=== PATIENT | female | born 1970 | race Caucasian/White ===

== ENCOUNTER 2018-03-10 15:54 | Observation (INO) | payer MEDICAID, SELFPAY ==
[2018-03-10 15:54] VITALS: BP 160/109; PULSE 108; RESP 24; TEMP 36.9; O2SAT 85; BMI 38.4
--- NOTE | 2018-03-10 16:06 | EKG12_ITS ---
Test Reason : SOB Blood Pressure : / mmHG Vent. Rate : 093 BPM Atrial Rate : 093 BPM P-R Int : 134 ms QRS Dur : 080 ms QT Int : 354 ms P-R-T Axes : 075 066 051 degrees QTc Int : 440 ms Normal sinus rhythm Normal ECG Confirmed by SASKIA COBURN ([id number]), publications editor CELINE CORONEL ([id number]) on 03/12/2018 2:19:47 PM Referred By: SOCORRO Confirmed By:SASKIA COBURN
--- NOTE | 2018-03-10 16:10 | RAD_ITS ---
STUDY: X-RAY CHEST REASON FOR EXAM: Female, 47 years old. Cough TECHNIQUE: Frontal view of the chest COMPARISON: 10/26/2017 FINDINGS: The lungs are clear. There are no pleural effusions. There is no pneumothorax. The heart is normal in size. The visualized osseous structures are within normal limits. RAD/Chest 1 View (Portable) IMPRESSION: No acute thoracic pathology. Electronically Signed: Kwan Sahu, at 16:40 EDT Tel , Service support ,
--- NOTE | 2018-03-10 16:22 | ED.VISSUMM ---
- ER Visit Summary Date of Service: 03/10/18 Chief Complaint: Shortness of breath History of Present Illness: The patient is a 47 F with history of COPD who uses oxygen from time to time at home presents to the emergency department shortness of breath. Patient states over the past 2-3 days, she has had gradually worsening shortness of breath. The patient states that she has started smoking again. She does follow with Dr. Dupont for pulmonology. She states she feels like she cannot catch her breath. She denies any chest pain. She has had no productive sputum. She denies fevers but has had chills and sweats. She states she just feels like she cannot get anything up. She has been using her nebulizer every 4 hours. She feels like it is not helping. The last time she has been on steroids or antibiotics was greater than 3 months ago. Physical Examination: Vital signs reviewed General: Well-nourished, well-developed Head: Normocephalic, atraumatic Eyes: Pupils equal and reactive, extraocular muscles intact Neck, supple, no lymphadenopathy Heart: Regular tachycardiac rate Respiratory: Accessory muscle use with wheezing in all [place] Abdomen: Soft, nontender, nondistended, no peritoneal signs Back: Nontender Extremities: Nontender, no edema, no cords Skin: Normal color no rash Neuro: Alert and oriented, no focal or lateralizing deficits Test Results: [] Emergency Department Course and Treatment: The patient presents with hypoxia, wheezing, shortness of breath. X-ray was obtained. There is no focal infiltrate. Labs are obtained and relatively unremarkable. With treatments and steroids, the patient's aeration improved. She still has some resting bronchospasm. At this time, given the severity of her symptoms, increased oxygen requirement, and persistent bronchospasm I do feel that she will benefit from admission. I did cover the patient with azithromycin. She had already been given Solu-Medrol. Patient was discussed with the hospitalist and will be admitted. Treatment Plan: [] Disposition: Admission Impression: 1. COPD exacerbation This note was generated with [employer] software. It may contain incorrect words, spelling, and punctuation that were not noted in review of the chart prior to signing ED Disposition - Plan for ED Patient: Chief Complaint: Shortness of Breath Referrals: Rita Melton MD [Primary Care Provider] -
[2018-03-10] MEDS: 0.9% Normal Saline 1,000 ML 150 ML IV (16:24)
[2018-03-10] MEDS: Ipratropium/Albuterol Sulfate 3 ML AMPUL.NEB INHALATION (16:25)
[2018-03-10] MEDS: Albuterol 2.5 MG/3 ML VIAL.NEB. INHALATION ×3 (16:25)
[2018-03-10 16:26] VITALS: PULSE 90; RESP 20
[2018-03-10 16:30] LABS: Absolute Lymphocyte Count 1.98 X10^3/ul (0.83-4.51); Absolute Neutrophil Count 6.9 X10^3/uL (2.0-7.7); Basophil# 0.05 X10^3/uL; Basophil% 0.5 % (0-1); Eosinophil# 0.31 X10^3/uL; Eosinophils% 3.1 % (0-5); Hematocrit 45.6 % (37-47); Hemoglobin 14.8 g/dl (12.0-15.0); Lymphocyte # 1.98 X10^3/ul (4.0); Lymphocyte % 19.9 % (19-41); Mean Corp Hgb Conc 32.5 g/gl (32-36); Mean Corpuscular Hgb 28.8 pg (27.0-32.0); Mean Corpuscular Volume 88.9 fL (81-99); Mean Platelet Vol. 9.9 fl (6.2-12.0); Monocyte# 0.67 X10^3/uL; Monocyte% 6.7 % (0-10); Neutrophil # 6.91 X10^3/uL (2.7-7.7); Neutrophil % 69.6 % (47-70); Platelet Count 524 K/mm3 (150-450); RBC Distribution Width SD 44.6 fl (35.1-43.9); Red Blood Count 5.13 M/mm3 (4.2-5.4); White Blood Count 9.9 K/mm3 (4.4-11.0)
[2018-03-10] MEDS: MethylPREDNISolone 125 MG/2 ML Vial IV (16:30)
[2018-03-10 16:34] LABS: POSITIVE COUNT NO; POSITIVE DIFFERENTIAL NO; POSITIVE MORPHOLOGY NO
[2018-03-10 16:50] LABS: Anion Gap 8 (5-15); BUN 12 mg/dL (7-18); BUN/Creat Ratio 16.5 RATIO (10-20); Chloride 99 mmol/L (98-107); Creatinine, Serum 0.73 mg/dL (0.55-1.02); EST Glomerular Filtration Rate 92 mL/min (>60); Est Glom Filt Rate - Afr Amer 111 mL/min (>60); Estimated Creatinine Clearance 76.16 ml/min; Glucose 210 mg/dL (74-106); Sodium Level 139 mmol/L (136-145)
[2018-03-10 16:59] LABS: Lactic Acid 1.7 mmol/L (0.4-2.0)
[2018-03-10 17:10] VITALS: BP 159/84; PULSE 91; RESP 16; O2SAT 96
[2018-03-10 17:26] VITALS: BMI 38.4
[2018-03-10 17:29] VITALS: BP 157/91; PULSE 66; RESP 16; O2SAT 97
[2018-03-10 17:29] LABS: BNP,B-Type NATRIURETIC PEPTIDE 13.7 pg/mL (0-100)
[2018-03-10 17:57] VITALS: BMI 41.2
[2018-03-10 18:00] VITALS: BP 150/96; PULSE 95; RESP 20; TEMP 36.6; O2SAT 93
--- NOTE | 2018-03-10 19:04 | HP.PCM_ITS ---
Problem List (1) COPD with acute exacerbation Status: Acute (2) Asthma Status: Chronic Qualifiers: Asthma severity: unspecified severity Asthma persistence: unspecified Asthma complication type: unspecified Qualified Code(s): J45.909 - Unspecified asthma, uncomplicated; J45.909 - Unspecified asthma, uncomplicated; J45.909 - Unspecified asthma, uncomplicated (3) Benign essential hypertension Status: Chronic (4) Chronic back pain Status: Chronic (5) Diabetes mellitus, type II Status: Chronic (6) GERD (gastroesophageal reflux disease) Status: Chronic History of Present Illness Date of Admission: 03/10/18 Chief Complaint: shorthness of breath, cough and wheezing The patient is a 47 year old F with past medical history of COPD/asthma, type II, essential hypertension and obesity who presented to the emergency room due to progressive shortness of breath cough and wheezing past 2 days. She used her home bronchodilator therapy with no relief and she decided to come to the emergency room for further evaluation. Her chest x-ray showed no acute thoracic pathology. Was diagnosed with acute COPD exacerbation, she was given IV steroids bronchodilator therapy and IV Zithromax in the emergency room and admitted to the hospital for further management. When I saw her she was alert and oriented to time place and person ,she was apparently tachypneic with use of accessory respiratory musculature. Past Medical History Past Medical History (Chronic Problems): Chronic Problems (Last Reviewed 11/13/17 @ 09:36 by Danni Bahena NP-C) Tobacco abuse (Chronic) Benign essential hypertension (Chronic) Herniated thoracic disc without myelopathy (Chronic) Chronic back pain (Chronic) COPD (Chronic) Asthma (Chronic) GERD (gastroesophageal reflux disease) (Chronic) Obesity (BMI 30-39.9) (Chronic) Diabetes mellitus, type II (Chronic) Allergies aspirin Allergy (Verified 03/10/18 15:56) Anaphylaxis cyclobenzaprine HCl [From Flexeril] Allergy (Verified 03/10/18 15:56) Rash levofloxacin [From Levaquin] Allergy (Verified 03/10/18 15:56) Rash naproxen [From Naprosyn] Allergy (Verified 03/10/18 15:56) Anaphylaxis bupropion HCl [From Wellbutrin] Adverse Reaction (Verified 03/10/18 17:24) nightmares NIGHTMARES doxycycline Adverse Reaction (Verified 03/10/18 15:56) Diarrhea Home Medications: Ambulatory Orders Medication Instructions Recorded Amlodipine [Norvasc] 10 mg PO DAILY 08/13/15 Lisinopril [Zestril] 40 mg PO DAILY 02/11/16 Hydrochlorothiazide [Hctz] 25 mg PO DAILY 10/26/17 Oxygen, Home [Home Oxygen] 2 - 4 lpm NASAL PRN PRN 10/26/17 Albuterol Aerosols [Ventolin 2.5 mg INHALATION Q2H PRN PRN #1 10/29/17 Aerosols] box Albuterol IH (ProAir) [Proair Hfa] 2 puff INHALATION Q4H PRN PRN #1 10/29/17 inhaler epinephrine 1 mg/mL injection kit 1 mg IM Q10M PRN #1 ea 11/13/17 Budesonide/Formoterol 160/4.5 2 puff INHALATION BID 03/10/18 [Symbicort 160/4.5 Mcg Inhaler (SP)] Ipratropium/Albuterol Sulfate 3 ml INHALATION Q6H PRN PRN 03/10/18 [Duoneb] Surgical History: - - x 2, BLTL, chest tube 3 y/o for spontaneous pneumothorax. 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 She is para 2 4 with 2 abortions. Status post IUD insertion Smoking Status: Current every day smoker Tobacco Use: Cigarettes - *Family History Sibling History Items: Pulmonary Disease - age 34 secondary to pulmonary hypertension Maternal History Items: Cancer - alive age 63, breast and skin Paternal History Items: Cancer - Skin cancer, COPD - alive age 65, Heart Disease, Hypertension, No pertinent history Review of Systems Comment: All Systems were reviewed with pertinent positives mentioned in the HPI above. VTE Information - Inpt Only VTE Present on Admission: No VTE Mechan Device Prophylaxis: SCD's VTE Pharm Prophylaxis ordered?: Yes - Physical Exam General: Alert, Oriented x3 HEENT: Atraumatic Oral: Moist Mucosa Neck: Supple, No JVD Lungs: Short of Breath, Using Accessory Muscles, Wheezes Abdomen: Bowel Sounds Present, Soft, Non Tender, Non-Distended Extremities: No edema Skin: No rashes Neurological: Cranial nerves II-XII grossly intact, Motor Exam 5/5 strength throughout Vital Signs Temp Pulse Resp BP Pulse Ox 98 F 95 20 H 150/96 H 93 03/10/18 18:00 03/10/18 18:00 03/10/18 18:00 03/10/18 18:00 03/10/18 18:00 Oxygen Flow Rate (L/min) 2 Oxygen Delivery Method Nasal Cannula Weight: 102.2 kg Body Mass Index (BMI) 41.2 Assessment/Plan 1. Acute respiratory failure with hypoxia due to acute COPD exacerbation; we will continue on supplemental oxygen and wean as tolerated. 2. Acute COPD exacerbation; we will place her on IV steroids, bronchodilator therapy and Zithromax IV. I would ask Dr. 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 3. Diabetes type II; will hold oral agents and place him on regular insulin sliding scale for glycemic spikes. 4. Essential hypertension; we will resume her home medications without change. 5. Morbid Obesity; weight loss recommended. 6. Prophylactic therapy; DVT prophylaxis with Lovenox and GI bleed prophylaxis with PPI Code Visit Inpatient E&M: 28227 Init Hosp L3
[2018-03-10 19:32] VITALS: BP 155/94; PULSE 99; RESP 20; TEMP 36.7; O2SAT 94
[2018-03-10] MEDS: Acetaminophen 325 MG Tablet 650 MG PO (21:25)
[2018-03-10 21:31] LABS: Bedside Glucose 329 mg/dL (70-110)
[2018-03-11] VITALS (14 sets, daily range): BP systolic 131–161; BP diastolic 68–118; PULSE 96–110; RESP 14–20; TEMP 36.3–37; O2SAT 94–99
[2018-03-11] MEDS: MethylPREDNISolone 125 MG/2 ML Vial 60 MG IV ×4 (00:33→22:40)
[2018-03-11] MEDS: 0.9% NaCl Peripheral Flush Adult/Peds IV ×4 (00:34→11:35)
[2018-03-11 06:07] LABS: BUN 12 mg/dL (7-18); Creatinine, Serum 0.84 mg/dL (0.55-1.02); Estimated Creatinine Clearance 66.19 ml/min; Glucose 342 mg/dL (74-106)
[2018-03-11 06:08] LABS: Anion Gap 8 (5-15); BUN/Creat Ratio 14.3 RATIO (10-20); Calcium,Total 9.2 mg/dL (8.5-10.1); Chloride 100 mmol/L (98-107); EST Glomerular Filtration Rate 78 mL/min (>60); Est Glom Filt Rate - Afr Amer 94 mL/min (>60); Potassium 4.4 mmol/L (3.5-5.1); Sodium Level 137 mmol/L (136-145)
[2018-03-11 06:11] LABS: Absolute Neutrophil Count 7.2 X10^3/uL (2.0-7.7); Basophil# 0.01 X10^3/uL; Basophil% 0.1 % (0-1); Hematocrit 45.5 % (37-47); Hemoglobin 14.3 g/dl (12.0-15.0); Lymphocyte % 10.9 % (19-41); Mean Corp Hgb Conc 31.4 g/gl (32-36); Mean Corpuscular Hgb 28.1 pg (27.0-32.0); Mean Corpuscular Volume 89.6 fL (81-99); Mean Platelet Vol. 9.9 fl (6.2-12.0); Monocyte# 0.11 X10^3/uL; Monocyte% 1.3 % (0-10); Neutrophil # 7.23 X10^3/uL (2.7-7.7); Neutrophil % 87.3 % (47-70); Platelet Count 538 K/mm3 (150-450); RBC Distribution Width CV 13.6 % (11.6-14.6); RBC Distribution Width SD 44.4 fl (35.1-43.9); Red Blood Count 5.08 M/mm3 (4.2-5.4); White Blood Count 8.3 K/mm3 (4.4-11.0)
[2018-03-11 06:26] LABS: POSITIVE COUNT NO; POSITIVE DIFFERENTIAL NO; POSITIVE MORPHOLOGY NO
[2018-03-11] MEDS: Acetaminophen 325 MG Tablet 650 MG PO ×2 (06:36→20:43)
[2018-03-11 06:46] LABS: Bedside Glucose 279 mg/dL (70-110)
[2018-03-11] MEDS: Albuterol 2.5 MG/3 ML VIAL.NEB. INHALATION (06:47)
--- NOTE | 2018-03-11 08:40 | PCM.PROGNOTE ---
Patient Problems: Active and Suspected Problems (Last Reviewed 11/13/17 @ 09:36 by Danni Bahena NP-Shoaib) Acute respiratory failure with hypoxia (Acute) Subjective: Chief complaint: Follow-up after admission for acute COPD exacerbation and acute hypoxic respiratory failure. Patient seen and examined. No acute events overnight. She reported minimal improvement of her shortness of breath, still having significant wheezing. Complains of cough with clear sputum. Denies fever chills. Denied chest pain or palpitation. Denies abdominal pain, nausea vomiting. She is afebrile, tachycardic, blood pressure slightly elevated, pulse ox is 94% on 2 L. - Physical Exam General: Alert, Oriented x3, Cooperative, - - Moderately short of breath, audible wheezing. HEENT: Atraumatic, PERRLA, EOMI Oral: Moist Mucosa, No Gingival or Mucosal Lesions/ Ulcerations Neck: Supple, No JVD, Negative Carotid Bruits, Trachea Midline, Thyroid Normal Size and Texture Lungs: No rhonchi, No rales, Short of Breath, Wheezes, - - Decreased breath sounds bilateral, bilateral expiratory wheezes. Cardiovascular: Regular rate, Regular Rhythm, Normal S1, Normal S2, No murmurs, PMI Normal, Tachycardic Abdomen: Bowel Sounds Present, Soft, Non Tender, Non-Distended, No Hepato-splenomegaly, Obese Extremities: No clubbing, No cyanosis, No edema Skin: No rashes, No breakdown Lymphatic: No Cervical, Supraclavicular, or Inguinal Adenopathy Neurological: Cranial nerves II-XII grossly intact, Motor Exam 5/5 strength throughout Psych/Mental Status: Normal Affect, Appropriate, Alert and oriented to time, place, person, mood and affect Vital Signs Temp Pulse Resp BP Pulse Ox 98.2 F 104 H 16 156/98 H 98 03/11/18 06:45 03/11/18 06:47 03/11/18 06:47 03/11/18 06:45 03/11/18 06:47 Oxygen Flow Rate (L/min) 2 Oxygen Delivery Method Nasal Cannula Weight: 225 lb 4.999 oz Body Mass Index (BMI) 41.2 Microbiology Past 72 Hours 03/10/18 23:10 Influenza Types A,B Direct FA (DARRYL) - Final Mucosa - Nose Laboratory Tests Past 24 Hrs 04/18/18 04/18/18 05:14 05:14 WBC 8.3 RBC 5.08 Hgb 14.3 Hct 45.5 MCV 89.6 MCH 28.1 MCHC 31.4 L RDW 13.6 RDW Differential 44.4 H Plt Count 538 H MPV 9.9 Immature Gran % (Auto) 0.400 Neut % (Auto) 87.3 H Lymph % (Auto) 10.9 L [place] % (Auto) 1.3 Eos % (Auto) 0.0 Baso % (Auto) 0.1 Absolute Neuts (auto) 7.2 Absolute Lymphs (auto) 0.90 Total Counted Not Reportable Sodium 137 Potassium 4.4 Chloride 100 Carbon Dioxide 29.0 Anion Gap 8 BUN 12 Creatinine 0.84 Estim Creat Clear Calc 66.19 Est GFR (MDRD) Af Amer 94 Est GFR (MDRD) Non-Af 78 BUN/Creatinine Ratio 14.3 Glucose 342 H Calcium 9.2 POC Glucose 03/11/18 03/10/18 06:34 21:24 POC Glucose 279 H 329 H Clinical Impression(s) from Imaging Studies Chest X-Ray 03/10/18 16:10 IMPRESSION: No acute thoracic pathology. Electronically Signed: Kwan Cristinaaaron, at 16:40 EDT Tel , Service support , Medical Necessity - Tobacco Use Smoking Status: Current every day smoker Tobacco Use: Cigarettes Assessment/Plan Active and Suspected Problems (Last Reviewed 11/13/17 @ 09:36 by Danni Bahena NP-C) Acute respiratory failure with hypoxia (Acute) This is a 47 years old female patient presented to the emergency room because of shortness of breath, wheezing and cough and she was found to have acute COPD exacerbation complicated by acute hypoxic respiratory failure and also found to have hyperglycemia secondary to steroids. #1 acute COPD exacerbation: She is on IV Solu-Medrol, IV Zithromax and bronchodilators. She reported mild improvement of her symptoms. Still requiring oxygen at 2 L. According to the patient, she has been on oxygen as needed at home and she uses it only when she had COPD flareup. Normally, she is not on oxygen. Chest x-ray showed no acute infiltrate, pneumonia ruled out. Nasal swab for influenza a and B were negative. Respiratory panel for viruses is pending. Blood cultures pending. Pulmonology consulted. Plan: Continue same treatment. #2 acute hypoxic respiratory failure: Secondary to above, patient was on oxygen at home 1 week as needed but normally she does not use it. At this time, she is on 2 L with audible wheezing and she is short of breath. Plan as above. #3 type 2 diabetes mellitus/ hyperglycemia: Patient is not taking any medication and she mentioned that her blood sugars only high when she is on IV Solu-Medrol. Her hemoglobin A1c was 8.5 on October, and this is consistent with type 2 diabetes mellitus. Plan: Start Levemir insulin twice daily, continue sliding scale, nutrition consult for diabetic education, will need to start him on oral hypoglycemic drug. #4 hypertension: Blood pressure stable, continue HCTZ and lisinopril. #5 chronic back pain: Stable, no acute issues. She is not on chronic pain medicine. #6 GERD: Continue Protonix. #7 DVT prophylaxis: Subcu Lovenox. This note was generated with [employer] dictation software. It may contain incorrect words, spelling, and punctuation that were not noted in checking the note before signing. Code Visit Inpatient E&M: 40561 Subs Hosp L2
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
[2018-03-11] MEDS: Pantoprazole Sodium 40 MG Tablet PO (09:54)
[2018-03-11] MEDS: amLODIPine 10 MG Tablet PO (09:54)
[2018-03-11] MEDS: Lisinopril 40 MG Tablet PO (09:54)
[2018-03-11] MEDS: hydroCHLOROthiazide 25 MG Tablet PO (09:54)
[2018-03-11] MEDS: Enoxaparin 40 MG/0.4 ML Syringe SC (09:54)
[2018-03-11 10:41] LABS: Bedside Glucose 393 mg/dL (70-110)
--- NOTE | 2018-03-11 11:20 | CASEMGMT ---
Addendum entered by Cindi Castaneda 03/11/18 11:39: Referral made to DIMITRY Johnson regarding Medicaid application and financial services. Original Note: RN HOANG Face to Face with patient for initial transition planning/care coordination assessment. RN HOANG introduced self and role at [facility]. Patient lying in bed, alert and oriented. Patient willing to participate in assessment and is able to answer all questions appropriately. Care providers, pharmacy, and demographics verified. See link attached. Patient wishes to discharge home, denies need for home health at this time. Patient states she has no further needs or concerns at this time. Patient states that she has a concentrator and portable tanks at home from [employer]. Patient states that she thinks her concetrator is not working properly. RN HOANG offered to call [facility] to arrange for aviation safety technician to come to house to service concentrator and tanks. Patient stated that she would do it herself since she doesn't have insurance right now and doesn't want a bill. Patient requested number for [employer]. RN CM will provide number for [employer] to patient. RN CM called Kary at [facility] in regards to patient's services. Per Kary, patient has a bill with [employer] and they have been trying to get in touch with patient to setup payment plan or update insurance. If patient would reach out to [employer] and setup payment plan then they would service the concentrator. RN CM will update patient regarding information from [employer]. CM to follow for discharge planning needs that may arise. Disposition Plan: Patient to discharge home with family support and follow-up plans in place. Ivelisse CUELLAR, RN, CM
--- NOTE | 2018-03-11 12:24 | CASEMGMT ---
Social Work Note SW provided pt with Medicaid application. Pt would like to fill out application herself and take it to S at discharge. SW asked pt if she needed any other resources and pt denied. Pt denied additional needs or concerns at this time. 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
[2018-03-11] MEDS: Ipratropium/Albuterol Sulfate 3 ML AMPUL.NEB INHALATION ×3 (15:35→22:47)
[2018-03-11 17:11] LABS: Bedside Glucose > 500 mg/dL (70-110)
[2018-03-11 19:21] LABS: Bedside Glucose > 500 mg/dL (70-110)
[2018-03-11 20:51] LABS: Glucose 509 mg/dL (74-106)
[2018-03-11 22:50] LABS: Bedside Glucose 399 mg/dL (70-110)
[2018-03-12] VITALS (10 sets, daily range): BP systolic 140–161; BP diastolic 76–92; PULSE 98–113; RESP 12–22; TEMP 36.6; O2SAT 95–98
[2018-03-12] MEDS: Ipratropium/Albuterol Sulfate 3 ML AMPUL.NEB INHALATION ×5 (02:59→23:15)
[2018-03-12 06:13] LABS: Anion Gap 8 (5-15); BUN 21 mg/dL (7-18); BUN/Creat Ratio 26.1 RATIO (10-20); Calcium,Total 9.1 mg/dL (8.5-10.1); Chloride 101 mmol/L (98-107); Creatinine, Serum 0.81 mg/dL (0.55-1.02); EST Glomerular Filtration Rate 81 mL/min (>60); Est Glom Filt Rate - Afr Amer 98 mL/min (>60); Estimated Creatinine Clearance 68.64 ml/min; Glucose 330 mg/dL (74-106); Potassium 4.4 mmol/L (3.5-5.1); Sodium Level 136 mmol/L (136-145)
[2018-03-12 06:24] LABS: Absolute Neutrophil Count 19.1 X10^3/uL (2.0-7.7); Basophil# 0.01 X10^3/uL; Hematocrit 44.7 % (37-47); Hemoglobin 14.2 g/dl (12.0-15.0); Lymphocyte % 5.7 % (19-41); Mean Corp Hgb Conc 31.8 g/gl (32-36); Mean Corpuscular Hgb 28.3 pg (27.0-32.0); Mean Corpuscular Volume 89.2 fL (81-99); Mean Platelet Vol. 10.1 fl (6.2-12.0); Monocyte% 3.8 % (0-10); Neutrophil # 19.13 X10^3/uL (2.7-7.7); Neutrophil % 90.2 % (47-70); Platelet Count 537 K/mm3 (150-450); RBC Distribution Width CV 13.7 % (11.6-14.6); RBC Distribution Width SD 44.6 fl (35.1-43.9); Red Blood Count 5.01 M/mm3 (4.2-5.4); White Blood Count 21.2 K/mm3 (4.4-11.0)
[2018-03-12 06:31] LABS: POSITIVE COUNT NO; POSITIVE DIFFERENTIAL NO; POSITIVE MORPHOLOGY NO
[2018-03-12 06:46] LABS: Bedside Glucose 352 mg/dL (70-110)
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
[2018-03-12] MEDS: Acetaminophen 325 MG Tablet 650 MG PO ×2 (08:35→16:14)
[2018-03-12] MEDS: predniSONE 20 MG Tablet 40 MG PO (08:36)
[2018-03-12] MEDS: hydroCHLOROthiazide 25 MG Tablet PO (08:37)
[2018-03-12] MEDS: Lisinopril 40 MG Tablet PO (08:37)
[2018-03-12] MEDS: amLODIPine 10 MG Tablet PO (08:37)
[2018-03-12] MEDS: Enoxaparin 40 MG/0.4 ML Syringe SC (08:37)
[2018-03-12] MEDS: Pantoprazole Sodium 40 MG Tablet PO (08:38)
--- NOTE | 2018-03-12 08:41 | PN_ITS ---
Patient Problems: Active and Suspected Problems (Last Reviewed 11/13/17 @ 09:36 by Danni Bahena NP-Shoaib) Acute respiratory failure with hypoxia (Acute) Subjective: The patient was seen and examined. She is complaining of fatigue since she did not sleep well last night. States she had a bad dream. No complaints of worsening breathing. Feels overall somewhat better today. Patient saturating 98% on 2 L of oxygen supplementation. Ambulating to the bathroom without difficulty. Blood sugars elevated with IV steroids. Viral respiratory panel was negative. Blood cultures are pending. Sputum has not yet been collected, provided specimen cup to the patient. - Physical Exam General: Alert, Oriented x3, Cooperative, No apparent distress, - - No conversational dyspnea HEENT: Atraumatic, Normocephalic Oral: Moist Mucosa Neck: Supple, No Nodes, Trachea Midline Lungs: No rhonchi, No rales, Diminished, Wheezes - Improved Cardiovascular: Regular Rhythm, Normal S1, Normal S2, No murmurs, No rub noted, No Gallop, Tachycardic Abdomen: Bowel Sounds Present, Soft, Non Tender, Obese Extremities: No cyanosis, No edema, Clubbing Skin: No rashes, No breakdown Musculoskeletal: No Tenderness to Palpation of Joints or Extremities Lymphatic: No Cervical, Supraclavicular, or Inguinal Adenopathy Neurological: Neuro grossly intact Psych/Mental Status: Alert and oriented to time, place, person, mood and affect Vital Signs Temp Pulse Resp BP Pulse Ox 98 F 100 16 161/92 H 98 03/12/18 02:00 03/12/18 03:00 03/12/18 03:00 03/12/18 02:00 03/12/18 02:00 Oxygen Flow Rate (L/min) 2 Oxygen Delivery Method Nasal Cannula Weight: 225 lb 4.999 oz Body Mass Index (BMI) 41.2 Intake and Output for Last 24 Hours 03/10/18 03/11/18 03/12/18 23:59 23:59 23:59 Intake Total 700 / 700 Balance 700 / 700 Microbiology Past 72 Hours 03/11/18 11:00 Respiratory Panel (PCR) - Final Mucosa - Nose 03/10/18 23:10 Influenza Types A,B Direct FA (DARRYL) - Final Mucosa - Nose Laboratory Tests Past 24 Hrs 04/18/18 04/19/18 04/19/18 20:16 05:40 05:40 WBC 21.2 H RBC 5.01 Hgb 14.2 Hct 44.7 MCV 89.2 MCH 28.3 MCHC 31.8 L RDW 13.7 RDW Differential 44.6 H Plt Count 537 H MPV 10.1 Immature Gran % (Auto) 0.300 Neut % (Auto) 90.2 H Lymph % (Auto) 5.7 L [place] % (Auto) 3.8 Eos % (Auto) 0.0 Baso % (Auto) 0.0 Absolute Neuts (auto) 19.1 H Absolute Lymphs (auto) 1.20 Total Counted Not Reportable Sodium 136 Potassium 4.4 Chloride 101 Carbon Dioxide 27.0 Anion Gap 8 BUN 21 H Creatinine 0.81 Estim Creat Clear Calc 68.64 Est GFR (MDRD) Af Amer 98 Est GFR (MDRD) Non-Af 81 BUN/Creatinine Ratio 26.1 H Glucose 509 H* 330 H Calcium 9.1 POC Glucose 03/12/18 03/11/18 03/11/18 06:39 22:37 19:14 POC Glucose 352 H 399 H > 500 H* 03/11/18 03/11/18 17:02 10:32 POC Glucose > 500 H* 393 H Medical Necessity - Tobacco Use Smoking Status: Current every day smoker Tobacco Use: Cigarettes Assessment/Plan Active and Suspected Problems (Last Reviewed 11/13/17 @ 09:36 by Danni Bahena, NEEDLEWORKER-C) Acute respiratory failure with hypoxia (Acute) RECOMMENDATIONS 1. Wean oxygen supplementation to keep saturations 88-92%. 2. Encourage incentive spirometer and Acapella 3. Increase activity as tolerated, mobilize 4. Continue bronchodilators, resume Symbicort and albuterol upon discharge 5. Likely okay to discontinue antibiotics, pending culture results 6. Transition to oral steroids today 7. Nicotine patch, may need script at discharge IMPRESSIONS 1. Acute hypoxic respiratory failure, likely secondary to COPD exacerbation Viral vs infectious, however I suspect viral as no indication of infection thus far. White count today but likely from steroids. Maintaining appropriate saturations on 2L of nasal oxygen. Patient does have element of bronchiectasis as evidenced by CTA of the chest in October 2017. Initiate Acapella while in the hospital and at home, she admits noncompliance with that as well. Also states her home oxygen unit is not working, patient needs to contact [facility] [place]. Patient did have recent travel to [place], however the likelihood of PE is low given her symptoms. She does have significant anxiety, which can contribute to her dyspnea. Transition to oral steroids today. Continue bronchodilators. Wean oxygen supplementation to keep saturations 88-92% in order to prevent paradoxical CO2 retention. 2. Presumed asthma and presumed COPD The patient last saw Danni Bahena NP in the pulmonary clinic in October 2017 for hospital follow-up. She did not follow through with recommended testing, did not have a ride since having issues w/boyfriend. She was aware that we have a hospital van service here but did not call to set up transportation with them. Ran out of her Symbicort several weeks ago and has not followed up with this as well. She has a history of noncompliance with medication and follow-up visits. Stressed the importance of staying on her medication and obtaining baseline testing so her pulmonary function status can be optimized. Complete pulmonary function tests need to be rescheduled, as well as formal 6 minute walk. 3. Ongoing tobacco abuse Patient reports she quit smoking for several months after she was last hospitalized in October, decided to start smoking because she was stressed out on the way to [place] in January. Patient advised that her smoking is likely a significant contributor to her shortness of breath and activity intolerance. Counseled on smoking cessation, nicotine patch ordered. Unsure if she wants script at d/c, states she is too stressed right now to quit. 4. Hypertension/diabetes/GERD/chronic back pain/morbid obesity/hypersomnia Complicates care, management, recovery, and prognosis. Continue home medications as indicated. Patient noncompliant with follow-up, she had a polysomnogram ordered but did not follow through testing. This can be reordered as an outpatient, as patient likely has element of obstructive sleep apnea. Adjust insulin while on steroids, blood sugars have been persistently high. Thank you for the opportunity to participate in this patient's care, please do not hesitate contact us with any further questions or concerns. This note was generated with [employer] software. It may contain incorrect words, spelling, and punctuation that were not noted in checking the note before signing.
--- NOTE | 2018-03-12 09:06 | PN_ITS ---
Patient Problems: Active and Suspected Problems (Last Reviewed 11/13/17 @ 09:36 by Danni Bahena NP-Shoaib) Acute respiratory failure with hypoxia (Acute) Subjective: Chief complaint: Follow-up after admission for acute COPD exacerbation, acute hypoxic respiratory failure and uncontrolled type 2 diabetes mellitus. Patient seen and examined. No acute events overnight. She is feeling better but still having wheezing and cough. His sugar has been highly elevated yesterday and last night. She is afebrile, blood pressure stable, heart rate stable, pulse ox is 95% on 1 L. - Physical Exam General: Alert, Oriented x3, Cooperative, - - Mildly shortness of breath. HEENT: Atraumatic, PERRLA, EOMI Oral: Moist Mucosa, No Gingival or Mucosal Lesions/ Ulcerations Neck: Supple, No JVD, Negative Carotid Bruits, Trachea Midline, Thyroid Normal Size and Texture Lungs: Clear to auscultation, No rhonchi, No rales, Diminished, Wheezes, - - Decreased breath sounds bilateral, bilateral and expiratory wheezes. Cardiovascular: Regular rate, Regular Rhythm, Normal S1, Normal S2, PMI Normal Abdomen: Bowel Sounds Present, Soft, Non Tender, Non-Distended, No Hepato- splenomegaly Extremities: No clubbing, No cyanosis, No edema Skin: No rashes, No breakdown Lymphatic: No Cervical, Supraclavicular, or Inguinal Adenopathy Neurological: Cranial nerves II-XII grossly intact, Neuro grossly intact Psych/Mental Status: Normal Affect, Appropriate, Alert and oriented to time, place, person, mood and affect Vital Signs Temp Pulse Resp BP Pulse Ox 97.9 F 98 20 H 140/76 H 95 03/12/18 08:30 03/12/18 08:30 03/12/18 08:30 03/12/18 08:30 03/12/18 08:30 Oxygen Flow Rate (L/min) 1 Oxygen Delivery Method Nasal Cannula Weight: 225 lb 4.999 oz Body Mass Index (BMI) 41.2 Intake and Output for Last 24 Hours 03/10/18 03/11/18 03/12/18 23:59 23:59 23:59 Intake Total 700 / 700 Balance 700 / 700 Microbiology Past 72 Hours 03/11/18 11:00 Respiratory Panel (PCR) - Final Mucosa - Nose 03/10/18 23:10 Influenza Types A,B Direct FA (DARRYL) - Final Mucosa - Nose Laboratory Tests Past 24 Hrs 03/11/18 03/12/18 03/12/18 20:16 05:40 05:40 WBC 21.2 H RBC 5.01 Hgb 14.2 Hct 44.7 MCV 89.2 MCH 28.3 MCHC 31.8 L RDW 13.7 RDW Differential 44.6 H Plt Count 537 H MPV 10.1 Immature Gran % (Auto) 0.300 Neut % (Auto) 90.2 H Lymph % (Auto) 5.7 L [place] % (Auto) 3.8 Eos % (Auto) 0.0 Baso % (Auto) 0.0 Absolute Neuts (auto) 19.1 H Absolute Lymphs (auto) 1.20 Total Counted Not Reportable Sodium 136 Potassium 4.4 Chloride 101 Carbon Dioxide 27.0 Anion Gap 8 BUN 21 H Creatinine 0.81 Estim Creat Clear Calc 68.64 Est GFR (MDRD) Af Amer 98 Est GFR (MDRD) Non-Af 81 BUN/Creatinine Ratio 26.1 H Glucose 509 H* 330 H Calcium 9.1 POC Glucose 03/12/18 03/11/18 03/11/18 06:39 22:37 19:14 POC Glucose 352 H 399 H > 500 H* 03/11/18 03/11/18 17:02 10:32 POC Glucose > 500 H* 393 H Medical Necessity - Tobacco Use Smoking Status: Current every day smoker Tobacco Use: Cigarettes Assessment/Plan Active and Suspected Problems (Last Reviewed 11/13/17 @ 09:36 by Danni Bahena NP-C) Acute respiratory failure with hypoxia (Acute) This is a 47 years old female patient presented to the emergency room because of shortness of breath, wheezing and cough and she was found to have acute COPD exacerbation complicated by acute hypoxic respiratory failure and also found to have hyperglycemia secondary to steroids. #1 acute COPD exacerbation: Remained on IV Solu-Medrol, IV Zithromax and bronchodilators. She reported continued slow improvement of her shortness of breath and wheezing. Pulse ox is 95% on 1 L. Chest x-ray showed no acute infiltrate, pneumonia ruled out. Nasal swab for influenza a and B were negative. Respiratory panel for viruses was negative. Blood cultures pending. Plan: DC IV site Medrol, start oral prednisone, continue other treatments. #2 acute hypoxic respiratory failure: Secondary to above, patient was on oxygen at home 1 week as needed but normally she does not use it. At this time, she is on 1 L, improving slowly. #3 type 2 diabetes mellitus/ hyperglycemia: Blood sugar has been all over the place, was more than 500. Patient is aware that hemoglobin A1c is elevated in the past but she is not on any diabetic medications. She was started on Levemir insulin twice daily yesterday. Her sugar still high in the range of 300s. Plan: Diabetic education, increase Levemir insulin to 10 units twice daily, start glipizide 5 mg p.o. twice daily, check hemoglobin A1c. #4 hypertension: Blood pressure stable, continue HCTZ and lisinopril. #5 chronic back pain: Stable, no acute issues. She is not on chronic pain medicine. #6 GERD: Continue Protonix. #7 DVT prophylaxis: Subcu Lovenox. This note was generated with [employer] dictation software. It may contain incorrect words, spelling, and punctuation that were not noted in checking the note before signing. Code Visit Inpatient E&M: 03464 Subs Hosp L2
[2018-03-12 09:45] LABS: Hemoglobin A1c 8.9 % (4.2-6.3)
[2018-03-12] MEDS: 0.9% NaCl Peripheral Flush Adult/Peds IV (11:27)
[2018-03-12 11:40] LABS: Bedside Glucose 432 mg/dL (70-110)
[2018-03-12] MEDS: Ketorolac 10 MG Tablet PO (16:13)
[2018-03-12] MEDS: LORazepam 1 MG Tablet PO (16:14)
[2018-03-12 16:20] LABS: Bedside Glucose 450 mg/dL (70-110)
[2018-03-12] MEDS: glipiZIDE 5 MG Tablet PO (16:23)
[2018-03-12 17:38] LABS: Glucose 440 mg/dL (74-106)
[2018-03-12 22:11] LABS: Bedside Glucose 215 mg/dL (70-110)
[2018-03-13] MEDS: Acetaminophen 325 MG Tablet 650 MG PO ×2 (00:58→07:38)
[2018-03-13 03:00] VITALS: O2SAT 96
[2018-03-13 03:05] VITALS: PULSE 99; RESP 20
[2018-03-13] MEDS: Ipratropium/Albuterol Sulfate 3 ML AMPUL.NEB INHALATION (03:05)
[2018-03-13 03:06] VITALS: BP 136/56; PULSE 101; RESP 16; TEMP 36.6; O2SAT 96
[2018-03-13 06:51] LABS: Bedside Glucose 174 mg/dL (70-110)
[2018-03-13 07:32] VITALS: BP 131/80; PULSE 96; RESP 18; TEMP 36.9; O2SAT 94
[2018-03-13] MEDS: Lisinopril 40 MG Tablet PO (07:34)
[2018-03-13] MEDS: glipiZIDE 5 MG Tablet PO (07:34)
[2018-03-13] MEDS: predniSONE 20 MG Tablet 40 MG PO (07:34)
[2018-03-13] MEDS: hydroCHLOROthiazide 25 MG Tablet PO (07:34)
[2018-03-13] MEDS: Pantoprazole Sodium 40 MG Tablet PO (07:34)
[2018-03-13] MEDS: Enoxaparin 40 MG/0.4 ML Syringe SC (07:34)
[2018-03-13] MEDS: amLODIPine 10 MG Tablet PO (07:34)
[2018-03-13 07:39] VITALS: O2SAT 94
--- NOTE | 2018-03-13 07:57 | PCM.DC ---
- Discharge Diagnoses Current Active Problems: Current Active and Chronic Problems (Last Reviewed 11/13/17 @ 09:36 by DILMA Ferreira) Morbid obesity with BMI of 40.0-44.9, adult (Chronic) Acute respiratory failure with hypoxia (Acute) You will use the following diet at home:: Calorie/Carbohydrate Controlled (specify 1200, 1400, etc) - 1800 david Your food should be the consistency of: Regular Discharge Activity: Return to Normal Activity Weight Bearing Status: Full weight bearing Call your doctor if you observe: Fever of 101 or Higher, Shortness of breath, Dizziness, Fainting spells, Chest pain, Increased palpitations (irregular heartbeat), Uncontrolled pain Instructions: Hyperglycemia (High Blood Sugar), Hypoglycemia (Low Blood Sugar), Using a Blood Sugar Log, What Is Type 2 Diabetes?, How to Check Your Blood Sugar, Using Injected Insulin Allergies/Adverse Reactions: Allergies aspirin Allergy (Verified 03/10/18 15:56) Anaphylaxis cyclobenzaprine HCl [From Flexeril] Allergy (Verified 03/10/18 15:56) Rash levofloxacin [From Levaquin] Allergy (Verified 03/10/18 15:56) Rash naproxen [From Naprosyn] Allergy (Verified 03/10/18 15:56) Anaphylaxis bupropion HCl [From Wellbutrin] Adverse Reaction (Verified 03/10/18 17:24) nightmares NIGHTMARES doxycycline Adverse Reaction (Verified 03/10/18 15:56) Diarrhea Medications to take at Discharge Amlodipine [Norvasc] 10 mg PO DAILY 08/13/15 Lisinopril [Zestril] 40 mg PO DAILY 02/11/16 Hydrochlorothiazide [Hctz] 25 mg PO DAILY 10/26/17 Oxygen, Home [Home Oxygen] 2 - 4 lpm NASAL PRN PRN 10/26/17 Albuterol Aerosols [Ventolin Aerosols] 2.5 mg INHALATION Q2H PRN PRN #1 box 10/29/17 Albuterol IH (ProAir) [Proair Hfa] 2 puff INHALATION Q4H PRN PRN #1 inhaler 10/29/17 epinephrine 1 mg/mL injection kit 1 mg IM Q10M PRN #1 ea 11/13/17 Budesonide/Formoterol 160/4.5 [Symbicort 160/4.5 Mcg Inhaler (SP)] 2 puff INHALATION BID 03/10/18 Ipratropium/Albuterol Sulfate [Duoneb] 3 ml INHALATION Q6H PRN PRN 03/10/18 Insulin Detemir [Levemir FlexPen] 12 units SC BID #2 insuln.pen 03/13/18 Prednisone 10 mg PO DAILY #30 tab 03/13/18 glipiZIDE [Glucotrol] 5 mg PO BIDAC #30 tab 03/13/18 The following prescriptions were given: glipiZIDE [Glucotrol] 5 mg PO BIDAC #30 tab Prednisone 10 mg PO DAILY #30 tab Insulin Detemir [Levemir FlexPen] 12 units SC BID #2 insuln.pen Primary Care Physician: Rita Melton MD [Primary Care Provider] - Please follow up with your Primary Care Physician in: 1 week. Please Follow Up With: Herminio Dupont MD When: please call his office.
--- NOTE | 2018-03-13 08:00 | DCINST_ITS ---
- Discharge Diagnoses Current Active Problems: Current Active and Chronic Problems (Last Reviewed 11/13/17 @ 09:36 by DILMA Ferreira) Morbid obesity with BMI of 40.0-44.9, adult (Chronic) Acute respiratory failure with hypoxia (Acute) You will use the following diet at home:: Calorie/Carbohydrate Controlled ( specify 1200, 1400, etc) - 1800 david Your food should be the consistency of: Regular Discharge Activity: Return to Normal Activity Weight Bearing Status: Full weight bearing Call your doctor if you observe: Fever of 101 or Higher, Shortness of breath, Dizziness, Fainting spells, Chest pain, Increased palpitations (irregular heartbeat), Uncontrolled pain Instructions: Hyperglycemia (High Blood Sugar), Hypoglycemia (Low Blood Sugar) , Using a Blood Sugar Log, What Is Type 2 Diabetes?, How to Check Your Blood Sugar, Using Injected Insulin Allergies/Adverse Reactions: Allergies aspirin Allergy (Verified 03/10/18 15:56) Anaphylaxis cyclobenzaprine HCl [From Flexeril] Allergy (Verified 03/10/18 15:56) Rash levofloxacin [From Levaquin] Allergy (Verified 03/10/18 15:56) Rash naproxen [From Naprosyn] Allergy (Verified 03/10/18 15:56) Anaphylaxis bupropion HCl [From Wellbutrin] Adverse Reaction (Verified 03/10/18 17:24) nightmares NIGHTMARES doxycycline Adverse Reaction (Verified 03/10/18 15:56) Diarrhea Medications to take at Discharge Amlodipine [Norvasc] 10 mg PO DAILY 08/13/15 Lisinopril [Zestril] 40 mg PO DAILY 02/11/16 Hydrochlorothiazide [Hctz] 25 mg PO DAILY 10/26/17 Oxygen, Home [Home Oxygen] 2 - 4 lpm NASAL PRN PRN 10/26/17 Albuterol Aerosols [Ventolin Aerosols] 2.5 mg INHALATION Q2H PRN PRN #1 box 05/10 Albuterol IH (ProAir) [Proair Hfa] 2 puff INHALATION Q4H PRN PRN #1 inhaler 05/10 epinephrine 1 mg/mL injection kit 1 mg IM Q10M PRN #1 ea 11/13/17 Budesonide/Formoterol 160/4.5 [Symbicort 160/4.5 Mcg Inhaler (SP)] 2 puff INHALATION BID 03/10/18 Ipratropium/Albuterol Sulfate [Duoneb] 3 ml INHALATION Q6H PRN PRN 03/10/18 Insulin Detemir [Levemir FlexPen] 12 units SC BID #2 insuln.pen 03/13/18 Prednisone 10 mg PO DAILY #30 tab 03/13/18 glipiZIDE [Glucotrol] 5 mg PO BIDAC #30 tab 03/13/18 The following prescriptions were given: glipiZIDE [Glucotrol] 5 mg PO BIDAC #30 tab Prednisone 10 mg PO DAILY #30 tab Insulin Detemir [Levemir FlexPen] 12 units SC BID #2 insuln.pen Primary Care Physician: Rita Melton MD [Primary Care Provider] - Please follow up with your Primary Care Physician in: 1 week. Please Follow Up With: Herminio Dupont MD When: please call his office.
[2018-03-13 08:01] LABS: Anion Gap 8 (5-15); BUN 22 mg/dL (7-18); BUN/Creat Ratio 32.2 RATIO (10-20); Calcium,Total 8.8 mg/dL (8.5-10.1); Chloride 101 mmol/L (98-107); Creatinine, Serum 0.68 mg/dL (0.55-1.02); EST Glomerular Filtration Rate 98 mL/min (>60); Est Glom Filt Rate - Afr Amer 119 mL/min (>60); Estimated Creatinine Clearance 81.76 ml/min; Glucose 165 mg/dL (74-106); Potassium 3.6 mmol/L (3.5-5.1); Sodium Level 137 mmol/L (136-145)
--- NOTE | 2018-03-13 08:10 | PN_ITS ---
Patient Problems: Active and Suspected Problems (Last Reviewed 11/13/17 @ 09:36 by DILMA Ferreira) Acute respiratory failure with hypoxia (Acute) Subjective: Patient was seen and examined. She is sitting up in bed, finishing up with breakfast. Denies any current shortness of breath. Reports moderate subjective improvement in her breathing. Maintaining appropriate saturations on room air. Still complains of a dry cough, less sputum production. Again, educated on smoking cessation and was encouraged to continue nicotine patch. She is agreeable to try. Stressed the importance of her following up in the pulmonary clinic as a baseline testing can be obtained, and the patient can have a better plan of care going forward to control her breathing issues. Objective: Recent lab and culture data reviewed. Blood cultures and respiratory panel negative. Sputum culture is pending. - Physical Exam General: Alert, Oriented x3, Cooperative, No apparent distress, Well developed, Well nourished HEENT: Atraumatic, Normocephalic Oral: Moist Mucosa Neck: Supple, No Nodes, Trachea Midline Lungs: No rhonchi, No rales, Diminished, Wheezes - minimal. improved air flow today Cardiovascular: Regular rate, Regular Rhythm, Normal S1, Normal S2, No murmurs Abdomen: Bowel Sounds Present, Soft, Non Tender, Obese Extremities: No cyanosis, No edema Skin: No rashes, No breakdown Musculoskeletal: No Tenderness to Palpation of Joints or Extremities Lymphatic: No Cervical, Supraclavicular, or Inguinal Adenopathy Neurological: Neuro grossly intact Psych/Mental Status: Alert and oriented to time, place, person, mood and affect Vital Signs Temp Pulse Resp BP Pulse Ox 98.5 F 96 18 131/80 H 94 03/13/18 07:32 03/13/18 07:32 03/13/18 07:32 03/13/18 07:32 03/13/18 07:32 Oxygen Flow Rate (L/min) 1 Oxygen Delivery Method Room Air Weight: 225 lb 4.999 oz Body Mass Index (BMI) 41.2 Intake and Output for Last 24 Hours 03/11/18 03/12/18 03/13/18 23:59 23:59 23:59 Intake Total 2252 / 2252 750 / 750 Balance 2252 / 2252 750 / 750 Microbiology Past 72 Hours 03/11/18 11:00 Respiratory Panel (PCR) - Final Mucosa - Nose 03/10/18 23:10 Influenza Types A,B Direct FA (DARRYL) - Final Mucosa - Nose Laboratory Tests Past 24 Hrs 03/12/18 03/12/18 03/13/18 05:40 16:55 07:08 WBC Pending RBC Pending Hgb Pending Hct Pending MCV Pending MCH Pending MCHC Pending RDW Pending RDW Differential Pending Plt Count Pending Neut % (Auto) Pending Absolute Neuts (auto) Pending Total Counted Pending Sodium Potassium Chloride Carbon Dioxide Anion Gap BUN Creatinine Estim Creat Clear Calc Est GFR (MDRD) Af Amer Est GFR (MDRD) Non-Af BUN/Creatinine Ratio Glucose 440 H Hemoglobin A1c 8.9 H Calcium 03/13/18 07:08 WBC RBC Hgb Hct MCV MCH MCHC RDW RDW Differential Plt Count Neut % (Auto) Absolute Neuts (auto) Total Counted Sodium 137 Potassium 3.6 Chloride 101 Carbon Dioxide 28.0 Anion Gap 8 BUN 22 H Creatinine 0.68 Estim Creat Clear Calc 81.76 Est GFR (MDRD) Af Amer 119 Est GFR (MDRD) Non-Af 98 BUN/Creatinine Ratio 32.2 H Glucose 165 H Hemoglobin A1c Calcium 8.8 POC Glucose 03/13/18 03/12/18 03/12/18 06:43 21:06 16:16 POC Glucose 174 H 215 H 450 H 03/12/18 11:30 POC Glucose 432 H Medical Necessity - Tobacco Use Smoking Status: Current every day smoker Tobacco Use: Cigarettes Assessment/Plan Active and Suspected Problems (Last Reviewed 11/13/17 @ 09:36 by Danni Bahena, CHIQUIS-C) Acute respiratory failure with hypoxia (Acute) RECOMMENDATIONS 1. Wean oxygen supplementation to keep saturations 88-92%. 2. Encourage incentive spirometer and Acapella 3. Increase activity as tolerated, mobilize 4. Continue bronchodilators, resume Symbicort and albuterol upon discharge 5. Continue oral steroids, 12 day taper at discharge 6. Nicotine patch, script sent to pharmacy 7. Okay to discharge from pulmonary standpoint 8. Follow up appointment in pulmonary clinic in 2 weeks with DISTRICT ASSOCIATE JUDGE, at which time testing can be reordered 9. Please provide the patient with hospital van service information IMPRESSIONS 1. Acute hypoxic respiratory failure, likely secondary to COPD exacerbation Viral vs infectious, however I suspect viral as no indication of infection thus far. White count today but likely from steroids. Maintaining appropriate saturations on 2L of nasal oxygen. Patient does have element of bronchiectasis as evidenced by CTA of the chest in October 2017. Initiate Acapella while in the hospital and at home, she admits noncompliance with that as well. Also states her home oxygen unit is not working, patient needs to contact DME. Patient did have recent travel to [place], however the likelihood of PE is low given her symptoms. She does have significant anxiety, which can contribute to her dyspnea. Continue prednisone, 12 day taper at discharge. Continue bronchodilators. 2. Presumed asthma and presumed COPD The patient last saw Danni Bahena NP in the pulmonary clinic in October 2017 for hospital follow-up. She did not follow through with recommended testing, did not have a ride since having issues w/boyfriend. Ran out of her Symbicort several weeks ago and has not followed up with this as well. She has a history of noncompliance with medication and follow-up visits. Stressed the importance of staying on her medication and obtaining baseline testing so her pulmonary function status can be optimized. Complete pulmonary function tests need to be rescheduled, as well as formal 6 minute walk. 3. Ongoing tobacco abuse Patient reports she quit smoking for several months after she was last hospitalized in October, decided to start smoking because she was stressed out on the way to [place] in January. Patient advised that her smoking is likely a significant contributor to her shortness of breath and activity intolerance. Counseled on smoking cessation, nicotine patch ordered. Unsure if she wants script at d/c, states she is too stressed right now to quit. 4. Hypertension/diabetes/GERD/chronic back pain/morbid obesity/hypersomnia Complicates care, management, recovery, and prognosis. Continue home medications as indicated. Patient noncompliant with follow-up, she had a polysomnogram ordered but did not follow through testing. This can be reordered as an outpatient, as patient likely has element of obstructive sleep apnea. Steroids changed to oral and blood sugars are improved. Thank you for the opportunity to participate in this patient's care, please do not hesitate contact us with any further questions or concerns. This note was generated with [employer] software. It may contain incorrect words, spelling, and punctuation that were not noted in checking the note before signing.
[2018-03-13 08:30] VITALS: O2SAT 91
[2018-03-13 09:04] LABS: Reactive Lymphocyte 1+
[2018-03-13 09:05] LABS: Red Cell Morphology NORM C+C NORMAL (NORM C&C)
[2018-03-13 09:06] LABS: Absolute Lymphocyte Count 4.85 X10^3/ul (0.83-4.51); Absolute Neutrophil Count 8.4 X10^3/uL (2.0-7.7); Basophil# 0.04 X10^3/uL; Basophil% 0.3 % (0-1); Eosinophil# 0.04 X10^3/uL; Eosinophils% 0.3 % (0-5); Hematocrit 46.7 % (37-47); Hemoglobin 15.1 g/dl (12.0-15.0); Lymphocyte # 4.85 X10^3/ul (4.0); Lymphocyte % 32.3 % (19-41); Mean Corp Hgb Conc 32.3 g/gl (32-36); Mean Corpuscular Hgb 28.5 pg (27.0-32.0); Mean Corpuscular Volume 88.1 fL (81-99); Monocyte# 1.59 X10^3/uL; Monocyte% 10.6 % (0-10); Neutrophil # 8.42 X10^3/uL (2.7-7.7); Platelet Count 546 K/mm3 (150-450); RBC Distribution Width CV 13.8 % (11.6-14.6); RBC Distribution Width SD 44.4 fl (35.1-43.9)
[2018-03-13 09:08] LABS: Differential Indicated SCAN CRITERIA MET; POSITIVE COUNT NO; POSITIVE DIFFERENTIAL YES; POSITIVE MORPHOLOGY NO
--- NOTE | 2018-03-13 10:26 | NURSING ---
PT DISCHARGED THIS AM AROUND 1000. OFFERED BLOOD GLUCOSE MONITORING TEACHING PER IPAD AND PT DECLINED. 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 INSULIN ADMINISTRATION TEACHING GIVEN. PT GAVE RETURN DEMONSTRATION OF AM INSULIN ADMINISTRATION. GLUCOMETER SUPPLIES AND PREDNISONE SCRIPT GIVEN TO PT. NEEDLES AND OTHER MEDICATION SCRIPTS, INCLUDING INSULIN BASAGLAR, SENT ELECTRONICALLY TO [facility] IN [place]. PT UNDERSTOOD ALL TEACHING AND DISCHARGE INSTRUCTIONS.
--- NOTE | 2018-03-13 12:38 | PCM.DC.SUM ---
Discharge Date and Diagnosis Date of Admission: 03/10/18 Date of Discharge: 03/13/18 - Primary Discharge Diagnosis #1 acute COPD exacerbation. #2 acute hypoxic respiratory failure, improved. #3 uncontrolled type 2 diabetes mellitus. - Secondary Discharge Diagnosis Chronic Problems (Last Reviewed 11/13/17 @ 09:36 by Danni Bahena NP-C) Morbid obesity with BMI of 40.0-44.9, adult (Chronic) Tobacco abuse (Chronic) Hypersomnia (Chronic) Benign essential hypertension (Chronic) Herniated thoracic disc without myelopathy (Chronic) Chronic back pain (Chronic) COPD (Chronic) Asthma (Chronic) GERD (gastroesophageal reflux disease) (Chronic) Obesity (BMI 30-39.9) (Chronic) Diabetes mellitus, type II (Chronic) Hospital Course and Treatment Imaging Results: Clinical Impression(s) from Imaging Studies Chest X-Ray 03/10/18 16:10 IMPRESSION: No acute thoracic pathology. Electronically Signed: Kwan Cristinaofeliadanna, at 16:40 EDT Tel , Service support , Dr. Dupont, pulmonology. Operations: None Procedures: None Summary of Care Provided: Patient seen and examined on the day of discharge and appeared to be stable to be discharged home. Symptoms continued to improve and she has been off oxygen. Her sugar has been fluctuating significantly. Her vital signs are stable and her pulse ox is 94% on room air. - Physical Exam General: Alert, Oriented x3, Cooperative, No apparent distress. HEENT: Atraumatic, PERRLA, EOMI. Neck: Supple, No JVD, Negative Carotid Bruits, Trachea Midline, Thyroid Normal. Lungs: Diminished breath sounds bilateral, faint end expiratory wheezes, otherwise clear. Cardiovascular: Regular rate, Regular Rhythm, Normal S1, Normal S2, PMI Normal. Abdomen: Bowel Sounds Present, Soft, Non Tender, Non-Distended, No Hepato-splenomegaly. Extremities: No clubbing, No cyanosis, No edema Skin: No rashes, No breakdown Neurological: Neuro grossly intact Vital Signs are stable. Hospital course: The patient is a 47 year old F admitted because of shortness of breath, wheezing and cough and she was diagnosed with acute COPD exacerbation complicated by acute hypoxic respiratory failure. She was treated with IV Zithromax, IV Solu-Medrol and bronchodilators. A chest x-ray showed no acute infiltrate, pneumonia ruled out. Her blood sugar has been highly elevated on IV Solu-Medrol. She does have a history of type 2 diabetes mellitus but she mentioned that her sugar goes high on the when she is on IV Solu-Medrol. Her hemoglobin A1c has been increasing over the last year or so. It has been around 6.5 and most recently, it was 8.5 on October,. Hemoglobin A1c done during this admission and it was 9.5. His sugar was more than 500 multiple times. There was no evidence of acute DKA. She was started on Levemir insulin twice daily as well as glipizide. With antibiotics, steroids and bronchodilators, her symptoms and of shortness of breath and wheezing improved. Initially, she required oxygen up to 2 L and we were able to wean his down to room air. On room air, her pulse ox remained 94% upon discharge. After IV Solu-Medrol stopped, her blood sugar continued to fluctuate significantly anywhere between 200s up to 400s. Dose of Levemir adjusted. Nutrition consulted and diabetic education provided. Patient discharged home in a stable medical condition, discharged on tapering course of prednisone, started on glargine insulin 14 units daily as well as glipizide 5 mg p.o. twice daily, prescription for glucometer, lancets and needles given, instructions on symptoms of hyperglycemia and hypoglycemia also provided, recommended to check blood sugar at least 3-4 times daily and to keep blood sugar log, recommended follow-up with PCP in 1 week and follow-up with pulmonology in 2 weeks. Discharge Activity: Return to Normal Activity Weight Bearing Status: Full weight bearing Call your doctor if you observe: Fever of 101 or Higher, Shortness of breath, Dizziness, Fainting spells, Chest pain, Increased palpitations (irregular heartbeat), Uncontrolled pain Home Medications: Medications to take at Discharge Amlodipine [Norvasc] 10 mg PO DAILY 08/13/15 Lisinopril [Zestril] 40 mg PO DAILY 02/11/16 Hydrochlorothiazide [Hctz] 25 mg PO DAILY 10/26/17 Oxygen, Home [Home Oxygen] 2 - 4 lpm NASAL PRN PRN 10/26/17 Albuterol Aerosols [Ventolin Aerosols] 2.5 mg INHALATION Q2H PRN PRN #1 box 10/29/17 Albuterol IH (ProAir) [Proair Hfa] 2 puff INHALATION Q4H PRN PRN #1 inhaler 10/29/17 epinephrine 1 mg/mL injection kit 1 mg IM Q10M PRN #1 ea 11/13/17 Budesonide/Formoterol 160/4.5 [Symbicort 160/4.5 Mcg Inhaler (SP)] 2 puff INHALATION BID 03/10/18 Ipratropium/Albuterol Sulfate [Duoneb] 3 ml INHALATION Q6H PRN PRN 03/10/18 Insulin Glargine,Hum.rec.anlog [Basaglar Kwikpen U-100] 14 unit SQ DAILY #2 insuln.pen 03/13/18 Nicotine [Nicotine Patch] 1 ea TD DAILY #30 patch.td24 03/13/18 Prednisone 10 mg PO DAILY #30 tab 03/13/18 glipiZIDE [Glucotrol] 5 mg PO BIDAC #30 tab 03/13/18 Following Prescrptions Were Given to Patient: glipiZIDE [Glucotrol] 5 mg PO BIDAC #30 tab Insulin Glargine,Hum.rec.anlog [Basaglar Kwikpen U-100] 14 unit SQ DAILY #2 insuln.pen Nicotine [Nicotine Patch] 1 ea TD DAILY #30 patch.td24 Prednisone 10 mg PO DAILY #30 tab Other Amb Orders: Glucometer Location: None Selected Primary Care Physician: Rita Melton MD [Primary Care Provider] - Please follow up with your Primary Care Physician in: 1 week. Please Follow Up With: Herminio Dupont MD When: please call his office. Please Follow Up With: Danni Bahena NP-C When: 2 weeks Patient Instructions: Using a Blood Sugar Log, Hyperglycemia (High Blood Sugar), Hypoglycemia (Low Blood Sugar), What Is Type 2 Diabetes?, How to Check Your Blood Sugar, Using Injected Insulin Disposition: Home Minutes spent on discharge:: 32 Patient Condition:: Stable Medical Necessity - Tobacco Use Smoking Status: Current every day smoker Tobacco Use: Cigarettes Meaningful Use Info Meaningful Use Diagnoses (Choose all that apply): None applicable Code Visit Inpatient E&M: 34006 Disch Hosp
--- NOTE | 2018-03-13 12:45 | DS.PCM_ITS ---
Discharge Date and Diagnosis Date of Admission: 03/10/18 Date of Discharge: 03/13/18 - Primary Discharge Diagnosis #1 acute COPD exacerbation. #2 acute hypoxic respiratory failure, improved. #3 uncontrolled type 2 diabetes mellitus. - Secondary Discharge Diagnosis Chronic Problems (Last Reviewed 11/13/17 @ 09:36 by Danni Bahena NP-C) Morbid obesity with BMI of 40.0-44.9, adult (Chronic) Tobacco abuse (Chronic) Hypersomnia (Chronic) Benign essential hypertension (Chronic) Herniated thoracic disc without myelopathy (Chronic) Chronic back pain (Chronic) COPD (Chronic) Asthma (Chronic) GERD (gastroesophageal reflux disease) (Chronic) Obesity (BMI 30-39.9) (Chronic) Diabetes mellitus, type II (Chronic) Hospital Course and Treatment Imaging Results: Clinical Impression(s) from Imaging Studies Chest X-Ray 03/10/18 16:10 IMPRESSION: No acute thoracic pathology. Electronically Signed: Kwan Cristinaofeliadanna, at 16:40 EDT Tel , Service support , Dr. Dupont, pulmonology. Operations: None Procedures: None Summary of Care Provided: Patient seen and examined on the day of discharge and appeared to be stable to be discharged home. Symptoms continued to improve and she has been off oxygen. Her sugar has been fluctuating significantly. Her vital signs are stable and her pulse ox is 94% on room air. - Physical Exam General: Alert, Oriented x3, Cooperative, No apparent distress. HEENT: Atraumatic, PERRLA, EOMI. Neck: Supple, No JVD, Negative Carotid Bruits, Trachea Midline, Thyroid Normal. Lungs: Diminished breath sounds bilateral, faint end expiratory wheezes, otherwise clear. Cardiovascular: Regular rate, Regular Rhythm, Normal S1, Normal S2, PMI Normal. Abdomen: Bowel Sounds Present, Soft, Non Tender, Non-Distended, No Hepato- splenomegaly. Extremities: No clubbing, No cyanosis, No edema Skin: No rashes, No breakdown Neurological: Neuro grossly intact Vital Signs are stable. Hospital course: The patient is a 47 year old F admitted because of shortness of breath, wheezing and cough and she was diagnosed with acute COPD exacerbation complicated by acute hypoxic respiratory failure. She was treated with IV Zithromax, IV Solu-Medrol and bronchodilators. A chest x-ray showed no acute infiltrate, pneumonia ruled out. Her blood sugar has been highly elevated on IV Solu-Medrol. She does have a history of type 2 diabetes mellitus but she mentioned that her sugar goes high on the when she is on IV Solu-Medrol. Her hemoglobin A1c has been increasing over the last year or so. It has been around 6.5 and most recently, it was 8.5 on October,. Hemoglobin A1c done during this admission and it was 9.5. His sugar was more than 500 multiple times. There was no evidence of acute DKA. She was started on Levemir insulin twice daily as well as glipizide. With antibiotics, steroids and bronchodilators, her symptoms and of shortness of breath and wheezing improved. Initially, she required oxygen up to 2 L and we were able to wean his down to room air. On room air, her pulse ox remained 94% upon discharge. After IV Solu-Medrol stopped, her blood sugar continued to fluctuate significantly anywhere between 200s up to 400s. Dose of Levemir adjusted. Nutrition consulted and diabetic education provided. Patient discharged home in a stable medical condition, discharged on tapering course of prednisone, started on glargine insulin 14 units daily as well as glipizide 5 mg p.o. twice daily, prescription for glucometer, lancets and needles given, instructions on symptoms of hyperglycemia and hypoglycemia also provided, recommended to check blood sugar at least 3-4 times daily and to keep blood sugar log, recommended follow-up with PCP in 1 week and follow-up with pulmonology in 2 weeks. Discharge Activity: Return to Normal Activity Weight Bearing Status: Full weight bearing Call your doctor if you observe: Fever of 101 or Higher, Shortness of breath, Dizziness, Fainting spells, Chest pain, Increased palpitations (irregular heartbeat), Uncontrolled pain Home Medications: Medications to take at Discharge Amlodipine [Norvasc] 10 mg PO DAILY 08/13/15 Lisinopril [Zestril] 40 mg PO DAILY 02/11/16 Hydrochlorothiazide [Hctz] 25 mg PO DAILY 10/26/17 Oxygen, Home [Home Oxygen] 2 - 4 lpm NASAL PRN PRN 10/26/17 Albuterol Aerosols [Ventolin Aerosols] 2.5 mg INHALATION Q2H PRN PRN #1 box 05/10 Albuterol IH (ProAir) [Proair Hfa] 2 puff INHALATION Q4H PRN PRN #1 inhaler 05/10 epinephrine 1 mg/mL injection kit 1 mg IM Q10M PRN #1 ea 11/13/17 Budesonide/Formoterol 160/4.5 [Symbicort 160/4.5 Mcg Inhaler (SP)] 2 puff INHALATION BID 03/10/18 Ipratropium/Albuterol Sulfate [Duoneb] 3 ml INHALATION Q6H PRN PRN 03/10/18 Insulin Glargine,Hum.rec.anlog [Basaglar Kwikpen U-100] 14 unit SQ DAILY #2 insuln.pen 03/13/18 Nicotine [Nicotine Patch] 1 ea TD DAILY #30 patch.td24 03/13/18 Prednisone 10 mg PO DAILY #30 tab 03/13/18 glipiZIDE [Glucotrol] 5 mg PO BIDAC #30 tab 03/13/18 Following Prescrptions Were Given to Patient: glipiZIDE [Glucotrol] 5 mg PO BIDAC #30 tab Insulin Glargine,Hum.rec.anlog [Basaglar Kwikpen U-100] 14 unit SQ DAILY #2 insuln.pen Nicotine [Nicotine Patch] 1 ea TD DAILY #30 patch.td24 Prednisone 10 mg PO DAILY #30 tab Other Amb Orders: Glucometer Location: None Selected Primary Care Physician: Rita Melton MD [Primary Care Provider] - Please follow up with your Primary Care Physician in: 1 week. Please Follow Up With: Herminio Dupont MD When: please call his office. Please Follow Up With: Danni Bahena NP-C When: 2 weeks Patient Instructions: Using a Blood Sugar Log, Hyperglycemia (High Blood Sugar) , Hypoglycemia (Low Blood Sugar), What Is Type 2 Diabetes?, How to Check Your Blood Sugar, Using Injected Insulin Disposition: Home Minutes spent on discharge:: 32 Patient Condition:: Stable Medical Necessity - Tobacco Use Smoking Status: Current every day smoker Tobacco Use: Cigarettes Meaningful Use Info Meaningful Use Diagnoses (Choose all that apply): None applicable Code Visit Inpatient E&M: 71254 Disch Hosp
[2018-03-16 09:59] LABS: Pathologist Review Reviewed
--- NOTE | 2018-03-18 15:02 | CASEMGMT ---
DOC BOLTON Discharge Follow-up Phone Call: NIA: Annamarie Strata: 3 Call Date: 03/18/18 Discharge Date: 03/13/18 Time of Call: 1503 Duration: 1 min Admitting Diagnosis: Acute COPD exacerbation RN HOANG attempted to complete follow-up phone call with patient. No answer and unable to leave message due to no mailbox setup. DOC BOLTON will attempt call at another time.
== END 2018-03-13 10:00 | disposition home or self-care (01) | DRG 88 ==
LOC: ED 16:53 → MS3 17:36
PROVIDERS: Internal Medicine; Admitting Provider Internal Medicine; Emergency Provider Emergency Medicine; Family Provider Internal Medicine; PCP Internal Medicine; Visit Provider Hospitalist
DX: J44.1 Chronic obstructive pulmonary disease with (acute) exacerbation (principal); J96.01 Acute respiratory failure with hypoxia; E11.65 Type 2 diabetes mellitus with hyperglycemia; F17.210 Nicotine dependence, cigarettes, uncomplicated; Z99.81 Dependence on supplemental oxygen; K21.9 Gastro-esophageal reflux disease without esophagitis; I10 Essential (primary) hypertension; E66.01 Morbid (severe) obesity due to excess calories; Z68.41 Body mass index [BMI] 40.0-44.9, adult; M54.9 Dorsalgia, unspecified; G89.29 Other chronic pain; Z79.51 Long term (current) use of inhaled steroids; Z79.899 Other long term (current) drug therapy; G47.10 Hypersomnia, unspecified; Z91.14 Patient's other noncompliance with medication regimen
CPT/HCPCS: 31720; 36415; 71045; 80048; 82947; 82962; 83036; 83605; 83880; 84484; 85025; 87040; 87070; 87077; 87205; 87633; 87804; 93005; 94640; 94667; 94668; 97802; 99218; 99285; 99406; J7030; A4216; G0378

== ENCOUNTER 2018-06-09 02:38 | Inpatient (IN) | payer MEDICAID, SELFPAY ==
[2018-06-09] VITALS (23 sets, daily range): BP systolic 151–212; BP diastolic 68–119; PULSE 90–110; RESP 16–26; TEMP 36.5–37.5; O2SAT 53–97; BMI 43.7; BMI 43.2
--- NOTE | 2018-06-09 02:39 | EKG12_ITS ---
Test Reason : Blood Pressure : / mmHG Vent. Rate : 098 BPM Atrial Rate : 098 BPM P-R Int : 138 ms QRS Dur : 072 ms QT Int : 344 ms P-R-T Axes : 065 038 044 degrees QTc Int : 439 ms Normal sinus rhythm Septal infarct , age undetermined Abnormal ECG Confirmed by JASON MARTINEZ, BATSHEVA ([id number]), scientific editor CELINE CORONEL ([id number]) on 06/10/2018 2:18:56 PM Referred By: HUA Confirmed By:BATSHEVA GOMEZ MD
--- NOTE | 2018-06-09 02:39 | CT_ITS ---
STUDY: CT ABDOMEN AND PELVIS WITH CONTRAST REASON FOR EXAM: Female, 47 years old. Shortness of breath and abdominal pain, diabetes, hypertension, controlled. History of COPD, emphysema, asthma RADIATION DOSAGE (If Supplied By Facility): CTDIvol = ( 21.40 ) mGy, DLP = ( 1926.38 ) mGycm TECHNIQUE: Transaxial 3.75 mm images were obtained from the dome of the diaphragm to the symphysis pubis with oral contrast. 100 ml of Isovue 370 contrast was administered. Sagittal and coronal images were reconstructed. There is obesity, the entirety of soft tissue is not imaged. Individualized dose optimization techniques were used for this CT. COMPARISON: CT abdomen pelvis 02/11/2016. CT chest 10/26/2017. FINDINGS: Left greater than right basilar bronchiectasis with wall thickening, minimal luminal opacification, areas of hyperinflation, stable 0.5 cm noncalcified nodule left lower lobe image 1 series 3 since 10/26/2017. The visualized portions of the heart are within normal limits. Normal liver. Normal gallbladder and extrahepatic biliary system. Normal spleen. Normal pancreas. There is a stable small, circumscribed, smooth, low attenuation left adrenal mass, consistent with an adrenal adenoma. Normal right adrenal gland. There is a stable subcentimeter right renal cyst. Normal left kidney. Normal visualized stomach. Normal small intestine. Normal colon. There is non-visualization of the appendix. Normal abdominal aorta. Normal inferior vena cava. Normal retroperitoneum. Normal urinary bladder. Uterus contains a stable intrauterine device, is heterogeneous in attenuation and is bulky in contour. There are stable bilateral fallopian tube clips. There are stable small inguinal and inguinal hernia containing adipose tissue. Fatty infiltration of the anterior subcutaneous abdominal wall. Obesity. Normal osseous structures. CT/Abdomen/Pelvis WITH Contrast IMPRESSION: There is no acute abdomen and pelvic pathology. Stable left adrenal nodule, subcentimeter right renal cyst, uterine fibroid, ventral hernia, obesity and noncalcified left lower lobe nodule. Comparison with previous CT chest 12/26/[address] Follow-Up of Small Pulmonary Nodules Nodule size is average of length and width. Nodule size. Low risk patient. Non smoking history. <4mm No follow-up needed (risk of malignancy <1%) 4-6mm Follow up CT at 12 months, if unchanged, no further imaging needed. 6-8mm Initial follow up at 6-12 month, then at 18-24 months if no changes. > 8mm Follow-up CT at 3, 9, and 24 months, dynamic contrast CT, PET and /or biopsy. Nodule size. High risk patients. Smoking history. <4mm Follow-up 12 months: if unchanged, no further follow-up. 4-6mm Initial follow-up at 6-12 months,then at 18-24 months if no change. 6-8mm Initial follow-up at 3-6months, then at 9-12 and 24 months if no change. >8mm Same as for low risk patient. [employer] STATEMENT Electronically Signed: Neris Phillips MD at 5:06 EDT , Service support ,
[2018-06-09] MEDS: Ondansetron 4 MG/2 ML Vial IV (02:49)
[2018-06-09] MEDS: HYDROmorphone 1 MG/ML Syringe IV (02:49)
[2018-06-09] MEDS: 0.9% Normal Saline 1,000 ML 150 ML IV (02:49)
[2018-06-09] MEDS: Ipratropium/Albuterol Sulfate 3 ML AMPUL.NEB INHALATION ×5 (02:50→23:30)
--- NOTE | 2018-06-09 02:50 | NURSING ---
duoneb given by resp.
[2018-06-09 03:09] LABS: Absolute Lymphocyte Count 1.72 X10^3/ul (0.83-4.51); Absolute Neutrophil Count 11.7 X10^3/uL (2.0-7.7); Basophil# 0.07 X10^3/uL; Basophil% 0.5 % (0-1); Eosinophil# 0.09 X10^3/uL; Eosinophils% 0.6 % (0-5); Hematocrit 45.9 % (37-47); Hemoglobin 14.5 g/dl (12.0-15.0); Lymphocyte # 1.72 X10^3/ul (4.0); Lymphocyte % 11.9 % (19-41); Mean Corp Hgb Conc 31.6 g/gl (32-36); Mean Corpuscular Hgb 28.3 pg (27.0-32.0); Mean Corpuscular Volume 89.6 fL (81-99); Mean Platelet Vol. 9.8 fl (6.2-12.0); Monocyte# 0.86 X10^3/uL; Monocyte% 5.9 % (0-10); Neutrophil # 11.69 X10^3/uL (2.7-7.7); Neutrophil % 80.9 % (47-70); Platelet Count 529 K/mm3 (150-450); RBC Distribution Width CV 14.4 % (11.6-14.6); Red Blood Count 5.12 M/mm3 (4.2-5.4); White Blood Count 14.5 K/mm3 (4.4-11.0)
[2018-06-09 03:10] LABS: POSITIVE COUNT NO; POSITIVE DIFFERENTIAL NO; POSITIVE MORPHOLOGY NO
[2018-06-09 03:19] LABS: D-Dimer Quantitative (DVT/PE) 0.47 FEU/ug/m (0.27-0.49)
[2018-06-09 03:23] LABS: ALB/GLOB Ratio 0.9 RATIO (0.9-2.4); AST(SGOT) 38 U/L (15-37); Alanine Aminotransfer ALT/SGPT 55 U/L (13-56); Albumin, Serum 3.5 g/dL (3.2-5.0); Alkaline Phosphatase 128 U/L (45-117); Anion Gap 8 (5-15); BUN 15 mg/dL (7-18); BUN/Creat Ratio 26.7 RATIO (10-20); Calcium,Total 8.8 mg/dL (8.5-10.1); Chloride 98 mmol/L (98-107); Creatinine, Serum 0.56 mg/dL (0.55-1.02); EST Glomerular Filtration Rate 123 mL/min (>60); Est Glom Filt Rate - Afr Amer 149 mL/min (>60); Estimated Creatinine Clearance 99.28 ml/min; Glucose 199 mg/dL (74-106); Lipase 91 U/L (73-393); Potassium 4.2 mmol/L (3.5-5.1); Protein, Total 7.5 g/dL (6.4-8.2); Sodium Level 138 mmol/L (136-145)
--- NOTE | 2018-06-09 03:25 | CT_ITS ---
STUDY: CTA CHEST REASON FOR EXAM: Female, 47 years old. Shortness of breath and abdominal pain, history of diabetes, hypertension, COPD, emphysema, asthma RADIATION DOSAGE (If Supplied By Facility): CTDIvol = ( 21.40 ) mGy, DLP = ( 1926.38 ) mGycm TECHNIQUE: The examination was performed with the intravenous administration of 100 ml of Isovue 370 contrast material. Post-processing of the angiographic images was performed, with multiplanar reformation and 3D reconstruction. Individualized dose optimization techniques were used for this CT. COMPARISON: CT chest 10/26/2017. CT abdomen pelvis 02/11/2016. FINDINGS: Normal enhancement of the main pulmonary artery and right and left pulmonary arteries. Limited enhancement of the bilateral peripheral pulmonary arteries. There is no demonstrated pulmonary embolism. Normal thoracic aorta and visualized great vessels. There is no demonstrated aortic dissection. Normal heart and pericardium. Normal mediastinum. Normal hilar regions. Normal visualized trachea and bronchi. The lungs are well expanded. Heterogeneous aeration with areas of hyperinflation consistent with air trapping in both lung parenchyma. There are bronchiectasis with bronchial wall thickening left greater than right lower lobe with some luminal opacification in the left lower lobe bronchi. Noncalcified nodule left lower lobe 0 point for 7 cm is stable since previous CT chest 10/26/2017. Image 94 series 2. Atelectatic changes in the lingula and right middle lobe. There is no focal parenchymal abnormality. Normal pleura. Normal chest wall structures. Mild degenerative changes. Stable nonspecific focal sclerosis T6 vertebral body. There is a stable small hiatal hernia. Stable low-attenuation nodule left adrenal gland, better delineated on CT abdomen. CT/CTA Chest W/WO Contrast IMPRESSION: No demonstrated pulmonary embolism, aneurysm, leak or arterial dissection on submitted images. Bilateral more pronounced in the left lower lobe air trapping with bronchiectasis, bronchial inflammation without significant change. Stable noncalcified nodule left lower lobe. Comparison with previous CT chest 2015 recommended, this examination has been requested. Other nonacute findings as outlined above. Electronically Signed: Neris Jacqueline, MD at 5:25 EDT , Service support , STUDY: CTA OF THE ABDOMINAL AORTA ADDENDUM: Previously seen noncalcified nodule in the left lower lobe of 0.47 cm is stable since 06/04/2015 felt to be a benign entity, no further follow-up is required. Electronically Signed: Neris Phillips MD at 5:44 EDT , Service support ,
[2018-06-09 03:37] LABS: Pregnancy, Serum, hCG Quali. NEGATIVE Negative (0-9 Nonpreg)
[2018-06-09 03:37] LABS: Bacteria 0 SEEN /hpf (None Seen); Mucous, Urine 0 SEEN /hpf (<or=2+); White Blood Cells 0 SEEN /hpf (0-5)
[2018-06-09 03:38] LABS: Color, Urine Yellow (Yellow); Glucose, Dipstick 250 mg/dl (Normal); Ketone-Dipstick 50 mg/dl (Negative); Leukocyte Esterase-Dipstick Negative /ul (Negative); Nitrite-Dipstick Negative (Negative); Occult Blood-Urine 25 /ul (Negative); Protein-Dipstick 30 mg/dl (Negative); Urine Bilirubin Dipstick Negative (Negative); Urine Clarity Clear (Clear); Urine Urobilinogen Normal (Normal)
[2018-06-09 04:06] LABS: Red Blood Cells-Urine 0-5 SEEN /hpf (0-5); Squamous Epithelial Cells - UA 10-25 SEEN /hpf (5-10)
[2018-06-09 04:06] LABS: Lactic Acid 1.1 mmol/L (0.4-2.0)
--- NOTE | 2018-06-09 05:47 | ED.DCSUM_ITS ---
- ER Visit Summary Date of Service: 06/09/18 Chief Complaint: Shortness of breath and abdominal pain] History of Present Illness: The patient is a 47 F [presents to the emergency department with complaint of shortness of breath over the last 4 days. Patient also states that at the same time she developed left upper quadrant abdominal discomfort. Patient's had just a mild cough mostly nonproductive. Patient does have a history of COPD but only wears oxygen at home as needed. Patient also with history of asthma. Patient denies any chest pain currently. Patient has had subjective fever at home. She denies recent travel or surgery.] Physical Examination: [HEENT-PERRLA, EOMI. Cranial nerves II through XII grossly intact. TMs clear. Mucous membranes moist. No adenopathy. Cardiovascular-regular rate and rhythm without murmur or ectopy Lungs-diminished breath sounds bilaterally with expiratory wheezes throughout. Mild tachypnea. No accessory muscle use or retractions. Abdomen-normoactive bowel sounds, soft. Patient has diffuse tenderness over the epigastric and left upper quadrant. No rebound, rigidity, or perineal signs noted. Extremities-intact ?4, normal range of motion, normal pulses, atraumatic] Test Results: [EKG obtained on arrival showed a sinus rhythm with a ventricular rate of 98 bpm with old septal wall infarct. CBC with differential showed a white count of 14.5, hemoglobin 14.5, hematocrit 46, platelets 529. Chemistries unremarkable. Troponin was 0.089. D-dimer was 0.47. Lactate was 1.1. CTA of the chest obtained was negative for PE or dissection did have some bronchiectasis. CT scan of the abdomen pelvis showed nothing acute.] Emergency Department Course and Treatment: [Patient was given DuoNeb aerosol and will be started on Solu-Medrol at 25 mill grams IV. Patient was started on Rocephin and Zithromax.] Treatment Plan: [Patient continues to wheeze and will be admitted for COPD exacerbation with hypoxemia] Disposition: [Admit] Impression: [COPD exacerbation with hypoxemia Elevated troponin Abdominal pain-etiology uncertain] This note was generated with [employer] dictation software. It may contain incorrect words, spelling, and punctuation that were not noted in review of the chart prior to signing ED Disposition - Plan for ED Patient: Chief Complaint: Shortness of Breath Referrals: Rita Melton MD [Primary Care Provider] -
[2018-06-09] MEDS: Ceftriaxone 1 GM/50 ML BAG IV (05:56)
[2018-06-09] MEDS: MethylPREDNISolone 125 MG/2 ML Vial IV (06:30)
--- NOTE | 2018-06-09 06:35 | PCM.HP.STD ---
Problem List (1) Hypertension Status: Chronic (2) COPD with acute exacerbation Status: Acute (3) Elevated troponin Status: Acute History of Present Illness Date of Admission: 06/09/18 The patient is a 47 year old F discharged from hospital in February of this year for COPD exacerbation and with a significant history of morbid obesity, COPD, supplemental as needed oxygen use,asthma,hypertension and diabetes mellitus type 2 now with 4 days of worsening shortness of breath and left upper quadrant abdominal pain pain.. Associated with her symptoms is a productive cough (mir color). The patient stated that the nature of his cough has changed. Patient stated that she had a whooping type of cough which later became squeaky. She has required frequent doses of her as needed rescue inhaler. Also she has been using her as needed oxygen more frequently. Associated with her symptoms is left upper quadrant pain that increases with coughing and and with exertion. At the ED a CT of her abdomen and chest was unremarkable for any acute pathology. Past Medical History Past Medical History (Chronic Problems): Chronic Problems (Last Reviewed 11/13/17 @ 09:36 by DILMA Ferreira) Morbid obesity with BMI of 40.0-44.9, adult (Chronic) Hypertension (Chronic) Tobacco abuse (Chronic) Hypersomnia (Chronic) Benign essential hypertension (Chronic) Herniated thoracic disc without myelopathy (Chronic) Chronic back pain (Chronic) COPD (Chronic) Asthma (Chronic) GERD (gastroesophageal reflux disease) (Chronic) Obesity (BMI 30-39.9) (Chronic) Diabetes mellitus, type II (Chronic) Medical History: Medical History (Last Reviewed 11/13/17 @ 09:36 by DILMA Ferreira) COPD with acute exacerbation (Acute) J44.1 Hypertensive urgency (Ruled-out) I16.0 Otitis media (Ruled-out) H66.90 Benign essential hypertension (Chronic) I10 Herniated thoracic disc without myelopathy (Chronic) M51.24 Chronic back pain (Chronic) M54.9, G89.29 COPD (Chronic) Asthma (Chronic) J45.909 GERD (gastroesophageal reflux disease) (Chronic) K21.9 Obesity (BMI 30-39.9) (Chronic) E66.9 Diabetes mellitus, type II (Chronic) E11.9 Allergies aspirin Allergy (Verified 06/09/18 02:41) Anaphylaxis cyclobenzaprine HCl [From Flexeril] Allergy (Verified 06/09/18 02:41) Rash levofloxacin [From Levaquin] Allergy (Verified 06/09/18 02:41) Rash naproxen [From Naprosyn] Allergy (Verified 06/09/18 02:41) Anaphylaxis bupropion HCl [From Wellbutrin] Adverse Reaction (Verified 06/09/18 02:41) nightmares NIGHTMARES doxycycline Adverse Reaction (Verified 06/09/18 02:41) Diarrhea Home Medications: Ambulatory Orders Medication Instructions Recorded Amlodipine [Norvasc] 10 mg PO DAILY 08/13/15 Lisinopril [Zestril] 40 mg PO DAILY 02/11/16 Hydrochlorothiazide [Hctz] 25 mg PO DAILY 10/26/17 Oxygen, Home [Home Oxygen] 2 - 4 lpm NASAL PRN PRN 10/26/17 Albuterol Aerosols [Ventolin 2.5 mg INHALATION Q2H PRN PRN #1 10/29/17 Aerosols] box Albuterol IH (ProAir) [Proair Hfa] 2 puff INHALATION Q4H PRN PRN #1 10/29/17 inhaler epinephrine 1 mg/mL injection kit 1 mg IM Q10M PRN #1 ea 11/13/17 Budesonide/Formoterol 160/4.5 2 puff INHALATION BID 03/10/18 [Symbicort 160/4.5 Mcg Inhaler (SP)] Ipratropium/Albuterol Sulfate 3 ml INHALATION 4X/DAY 03/10/18 [Duoneb] Insulin Glargine,Hum.rec.anlog 14 unit SQ DAILY #2 insuln.pen 03/13/18 [Basaglar Kwikpen U-100] Omeprazole [Omeprazole] 1 tab PO DAILY 06/09/18 Surgical History: Surgical History (Last Reviewed 06/09/18 @ 06:42 by Josef Suazo MD) History of tubal ligation (Resolved) Z98.51 History of section (Resolved) Z98.891 Surgical History: - - x 2, BLTL, chest tube 3 y/o for spontaneous pneumothorax. Psychiatric History: Anxiety [employer]ENTICE History: - - She has had a tubal ligation. She is para 2 4 with 2 abortions. Status post IUD insertion Smoking Status: Former smoker Tobacco Use: Non-smoker Alcohol: None Drugs: None - *Family History Sibling Family History: Family History (Last Reviewed 06/09/18 @ 06:42 by Josef Suazo MD) Mother Breast cancer Cancer Father COPD (chronic obstructive pulmonary disease) Hypertension Heart disease Cancer History Items: Pulmonary Disease - age 34 secondary to pulmonary hypertension Maternal Family History: Family History (Last Reviewed 06/09/18 @ 06:42 by Josef Suazo MD) Mother Breast cancer Cancer Father COPD (chronic obstructive pulmonary disease) Hypertension Heart disease Cancer History Items: Cancer - alive age 63, breast and skin Paternal Family History: Family History (Last Reviewed 06/09/18 @ 06:42 by Josef Suazo MD) Mother Breast cancer Cancer Father COPD (chronic obstructive pulmonary disease) Hypertension Heart disease Cancer History Items: Cancer - Skin cancer, COPD - alive age 65, Heart Disease, Hypertension, No pertinent history Review of Systems Constitutional: Reports: - - Headache. Eyes: Denies: Blurred vision, Pain HEENT: Denies: Head Aches, Sinus Congestion, Sinus Drainage Cardiovascular: Reports: - - Presyncope. Denies: Chest Pain, Palpitations Respiratory: Reports: Cough, Shortness of breath at rest, Shortness of breath upon exertion, Wheezing Gastrointestinal: Reports: Abdominal Pain - Left upper quadrant Genitourinary: Denies: Dysuria Musculoskeletal: Denies: Joint Pain, Joint Tenderness Skin: Denies: Rash, Wounds Neurological: Denies: Numbness, Tingling, Focal weakness Psychiatric: Denies: Anxiety, Depression, Homicidal Ideations, Suicidal Ideations Hematologic/ Lymphatic: Denies: Easy Bruising, Easy Bleeding VTE Information - Inpt Only VTE Present on Admission: No VTE Mechan Device Prophylaxis: None VTE Pharm Prophylaxis ordered?: Yes Patient Problems: Active and Suspected Problems (Last Reviewed 11/13/17 @ 09:36 by OBDULIA FerreiraC) Elevated troponin (Acute) - Physical Exam General: Alert, Oriented x3, Cooperative HEENT: Atraumatic, PERRLA, EOMI, Normocephalic Neck: Supple, No JVD, Negative Carotid Bruits Lungs: Diminished, Tachypneic, Wheezes Cardiovascular: Tachycardic Abdomen: Bowel Sounds Present, Tender - Upper quadrants Extremities: No edema, Capillary Refill Less than 3 Seconds Skin: No rashes, No breakdown Musculoskeletal: No Tenderness to Palpation of Joints or Extremities Neurological: Cranial nerves II-XII grossly intact Psych/Mental Status: Anxious Vital Signs Temp Pulse Resp BP Pulse Ox 99.5 F H 100 23 H 174/95 H 97 06/09/18 02:38 06/09/18 05:54 06/09/18 05:54 06/09/18 05:54 06/09/18 05:54 Oxygen Flow Rate (L/min) 4 Oxygen Delivery Method Nasal Cannula Weight: 108.5 kg Body Mass Index (BMI) 43.7 Laboratory Tests Past 24 Hrs 06/09/18 06/09/18 06/09/18 02:50 02:50 02:50 WBC 14.5 H RBC 5.12 Hgb 14.5 Hct 45.9 MCV 89.6 MCH 28.3 MCHC 31.6 L RDW 14.4 RDW Differential 47.0 H Plt Count 529 H MPV 9.8 Immature Gran % (Auto) 0.200 Neut % (Auto) 80.9 H Lymph % (Auto) 11.9 L [place] % (Auto) 5.9 Eos % (Auto) 0.6 Baso % (Auto) 0.5 Absolute Neuts (auto) 11.7 H Absolute Lymphs (auto) 1.72 Total Counted Not Reportable D-Dimer Quant (PE/DVT) 0.47 Sodium 138 Potassium 4.2 Chloride 98 Carbon Dioxide 32.0 Anion Gap 8 BUN 15 Creatinine 0.56 Estim Creat Clear Calc 99.28 Est GFR (MDRD) Af Amer 149 Est GFR (MDRD) Non-Af 123 BUN/Creatinine Ratio 26.7 H Glucose 199 H Lactic Acid Calcium 8.8 Total Bilirubin 0.20 AST 38 H ALT 55 Alkaline Phosphatase 128 H Troponin I 0.089 H Total Protein 7.5 Albumin 3.5 Globulin 4.0 Albumin/Globulin Ratio 0.9 Lipase 91 Serum , Qual Urine Color Urine Clarity Urine pH Ur Specific [place] Urine Protein Urine Glucose (UA) Urine Ketones Urine Occult Blood Urine Nitrite Urine Bilirubin Urine Urobilinogen Ur Leukocyte Esterase Urine RBC Urine WBC Ur Squamous Epith Cells Urine Bacteria Urine Mucus 06/09/18 06/09/18 06/09/18 02:50 02:50 03:30 WBC RBC Hgb Hct MCV MCH MCHC RDW RDW Differential Plt Count MPV Immature Gran % (Auto) Neut % (Auto) Lymph % (Auto) [place] % (Auto) Eos % (Auto) Baso % (Auto) Absolute Neuts (auto) Absolute Lymphs (auto) Total Counted D-Dimer Quant (PE/DVT) Sodium Potassium Chloride Carbon Dioxide Anion Gap BUN Creatinine Estim Creat Clear Calc Est GFR (MDRD) Af Amer Est GFR (MDRD) Non-Af BUN/Creatinine Ratio Glucose Lactic Acid 1.1 Calcium Total Bilirubin AST ALT Alkaline Phosphatase Troponin I Total Protein Albumin Globulin Albumin/Globulin Ratio Lipase Serum , Qual NEGATIVE Urine Color Yellow Urine Clarity Clear Urine pH 6.0 Ur Specific [place] 1.020 Urine Protein 30 H Urine Glucose (UA) 250 H Urine Ketones 50 H Urine Occult Blood 25 H Urine Nitrite Negative Urine Bilirubin Negative Urine Urobilinogen Normal Ur Leukocyte Esterase Negative Urine RBC 0-5 SEEN Urine WBC 0 SEEN Ur Squamous Epith Cells 10-25 SEEN Urine Bacteria 0 SEEN Urine Mucus 0 SEEN Assessment/Plan All Active Problems (Last Reviewed 11/13/17 @ 09:36 by Danni Bahena, CHIQUIS-C) Acute respiratory failure with hypoxia (Acute) Elevated troponin (Acute) History of tubal ligation (Resolved) History of section (Resolved) COPD with acute exacerbation (Acute) Hypertensive urgency (Ruled-out) Otitis media (Ruled-out) Tobacco abuse (Resolved) The patient is a 47 year old F discharged from hospital in February of this year for COPD exacerbation and with a significant history of morbid obesity, COPD, supplemental as needed oxygen use,asthma,hypertension and diabetes mellitus type 2 now with 4 days of worsening shortness of breath and left upper quadrant abdominal pain pain likely representing COPD exacerbation and musculoskeletal injury of the abdomen due to excessive cough. Acute COPD exacerbation Scheduled DuoNeb Albuterol as needed Solu-Medrol 125 mg in the ED Solu-Medrol 40 mg every 8 hours ordered Patient received Rocephin and azithromycin IV at the ED. Azithromycin IV continued. Symbicort continued Chest physiotherapy Sputum culture ordered Blood culture ?2 are pending Oxygen as needed Abdominal Pain CT of the abdomen did not show acute pathology Likely sequela of excessive coughing As needed abdominal acetaminophen and oxycodone ordered. Prilosec continued Elevated troponin Likely demand ischemia Serial troponin ordered. Hypertension Norvasc, lisinopril and hydrochlorothiazide. Hydralazine as needed ordered. Diabetes mellitus Lantus 14 units continued Correction scale insulin ordered. DVT prophylaxis with subcutaneous Lovenox. Code Visit Inpatient E&M: 18854 Init Hosp L2
--- NOTE | 2018-06-09 06:36 | NURSING ---
Called [facility] charge nursegrupo to send patient to the floor.
[2018-06-09] MEDS: 0.9% Normal Saline 1,000 ML 75 ML IV (08:19)
[2018-06-09] MEDS: Insulin Lispro 100 UNIT/ML INSULN.PEN SC ×4 (08:20→23:51)
[2018-06-09 08:21] LABS: Bedside Glucose 194 mg/dL (70-110)
[2018-06-09] MEDS: oxyCODONE 5 MG Tablet PO ×2 (08:45→14:17)
[2018-06-09 09:51] LABS: Allen Test POS; Base Excess 5 mmol/L (-2 to +2); Bicarbonate 31.6 mmol/L (22-26); Blood Gas Specimen Type ART; O2 Delivery Device Nasal Can; PO2 62 mmHG (75-100); SITE R Radial; SO2 87 % (95-99); Time Given 938; Total Carbon Dioxide 34 mmol/L; pCO2 66.8 mmHg (35-45); pH 7.28 (7.35-7.45)
[2018-06-09] MEDS: Glucerna Shake 120 ML LIQUID PO ×3 (10:30→17:05)
[2018-06-09] MEDS: amLODIPine 10 MG Tablet PO (10:31)
[2018-06-09] MEDS: Pantoprazole Sodium 20 MG Tablet PO (10:31)
[2018-06-09] MEDS: hydroCHLOROthiazide 25 MG Tablet PO (10:31)
[2018-06-09] MEDS: Lisinopril 40 MG Tablet PO (10:31)
[2018-06-09] MEDS: Enoxaparin 40 MG/0.4 ML Syringe SC (10:32)
[2018-06-09] MEDS: CLARIFY ORDER NOTE (10:37)
[2018-06-09 12:35] LABS: Bedside Glucose 307 mg/dL (70-110)
[2018-06-09] MEDS: 0.9% NaCl Peripheral Flush Adult/Peds IV ×2 (14:17→23:36)
[2018-06-09 17:11] LABS: Bedside Glucose 325 mg/dL (70-110)
--- NOTE | 2018-06-09 17:19 | PCM.PN.BLA ---
Progress Note Patient is a 47-year-old lady with history of COPD admitted with progressive shortness of breath. Patient initial assessment, the history and physical diagnostic workup and management orders reviewed will follow. Patient was noted to have elevated troponin with check a nuclear stress test in a.m. to rule out myocardial ischemia.
[2018-06-10] VITALS (8 sets, daily range): BP systolic 157–167; BP diastolic 80–97; PULSE 91–107; RESP 18; TEMP 36.6–36.7; O2SAT 85–100
[2018-06-10 00:21] LABS: Bedside Glucose 297 mg/dL (70-110)
[2018-06-10] MEDS: Ipratropium/Albuterol Sulfate 3 ML AMPUL.NEB INHALATION ×2 (03:34→11:38)
[2018-06-10 05:33] LABS: Hematocrit 47.8 % (37-47); Hemoglobin 14.6 g/dl (12.0-15.0); Mean Corp Hgb Conc 30.5 g/gl (32-36); Mean Corpuscular Hgb 27.9 pg (27.0-32.0); Mean Corpuscular Volume 91.4 fL (81-99); Mean Platelet Vol. 9.9 fl (6.2-12.0); Platelet Count 577 K/mm3 (150-450); RBC Distribution Width CV 14.2 % (11.6-14.6); Red Blood Count 5.23 M/mm3 (4.2-5.4); White Blood Count 12.2 K/mm3 (4.4-11.0)
[2018-06-10 05:37] LABS: Anion Gap 4 (5-15); BUN 16 mg/dL (7-18); BUN/Creat Ratio 21.9 RATIO (10-20); Calcium,Total 9.4 mg/dL (8.5-10.1); Chloride 100 mmol/L (98-107); Creatinine, Serum 0.73 mg/dL (0.55-1.02); EST Glomerular Filtration Rate 91 mL/min (>60); Est Glom Filt Rate - Afr Amer 110 mL/min (>60); Estimated Creatinine Clearance 76.16 ml/min; Glucose 292 mg/dL (74-106); Magnesium 2.4 mg/dL (1.6-2.6); Potassium 4.8 mmol/L (3.5-5.1); Sodium Level 143 mmol/L (136-145)
[2018-06-10] MEDS: Lisinopril 40 MG Tablet PO (05:55)
--- NOTE | 2018-06-10 05:55 | EKG12_ITS ---
Test Reason : AM EKG Blood Pressure : / mmHG Vent. Rate : 093 BPM Atrial Rate : 093 BPM P-R Int : 134 ms QRS Dur : 084 ms QT Int : 340 ms P-R-T Axes : 065 073 040 degrees QTc Int : 422 ms Normal sinus rhythm with sinus arrhythmia Normal ECG When compared with ECG of 09-JUN-2018 02:51, MANUAL COMPARISON REQUIRED, DATA IS UNCONFIRMED Confirmed by JASON MARTINEZ, BATSHEVA ([id number]), fashion editor CELINE CORONEL ([id number]) on 06/12/2018 1:51:27 PM Referred By: MANJIT Confirmed By:BATSHEVA GOMEZ MD
[2018-06-10] MEDS: 0.9% NaCl Peripheral Flush Adult/Peds IV ×4 (05:58→10:24)
[2018-06-10 06:02] LABS: International Normalized Ratio 1.1; Prothrombin Time (Protime)PT. 13.8 SECONDS (11.7-14.9)
[2018-06-10 06:03] LABS: Partial Thromboplast Time 28.1 Seconds (24.1-36.2)
[2018-06-10 06:11] LABS: Bedside Glucose 295 mg/dL (70-110)
[2018-06-10 06:13] LABS: Scan Indicated on CBC? Y/N NO
[2018-06-10] MEDS: Insulin Lispro 100 UNIT/ML INSULN.PEN SC ×2 (08:51→11:52)
--- NOTE | 2018-06-10 09:00 | STRESSREP_ITS ---
Stress Test Report Pharmacologic myocardial perfusion stress test. 47-year-old lady with a history of chest pain. Stress protocol: Resting EKG demonstrates normal sinus rhythm with a rate of 93 bpm normal intervals and noted resting blood pressure is 170 112 mmHg. 0.4 mg of regadenoson was infused per usual protocol followed by rapid intravenous saline flush injection continuous EKG monitoring was performed. The maximum heart rate attained was 113 bpm which was 64% of maximum predicted heart rate the maximum workload attained was 1 metabolic equivalent. There were no ST or T- wave changes noted to suggest abnormal flow reserve. Myocardial perfusion protocol. 14.6 mCi of technetium 99m sestamibi was injected at rest. 0.4 mg regadenoson was infused per usual protocol. Peak infusion 44.8 mCi of technetium 99m sestamibi was injected stress images were obtained stress and rest images were reconstructed and compared in the short axis vertical long and horizontal long axis. Gated images were also obtained. Perfusion SPECT analysis: Review of the stress images demonstrate normal uptake of tracer noted in all areas of the myocardium. The resting images similarly demonstrate normal uptake of tracer noted in all areas of the myocardium. No areas of reversibility are noted suggest ischemia and no previous infarct is noted. Gated SPECT analysis: The gated ejection fraction is 75%. Conclusion: Normal pharmacologic myocardial perfusion stress test. Preserved ejection fraction.
[2018-06-10] MEDS: Pantoprazole Sodium 20 MG Tablet PO (09:01)
[2018-06-10] MEDS: amLODIPine 10 MG Tablet PO (09:01)
[2018-06-10] MEDS: hydroCHLOROthiazide 25 MG Tablet PO (09:01)
[2018-06-10] MEDS: oxyCODONE 5 MG Tablet PO (09:21)
--- NOTE | 2018-06-10 10:13 | PCM.DC ---
- Discharge Diagnoses Current Active Problems: Current Active and Chronic Problems (Last Reviewed 11/13/17 @ 09:36 by DILMA Ferreira) Elevated troponin (Acute) You will use the following diet at home:: No restrictions Your food should be the consistency of: Regular Discharge Activity: May not drive while taking narcotic pain medications. Allergies/Adverse Reactions: Allergies aspirin Allergy (Verified 06/09/18 02:41) Anaphylaxis cyclobenzaprine HCl [From Flexeril] Allergy (Verified 06/09/18 02:41) Rash levofloxacin [From Levaquin] Allergy (Verified 06/09/18 02:41) Rash naproxen [From Naprosyn] Allergy (Verified 06/09/18 02:41) Anaphylaxis bupropion HCl [From Wellbutrin] Adverse Reaction (Verified 06/09/18 02:41) nightmares NIGHTMARES doxycycline Adverse Reaction (Verified 06/09/18 02:41) Diarrhea Medications to take at Discharge Amlodipine [Norvasc] 10 mg PO DAILY 08/13/15 Lisinopril [Zestril] 40 mg PO DAILY 02/11/16 Hydrochlorothiazide [Hctz] 25 mg PO DAILY 10/26/17 Oxygen, Home [Home Oxygen] 2 - 4 lpm NASAL PRN PRN 10/26/17 Albuterol Aerosols [Ventolin Aerosols] 2.5 mg INHALATION Q2H PRN PRN #1 box 10/29/17 Albuterol IH (ProAir) [Proair Hfa] 2 puff INHALATION Q4H PRN PRN #1 inhaler 10/29/17 epinephrine 1 mg/mL injection kit 1 mg IM Q10M PRN #1 ea 11/13/17 Budesonide/Formoterol 160/4.5 [Symbicort 160/4.5 Mcg Inhaler (SP)] 2 puff INHALATION BID 03/10/18 Ipratropium/Albuterol Sulfate [Duoneb] 3 ml INHALATION 4X/DAY 03/10/18 Insulin Glargine,Hum.rec.anlog [Basaglar Kwikpen U-100] 14 unit SQ DAILY #2 insuln.pen 03/13/18 Omeprazole 1 tab PO DAILY 06/09/18 Azithromycin [Zithromax] 500 mg PO DAILY #3 tab 06/10/18 Guaifenesin [Mucinex] 1,200 mg PO BID #14 tab 06/10/18 Oxycodone [Oxyir] 5 mg PO Q4H PRN PRN 5 Days #14 tablet 06/10/18 Prednisone 40 mg PO DAILY #5 tab 06/10/18 The following prescriptions were given: Azithromycin [Zithromax] 500 mg PO DAILY #3 tab Guaifenesin [Mucinex] 1,200 mg PO BID #14 tab Oxycodone [Oxyir] 5 mg PO Q4H PRN PRN 5 Days #14 tablet PRN Reason: Mod-Severe Pain (-09/02) Prednisone 40 mg PO DAILY #5 tab Primary Care Physician: Rita Melton MD [Primary Care Provider] - Please follow up with your Primary Care Physician in: in 5-7 days Test Results: Test results from this visit will be discussed in further detail at your follow-up appointment, if applicable. Proposed Discharge Date: 06/10/18
--- NOTE | 2018-06-10 10:17 | PCM.DC.SUM ---
Discharge Date and Diagnosis - Problem List Patient Problems: Active and Suspected Problems (Last Reviewed 11/13/17 @ 09:36 by DILMA Ferreira) Elevated troponin (Acute) Date of Admission: 06/09/18 Date of Discharge: 06/10/18 - Primary Discharge Diagnosis Active and Suspected Problems (Last Reviewed 11/13/17 @ 09:36 by DILMA Ferreira) Elevated troponin (Acute) - Secondary Discharge Diagnosis Chronic Problems (Last Reviewed 11/13/17 @ 09:36 by DILMA Ferreira) Morbid obesity with BMI of 40.0-44.9, adult (Chronic) Hypertension (Chronic) Tobacco abuse (Chronic) Hypersomnia (Chronic) Benign essential hypertension (Chronic) Herniated thoracic disc without myelopathy (Chronic) Chronic back pain (Chronic) COPD (Chronic) Asthma (Chronic) GERD (gastroesophageal reflux disease) (Chronic) Obesity (BMI 30-39.9) (Chronic) Diabetes mellitus, type II (Chronic) Hospital Course and Treatment Imaging Results: Clinical Impression(s) from Imaging Studies Abdomen/Pelvis CT 06/09/18 02:39 IMPRESSION: There is no acute abdomen and pelvic pathology. Stable left adrenal nodule, subcentimeter right renal cyst, uterine fibroid, ventral hernia, obesity and noncalcified left lower lobe nodule. Comparison with previous CT chest 12/26/[address] Follow-Up of Small Pulmonary Nodules Nodule size is average of length and width. Nodule size. Low risk patient. Non smoking history. <4mm No follow-up needed (risk of malignancy <1%) 4-6mm Follow up CT at 12 months, if unchanged, no further imaging needed. 6-8mm Initial follow up at 6-12 month, then at 18-24 months if no changes. > 8mm Follow-up CT at 3, 9, and 24 months, dynamic contrast CT, PET and /or biopsy. Nodule size. High risk patients. Smoking history. <4mm Follow-up 12 months: if unchanged, no further follow-up. 4-6mm Initial follow-up at 6-12 months,then at 18-24 months if no change. 6-8mm Initial follow-up at 3-6months, then at 9-12 and 24 months if no change. >8mm Same as for low risk patient. [employer] STATEMENT Electronically Signed: Neris Phillips MD at 5:06 EDT , Service support , Chest CTA 06/09/18 03:25 IMPRESSION: No demonstrated pulmonary embolism, aneurysm, leak or arterial dissection on submitted images. Bilateral more pronounced in the left lower lobe air trapping with bronchiectasis, bronchial inflammation without significant change. Stable noncalcified nodule left lower lobe. Comparison with previous CT chest 2015 recommended, this examination has been requested. Other nonacute findings as outlined above. Electronically Signed: Neris Phillips MD at 5:25 EDT , Service support , STUDY: CTA OF THE ABDOMINAL AORTA ADDENDUM: Previously seen noncalcified nodule in the left lower lobe of 0.47 cm is stable since 06/04/2015 felt to be a benign entity, no further follow-up is required. Electronically Signed: Neris Phillips MD at 5:44 EDT , Service support , ADDENDUM: 06/09/18 0551 IMPRESSION: No demonstrated pulmonary embolism, aneurysm, leak or arterial dissection on submitted images. Bilateral more pronounced in the left lower lobe air trapping with bronchiectasis, bronchial inflammation without significant change. Stable noncalcified nodule left lower lobe. This is felt to be a benign entity. Other nonacute findings as outlined above. Electronically Signed: Neris Phillips MD at 5:43 EDT , Service support , Operations: None Summary of Care Provided: Patient is a 44-year-old lady with history of COPD as well as asthma admitted with progressive shortness of breath and wheezing. 1. Acute COPD exacerbation admitted to a monitored bed was managed with inhaled bronchodilators, systemic and inhaled steroids. Patient did improve with therapy. 2. Elevated troponin secondary to demand ischemia from above. As part of her management patient underwent a nuclear stress test which is negative for stress-induced ischemia 3. Acute on chronic hypoxic respiratory failure patient is on home O2 intermittently patient was however assessed for home oxygen he did qualify she was discharged home with portability since she is mobile at home and in the community. 4. Hypertension-blood pressure controlled, home medications continued with dose adjustment as needed 5. Chronic back pain Continued with pain medications 6. DVT prophylaxis Lovenox Discharge Diet: No Restrictions Discharge Activity: May not drive while taking narcotic pain medications. Home Medications: Medications to take at Discharge RX: Amlodipine [Norvasc] 10 mg PO DAILY 08/13/15 RX: Lisinopril [Zestril] 40 mg PO DAILY 02/11/16 RX: Hydrochlorothiazide [Hctz] 25 mg PO DAILY 10/26/17 RX: Oxygen, Home [Home Oxygen] 2 - 4 lpm NASAL PRN PRN 10/26/17 RX: Albuterol Aerosols [Ventolin Aerosols] 2.5 mg INHALATION Q2H PRN PRN #1 box 10/29/17 RX: Albuterol IH (ProAir) [Proair Hfa] 2 puff INHALATION Q4H PRN PRN #1 inhaler 10/29/17 epinephrine 1 mg/mL injection kit 1 mg IM Q10M PRN #1 ea 11/13/17 RX: Budesonide/Formoterol 160/4.5 [Symbicort 160/4.5 Mcg Inhaler (SP)] 2 puff INHALATION BID 03/10/18 RX: Ipratropium/Albuterol Sulfate [Duoneb] 3 ml INHALATION 4X/DAY 03/10/18 RX: Insulin Glargine,Hum.rec.anlog [Basaglar Kwikpen U-100] 14 unit SQ DAILY #2 insuln.pen 03/13/18 RX: Omeprazole 1 tab PO DAILY 06/09/18 Azithromycin [Zithromax] 500 mg PO DAILY #3 tab 06/10/18 Guaifenesin [Mucinex] 1,200 mg PO BID #14 tab 06/10/18 RX: Oxycodone [Oxyir] 5 mg PO Q4H PRN PRN 5 Days #14 tablet 06/10/18 RX: Prednisone 40 mg PO DAILY #5 tab 06/10/18 Following Prescrptions Were Given to Patient: Azithromycin [Zithromax] 500 mg PO DAILY #3 tab Guaifenesin [Mucinex] 1,200 mg PO BID #14 tab RX: Oxycodone [Oxyir] 5 mg PO Q4H PRN PRN 5 Days #14 tablet PRN Reason: Mod-Severe Pain (-09/02) RX: Prednisone 40 mg PO DAILY #5 tab Primary Care Physician: Rita Melton MD [Primary Care Provider] - Please follow up with your Primary Care Physician in: in 5-7 days Disposition: Home Minutes spent on discharge:: 35 Patient Condition:: Stable Medical Necessity - Tobacco Use Smoking Status: Former smoker Tobacco Use: Non-smoker Meaningful Use Info Meaningful Use Diagnoses (Choose all that apply): None applicable Code Visit Inpatient E&M: 58792 Disch Hosp
--- NOTE | 2018-06-10 10:21 | DS.PCM_ITS ---
Discharge Date and Diagnosis - Problem List Patient Problems: Active and Suspected Problems (Last Reviewed 11/13/17 @ 09:36 by DILMA Ferreira) Elevated troponin (Acute) Date of Admission: 06/09/18 Date of Discharge: 06/10/18 - Primary Discharge Diagnosis Active and Suspected Problems (Last Reviewed 11/13/17 @ 09:36 by DILMA Ferreira) Elevated troponin (Acute) - Secondary Discharge Diagnosis Chronic Problems (Last Reviewed 11/13/17 @ 09:36 by DILMA Ferreira) Morbid obesity with BMI of 40.0-44.9, adult (Chronic) Hypertension (Chronic) Tobacco abuse (Chronic) Hypersomnia (Chronic) Benign essential hypertension (Chronic) Herniated thoracic disc without myelopathy (Chronic) Chronic back pain (Chronic) COPD (Chronic) Asthma (Chronic) GERD (gastroesophageal reflux disease) (Chronic) Obesity (BMI 30-39.9) (Chronic) Diabetes mellitus, type II (Chronic) Hospital Course and Treatment Imaging Results: Clinical Impression(s) from Imaging Studies Abdomen/Pelvis CT 06/09/18 02:39 IMPRESSION: There is no acute abdomen and pelvic pathology. Stable left adrenal nodule, subcentimeter right renal cyst, uterine fibroid, ventral hernia, obesity and noncalcified left lower lobe nodule. Comparison with previous CT chest 12/26/[address] Follow-Up of Small Pulmonary Nodules Nodule size is average of length and width. Nodule size. Low risk patient. Non smoking history. <4mm No follow-up needed (risk of malignancy <1%) 4-6mm Follow up CT at 12 months, if unchanged, no further imaging needed. 6-8mm Initial follow up at 6-12 month, then at 18-24 months if no changes. > 8mm Follow-up CT at 3, 9, and 24 months, dynamic contrast CT, PET and /or biopsy. Nodule size. High risk patients. Smoking history. <4mm Follow-up 12 months: if unchanged, no further follow-up. 4-6mm Initial follow-up at 6-12 months,then at 18-24 months if no change. 6-8mm Initial follow-up at 3-6months, then at 9-12 and 24 months if no change. >8mm Same as for low risk patient. [employer] STATEMENT Electronically Signed: Neris Phillips MD at 5:06 EDT , Service support , Chest CTA 06/09/18 03:25 IMPRESSION: No demonstrated pulmonary embolism, aneurysm, leak or arterial dissection on submitted images. Bilateral more pronounced in the left lower lobe air trapping with bronchiectasis, bronchial inflammation without significant change. Stable noncalcified nodule left lower lobe. Comparison with previous CT chest 2015 recommended, this examination has been requested. Other nonacute findings as outlined above. Electronically Signed: Neris Phillips MD at 5:25 EDT , Service support , STUDY: CTA OF THE ABDOMINAL AORTA ADDENDUM: Previously seen noncalcified nodule in the left lower lobe of 0.47 cm is stable since 06/04/2015 felt to be a benign entity, no further follow-up is required. Electronically Signed: Neris Phillips MD at 5:44 EDT , Service support , ADDENDUM: 06/09/18 0551 IMPRESSION: No demonstrated pulmonary embolism, aneurysm, leak or arterial dissection on submitted images. Bilateral more pronounced in the left lower lobe air trapping with bronchiectasis, bronchial inflammation without significant change. Stable noncalcified nodule left lower lobe. This is felt to be a benign entity. Other nonacute findings as outlined above. Electronically Signed: Neris Phillips MD at 5:43 EDT , Service support , Operations: None Summary of Care Provided: Patient is a 44-year-old lady with history of COPD as well as asthma admitted with progressive shortness of breath and wheezing. 1. Acute COPD exacerbation admitted to a monitored bed was managed with inhaled bronchodilators, systemic and inhaled steroids. Patient did improve with therapy. 2. Elevated troponin secondary to demand ischemia from above. As part of her management patient underwent a nuclear stress test which is negative for stress- induced ischemia 3. Acute on chronic hypoxic respiratory failure patient is on home O2 intermittently patient was however assessed for home oxygen he did qualify she was discharged home with portability since she is mobile at home and in the community. 4. Hypertension-blood pressure controlled, home medications continued with dose adjustment as needed 5. Chronic back pain Continued with pain medications 6. DVT prophylaxis Lovenox Discharge Diet: No Restrictions Discharge Activity: May not drive while taking narcotic pain medications. Home Medications: Medications to take at Discharge RX: Amlodipine [Norvasc] 10 mg PO DAILY 08/13/15 RX: Lisinopril [Zestril] 40 mg PO DAILY 02/11/16 RX: Hydrochlorothiazide [Hctz] 25 mg PO DAILY 10/26/17 RX: Oxygen, Home [Home Oxygen] 2 - 4 lpm NASAL PRN PRN 10/26/17 RX: Albuterol Aerosols [Ventolin Aerosols] 2.5 mg INHALATION Q2H PRN PRN #1 box 10/29/17 RX: Albuterol IH (ProAir) [Proair Hfa] 2 puff INHALATION Q4H PRN PRN #1 inhaler 10/29/17 epinephrine 1 mg/mL injection kit 1 mg IM Q10M PRN #1 ea 11/13/17 RX: Budesonide/Formoterol 160/4.5 [Symbicort 160/4.5 Mcg Inhaler (SP)] 2 puff INHALATION BID 03/10/18 RX: Ipratropium/Albuterol Sulfate [Duoneb] 3 ml INHALATION 4X/DAY 03/10/18 RX: Insulin Glargine,Hum.rec.anlog [Basaglar Kwikpen U-100] 14 unit SQ DAILY #2 insuln.pen 03/13/18 RX: Omeprazole 1 tab PO DAILY 06/09/18 Azithromycin [Zithromax] 500 mg PO DAILY #3 tab 06/10/18 Guaifenesin [Mucinex] 1,200 mg PO BID #14 tab 06/10/18 RX: Oxycodone [Oxyir] 5 mg PO Q4H PRN PRN 5 Days #14 tablet 06/10/18 RX: Prednisone 40 mg PO DAILY #5 tab 06/10/18 Following Prescrptions Were Given to Patient: Azithromycin [Zithromax] 500 mg PO DAILY #3 tab Guaifenesin [Mucinex] 1,200 mg PO BID #14 tab RX: Oxycodone [Oxyir] 5 mg PO Q4H PRN PRN 5 Days #14 tablet PRN Reason: Mod-Severe Pain (-09/02) RX: Prednisone 40 mg PO DAILY #5 tab Primary Care Physician: Rita Melton MD [Primary Care Provider] - Please follow up with your Primary Care Physician in: in 5-7 days Disposition: Home Minutes spent on discharge:: 35 Patient Condition:: Stable Medical Necessity - Tobacco Use Smoking Status: Former smoker Tobacco Use: Non-smoker Meaningful Use Info Meaningful Use Diagnoses (Choose all that apply): None applicable Code Visit Inpatient E&M: 94680 Disch Hosp
[2018-06-10] MEDS: Ketorolac 30 MG/ML Syringe IV (10:24)
--- NOTE | 2018-06-10 10:37 | CASEMGMT ---
Face to Face with patient for initial transition planning/care coordination assessment. RN HOANG introduced self and role at [facility], pt voices understanding and consents to assessment at this time. Pt is sitting up on side of bed in no distress at this time. Pt is A/O x4 at this time and answers all questions appropriately at this time. Care providers, pharmacy, and demographics verified. See attached link. Pt voices no further concerns/needs at this time. Advised pt to ask for CM if any further questions/concerns/needs arise, voices understanding. PLAN: Home w/ home oxygen. [place] DOC [facility]
--- NOTE | 2018-06-10 11:16 | CASEMGMT ---
Addendum entered by Cindi Clemente 06/10/18 13:21: Pt up to main desk and states that she is not waiting any longer for delivery of oxygen tank. Pt states her son is here to get her and she is leaving. Pt advised by multiple people that tank will be delivered any moment and that she needs the oxygen to get home and pt still insisted on leaving at this time. [facility] driver license reviewing officer up to floor with tank within a couple minutes of pt getting in elevator. [employer] Machine Operator advised that pt left prior to delivery and that they will need to deliver to house at this time, voices understanding. Glenroy ROACH CM Original Note: Addendum entered by Cindi Clemente 06/10/18 12:50: Received a call from Sammy at [facility] and he states that message has been sent to driver license reviewing officer and he will be en route with oxygen tank for the pt. Pt updated at this time, voices understanding. Pt is very anxious to leave at this time. Glenroy ROACH CM Original Note: Addendum entered by Cindi Clemente 06/10/18 12:08: Face to Face faxed to [facility] at this time. Glenroy ROACH CM Original Note: Per Dionne ROACH, pt qualifies for home oxygen at this time. Per pt, she already had prn home oxygen through [employer] but would like to switch to [facility] at this time. Call to [facility] and per Reshma, they are in network with [facility]. Referral faxed to [facility] at this time and will fax face to face once obtained. Glenroy ROACH CM
[2018-06-10 11:40] LABS: Bedside Glucose 482 mg/dL (70-110)
--- NOTE | 2018-06-10 13:27 | NURSING ---
Patient had an order for discharge but qualified for continuous home oxygen. We set up home oxygen and were waiting on the oxygen tank to arrive. The patient had gotten dressed and wanted to leave with her ride. Patient was aware her oxygen tank was on the way to be delivered to the hospital and should not be without but chose to leave regardless.
--- NOTE | 2018-06-11 16:03 | CASEMGMT ---
DOC BOLTON Discharge Follow-up Phone Call: NIA: 10 Strata: 3 Call Date: 06/11/18 Discharge Date: 06/10/18 Time of Call: 1400 Duration: 1 min Admitting Diagnosis: Acute COPD exacerbation DOC BOLTON attempted to complete follow-up phone call after recent hospitalization. No answer, unable to leave voice message due to no voice mailbox setup.
== END 2018-06-10 13:16 | disposition home or self-care (01) | DRG 88 ==
LOC: ED 04:30 → PCU 06:42
PROVIDERS: Admitting Provider Hospitalist; Emergency Provider Emergency Medicine; Family Provider Internal Medicine; PCP Internal Medicine; Visit Provider Internal Medicine
DX: J44.1 Chronic obstructive pulmonary disease with (acute) exacerbation (principal); J96.21 Acute and chronic respiratory failure with hypoxia; I24.8 Other forms of acute ischemic heart disease; E66.01 Morbid (severe) obesity due to excess calories; Z68.41 Body mass index [BMI] 40.0-44.9, adult; K21.9 Gastro-esophageal reflux disease without esophagitis; E11.9 Type 2 diabetes mellitus without complications; Z99.81 Dependence on supplemental oxygen; G89.29 Other chronic pain; M54.9 Dorsalgia, unspecified; Z87.891 Personal history of nicotine dependence; Z79.4 Long term (current) use of insulin; I10 Essential (primary) hypertension; G47.10 Hypersomnia, unspecified; M51.24 Other intervertebral disc displacement, thoracic region
CPT/HCPCS: 36415; 36600; 71275; 74177; 78452; 80048; 80053; 81001; 82803; 82962; 83605; 83690; 83735; 84484; 84703; 85025; 85027; 85379; 85610; 85730; 87040; 87633; 93005; 93017; 94640; 94667; 97802; 99251; 99283; A9500; J7030; Q9967; A4216; G0463; J2405; J2785

== ENCOUNTER 2019-03-12 11:50 | Inpatient (IN) | payer MEDICAID, SELFPAY ==
[2019-03-12] VITALS (36 sets, daily range): BP systolic 125–258; BP diastolic 83–161; PULSE 78–115; RESP 12–33; TEMP 36.3–38.1; O2SAT 79–100; BMI 45.9; BMI 46.0; BMI 46.4
--- NOTE | 2019-03-12 11:53 | RAD_ITS ---
STUDY: X-RAY CHEST REASON FOR EXAM: Female, 48 years old. Respiratory failure. TECHNIQUE: Single frontal view of the chest. COMPARISON: March 10, 2018 FINDINGS: The lungs are mildly hyperexpanded and there is a diffuse interstitial pattern which is slightly more prominent. There is no demonstrated pleural abnormality. There is stable moderate cardiomegaly. Normal mediastinum and milton. Normal visualized pulmonary arteries. Normal visualized aortic arch and descending thoracic aorta. Normal visualized thoracic spine. Normal visualized ribs, clavicles, and shoulders. There is no demonstrated abnormality of the visualized soft tissue structures of the upper abdomen. RAD/Chest 1 View (Portable) IMPRESSION: Findings compatible with mild interstitial edema/congestive failure. No acute finding. Electronically Signed: Daniel Sanford MD at 12:35 EDT , Service support ,
--- NOTE | 2019-03-12 11:54 | EKG12_ITS ---
Test Reason : SOB Blood Pressure : / mmHG Vent. Rate : 092 BPM Atrial Rate : 092 BPM P-R Int : 132 ms QRS Dur : 082 ms QT Int : 356 ms P-R-T Axes : 079 068 062 degrees QTc Int : 440 ms Normal sinus rhythm Low Voltage QRS (Limb leads) Poor R-Wave Progression Confirmed by CHIKIS MARTINEZ, SUSANA ([id number]), health editor DOV LONGO ([id number]) on 03/15/2019 10:44:13 AM Referred By: MARTHA Confirmed By:SUSANA DIOP MD
[2019-03-12] MEDS: LORazepam 2 MG/ML Syringe 0.5 MG IV (12:18)
[2019-03-12] MEDS: MethylPREDNISolone 125 MG/2 ML Vial 60 MG IV (12:21)
[2019-03-12 12:26] LABS: Base Excess 8 mmol/L (-2 to +2); Bicarbonate 36.4 mmol/L (22-26); Blood Gas Specimen Type ART; O2 Delivery Device NRB Mask; PO2 268 mmHG (75-100); SITE R Radial; SO2 100 % (95-99); Time Given 1219; Total Carbon Dioxide 39 mmol/L; pCO2 91.1 mmHg (35-45); pH 7.21 (7.35-7.45)
[2019-03-12 12:29] LABS: Prothrombin Time (Protime)PT. 13.4 SECONDS (11.7-14.9)
--- NOTE | 2019-03-12 12:29 | RAD_ITS ---
STUDY: X-RAY CHEST REASON FOR EXAM: Female, 48 years old. Intubation and NG tube placement verification. TECHNIQUE: Single frontal view of the chest. COMPARISON: Earlier in the day. FINDINGS: Endotracheal tube is present with the tip projected 4.1 cm above the marcela. The tip of the NG tube cannot be seen on the image. The lungs are hyperexpanded and unchanged. There is no demonstrated pleural abnormality. There is moderate cardiomegaly unchanged. Normal mediastinum and milton. Normal visualized pulmonary arteries. Normal visualized aortic arch and descending thoracic aorta. Normal visualized thoracic spine. Normal visualized ribs, clavicles, and shoulders. There is no demonstrated abnormality of the visualized soft tissue structures of the upper abdomen. RAD/Chest 1 View (Portable) IMPRESSION: Endotracheal and NG tube placed with no complications. Stable cardiomegaly with hyperexpansion. Electronically Signed: Daniel Sanford MD at 13:31 EDT , Service support ,
[2019-03-12 12:30] LABS: Partial Thromboplast Time 28.6 Seconds (24.1-36.2)
[2019-03-12] MEDS: Etomidate 20 MG/10 ML Vial IV (12:36)
[2019-03-12] MEDS: Rocuronium Bromide 50 MG/5 ML Vial 100 MG IV (12:37)
[2019-03-12 12:40] LABS: ALB/GLOB Ratio 0.8 RATIO (0.9-2.4); AST(SGOT) 32 U/L (15-37); Alanine Aminotransfer ALT/SGPT 51 U/L (13-56); Albumin, Serum 3.5 g/dL (3.2-5.0); Alkaline Phosphatase 164 U/L (45-117); Anion Gap 4 (5-15); BUN 13 mg/dL (7-18); BUN/Creat Ratio 19.7 RATIO (10-20); Calcium,Total 8.8 mg/dL (8.5-10.1); Chloride 97 mmol/L (98-107); Creatinine, Serum 0.66 mg/dL (0.55-1.02); EST Glomerular Filtration Rate 102 mL/min (>60); Est Glom Filt Rate - Afr Amer 124 mL/min (>60); Estimated Creatinine Clearance 83.34 ml/min; Globulin 4.2 g/dL (2.2-4.2); Glucose 220 mg/dL (74-106); Potassium 4.5 mmol/L (3.5-5.1); Protein, Total 7.7 g/dL (6.4-8.2); Sodium Level 135 mmol/L (136-145)
[2019-03-12] MEDS: Propofol 10MG/Ml 1,000 MG/100 ML Bottle 6.84 MG CONT INF ×2 (12:43→20:41)
[2019-03-12] MEDS: Propofol 200 MG/20 ML Vial 60 MG IV BOLUS ×2 (12:43→13:43)
[2019-03-12 12:49] LABS: Lactic Acid 1.1 mmol/L (0.4-2.0)
--- NOTE | 2019-03-12 13:00 | RAD_ITS ---
STUDY: X-RAY - ABDOMEN/PELVIS REASON FOR EXAM: Female, 48 years old. NG tube placement. Verification. TECHNIQUE: Single AP view of the abdomen / pelvis. COMPARISON: None. FINDINGS: Endotracheal tube is present with the tip projected approximately 4 cm above the marcela. The tip of the NG tube is projected over the fundus of the stomach. Cardiomegaly and hyperexpansion of the lungs is stable. There is an unremarkable bowel gas pattern. There is no demonstrated free abdominal air. The visualized liver, spleen and kidneys are grossly normal in size and morphology. Normal soft tissue structures. Normal visualized osseous structures. RAD/Abdomen Single View IMPRESSION: Endotracheal and NG tubes as described. No complications identified. Electronically Signed: Daniel Sanford MD at 13:34 EDT , Service support ,
[2019-03-12 13:02] LABS: Absolute Lymphocyte Count 1.59 X10^3/ul (0.83-4.51); Absolute Neutrophil Count 9.6 X10^3/uL (2.0-7.7); Basophil# 0.06 X10^3/uL; Basophil% 0.5 % (0-1); Eosinophil# 0.07 X10^3/uL; Eosinophils% 0.6 % (0-5); Hematocrit 52.2 % (37-47); Hemoglobin 16.2 g/dl (12.0-15.0); Lymphocyte # 1.59 X10^3/ul (4.0); Lymphocyte % 12.8 % (19-41); Mean Corpuscular Hgb 28.4 pg (27.0-32.0); Mean Corpuscular Volume 91.6 fL (81-99); Mean Platelet Vol. 10.6 fl (6.2-12.0); Monocyte# 1.09 X10^3/uL; Monocyte% 8.7 % (0-10); Neutrophil # 9.58 X10^3/uL (2.7-7.7); Neutrophil % 76.8 % (47-70); Platelet Count 395 K/mm3 (150-450); RBC Distribution Width CV 15.3 % (11.6-14.6); RBC Distribution Width SD 50.2 fl (35.1-43.9); White Blood Count 12.5 K/mm3 (4.4-11.0)
[2019-03-12 13:04] LABS: POSITIVE COUNT NO; POSITIVE DIFFERENTIAL NO; POSITIVE MORPHOLOGY NO
[2019-03-12] MEDS: Ipratropium/Albuterol Sulfate 3 ML AMPUL.NEB INHALATION ×4 (13:13→22:50)
[2019-03-12] MEDS: Albuterol 2.5 MG/3 ML VIAL.NEB. INHALATION (13:13)
--- NOTE | 2019-03-12 13:19 | ED.DCSUM_ITS ---
History of Present Illness Chief Complaint: Shortness of Breath Informant: Patient Onset: Yesterday Context: Gradual Onset Timing: Continuous Quality: Shortness of breath Location: Home Current Severity: Severe Maximum Severity: Severe Worsened by: Activity and coughing Relieved by: Nothing Associated Symptoms: No associated symptoms Narrative: Patient is a 48-year-old woman who has history of COPD presents with increased shortness of breath the past several days and worse the past 24-48 hours. She denies history of PE or DVT. She is on no anticoagulant. She does report productive cough. She also reports heaviness in all of her extremities. She is in obvious respiratory distress and answers questions 1-2 words at a time. Initial pulse ox 79% on room air. Prior similar symptoms: No Recent Illness/Hospitalization: Yes - Past Medical History (1) COPD with acute exacerbation Status: Acute (2) Elevated troponin Status: Acute (3) Benign essential hypertension Status: Chronic (4) Diabetes mellitus, type II Status: Chronic (5) GERD (gastroesophageal reflux disease) Status: Chronic (6) Hypertension Status: Chronic (7) Morbid obesity with BMI of 40.0-44.9, adult Status: Chronic Past Medical History - Allergies and Home Meds Allergies/Adverse Reactions: Allergies aspirin Allergy (Verified 06/09/18 02:41) Anaphylaxis cyclobenzaprine HCl [From Flexeril] Allergy (Verified 06/09/18 02:41) Rash levofloxacin [From Levaquin] Allergy (Verified 06/09/18 02:41) Rash naproxen [From Naprosyn] Allergy (Verified 06/09/18 02:41) Anaphylaxis bupropion HCl [From Wellbutrin] Adverse Reaction (Verified 06/09/18 02:41) nightmares NIGHTMARES doxycycline Adverse Reaction (Verified 06/09/18 02:41) Diarrhea Primary Care Physician: Rita Melton MD [Primary Care Provider] - Prior records reviewed: Yes Surgical History: noncontributory, - - x 2, BLTL, chest tube 3 y/o for spontaneous pneumothorax. Lives: Spouse/ Significant Other Smoking Status: Former smoker Alcohol: None Drugs: None - Family History Sibling Family History: Family History (Last Reviewed 06/09/18 @ 06:42 by Josef Suazo MD) Mother Breast cancer Cancer Father COPD (chronic obstructive pulmonary disease) Hypertension Heart disease Cancer Family History: Reports: Pulmonary Disease - age 34 secondary to pulmonary hypertension Maternal Family History: Family History (Last Reviewed 06/09/18 @ 06:42 by Josef Suazo MD) Mother Breast cancer Cancer Father COPD (chronic obstructive pulmonary disease) Hypertension Heart disease Cancer Family History: Reports: Cancer - alive age 63, breast and skin Paternal Family History: Family History (Last Reviewed 06/09/18 @ 06:42 by Josef Suazo MD) Mother Breast cancer Cancer Father COPD (chronic obstructive pulmonary disease) Hypertension Heart disease Cancer Family History: Reports: Cancer - Skin cancer, COPD - alive age 65, Heart Disease, Hypertension, No pertinent history Review of Systems ROS: Unable to Obtain - Limited secondary to illness General: Reports: Sweats. Denies: Chills, Fever, Weight loss Eyes: Denies: Visual changes - bilaterally, Blurred Vision - bilaterally, Diplopia ENT: Denies: Rhinorrhea, Sore throat Cardiovascular: Reports: Palpitations, Heart racing Respiratory: Reports: Dyspnea, Cough, Dyspnea on exertion. Denies: Sputum, Orthopnea, Paroxysmal nocturnal dyspnea, -, - Gastrointestinal: Denies: Abdominal pain, Nausea, Vomiting, Diarrhea, Melena, Hematochezia Genitourinary: Denies: Dysuria, Hematuria, Frequency Musculoskeletal: Denies: Back pain, Extremity Pain Skin: Denies: Rash, Wounds Neurological: Reports: Weakness. Denies: Headache, Numbness Hematologic: Denies: Easy bruising, Easy bleeding Allergy: Denies: Uticaria Physical Exam Vital Signs/Narrative: Vital Signs Temp Pulse Resp BP Pulse Ox 03/12/19 12:48 93 16 163/95 H 98 03/12/19 12:08 97.4 F L 102 H 29 H 210/123 H 99 03/12/19 11:51 98.2 F 106 H 33 H 194/121 H 79 Inital Vital Signs reviewed: Yes General: Well nourished, Well developed, Obese, Acute Distress Head: Normocephalic, Atraumatic Eyes: Perrl, EOMI. Negative for: Pale conjunctiva, Scleral icterus, - ENT: No rhinorrhea, TM's clear Neck: Supple, Nontender, No lymphadenopathy, No JVD Cardiovascular: Regular rhythm, No murmurs, Normal S1, Normal S2, Tachycardia Respiratory: Chest nontender, Wheezing, Diminished, Decreased Air Movement - With increased expiratory phase Abdomen: Soft, Nontender, Nondistended, Normal bowel sounds Rectal: Deferred Back: Nontender, Normal Inspection - Great thank you Extremities: Nontender, Edema - 1+ bilateral pitting edema Skin: Cyanosis. Negative for: Jaundice, Rash Neurological: Alert, Cranial nerves II-XII grossly intact, Normal Strength, Normal Sensation Psychological: Normal affect Diagnostic/Tx/Re-eval Chest X-Ray - ED: 1 View, Read by ED Physician, Normal, Heart, Mediastinum, Bony Structures, No Acute Disease, Chronic Changes Portable post intubation chest x-ray reveals proper placement of endotracheal tube. Single view abdominal x-ray reveals OG in stomach. The tube was advanced an additional 5 cm. Impressions Chest X-Ray 03/12/19 11:53 IMPRESSION: Findings compatible with mild interstitial edema/congestive failure. No acute finding. Electronically Signed: Daniel Sanford MD at 12:35 EDT , Service support , 03/12/19 11:53 Chest 1 View (Portable) [RAD] Stat 03/12/19 12:29 Abdomen Single View [RAD] Stat Chest 1 View (Portable) [RAD] Stat 03/12/19 12:30 Abdomen Single View (Portable) [RAD] Stat Laboratory Results 03/12/19 03/12/19 03/12/19 12:08 12:08 12:08 WBC 12.5 H RBC 5.70 H Hgb 16.2 H Hct 52.2 H MCV 91.6 MCH 28.4 MCHC 31.0 L RDW 15.3 H RDW Differential 50.2 H Plt Count 395 MPV 10.6 Immature Gran % (Auto) 0.600 Neut % (Auto) 76.8 H Lymph % (Auto) 12.8 L Montgomery % (Auto) 8.7 Eos % (Auto) 0.6 Baso % (Auto) 0.5 Absolute Neuts (auto) 9.6 H Absolute Lymphs (auto) 1.59 Total Counted Not Reportable PT 13.4 INR 1.0 APTT 28.6 Specimen Type Sample Site pH Bicarbonate Actual POC Total CO2 Base Excess O2 Saturation ABG pCO2 ABG pO2 Baudilio Test O2 Delivery Device Liter Flow Blood Gas Notified Whom Blood Gas Notified Time Sodium 135 L Potassium 4.5 Chloride 97 L Carbon Dioxide 34.0 H Anion Gap 4 L BUN 13 Creatinine 0.66 Estim Creat Clear Calc 83.34 Est GFR (MDRD) Af Amer 124 Est GFR (MDRD) Non-Af 102 BUN/Creatinine Ratio 19.7 Glucose 220 H Lactic Acid Calcium 8.8 Total Bilirubin 0.20 AST 32 ALT 51 Alkaline Phosphatase 164 H Troponin I 0.049 H Total Protein 7.7 Albumin 3.5 Globulin 4.2 Albumin/Globulin Ratio 0.8 L 03/12/19 03/12/19 12:08 12:21 WBC RBC Hgb Hct MCV MCH MCHC RDW RDW Differential Plt Count MPV Immature Gran % (Auto) Neut % (Auto) Lymph % (Auto) Montgomery % (Auto) Eos % (Auto) Baso % (Auto) Absolute Neuts (auto) Absolute Lymphs (auto) Total Counted PT INR APTT Specimen Type ART Sample Site R Radial pH 7.21 L Bicarbonate Actual 36.4 H POC Total CO2 39 Base Excess 8 H O2 Saturation 100 H ABG pCO2 91.1 H* ABG pO2 268 H Baudilio Test NA O2 Delivery Device NRB Mask Liter Flow 15.0 Blood Gas Notified Whom ED MD Blood Gas Notified Time 1219 Sodium Potassium Chloride Carbon Dioxide Anion Gap BUN Creatinine Estim Creat Clear Calc Est GFR (MDRD) Af Amer Est GFR (MDRD) Non-Af BUN/Creatinine Ratio Glucose Lactic Acid 1.1 Calcium Total Bilirubin AST ALT Alkaline Phosphatase Troponin I Total Protein Albumin Globulin Albumin/Globulin Ratio - Rhythm Strip Rhythm Strip: Sinus Tach Rate: 112 Ectopy: None - EKG Initial EKG Interpretation: Sinus Rhythm - Ventricular rate is 92. The EKG is normal. MA interval, QRS duration, QT interval and axis are normal. - Medical Decision Making Patient with respiratory failure. Differential includes pulmonary embolus, pneumonia, COPD exacerbation doubt congestive heart failure. EKG, appropriate blood work chest x-ray obtained. ABG revealed respiratory failure with hypercapnia and hypoxia. Patient was intolerant of BiPAP. Patient was not hypoxic on nonrebreather however with a CO2 of 91 labored breathing patient was intubated. She was informed that she would be intubated and what that meant. She acknowledged by nodding that she knew that she would be intubated. Patient received DuoNeb, albuterol aerosols, Solu-Medrol and dose of IV antibiotics. Post intubation x-ray is pending. - Critical Care Time Critical care time (excluding procedures): 30-74 minutes - 37 minutes, Discussing w/Patient &/or Family/Cognos Analyst, Discussing w/Consultants, Arranging Admission or Transfer, Performing Direct Patient Care at Bedside Procedures Procedure(s): Patient was prepped for oral tracheal intubation by RSI technique. She received a total of 20 mg of etomidate and 100 mg rocuronium. Using glide scope patient was successfully intubated with a 7.5 endotracheal tube first pass without difficulty. Breath sounds are noted bilaterally. Appropriate color change on capnometer. ED Disposition - Plan for ED Patient: Disposition: Acute Care [facility] Diagnosis: Acute respiratory failure with hypoxia and hypercapnia, COPD exacerbation, Elevated troponin Referrals: Rita Melton MD [Primary Care Provider] -
--- NOTE | 2019-03-12 13:23 | PCM.HP.STD ---
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 use: unspecified fdc insulin use status Diabetes mellitus complication status: with unspecified complications Qualified Code(s): E11.8 - Type 2 diabetes mellitus with unspecified complications History of Present Illness Date of Admission: 03/12/19 Chief Complaint: Progressive shortness of breath -over the last few weeks, worse over the last 1 day The patient is a 48 year old F with past medical history of Asthma/COPD, not on oxygen, chronic nicotine use disorder, hypertension, type II DM, morbid obesity who has been having progressive fatigue and shortness of breath ongoing for weeks and worsened over the last 1 day. History is taken from patient's fianc?/boyfriend patient was intubated at the time of exam,. Her fiance states that patient had a fever a day before admission, has been coughing, having progressive worsening shortness of breath. Initially on nasal cannula oxygen, was progressively short of breath and progressed to nonrebreather, oxygen saturations still remained low, was transitioned to BiPAP, patient still was having respiratory distress with lethargy and subsequently intubated. Labs in the ED showed blood pressure 194/121, temp 98.2F, heart rate 106, RR 33, SPO2 was 79% on 6 L of oxygen. Admitting blood work showed WBC count of 12.5, hemoglobin is 16.2, platelet count is 395, INR 1.0, PTT 28.6, ABG shows pH of 7.21, PCO2 was 91, PO2 was 268, BMP shows sodium of 135, potassium 4.5, chloride 97, bicarbonate 34, BUN of 13, creatinine 0.66, glucose 220, troponins 0.049. Admitting chest x-ray is reported as having findings with mild interstitial pneumonia/CHF Past Medical History Past Medical History (Chronic Problems): Chronic Problems (Last Reviewed 11/13/17 @ 09:36 by Danni Bahena NP-C) Morbid obesity with BMI of 40.0-44.9, adult (Chronic) Hypertension (Chronic) COPD exacerbation (Chronic) Tobacco abuse (Chronic) Hypersomnia (Chronic) Benign essential hypertension (Chronic) Herniated thoracic disc without myelopathy (Chronic) Chronic back pain (Chronic) COPD (Chronic) Asthma (Chronic) GERD (gastroesophageal reflux disease) (Chronic) Obesity (BMI 30-39.9) (Chronic) Diabetes mellitus, type II (Chronic) Medical History: Medical History (Last Reviewed 11/13/17 @ 09:36 by Danni Bahena NP-C) COPD with acute exacerbation (Acute) J44.1 Hypertensive urgency (Ruled-out) I16.0 Otitis media (Ruled-out) H66.90 Benign essential hypertension (Chronic) I10 Herniated thoracic disc without myelopathy (Chronic) M51.24 Chronic back pain (Chronic) M54.9, G89.29 COPD (Chronic) Asthma (Chronic) J45.909 GERD (gastroesophageal reflux disease) (Chronic) K21.9 Obesity (BMI 30-39.9) (Chronic) E66.9 Diabetes mellitus, type II (Chronic) E11.9 Allergies aspirin Allergy (Verified 06/09/18 02:41) Anaphylaxis cyclobenzaprine HCl [From Flexeril] Allergy (Verified 06/09/18 02:41) Rash levofloxacin [From Levaquin] Allergy (Verified 06/09/18 02:41) Rash naproxen [From Naprosyn] Allergy (Verified 06/09/18 02:41) Anaphylaxis bupropion HCl [From Wellbutrin] Adverse Reaction (Verified 06/09/18 02:41) nightmares NIGHTMARES doxycycline Adverse Reaction (Verified 06/09/18 02:41) Diarrhea Home Medications: Ambulatory Orders Medication Instructions Recorded Amlodipine [Norvasc] 10 mg PO DAILY 08/13/15 Lisinopril [Zestril] 40 mg PO DAILY 02/11/16 Hydrochlorothiazide [Hctz] 25 mg PO DAILY 10/26/17 Oxygen, Home [Home Oxygen] 2 - 4 lpm NASAL PRN PRN 10/26/17 Albuterol Aerosols [Ventolin 2.5 mg INHALATION Q2H PRN PRN #1 10/29/17 Aerosols] box Albuterol IH (ProAir) [Proair Hfa] 2 puff INHALATION Q4H PRN PRN #1 10/29/17 inhaler epinephrine 1 mg/mL injection kit 1 mg IM Q10M PRN #1 ea 11/13/17 Budesonide/Formoterol 160/4.5 2 puff INHALATION BID 03/10/18 [Symbicort 160/4.5 Mcg Inhaler (SP)] Ipratropium/Albuterol Sulfate 3 ml INHALATION 4X/DAY 03/10/18 [Duoneb] Insulin Glargine,Hum.rec.anlog 14 unit SQ DAILY #2 insuln.pen 03/13/18 [Basaglar Kwikpen U-100] Omeprazole 1 tab PO DAILY 06/09/18 Azithromycin [Zithromax] 500 mg PO DAILY #3 tab 06/10/18 Guaifenesin [Mucinex] 1,200 mg PO BID #14 tab 06/10/18 Oxycodone [Oxyir] 5 mg PO Q4H PRN PRN 5 Days #14 06/10/18 tablet Prednisone 40 mg PO DAILY #5 tab 06/10/18 Surgical History: Surgical History (Last Reviewed 06/09/18 @ 06:42 by Josef Suazo MD) History of tubal ligation (Resolved) Z98.51 History of section (Resolved) Z98.891 Surgical History: noncontributory, - - x 2, BLTL, chest tube 3 y/o for spontaneous pneumothorax. Psychiatric History: No pertinent psych hx WARP DRAWER History: No pertinent WARP DRAWER history Lives: Spouse/ Significant Other Smoking Status: Former smoker Alcohol: None Drugs: None - *Family History Sibling Family History: Family History (Last Reviewed 06/09/18 @ 06:42 by Josef Suazo MD) Mother Breast cancer Cancer Father COPD (chronic obstructive pulmonary disease) Hypertension Heart disease Cancer History Items: Pulmonary Disease - age 34 secondary to pulmonary hypertension Maternal Family History: Family History (Last Reviewed 06/09/18 @ 06:42 by Josef Suazo MD) Mother Breast cancer Cancer Father COPD (chronic obstructive pulmonary disease) Hypertension Heart disease Cancer History Items: Cancer - alive age 63, breast and skin Paternal Family History: Family History (Last Reviewed 06/09/18 @ 06:42 by Josef Suazo MD) Mother Breast cancer Cancer Father COPD (chronic obstructive pulmonary disease) Hypertension Heart disease Cancer History Items: Cancer - Skin cancer, COPD - alive age 65, Heart Disease, Hypertension, No pertinent history Review of Systems Eyes: Denies: Blurred vision, Cataracts Cardiovascular: Reports: Orthopnea Unable to obtain accurate/complete ROS d/t: Patient is intubated and sedated VTE Information - Inpt Only VTE Present on Admission: No VTE Pharm Prophylaxis ordered?: Yes Patient Problems: Active and Suspected Problems (Last Reviewed 11/13/17 @ 09:36 by Danni Bahena NP-C) Elevated troponin (Acute) Acute respiratory failure with hypoxia and hypercapnia (Acute) - Physical Exam General: - - Intubated, sedated, on [facility] ventilator HEENT: Atraumatic, PERRLA, EOMI, Normocephalic Oral: Moist Mucosa Neck: Supple Lungs: Diminished, Wheezes - ++ Cardiovascular: Regular rate, Regular Rhythm, Normal S1, Normal S2, No murmurs Abdomen: Bowel Sounds Present, Soft, Non Tender, Non-Distended, No Hepato-splenomegaly Extremities: No edema Skin: No rashes, No breakdown Musculoskeletal: No Tenderness to Palpation of Joints or Extremities Lymphatic: No Cervical, Supraclavicular, or Inguinal Adenopathy Neurological: Cranial nerves II-XII grossly intact, Neuro grossly intact Psych/Mental Status: Normal Affect, Appropriate Vital Signs Temp Pulse Resp BP Pulse Ox 97.4 F L 115 H 13 163/95 H 98 03/12/19 12:08 03/12/19 13:13 03/12/19 13:13 03/12/19 12:48 03/12/19 12:48 Oxygen Flow Rate (L/min) 15 Oxygen Delivery Method Mechanical Ventilator Weight: 114 kg Body Mass Index (BMI) 45.9 Laboratory Tests Past 24 Hrs 03/12/19 03/12/19 03/12/19 12:08 12:08 12:08 WBC 12.5 H RBC 5.70 H Hgb 16.2 H Hct 52.2 H MCV 91.6 MCH 28.4 MCHC 31.0 L RDW 15.3 H RDW Differential 50.2 H Plt Count 395 MPV 10.6 Immature Gran % (Auto) 0.600 Neut % (Auto) 76.8 H Lymph % (Auto) 12.8 L [place] % (Auto) 8.7 Eos % (Auto) 0.6 Baso % (Auto) 0.5 Absolute Neuts (auto) 9.6 H Absolute Lymphs (auto) 1.59 Total Counted Not Reportable PT 13.4 INR 1.0 APTT 28.6 Specimen Type Sample Site pH Bicarbonate Actual POC Total CO2 Base Excess O2 Saturation ABG pCO2 ABG pO2 Baudilio Test O2 Delivery Device Liter Flow Blood Gas Notified Whom Blood Gas Notified Time Sodium 135 L Potassium 4.5 Chloride 97 L Carbon Dioxide 34.0 H Anion Gap 4 L BUN 13 Creatinine 0.66 Estim Creat Clear Calc 83.34 Est GFR (MDRD) Af Amer 124 Est GFR (MDRD) Non-Af 102 BUN/Creatinine Ratio 19.7 Glucose 220 H Lactic Acid Calcium 8.8 Total Bilirubin 0.20 AST 32 ALT 51 Alkaline Phosphatase 164 H Troponin I 0.049 H Total Protein 7.7 Albumin 3.5 Globulin 4.2 Albumin/Globulin Ratio 0.8 L 03/12/19 03/12/19 12:08 12:21 WBC RBC Hgb Hct MCV MCH MCHC RDW RDW Differential Plt Count MPV Immature Gran % (Auto) Neut % (Auto) Lymph % (Auto) [place] % (Auto) Eos % (Auto) Baso % (Auto) Absolute Neuts (auto) Absolute Lymphs (auto) Total Counted PT INR APTT Specimen Type ART Sample Site R Radial pH 7.21 L Bicarbonate Actual 36.4 H POC Total CO2 39 Base Excess 8 H O2 Saturation 100 H ABG pCO2 91.1 H* ABG pO2 268 H Baudilio Test NA O2 Delivery Device NRB Mask Liter Flow 15.0 Blood Gas Notified Whom ED MD Blood Gas Notified Time 1219 Sodium Potassium Chloride Carbon Dioxide Anion Gap BUN Creatinine Estim Creat Clear Calc Est GFR (MDRD) Af Amer Est GFR (MDRD) Non-Af BUN/Creatinine Ratio Glucose Lactic Acid 1.1 Calcium Total Bilirubin AST ALT Alkaline Phosphatase Troponin I Total Protein Albumin Globulin Albumin/Globulin Ratio Assessment/Plan All Active Problems (Last Reviewed 11/13/17 @ 09:36 by Danni Bahena, BUSINESS ACCOUNT SPECIALIST-C) Acute respiratory failure with hypoxia (Acute) Elevated troponin (Acute) Acute respiratory failure with hypoxia and hypercapnia (Acute) History of tubal ligation (Resolved) History of section (Resolved) COPD with acute exacerbation (Acute) Hypertensive urgency (Ruled-out) Otitis media (Ruled-out) Tobacco abuse (Resolved) 48 year old F with past medical history of Asthma/COPD, not on oxygen, chronic nicotine use disorder, hypertension, type II DM, morbid obesity who has been having progressive fatigue and shortness of breath ongoing for weeks and worsened over the last 1 day. 1. Acute combined respiratory failure going to acute COPD exacerbation, this post intubation, mechanical ventilator Plan: admit to ICU, continue on mechanical ventilator, enrollment counselor consult, breathing treatments, IV steroids, follow up on enrollment counselor recommendations 2. Acute COPD/Asthma exacerbation, history of nicotine use, no pneumonia on x-ray, had on IV ceftriaxone and azithromycin Admitting WBC count is 12.5, no signs of fever, likely reactive, will trend Continue with breathing treatments, IV steroids, IV azithromycin 3. Elevated troponins likely secondary to known [place] troponin elevation/respiratory distress, no EKG changes suggestive of acute [place] Will trend troponin 4. Type II DM, home med list not done at the time of notes, will put on Accu-Cheks with insulin sliding scale 5. Hypertension, pressure uncontrolled secondary to agitation, home medication list not done at the time of note, will continue to monitor 6. Morbid obesity, BMI 46.0 7. DVT prophylaxis with Lovenox subcu 8. GI ppx- Famotidine IV BID 9. Code status - Full code. Patient has 2 children; oldest is 22yrs. Code Visit Inpatient E&M: 54532 Init Hosp L3
[2019-03-12] MEDS: Midazolam 2 MG/2 ML Syringe 4 MG IV (13:33)
[2019-03-12] MEDS: Ceftriaxone 1 GM/50 ML BAG IV (13:33)
--- NOTE | 2019-03-12 13:46 | HP.PCM_ITS ---
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 senior living insulin use status Diabetes mellitus complication status: with unspecified complications Qualified Code(s): E11.8 - Type 2 diabetes mellitus with unspecified complications History of Present Illness Date of Admission: 03/12/19 Chief Complaint: Progressive shortness of breath -over the last few weeks, worse over the last 1 day The patient is a 48 year old F with past medical history of Asthma/COPD, not on oxygen, chronic nicotine use disorder, hypertension, type II DM, morbid obesity who has been having progressive fatigue and shortness of breath ongoing for weeks and worsened over the last 1 day. History is taken from patient's fianc?/boyfriend patient was intubated at the time of exam,. Her fiance states that patient had a fever a day before admission, has been coughing, having progressive worsening shortness of breath. Initially on nasal cannula oxygen, was progressively short of breath and progressed to nonrebreather, oxygen saturations still remained low, was transitioned to BiPAP, patient still was having respiratory distress with let hargy and subsequently intubated. Labs in the ED showed blood pressure 194/121, temp 98.2F, heart rate 106, RR 33, SPO2 was 79% on 6 L of oxygen. Admitting blood work showed WBC count of 12.5, hemoglobin is 16.2, platelet count is 395, INR 1.0, PTT 28.6, ABG shows pH of 7.21, PCO2 was 91, PO2 was 268, BMP shows sodium of 135, potassium 4.5, chloride 97, bicarbonate 34, BUN of 13, creatinine 0.66, glucose 220, troponins 0.049. Admitting chest x-ray is reported as having findings with mild interstitial pneumonia/CHF Past Medical History Past Medical History (Chronic Problems): Chronic Problems (Last Reviewed 11/13/17 @ 09:36 by Danni Bahena NP-C) Morbid obesity with BMI of 40.0-44.9, adult (Chronic) Hypertension (Chronic) COPD exacerbation (Chronic) Tobacco abuse (Chronic) Hypersomnia (Chronic) Benign essential hypertension (Chronic) Herniated thoracic disc without myelopathy (Chronic) Chronic back pain (Chronic) COPD (Chronic) Asthma (Chronic) GERD (gastroesophageal reflux disease) (Chronic) Obesity (BMI 30-39.9) (Chronic) Diabetes mellitus, type II (Chronic) Medical History: Medical History (Last Reviewed 11/13/17 @ 09:36 by Danni Bahena NP-C) COPD with acute exacerbation (Acute) J44.1 Hypertensive urgency (Ruled-out) I16.0 Otitis media (Ruled-out) H66.90 Benign essential hypertension (Chronic) I10 Herniated thoracic disc without myelopathy (Chronic) M51.24 Chronic back pain (Chronic) M54.9, G89.29 COPD (Chronic) Asthma (Chronic) J45.909 GERD (gastroesophageal reflux disease) (Chronic) K21.9 Obesity (BMI 30-39.9) (Chronic) E66.9 Diabetes mellitus, type II (Chronic) E11.9 Allergies aspirin Allergy (Verified 06/09/18 02:41) Anaphylaxis cyclobenzaprine HCl [From Flexeril] Allergy (Verified 06/09/18 02:41) Rash levofloxacin [From Levaquin] Allergy (Verified 06/09/18 02:41) Rash naproxen [From Naprosyn] Allergy (Verified 06/09/18 02:41) Anaphylaxis bupropion HCl [From Wellbutrin] Adverse Reaction (Verified 06/09/18 02:41) nightmares NIGHTMARES doxycycline Adverse Reaction (Verified 06/09/18 02:41) Diarrhea Home Medications: Ambulatory Orders Medication Instructions Recorded Amlodipine [Norvasc] 10 mg PO DAILY 08/13/15 Lisinopril [Zestril] 40 mg PO DAILY 02/11/16 Hydrochlorothiazide [Hctz] 25 mg PO DAILY 10/26/17 Oxygen, Home [Home Oxygen] 2 - 4 lpm NASAL PRN PRN 10/26/17 Albuterol Aerosols [Ventolin 2.5 mg INHALATION Q2H PRN PRN #1 10/29/17 Aerosols] box Albuterol IH (ProAir) [Proair Hfa] 2 puff INHALATION Q4H PRN PRN #1 10/29/17 inhaler epinephrine 1 mg/mL injection kit 1 mg IM Q10M PRN #1 ea 11/13/17 Budesonide/Formoterol 160/4.5 2 puff INHALATION BID 03/10/18 [Symbicort 160/4.5 Mcg Inhaler (SP)] Ipratropium/Albuterol Sulfate 3 ml INHALATION 4X/DAY 03/10/18 [Duoneb] Insulin Glargine,Hum.rec.anlog 14 unit SQ DAILY #2 insuln.pen 03/13/18 [Basaglar Kwikpen U-100] Omeprazole 1 tab PO DAILY 06/09/18 Azithromycin [Zithromax] 500 mg PO DAILY #3 tab 06/10/18 Guaifenesin [Mucinex] 1,200 mg PO BID #14 tab 06/10/18 Oxycodone [Oxyir] 5 mg PO Q4H PRN PRN 5 Days #14 06/10/18 tablet Prednisone 40 mg PO DAILY #5 tab 06/10/18 Surgical History: Surgical History (Last Reviewed 06/09/18 @ 06:42 by Josef Suazo MD) History of tubal ligation (Resolved) Z98.51 History of section (Resolved) Z98.891 Surgical History: noncontributory, - - x 2, BLTL, chest tube 3 y/o for spontaneous pneumothorax. Psychiatric History: No pertinent psych hx LOFTER History: No pertinent LOFTER history Lives: Spouse/ Significant Other Smoking Status: Former smoker Alcohol: None Drugs: None - *Family History Sibling Family History: Family History (Last Reviewed 06/09/18 @ 06:42 by Josef Suazo MD) Mother Breast cancer Cancer Father COPD (chronic obstructive pulmonary disease) Hypertension Heart disease Cancer History Items: Pulmonary Disease - age 34 secondary to pulmonary hypertension Maternal Family History: Family History (Last Reviewed 06/09/18 @ 06:42 by Josef Suazo MD) Mother Breast cancer Cancer Father COPD (chronic obstructive pulmonary disease) Hypertension Heart disease Cancer History Items: Cancer - alive age 63, breast and skin Paternal Family History: Family History (Last Reviewed 06/09/18 @ 06:42 by Josef Suazo MD) Mother Breast cancer Cancer Father COPD (chronic obstructive pulmonary disease) Hypertension Heart disease Cancer History Items: Cancer - Skin cancer, COPD - alive age 65, Heart Disease, Hypertension, No pertinent history Review of Systems Eyes: Denies: Blurred vision, Cataracts Cardiovascular: Reports: Orthopnea Unable to obtain accurate/complete ROS d/t: Patient is intubated and sedated VTE Information - Inpt Only VTE Present on Admission: No VTE Pharm Prophylaxis ordered?: Yes Patient Problems: Active and Suspected Problems (Last Reviewed 11/13/17 @ 09:36 by Danni Bahena NP-C) Elevated troponin (Acute) Acute respiratory failure with hypoxia and hypercapnia (Acute) - Physical Exam General: - - Intubated, sedated, on [facility] ventilator HEENT: Atraumatic, PERRLA, EOMI, Normocephalic Oral: Moist Mucosa Neck: Supple Lungs: Diminished, Wheezes - ++ Cardiovascular: Regular rate, Regular Rhythm, Normal S1, Normal S2, No murmurs Abdomen: Bowel Sounds Present, Soft, Non Tender, Non-Distended, No Hepato- splenomegaly Extremities: No edema Skin: No rashes, No breakdown Musculoskeletal: No Tenderness to Palpation of Joints or Extremities Lymphatic: No Cervical, Supraclavicular, or Inguinal Adenopathy Neurological: Cranial nerves II-XII grossly intact, Neuro grossly intact Psych/Mental Status: Normal Affect, Appropriate Vital Signs Temp Pulse Resp BP Pulse Ox 97.4 F L 115 H 13 163/95 H 98 03/12/19 12:08 03/12/19 13:13 03/12/19 13:13 03/12/19 12:48 03/12/19 12:48 Oxygen Flow Rate (L/min) 15 Oxygen Delivery Method Mechanical Ventilator Weight: 114 kg Body Mass Index (BMI) 45.9 Laboratory Tests Past 24 Hrs 03/12/19 03/12/19 03/12/19 12:08 12:08 12:08 WBC 12.5 H RBC 5.70 H Hgb 16.2 H Hct 52.2 H MCV 91.6 MCH 28.4 MCHC 31.0 L RDW 15.3 H RDW Differential 50.2 H Plt Count 395 MPV 10.6 Immature Gran % (Auto) 0.600 Neut % (Auto) 76.8 H Lymph % (Auto) 12.8 L [place] % (Auto) 8.7 Eos % (Auto) 0.6 Baso % (Auto) 0.5 Absolute Neuts (auto) 9.6 H Absolute Lymphs (auto) 1.59 Total Counted Not Reportable PT 13.4 INR 1.0 APTT 28.6 Specimen Type Sample Site pH Bicarbonate Actual POC Total CO2 Base Excess O2 Saturation ABG pCO2 ABG pO2 Baudilio Test O2 Delivery Device Liter Flow Blood Gas Notified Whom Blood Gas Notified Time Sodium 135 L Potassium 4.5 Chloride 97 L Carbon Dioxide 34.0 H Anion Gap 4 L BUN 13 Creatinine 0.66 Estim Creat Clear Calc 83.34 Est GFR (MDRD) Af Amer 124 Est GFR (MDRD) Non-Af 102 BUN/Creatinine Ratio 19.7 Glucose 220 H Lactic Acid Calcium 8.8 Total Bilirubin 0.20 AST 32 ALT 51 Alkaline Phosphatase 164 H Troponin I 0.049 H Total Protein 7.7 Albumin 3.5 Globulin 4.2 Albumin/Globulin Ratio 0.8 L 03/12/19 03/12/19 12:08 12:21 WBC RBC Hgb Hct MCV MCH MCHC RDW RDW Differential Plt Count MPV Immature Gran % (Auto) Neut % (Auto) Lymph % (Auto) [place] % (Auto) Eos % (Auto) Baso % (Auto) Absolute Neuts (auto) Absolute Lymphs (auto) Total Counted PT INR APTT Specimen Type ART Sample Site R Radial pH 7.21 L Bicarbonate Actual 36.4 H POC Total CO2 39 Base Excess 8 H O2 Saturation 100 H ABG pCO2 91.1 H* ABG pO2 268 H Baudilio Test NA O2 Delivery Device NRB Mask Liter Flow 15.0 Blood Gas Notified Whom ED MD Blood Gas Notified Time 1219 Sodium Potassium Chloride Carbon Dioxide Anion Gap BUN Creatinine Estim Creat Clear Calc Est GFR (MDRD) Af Amer Est GFR (MDRD) Non-Af BUN/Creatinine Ratio Glucose Lactic Acid 1.1 Calcium Total Bilirubin AST ALT Alkaline Phosphatase Troponin I Total Protein Albumin Globulin Albumin/Globulin Ratio Assessment/Plan All Active Problems (Last Reviewed 11/13/17 @ 09:36 by Danni Bahena, MORTGAGE PROCESSING MANAGER-C) Acute respiratory failure with hypoxia (Acute) Elevated troponin (Acute) Acute respiratory failure with hypoxia and hypercapnia (Acute) History of tubal ligation (Resolved) History of section (Resolved) COPD with acute exacerbation (Acute) Hypertensive urgency (Ruled-out) Otitis media (Ruled-out) Tobacco abuse (Resolved) 48 year old F with past medical history of Asthma/COPD, not on oxygen, chronic nicotine use disorder, hypertension, type II DM, morbid obesity who has been having progressive fatigue and shortness of breath ongoing for weeks and worsened over the last 1 day. 1. Acute combined respiratory failure going to acute COPD exacerbation, this post intubation, mechanical ventilator Plan: admit to ICU, continue on mechanical ventilator, garland maker consult, breathing treatments, IV steroids, follow up on garland maker recommendations 2. Acute COPD/Asthma exacerbation, history of nicotine use, no pneumonia on x- ray, had on IV ceftriaxone and azithromycin Admitting WBC count is 12.5, no signs of fever, likely reactive, will trend Continue with breathing treatments, IV steroids, IV azithromycin 3. Elevated troponins likely secondary to known [place] troponin elevation/respiratory distress, no EKG changes suggestive of acute [place] Will trend troponin 4. Type II DM, home med list not done at the time of notes, will put on Accu- Cheks with insulin sliding scale 5. Hypertension, pressure uncontrolled secondary to agitation, home medication list not done at the time of note, will continue to monitor 6. Morbid obesity, BMI 46.0 7. DVT prophylaxis with Lovenox subcu 8. GI ppx- Famotidine IV BID 9. Code status - Full code. Patient has 2 children; oldest is 22yrs. Code Visit Inpatient E&M: 34435 Init Hosp L3
[2019-03-12] MEDS: Propofol 200 MG/20 ML Vial 80 MG IV BOLUS (14:02)
--- NOTE | 2019-03-12 14:04 | CASEMGMT ---
RN CM Assessment Introduced role of RN CM to patient Perez Campbell at bedside.? Patient is currently intubated and unable?to participate in RN CM Assessment. ?Information obtained from Jfienvandana Campbell. Care providers, pharmacy, and demographics verified. Presentation: SOB past several days, H/o COPD Admit Dx: Acute Respiratory Failure/COPD Exacerbation Re-Admit: No Barriers/Issues: Patient currently intubated, has a 22yo son Fan Self lives near patient and a 13yo son who lives in [facility] [place]. Both Son's do not live with patient. Patient has no HPOA/LW. PCP: Rita Melton Specialists: None Preferred Pharmacy: [facility] Insurance: [employer] Benefit: Yes? LNOK: El[place] Self LW/HPOA: None Living Arrangements:? Lives with her fritzfrienvandana Campbell in a SS home, 2 steps to enter ADL?s: Independent with ambulation and ADL's Transportation: Patient drives, Fritzfrienvandana Campbell to transport on DC- his cell # [phone] DME: Nebulizer, Home O2 prn, Glucometer HHC: None SNF: None Goal: Home, per Boyfriend does not feel patient would ever want to go to a SNF, feels patient would be open to HH if needed. DC PLAN: Home, CM and/or SW to follow for any emerging needs. SHAI Amaya
[2019-03-12 14:05] LABS: Base Excess 9 mmol/L (-2 to +2); Bicarbonate 35.7 mmol/L (22-26); Blood Gas Specimen Type ART; FI02 100; Mode A-C; O2 Delivery Device Vent; PEEP 5; PO2 487 mmHG (75-100); RR 16; SITE R Radial; SO2 100 % (95-99); Time Given 1402; Total Carbon Dioxide 38 mmol/L; Vt 500; pCO2 78.5 mmHg (35-45); pH 7.27 (7.35-7.45)
[2019-03-12] MEDS: fentaNYL drip 100 ML 5 MCG CONT INF ×2 (14:30→23:25)
--- NOTE | 2019-03-12 14:55 | PCM.CON.CC ---
Problem List (1) Morbid obesity with BMI of 40.0-44.9, adult Status: Chronic (2) Acute respiratory failure with hypoxia Status: Acute (3) Hypertension Status: Chronic Qualifiers: Hypertension type: essential hypertension Qualified Code(s): I10 - Essential (primary) hypertension (4) COPD exacerbation Status: Chronic (5) Tobacco abuse Status: Chronic (6) Hypersomnia Status: Chronic (7) History of tubal ligation Status: Resolved (8) History of section Status: Resolved (9) Benign essential hypertension Status: Chronic (10) Herniated thoracic disc without myelopathy Status: Chronic (11) Chronic back pain Status: Chronic (12) Asthma Status: Chronic Qualifiers: Asthma severity: unspecified severity Asthma persistence: unspecified Asthma complication type: unspecified Qualified Code(s): J45.909 - Unspecified asthma, uncomplicated; J45.909 - Unspecified asthma, uncomplicated; J45.909 - Unspecified asthma, uncomplicated (13) GERD (gastroesophageal reflux disease) Status: Chronic (14) Diabetes mellitus, type II Status: Chronic Qualifiers: Diabetes mellitus half-way insulin use: unspecified watermaster insulin use status Diabetes mellitus complication status: with unspecified complications Qualified Code(s): E11.8 - Type 2 diabetes mellitus with unspecified complications Reason for Consult Date of Consultation: 03/12/19 Reason for Consultation: Respiratory failure History of Present Illness: The patient is a 48 year old F, with past medical history listed below, who presented to [facility] on 03/12/2019 secondary to increasing shortness of breath. Patient reportedly has had several days of worsening shortness of breath, but this got particularly worse over the last 24-48 hours. Patient denied any history of PE or DVT on presentation. Patient had reported a productive cough and reported heaviness of all of her extremities. Patient was noted to have significant conversational dyspnea and initial pulse ox was noted to be 79% on room air. On arrival to the emergency room, patient was noted to have sinus tachycardia and respiratory muscle fatigue. Patient was attempted on BiPAP, but could not tolerate this secondary to claustrophobia. Patient was then prepped and intubated using rapid sequence with a 7.5 endotracheal tube without reported difficulty. Patient was transferred to the intensive care unit for further monitoring. Patient is currently intubated and sedated and unable to provide any further information. Patient has been seen in our office previously and was being treated with Dulera for asthma. Patient states she has had asthma since age 3. Patient has a recent hospitalization with similar type presentation at the beginning of October 2017. CT scan at that time did show bilateral lower lobe bronchiectasis with peribronchial or inflammation. In the outpatient office, patient had been ordered an echocardiogram, walking oximetry, sleep study and complete PFT, but none of them were completed. Patient reportedly has a fianc? with her that is unaware of her home medications. Unable to obtain further review of systems at this time. Past Medical History Past Medical History (Chronic Problems): Chronic Problems (Last Reviewed 11/13/17 @ 09:36 by Danni Bahena NP-C) Morbid obesity with BMI of 40.0-44.9, adult (Chronic) Hypertension (Chronic) COPD exacerbation (Chronic) Tobacco abuse (Chronic) Hypersomnia (Chronic) Benign essential hypertension (Chronic) Herniated thoracic disc without myelopathy (Chronic) Chronic back pain (Chronic) COPD (Chronic) Asthma (Chronic) GERD (gastroesophageal reflux disease) (Chronic) Obesity (BMI 30-39.9) (Chronic) Diabetes mellitus, type II (Chronic) Medical History: Medical History (Last Reviewed 11/13/17 @ 09:36 by Danni Bahena PULMONOLOGY TECHNICIAN-C) COPD with acute exacerbation (Acute) J44.1 Hypertensive urgency (Ruled-out) I16.0 Otitis media (Ruled-out) H66.90 Benign essential hypertension (Chronic) I10 Herniated thoracic disc without myelopathy (Chronic) M51.24 Chronic back pain (Chronic) M54.9, G89.29 COPD (Chronic) Asthma (Chronic) J45.909 GERD (gastroesophageal reflux disease) (Chronic) K21.9 Obesity (BMI 30-39.9) (Chronic) E66.9 Diabetes mellitus, type II (Chronic) E11.9 Allergies aspirin Allergy (Verified 03/12/19 13:56) Anaphylaxis cyclobenzaprine HCl [From Flexeril] Allergy (Verified 03/12/19 13:56) Rash levofloxacin [From Levaquin] Allergy (Verified 03/12/19 13:56) Rash naproxen [From Naprosyn] Allergy (Verified 03/12/19 13:56) Anaphylaxis bupropion HCl [From Wellbutrin] Adverse Reaction (Verified 03/12/19 13:56) nightmares NIGHTMARES doxycycline Adverse Reaction (Verified 03/12/19 13:56) Diarrhea Home Medications: Ambulatory Orders Medication Instructions Recorded Amlodipine [Norvasc] 10 mg PO DAILY 08/13/15 Lisinopril [Zestril] 40 mg PO DAILY 02/11/16 Hydrochlorothiazide [Hctz] 25 mg PO DAILY 10/26/17 Oxygen, Home [Home Oxygen] 2 - 4 lpm NASAL PRN PRN 10/26/17 Albuterol Aerosols [Ventolin 2.5 mg INHALATION Q2H PRN PRN #1 10/29/17 Aerosols] box Albuterol IH (ProAir) [Proair Hfa] 2 puff INHALATION Q4H PRN PRN #1 10/29/17 inhaler epinephrine 1 mg/mL injection kit 1 mg IM Q10M PRN #1 ea 11/13/17 Budesonide/Formoterol 160/4.5 2 puff INHALATION BID 03/10/18 [Symbicort 160/4.5 Mcg Inhaler (SP)] Ipratropium/Albuterol Sulfate 3 ml INHALATION 4X/DAY 03/10/18 [Duoneb] Insulin Glargine,Hum.rec.anlog 14 unit SQ DAILY #2 insuln.pen 03/13/18 [Basaglar Kwikpen U-100] Omeprazole 1 tab PO DAILY 06/09/18 Azithromycin [Zithromax] 500 mg PO DAILY #3 tab 06/10/18 Guaifenesin [Mucinex] 1,200 mg PO BID #14 tab 06/10/18 Oxycodone [Oxyir] 5 mg PO Q4H PRN PRN 5 Days #14 06/10/18 tablet Prednisone 40 mg PO DAILY #5 tab 06/10/18 Surgical History: Surgical History (Last Reviewed 06/09/18 @ 06:42 by Josef Suazo MD) History of tubal ligation (Resolved) Z98.51 History of section (Resolved) Z98.891 Surgical History: noncontributory, - - x 2, BLTL, chest tube 3 y/o for spontaneous pneumothorax. Psychiatric History: No pertinent psych hx CLOSER ON History: No pertinent CLOSER ON history Lives: Spouse/ Significant Other Smoking Status: Former smoker Alcohol: None Drugs: None - *Family History Sibling Family History: Family History (Last Reviewed 06/09/18 @ 06:42 by Josef Suazo MD) Mother Breast cancer Cancer Father COPD (chronic obstructive pulmonary disease) Hypertension Heart disease Cancer History Items: Pulmonary Disease - age 34 secondary to pulmonary hypertension Maternal Family History: Family History (Last Reviewed 06/09/18 @ 06:42 by Josef Suazo MD) Mother Breast cancer Cancer Father COPD (chronic obstructive pulmonary disease) Hypertension Heart disease Cancer History Items: Cancer - alive age 63, breast and skin Paternal Family History: Family History (Last Reviewed 06/09/18 @ 06:42 by Josef Suazo MD) Mother Breast cancer Cancer Father COPD (chronic obstructive pulmonary disease) Hypertension Heart disease Cancer History Items: Cancer - Skin cancer, COPD - alive age 65, Heart Disease, Hypertension, No pertinent history Review of Systems Unable to obtain accurate/complete ROS d/t: Intubated and sedated Patient Problems: Active and Suspected Problems (Last Reviewed 11/13/17 @ 09:36 by Danni Bahena, CHIQUIS-C) Elevated troponin (Acute) Acute respiratory failure with hypoxia and hypercapnia (Acute) Objective: Chest x-ray was personally reviewed. No obvious infiltrates are appreciated. OG was high and has been advanced. Previous CT scan was reviewed showing bronchiectasis of the lower lobes. No echocardiogram or pulmonary function test is available for review. - Physical Exam General: - - Intubated and sedated. Fair vent synchrony. Neftaly appearance. HEENT: Atraumatic, PERRLA, EOMI, Normocephalic, - - Scleral injection without icterus Oral: Moist Mucosa, No Gingival or Mucosal Lesions/ Ulcerations Neck: Supple, No JVD, No Nodes, Trachea Midline Lungs: No rhonchi, No rales, Diminished, Wheezes, - - Symmetric expansion. No dullness to percussion. Cardiovascular: Normal S1, Normal S2, No murmurs, No rub noted, No Gallop, Tachycardic Abdomen: Bowel Sounds Present, Soft, Non Tender, Non-Distended, Obese Extremities: No clubbing, No cyanosis, No edema Skin: - - Multiple tattoos appreciated. Body appearance, but no breakdown or exudate noted. Musculoskeletal: No Tenderness to Palpation of Joints or Extremities Lymphatic: No Cervical, Supraclavicular, or Inguinal Adenopathy Neurological: Cranial nerves II-XII grossly intact, Neuro grossly intact, Motor Exam 5/5 strength throughout Psych/Mental Status: Anxious, Impulsive Vital Signs Temp Pulse Resp BP Pulse Ox 36.6 C 89 16 161/85 H 100 03/12/19 14:07 03/12/19 14:43 03/12/19 14:43 03/12/19 14:07 03/12/19 14:43 Oxygen Flow Rate (L/min) 15 Oxygen Delivery Method Room Air Weight: 114 kg Body Mass Index (BMI) 45.9 Laboratory Tests Past 24 Hrs 03/12/19 03/12/19 03/12/19 12:08 12:08 12:08 WBC 12.5 H RBC 5.70 H Hgb 16.2 H Hct 52.2 H MCV 91.6 MCH 28.4 MCHC 31.0 L RDW 15.3 H RDW Differential 50.2 H Plt Count 395 MPV 10.6 Immature Gran % (Auto) 0.600 Neut % (Auto) 76.8 H Lymph % (Auto) 12.8 L Wise % (Auto) 8.7 Eos % (Auto) 0.6 Baso % (Auto) 0.5 Absolute Neuts (auto) 9.6 H Absolute Lymphs (auto) 1.59 Total Counted Not Reportable PT 13.4 INR 1.0 APTT 28.6 Specimen Type Sample Site pH Bicarbonate Actual POC Total CO2 Base Excess O2 Saturation O2 % ABG pCO2 ABG pO2 Baudilio Test Respiration Rate O2 Delivery Device Liter Flow Minute Volume Vent Mode Tidal Volume POC PEEP Blood Gas Notified Whom Blood Gas Notified Time Sodium 135 L Potassium 4.5 Chloride 97 L Carbon Dioxide 34.0 H Anion Gap 4 L BUN 13 Creatinine 0.66 Estim Creat Clear Calc 83.34 Est GFR (MDRD) Af Amer 124 Est GFR (MDRD) Non-Af 102 BUN/Creatinine Ratio 19.7 Glucose 220 H Lactic Acid Calcium 8.8 Total Bilirubin 0.20 AST 32 ALT 51 Alkaline Phosphatase 164 H Troponin I 0.049 H Total Protein 7.7 Albumin 3.5 Globulin 4.2 Albumin/Globulin Ratio 0.8 L 03/12/19 03/12/19 03/12/19 12:08 12:21 14:03 WBC RBC Hgb Hct MCV MCH MCHC RDW RDW Differential Plt Count MPV Immature Gran % (Auto) Neut % (Auto) Lymph % (Auto) Wise % (Auto) Eos % (Auto) Baso % (Auto) Absolute Neuts (auto) Absolute Lymphs (auto) Total Counted PT INR APTT Specimen Type ART ART Sample Site R Radial R Radial pH 7.21 L 7.27 L Bicarbonate Actual 36.4 H 35.7 H POC Total CO2 39 38 Base Excess 8 H 9 H O2 Saturation 100 H 100 H O2 % 100 ABG pCO2 91.1 H* 78.5 H* ABG pO2 268 H 487 H* Baudilio Test NA NA Respiration Rate 16 O2 Delivery Device NRB Mask Vent Liter Flow 15.0 Minute Volume 11.00 Vent Mode A-C Tidal Volume 500 POC PEEP 5 Blood Gas Notified Whom ED MD ED MD Blood Gas Notified Time 1219 1402 Sodium Potassium Chloride Carbon Dioxide Anion Gap BUN Creatinine Estim Creat Clear Calc Est GFR (MDRD) Af Amer Est GFR (MDRD) Non-Af BUN/Creatinine Ratio Glucose Lactic Acid 1.1 Calcium Total Bilirubin AST ALT Alkaline Phosphatase Troponin I Total Protein Albumin Globulin Albumin/Globulin Ratio Clinical Impression(s) from Imaging Studies Chest X-Ray 03/12/19 11:53 IMPRESSION: Findings compatible with mild interstitial edema/congestive failure. No acute finding. Electronically Signed: Daniel Sanford MD at 12:35 EDT , Service support , Chest X-Ray 03/12/19 12:29 IMPRESSION: Endotracheal and NG tube placed with no complications. Stable cardiomegaly with hyperexpansion. Electronically Signed: Daniel Sanford MD at 13:31 EDT , Service support , KUB X-Ray 03/12/19 13:00 IMPRESSION: Endotracheal and NG tubes as described. No complications identified. Electronically Signed: Daniel Sanford MD at 13:34 EDT , Service support , Assessment/Plan Active and Suspected Problems (Last Reviewed 11/13/17 @ 09:36 by Danni Bahena, PULMONOLOGY TECHNICIAN-C) Elevated troponin (Acute) Acute respiratory failure with hypoxia and hypercapnia (Acute) RECOMMENDATIONS: 1. Continue propofol and fentanyl for ventilator compliance 2. Empiric community-acquired pneumonia antibiotics 3. Agree with bronchodilators, IV steroids 4. Obtain echocardiogram IMPRESSIONS: 1. Acute hypoxic respiratory failure Exact etiology is unclear at this time. Patient does have elevated peak airway pressures noted on ventilator. This would suggest a high resistance scenario such as a COPD exacerbation. No obvious infiltrate is noted at this time. Patient has not been able to complete an echocardiogram for evaluation of congestive heart failure. Spontaneous awakening and breathing trials per protocol. Compliance continues to be an issue. Patient currently on propofol and fentanyl. May add as needed Ativan if necessary. Patient appears to be responding better to VC plus ventilatory technique. Empiric community-acquired pneumonia antibiotics appropriate. 2. Elevated troponin Clinical suspicion for perfusion mismatch and in a hypoxic state leading to current situation. Echocardiogram has been ordered. We will continue to trend troponins. 3. Diabetes mellitus type 2 Patient is reportedly diabetic, but home medications are not available for review. We will place on a sliding scale insulin. Possibly add tube feeds tomorrow if patient continues to require mechanical ventilation. 4. Hypertension/morbid obesity/history of noncompliance/untreated CARSON/chronic pain syndrome Complicates care, management, recovery and prognosis. Blood pressure is not an issue at this time. TIME: 37 minutes critical care time spent addressing patient's acute hypoxic respiratory failure, diabetes mellitus, elevated troponin, review of all data and collaboration with care team (2:00 PM to 3:15 PM) Code Visit 9xxxx: [id number] Critical care first hour
[2019-03-12] MEDS: 0.9% Normal Saline 1,000 ML 75 ML IV (15:00)
--- NOTE | 2019-03-12 15:00 | CON.PCM_ITS ---
Problem List (1) Morbid obesity with BMI of 40.0-44.9, adult Status: Chronic (2) Acute respiratory failure with hypoxia Status: Acute (3) Hypertension Status: Chronic Qualifiers: Hypertension type: essential hypertension Qualified Code(s): I10 - Essential (primary) hypertension (4) COPD exacerbation Status: Chronic (5) Tobacco abuse Status: Chronic (6) Hypersomnia Status: Chronic (7) History of tubal ligation Status: Resolved (8) History of section Status: Resolved (9) Benign essential hypertension Status: Chronic (10) Herniated thoracic disc without myelopathy Status: Chronic (11) Chronic back pain Status: Chronic (12) Asthma Status: Chronic Qualifiers: Asthma severity: unspecified severity Asthma persistence: unspecified Asthma complication type: unspecified Qualified Code(s): J45.909 - Unspecified asthma, uncomplicated; J45.909 - Unspecified asthma, uncomplicated; J45.909 - U nspecified asthma, uncomplicated (13) GERD (gastroesophageal reflux disease) Status: Chronic (14) Diabetes mellitus, type II Status: Chronic Qualifiers: Diabetes mellitus assisted insulin use: 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 Patient reportedly has had several days of worsening shortness of breath, but this got particularly worse over the last 24-48 hours. Patient denied any history of PE or DVT on presentation. Patient had reported a productive cough and reported heaviness of all of her extremities. Patient was noted to have significant conversational dyspnea and initial pulse ox was noted to be 79% on room air. On arrival to the emergency room, patient was noted to have sinus tachycardia and respiratory muscle fatigue. Patient was attempted on BiPAP, but could not tolerate this secondary to claustrophobia. Patient was then prepped and intubated using rapid sequence with a 7.5 endotracheal tube without reported difficulty. Patient was transferred to the intensive care unit for further monitoring. Patient is currently intubated and sedated and unable to provide any further information. Patient has been seen in our office previously and was being treated with Dulera for asthma. Patient states she has had asthma since age 3. Patient has a recent hospitalization with similar type presentation at the beginning of October 2017. CT scan at that time did show bilateral lower lobe bronchiectasis with peribronchial or inflammation. In the outpatient office, patient had been ordered an echocardiogram, walking oximetry, sleep study and complete PFT, but none of them were completed. Patient reportedly has a fianc? with her that is unaware of her home medications. Unable to obtain further review of systems at this time. Past Medical History Past Medical History (Chronic Problems): Chronic Problems (Last Reviewed 11/13/17 @ 09:36 by Danni Bahena NP-C) Morbid obesity with BMI of 40.0-44.9, adult (Chronic) Hypertension (Chronic) COPD exacerbation (Chronic) Tobacco abuse (Chronic) Hypersomnia (Chronic) Benign essential hypertension (Chronic) Herniated thoracic disc without myelopathy (Chronic) Chronic back pain (Chronic) COPD (Chronic) Asthma (Chronic) GERD (gastroesophageal reflux disease) (Chronic) Obesity (BMI 30-39.9) (Chronic) Diabetes mellitus, type II (Chronic) Medical History: Medical History (Last Reviewed 11/13/17 @ 09:36 by Danni Bahena TEST RIDER-C) COPD with acute exacerbation (Acute) J44.1 Hypertensive urgency (Ruled-out) I16.0 Otitis media (Ruled-out) H66.90 Benign essential hypertension (Chronic) I10 Herniated thoracic disc without myelopathy (Chronic) M51.24 Chronic back pain (Chronic) M54.9, G89.29 COPD (Chronic) Asthma (Chronic) J45.909 GERD (gastroesophageal reflux disease) (Chronic) K21.9 Obesity (BMI 30-39.9) (Chronic) E66.9 Diabetes mellitus, type II (Chronic) E11.9 Allergies aspirin Allergy (Verified 03/12/19 13:56) Anaphylaxis cyclobenzaprine HCl [From Flexeril] Allergy (Verified 03/12/19 13:56) Rash levofloxacin [From Levaquin] Allergy (Verified 03/12/19 13:56) Rash naproxen [From Naprosyn] Allergy (Verified 03/12/19 13:56) Anaphylaxis bupropion HCl [From Wellbutrin] Adverse Reaction (Verified 03/12/19 13:56) nightmares NIGHTMARES doxycycline Adverse Reaction (Verified 03/12/19 13:56) Diarrhea Home Medications: Ambulatory Orders Medication Instructions Recorded Amlodipine [Norvasc] 10 mg PO DAILY 08/13/15 Lisinopril [Zestril] 40 mg PO DAILY 02/11/16 Hydrochlorothiazide [Hctz] 25 mg PO DAILY 10/26/17 Oxygen, Home [Home Oxygen] 2 - 4 lpm NASAL PRN PRN 10/26/17 Albuterol Aerosols [Ventolin 2.5 mg INHALATION Q2H PRN PRN #1 10/29/17 Aerosols] box Albuterol IH (ProAir) [Proair Hfa] 2 puff INHALATION Q4H PRN PRN #1 10/29/17 inhaler epinephrine 1 mg/mL injection kit 1 mg IM Q10M PRN #1 ea 11/13/17 Budesonide/Formoterol 160/4.5 2 puff INHALATION BID 03/10/18 [Symbicort 160/4.5 Mcg Inhaler (SP)] Ipratropium/Albuterol Sulfate 3 ml INHALATION 4X/DAY 03/10/18 [Duoneb] Insulin Glargine,Hum.rec.anlog 14 unit SQ DAILY #2 insuln.pen 03/13/18 [Basaglar Kwikpen U-100] Omeprazole 1 tab PO DAILY 06/09/18 Azithromycin [Zithromax] 500 mg PO DAILY #3 tab 06/10/18 Guaifenesin [Mucinex] 1,200 mg PO BID #14 tab 06/10/18 Oxycodone [Oxyir] 5 mg PO Q4H PRN PRN 5 Days #14 06/10/18 tablet Prednisone 40 mg PO DAILY #5 tab 06/10/18 Surgical History: Surgical History (Last Reviewed 06/09/18 @ 06:42 by Josef Suazo MD) History of tubal ligation (Resolved) Z98.51 History of section (Resolved) Z98.891 Surgical History: noncontributory, - - x 2, BLTL, chest tube 3 y/o for spontaneous pneumothorax. Psychiatric History: No pertinent psych hx ASSOCIATE ARTISTIC DIRECTOR History: No pertinent ASSOCIATE ARTISTIC DIRECTOR history Lives: Spouse/ Significant Other Smoking Status: Former smoker Alcohol: None Drugs: None - *Family History Sibling Family History: Family History (Last Reviewed 06/09/18 @ 06:42 by Josef Suazo MD) Mother Breast cancer Cancer Father COPD (chronic obstructive pulmonary disease) Hypertension Heart disease Cancer History Items: Pulmonary Disease - age 34 secondary to pulmonary hypertension Maternal Family History: Family History (Last Reviewed 06/09/18 @ 06:42 by Josef Suazo MD) Mother Breast cancer Cancer Father COPD (chronic obstructive pulmonary disease) Hypertension Heart disease Cancer History Items: Cancer - alive age 63, breast and skin Paternal Family History: Family History (Last Reviewed 06/09/18 @ 06:42 by Josef Suazo MD) Mother Breast cancer Cancer Father COPD (chronic obstructive pulmonary disease) Hypertension Heart disease Cancer History Items: Cancer - Skin cancer, COPD - alive age 65, Heart Disease, Hypertension, No pertinent history Review of Systems Unable to obtain accurate/complete ROS d/t: Intubated and sedated Patient Problems: Active and Suspected Problems (Last Reviewed 11/13/17 @ 09:36 by Danni Bahena, CHIQUIS-C) Elevated troponin (Acute) Acute respiratory failure with hypoxia and hypercapnia (Acute) Objective: Chest x-ray was personally reviewed. No obvious infiltrates are appreciated. OG was high and has been advanced. Previous CT scan was reviewed showing b ronchiectasis of the lower lobes. No echocardiogram or pulmonary function test is available for review. - Physical Exam General: - - Intubated and sedated. Fair vent synchrony. Neftaly appearance. HEENT: Atraumatic, PERRLA, EOMI, Normocephalic, - - Scleral injection without icterus Oral: Moist Mucosa, No Gingival or Mucosal Lesions/ Ulcerations Neck: Supple, No JVD, No Nodes, Trachea Midline Lungs: No rhonchi, No rales, Diminished, Wheezes, - - Symmetric expansion. No dullness to percussion. Cardiovascular: Normal S1, Normal S2, No murmurs, No rub noted, No Gallop, Tachycardic Abdomen: Bowel Sounds Present, Soft, Non Tender, Non-Distended, Obese Extremities: No clubbing, No cyanosis, No edema Skin: - - Multiple tattoos appreciated. Body appearance, but no breakdown or exudate noted. Musculoskeletal: No Tenderness to Palpation of Joints or Extremities Lymphatic: No Cervical, Supraclavicular, or Inguinal Adenopathy Neurological: Cranial nerves II-XII grossly intact, Neuro grossly intact, Motor Exam 5/5 strength throughout Psych/Mental Status: Anxious, Impulsive Vital Signs Temp Pulse Resp BP Pulse Ox 36.6 C 89 16 161/85 H 100 03/12/19 14:07 03/12/19 14:43 03/12/19 14:43 03/12/19 14:07 03/12/19 14:43 Oxygen Flow Rate (L/min) 15 Oxygen Delivery Method Room Air Weight: 114 kg Body Mass Index (BMI) 45.9 Laboratory Tests Past 24 Hrs 03/12/19 03/12/19 03/12/19 12:08 12:08 12:08 WBC 12.5 H RBC 5.70 H Hgb 16.2 H Hct 52.2 H MCV 91.6 MCH 28.4 MCHC 31.0 L RDW 15.3 H RDW Differential 50.2 H Plt Count 395 MPV 10.6 Immature Gran % (Auto) 0.600 Neut % (Auto) 76.8 H Lymph % (Auto) 12.[address] [place] % (Auto) 8.7 Eos % (Auto) 0.6 Baso % (Auto) 0.5 Absolute Neuts (auto) 9.6 H Absolute Lymphs (auto) 1.59 Total Counted Not Reportable PT 13.4 INR 1.0 APTT 28.6 Specimen Type Sample Site pH Bicarbonate Actual POC Total CO2 Base Excess O2 Saturation O2 % ABG pCO2 ABG pO2 Baudilio Test Respiration Rate O2 Delivery Device Liter Flow Minute Volume Vent Mode Tidal Volume POC PEEP Blood Gas Notified Whom Blood Gas Notified Time Sodium 135 L Potassium 4.5 Chloride 97 L Carbon Dioxide 34.0 H Anion Gap 4 L BUN 13 Creatinine 0.66 Estim Creat Clear Calc 83.34 Est GFR (MDRD) Af Amer 124 Est GFR (MDRD) Non-Af 102 BUN/Creatinine Ratio 19.7 Glucose 220 H Lactic Acid Calcium 8.8 Total Bilirubin 0.20 AST 32 ALT 51 Alkaline Phosphatase 164 H Troponin I 0.049 H Total Protein 7.7 Albumin 3.5 Globulin 4.2 Albumin/Globulin Ratio 0.8 L 03/12/19 03/12/19 03/12/19 12:08 12:21 14:03 WBC RBC Hgb Hct MCV MCH MCHC RDW RDW Differential Plt Count MPV Immature Gran % (Auto) Neut % (Auto) Lymph % (Auto) [facility] % (Auto) Eos % (Auto) Baso % (Auto) Absolute Neuts (auto) Absolute Lymphs (auto) Total Counted PT INR APTT Specimen Type ART ART Sample Site R Radial R Radial pH 7.21 L 7.27 L Bicarbonate Actual 36.4 H 35.7 H POC Total CO2 39 38 Base Excess 8 H 9 H O2 Saturation 100 H 100 H O2 % 100 ABG pCO2 91.1 H* 78.5 H* ABG pO2 268 H 487 H* Baudilio Test NA NA Respiration Rate 16 O2 Delivery Device NRB Mask Vent Liter Flow 15.0 Minute Volume 11.00 Vent Mode A-C Tidal Volume 500 POC PEEP 5 Blood Gas Notified Whom ED MD ED Blood Gas Notified Time 1219 1402 Sodium Potassium Chloride Carbon Dioxide Anion Gap BUN Creatinine Estim Creat Clear Calc Est GFR (MDRD) Af Amer Est GFR (MDRD) Non-Af BUN/Creatinine Ratio Glucose Lactic Acid 1.1 Calcium Total Bilirubin AST ALT Alkaline Phosphatase Troponin I Total Protein Albumin Globulin Albumin/Globulin Ratio Clinical Impression(s) from Imaging Studies Chest X-Ray 03/12/19 11:53 IMPRESSION: Findings compatible with mild interstitial edema/congestive failure. No acute finding. Electronically Signed: Daniel Sanford MD at 12:35 EDT , Service support , Chest X-Ray 03/12/19 12:29 IMPRESSION: Endotracheal and NG tube placed with no complications. Stable cardiomegaly with hyperexpansion. Electronically Signed: Daniel Sanford MD at 13:31 EDT , Service support , KUB X-Ray 03/12/19 13:00 IMPRESSION: Endotracheal and NG tubes as described. No complications identified. Electronically Signed: Daniel Sanford MD at 13:34 EDT , Service support , Assessment/Plan Active and Suspected Problems (Last Reviewed 11/13/17 @ 09:36 by DILMA Ferreira) Elevated troponin (Acute) Acute respiratory failure with hypoxia and hypercapnia (Acute) RECOMMENDATIONS: 1. Continue propofol and fentanyl for ventilator compliance 2. Empiric community-acquired pneumonia antibiotics 3. Agree with bronchodilators, IV steroids 4. Obtain echocardiogram IMPRESSIONS: 1. Acute hypoxic respiratory failure Exact etiology is unclear at this time. Patient does have elevated peak airway pressures noted on ventilator. This would suggest a high resistance scenario such as a COPD exacerbation. No obvious infiltrate is noted at this time. Patient has not been able to complete an echocardiogram for evaluation of congestive heart failure. Spontaneous awakening and breathing trials per protocol. Compliance continues to be an issue. Patient currently on propofol and fentanyl. May add as needed Ativan if necessary. Patient appears to be responding better to VC plus ventilatory technique. Empiric community-acquired pneumonia antibiotics appropriate. 2. Elevated troponin Clinical suspicion for perfusion mismatch and in a hypoxic state leading to current situation. Echocardiogram has been ordered. We will continue to trend troponins. 3. Diabetes mellitus type 2 Patient is reportedly diabetic, but home medications are not available for review. We will place on a sliding scale insulin. Possibly add tube feeds tomorrow if patient continues to require mechanical ventilation. 4. Hypertension/morbid obesity/history of noncompliance/untreated CARSON/chronic pain syndrome Complicates care, management, recovery and prognosis. Blood pressure is not an issue at this time. TIME: 37 minutes critical care time spent addressing patient's acute hypoxic respiratory failure, diabetes mellitus, elevated troponin, review of all data and collaboration with care team (2:00 PM to 3:15 PM) Code Visit 9xxxx: [id number] Critical care first hour
--- NOTE | 2019-03-12 15:07 | ECHOCS_ITS ---
Reason For Study: PHTN Procedure This was a 2D Doppler, Color Flow transthoracic echocardiogram. Technically difficult study, patient scanned supine and on vent. The study was technically difficult. Contrast injection was performed. Exam performed portable in ICU/CCU. Left Ventricle Normal LV size. Moderate to severe concentric left ventricular hypertrophy. Left ventricular systolic function is normal. The estimated ejection fraction is 65 %. Transmitral doppler flow suggestive of impaired relaxation of left ventricle. No regional wall motion abnormalities noted. Right Ventricle Mildly dilated right ventricle. Normal systolic function. Atria Normal left atrium. Normal right atrium. No doppler evidence for ASD. Mitral Valve There is no mitral annular calcification. Normal mitral valve. Trivial mitral valve insufficiency. Tricuspid Valve Normal tricuspid valve. Trivial tricuspid valve insufficiency. Right ventricular systolic pressure estimated to be 45 mmHg. Aortic Valve Trisinus/trileaflet aortic valve. Pulmonic Valve The pulmonic valve is not well visualized. Medication Diluted definity 3ml given slow IV push to enhance endocardial definition. MMode/2D Measurements & Calculations LVIDd: 4.2 cm IVSd: 1.7 cm Ao root diam: 3.1 cm LVIDs: 2.4 cm LVPWd: 1.5 cm LA dimension: 4.1 cm FS: 42.9 % LAV(MOD-sp4): 40.0 ml LVAd ap4: 32.5 cm2 SV(MOD-sp4): 68.2 ml EDV(MOD-sp4): 103.9 ml EDV(sp4-el): 111.0 ml LVAs ap4: 15.8 cm2 ESV(MOD-sp4): 35.7 ml ESV(sp4-el): 35.8 ml EF(MOD-sp4): 65.6 % EF(sp4-el): 67.8 % SV(sp4-el): 75.2 ml LA A4 area: 16.7 cm2 RA A4 area: 15.1 cm2 Time Measurements MV dec time: 0.24 sec Doppler Measurements & Calculations MV E max ryan: 102.9 cm/sec Lat Peak E' Ryan: 10.2 cm/sec Med Peak E' Ryan: 6.8 cm/sec MV A max ryan: 118.1 cm/sec E/E' lat: 10.1 E/E' med: 15.2 MV E/A: 0.87 MV V2 max: 131.0 cm/sec MV P1/2t max ryan: 131.0 cm/sec Ao V2 max: 173.0 cm/sec MV max P.9 mmHg MV P1/2t: 78.4 msec Ao max P.0 mmHg MV V2 mean: 78.6 cm/sec MV dec slope: 489.0 cm/sec2 MV mean P.9 mmHg MV V2 VTI: 33.6 cm MVA(P1/2t): 2.8 cm2 LV V1 max: 156.1 cm/sec PA V2 max: 105.9 cm/sec TR max ryan: 325.4 cm/sec LV V1 max P.8 mmHg TR max P.4 mmHg Interpretation Summary The study was technically difficult. Contrast injection was performed. Left ventricular systolic function is normal. The estimated ejection fraction is 65 %. Moderate to severe concentric left ventricular hypertrophy. Mildly dilated right ventricle. Trivial mitral valve insufficiency. Trivial tricuspid valve insufficiency. Right ventricular systolic pressure estimated to be 45 mmHg. Transmitral doppler flow suggestive of impaired relaxation of left ventricle Ordering Physician: Herminio Dupont Referring Physician: Rita Melton M.D. Performed By: Mayur Turpin RCS
--- NOTE | 2019-03-12 16:04 | BH.SGPN.T2 ---
Behaviors/Verbalizations/Mental Status: [] Client Response/Progress/Benefit: [] Narrative Note: []patient did not tolerate the bipap and refused to wear it, it was only worn for about 5 minutes
[2019-03-12] MEDS: Heparin Injection (Vial) 5,000 UNIT/ML VIAL 5000 UNIT SC ×2 (17:29→22:36)
--- NOTE | 2019-03-12 18:40 | RAD_ITS ---
STUDY: X-RAY CHEST REASON FOR EXAM: Female, 48 years old. Documentation of right-sided PICC line placement. TECHNIQUE: Single AP portable view of the chest. COMPARISON: March 12, 2019 time stamped 1:00 PM. FINDINGS: The tip of endotracheal tube is at the aortic arch. Cardiac monitoring leads are present. Right-sided PICC line is present with the tip of the catheter in the superior vena cava. The lungs are underexpanded with crowding of the bronchovascular markings. There is no demonstrated pleural abnormality. There is mild cardiac enlargement. Normal mediastinum and milton. There is prominence of the pulmonary hilar arteries with peripheral pulmonary vascular congestion. Normal visualized aortic arch and descending thoracic aorta. Normal visualized thoracic spine. Normal visualized ribs, clavicles, and shoulders. There is no demonstrated abnormality of the visualized soft tissue structures of the upper abdomen. RAD/CXR for Line Placement IMPRESSION: 1. Appropriate positioning of right-sided PICC line. 2. Unchanged appearance of cardiomegaly and mild pulmonary congestion. Electronically Signed: Emeli Flaherty MD at 19:23 EDT , Service support ,
[2019-03-12 19:56] LABS: Bedside Glucose 278 mg/dL (70-110)
[2019-03-12] MEDS: Insulin Lispro 100 UNIT/ML INSULN.PEN SQ ×2 (19:57→23:29)
[2019-03-12] MEDS: 0.9% NaCl Peripheral Flush Adult/Peds IV (20:42)
[2019-03-12] MEDS: Chlorhexidine 15 ML PO (22:54)
[2019-03-12 23:36] LABS: Bedside Glucose 235 mg/dL (70-110)
[2019-03-13] VITALS (38 sets, daily range): BP systolic 93–145; BP diastolic 53–84; PULSE 72–91; RESP 15–16; TEMP 37–38.2; O2SAT 92–97
[2019-03-13] MEDS: Propofol 10MG/Ml 1,000 MG/100 ML Bottle 6.84 MG CONT INF ×7 (01:34→20:29)
[2019-03-13] MEDS: Ipratropium/Albuterol Sulfate 3 ML AMPUL.NEB INHALATION ×6 (02:37→22:15)
[2019-03-13] MEDS: 0.9% Normal Saline 1,000 ML 75 ML IV ×2 (03:51→19:06)
[2019-03-13 04:57] LABS: Absolute Lymphocyte Count 0.98 X10^3/ul (0.83-4.51); Absolute Neutrophil Count 7.9 X10^3/uL (2.0-7.7); Basophil# 0.01 X10^3/uL; Basophil% 0.1 % (0-1); Hematocrit 48.3 % (37-47); Lymphocyte # 0.98 X10^3/ul (4.0); Lymphocyte % 10.3 % (19-41); Mean Corp Hgb Conc 31.1 g/gl (32-36); Mean Corpuscular Hgb 28.1 pg (27.0-32.0); Mean Corpuscular Volume 90.6 fL (81-99); Mean Platelet Vol. 10.3 fl (6.2-12.0); Monocyte% 6.3 % (0-10); Neutrophil # 7.93 X10^3/uL (2.7-7.7); POSITIVE COUNT NO; POSITIVE DIFFERENTIAL NO; POSITIVE MORPHOLOGY NO; Platelet Count 410 K/mm3 (150-450); RBC Distribution Width CV 15.3 % (11.6-14.6); RBC Distribution Width SD 49.8 fl (35.1-43.9); Red Blood Count 5.33 M/mm3 (4.2-5.4); White Blood Count 9.6 K/mm3 (4.4-11.0)
--- NOTE | 2019-03-13 05:00 | RAD_ITS ---
STUDY: X-RAY CHEST REASON FOR EXAM: Female, 48 years old. Intubated TECHNIQUE: AP COMPARISON: Previous day FINDINGS: Endotracheal tube is present with the tip 3.3 cm above the marcela. Enteric tube extends to left upper abdomen. Right arm PICC is present with the tip at the cavoatrial junction. Mild central pulmonary vascular congestion slightly asymmetric on the right side accentuated on the current exam due to hypoinflation. No consolidating air space process. There is no demonstrated pleural abnormality. There is borderline cardiomegaly. Normal mediastinum and milton. Normal visualized pulmonary arteries. Normal visualized aortic arch and descending thoracic aorta. No acute bony process. There is no demonstrated abnormality of the visualized soft tissue structures of the upper abdomen. RAD/Chest 1 View (Portable) IMPRESSION: 1. Mild vascular congestion/edema similar accounting for differences in inflation. 2. Satisfactory position of right arm PICC. Electronically Signed: Andrea Guadalupe MD at 17:27 EDT , Service support ,
[2019-03-13 05:04] LABS: Anion Gap 3 (5-15); BUN 14 mg/dL (7-18); BUN/Creat Ratio 19.7 RATIO (10-20); Calcium,Total 8.4 mg/dL (8.5-10.1); Chloride 104 mmol/L (98-107); Creatinine, Serum 0.71 mg/dL (0.55-1.02); EST Glomerular Filtration Rate 94 mL/min (>60); Est Glom Filt Rate - Afr Amer 113 mL/min (>60); Estimated Creatinine Clearance 73.92 ml/min; Glucose 232 mg/dL (74-106); Potassium 4.7 mmol/L (3.5-5.1); Sodium Level 142 mmol/L (136-145)
[2019-03-13] MEDS: Heparin Injection (Vial) 5,000 UNIT/ML VIAL 5000 UNIT SC ×3 (05:22→21:21)
[2019-03-13] MEDS: Insulin Lispro 100 UNIT/ML INSULN.PEN SQ ×4 (05:22→23:47)
[2019-03-13 05:30] LABS: Bedside Glucose 206 mg/dL (70-110)
[2019-03-13] MEDS: 0.9% Saline Lock 10 ML Syringe IV (05:32)
--- NOTE | 2019-03-13 07:05 | PCM.PN.INT ---
Subjective: Patient did okay overnight. Patient continues to have periods of intermittent agitation. Patient was unable to tolerate a spontaneous awakening trial this morning. Patient did spike a fever overnight and cultures were sent. Objective: Chest x-ray this morning shows progressive right-sided interstitial infiltrates. Viral panel is not been resulted yet General: - - Intubated and sedated. RASS -2. Fair ventilator synchrony. Less cuco appearance. Morbidly obese. HEENT: Atraumatic, PERRLA, EOMI, Normocephalic, - - Scleral injection without icterus Oral: Moist Mucosa, No Gingival or Mucosal Lesions/ Ulcerations Neck: Supple, No JVD, No Nodes, Trachea Midline Lungs: No rhonchi, No rales, Diminished, Wheezes - Right greater than left, - - Symmetric expansion. No dullness to percussion. Cardiovascular: Regular rate, Regular Rhythm, Normal S1, Normal S2, No murmurs, No rub noted, No Gallop Abdomen: Bowel Sounds Present, Soft, Non Tender, Non-Distended, Obese Extremities: No clubbing, No cyanosis, Edema - Trace lower extremity Skin: - - No significant change compared to previous Musculoskeletal: No Tenderness to Palpation of Joints or Extremities, No Muscle Wasting Lymphatic: No Cervical, Supraclavicular, or Inguinal Adenopathy Neurological: Cranial nerves II-XII grossly intact, Neuro grossly intact, Motor Exam 5/5 strength throughout Psych/Mental Status: Flat Affect Vital Signs Temp Pulse Resp BP Pulse Ox 38.0 C H 87 16 118/76 93 03/13/19 06:00 03/13/19 06:42 03/13/19 06:42 03/13/19 06:00 03/13/19 06:42 Oxygen Flow Rate (L/min) 15 Oxygen Delivery Method Bi-pap Weight: 111.9 kg Body Mass Index (BMI) 46.4 Intake and Output for Last 24 Hours 03/11/19 03/12/19 03/13/19 23:59 23:59 23:59 Intake Total 1119 / 1119 766 / 766 Output Total 1850 / 1850 900 / 900 Balance -731 / -731 -134 / -134 Labs (Last 48 Hours) 03/12/19 03/12/19 03/12/19 12:08 12:08 12:08 WBC 12.5 H RBC 5.70 H Hgb 16.2 H Hct 52.2 H MCV 91.6 MCH 28.4 MCHC 31.0 L RDW 15.3 H RDW Differential 50.2 H Plt Count 395 MPV 10.6 Immature Gran % (Auto) 0.600 Neut % (Auto) 76.8 H Lymph % (Auto) 12.8 L [place] % (Auto) 8.7 Eos % (Auto) 0.6 Baso % (Auto) 0.5 Absolute Neuts (auto) 9.6 H Absolute Lymphs (auto) 1.59 Total Counted Not Reportable PT 13.4 INR 1.0 APTT 28.6 Specimen Type Sample Site pH Bicarbonate Actual POC Total CO2 Base Excess O2 Saturation O2 % ABG pCO2 ABG pO2 Baudilio Test Respiration Rate O2 Delivery Device Liter Flow Minute Volume Vent Mode Tidal Volume POC PEEP Blood Gas Notified Whom Blood Gas Notified Time Sodium 135 L Potassium 4.5 Chloride 97 L Carbon Dioxide 34.0 H Anion Gap 4 L BUN 13 Creatinine 0.66 Estim Creat Clear Calc 83.34 Est GFR (MDRD) Af Amer 124 Est GFR (MDRD) Non-Af 102 BUN/Creatinine Ratio 19.7 Glucose 220 H Lactic Acid Calcium 8.8 Total Bilirubin 0.20 AST 32 ALT 51 Alkaline Phosphatase 164 H Troponin I 0.049 H Total Protein 7.7 Albumin 3.5 Globulin 4.2 Albumin/Globulin Ratio 0.8 L POC Glucose 03/12/19 03/12/19 03/12/19 12:08 12:21 14:03 WBC RBC Hgb Hct MCV MCH MCHC RDW RDW Differential Plt Count MPV Immature Gran % (Auto) Neut % (Auto) Lymph % (Auto) [place] % (Auto) Eos % (Auto) Baso % (Auto) Absolute Neuts (auto) Absolute Lymphs (auto) Total Counted PT INR APTT Specimen Type ART ART Sample Site R Radial R Radial pH 7.21 L 7.27 L Bicarbonate Actual 36.4 H 35.7 H POC Total CO2 39 38 Base Excess 8 H 9 H O2 Saturation 100 H 100 H O2 % 100 ABG pCO2 91.1 H* 78.5 H* ABG pO2 268 H 487 H* Baudilio Test NA NA Respiration Rate 16 O2 Delivery Device NRB Mask Vent Liter Flow 15.0 Minute Volume 11.00 Vent Mode A-C Tidal Volume 500 POC PEEP 5 Blood Gas Notified Whom ED MD ED MD Blood Gas Notified Time 1219 1402 Sodium Potassium Chloride Carbon Dioxide Anion Gap BUN Creatinine Estim Creat Clear Calc Est GFR (MDRD) Af Amer Est GFR (MDRD) Non-Af BUN/Creatinine Ratio Glucose Lactic Acid 1.1 Calcium Total Bilirubin AST ALT Alkaline Phosphatase Troponin I Total Protein Albumin Globulin Albumin/Globulin Ratio POC Glucose 03/12/19 03/12/19 03/12/19 18:00 19:53 20:30 WBC RBC Hgb Hct MCV MCH MCHC RDW RDW Differential Plt Count MPV Immature Gran % (Auto) Neut % (Auto) Lymph % (Auto) [place] % (Auto) Eos % (Auto) Baso % (Auto) Absolute Neuts (auto) Absolute Lymphs (auto) Total Counted PT INR APTT Specimen Type Sample Site pH Bicarbonate Actual POC Total CO2 Base Excess O2 Saturation O2 % ABG pCO2 ABG pO2 Baudilio Test Respiration Rate O2 Delivery Device Liter Flow Minute Volume Vent Mode Tidal Volume POC PEEP Blood Gas Notified Whom Blood Gas Notified Time Sodium Potassium Chloride Carbon Dioxide Anion Gap BUN Creatinine Estim Creat Clear Calc Est GFR (MDRD) Af Amer Est GFR (MDRD) Non-Af BUN/Creatinine Ratio Glucose Lactic Acid Calcium Total Bilirubin AST ALT Alkaline Phosphatase Troponin I 0.086 H 0.129 H Total Protein Albumin Globulin Albumin/Globulin Ratio POC Glucose 278 H 03/12/19 03/12/19 03/13/19 23:29 23:35 04:40 WBC 9.6 RBC 5.33 Hgb 15.0 Hct 48.3 H MCV 90.6 MCH 28.1 MCHC 31.1 L RDW 15.3 H RDW Differential 49.8 H Plt Count 410 MPV 10.3 Immature Gran % (Auto) 0.300 Neut % (Auto) 83.0 H Lymph % (Auto) 10.3 L [place] % (Auto) 6.3 Eos % (Auto) 0.0 Baso % (Auto) 0.1 Absolute Neuts (auto) 7.9 H Absolute Lymphs (auto) 0.98 Total Counted Not Reportable PT INR APTT Specimen Type Sample Site pH Bicarbonate Actual POC Total CO2 Base Excess O2 Saturation O2 % ABG pCO2 ABG pO2 Baudilio Test Respiration Rate O2 Delivery Device Liter Flow Minute Volume Vent Mode Tidal Volume POC PEEP Blood Gas Notified Whom Blood Gas Notified Time Sodium Potassium Chloride Carbon Dioxide Anion Gap BUN Creatinine Estim Creat Clear Calc Est GFR (MDRD) Af Amer Est GFR (MDRD) Non-Af BUN/Creatinine Ratio Glucose Lactic Acid Calcium Total Bilirubin AST ALT Alkaline Phosphatase Troponin I 0.273 H Total Protein Albumin Globulin Albumin/Globulin Ratio POC Glucose 235 H 03/13/19 03/13/19 04:40 05:20 WBC RBC Hgb Hct MCV MCH MCHC RDW RDW Differential Plt Count MPV Immature Gran % (Auto) Neut % (Auto) Lymph % (Auto) [place] % (Auto) Eos % (Auto) Baso % (Auto) Absolute Neuts (auto) Absolute Lymphs (auto) Total Counted PT INR APTT Specimen Type Sample Site pH Bicarbonate Actual POC Total CO2 Base Excess O2 Saturation O2 % ABG pCO2 ABG pO2 Baudilio Test Respiration Rate O2 Delivery Device Liter Flow Minute Volume Vent Mode Tidal Volume POC PEEP Blood Gas Notified Whom Blood Gas Notified Time Sodium 142 Potassium 4.7 Chloride 104 Carbon Dioxide 35.0 H Anion Gap 3 L BUN 14 Creatinine 0.71 Estim Creat Clear Calc 73.92 Est GFR (MDRD) Af Amer 113 Est GFR (MDRD) Non-Af 94 BUN/Creatinine Ratio 19.7 Glucose 232 H Lactic Acid Calcium 8.4 L Total Bilirubin AST ALT Alkaline Phosphatase Troponin I Total Protein Albumin Globulin Albumin/Globulin Ratio POC Glucose 206 H Clinical Impression(s) from Imaging Studies Chest X-Ray 03/12/19 11:53 IMPRESSION: Findings compatible with mild interstitial edema/congestive failure. No acute finding. Electronically Signed: Daniel Sanford MD at 12:35 EDT , Service support , Chest X-Ray 03/12/19 12:29 IMPRESSION: Endotracheal and NG tube placed with no complications. Stable cardiomegaly with hyperexpansion. Electronically Signed: Daniel Sanford MD at 13:31 EDT , Service support , KUB X-Ray 03/12/19 13:00 IMPRESSION: Endotracheal and NG tubes as described. No complications identified. Electronically Signed: Daniel Sanford MD at 13:34 EDT , Service support , Chest X-Ray 03/12/19 18:40 IMPRESSION: 1. Appropriate positioning of right-sided PICC line. 2. Unchanged appearance of cardiomegaly and mild pulmonary congestion. Electronically Signed: Emeli Flaherty MD at 19:23 EDT , Service support , Medical Necessity - Tobacco Use Smoking Status: Former smoker Assessment/Plan All Active Problems (Last Reviewed 11/13/17 @ 09:36 by Danni Bahena, [facility]) Acute respiratory failure with hypoxia (Acute) Elevated troponin (Acute) Acute respiratory failure with hypoxia and hypercapnia (Acute) History of tubal ligation (Resolved) History of section (Resolved) COPD with acute exacerbation (Acute) Hypertensive urgency (Ruled-out) Otitis media (Ruled-out) Tobacco abuse (Resolved) RECOMMENDATIONS: 1. Continue propofol and fentanyl for ventilator compliance 2. Empiric community-acquired pneumonia antibiotics 3. Agree with bronchodilators, IV steroids 4. Await echocardiogram 5. Add Seroquel, possibly transition to Precedex tomorrow 6. Await viral panel IMPRESSIONS: 1. Acute hypoxic respiratory failure Exact etiology is unclear at this time. Patient appears to have increasing infiltrates on the right and interstitial type pattern. Patient continues to have high peak airway pressures. Unclear if patient has an atypical pneumonia versus viral infection. Seroquel will be added given patient's high propofol requirements. Possibly transition to Precedex therapy tomorrow, but concerned that patient will lose synchrony unless baseline medications are added. 2. Elevated troponin Clinical suspicion for perfusion mismatch and in a hypoxic state leading to current situation. Echocardiogram has been ordered. We will continue to trend troponins. 3. Diabetes mellitus type 2 Patient is reportedly diabetic, but home medications are not available for review. We will place on a sliding scale insulin. Okay to add tube feeds as patient may require prolonged mechanical ventilation 4. Hypertension/morbid obesity/history of noncompliance/untreated CARSON/chronic pain syndrome Complicates care, management, recovery and prognosis. Blood pressure is not an issue at this time. TIME: 32 minutes critical care time spent addressing patient's acute hypoxic respiratory failure, diabetes mellitus, elevated troponin, review of all data and collaboration with care team (5:45 AM to 6:45 AM) Code Visit [id number]: [id number] Critical care first hour
--- NOTE | 2019-03-13 07:11 | PN_ITS ---
Subjective: Patient did okay overnight. Patient continues to have periods of intermittent agitation. Patient was unable to tolerate a spontaneous awakening trial this morning. Patient did spike a fever overnight and cultures were sent. Objective: Chest x-ray this morning shows progressive right-sided interstitial infiltrates. Viral panel is not been resulted yet General: - - Intubated and sedated. RASS -2. Fair ventilator synchrony. Less cuco appearance. Morbidly obese. HEENT: Atraumatic, PERRLA, EOMI, Normocephalic, - - Scleral injection without icterus Oral: Moist Mucosa, No Gingival or Mucosal Lesions/ Ulcerations Neck: Supple, No JVD, No Nodes, Trachea Midline Lungs: No rhonchi, No rales, Diminished, Wheezes - Right greater than left, - - Symmetric expansion. No dullness to percussion. Cardiovascular: Regular rate, Regular Rhythm, Normal S1, Normal S2, No murmurs, No rub noted, No Gallop Abdomen: Bowel Sounds Present, Soft, Non Tender, Non-Distended, Obese Extremities: No clubbing, No cyanosis, Edema - Trace lower extremity Skin: - - No significant change compared to previous Musculoskeletal: No Tenderness to Palpation of Joints or Extremities, No Muscle Wasting Lymphatic: No Cervical, Supraclavicular, or Inguinal Adenopathy Neurological: Cranial nerves II-XII grossly intact, Neuro grossly intact, Motor Exam 5/5 strength throughout Psych/Mental Status: Flat Affect Vital Signs Temp Pulse Resp BP Pulse Ox 38.0 C H 87 16 118/76 93 03/13/19 06:00 03/13/19 06:42 03/13/19 06:42 03/13/19 06:00 03/13/19 06:42 Oxygen Flow Rate (L/min) 15 Oxygen Delivery Method Bi-pap Weight: 111.9 kg Body Mass Index (BMI) 46.4 Intake and Output for Last 24 Hours 03/11/19 03/12/19 03/13/19 23:59 23:59 23:59 Intake Total 1119 / 1119 766 / 766 Output Total 1850 / 1850 900 / 900 Balance -731 / -731 -134 / -134 Labs (Last 48 Hours) 03/12/19 03/12/19 03/12/19 12:08 12:08 12:08 WBC 12.5 H RBC 5.70 H Hgb 16.2 H Hct 52.2 H MCV 91.6 MCH 28.4 MCHC 31.0 L RDW 15.3 H RDW Differential 50.2 H Plt Count 395 MPV 10.6 Immature Gran % (Auto) 0.600 Neut % (Auto) 76.8 H Lymph % (Auto) 12.8 L [place] % (Auto) 8.7 Eos % (Auto) 0.6 Baso % (Auto) 0.5 Absolute Neuts (auto) 9.6 H Absolute Lymphs (auto) 1.59 Total Counted Not Reportable PT 13.4 INR 1.0 APTT 28.6 Specimen Type Sample Site pH Bicarbonate Actual POC Total CO2 Base Excess O2 Saturation O2 % ABG pCO2 ABG pO2 Baudilio Test Respiration Rate O2 Delivery Device Liter Flow Minute Volume Vent Mode Tidal Volume POC PEEP Blood Gas Notified Whom Blood Gas Notified Time Sodium 135 L Potassium 4.5 Chloride 97 L Carbon Dioxide 34.0 H Anion Gap 4 L BUN 13 Creatinine 0.66 Estim Creat Clear Calc 83.34 Est GFR (MDRD) Af Amer 124 Est GFR (MDRD) Non-Af 102 BUN/Creatinine Ratio 19.7 Glucose 220 H Lactic Acid Calcium 8.8 Total Bilirubin 0.20 AST 32 ALT 51 Alkaline Phosphatase 164 H Troponin I 0.049 H Total Protein 7.7 Albumin 3.5 Globulin 4.2 Albumin/Globulin Ratio 0.8 L POC Glucose 03/12/19 03/12/19 03/12/19 12:08 12:21 14:03 WBC RBC Hgb Hct MCV MCH MCHC RDW RDW Differential Plt Count MPV Immature Gran % (Auto) Neut % (Auto) Lymph % (Auto) [place] % (Auto) Eos % (Auto) Baso % (Auto) Absolute Neuts (auto) Absolute Lymphs (auto) Total Counted PT INR APTT Specimen Type ART ART Sample Site R Radial R Radial pH 7.21 L 7.27 L Bicarbonate Actual 36.4 H 35.7 H POC Total CO2 39 38 Base Excess 8 H 9 H O2 Saturation 100 H 100 H O2 % 100 ABG pCO2 91.1 H* 78.5 H* ABG pO2 268 H 487 H* Baudilio Test NA NA Respiration Rate 16 O2 Delivery Device NRB Mask Vent Liter Flow 15.0 Minute Volume 11.00 Vent Mode A-C Tidal Volume 500 POC PEEP 5 Blood Gas Notified Whom ED MD ED MD Blood Gas Notified Time 1219 1402 Sodium Potassium Chloride Carbon Dioxide Anion Gap BUN Creatinine Estim Creat Clear Calc Est GFR (MDRD) Af Amer Est GFR (MDRD) Non-Af BUN/Creatinine Ratio Glucose Lactic Acid 1.1 Calcium Total Bilirubin AST ALT Alkaline Phosphatase Troponin I Total Protein Albumin Globulin Albumin/Globulin Ratio POC Glucose 03/12/19 03/12/19 03/12/19 18:00 19:53 20:30 WBC RBC Hgb Hct MCV MCH MCHC RDW RDW Differential Plt Count MPV Immature Gran % (Auto) Neut % (Auto) Lymph % (Auto) [place] % (Auto) Eos % (Auto) Baso % (Auto) Absolute Neuts (auto) Absolute Lymphs (auto) Total Counted PT INR APTT Specimen Type Sample Site pH Bicarbonate Actual POC Total CO2 Base Excess O2 Saturation O2 % ABG pCO2 ABG pO2 Baudilio Test Respiration Rate O2 Delivery Device Liter Flow Minute Volume Vent Mode Tidal Volume POC PEEP Blood Gas Notified Whom Blood Gas Notified Time Sodium Potassium Chloride Carbon Dioxide Anion Gap BUN Creatinine Estim Creat Clear Calc Est GFR (MDRD) Af Amer Est GFR (MDRD) Non-Af BUN/Creatinine Ratio Glucose Lactic Acid Calcium Total Bilirubin AST ALT Alkaline Phosphatase Troponin I 0.086 H 0.129 H Total Protein Albumin Globulin Albumin/Globulin Ratio POC Glucose 278 H 03/12/19 03/12/19 03/13/19 23:29 23:35 04:40 WBC 9.6 RBC 5.33 Hgb 15.0 Hct 48.3 H MCV 90.6 MCH 28.1 MCHC 31.1 L RDW 15.3 H RDW Differential 49.8 H Plt Count 410 MPV 10.3 Immature Gran % (Auto) 0.300 Neut % (Auto) 83.0 H Lymph % (Auto) 10.3 L [place] % (Auto) 6.3 Eos % (Auto) 0.0 Baso % (Auto) 0.1 Absolute Neuts (auto) 7.9 H Absolute Lymphs (auto) 0.98 Total Counted Not Reportable PT INR APTT Specimen Type Sample Site pH Bicarbonate Actual POC Total CO2 Base Excess O2 Saturation O2 % ABG pCO2 ABG pO2 Baudilio Test Respiration Rate O2 Delivery Device Liter Flow Minute Volume Vent Mode Tidal Volume POC PEEP Blood Gas Notified Whom Blood Gas Notified Time Sodium Potassium Chloride Carbon Dioxide Anion Gap BUN Creatinine Estim Creat Clear Calc Est GFR (MDRD) Af Amer Est GFR (MDRD) Non-Af BUN/Creatinine Ratio Glucose Lactic Acid Calcium Total Bilirubin AST ALT Alkaline Phosphatase Troponin I 0.273 H Total Protein Albumin Globulin Albumin/Globulin Ratio POC Glucose 235 H 03/13/19 03/13/19 04:40 05:20 WBC RBC Hgb Hct MCV MCH MCHC RDW RDW Differential Plt Count MPV Immature Gran % (Auto) Neut % (Auto) Lymph % (Auto) [place] % (Auto) Eos % (Auto) Baso % (Auto) Absolute Neuts (auto) Absolute Lymphs (auto) Total Counted PT INR APTT Specimen Type Sample Site pH Bicarbonate Actual POC Total CO2 Base Excess O2 Saturation O2 % ABG pCO2 ABG pO2 Baudilio Test Respiration Rate O2 Delivery Device Liter Flow Minute Volume Vent Mode Tidal Volume POC PEEP Blood Gas Notified Whom Blood Gas Notified Time Sodium 142 Potassium 4.7 Chloride 104 Carbon Dioxide 35.0 H Anion Gap 3 L BUN 14 Creatinine 0.71 Estim Creat Clear Calc 73.92 Est GFR (MDRD) Af Amer 113 Est GFR (MDRD) Non-Af 94 BUN/Creatinine Ratio 19.7 Glucose 232 H Lactic Acid Calcium 8.4 L Total Bilirubin AST ALT Alkaline Phosphatase Troponin I Total Protein Albumin Globulin Albumin/Globulin Ratio POC Glucose 206 H Clinical Impression(s) from Imaging Studies Chest X-Ray 03/12/19 11:53 IMPRESSION: Findings compatible with mild interstitial edema/congestive failure. No acute finding. Electronically Signed: Daniel Sanford MD at 12:35 EDT , Service support , Chest X-Ray 03/12/19 12:29 IMPRESSION: Endotracheal and NG tube placed with no complications. Stable cardiomegaly with hyperexpansion. Electronically Signed: Daniel Sanford MD at 13:31 EDT , Service support , KUB X-Ray 03/12/19 13:00 IMPRESSION: Endotracheal and NG tubes as described. No complications identified. Electronically Signed: Daniel Sanford MD at 13:34 EDT , Service support , Chest X-Ray 03/12/19 18:40 IMPRESSION: 1. Appropriate positioning of right-sided PICC line. 2. Unchanged appearance of cardiomegaly and mild pulmonary congestion. Electronically Signed: Emeli Flaherty MD at 19:23 EDT , Service support , Medical Necessity - Tobacco Use Smoking Status: Former smoker Assessment/Plan All Active Problems (Last Reviewed 11/13/17 @ 09:36 by Danni Bahena, [facility]-C) Acute respiratory failure with hypoxia (Acute) Elevated troponin (Acute) Acute respiratory failure with hypoxia and hypercapnia (Acute) History of tubal ligation (Resolved) History of section (Resolved) COPD with acute exacerbation (Acute) Hypertensive urgency (Ruled-out) Otitis media (Ruled-out) Tobacco abuse (Resolved) RECOMMENDATIONS: 1. Continue propofol and fentanyl for ventilator compliance 2. Empiric community-acquired pneumonia antibiotics 3. Agree with bronchodilators, IV steroids 4. Await echocardiogram 5. Add Seroquel, possibly transition to Precedex tomorrow 6. Await viral panel IMPRESSIONS: 1. Acute hypoxic respiratory failure Exact etiology is unclear at this time. Patient appears to have increasing infiltrates on the right and interstitial type pattern. Patient continues to have high peak airway pressures. Unclear if patient has an atypical pneumonia versus viral infection. Seroquel will be added given patient's high propofol requirements. Possibly transition to Precedex therapy tomorrow, but concerned that patient will lose synchrony unless baseline medications are added. 2. Elevated troponin Clinical suspicion for perfusion mismatch and in a hypoxic state leading to current situation. Echocardiogram has been ordered. We will continue to trend troponins. 3. Diabetes mellitus type 2 Patient is reportedly diabetic, but home medications are not available for review. We will place on a sliding scale insulin. Okay to add tube feeds as patient may require prolonged mechanical ventilation 4. Hypertension/morbid obesity/history of noncompliance/untreated CARSON/chronic pain syndrome Complicates care, management, recovery and prognosis. Blood pressure is not an issue at this time. TIME: 32 minutes critical care time spent addressing patient's acute hypoxic respiratory failure, diabetes mellitus, elevated troponin, review of all data and collaboration with care team (5:45 AM to 6:45 AM) Code Visit [id number]: [id number] Critical care first hour
[2019-03-13] MEDS: fentaNYL drip 100 ML 5 MCG CONT INF ×3 (07:22→19:05)
--- NOTE | 2019-03-13 09:34 | CM.UR ---
Participated in interdisciplinary rounds this am. boyfriend and son, Zay, present for rounds. Patient remains intubated at this time. Agitated at times. Fever spiked overnight. awaiting cultures. Per DOC Beckham there is questionable family dynamics. Zay, her oldest son, is taking on responsibility as NOK. Her Parents did show up last evening but admitted they had been estranged. There is a HIPAA password in place. Case management will continue to follow for discharge needs. Already has nebulizer and oxygen at home. Marc Jean-Baptiste RN, [facility].
[2019-03-13] MEDS: Chlorhexidine 15 ML PO ×2 (11:19→21:22)
[2019-03-13] MEDS: QUEtiapine 25 MG Tablet 50 MG PO ×2 (11:20→21:20)
--- NOTE | 2019-03-13 13:56 | PCM.PN.HOSP ---
Patient Problems: Active and Suspected Problems (Last Reviewed 11/13/17 @ 09:36 by Danni Bahena NP-Shoaib) Elevated troponin (Acute) Acute respiratory failure with hypoxia and hypercapnia (Acute) Subjective: Per nursing, becomes very agitated with any movements. Vitals/I&O's: Vital Signs Temp Pulse Resp BP Pulse Ox 37.8 C H 87 16 93/54 L 93 03/13/19 12:00 03/13/19 12:00 03/13/19 12:00 03/13/19 12:00 03/13/19 12:00 Oxygen Flow Rate (L/min) 15 Oxygen Delivery Method Mechanical Ventilator Weight: 111.9 kg Body Mass Index (BMI) 46.4 Intake and Output for Last 24 Hours 03/11/19 03/12/19 03/13/19 23:59 23:59 23:59 Intake Total 1119 / 1119 766 / 766 Output Total 1850 / 1850 900 / 900 Balance -731 / -731 -134 / -134 General: - - intubated and sedated. appears older than stated age. HEENT: Atraumatic, Normocephalic Oral: Moist Mucosa, No Gingival or Mucosal Lesions/ Ulcerations Neck: No Nodes, Thyroid Normal Size and Texture Lungs: Diminished, - - coarse BS bilaterally. Cardiovascular: Regular rate, Regular Rhythm, Normal S1, Normal S2, No murmurs Abdomen: Bowel Sounds Present, Soft, Non Tender, Non-Distended, No Hepato-splenomegaly Extremities: No Calf Tenderness, Edema Skin: No rashes, No breakdown Musculoskeletal: No Tenderness to Palpation of Joints or Extremities, No Muscle Wasting Microbiology Past 72 Hours 03/12/19 14:50 Sputum, Induced/Lukens Gram Stain - Final 03/12/19 14:50 Sputum, Induced/Lukens Respiratory Culture - Preliminary Appears to be normal respiratory carrie. Further studies to follow. 03/12/19 14:50 Mucosa - Nose Respiratory Panel (PCR) - Final Laboratory Results 03/12/19 14:03: Specimen Type ART, Sample Site R Radial, pH 7.27 L, Bicarbonate Actual 35.7 H, POC Total CO2 38, Base Excess 9 H, O2 Saturation 100 H, O2 % 100, ABG pCO2 78.5 H*, ABG pO2 487 H*, Baudilio Test NA, Respiration Rate 16, O2 Delivery Device Vent, Minute Volume 11.00, Vent Mode A-C, Tidal Volume 500, POC PEEP 5, Blood Gas Notified Whom ED , Blood Gas Notified Time 1402 03/12/19 18:00: Troponin I 0.086 H 03/12/19 19:53: POC Glucose 278 H 03/12/19 20:30: Troponin I 0.129 H 03/12/19 23:29: POC Glucose 235 H 03/12/19 23:35: Troponin I 0.273 H 03/13/19 04:40: WBC 9.6, RBC 5.33, Hgb 15.0, Hct 48.3 H, MCV 90.6, MCH 28.1, MCHC 31.1 L, RDW 15.3 H, RDW Differential 49.8 H, Plt Count 410, MPV 10.3, Immature Gran % (Auto) 0.300, Neut % (Auto) 83.0 H, Lymph % (Auto) 10.3 L, [place] % (Auto) 6.3, Eos % (Auto) 0.0, Baso % (Auto) 0.1, Absolute Neuts (auto) 7.9 H, Absolute Lymphs (auto) 0.98, Total Counted Not Reportable 03/13/19 04:40: Sodium 142, Potassium 4.7, Chloride 104, Carbon Dioxide 35.0 H, Anion Gap 3 L, BUN 14, Creatinine 0.71, Estim Creat Clear Calc 73.92, Est GFR (MDRD) Af Amer 113, Est GFR (MDRD) Non-Af 94, BUN/Creatinine Ratio 19.7, Glucose 232 H, Calcium 8.4 L 03/13/19 05:20: POC Glucose 206 H Current Medications Acetaminophen (Tylenol Liquid) 650 mg GT Q6H PRN PRN PRN Reason: Fever >101 Albuterol Sulfate (Ventolin Aerosols) 2.5 mg INHALATION Q2H PRN PRN PRN Reason: SHORTNESS OF BREATH Albuterol/Ipratropium (Duoneb) 3 ml INHALATION Q4H.RT [facility] Last Admin: 03/13/19 10:40 Dose: 3 ml Bisacodyl (Dulcolax) 5 mg PO DAILY PRN PRN PRN Reason: Constipation Chlorhexidine Gluconate () 1 each TOPICAL DAILY [facility] Chlorhexidine Gluconate () 15 ml PO BID [facility] Last Admin: 03/13/19 11:19 Dose: 15 ml Dextrose (D50w Syringe) 0 gm IV X1 PRN; Protocol PRN Reason: Hypoglycemia Glucagon () 1 mg IM .X1 PRN PRN Reason: Hypoglycemia Heparin Sodium (Porcine) (Heparin Na) 5,000 unit SC Q8 [facility] Last Admin: 03/13/19 05:22 Dose: 5,000 unit Hydralazine HCl (Apresoline Iv) 20 mg IV Q4H PRN PRN PRN Reason: SBP>160 Propofol (Diprivan) 1,000 mg in 100 mls @ 6.84 mls/hr CONT INF .Q12H [facility] Last Admin: 03/13/19 12:53 Dose: 6.84 mls/hr Sodium Chloride () 1,000 mls @ 75 mls/hr IV .[id number] [facility] Last Admin: 03/13/19 03:51 Dose: 75 mls/hr Azithromycin 500 mg/ Dextrose 255 mls @ 250 mls/hr IV Q24 [facility] Stop: 03/15/19 11:02 Last Admin: 03/13/19 12:39 Dose: 250 mls/hr Famotidine 20 mg/ Sodium (Chloride) 10 mls @ 300 mls/hr IV Q12 [facility] Last Admin: 03/13/19 12:39 Dose: 300 mls/hr Sodium Chloride () 250 mls @ 15 mls/hr IV .[id number] PRN PRN Reason: SALINE FLUSH Sodium Chloride () 500 mls @ 15 mls/hr IV .[id number] PRN PRN Reason: SALINE FLUSH Fentanyl () 100 mls @ 5 mls/hr CONT INF .Q20H [facility] Last Admin: 03/13/19 12:53 Dose: 5 mls/hr Insulin Human Lispro (Humalog Kwikpen (Bkc)) 0 unit SQ Q6 [facility]; Protocol Last Admin: 03/13/19 05:22 Dose: 1 u Labetalol HCl (Trandate) 20 mg IV Q4H PRN PRN PRN Reason: SBP > 160 Last Admin: 03/12/19 22:37 Dose: 20 mg Magnesium Hydroxide (Milk Of Magnesia) 30 ml PO DAILY PRN PRN PRN Reason: Constipation Methylprednisolone (Solu-Medrol) 40 mg IV Q8 [facility] Last Admin: 03/13/19 05:22 Dose: 40 mg Ondansetron HCl (Zofran) 4 mg IV Q8H PRN PRN PRN Reason: Nausea Psyllium Hydrophilic Mucilloid (Metamucil) 1 packet PO DAILY PRN PRN PRN Reason: CONSTIPATION Quetiapine Fumarate (Seroquel) 50 mg PO BID [facility] Last Admin: 03/13/19 11:20 Dose: 50 mg Sodium Chloride () 10 - 40 ml IV UD PRN PRN Reason: SALINE FLUSH Last Admin: 03/13/19 05:32 Dose: 40 ml Medical Necessity - Tobacco Use Smoking Status: Former smoker Assessment/Plan All Active Problems (Last Reviewed 11/13/17 @ 09:36 by Danni Bahena, SOCIAL WORKER [employer]-C) Acute respiratory failure with hypoxia (Acute) Elevated troponin (Acute) Acute respiratory failure with hypoxia and hypercapnia (Acute) History of tubal ligation (Resolved) History of section (Resolved) COPD with acute exacerbation (Acute) Hypertensive urgency (Ruled-out) Otitis media (Ruled-out) Tobacco abuse (Resolved) 1. acute hypoxic and hypercapneic respiratory failure ongoing 2/2 AECOPD +/- PNA on vent--mgmt per CCM 2. AECOPD ongoing steroids, BDs 3. Agitation fentanyl and propofol seroquel 4. DM2 uncontrolled currently on SSI exacerbated by steroids resume Lantus, but at lower dosing while NPO. 5. VTE proph: SQ heparin. Code Visit Inpatient E&M: 52309 Subs Hosp L3
--- NOTE | 2019-03-13 14:04 | PN_ITS ---
Patient Problems: Active and Suspected Problems (Last Reviewed 11/13/17 @ 09:36 by Danni Baehna NP-Shoaib) Elevated troponin (Acute) Acute respiratory failure with hypoxia and hypercapnia (Acute) Subjective: Per nursing, becomes very agitated with any movements. Vitals/I&O's: Vital Signs Temp Pulse Resp BP Pulse Ox 37.8 C H 87 16 93/54 L 93 03/13/19 12:00 03/13/19 12:00 03/13/19 12:00 03/13/19 12:00 03/13/19 12:00 Oxygen Flow Rate (L/min) 15 Oxygen Delivery Method Mechanical Ventilator Weight: 111.9 kg Body Mass Index (BMI) 46.4 Intake and Output for Last 24 Hours 03/11/19 03/12/19 03/13/19 23:59 23:59 23:59 Intake Total 1119 / 1119 766 / 766 Output Total 1850 / 1850 900 / 900 Balance -731 / -731 -134 / -134 General: - - intubated and sedated. appears older than stated age. HEENT: Atraumatic, Normocephalic Oral: Moist Mucosa, No Gingival or Mucosal Lesions/ Ulcerations Neck: No Nodes, Thyroid Normal Size and Texture Lungs: Diminished, - - coarse BS bilaterally. Cardiovascular: Regular rate, Regular Rhythm, Normal S1, Normal S2, No murmurs Abdomen: Bowel Sounds Present, Soft, Non Tender, Non-Distended, No Hepato- splenomegaly Extremities: No Calf Tenderness, Edema Skin: No rashes, No breakdown Musculoskeletal: No Tenderness to Palpation of Joints or Extremities, No Muscle Wasting Microbiology Past 72 Hours 03/12/19 14:50 Sputum, Induced/Lukens Gram Stain - Final 03/12/19 14:50 Sputum, Induced/Lukens Respiratory Culture - Preliminary Appears to be normal respiratory carrie. Further studies to follow. 03/12/19 14:50 Mucosa - Nose Respiratory Panel (PCR) - Final Laboratory Results 03/12/19 14:03: Specimen Type ART, Sample Site R Radial, pH 7.27 L, Bicarbonate Actual 35.7 H, POC Total CO2 38, Base Excess 9 H, O2 Saturation 100 H, O2 % 100, ABG pCO2 78.5 H*, ABG pO2 487 H*, Baudilio Test NA, Respiration Rate 16, O2 Delivery Device Vent, Minute Volume 11.00, Vent Mode A-C, Tidal Volume 500, POC PEEP 5, Blood Gas Notified Whom ED , Blood Gas Notified Time 1402 03/12/19 18:00: Troponin I 0.086 H 03/12/19 19:53: POC Glucose 278 H 03/12/19 20:30: Troponin I 0.129 H 03/12/19 23:29: POC Glucose 235 H 03/12/19 23:35: Troponin I 0.273 H 03/13/19 04:40: WBC 9.6, RBC 5.33, Hgb 15.0, Hct 48.3 H, MCV 90.6, MCH 28.1, MCHC 31.1 L, RDW 15.3 H, RDW Differential 49.8 H, Plt Count 410, MPV 10.3, Immature Gran % (Auto) 0.300, Neut % (Auto) 83.0 H, Lymph % (Auto) 10.3 L, [place] % (Auto) 6.3, Eos % (Auto) 0.0, Baso % (Auto) 0.1, Absolute Neuts (auto) 7.9 H, Absolute Lymphs (auto) 0.98, Total Counted Not Reportable 03/13/19 04:40: Sodium 142, Potassium 4.7, Chloride 104, Carbon Dioxide 35.0 H, Anion Gap 3 L, BUN 14, Creatinine 0.71, Estim Creat Clear Calc 73.92, Est GFR (MDRD) Af Amer 113, Est GFR (MDRD) Non-Af 94, BUN/Creatinine Ratio 19.7, Glucose 232 H, Calcium 8.4 L 03/13/19 05:20: POC Glucose 206 H Current Medications Acetaminophen (Tylenol Liquid) 650 mg GT Q6H PRN PRN PRN Reason: Fever >101 Albuterol Sulfate (Ventolin Aerosols) 2.5 mg INHALATION Q2H PRN PRN PRN Reason: SHORTNESS OF BREATH Albuterol/Ipratropium (Duoneb) 3 ml INHALATION Q4H.RT [facility] Last Admin: 03/13/19 10:40 Dose: 3 ml Bisacodyl (Dulcolax) 5 mg PO DAILY PRN PRN PRN Reason: Constipation Chlorhexidine Gluconate () 1 each TOPICAL DAILY [facility] Chlorhexidine Gluconate () 15 ml PO BID [facility] Last Admin: 03/13/19 11:19 Dose: 15 ml Dextrose (D50w Syringe) 0 gm IV X1 PRN; Protocol PRN Reason: Hypoglycemia Glucagon () 1 mg IM .X1 PRN PRN Reason: Hypoglycemia Heparin Sodium (Porcine) (Heparin Na) 5,000 unit SC Q8 [facility] Last Admin: 03/13/19 05:22 Dose: 5,000 unit Hydralazine HCl (Apresoline Iv) 20 mg IV Q4H PRN PRN PRN Reason: SBP>160 Propofol (Diprivan) 1,000 mg in 100 mls @ 6.84 mls/hr CONT INF .Q12H [facility] Last Admin: 03/13/19 12:53 Dose: 6.84 mls/hr Sodium Chloride () 1,000 mls @ 75 mls/hr IV .[id number] [facility] Last Admin: 03/13/19 03:51 Dose: 75 mls/hr Azithromycin 500 mg/ Dextrose 255 mls @ 250 mls/hr IV Q24 [facility] Stop: 03/15/19 11:02 Last Admin: 03/13/19 12:39 Dose: 250 mls/hr Famotidine 20 mg/ Sodium (Chloride) 10 mls @ 300 mls/hr IV Q12 [facility] Last Admin: 03/13/19 12:39 Dose: 300 mls/hr Sodium Chloride () 250 mls @ 15 mls/hr IV .[id number] PRN PRN Reason: SALINE FLUSH Sodium Chloride () 500 mls @ 15 mls/hr IV .[id number] PRN PRN Reason: SALINE FLUSH Fentanyl () 100 mls @ 5 mls/hr CONT INF .Q20H [facility] Last Admin: 03/13/19 12:53 Dose: 5 mls/hr Insulin Human Lispro (Humalog Kwikpen (Bkc)) 0 unit SQ Q6 [facility]; Protocol Last Admin: 03/13/19 05:22 Dose: 1 u Labetalol HCl (Trandate) 20 mg IV Q4H PRN PRN PRN Reason: SBP > 160 Last Admin: 03/12/19 22:37 Dose: 20 mg Magnesium Hydroxide (Milk Of Magnesia) 30 ml PO DAILY PRN PRN PRN Reason: Constipation Methylprednisolone (Solu-Medrol) 40 mg IV Q8 [facility] Last Admin: 03/13/19 05:22 Dose: 40 mg Ondansetron HCl (Zofran) 4 mg IV Q8H PRN PRN PRN Reason: Nausea Psyllium Hydrophilic Mucilloid (Metamucil) 1 packet PO DAILY PRN PRN PRN Reason: CONSTIPATION Quetiapine Fumarate (Seroquel) 50 mg PO BID [facility] Last Admin: 03/13/19 11:20 Dose: 50 mg Sodium Chloride () 10 - 40 ml IV UD PRN PRN Reason: SALINE FLUSH Last Admin: 03/13/19 05:32 Dose: 40 ml Medical Necessity - Tobacco Use Smoking Status: Former smoker Assessment/Plan All Active Problems (Last Reviewed 11/13/17 @ 09:36 by Danni Bahena CAD SPECIALIST-C) Acute respiratory failure with hypoxia (Acute) Elevated troponin (Acute) Acute respiratory failure with hypoxia and hypercapnia (Acute) History of tubal ligation (Resolved) History of section (Resolved) COPD with acute exacerbation (Acute) Hypertensive urgency (Ruled-out) Otitis media (Ruled-out) Tobacco abuse (Resolved) 1. acute hypoxic and hypercapneic respiratory failure * ongoing * 2/2 AECOPD +/- PNA * on vent--mgmt per CCM 2. AECOPD * ongoing * steroids, BDs 3. Agitation * fentanyl and propofol * seroquel 4. DM2 uncontrolled * currently on SSI * exacerbated by steroids * resume Lantus, but at lower dosing while NPO. 5. VTE proph: SQ heparin. Code Visit Inpatient E&M: [id number] Subs Hosp L3
[2019-03-13 14:11] LABS: Bedside Glucose 274 mg/dL (70-110)
[2019-03-13] MEDS: Vital AF 1.2 Cal Liquid 1,000 ML 50 ML GT (15:41)
[2019-03-13 18:40] LABS: Bedside Glucose 193 mg/dL (70-110)
[2019-03-13] MEDS: CHLORHEXIDINE GLUC 2% CLOTH 1 EACH TOWELETTE TOPICAL (19:05)
[2019-03-14] VITALS (39 sets, daily range): BP systolic 116–164; BP diastolic 65–111; PULSE 57–92; RESP 12–22; TEMP 37.4–37.9; O2SAT 91–97
[2019-03-14] MEDS: Propofol 10MG/Ml 1,000 MG/100 ML Bottle 6.84 MG CONT INF ×4 (00:01→17:29)
[2019-03-14] MEDS: fentaNYL drip 100 ML 5 MCG CONT INF ×4 (00:02→17:29)
[2019-03-14 02:16] LABS: Bedside Glucose 209 mg/dL (70-110)
[2019-03-14] MEDS: Ipratropium/Albuterol Sulfate 3 ML AMPUL.NEB INHALATION ×6 (03:25→22:37)
[2019-03-14 04:44] LABS: Absolute Lymphocyte Count 0.98 X10^3/ul (0.83-4.51); Absolute Neutrophil Count 8.1 X10^3/uL (2.0-7.7); Hematocrit 47.4 % (37-47); Hemoglobin 14.5 g/dl (12.0-15.0); Lymphocyte # 0.98 X10^3/ul (4.0); Lymphocyte % 9.7 % (19-41); Mean Corp Hgb Conc 30.6 g/gl (32-36); Mean Corpuscular Hgb 27.5 pg (27.0-32.0); Mean Corpuscular Volume 89.9 fL (81-99); Mean Platelet Vol. 10.7 fl (6.2-12.0); Monocyte# 0.98 X10^3/uL; Monocyte% 9.7 % (0-10); Neutrophil # 8.11 X10^3/uL (2.7-7.7); Neutrophil % 80.4 % (47-70); Platelet Count 393 K/mm3 (150-450); RBC Distribution Width SD 50.6 fl (35.1-43.9); Red Blood Count 5.27 M/mm3 (4.2-5.4); White Blood Count 10.1 K/mm3 (4.4-11.0)
[2019-03-14 04:46] LABS: POSITIVE COUNT NO; POSITIVE DIFFERENTIAL NO; POSITIVE MORPHOLOGY NO
[2019-03-14 04:52] LABS: BUN 20 mg/dL (7-18); Creatinine, Serum 0.71 mg/dL (0.55-1.02); Estimated Creatinine Clearance 73.92 ml/min; Glucose 266 mg/dL (74-106)
[2019-03-14 04:53] LABS: Anion Gap 3 (5-15); BUN/Creat Ratio 28.2 RATIO (10-20); Calcium,Total 8.3 mg/dL (8.5-10.1); Chloride 107 mmol/L (98-107); EST Glomerular Filtration Rate 94 mL/min (>60); Est Glom Filt Rate - Afr Amer 114 mL/min (>60); Potassium 4.6 mmol/L (3.5-5.1); Sodium Level 143 mmol/L (136-145)
[2019-03-14] MEDS: Heparin Injection (Vial) 5,000 UNIT/ML VIAL 5000 UNIT SC ×3 (05:33→21:04)
[2019-03-14] MEDS: 0.9% Saline Lock 10 ML Syringe IV ×3 (05:34→22:16)
[2019-03-14] MEDS: Insulin Lispro 100 UNIT/ML INSULN.PEN SQ ×3 (05:34→17:39)
[2019-03-14 06:01] LABS: Bedside Glucose 232 mg/dL (70-110)
--- NOTE | 2019-03-14 06:52 | PN_ITS ---
Subjective: Patient did okay overnight. Patient continues to have severe issues with anxiety and coughing with any care. This leads to desaturations. Patient was unable to tolerate spontaneous awakening trial this morning. Patient did spike a fever yesterday, but remained hemodynamically stable. Patient is tolerating tube feeds well General: - - Intubated and sedated. RASS -2. Morbidly obese. HEENT: Atraumatic, PERRLA, EOMI, Normocephalic, - - Scleral injection without icterus Oral: Moist Mucosa, No Gingival or Mucosal Lesions/ Ulcerations, - - Carotid posterior pharynx Neck: Supple, No Nodes, Trachea Midline, - - Difficult to assess secondary to body habitus Lungs: No rales, Diminished - Improved air exchange today, Wheezes, - - Symmetric expansion. No dullness to percussion. Cardiovascular: Regular rate, Regular Rhythm, Normal S1, Normal S2, No murmurs, No rub noted, No Gallop Abdomen: Bowel Sounds Present, Soft, Non Tender, Non-Distended, Obese Extremities: No clubbing, No cyanosis, Edema - Trace lower extremity Skin: No rashes, No breakdown Musculoskeletal: No Tenderness to Palpation of Joints or Extremities Lymphatic: No Cervical, Supraclavicular, or Inguinal Adenopathy Neurological: Cranial nerves II-XII grossly intact, Neuro grossly intact, Motor Exam 5/5 strength throughout Psych/Mental Status: Flat Affect Vital Signs Temp Pulse Resp BP Pulse Ox 37.4 C H 76 16 128/81 H 96 03/14/19 06:00 03/14/19 06:00 03/14/19 06:00 03/14/19 06:00 03/14/19 06:00 Oxygen Flow Rate (L/min) 15 Oxygen Delivery Method Mechanical Ventilator Weight: 112.2 kg Body Mass Index (BMI) 46.4 Intake and Output for Last 24 Hours 03/12/19 03/13/19 03/14/19 23:59 23:59 23:59 Intake Total 1119 / 1119 3677 / 3677 1065 / 1065 Output Total 1850 / 1850 3000 / 3000 400 / 400 Balance -731 / -731 677 / 677 665 / 665 Labs (Last 48 Hours) 03/12/19 03/12/19 03/12/19 12:08 12:08 12:08 WBC 12.5 H RBC 5.70 H Hgb 16.2 H Hct 52.2 H MCV 91.6 MCH 28.4 MCHC 31.0 L RDW 15.3 H RDW Differential 50.2 H Plt Count 395 MPV 10.6 Immature Gran % (Auto) 0.600 Neut % (Auto) 76.8 H Lymph % (Auto) 12.8 L [place] % (Auto) 8.7 Eos % (Auto) 0.6 Baso % (Auto) 0.5 Absolute Neuts (auto) 9.6 H Absolute Lymphs (auto) 1.59 Total Counted Not Reportable PT 13.4 INR 1.0 APTT 28.6 Specimen Type Sample Site pH Bicarbonate Actual POC Total CO2 Base Excess O2 Saturation O2 % ABG pCO2 ABG pO2 Baudilio Test Respiration Rate O2 Delivery Device Liter Flow Minute Volume Vent Mode Tidal Volume POC PEEP Blood Gas Notified Whom Blood Gas Notified Time Sodium 135 L Potassium 4.5 Chloride 97 L Carbon Dioxide 34.0 H Anion Gap 4 L BUN 13 Creatinine 0.66 Estim Creat Clear Calc 83.34 Est GFR (MDRD) Af Amer 124 Est GFR (MDRD) Non-Af 102 BUN/Creatinine Ratio 19.7 Glucose 220 H Lactic Acid Calcium 8.8 Total Bilirubin 0.20 AST 32 ALT 51 Alkaline Phosphatase 164 H Troponin I 0.049 H Total Protein 7.7 Albumin 3.5 Globulin 4.2 Albumin/Globulin Ratio 0.8 L POC Glucose 03/12/19 03/12/19 03/12/19 12:08 12:21 14:03 WBC RBC Hgb Hct MCV MCH MCHC RDW RDW Differential Plt Count MPV Immature Gran % (Auto) Neut % (Auto) Lymph % (Auto) [place] % (Auto) Eos % (Auto) Baso % (Auto) Absolute Neuts (auto) Absolute Lymphs (auto) Total Counted PT INR APTT Specimen Type ART ART Sample Site R Radial R Radial pH 7.21 L 7.27 L Bicarbonate Actual 36.4 H 35.7 H POC Total CO2 39 38 Base Excess 8 H 9 H O2 Saturation 100 H 100 H O2 % 100 ABG pCO2 91.1 H* 78.5 H* ABG pO2 268 H 487 H* Baudilio Test NA NA Respiration Rate 16 O2 Delivery Device NRB Mask Vent Liter Flow 15.0 Minute Volume 11.00 Vent Mode A-C Tidal Volume 500 POC PEEP 5 Blood Gas Notified Whom ED MD ED MD Blood Gas Notified Time 1219 1402 Sodium Potassium Chloride Carbon Dioxide Anion Gap BUN Creatinine Estim Creat Clear Calc Est GFR (MDRD) Af Amer Est GFR (MDRD) Non-Af BUN/Creatinine Ratio Glucose Lactic Acid 1.1 Calcium Total Bilirubin AST ALT Alkaline Phosphatase Troponin I Total Protein Albumin Globulin Albumin/Globulin Ratio POC Glucose 03/12/19 03/12/19 03/12/19 18:00 19:53 20:30 WBC RBC Hgb Hct MCV MCH MCHC RDW RDW Differential Plt Count MPV Immature Gran % (Auto) Neut % (Auto) Lymph % (Auto) [place] % (Auto) Eos % (Auto) Baso % (Auto) Absolute Neuts (auto) Absolute Lymphs (auto) Total Counted PT INR APTT Specimen Type Sample Site pH Bicarbonate Actual POC Total CO2 Base Excess O2 Saturation O2 % ABG pCO2 ABG pO2 Baudilio Test Respiration Rate O2 Delivery Device Liter Flow Minute Volume Vent Mode Tidal Volume POC PEEP Blood Gas Notified Whom Blood Gas Notified Time Sodium Potassium Chloride Carbon Dioxide Anion Gap BUN Creatinine Estim Creat Clear Calc Est GFR (MDRD) Af Amer Est GFR (MDRD) Non-Af BUN/Creatinine Ratio Glucose Lactic Acid Calcium Total Bilirubin AST ALT Alkaline Phosphatase Troponin I 0.086 H 0.129 H Total Protein Albumin Globulin Albumin/Globulin Ratio POC Glucose 278 H 03/12/19 03/12/19 03/13/19 23:29 23:35 04:40 WBC 9.6 RBC 5.33 Hgb 15.0 Hct 48.3 H MCV 90.6 MCH 28.1 MCHC 31.1 L RDW 15.3 H RDW Differential 49.8 H Plt Count 410 MPV 10.3 Immature Gran % (Auto) 0.300 Neut % (Auto) 83.0 H Lymph % (Auto) 10.3 L [place] % (Auto) 6.3 Eos % (Auto) 0.0 Baso % (Auto) 0.1 Absolute Neuts (auto) 7.9 H Absolute Lymphs (auto) 0.98 Total Counted Not Reportable PT INR APTT Specimen Type Sample Site pH Bicarbonate Actual POC Total CO2 Base Excess O2 Saturation O2 % ABG pCO2 ABG pO2 Baudilio Test Respiration Rate O2 Delivery Device Liter Flow Minute Volume Vent Mode Tidal Volume POC PEEP Blood Gas Notified Whom Blood Gas Notified Time Sodium Potassium Chloride Carbon Dioxide Anion Gap BUN Creatinine Estim Creat Clear Calc Est GFR (MDRD) Af Amer Est GFR (MDRD) Non-Af BUN/Creatinine Ratio Glucose Lactic Acid Calcium Total Bilirubin AST ALT Alkaline Phosphatase Troponin I 0.273 H Total Protein Albumin Globulin Albumin/Globulin Ratio POC Glucose 235 H 03/13/19 03/13/19 03/13/19 04:40 05:20 14:00 WBC RBC Hgb Hct MCV MCH MCHC RDW RDW Differential Plt Count MPV Immature Gran % (Auto) Neut % (Auto) Lymph % (Auto) [place] % (Auto) Eos % (Auto) Baso % (Auto) Absolute Neuts (auto) Absolute Lymphs (auto) Total Counted PT INR APTT Specimen Type Sample Site pH Bicarbonate Actual POC Total CO2 Base Excess O2 Saturation O2 % ABG pCO2 ABG pO2 Baudilio Test Respiration Rate O2 Delivery Device Liter Flow Minute Volume Vent Mode Tidal Volume POC PEEP Blood Gas Notified Whom Blood Gas Notified Time Sodium 142 Potassium 4.7 Chloride 104 Carbon Dioxide 35.0 H Anion Gap 3 L BUN 14 Creatinine 0.71 Estim Creat Clear Calc 73.92 Est GFR (MDRD) Af Amer 113 Est GFR (MDRD) Non-Af 94 BUN/Creatinine Ratio 19.7 Glucose 232 H Lactic Acid Calcium 8.4 L Total Bilirubin AST ALT Alkaline Phosphatase Troponin I Total Protein Albumin Globulin Albumin/Globulin Ratio POC Glucose 206 H 274 H 03/13/19 03/13/19 03/14/19 18:34 23:45 04:20 WBC 10.1 RBC 5.27 Hgb 14.5 Hct 47.4 H MCV 89.9 MCH 27.5 MCHC 30.6 L RDW 16.0 H RDW Differential 50.6 H Plt Count 393 MPV 10.7 Immature Gran % (Auto) 0.200 Neut % (Auto) 80.4 H Lymph % (Auto) 9.7 L [place] % (Auto) 9.7 Eos % (Auto) 0.0 Baso % (Auto) 0.0 Absolute Neuts (auto) 8.1 H Absolute Lymphs (auto) 0.98 Total Counted Not Reportable PT INR APTT Specimen Type Sample Site pH Bicarbonate Actual POC Total CO2 Base Excess O2 Saturation O2 % ABG pCO2 ABG pO2 Baudilio Test Respiration Rate O2 Delivery Device Liter Flow Minute Volume Vent Mode Tidal Volume POC PEEP Blood Gas Notified Whom Blood Gas Notified Time Sodium Potassium Chloride Carbon Dioxide Anion Gap BUN Creatinine Estim Creat Clear Calc Est GFR (MDRD) Af Amer Est GFR (MDRD) Non-Af BUN/Creatinine Ratio Glucose Lactic Acid Calcium Total Bilirubin AST ALT Alkaline Phosphatase Troponin I Total Protein Albumin Globulin Albumin/Globulin Ratio POC Glucose 193 H 209 H 03/14/19 03/14/19 04:20 05:30 WBC RBC Hgb Hct MCV MCH MCHC RDW RDW Differential Plt Count MPV Immature Gran % (Auto) Neut % (Auto) Lymph % (Auto) [place] % (Auto) Eos % (Auto) Baso % (Auto) Absolute Neuts (auto) Absolute Lymphs (auto) Total Counted PT INR APTT Specimen Type Sample Site pH Bicarbonate Actual POC Total CO2 Base Excess O2 Saturation O2 % ABG pCO2 ABG pO2 Baudilio Test Respiration Rate O2 Delivery Device Liter Flow Minute Volume Vent Mode Tidal Volume POC PEEP Blood Gas Notified Whom Blood Gas Notified Time Sodium 143 Potassium 4.6 Chloride 107 Carbon Dioxide 33.0 H Anion Gap 3 L BUN 20 H Creatinine 0.71 Estim Creat Clear Calc 73.92 Est GFR (MDRD) Af Amer 114 Est GFR (MDRD) Non-Af 94 BUN/Creatinine Ratio 28.2 H Glucose 266 H Lactic Acid Calcium 8.3 L Total Bilirubin AST ALT Alkaline Phosphatase Troponin I Total Protein Albumin Globulin Albumin/Globulin Ratio POC Glucose 232 H Microbiology 03/12/19 14:50 Sputum, Induced/Lukens Gram Stain - Final 03/12/19 14:50 Sputum, Induced/Lukens Respiratory Culture - Preliminary Appears to be normal respiratory carrie. Further studies to follow. 03/12/19 14:50 Mucosa - Nose Respiratory Panel (PCR) - Final Clinical Impression(s) from Imaging Studies Chest X-Ray 03/13/19 05:00 IMPRESSION: 1. Mild vascular congestion/edema similar accounting for differences in inflation. 2. Satisfactory position of right arm PICC. Electronically Signed: Andrea Guadalupe MD at 17:27 EDT , Service support , Medical Necessity - Tobacco Use Smoking Status: Former smoker Assessment/Plan All Active Problems (Last Reviewed 11/13/17 @ 09:36 by Danni Bahena NP-C) Acute respiratory failure with hypoxia (Acute) Elevated troponin (Acute) Acute respiratory failure with hypoxia and hypercapnia (Acute) History of tubal ligation (Resolved) History of section (Resolved) COPD with acute exacerbation (Acute) Hypertensive urgency (Ruled-out) Otitis media (Ruled-out) Tobacco abuse (Resolved) RECOMMENDATIONS: 1. Increase Seroquel, attempt transition to Precedex 2. Empiric community-acquired pneumonia antibiotics 3. Agree with bronchodilators, IV steroids 4. Spontaneous awakening and breathing trials per protocol 5. Possibly add basal insulin IMPRESSIONS: 1. Acute hypoxic respiratory failure Exact etiology is unclear at this time. Patient appears to have increasing infiltrates on the right and interstitial type pattern. Peak airway pressures appear to be improving. Patient's agitation have precluded any spontaneous awakening trial. Patient will have Seroquel increased. Patient will also be transition to Precedex therapy. We will keep steroids at the current dosing. Cultures are still pending, but viral panel came back negative. 2. Elevated troponin Clinical suspicion for perfusion mismatch and in a hypoxic state leading to current situation. We will continue to trend troponins. Patient does have significant LVH on echocardiogram. May be difficult to liberate from the ventilator as patient will be a set up for flash pulmonary edema. 3. Diabetes mellitus type 2 Patient is reportedly diabetic, but home medications are not available for review. We will place on a sliding scale insulin. Once patient gets to full tube feeds, basal insulin can be added. 4. Hypertension/morbid obesity/history of noncompliance/untreated CARSON/chronic pain syndrome Complicates care, management, recovery and prognosis. Blood pressure is not an issue at this time. TIME: 34 minutes critical care time spent addressing patient's acute hypoxic respiratory failure, diabetes mellitus, elevated troponin, review of all data and collaboration with care team (5:45 AM to 6:45 AM) Code Visit 9xxxx: [id number] Critical care first hour
--- NOTE | 2019-03-14 08:23 | PN_ITS ---
Patient Problems: Active and Suspected Problems (Last Reviewed 11/13/17 @ 09:36 by Danni Bahena NP-Shoaib) Elevated troponin (Acute) Acute respiratory failure with hypoxia and hypercapnia (Acute) Subjective: The patient is very anxious and agitated. She suddenly woke up and tries to pull out the ET tube. Low-grade fever, Tmax 99.6 but no tachycardia. Vitals/I&O's: Vital Signs Temp Pulse Resp BP Pulse Ox 99.3 F H 72 16 140/88 H 93 03/14/19 06:00 03/14/19 08:00 03/14/19 08:00 03/14/19 08:00 03/14/19 08:00 Oxygen Flow Rate (L/min) 15 Oxygen Delivery Method Mechanical Ventilator Weight: 247 lb 5.738 oz Body Mass Index (BMI) 46.4 Intake and Output for Last 24 Hours 03/12/19 03/13/19 03/14/19 23:59 23:59 23:59 Intake Total 1119 / 1119 3677 / 3677 1065 / 1065 Output Total 1850 / 1850 3000 / 3000 400 / 400 Balance -731 / -731 677 / 677 665 / 665 General: - - Intermittent agitation and anxious, even on sedatives propofol, fentanyl and Precedex HEENT: Atraumatic, PERRLA, EOMI, Normocephalic Oral: - - ET tube Neck: Supple, No JVD, Negative Carotid Bruits Lungs: No rhonchi, No wheeze, No rales, Diminished Cardiovascular: Regular rate, Normal S1, Normal S2, No murmurs Abdomen: Bowel Sounds Present, Soft, Non Tender, Non-Distended Extremities: Capillary Refill Less than 3 Seconds, Edema Musculoskeletal: No Tenderness to Palpation of Joints or Extremities, Arthritic Changes Neurological: Cranial nerves II-XII grossly intact Psych/Mental Status: Agitated, Anxious Microbiology Past 72 Hours 03/12/19 14:50 Sputum, Induced/Lukens Gram Stain - Final 03/12/19 14:50 Sputum, Induced/Lukens Respiratory Culture - Preliminary Appears to be normal respiratory carrie. Further studies to follow. 03/12/19 14:50 Mucosa - Nose Respiratory Panel (PCR) - Final Laboratory Results 03/13/19 14:00: POC Glucose 274 H 03/13/19 18:34: POC Glucose 193 H 03/13/19 23:45: POC Glucose 209 H 03/14/19 04:20: WBC 10.1, RBC 5.27, Hgb 14.5, Hct 47.4 H, MCV 89.9, MCH 27.5, MCHC 30.6 L, RDW 16.0 H, RDW Differential 50.6 H, Plt Count 393, MPV 10.7, Immature Gran % (Auto) 0.200, Neut % (Auto) 80.4 H, Lymph % (Auto) 9.7 L, Clare % (Auto) 9.7, Eos % (Auto) 0.0, Baso % (Auto) 0.0, Absolute Neuts (auto) 8.1 H, Absolute Lymphs (auto) 0.98, Total Counted Not Reportable 03/14/19 04:20: Sodium 143, Potassium 4.6, Chloride 107, Carbon Dioxide 33.0 H, Anion Gap 3 L, BUN 20 H, Creatinine 0.71, Estim Creat Clear Calc 73.92, Est GFR (MDRD) Af Amer 114, Est GFR (MDRD) Non-Af 94, BUN/Creatinine Ratio 28.2 H, Glucose 266 H, Calcium 8.3 L 03/14/19 05:30: POC Glucose 232 H Current Medications Acetaminophen (Tylenol Liquid) 650 mg GT Q6H PRN PRN PRN Reason: Fever >101 Albuterol Sulfate (Ventolin Aerosols) 2.5 mg INHALATION Q2H PRN PRN PRN Reason: SHORTNESS OF BREATH Albuterol/Ipratropium (Duoneb) 3 ml INHALATION Q4H.RT [facility] Last Admin: 03/14/19 06:53 Dose: 3 ml Bisacodyl (Dulcolax) 5 mg PO DAILY PRN PRN PRN Reason: Constipation Chlorhexidine Gluconate () 1 each TOPICAL DAILY [facility] Last Admin: 03/13/19 19:05 Dose: 1 each Chlorhexidine Gluconate () 15 ml PO BID [facility] Last Admin: 03/13/19 21:22 Dose: 15 ml Dextrose (D50w Syringe) 0 gm IV X1 PRN; Protocol PRN Reason: Hypoglycemia Glucagon () 1 mg IM .X1 PRN PRN Reason: Hypoglycemia Heparin Sodium (Porcine) (Heparin Na) 5,000 unit SC Q8 [facility] Last Admin: 03/14/19 05:33 Dose: 5,000 unit Hydralazine HCl (Apresoline Iv) 20 mg IV Q4H PRN PRN PRN Reason: SBP>160 Sodium Chloride () 1,000 mls @ 75 mls/hr IV .[id number] [facility] Last Admin: 03/13/19 19:06 Dose: 75 mls/hr Azithromycin 500 mg/ Dextrose 255 mls @ 250 mls/hr IV Q24 [facility] Stop: 03/15/19 11:02 Last Admin: 03/13/19 12:39 Dose: 250 mls/hr Famotidine 20 mg/ Sodium (Chloride) 10 mls @ 300 mls/hr IV Q12 [facility] Last Admin: 03/13/19 21:20 Dose: 300 mls/hr Sodium Chloride () 250 mls @ 15 mls/hr IV .[id number] PRN PRN Reason: SALINE FLUSH Sodium Chloride () 500 mls @ 15 mls/hr IV .[id number] PRN PRN Reason: SALINE FLUSH Fentanyl () 100 mls @ 5 mls/hr CONT INF .Q20H [facility] Last Admin: 03/14/19 06:38 Dose: 5 mls/hr Enteral Nutritional Formula (Vital Af 1.2 Nate Liquid) 1,000 mls @ 50 mls/hr GT .Q20H [facility] Last Admin: 03/13/19 15:41 Dose: 50 mls/hr Dexmedetomidine HCl 400 mcg/ (Sodium Chloride) 100 mls @ 14.03 mls/hr CONT INF .Q7H8M [facility] Last Admin: 03/14/19 06:35 Dose: 14.03 mls/hr Propofol (Diprivan) 1,000 mg in 100 mls @ 6.84 mls/hr CONT INF .Q12H [facility] Insulin Glargine (Lantus (Bk)) 10 units SC DAILY [facility] Insulin Human Lispro (Humalog Kwikpen (Bk)) 0 unit SQ Q6 [facility]; Protocol Last Admin: 03/14/19 05:34 Dose: 2 u Labetalol HCl (Trandate) 20 mg IV Q4H PRN PRN PRN Reason: SBP > 160 Last Admin: 03/12/19 22:37 Dose: 20 mg Magnesium Hydroxide (Milk Of Magnesia) 30 ml PO DAILY PRN PRN PRN Reason: Constipation Methylprednisolone (Solu-Medrol) 40 mg IV Q8 [facility] Last Admin: 03/14/19 05:34 Dose: 40 mg Ondansetron HCl (Zofran) 4 mg IV Q8H PRN PRN PRN Reason: Nausea Psyllium Hydrophilic Mucilloid (Metamucil) 1 packet PO DAILY PRN PRN PRN Reason: CONSTIPATION Quetiapine Fumarate (Seroquel) 100 mg PO BID [facility] Sodium Chloride () 10 - 40 ml IV UD PRN PRN Reason: SALINE FLUSH Last Admin: 03/14/19 05:34 Dose: 10 ml Medical Necessity - Tobacco Use Smoking Status: Former smoker Assessment/Plan All Active Problems (Last Reviewed 11/13/17 @ 09:36 by Danni Bahena NP-C) Acute respiratory failure with hypoxia (Acute) Elevated troponin (Acute) Acute respiratory failure with hypoxia and hypercapnia (Acute) History of tubal ligation (Resolved) History of section (Resolved) COPD with acute exacerbation (Acute) Hypertensive urgency (Ruled-out) Otitis media (Ruled-out) Tobacco abuse (Resolved) This is a 48-year-old female with history of asthmatic bronchitis, not on oxygen, chronic nicotine use disorder, hypertension, type II DM, morbid obesity came to ED with several weeks of ongoing shortness of breath and fatigue worsened over 1 day along with fever, cough and severe respiratory acidosis and hypoxia consistent with acute hypoxic and hypercapnic respiratory failure 1. acute hypoxic and hypercapneic respiratory failure * Secondary to COPD exacerbation along with suspicon of pneumonia * Empirically on IV azithromycin * on vent--mgmt per documentum consultant 2. AECOPD * Bronchodilators, IV steroids 3. Elevated troponin: Most probably secondary to demand ischemia or perfusion mismatch. Agitation with severe anxiety/chronic pain syndrome/untreated obstructive sleep apnea with history of morbid obesity * fentanyl and propofol. Precedex has been added * seroquel 4. DM2 uncontrolled * On Lantus and sliding scale insulin. On tube feed. Lantus dose is increased. 5. VTE proph: SQ heparin. Microbiology Past 72 Hours 03/12/19 14:50 Sputum, Induced/Lukens Gram Stain - Final 03/12/19 14:50 Sputum, Induced/Lukens Respiratory Culture - Preliminary Appears to be normal respiratory carrie. Further studies to follow. 03/12/19 14:50 Mucosa - Nose Respiratory Panel (PCR) - Final Clinical Impression(s) from Imaging Studies Chest X-Ray 03/12/19 11:53 IMPRESSION: Findings compatible with mild interstitial edema/congestive failure. No acute finding. Chest X-Ray 03/13/19 05:00 IMPRESSION: 1. Mild vascular congestion/edema similar accounting for differences in inflation. 2. Satisfactory position of right arm PICC. Active Medications Acetaminophen (Tylenol Liquid) 650 mg GT Q6H PRN PRN PRN Reason: Fever >101 Albuterol Sulfate (Ventolin Aerosols) 2.5 mg INHALATION Q2H PRN PRN PRN Reason: SHORTNESS OF BREATH Albuterol/Ipratropium (Duoneb) 3 ml INHALATION Q4H.RT [facility] Last Admin: 03/14/19 06:53 Dose: 3 ml Bisacodyl (Dulcolax) 5 mg PO DAILY PRN PRN PRN Reason: Constipation Chlorhexidine Gluconate () 1 each TOPICAL DAILY [facility] Last Admin: 03/13/19 19:05 Dose: 1 each Chlorhexidine Gluconate () 15 ml PO BID [facility] Last Admin: 03/13/19 21:22 Dose: 15 ml Dextrose (D50w Syringe) 0 gm IV X1 PRN; Protocol PRN Reason: Hypoglycemia Glucagon () 1 mg IM .X1 PRN PRN Reason: Hypoglycemia Heparin Sodium (Porcine) (Heparin Na) 5,000 unit SC Q8 [facility] Last Admin: 03/14/19 05:33 Dose: 5,000 unit Hydralazine HCl (Apresoline Iv) 20 mg IV Q4H PRN PRN PRN Reason: SBP>160 Sodium Chloride () 1,000 mls @ 75 mls/hr IV .[id number] [facility] Last Admin: 03/14/19 08:40 Dose: 75 mls/hr Azithromycin 500 mg/ Dextrose 255 mls @ 250 mls/hr IV Q24 [facility] Stop: 03/15/19 11:02 Last Admin: 03/13/19 12:39 Dose: 250 mls/hr Famotidine 20 mg/ Sodium (Chloride) 10 mls @ 300 mls/hr IV Q12 [facility] Last Admin: 03/13/19 21:20 Dose: 300 mls/hr Sodium Chloride () 250 mls @ 15 mls/hr IV .[id number] PRN PRN Reason: SALINE FLUSH Sodium Chloride () 500 mls @ 15 mls/hr IV .[id number] PRN PRN Reason: SALINE FLUSH Fentanyl () 100 mls @ 5 mls/hr CONT INF .Q20H [facility] Last Admin: 03/14/19 06:38 Dose: 5 mls/hr Enteral Nutritional Formula (Vital Af 1.2 Nate Liquid) 1,000 mls @ 50 mls/hr GT .Q20H [facility] Last Admin: 03/13/19 15:41 Dose: 50 mls/hr Dexmedetomidine HCl 400 mcg/ (Sodium Chloride) 100 mls @ 14.03 mls/hr CONT INF .Q7H8M [facility] Last Admin: 03/14/19 06:35 Dose: 14.03 mls/hr Propofol (Diprivan) 1,000 mg in 100 mls @ 6.84 mls/hr CONT INF .Q12H [facility] Insulin Glargine (Lantus (Bkc)) 10 units SC DAILY [facility] Insulin Human Lispro (Humalog Kwikpen ([facility])) 0 unit SQ Q6 [facility]; Protocol Last Admin: 03/14/19 05:34 Dose: 2 u Labetalol HCl (Trandate) 20 mg IV Q4H PRN PRN PRN Reason: SBP > 160 Last Admin: 03/12/19 22:37 Dose: 20 mg Magnesium Hydroxide (Milk Of Magnesia) 30 ml PO DAILY PRN PRN PRN Reason: Constipation Methylprednisolone (Solu-Medrol) 40 mg IV Q8 [facility] Last Admin: 03/14/19 05:34 Dose: 40 mg Ondansetron HCl (Zofran) 4 mg IV Q8H PRN PRN PRN Reason: Nausea Psyllium Hydrophilic Mucilloid (Metamucil) 1 packet PO DAILY PRN PRN PRN Reason: CONSTIPATION Quetiapine Fumarate (Seroquel) 100 mg PO BID [facility] Sodium Chloride () 10 - 40 ml IV UD PRN PRN Reason: SALINE FLUSH Last Admin: 03/14/19 05:34 Dose: 10 ml Code Visit Inpatient E&M: [id number] [facility]
[2019-03-14] MEDS: 0.9% Normal Saline 1,000 ML 75 ML IV (08:40)
[2019-03-14] MEDS: CHLORHEXIDINE GLUC 2% CLOTH 1 EACH TOWELETTE TOPICAL (10:31)
[2019-03-14] MEDS: QUEtiapine 100 MG Tablet PO ×2 (10:34→21:05)
[2019-03-14] MEDS: Chlorhexidine 15 ML PO ×2 (12:33→21:04)
[2019-03-14 17:36] LABS: Bedside Glucose 309 mg/dL (70-110)
[2019-03-14] MEDS: Vital AF 1.2 Cal Liquid 1,000 ML 50 ML GT (17:42)
[2019-03-14 17:45] LABS: Bedside Glucose 276 mg/dL (70-110)
--- NOTE | 2019-03-14 21:16 | NURSING ---
This RN at bedside administering scheduled medications, assessment complete, oral care and repositioning provided pt responding with grimacing to physical stimulus at this time. Continuing to titrate sedation medications as ordered see titration documentation. This RN leaving pt's room at 2115 when a cough is heard and ventilator begins alarming, this RN immediately re-enters room to find pt sitting up ETT and OG on pt's abd. Pt alert and states I'm sorry. B/L wrist restraints intact, sedation medications on hold, oral suctioning provided and pt being bagged by this RN. Pulse ox 100% HR 120s. Pt becoming very anxious and agitated and not tolerating being bagged. [employer] is called at 2116 for possible need for reintubation. NRB mask applied, pulse ox remains 100%. RT Melquiades, leaving bedside to get BiPAP. Pt breathing is nonlabored though audible wheezing noted. Agitation and anxiety escalating and pt taking off mask and yelling at staff members pulse ox dropping to 84% without O2. Pt able to correctly answer orientation questions. Dr. Suazo at bedside at 2124, verbal order given to give Ativan and restart Precedex. 10L High flow NC applied by RT Melquiades, d/t pt refusing BiPAP.
--- NOTE | 2019-03-14 21:29 | PCM.PN.BLA ---
Progress Note Rpid Response Note: Patient being treated for acute hypoxic and hypercapneic respiratory failure Secondary to COPD exacerbation along with suspicion of pneumonia and on Empirically on IV azithromycin; and on vent with prescedex and propofol self extubated and refused to be re-intubated. On examination patient was very anxious and flushed. Lung sounds diminished with rhonchi Tachypnea with use of accessory muscles of respiration. Talking in short sentences and appears flushed. Tachycardia Assessment Anxiety with COPD exacerbation Bipap discussed. Patient refused. Was on nonrebreather mask. Respiratory therapist requested for ABG which was granted. However, ABG will be of minimum benefit since patient is refusing mechanical ventilation and bipap Precedex resumed by nurse. Ok to continue. Ativan 2mg x1 ordered. Nursing team will update family.
[2019-03-14] MEDS: LORazepam 2 MG/ML Syringe IV (21:30)
[2019-03-14] MEDS: Albuterol 2.5 MG/3 ML VIAL.NEB. INHALATION (21:36)
[2019-03-14 22:00] LABS: Base Excess 4 mmol/L (-2 to +2); Bicarbonate 30.8 mmol/L (22-26); Blood Gas Specimen Type ART; O2 Delivery Device Nasal Can; PO2 91 mmHG (75-100); SITE L Radial; SO2 96 % (95-99); Time Given 2145; Total Carbon Dioxide 33 mmol/L; pCO2 62.7 mmHg (35-45)
[2019-03-14] MEDS: Furosemide 40 MG/4 ML Vial IV (22:16)
[2019-03-14] MEDS: Morphine 4 MG/ML Syringe IV (23:30)
[2019-03-15] VITALS (32 sets, daily range): BP systolic 133–191; BP diastolic 67–147; PULSE 69–97; RESP 12–24; TEMP 36.9–37.6; O2SAT 87–99
--- NOTE | 2019-03-15 00:10 | CPS ---
Addendum entered by Melquiades Zamarripa 03/15/19 00:15: PT SELF EXTUBATED AT APPROX 2115 IN 03/14/19 Original Note: PT SELF EXTUBATED, PT PLACED ON 12 LPM O2 HIGH FLOW CANNULA, REFUSING REINTUBATION AND BIPAP AT THIS TIME. BIPAP AND VENT ON BEDSIDE ON STANDBY
[2019-03-15] MEDS: Haloperidol Lactate 5 MG/ML Vial 1 MG IV ×3 (00:14→09:31)
[2019-03-15] MEDS: 0.9% Saline Lock 10 ML Syringe IV ×3 (00:14→05:08)
[2019-03-15] MEDS: LORazepam 2 MG/ML Syringe 1 MG IV (01:29)
--- NOTE | 2019-03-15 02:00 | CPS ---
Transcutanious CO2 monitor placed on pt. below left clavicle, skin intact, CO2 level 57.6. at 0150 hrs.
[2019-03-15] MEDS: Ipratropium/Albuterol Sulfate 3 ML AMPUL.NEB INHALATION ×6 (03:18→23:23)
--- NOTE | 2019-03-15 04:18 | CPS ---
TCO2 monitor relocated to left shoulder, skin intact, TCO2 reading 53.4
[2019-03-15] MEDS: Albuterol 2.5 MG/3 ML VIAL.NEB. INHALATION (05:00)
[2019-03-15] MEDS: Heparin Injection (Vial) 5,000 UNIT/ML VIAL 5000 UNIT SC ×3 (05:07→22:12)
[2019-03-15] MEDS: Insulin Lispro 100 UNIT/ML INSULN.PEN SQ ×4 (05:08→22:12)
[2019-03-15 05:26] LABS: Bedside Glucose 243 mg/dL (70-110)
[2019-03-15 05:36] LABS: Base Excess 9 mmol/L (-2 to +2); Bicarbonate 34.4 mmol/L (22-26); Blood Gas Specimen Type ART; O2 Delivery Device Nasal Can; PO2 93 mmHG (75-100); SITE L Radial; SO2 97 % (95-99); Time Given 525; Total Carbon Dioxide 36 mmol/L; pCO2 61.2 mmHg (35-45); pH 7.36 (7.35-7.45)
--- NOTE | 2019-03-15 06:04 | CPS ---
TCO2 reading 67.1, skin intact on left shoulder
--- NOTE | 2019-03-15 06:37 | PCM.PN.INT ---
Subjective: The patient was seen and examined at the bedside this morning. Events from the last 24 hours have been reviewed. The patient currently has a low-grade fever, but remains hemodynamically stable and is maintaining appropriate oxygen saturations on 4 L/min via nasal cannula. Per nursing report, the patient self extubated overnight at approximately 2116 hrs. She subsequently went on to refuse BiPAP and was given IV Ativan and continued on a Precedex drip to help facilitate the use of noninvasive positive pressure ventilation. For a period of time she did utilize BiPAP after receiving the aforementioned medications. She remains on Precedex as of this morning, which is being weaned. She has been notably wheezy overnight, requiring frequent bronchodilator administration. An arterial blood gas was obtained which revealed a pH of 7.36, PCO2 of 61 and PO2 of 93 on 4 L/min. When questioned, the patient reported that nothing has changed. She continues to have shortness of breath. The patient has been evaluated in the pulmonary medicine clinic on one occasion in October 2017, at which time, she reported having been diagnosed with COPD and asthma previously. There was also concern for underlying sleep disordered breathing. Orders were placed at that time for pulmonary function studies along with a sleep study. However, the patient never followed up. Objective: The patient's most recent lab work, culture data and imaging studies have all been personally reviewed. Blood and urine cultures are pending. Sputum culture appeared to be normal respiratory carrie. Respiratory viral panel was negative. Surface echocardiogram revealed moderate to severe concentric LVH with an ejection fraction of 65% and evidence of diastolic dysfunction. Right ventricular systolic pressure was estimated to be 45 mmHg. General: Alert, - - Intermittently agitated. Morbidly Obese HEENT: Atraumatic, PERRLA, Normocephalic Oral: Dry Mucosa Neck: Supple, No Nodes, Trachea Midline, - - Large neck circumference Lungs: Tachypneic, Wheezes - Appear to be most pronounced over the patient's upper airway. Cardiovascular: Regular rate, Regular Rhythm, Normal S1, Normal S2, No murmurs Abdomen: Bowel Sounds Present, Soft, Non Tender, Obese Extremities: No clubbing, No cyanosis, Edema Skin: No breakdown Musculoskeletal: No Muscle Wasting Lymphatic: No Cervical, Supraclavicular, or Inguinal Adenopathy Neurological: - - No focal deficits. Psych/Mental Status: Agitated, Anxious, Restless Vital Signs Temp Pulse Resp BP Pulse Ox 99.6 F H 70 17 155/90 H 97 03/15/19 04:00 03/15/19 06:00 03/15/19 06:00 03/15/19 06:00 03/15/19 06:00 Oxygen Flow Rate (L/min) 4 Oxygen Delivery Method Nasal Cannula Weight: 244 lb 0.827 oz Body Mass Index (BMI) 46.4 Intake and Output for Last 24 Hours 03/13/19 03/14/19 03/15/19 23:59 23:59 23:59 Intake Total 3677 / 3677 3984 / 3984 230 / 230 Output Total 3000 / 3000 2925 / 2925 950 / 950 Balance 677 / 677 1059 / 1059 -720 / -720 Labs (Last 48 Hours) 03/13/19 03/13/19 03/13/19 14:00 18:34 23:45 WBC RBC Hgb Hct MCV MCH MCHC RDW RDW Differential Plt Count MPV Immature Gran % (Auto) Neut % (Auto) Lymph % (Auto) Rich % (Auto) Eos % (Auto) Baso % (Auto) Absolute Neuts (auto) Absolute Lymphs (auto) Total Counted Specimen Type Sample Site pH Bicarbonate Actual POC Total CO2 Base Excess O2 Saturation ABG pCO2 ABG pO2 Baudilio Test O2 Delivery Device Liter Flow Blood Gas Notified Whom Blood Gas Notified Time Sodium Potassium Chloride Carbon Dioxide Anion Gap BUN Creatinine Estim Creat Clear Calc Est GFR (MDRD) Af Amer Est GFR (MDRD) Non-Af BUN/Creatinine Ratio Glucose Calcium POC Glucose 274 H 193 H 209 H 03/14/19 03/14/19 03/14/19 04:20 04:20 05:30 WBC 10.1 RBC 5.27 Hgb 14.5 Hct 47.4 H MCV 89.9 MCH 27.5 MCHC 30.6 L RDW 16.0 H RDW Differential 50.6 H Plt Count 393 MPV 10.7 Immature Gran % (Auto) 0.200 Neut % (Auto) 80.4 H Lymph % (Auto) 9.7 L Rich % (Auto) 9.7 Eos % (Auto) 0.0 Baso % (Auto) 0.0 Absolute Neuts (auto) 8.1 H Absolute Lymphs (auto) 0.98 Total Counted Not Reportable Specimen Type Sample Site pH Bicarbonate Actual POC Total CO2 Base Excess O2 Saturation ABG pCO2 ABG pO2 Baudilio Test O2 Delivery Device Liter Flow Blood Gas Notified Whom Blood Gas Notified Time Sodium 143 Potassium 4.6 Chloride 107 Carbon Dioxide 33.0 H Anion Gap 3 L BUN 20 H Creatinine 0.71 Estim Creat Clear Calc 73.92 Est GFR (MDRD) Af Amer 114 Est GFR (MDRD) Non-Af 94 BUN/Creatinine Ratio 28.2 H Glucose 266 H Calcium 8.3 L POC Glucose 232 H 03/14/19 03/14/19 03/14/19 12:32 17:39 21:53 WBC RBC Hgb Hct MCV MCH MCHC RDW RDW Differential Plt Count MPV Immature Gran % (Auto) Neut % (Auto) Lymph % (Auto) Rich % (Auto) Eos % (Auto) Baso % (Auto) Absolute Neuts (auto) Absolute Lymphs (auto) Total Counted Specimen Type ART Sample Site L Radial pH 7.30 L Bicarbonate Actual 30.8 H POC Total CO2 33 Base Excess 4 H O2 Saturation 96 ABG pCO2 62.7 H ABG pO2 91 Baudilio Test NA O2 Delivery Device Nasal Can Liter Flow 6.0 Blood Gas Notified Whom HOSP MD Blood Gas Notified Time 2145 Sodium Potassium Chloride Carbon Dioxide Anion Gap BUN Creatinine Estim Creat Clear Calc Est GFR (MDRD) Af Amer Est GFR (MDRD) Non-Af BUN/Creatinine Ratio Glucose Calcium POC Glucose 309 H 276 H 03/15/19 03/15/19 05:02 05:31 WBC RBC Hgb Hct MCV MCH MCHC RDW RDW Differential Plt Count MPV Immature Gran % (Auto) Neut % (Auto) Lymph % (Auto) Rich % (Auto) Eos % (Auto) Baso % (Auto) Absolute Neuts (auto) Absolute Lymphs (auto) Total Counted Specimen Type ART Sample Site L Radial pH 7.36 Bicarbonate Actual 34.4 H POC Total CO2 36 Base Excess 9 H O2 Saturation 97 ABG pCO2 61.2 H ABG pO2 93 Baudilio Test NA O2 Delivery Device Nasal Can Liter Flow 4.0 Blood Gas Notified Whom ICU MD Blood Gas Notified Time 525 Sodium Potassium Chloride Carbon Dioxide Anion Gap BUN Creatinine Estim Creat Clear Calc Est GFR (MDRD) Af Amer Est GFR (MDRD) Non-Af BUN/Creatinine Ratio Glucose Calcium POC Glucose 243 H Microbiology 03/12/19 14:50 Sputum, Induced/Lukens Gram Stain - Final 03/12/19 14:50 Sputum, Induced/Lukens Respiratory Culture - Final 03/12/19 20:40 Urine Catheter - Catheter Urine Culture - Preliminary Culture exhibits no growth. 03/12/19 14:50 Mucosa - Nose Respiratory Panel (PCR) - Final Clinical Impression(s) from Imaging Studies Chest X-Ray 03/12/19 11:53 IMPRESSION: Findings compatible with mild interstitial edema/congestive failure. No acute finding. Electronically Signed: Daniel Sanford MD at 12:35 EDT , Service support , Chest X-Ray 03/12/19 12:29 IMPRESSION: Endotracheal and NG tube placed with no complications. Stable cardiomegaly with hyperexpansion. Electronically Signed: Daniel Sanford MD at 13:31 EDT , Service support , KUB X-Ray 03/12/19 13:00 IMPRESSION: Endotracheal and NG tubes as described. No complications identified. Electronically Signed: Daniel Sanford MD at 13:34 EDT , Service support , Chest X-Ray 03/12/19 18:40 IMPRESSION: 1. Appropriate positioning of right-sided PICC line. 2. Unchanged appearance of cardiomegaly and mild pulmonary congestion. Electronically Signed: Emeli Flaherty MD at 19:23 EDT , Service support , Chest X-Ray 03/13/19 05:00 IMPRESSION: 1. Mild vascular congestion/edema similar accounting for differences in inflation. 2. Satisfactory position of right arm PICC. Electronically Signed: Andrea Guadalupe MD at 17:27 EDT , Service support , Medical Necessity - Tobacco Use Smoking Status: Former smoker Assessment/Plan All Active Problems (Last Reviewed 11/13/17 @ 09:36 by Danni Bahena NP-C) Acute respiratory failure with hypoxia (Acute) Elevated troponin (Acute) Acute respiratory failure with hypoxia and hypercapnia (Acute) History of tubal ligation (Resolved) History of section (Resolved) COPD with acute exacerbation (Acute) Hypertensive urgency (Ruled-out) Otitis media (Ruled-out) Tobacco abuse (Resolved) RECOMMENDATIONS: 1. Complete 7 days of empiric antimicrobials. 2. Continue scheduled bronchodilators. 3. Given the patient's significant psychosis that she experiences from the use of corticosteroids, recommend discontinuation of IV methylprednisone. 4. Start scheduled budesonide twice daily. 5. Wean Precedex off completely. Discontinue IV Ativan. 6. Continue Seroquel. 7. Swallowing evaluation once mentation has improved. 8. Wean supplemental oxygen to maintain saturations at or above 90%. IMPRESSIONS: 1. Acute hypoxemic respiratory failure The patient has a reported history of both COPD and asthma. Although she was seen initially in the pulmonary medicine clinic, the patient never followed up, nor completed any of her testing. She is currently on treatment for community-acquired pneumonia. Although the patient did self extubate, she is currently maintaining appropriate oxygen saturations on 4 L/min. She does have an extensive smoking history and continues to smoke 1 pack of cigarettes daily. While it is reasonable to continue treatment for an exacerbation, I would recommend discontinuation of systemic corticosteroids, given the patient's significant psychosis. In its place, will start twice daily budesonide. Recommend discontinuation of Precedex and IV Ativan. Continue Seroquel. Wean supplemental oxygen to maintain saturations at or above 90%. Swallow evaluation can be performed once the patient's mentation has improved. 2. Heart failure with preserved ejection fraction/pulmonary hypertension Can consider low-dose diuretic therapy, if the patient is unable to be weaned from supplemental oxygen. 3. Clinical concern for underlying sleep disordered breathing Recommend empiric use of BiPAP therapy while sleeping. The patient needs to follow-up with the pulmonary medicine clinic so that a diagnostic polysomnogram can be completed. 4. Continuous tobacco dependency/diabetes mellitus/morbid obesity/history of medical noncompliance/chronic pain syndrome Complicates care, management, recovery and prognosis. Home antihypertensive regimen can be restarted once the patient's swallow evaluation has been completed. Nicotine replacement therapy can be offered to the patient while she is admitted to the hospital. This note was generated with [employer] dictation software. It may contain incorrect words, spelling, and punctuation that were not noted in checking the note before signing. Code Visit Inpatient E&M: 02170 Subs Hosp L3
--- NOTE | 2019-03-15 06:44 | PN_ITS ---
Subjective: The patient was seen and examined at the bedside this morning. Events from the last 24 hours have been reviewed. The patient currently has a low-grade fever, but remains hemodynamically stable and is maintaining appropriate oxygen saturations on 4 L/min via nasal cannula. Per nursing report, the patient self extubated overnight at approximately 2116 hrs. She subsequently went on to refuse BiPAP and was given IV Ativan and continued on a Precedex drip to help facilitate the use of noninvasive positive pressure ventilation. For a period of time she did utilize BiPAP after receiving the aforementioned medications. She remains on Precedex as of this morning, which is being weaned. She has been notably wheezy overnight, requiring frequent bronchodilator administration. An arterial blood gas was obtained which revealed a pH of 7.36, PCO2 of 61 and PO2 of 93 on 4 L/min. When questioned, the patient reported that nothing has changed. She continues to have shortness of breath. The patient has been evaluated in the pulmonary medicine clinic on one occasion in October 2017, at which time, she reported having been diagnosed with COPD and asthma previously. There was also concern for underlying sleep disordered breathing. Orders were placed at that time for pulmonary function studies along with a sleep study. However, the patient never followed up. Objective: The patient's most recent lab work, culture data and imaging studies have all been personally reviewed. Blood and urine cultures are pending. Sputum culture appeared to be normal respiratory carrie. Respiratory viral panel was negative. Surface echocardiogram revealed moderate to severe concentric LVH with an ejection fraction of 65% and evidence of diastolic dysfunction. Right ventricular systolic pressure was estimated to be 45 mmHg. General: Alert, - - Intermittently agitated. Morbidly Obese HEENT: Atraumatic, PERRLA, Normocephalic Oral: Dry Mucosa Neck: Supple, No Nodes, Trachea Midline, - - Large neck circumference Lungs: Tachypneic, Wheezes - Appear to be most pronounced over the patient's upper airway. Cardiovascular: Regular rate, Regular Rhythm, Normal S1, Normal S2, No murmurs Abdomen: Bowel Sounds Present, Soft, Non Tender, Obese Extremities: No clubbing, No cyanosis, Edema Skin: No breakdown Musculoskeletal: No Muscle Wasting Lymphatic: No Cervical, Supraclavicular, or Inguinal Adenopathy Neurological: - - No focal deficits. Psych/Mental Status: Agitated, Anxious, Restless Vital Signs Temp Pulse Resp BP Pulse Ox 99.6 F H 70 17 155/90 H 97 03/15/19 04:00 03/15/19 06:00 03/15/19 06:00 03/15/19 06:00 03/15/19 06:00 Oxygen Flow Rate (L/min) 4 Oxygen Delivery Method Nasal Cannula Weight: 244 lb 0.827 oz Body Mass Index (BMI) 46.4 Intake and Output for Last 24 Hours 03/13/19 03/14/19 03/15/19 23:59 23:59 23:59 Intake Total 3677 / 3677 3984 / 3984 230 / 230 Output Total 3000 / 3000 2925 / 2925 950 / 950 Balance 677 / 677 1059 / 1059 -720 / -720 Labs (Last 48 Hours) 03/13/19 03/13/19 03/13/19 14:00 18:34 23:45 WBC RBC Hgb Hct MCV MCH MCHC RDW RDW Differential Plt Count MPV Immature Gran % (Auto) Neut % (Auto) Lymph % (Auto) [place] % (Auto) Eos % (Auto) Baso % (Auto) Absolute Neuts (auto) Absolute Lymphs (auto) Total Counted Specimen Type Sample Site pH Bicarbonate Actual POC Total CO2 Base Excess O2 Saturation ABG pCO2 ABG pO2 Baudilio Test O2 Delivery Device Liter Flow Blood Gas Notified Whom Blood Gas Notified Time Sodium Potassium Chloride Carbon Dioxide Anion Gap BUN Creatinine Estim Creat Clear Calc Est GFR (MDRD) Af Amer Est GFR (MDRD) Non-Af BUN/Creatinine Ratio Glucose Calcium POC Glucose 274 H 193 H 209 H 03/14/19 03/14/19 03/14/19 04:20 04:20 05:30 WBC 10.1 RBC 5.27 Hgb 14.5 Hct 47.4 H MCV 89.9 MCH 27.5 MCHC 30.6 L RDW 16.0 H RDW Differential 50.6 H Plt Count 393 MPV 10.7 Immature Gran % (Auto) 0.200 Neut % (Auto) 80.4 H Lymph % (Auto) 9.7 L [place] % (Auto) 9.7 Eos % (Auto) 0.0 Baso % (Auto) 0.0 Absolute Neuts (auto) 8.1 H Absolute Lymphs (auto) 0.98 Total Counted Not Reportable Specimen Type Sample Site pH Bicarbonate Actual POC Total CO2 Base Excess O2 Saturation ABG pCO2 ABG pO2 Baudilio Test O2 Delivery Device Liter Flow Blood Gas Notified Whom Blood Gas Notified Time Sodium 143 Potassium 4.6 Chloride 107 Carbon Dioxide 33.0 H Anion Gap 3 L BUN 20 H Creatinine 0.71 Estim Creat Clear Calc 73.92 Est GFR (MDRD) Af Amer 114 Est GFR (MDRD) Non-Af 94 BUN/Creatinine Ratio 28.2 H Glucose 266 H Calcium 8.3 L POC Glucose 232 H 03/14/19 03/14/19 03/14/19 12:32 17:39 21:53 WBC RBC Hgb Hct MCV MCH MCHC RDW RDW Differential Plt Count MPV Immature Gran % (Auto) Neut % (Auto) Lymph % (Auto) [place] % (Auto) Eos % (Auto) Baso % (Auto) Absolute Neuts (auto) Absolute Lymphs (auto) Total Counted Specimen Type ART Sample Site L Radial pH 7.30 L Bicarbonate Actual 30.8 H POC Total CO2 33 Base Excess 4 H O2 Saturation 96 ABG pCO2 62.7 H ABG pO2 91 Baudilio Test NA O2 Delivery Device Nasal Can Liter Flow 6.0 Blood Gas Notified Whom HOSP MD Blood Gas Notified Time 2145 Sodium Potassium Chloride Carbon Dioxide Anion Gap BUN Creatinine Estim Creat Clear Calc Est GFR (MDRD) Af Amer Est GFR (MDRD) Non-Af BUN/Creatinine Ratio Glucose Calcium POC Glucose 309 H 276 H 03/15/19 03/15/19 05:02 05:31 WBC RBC Hgb Hct MCV MCH MCHC RDW RDW Differential Plt Count MPV Immature Gran % (Auto) Neut % (Auto) Lymph % (Auto) [place] % (Auto) Eos % (Auto) Baso % (Auto) Absolute Neuts (auto) Absolute Lymphs (auto) Total Counted Specimen Type ART Sample Site L Radial pH 7.36 Bicarbonate Actual 34.4 H POC Total CO2 36 Base Excess 9 H O2 Saturation 97 ABG pCO2 61.2 H ABG pO2 93 Baudilio Test NA O2 Delivery Device Nasal Can Liter Flow 4.0 Blood Gas Notified Whom ICU MD Blood Gas Notified Time 525 Sodium Potassium Chloride Carbon Dioxide Anion Gap BUN Creatinine Estim Creat Clear Calc Est GFR (MDRD) Af Amer Est GFR (MDRD) Non-Af BUN/Creatinine Ratio Glucose Calcium POC Glucose 243 H Microbiology 03/12/19 14:50 Sputum, Induced/Lukens Gram Stain - Final 03/12/19 14:50 Sputum, Induced/Lukens Respiratory Culture - Final 03/12/19 20:40 Urine Catheter - Catheter Urine Culture - Preliminary Culture exhibits no growth. 03/12/19 14:50 Mucosa - Nose Respiratory Panel (PCR) - Final Clinical Impression(s) from Imaging Studies Chest X-Ray 03/12/19 11:53 IMPRESSION: Findings compatible with mild interstitial edema/congestive failure. No acute finding. Electronically Signed: Daniel Sanford MD at 12:35 EDT , Service support , Chest X-Ray 03/12/19 12:29 IMPRESSION: Endotracheal and NG tube placed with no complications. Stable cardiomegaly with hyperexpansion. Electronically Signed: Daniel Sanford MD at 13:31 EDT , Service support , KUB X-Ray 03/12/19 13:00 IMPRESSION: Endotracheal and NG tubes as described. No complications identified. Electronically Signed: Daniel Sanford MD at 13:34 EDT , Service support , Chest X-Ray 03/12/19 18:40 IMPRESSION: 1. Appropriate positioning of right-sided PICC line. 2. Unchanged appearance of cardiomegaly and mild pulmonary congestion. Electronically Signed: Emeli Flaherty MD at 19:23 EDT , Service support , Chest X-Ray 03/13/19 05:00 IMPRESSION: 1. Mild vascular congestion/edema similar accounting for differences in inflation. 2. Satisfactory position of right arm PICC. Electronically Signed: Andrea Guadalupe MD at 17:27 EDT , Service support , Medical Necessity - Tobacco Use Smoking Status: Former smoker Assessment/Plan All Active Problems (Last Reviewed 11/13/17 @ 09:36 by Danni Bahena NP-C) Acute respiratory failure with hypoxia (Acute) Elevated troponin (Acute) Acute respiratory failure with hypoxia and hypercapnia (Acute) History of tubal ligation (Resolved) History of section (Resolved) COPD with acute exacerbation (Acute) Hypertensive urgency (Ruled-out) Otitis media (Ruled-out) Tobacco abuse (Resolved) RECOMMENDATIONS: 1. Complete 7 days of empiric antimicrobials. 2. Continue scheduled bronchodilators. 3. Given the patient's significant psychosis that she experiences from the use of corticosteroids, recommend discontinuation of IV methylprednisone. 4. Start scheduled budesonide twice daily. 5. Wean Precedex off completely. Discontinue IV Ativan. 6. Continue Seroquel. 7. Swallowing evaluation once mentation has improved. 8. Wean supplemental oxygen to maintain saturations at or above 90%. IMPRESSIONS: 1. Acute hypoxemic respiratory failure The patient has a reported history of both COPD and asthma. Although she was seen initially in the pulmonary medicine clinic, the patient never followed up, nor completed any of her testing. She is currently on treatment for community- acquired pneumonia. Although the patient did self extubate, she is currently maintaining appropriate oxygen saturations on 4 L/min. She does have an extensive smoking history and continues to smoke 1 pack of cigarettes daily. While it is reasonable to continue treatment for an exacerbation, I would recommend discontinuation of systemic corticosteroids, given the patient's significant psychosis. In its place, will start twice daily budesonide. Recommend discontinuation of Precedex and IV Ativan. Continue Seroquel. Wean supplemental oxygen to maintain saturations at or above 90%. Swallow evaluation can be performed once the patient's mentation has improved. 2. Heart failure with preserved ejection fraction/pulmonary hypertension Can consider low-dose diuretic therapy, if the patient is unable to be weaned from supplemental oxygen. 3. Clinical concern for underlying sleep disordered breathing Recommend empiric use of BiPAP therapy while sleeping. The patient needs to follow-up with the pulmonary medicine clinic so that a diagnostic polysomnogram can be completed. 4. Continuous tobacco dependency/diabetes mellitus/morbid obesity/history of medical noncompliance/chronic pain syndrome Complicates care, management, recovery and prognosis. Home antihypertensive regimen can be restarted once the patient's swallow evaluation has been completed. Nicotine replacement therapy can be offered to the patient while she is admitted to the hospital. This note was generated with [employer] dictation software. It may contain incorrect words, spelling, and punctuation that were not noted in checking the note before signing. Code Visit Inpatient E&M: 51617 Subs Hosp L3
--- NOTE | 2019-03-15 07:26 | CPS ---
Pt inappropriate, cursing and yelling, hard to understand. severe wheezing, Rn did part of aerosol holding mask in front of pt's face, pt had torn mask off.
--- NOTE | 2019-03-15 07:42 | PCM.PN.HOSP ---
Patient Problems: Active and Suspected Problems (Last Reviewed 11/13/17 @ 09:36 by Danni Bahena NP-Shoaib) Elevated troponin (Acute) Acute respiratory failure with hypoxia and hypercapnia (Acute) Subjective: Patient self extubated last night. Patient is on Precedex drip and also received IV Ativan last night. Heart rate in 70s. Patient is having wheezing seems more upper airway wheezing. Low pitch, raspy voice. weak cough reflex Vitals/I&O's: Vital Signs Temp Pulse Resp BP Pulse Ox 99.6 F H 74 19 H 166/104 H 95 03/15/19 04:00 03/15/19 07:00 03/15/19 07:00 03/15/19 07:00 03/15/19 07:00 Oxygen Flow Rate (L/min) 4 Oxygen Delivery Method Nasal Cannula Weight: 244 lb 0.827 oz Body Mass Index (BMI) 46.4 Intake and Output for Last 24 Hours 03/13/19 03/14/19 03/15/19 23:59 23:59 23:59 Intake Total 3677 / 3677 3984 / 3984 230 / 230 Output Total 3000 / 3000 2925 / 2925 950 / 950 Balance 677 / 677 1059 / 1059 -720 / -720 General: Lethargic, - HEENT: Atraumatic, PERRLA, EOMI, Normocephalic Oral: - Neck: Supple, No JVD, Negative Carotid Bruits Lungs: Diminished, Wheezes, - - Upper airway wheezing sound Cardiovascular: Regular rate, Regular Rhythm, Normal S1, Normal S2, No murmurs Abdomen: Bowel Sounds Present, Soft, Non Tender, Non-Distended Extremities: Capillary Refill Less than 3 Seconds, Edema Skin: No rashes, No breakdown Musculoskeletal: Arthritic Changes Lymphatic: No Cervical, Supraclavicular, or Inguinal Adenopathy Neurological: Cranial nerves II-XII grossly intact, Neuro grossly intact Psych/Mental Status: Agitated, Flat Affect, Depressed Microbiology Past 72 Hours 03/12/19 20:30 Blood Culture (Wb) - Other Blood Culture - Preliminary No growth in 48 hours. 03/12/19 20:30 Blood Culture (Wb) - Pic Blood Culture - Preliminary No growth in 48 hours. 03/12/19 14:50 Sputum, Induced/Lukens Gram Stain - Final 03/12/19 14:50 Sputum, Induced/Lukens Respiratory Culture - Final 03/12/19 20:40 Urine Catheter - Catheter Urine Culture - Preliminary Culture exhibits no growth. 03/12/19 14:50 Mucosa - Nose Respiratory Panel (PCR) - Final Laboratory Results 03/14/19 12:32: POC Glucose 309 H 03/14/19 17:39: POC Glucose 276 H 03/14/19 21:53: Specimen Type ART, Sample Site L Radial, pH 7.30 L, Bicarbonate Actual 30.8 H, POC Total CO2 33, Base Excess 4 H, O2 Saturation 96, ABG pCO2 62.7 H, ABG pO2 91, Baudilio Test NA, O2 Delivery Device Nasal Can, Liter Flow 6.0, Blood Gas Notified Whom HOSP , Blood Gas Notified Time 214403/15/19 05:02: POC Glucose 243 H 03/15/19 05:31: Specimen Type ART, Sample Site L Radial, pH 7.36, Bicarbonate Actual 34.4 H, POC Total CO2 36, Base Excess 9 H, O2 Saturation 97, ABG pCO2 61.2 H, ABG pO2 93, Baudilio Test NA, O2 Delivery Device Nasal Can, Liter Flow 4.0, Blood Gas Notified Whom ICU MD, Blood Gas Notified Time 525 Current Medications Acetaminophen (Tylenol Liquid) 650 mg GT Q6H PRN PRN PRN Reason: Fever >101 Albuterol Sulfate (Ventolin Aerosols) 2.5 mg INHALATION Q2H PRN PRN PRN Reason: SHORTNESS OF BREATH Last Admin: 03/15/19 05:00 Dose: 2.5 mg Albuterol/Ipratropium (Duoneb) 3 ml INHALATION Q4H.RT [facility] Last Admin: 03/15/19 07:00 Dose: 3 ml Bisacodyl (Dulcolax) 5 mg PO DAILY PRN PRN PRN Reason: Constipation Chlorhexidine Gluconate () 1 each TOPICAL DAILY [facility] Last Admin: 03/14/19 10:31 Dose: 1 each Dextrose (D50w Syringe) 0 gm IV X1 PRN; Protocol PRN Reason: Hypoglycemia Glucagon () 1 mg IM .X1 PRN PRN Reason: Hypoglycemia Haloperidol Lactate (Haldol) 1 mg IV Q3H PRN PRN PRN Reason: AGITATION Last Admin: 03/15/19 03:42 Dose: 1 mg Heparin Sodium (Porcine) (Heparin Na) 5,000 unit SC Q8 [facility] Last Admin: 03/15/19 05:07 Dose: 5,000 unit Hydralazine HCl (Apresoline Iv) 20 mg IV Q4H PRN PRN PRN Reason: SBP>160 Sodium Chloride () 1,000 mls @ 75 mls/hr IV .[id number] [facility] Last Admin: 03/15/19 01:12 Dose: Not Given Azithromycin 500 mg/ Dextrose 255 mls @ 250 mls/hr IV Q24 [facility] Stop: 03/15/19 11:02 Last Admin: 03/14/19 10:31 Dose: 250 mls/hr Famotidine 20 mg/ Sodium (Chloride) 10 mls @ 300 mls/hr IV Q12 [facility] Last Admin: 03/14/19 21:05 Dose: 300 mls/hr Sodium Chloride () 250 mls @ 15 mls/hr IV .[id number] PRN PRN Reason: SALINE FLUSH Sodium Chloride () 500 mls @ 15 mls/hr IV .[id number] PRN PRN Reason: SALINE FLUSH Dexmedetomidine HCl 1,000 mcg/ (Sodium Chloride) 250 mls @ 14.03 mls/hr CONT INF .[id number] [facility] Last Admin: 03/15/19 05:07 Dose: 14.03 mls/hr Insulin Glargine (Lantus (Bkc)) 18 units SC DAILY [facility] Last Admin: 03/14/19 10:43 Dose: 18 u Insulin Human Lispro (Humalog Kwikpen (Bkc)) 0 unit SQ Q6 [facility]; Protocol Last Admin: 03/15/19 05:08 Dose: 2 u Labetalol HCl (Trandate) 20 mg IV Q4H PRN PRN PRN Reason: SBP > 160 Last Admin: 03/15/19 03:20 Dose: 20 mg Lorazepam (Ativan) 1 mg IV Q3H PRN PRN PRN Reason: AGITATION Last Admin: 03/15/19 01:29 Dose: 1 mg Magnesium Hydroxide (Milk Of Magnesia) 30 ml PO DAILY PRN PRN PRN Reason: Constipation Methylprednisolone (Solu-Medrol) 40 mg IV Q8 [facility] Last Admin: 03/15/19 05:07 Dose: 40 mg Ondansetron HCl (Zofran) 4 mg IV Q8H PRN PRN PRN Reason: Nausea Psyllium Hydrophilic Mucilloid (Metamucil) 1 packet PO DAILY PRN PRN PRN Reason: CONSTIPATION Quetiapine Fumarate (Seroquel) 100 mg PO BID [facility] Last Admin: 03/14/19 21:05 Dose: 100 mg Sodium Chloride () 10 - 40 ml IV UD PRN PRN Reason: SALINE FLUSH Last Admin: 03/15/19 05:08 Dose: 10 ml Medical Necessity - Tobacco Use Smoking Status: Former smoker Assessment/Plan All Active Problems (Last Reviewed 11/13/17 @ 09:36 by Danni Bahena, CHIQUIS-C) Acute respiratory failure with hypoxia (Acute) Elevated troponin (Acute) Acute respiratory failure with hypoxia and hypercapnia (Acute) History of tubal ligation (Resolved) History of section (Resolved) COPD with acute exacerbation (Acute) Hypertensive urgency (Ruled-out) Otitis media (Ruled-out) Tobacco abuse (Resolved) This is a 48-year-old female with history of asthmatic bronchitis, not on oxygen, chronic nicotine use disorder, hypertension, type II DM, morbid obesity came to ED with several weeks of ongoing shortness of breath and fatigue worsened over 1 day along with fever, cough and severe respiratory acidosis and hypoxia consistent with acute hypoxic and hypercapnic respiratory failure 1. acute hypoxic and hypercapneic respiratory failure Secondary to COPD exacerbation Azithromycin is discontinued after 3 days on vent--mgmt per mig welder 2. AECOPD Bronchodilators IV steroids discontinued and started on Pulmicort nebulization. Pulmonary clinic in 10/2017 and PFT and sleep study were ordered but patient never followed. 3. Elevated troponin: Most probably secondary to demand ischemia or perfusion mismatch. Echo was done and showed heart failure with preserved EF. EF 65%, impaired relaxation of LV. No regional wall motion abnormalities. Mildly dilated RV. Normal left atrium normal left atrium. RVSP 45 mmHg Agitation with severe anxiety/chronic pain syndrome/untreated obstructive sleep apnea with history of morbid obesity Slowly taper off Precedex drip. seroquel 4. DM2 uncontrolled On Lantus and sliding scale insulin. On tube feed. Lantus dose is increased. 5. VTE proph: SQ heparin. Microbiology Past 72 Hours 03/12/19 14:50 Sputum, Induced/Lukens Gram Stain - Final 03/12/19 14:50 Sputum, Induced/Lukens Respiratory Culture - Preliminary Appears to be normal respiratory carrie. Further studies to follow. 03/12/19 14:50 Mucosa - Nose Respiratory Panel (PCR) - Final Clinical Impression(s) from Imaging Studies Chest X-Ray 03/12/19 11:53 IMPRESSION: Findings compatible with mild interstitial edema/congestive failure. No acute finding. Chest X-Ray 03/13/19 05:00 IMPRESSION: 1. Mild vascular congestion/edema similar accounting for differences in inflation. 2. Satisfactory position of right arm PICC. Microbiology Past 72 Hours 03/12/19 20:30 Blood Culture (Wb) - Other Blood Culture - Preliminary No growth in 48 hours. 03/12/19 20:30 Blood Culture (Wb) - Pic Blood Culture - Preliminary No growth in 48 hours. 03/12/19 14:50 Sputum, Induced/Lukens Gram Stain - Final 03/12/19 14:50 Sputum, Induced/Lukens Respiratory Culture - Final 03/12/19 20:40 Urine Catheter - Catheter Urine Culture - Preliminary Culture exhibits no growth. 03/12/19 14:50 Mucosa - Nose Respiratory Panel (PCR) - Final Laboratory Results 03/14/19 12:32: POC Glucose 309 H 03/14/19 17:39: POC Glucose 276 H 03/14/19 21:53: Specimen Type ART, Sample Site L Radial, pH 7.30 L, Bicarbonate Actual 30.8 H, POC Total CO2 33, Base Excess 4 H, O2 Saturation 96, ABG pCO2 62.7 H, ABG pO2 91, Baudilio Test NA, O2 Delivery Device Nasal Can, Liter Flow 6.0, Blood Gas Notified Whom HOSP , Blood Gas Notified Time 214403/15/19 05:02: POC Glucose 243 H 03/15/19 05:31: Specimen Type ART, Sample Site L Radial, pH 7.36, Bicarbonate Actual 34.4 H, POC Total CO2 36, Base Excess 9 H, O2 Saturation 97, ABG pCO2 61.2 H, ABG pO2 93, Baudilio Test NA, O2 Delivery Device Nasal Can, Liter Flow 4.0, Blood Gas Notified Whom ICU MD, Blood Gas Notified Time 525 Active Medications Acetaminophen (Tylenol Liquid) 650 mg GT Q6H PRN PRN PRN Reason: Fever >101 Albuterol Sulfate (Ventolin Aerosols) 2.5 mg INHALATION Q2H PRN PRN PRN Reason: SHORTNESS OF BREATH Last Admin: 03/15/19 05:00 Dose: 2.5 mg Albuterol/Ipratropium (Duoneb) 3 ml INHALATION Q4H.RT [facility] Last Admin: 03/15/19 10:53 Dose: 3 ml Bisacodyl (Dulcolax) 5 mg PO DAILY PRN PRN PRN Reason: Constipation Budesonide (Pulmicort Aerosol) 0.5 mg INHALATION BID.RT [facility] Chlorhexidine Gluconate () 1 each TOPICAL DAILY [facility] Last Admin: 03/15/19 09:40 Dose: 1 each Dextrose (D50w Syringe) 0 gm IV X1 PRN; Protocol PRN Reason: Hypoglycemia Glucagon () 1 mg IM .X1 PRN PRN Reason: Hypoglycemia Haloperidol Lactate (Haldol) 1 mg IV Q3H PRN PRN PRN Reason: AGITATION Last Admin: 03/15/19 09:31 Dose: 1 mg Heparin Sodium (Porcine) (Heparin Na) 5,000 unit SC Q8 [facility] Last Admin: 03/15/19 14:32 Dose: 5,000 unit Hydralazine HCl (Apresoline Iv) 20 mg IV Q4H PRN PRN PRN Reason: SBP>160 Famotidine 20 mg/ Sodium (Chloride) 10 mls @ 300 mls/hr IV Q12 [facility] Last Admin: 03/15/19 09:43 Dose: 300 mls/hr Sodium Chloride () 250 mls @ 15 mls/hr IV .[id number] PRN PRN Reason: SALINE FLUSH Sodium Chloride () 500 mls @ 15 mls/hr IV .[id number] PRN PRN Reason: SALINE FLUSH Insulin Glargine (Lantus (Bkc)) 18 units SC DAILY@0600 [facility] Insulin Human Lispro (Humalog Kwikpen ([facility])) 0 unit SQ Q6 [facility]; Protocol Last Admin: 03/15/19 11:46 Dose: 4 u Labetalol HCl (Trandate) 20 mg IV Q4H PRN PRN PRN Reason: SBP > 160 Last Admin: 03/15/19 03:20 Dose: 20 mg Magnesium Hydroxide (Milk Of Magnesia) 30 ml PO DAILY PRN PRN PRN Reason: Constipation Ondansetron HCl (Zofran) 4 mg IV Q8H PRN PRN PRN Reason: Nausea Quetiapine Fumarate (Seroquel) 100 mg PO BID [facility] Last Admin: 03/15/19 09:43 Dose: Not Given Sodium Chloride () 10 - 40 ml IV UD PRN PRN Reason: SALINE FLUSH Last Admin: 03/15/19 05:08 Dose: 10 ml Code Visit Inpatient E&M: 97474 Subs Hosp L3
--- NOTE | 2019-03-15 07:47 | PN_ITS ---
Patient Problems: Active and Suspected Problems (Last Reviewed 11/13/17 @ 09:36 by Danni Bahena NP-Shoaib) Elevated troponin (Acute) Acute respiratory failure with hypoxia and hypercapnia (Acute) Subjective: Patient self extubated last night. Patient is on Precedex drip and also received IV Ativan last night. Heart rate in 70s. Patient is having wheezing seems more upper airway wheezing. Low pitch, raspy voice. weak cough reflex Vitals/I&O's: Vital Signs Temp Pulse Resp BP Pulse Ox 99.6 F H 74 19 H 166/104 H 95 03/15/19 04:00 03/15/19 07:00 03/15/19 07:00 03/15/19 07:00 03/15/19 07:00 Oxygen Flow Rate (L/min) 4 Oxygen Delivery Method Nasal Cannula Weight: 244 lb 0.827 oz Body Mass Index (BMI) 46.4 Intake and Output for Last 24 Hours 03/13/19 03/14/19 03/15/19 23:59 23:59 23:59 Intake Total 3677 / 3677 3984 / 3984 230 / 230 Output Total 3000 / 3000 2925 / 2925 950 / 950 Balance 677 / 677 1059 / 1059 -720 / -720 General: Lethargic, - HEENT: Atraumatic, PERRLA, EOMI, Normocephalic Oral: - Neck: Supple, No JVD, Negative Carotid Bruits Lungs: Diminished, Wheezes, - - Upper airway wheezing sound Cardiovascular: Regular rate, Regular Rhythm, Normal S1, Normal S2, No murmurs Abdomen: Bowel Sounds Present, Soft, Non Tender, Non-Distended Extremities: Capillary Refill Less than 3 Seconds, Edema Skin: No rashes, No breakdown Musculoskeletal: Arthritic Changes Lymphatic: No Cervical, Supraclavicular, or Inguinal Adenopathy Neurological: Cranial nerves II-XII grossly intact, Neuro grossly intact Psych/Mental Status: Agitated, Flat Affect, Depressed Microbiology Past 72 Hours 03/12/19 20:30 Blood Culture (Wb) - Other Blood Culture - Preliminary No growth in 48 hours. 03/12/19 20:30 Blood Culture (Wb) - Pic Blood Culture - Preliminary No growth in 48 hours. 03/12/19 14:50 Sputum, Induced/Lukens Gram Stain - Final 03/12/19 14:50 Sputum, Induced/Lukens Respiratory Culture - Final 03/12/19 20:40 Urine Catheter - Catheter Urine Culture - Preliminary Culture exhibits no growth. 03/12/19 14:50 Mucosa - Nose Respiratory Panel (PCR) - Final Laboratory Results 03/14/19 12:32: POC Glucose 309 H 03/14/19 17:39: POC Glucose 276 H 03/14/19 21:53: Specimen Type ART, Sample Site L Radial, pH 7.30 L, Bicarbonate Actual 30.8 H, POC Total CO2 33, Base Excess 4 H, O2 Saturation 96, ABG pCO2 62.7 H, ABG pO2 91, Baudilio Test NA, O2 Delivery Device Nasal Can, Liter Flow 6.0, Blood Gas Notified Whom HOSP , Blood Gas Notified Time 214403/15/19 05:02: POC Glucose 243 H 03/15/19 05:31: Specimen Type ART, Sample Site L Radial, pH 7.36, Bicarbonate Actual 34.4 H, POC Total CO2 36, Base Excess 9 H, O2 Saturation 97, ABG pCO2 61.2 H, ABG pO2 93, Baudilio Test NA, O2 Delivery Device Nasal Can, Liter Flow 4.0, Blood Gas Notified Whom ICU MD, Blood Gas Notified Time 525 Current Medications Acetaminophen (Tylenol Liquid) 650 mg GT Q6H PRN PRN PRN Reason: Fever >101 Albuterol Sulfate (Ventolin Aerosols) 2.5 mg INHALATION Q2H PRN PRN PRN Reason: SHORTNESS OF BREATH Last Admin: 03/15/19 05:00 Dose: 2.5 mg Albuterol/Ipratropium (Duoneb) 3 ml INHALATION Q4H.RT [place] Last Admin: 03/15/19 07:00 Dose: 3 ml Bisacodyl (Dulcolax) 5 mg PO DAILY PRN PRN PRN Reason: Constipation Chlorhexidine Gluconate () 1 each TOPICAL DAILY [place] Last Admin: 03/14/19 10:31 Dose: 1 each Dextrose (D50w Syringe) 0 gm IV X1 PRN; Protocol PRN Reason: Hypoglycemia Glucagon () 1 mg IM .X1 PRN PRN Reason: Hypoglycemia Haloperidol Lactate (Haldol) 1 mg IV Q3H PRN PRN PRN Reason: AGITATION Last Admin: 03/15/19 03:42 Dose: 1 mg Heparin Sodium (Porcine) (Heparin Na) 5,000 unit SC Q8 [facility] Last Admin: 03/15/19 05:07 Dose: 5,000 unit Hydralazine HCl (Apresoline Iv) 20 mg IV Q4H PRN PRN PRN Reason: SBP>160 Sodium Chloride () 1,000 mls @ 75 mls/hr IV .[id number] [facility] Last Admin: 03/15/19 01:12 Dose: Not Given Azithromycin 500 mg/ Dextrose 255 mls @ 250 mls/hr IV Q24 [facility] Stop: 03/15/19 11:02 Last Admin: 03/14/19 10:31 Dose: 250 mls/hr Famotidine 20 mg/ Sodium (Chloride) 10 mls @ 300 mls/hr IV Q12 [facility] Last Admin: 03/14/19 21:05 Dose: 300 mls/hr Sodium Chloride () 250 mls @ 15 mls/hr IV .[id number] PRN PRN Reason: SALINE FLUSH Sodium Chloride () 500 mls @ 15 mls/hr IV .[id number] PRN PRN Reason: SALINE FLUSH Dexmedetomidine HCl 1,000 mcg/ (Sodium Chloride) 250 mls @ 14.03 mls/hr CONT INF .[id number] [facility] Last Admin: 03/15/19 05:07 Dose: 14.03 mls/hr Insulin Glargine (Lantus (Bkc)) 18 units SC DAILY [facility] Last Admin: 03/14/19 10:43 Dose: 18 u Insulin Human Lispro (Humalog Kwikpen (Bkc)) 0 unit SQ Q6 [facility]; Protocol Last Admin: 03/15/19 05:08 Dose: 2 u Labetalol HCl (Trandate) 20 mg IV Q4H PRN PRN PRN Reason: SBP > 160 Last Admin: 03/15/19 03:20 Dose: 20 mg Lorazepam (Ativan) 1 mg IV Q3H PRN PRN PRN Reason: AGITATION Last Admin: 03/15/19 01:29 Dose: 1 mg Magnesium Hydroxide (Milk Of Magnesia) 30 ml PO DAILY PRN PRN PRN Reason: Constipation Methylprednisolone (Solu-Medrol) 40 mg IV Q8 [facility] Last Admin: 03/15/19 05:07 Dose: 40 mg Ondansetron HCl (Zofran) 4 mg IV Q8H PRN PRN PRN Reason: Nausea Psyllium Hydrophilic Mucilloid (Metamucil) 1 packet PO DAILY PRN PRN PRN Reason: CONSTIPATION Quetiapine Fumarate (Seroquel) 100 mg PO BID [place] Last Admin: 03/14/19 21:05 Dose: 100 mg Sodium Chloride () 10 - 40 ml IV UD PRN PRN Reason: SALINE FLUSH Last Admin: 03/15/19 05:08 Dose: 10 ml Medical Necessity - Tobacco Use Smoking Status: Former smoker Assessment/Plan All Active Problems (Last Reviewed 11/13/17 @ 09:36 by Danni Bahena, CHIQUIS-C) Acute respiratory failure with hypoxia (Acute) Elevated troponin (Acute) Acute respiratory failure with hypoxia and hypercapnia (Acute) History of tubal ligation (Resolved) History of section (Resolved) COPD with acute exacerbation (Acute) Hypertensive urgency (Ruled-out) Otitis media (Ruled-out) Tobacco abuse (Resolved) This is a 48-year-old female with history of asthmatic bronchitis, not on oxygen, chronic nicotine use disorder, hypertension, type II DM, morbid obesity came to ED with several weeks of ongoing shortness of breath and fatigue worsened over 1 day along with fever, cough and severe respiratory acidosis and hypoxia consistent with acute hypoxic and hypercapnic respiratory failure 1. acute hypoxic and hypercapneic respiratory failure * Secondary to COPD exacerbation * Azithromycin is discontinued after 3 days * on vent--mgmt per lab support technician 2. AECOPD * Bronchodilators IV steroids discontinued and started on Pulmicort nebulization. Pulmonary clinic in 10/2017 and PFT and sleep study were ordered but patient never followed. 3. Elevated troponin: Most probably secondary to demand ischemia or perfusion mismatch. Echo was done and showed heart failure with preserved EF. EF 65%, impaired relaxation of LV. No regional wall motion abnormalities. Mildly dilated RV. Normal left atrium normal left atrium. RVSP 45 mmHg Agitation with severe anxiety/chronic pain syndrome/untreated obstructive sleep apnea with history of morbid obesity * Slowly taper off Precedex drip. * seroquel 4. DM2 uncontrolled * On Lantus and sliding scale insulin. On tube feed. Lantus dose is increased. 5. VTE proph: SQ heparin. Microbiology Past 72 Hours 03/12/19 14:50 Sputum, Induced/Lukens Gram Stain - Final 03/12/19 14:50 Sputum, Induced/Lukens Respiratory Culture - Preliminary Appears to be normal respiratory carrie. Further studies to follow. 03/12/19 14:50 Mucosa - Nose Respiratory Panel (PCR) - Final Clinical Impression(s) from Imaging Studies Chest X-Ray 03/12/19 11:53 IMPRESSION: Findings compatible with mild interstitial edema/congestive failure. No acute finding. Chest X-Ray 03/13/19 05:00 IMPRESSION: 1. Mild vascular congestion/edema similar accounting for differences in inflation. 2. Satisfactory position of right arm PICC. Microbiology Past 72 Hours 03/12/19 20:30 Blood Culture (Wb) - Other Blood Culture - Preliminary No growth in 48 hours. 03/12/19 20:30 Blood Culture (Wb) - Pic Blood Culture - Preliminary No growth in 48 hours. 03/12/19 14:50 Sputum, Induced/Lukens Gram Stain - Final 03/12/19 14:50 Sputum, Induced/Lukens Respiratory Culture - Final 03/12/19 20:40 Urine Catheter - Catheter Urine Culture - Preliminary Culture exhibits no growth. 03/12/19 14:50 Mucosa - Nose Respiratory Panel (PCR) - Final Laboratory Results 03/14/19 12:32: POC Glucose 309 H 03/14/19 17:39: POC Glucose 276 H 03/14/19 21:53: Specimen Type ART, Sample Site L Radial, pH 7.30 L, Bicarbonate Actual 30.8 H, POC Total CO2 33, Base Excess 4 H, O2 Saturation 96, ABG pCO2 62.7 H, ABG pO2 91, Baudilio Test NA, O2 Delivery Device Nasal Can, Liter Flow 6.0, Blood Gas Notified Whom HOSP , Blood Gas Notified Time 8 03/15/19 05:02: POC Glucose 243 H 03/15/19 05:31: Specimen Type ART, Sample Site L Radial, pH 7.36, Bicarbonate Actual 34.4 H, POC Total CO2 36, Base Excess 9 H, O2 Saturation 97, ABG pCO2 61.2 H, ABG pO2 93, Baudilio Test NA, O2 Delivery Device Nasal Can, Liter Flow 4.0, Blood Gas Notified Whom ICU , Blood Gas Notified Time 525 Active Medications Acetaminophen (Tylenol Liquid) 650 mg GT Q6H PRN PRN PRN Reason: Fever >101 Albuterol Sulfate (Ventolin Aerosols) 2.5 mg INHALATION Q2H PRN PRN PRN Reason: SHORTNESS OF BREATH Last Admin: 03/15/19 05:00 Dose: 2.5 mg Albuterol/Ipratropium (Duoneb) 3 ml INHALATION Q4H.RT [facility] Last Admin: 03/15/19 10:53 Dose: 3 ml Bisacodyl (Dulcolax) 5 mg PO DAILY PRN PRN PRN Reason: Constipation Budesonide (Pulmicort Aerosol) 0.5 mg INHALATION BID.RT [facility] Chlorhexidine Gluconate () 1 each TOPICAL DAILY [facility] Last Admin: 03/15/19 09:40 Dose: 1 each Dextrose (D50w Syringe) 0 gm IV X1 PRN; Protocol PRN Reason: Hypoglycemia Glucagon () 1 mg IM .X1 PRN PRN Reason: Hypoglycemia Haloperidol Lactate (Haldol) 1 mg IV Q3H PRN PRN PRN Reason: AGITATION Last Admin: 03/15/19 09:31 Dose: 1 mg Heparin Sodium (Porcine) (Heparin Na) 5,000 unit SC Q8 [facility] Last Admin: 03/15/19 14:32 Dose: 5,000 unit Hydralazine HCl (Apresoline Iv) 20 mg IV Q4H PRN PRN PRN Reason: SBP>160 Famotidine 20 mg/ Sodium (Chloride) 10 mls @ 300 mls/hr IV Q12 [facility] Last Admin: 03/15/19 09:43 Dose: 300 mls/hr Sodium Chloride () 250 mls @ 15 mls/hr IV .[id number] PRN PRN Reason: SALINE FLUSH Sodium Chloride () 500 mls @ 15 mls/hr IV .[id number] PRN PRN Reason: SALINE FLUSH Insulin Glargine (Lantus (Bkc)) 18 units SC DAILY@0600 [facility] Insulin Human Lispro (Humalog Kwikpen (Bkc)) 0 unit SQ Q6 [facility]; Protocol Last Admin: 03/15/19 11:46 Dose: 4 u Labetalol HCl (Trandate) 20 mg IV Q4H PRN PRN PRN Reason: SBP > 160 Last Admin: 03/15/19 03:20 Dose: 20 mg Magnesium Hydroxide (Milk Of Magnesia) 30 ml PO DAILY PRN PRN PRN Reason: Constipation Ondansetron HCl (Zofran) 4 mg IV Q8H PRN PRN PRN Reason: Nausea Quetiapine Fumarate (Seroquel) 100 mg PO BID [facility] Last Admin: 03/15/19 09:43 Dose: Not Given Sodium Chloride () 10 - 40 ml IV UD PRN PRN Reason: SALINE FLUSH Last Admin: 03/15/19 05:08 Dose: 10 ml Code Visit Inpatient E&M: 85468 Subs Hosp L3
--- NOTE | 2019-03-15 09:05 | CASEMGMT ---
RN HOANG NOTE: Participated in interdisciplinary rounds. Son and boyfriend @ bedside. Pt was intubated, but extubated self during the night. Pt is agitated, swearing, and demanding. CM to continue to follow/assess for discharge plan/needs. Betina BSN RN CM
[2019-03-15] MEDS: CHLORHEXIDINE GLUC 2% CLOTH 1 EACH TOWELETTE TOPICAL (09:40)
[2019-03-15 13:06] LABS: Bedside Glucose 289 mg/dL (70-110)
[2019-03-15 18:06] LABS: Bedside Glucose 166 mg/dL (70-110)
--- NOTE | 2019-03-15 19:16 | CPS ---
patient was 87% on 2 lpm nc. patient increased to 3 lpm.
--- NOTE | 2019-03-15 21:29 | CPS ---
patient refuses bipap at time of visit. patients nurse aware.
[2019-03-15] MEDS: QUEtiapine 100 MG Tablet PO (22:13)
[2019-03-15 22:26] LABS: Bedside Glucose 169 mg/dL (70-110)
--- NOTE | 2019-03-15 23:30 | CPS ---
patient refused bipap at time of visit.
--- NOTE | 2019-03-15 23:31 | CPS ---
patient increased to 4 lpm via nursing due to desaturation.
[2019-03-16] VITALS (26 sets, daily range): BP systolic 134–167; BP diastolic 63–106; PULSE 88–112; RESP 16–28; TEMP 36.7–37.2; O2SAT 90–98
[2019-03-16] MEDS: Ipratropium/Albuterol Sulfate 3 ML AMPUL.NEB INHALATION ×5 (02:19→18:57)
[2019-03-16] MEDS: Heparin Injection (Vial) 5,000 UNIT/ML VIAL 5000 UNIT SC ×3 (06:11→21:21)
--- NOTE | 2019-03-16 06:17 | PCM.PN.INT ---
Subjective: The patient was seen and examined at the bedside this morning. Events from the last 24 hours have been reviewed. The patient is currently afebrile, hemodynamically stable and maintaining appropriate oxygen saturations on 2 L/min via nasal cannula. The patient did well overnight, per nursing report. The patient passed her dysphagia screen yesterday and her diet was advanced accordingly. The patient's agitation appears to be improved this morning after her systemic corticosteroids were discontinued yesterday. In their place, she was started on twice daily budesonide. The patient's scheduled Seroquel and as needed Haldol were discontinued this morning as well, as the patient is not on any of these medications at her baseline. Objective: The patient's most recent lab work, culture data and imaging studies have all been personally reviewed. Blood and urine cultures are pending. Sputum culture appeared to be normal respiratory carrie. Respiratory viral panel was negative. Surface echocardiogram revealed moderate to severe concentric LVH with an ejection fraction of 65% and evidence of diastolic dysfunction. Right ventricular systolic pressure was estimated to be 45 mmHg. General: Alert, Cooperative, No apparent distress HEENT: Atraumatic, PERRLA, Normocephalic Oral: No Gingival or Mucosal Lesions/ Ulcerations Neck: Supple, No Nodes, Trachea Midline Lungs: Diminished, Wheezes Cardiovascular: Regular rate, Regular Rhythm, Normal S1, Normal S2, No murmurs Abdomen: Bowel Sounds Present, Soft, Non Tender, Obese Extremities: No clubbing, No cyanosis, Edema Skin: No breakdown Musculoskeletal: No Tenderness to Palpation of Joints or Extremities Lymphatic: No Cervical, Supraclavicular, or Inguinal Adenopathy Neurological: Neuro grossly intact Psych/Mental Status: Normal Affect, Appropriate Vital Signs Temp Pulse Resp BP Pulse Ox 98.6 F 88 17 156/76 H 96 03/16/19 04:00 03/16/19 05:00 03/16/19 05:00 03/16/19 05:00 03/16/19 05:00 Oxygen Flow Rate (L/min) 4 Oxygen Delivery Method Nasal Cannula Weight: 240 lb 8.389 oz Body Mass Index (BMI) 46.4 Intake and Output for Last 24 Hours 03/14/19 03/15/19 03/16/19 23:59 23:59 23:59 Intake Total 3984 / 3984 810 / 810 677 / 677 Output Total 2925 / 2925 1700 / 1700 200 / 200 Balance 1059 / 1059 -890 / -890 477 / 477 Labs (Last 48 Hours) 03/14/19 03/14/19 03/14/19 12:32 17:39 21:53 Specimen Type ART Sample Site L Radial pH 7.30 L Bicarbonate Actual 30.8 H POC Total CO2 33 Base Excess 4 H O2 Saturation 96 ABG pCO2 62.7 H ABG pO2 91 Baudilio Test NA O2 Delivery Device Nasal Can Liter Flow 6.0 Blood Gas Notified Whom HOSP Blood Gas Notified Time 2145 POC Glucose 309 H 276 H 03/15/19 03/15/19 03/15/19 05:02 05:31 11:45 Specimen Type ART Sample Site L Radial pH 7.36 Bicarbonate Actual 34.4 H POC Total CO2 36 Base Excess 9 H O2 Saturation 97 ABG pCO2 61.2 H ABG pO2 93 Baudilio Test NA O2 Delivery Device Nasal Can Liter Flow 4.0 Blood Gas Notified Whom ICU Blood Gas Notified Time 525 POC Glucose 243 H 289 H 03/15/19 03/15/19 17:52 22:10 Specimen Type Sample Site pH Bicarbonate Actual POC Total CO2 Base Excess O2 Saturation ABG pCO2 ABG pO2 Baudilio Test O2 Delivery Device Liter Flow Blood Gas Notified Whom Blood Gas Notified Time POC Glucose 166 H 169 H Microbiology 03/12/19 20:40 Urine Catheter - Catheter Urine Culture - Final Culture exhibits no growth. 03/12/19 20:30 Blood Culture (Wb) - Other Blood Culture - Preliminary No growth in 48 hours. 03/12/19 20:30 Blood Culture (Wb) - Pic Blood Culture - Preliminary No growth in 48 hours. 03/12/19 14:50 Sputum, Induced/Lukens Gram Stain - Final 03/12/19 14:50 Sputum, Induced/Lukens Respiratory Culture - Final Clinical Impression(s) from Imaging Studies Chest X-Ray 03/12/19 11:53 IMPRESSION: Findings compatible with mild interstitial edema/congestive failure. No acute finding. Electronically Signed: Daniel Sanford MD at 12:35 EDT , Service support , Chest X-Ray 03/12/19 12:29 IMPRESSION: Endotracheal and NG tube placed with no complications. Stable cardiomegaly with hyperexpansion. Electronically Signed: Daniel Sanford MD at 13:31 EDT , Service support , KUB X-Ray 03/12/19 13:00 IMPRESSION: Endotracheal and NG tubes as described. No complications identified. Electronically Signed: Daniel Sanford MD at 13:34 EDT , Service support , Chest X-Ray 03/12/19 18:40 IMPRESSION: 1. Appropriate positioning of right-sided PICC line. 2. Unchanged appearance of cardiomegaly and mild pulmonary congestion. Electronically Signed: Emeli Flaherty MD at 19:23 EDT , Service support , Chest X-Ray 03/13/19 05:00 IMPRESSION: 1. Mild vascular congestion/edema similar accounting for differences in inflation. 2. Satisfactory position of right arm PICC. Electronically Signed: Andrea Guadalupe MD at 17:27 EDT , Service support , Medical Necessity - Tobacco Use Smoking Status: Former smoker Assessment/Plan All Active Problems (Last Reviewed 11/13/17 @ 09:36 by Danni Bahena NP-C) Acute respiratory failure with hypoxia (Acute) Elevated troponin (Acute) Acute respiratory failure with hypoxia and hypercapnia (Acute) History of tubal ligation (Resolved) History of section (Resolved) COPD with acute exacerbation (Acute) Hypertensive urgency (Ruled-out) Otitis media (Ruled-out) Tobacco abuse (Resolved) RECOMMENDATIONS: 1. Complete 7 days of empiric antimicrobials. 2. Continue scheduled bronchodilators and budesonide as ordered. 3. Discontinue Seroquel and as needed Haldol. 4. Wean supplemental oxygen to maintain saturations at or above 90%. 5. Encourage incentive spirometer use and mobilize patient as tolerated. 6. Consider restarting home antihypertensive regimen. IMPRESSIONS: 1. Acute hypoxemic respiratory failure The patient has a reported history of both COPD and asthma. Although she was seen initially in the pulmonary medicine clinic, the patient never followed up, nor completed any of her testing. She is currently on treatment for community-acquired pneumonia. Although the patient did self extubate, she is currently maintaining appropriate oxygen saturations on 4 L/min. She does have an extensive smoking history and continues to smoke 1 pack of cigarettes daily. While it is reasonable to continue treatment for an exacerbation, her corticosteroids were discontinued due to the development of steroid-induced behavioral changes. She was then placed on scheduled budesonide and appears to be doing well from a clinical perspective. Her scheduled Seroquel and as needed Haldol can be discontinued from my perspective. We will continue to wean supplemental oxygen as tolerated. Encourage incentive spirometer use and mobilize patient as tolerated. 2. Heart failure with preserved ejection fraction/pulmonary hypertension Can consider low-dose diuretic therapy, if the patient is unable to be weaned from supplemental oxygen. 3. Clinical concern for underlying sleep disordered breathing Recommend empiric use of BiPAP therapy while sleeping. The patient needs to follow-up with the pulmonary medicine clinic so that a diagnostic polysomnogram can be completed. 4. Continuous tobacco dependency/diabetes mellitus/morbid obesity/history of medical noncompliance/chronic pain syndrome Complicates care, management, recovery and prognosis. Restart home antihypertensive regimen. Nicotine replacement therapy can be offered to the patient while she is admitted to the hospital. This note was generated with [employer] dictation software. It may contain incorrect words, spelling, and punctuation that were not noted in checking the note before signing. DISPOSITION: The patient is medically stable for transfer out of the intensive care unit. Code Visit Inpatient E&M: [id number] [facility] Hosp L3
[2019-03-16 06:21] LABS: Bedside Glucose 117 mg/dL (70-110)
--- NOTE | 2019-03-16 08:37 | PCM.PN.HOSP ---
Patient Problems: Active and Suspected Problems (Last Reviewed 11/13/17 @ 09:36 by Danni Bahena NP-Shoaib) Elevated troponin (Acute) Acute respiratory failure with hypoxia and hypercapnia (Acute) Subjective: Overall, patient did well after extubation. Patient still has mild shortness of breath but has much improved. Vitals/I&O's: Vital Signs Temp Pulse Resp BP Pulse Ox 99.0 F 100 28 H 167/83 H 93 03/16/19 08:00 03/16/19 08:00 03/16/19 08:00 03/16/19 08:00 03/16/19 08:00 Oxygen Flow Rate (L/min) 4 Oxygen Delivery Method Nasal Cannula Weight: 240 lb 8.389 oz Body Mass Index (BMI) 46.4 Intake and Output for Last 24 Hours 03/14/19 03/15/19 03/16/19 23:59 23:59 23:59 Intake Total 3984 / 3984 810 / 810 917 / 917 Output Total 2925 / 2925 1700 / 1700 500 / 500 Balance 1059 / 1059 -890 / -890 417 / 417 General: Alert, Oriented x3, Cooperative HEENT: Atraumatic, PERRLA, EOMI, Normocephalic Neck: Supple, No JVD, Negative Carotid Bruits Lungs: Diminished, Short of Breath, Wheezes Cardiovascular: Regular rate, Regular Rhythm, Normal S1, Normal S2, No murmurs Abdomen: Bowel Sounds Present, Soft, Non Tender, Non-Distended Extremities: Capillary Refill Less than 3 Seconds, Edema Skin: No rashes, No breakdown, - - corn Left on 5th metatarsal Musculoskeletal: No Tenderness to Palpation of Joints or Extremities, Arthritic Changes Neurological: Cranial nerves II-XII grossly intact Psych/Mental Status: Normal Affect, Appropriate Microbiology Past 72 Hours 03/12/19 20:40 Urine Catheter - Catheter Urine Culture - Final Culture exhibits no growth. 03/12/19 20:30 Blood Culture (Wb) - Other Blood Culture - Preliminary No growth in 48 hours. 03/12/19 20:30 Blood Culture (Wb) - Pic Blood Culture - Preliminary No growth in 48 hours. 03/12/19 14:50 Sputum, Induced/Lukens Gram Stain - Final 03/12/19 14:50 Sputum, Induced/Lukens Respiratory Culture - Final 03/12/19 14:50 Mucosa - Nose Respiratory Panel (PCR) - Final Laboratory Results 03/15/19 11:45: POC Glucose 289 H 03/15/19 17:52: POC Glucose 166 H 03/15/19 22:10: POC Glucose 169 H 03/16/19 06:09: POC Glucose 117 H Current Medications Acetaminophen (Tylenol Liquid) 650 mg GT Q6H PRN PRN PRN Reason: Fever >101 Albuterol Sulfate (Ventolin Aerosols) 2.5 mg INHALATION Q2H PRN PRN PRN Reason: SHORTNESS OF BREATH Last Admin: 03/15/19 05:00 Dose: 2.5 mg Albuterol/Ipratropium (Duoneb) 3 ml INHALATION Q4H.RT [facility] Last Admin: 03/16/19 06:35 Dose: 3 ml Bisacodyl (Dulcolax) 5 mg PO DAILY PRN PRN PRN Reason: Constipation Budesonide (Pulmicort Aerosol) 0.5 mg INHALATION BID.RT [facility] Chlorhexidine Gluconate () 1 each TOPICAL DAILY [facility] Last Admin: 03/15/19 09:40 Dose: 1 each Dextrose (D50w Syringe) 0 gm IV X1 PRN; Protocol PRN Reason: Hypoglycemia Glucagon () 1 mg IM .X1 PRN PRN Reason: Hypoglycemia Heparin Sodium (Porcine) (Heparin Na) 5,000 unit SC Q8 [facility] Last Admin: 03/16/19 06:11 Dose: 5,000 unit Hydralazine HCl (Apresoline Iv) 20 mg IV Q4H PRN PRN PRN Reason: SBP>160 Famotidine 20 mg/ Sodium (Chloride) 10 mls @ 300 mls/hr IV Q12 [facility] Last Admin: 03/15/19 22:13 Dose: 300 mls/hr Sodium Chloride () 250 mls @ 15 mls/hr IV .[id number] PRN PRN Reason: SALINE FLUSH Sodium Chloride () 500 mls @ 15 mls/hr IV .[id number] PRN PRN Reason: SALINE FLUSH Insulin Glargine (Lantus (Bkc)) 25 units SC DAILY@0600 [facility] Last Admin: 03/16/19 06:12 Dose: Not Given Insulin Human Lispro (Humalog Kwikpen (Bkc)) 0 unit SC ACHS [facility]; Protocol Labetalol HCl (Trandate) 20 mg IV Q4H PRN PRN PRN Reason: SBP > 160 Last Admin: 03/15/19 03:20 Dose: 20 mg Magnesium Hydroxide (Milk Of Magnesia) 30 ml PO DAILY PRN PRN PRN Reason: Constipation Ondansetron HCl (Zofran) 4 mg IV Q8H PRN PRN PRN Reason: Nausea Sodium Chloride () 10 - 40 ml IV UD PRN PRN Reason: SALINE FLUSH Last Admin: 03/15/19 05:08 Dose: 10 ml Medical Necessity - Tobacco Use Smoking Status: Former smoker Assessment/Plan All Active Problems (Last Reviewed 11/13/17 @ 09:36 by Danni Bahena, CHIQUIS-C) Acute respiratory failure with hypoxia (Acute) Elevated troponin (Acute) Acute respiratory failure with hypoxia and hypercapnia (Acute) History of tubal ligation (Resolved) History of section (Resolved) COPD with acute exacerbation (Acute) Hypertensive urgency (Ruled-out) Otitis media (Ruled-out) Tobacco abuse (Resolved) This is a 48-year-old female with history of asthmatic bronchitis, not on oxygen, chronic nicotine use disorder, hypertension, type II DM, morbid obesity came to ED with several weeks of ongoing shortness of breath and fatigue worsened over 1 day along with fever, cough and severe respiratory acidosis and hypoxia consistent with acute hypoxic and hypercapnic respiratory failure 1. acute hypoxic and hypercapneic respiratory failure Secondary to COPD exacerbation Azithromycin is discontinued after 3 days On 3 L of oxygen. Stable to be transferred to PCU. 2. AECOPD Bronchodilators IV steroids discontinued and started on Pulmicort nebulization. Pulmonary clinic in 10/2017 and PFT and sleep study were ordered but patient never followed. Pulmonary consult reviewed. 3. Elevated troponin, tonic heart failure with preserved EF and moderate pulmonary hypertension: Most probably secondary to demand ischemia or perfusion mismatch. Echo was done and showed heart failure with preserved EF. EF 65%, impaired relaxation of LV. No regional wall motion abnormalities. Mildly dilated RV. Normal left atrium normal left atrium. RVSP 45 mmHg. On low-dose diuretic. Agitation with severe anxiety/chronic pain syndrome/untreated obstructive sleep apnea with history of morbid obesity Seroquel and Precedex drip has been discontinued. PRN Haldol if needed. 4. DM2 uncontrolled On Lantus and sliding scale insulin. On tube feed. Lantus dose is increased. Accu-Cheks are controlled in 150s. 5. VTE proph: SQ heparin. Microbiology Past 72 Hours 03/12/19 14:50 Sputum, Induced/Lukens Gram Stain - Final 03/12/19 14:50 Sputum, Induced/Lukens Respiratory Culture - Preliminary Appears to be normal respiratory carrie. Further studies to follow. 03/12/19 14:50 Mucosa - Nose Respiratory Panel (PCR) - Final Clinical Impression(s) from Imaging Studies Chest X-Ray 03/12/19 11:53 IMPRESSION: Findings compatible with mild interstitial edema/congestive failure. No acute finding. Chest X-Ray 03/13/19 05:00 IMPRESSION: 1. Mild vascular congestion/edema similar accounting for differences in inflation. 2. Satisfactory position of right arm PICC. Microbiology Past 72 Hours 03/12/19 20:40 Urine Catheter - Catheter Urine Culture - Final Culture exhibits no growth. 03/12/19 20:30 Blood Culture (Wb) - Other Blood Culture - Preliminary No growth in 48 hours. 03/12/19 20:30 Blood Culture (Wb) - Pic Blood Culture - Preliminary No growth in 48 hours. 03/12/19 14:50 Sputum, Induced/Lukens Gram Stain - Final 03/12/19 14:50 Sputum, Induced/Lukens Respiratory Culture - Final 03/12/19 14:50 Mucosa - Nose Respiratory Panel (PCR) - Final Laboratory Results 03/15/19 11:45: POC Glucose 289 H 03/15/19 17:52: POC Glucose 166 H 03/15/19 22:10: POC Glucose 169 H 03/16/19 06:09: POC Glucose 117 H Active Medications Acetaminophen (Tylenol Liquid) 650 mg GT Q6H PRN PRN PRN Reason: Fever >101 Albuterol Sulfate (Ventolin Aerosols) 2.5 mg INHALATION Q2H PRN PRN PRN Reason: SHORTNESS OF BREATH Last Admin: 03/15/19 05:00 Dose: 2.5 mg Albuterol/Ipratropium (Duoneb) 3 ml INHALATION Q4H.RT [facility] Last Admin: 03/16/19 06:35 Dose: 3 ml Bisacodyl (Dulcolax) 5 mg PO DAILY PRN PRN PRN Reason: Constipation Budesonide (Pulmicort Aerosol) 0.5 mg INHALATION BID.RT [facility] Chlorhexidine Gluconate () 1 each TOPICAL DAILY [facility] Last Admin: 03/15/19 09:40 Dose: 1 each Dextrose (D50w Syringe) 0 gm IV X1 PRN; Protocol PRN Reason: Hypoglycemia Glucagon () 1 mg IM .X1 PRN PRN Reason: Hypoglycemia Heparin Sodium (Porcine) (Heparin Na) 5,000 unit SC Q8 [facility] Last Admin: 03/16/19 06:11 Dose: 5,000 unit Hydralazine HCl (Apresoline Iv) 20 mg IV Q4H PRN PRN PRN Reason: SBP>160 Famotidine 20 mg/ Sodium (Chloride) 10 mls @ 300 mls/hr IV Q12 [facility] Last Admin: 03/15/19 22:13 Dose: 300 mls/hr Sodium Chloride () 250 mls @ 15 mls/hr IV .[id number] PRN PRN Reason: SALINE FLUSH Sodium Chloride () 500 mls @ 15 mls/hr IV .[id number] PRN PRN Reason: SALINE FLUSH Insulin Glargine (Lantus (Bkc)) 25 units SC DAILY@0600 [facility] Last Admin: 03/16/19 06:12 Dose: Not Given Insulin Human Lispro (Humalog Kwikpen (Bkc)) 0 unit SC ACHS [facility]; Protocol Labetalol HCl (Trandate) 20 mg IV Q4H PRN PRN PRN Reason: SBP > 160 Last Admin: 03/15/19 03:20 Dose: 20 mg Magnesium Hydroxide (Milk Of Magnesia) 30 ml PO DAILY PRN PRN PRN Reason: Constipation Ondansetron HCl (Zofran) 4 mg IV Q8H PRN PRN PRN Reason: Nausea Sodium Chloride () 10 - 40 ml IV UD PRN PRN Reason: SALINE FLUSH Last Admin: 03/15/19 05:08 Dose: 10 ml Code Visit Inpatient E&M: [id number] [facility] Hosp
--- NOTE | 2019-03-16 08:44 | PN_ITS ---
Patient Problems: Active and Suspected Problems (Last Reviewed 11/13/17 @ 09:36 by Danni Bahena NP-Shoaib) Elevated troponin (Acute) Acute respiratory failure with hypoxia and hypercapnia (Acute) Subjective: Overall, patient did well after extubation. Patient still has mild shortness of breath but has much improved. Vitals/I&O's: Vital Signs Temp Pulse Resp BP Pulse Ox 99.0 F 100 28 H 167/83 H 93 03/16/19 08:00 03/16/19 08:00 03/16/19 08:00 03/16/19 08:00 03/16/19 08:00 Oxygen Flow Rate (L/min) 4 Oxygen Delivery Method Nasal Cannula Weight: 240 lb 8.389 oz Body Mass Index (BMI) 46.4 Intake and Output for Last 24 Hours 03/14/19 03/15/19 03/16/19 23:59 23:59 23:59 Intake Total 3984 / 3984 810 / 810 917 / 917 Output Total 2925 / 2925 1700 / 1700 500 / 500 Balance 1059 / 1059 -890 / -890 417 / 417 General: Alert, Oriented x3, Cooperative HEENT: Atraumatic, PERRLA, EOMI, Normocephalic Neck: Supple, No JVD, Negative Carotid Bruits Lungs: Diminished, Short of Breath, Wheezes Cardiovascular: Regular rate, Regular Rhythm, Normal S1, Normal S2, No murmurs Abdomen: Bowel Sounds Present, Soft, Non Tender, Non-Distended Extremities: Capillary Refill Less than 3 Seconds, Edema Skin: No rashes, No breakdown, - - corn Left on 5th metatarsal Musculoskeletal: No Tenderness to Palpation of Joints or Extremities, Arthritic Changes Neurological: Cranial nerves II-XII grossly intact Psych/Mental Status: Normal Affect, Appropriate Microbiology Past 72 Hours 03/12/19 20:40 Urine Catheter - Catheter Urine Culture - Final Culture exhibits no growth. 03/12/19 20:30 Blood Culture (Wb) - Other Blood Culture - Preliminary No growth in 48 hours. 03/12/19 20:30 Blood Culture (Wb) - Pic Blood Culture - Preliminary No growth in 48 hours. 03/12/19 14:50 Sputum, Induced/Lukens Gram Stain - Final 03/12/19 14:50 Sputum, Induced/Lukens Respiratory Culture - Final 03/12/19 14:50 Mucosa - Nose Respiratory Panel (PCR) - Final Laboratory Results 03/15/19 11:45: POC Glucose 289 H 03/15/19 17:52: POC Glucose 166 H 03/15/19 22:10: POC Glucose 169 H 03/16/19 06:09: POC Glucose 117 H Current Medications Acetaminophen (Tylenol Liquid) 650 mg GT Q6H PRN PRN PRN Reason: Fever >101 Albuterol Sulfate (Ventolin Aerosols) 2.5 mg INHALATION Q2H PRN PRN PRN Reason: SHORTNESS OF BREATH Last Admin: 03/15/19 05:00 Dose: 2.5 mg Albuterol/Ipratropium (Duoneb) 3 ml INHALATION Q4H.RT [facility] Last Admin: 03/16/19 06:35 Dose: 3 ml Bisacodyl (Dulcolax) 5 mg PO DAILY PRN PRN PRN Reason: Constipation Budesonide (Pulmicort Aerosol) 0.5 mg INHALATION BID.RT [facility] Chlorhexidine Gluconate () 1 each TOPICAL DAILY [facility] Last Admin: 03/15/19 09:40 Dose: 1 each Dextrose (D50w Syringe) 0 gm IV X1 PRN; Protocol PRN Reason: Hypoglycemia Glucagon () 1 mg IM .X1 PRN PRN Reason: Hypoglycemia Heparin Sodium (Porcine) (Heparin Na) 5,000 unit SC Q8 [facility] Last Admin: 03/16/19 06:11 Dose: 5,000 unit Hydralazine HCl (Apresoline Iv) 20 mg IV Q4H PRN PRN PRN Reason: SBP>160 Famotidine 20 mg/ Sodium (Chloride) 10 mls @ 300 mls/hr IV Q12 [facility] Last Admin: 03/15/19 22:13 Dose: 300 mls/hr Sodium Chloride () 250 mls @ 15 mls/hr IV .[id number] PRN PRN Reason: SALINE FLUSH Sodium Chloride () 500 mls @ 15 mls/hr IV .[id number] PRN PRN Reason: SALINE FLUSH Insulin Glargine (Lantus (Bkc)) 25 units SC DAILY@0600 [facility] Last Admin: 03/16/19 06:12 Dose: Not Given Insulin Human Lispro (Humalog Kwikpen (Bkc)) 0 unit SC ACHS [facility]; Protocol Labetalol HCl (Trandate) 20 mg IV Q4H PRN PRN PRN Reason: SBP > 160 Last Admin: 03/15/19 03:20 Dose: 20 mg Magnesium Hydroxide (Milk Of Magnesia) 30 ml PO DAILY PRN PRN PRN Reason: Constipation Ondansetron HCl (Zofran) 4 mg IV Q8H PRN PRN PRN Reason: Nausea Sodium Chloride () 10 - 40 ml IV UD PRN PRN Reason: SALINE FLUSH Last Admin: 03/15/19 05:08 Dose: 10 ml Medical Necessity - Tobacco Use Smoking Status: Former smoker Assessment/Plan All Active Problems (Last Reviewed 11/13/17 @ 09:36 by Danni Bahena, CHIQUIS-C) Acute respiratory failure with hypoxia (Acute) Elevated troponin (Acute) Acute respiratory failure with hypoxia and hypercapnia (Acute) History of tubal ligation (Resolved) History of section (Resolved) COPD with acute exacerbation (Acute) Hypertensive urgency (Ruled-out) Otitis media (Ruled-out) Tobacco abuse (Resolved) This is a 48-year-old female with history of asthmatic bronchitis, not on oxygen, chronic nicotine use disorder, hypertension, type II DM, morbid obesity came to ED with several weeks of ongoing shortness of breath and fatigue worsened over 1 day along with fever, cough and severe respiratory acidosis and hypoxia consistent with acute hypoxic and hypercapnic respiratory failure 1. acute hypoxic and hypercapneic respiratory failure * Secondary to COPD exacerbation * Azithromycin is discontinued after 3 days * On 3 L of oxygen. * Stable to be transferred to PCU. 2. AECOPD * Bronchodilators IV steroids discontinued and started on Pulmicort nebulization. Pulmonary clinic in 10/2017 and PFT and sleep study were ordered but patient never followed. Pulmonary consult reviewed. 3. Elevated troponin, tonic heart failure with preserved EF and moderate pulmonary hypertension: Most probably secondary to demand ischemia or perfusion mismatch. Echo was done and showed heart failure with preserved EF. EF 65%, impaired relaxation of LV. No regional wall motion abnormalities. Mildly dilated RV. Normal left atrium normal left atrium. RVSP 45 mmHg. On low-dose diuretic. Agitation with severe anxiety/chronic pain syndrome/untreated obstructive sleep apnea with history of morbid obesity * Seroquel and Precedex drip has been discontinued. PRN Haldol if needed. 4. DM2 uncontrolled * On Lantus and sliding scale insulin. On tube feed. Lantus dose is increased. Accu-Cheks are controlled in 150s. 5. VTE proph: SQ heparin. Microbiology Past 72 Hours 03/12/19 14:50 Sputum, Induced/Lukens Gram Stain - Final 03/12/19 14:50 Sputum, Induced/Lukens Respiratory Culture - Preliminary Appears to be normal respiratory carrie. Further studies to follow. 03/12/19 14:50 Mucosa - Nose Respiratory Panel (PCR) - Final Clinical Impression(s) from Imaging Studies Chest X-Ray 03/12/19 11:53 IMPRESSION: Findings compatible with mild interstitial edema/congestive failure. No acute finding. Chest X-Ray 03/13/19 05:00 IMPRESSION: 1. Mild vascular congestion/edema similar accounting for differences in inflation. 2. Satisfactory position of right arm PICC. Microbiology Past 72 Hours 03/12/19 20:40 Urine Catheter - Catheter Urine Culture - Final Culture exhibits no growth. 03/12/19 20:30 Blood Culture (Wb) - Other Blood Culture - Preliminary No growth in 48 hours. 03/12/19 20:30 Blood Culture (Wb) - Pic Blood Culture - Preliminary No growth in 48 hours. 03/12/19 14:50 Sputum, Induced/Lukens Gram Stain - Final 03/12/19 14:50 Sputum, Induced/Lukens Respiratory Culture - Final 03/12/19 14:50 Mucosa - Nose Respiratory Panel (PCR) - Final Laboratory Results 03/15/19 11:45: POC Glucose 289 H 03/15/19 17:52: POC Glucose 166 H 03/15/19 22:10: POC Glucose 169 H 03/16/19 06:09: POC Glucose 117 H Active Medications Acetaminophen (Tylenol Liquid) 650 mg GT Q6H PRN PRN PRN Reason: Fever >101 Albuterol Sulfate (Ventolin Aerosols) 2.5 mg INHALATION Q2H PRN PRN PRN Reason: SHORTNESS OF BREATH Last Admin: 03/15/19 05:00 Dose: 2.5 mg Albuterol/Ipratropium (Duoneb) 3 ml INHALATION Q4H.RT [facility] Last Admin: 03/16/19 06:35 Dose: 3 ml Bisacodyl (Dulcolax) 5 mg PO DAILY PRN PRN PRN Reason: Constipation Budesonide (Pulmicort Aerosol) 0.5 mg INHALATION BID.RT [facility] Chlorhexidine Gluconate () 1 each TOPICAL DAILY [facility] Last Admin: 03/15/19 09:40 Dose: 1 each Dextrose (D50w Syringe) 0 gm IV X1 PRN; Protocol PRN Reason: Hypoglycemia Glucagon () 1 mg IM .X1 PRN PRN Reason: Hypoglycemia Heparin Sodium (Porcine) (Heparin Na) 5,000 unit SC Q8 [facility] Last Admin: 03/16/19 06:11 Dose: 5,000 unit Hydralazine HCl (Apresoline Iv) 20 mg IV Q4H PRN PRN PRN Reason: SBP>160 Famotidine 20 mg/ Sodium (Chloride) 10 mls @ 300 mls/hr IV Q12 [facility] Last Admin: 03/15/19 22:13 Dose: 300 mls/hr Sodium Chloride () 250 mls @ 15 mls/hr IV .[id number] PRN PRN Reason: SALINE FLUSH Sodium Chloride () 500 mls @ 15 mls/hr IV .[id number] PRN PRN Reason: SALINE FLUSH Insulin Glargine (Lantus (Bkc)) 25 units SC DAILY@0600 [facility] Last Admin: 03/16/19 06:12 Dose: Not Given Insulin Human Lispro (Humalog Kwikpen (Bkc)) 0 unit SC ACHS [facility]; Protocol Labetalol HCl (Trandate) 20 mg IV Q4H PRN PRN PRN Reason: SBP > 160 Last Admin: 03/15/19 03:20 Dose: 20 mg Magnesium Hydroxide (Milk Of Magnesia) 30 ml PO DAILY PRN PRN PRN Reason: Constipation Ondansetron HCl (Zofran) 4 mg IV Q8H PRN PRN PRN Reason: Nausea Sodium Chloride () 10 - 40 ml IV UD PRN PRN Reason: SALINE FLUSH Last Admin: 03/15/19 05:08 Dose: 10 ml Code Visit Inpatient E&M: [id number] [facility] Hosp
[2019-03-16] MEDS: amLODIPine 10 MG Tablet PO (09:32)
[2019-03-16] MEDS: Furosemide 40 MG/4 ML Vial IV (09:32)
[2019-03-16] MEDS: hydroCHLOROthiazide 25 MG Tablet PO (09:32)
[2019-03-16] MEDS: 0.9% Saline Lock 10 ML Syringe IV ×2 (09:33→21:21)
--- NOTE | 2019-03-16 10:27 | CASEMGMT ---
Addendum entered by Angelito Dunlap 03/16/19 11:21: Script for shower chair faxed to [facility]. Insurance card copy included. Imer MACEDO Original Note: DOC BOLTON Note: Intro role of CM to patient in room. Discussed dc planning. Pt plans to return home. States her boyfriend, Adrian will be able to assist. Oxygen: [facility]. Pt would like to switch to [facility]. Information given for her to call [facility] on discharge. Pt states she has nebulizer, concentrator and portable tanks. DME Needs: shower chair. [facility] preference. [employer] will cover if script faxed. DOC BOLTON will get script for Hospitalist. Pt needs to bring in [employer] insurance card to fax along with script. Pt will contact someone to bring card in. Imer MACEDO
[2019-03-16] MEDS: Budesonide Respules 0.5 MG/2 ML AMPUL.NEB. INHALATION (10:30)
[2019-03-16] MEDS: Insulin Lispro 100 UNIT/ML INSULN.PEN SC ×3 (11:14→21:27)
[2019-03-16 12:21] LABS: Bedside Glucose 195 mg/dL (70-110)
[2019-03-16] MEDS: Acetaminophen 325 MG Tablet 650 MG PO (16:38)
[2019-03-16 16:46] LABS: Bedside Glucose 194 mg/dL (70-110)
[2019-03-16 22:20] LABS: Bedside Glucose 269 mg/dL (70-110)
[2019-03-17] VITALS (16 sets, daily range): BP systolic 145–153; BP diastolic 75–90; PULSE 86–104; RESP 16–24; TEMP 36.2–37; O2SAT 86–97
[2019-03-17] MEDS: Albuterol 2.5 MG/3 ML VIAL.NEB. INHALATION (05:03)
[2019-03-17 05:46] LABS: Anion Gap 4 (5-15); BUN 16 mg/dL (7-18); Chloride 95 mmol/L (98-107); Creatinine, Serum 0.62 mg/dL (0.55-1.02); EST Glomerular Filtration Rate 111 mL/min (>60); Est Glom Filt Rate - Afr Amer 134 mL/min (>60); Estimated Creatinine Clearance 84.65 ml/min; Glucose 248 mg/dL (74-106); Potassium 3.9 mmol/L (3.5-5.1); Sodium Level 141 mmol/L (136-145)
[2019-03-17] MEDS: Heparin Injection (Vial) 5,000 UNIT/ML VIAL 5000 UNIT SC ×3 (06:45→21:17)
[2019-03-17] MEDS: Insulin Lispro 100 UNIT/ML INSULN.PEN SC ×4 (06:45→21:18)
[2019-03-17 07:01] LABS: Bedside Glucose 168 mg/dL (70-110)
[2019-03-17] MEDS: Ipratropium/Albuterol Sulfate 3 ML AMPUL.NEB INHALATION ×5 (07:19→23:25)
[2019-03-17] MEDS: Budesonide Respules 0.5 MG/2 ML AMPUL.NEB. INHALATION ×2 (07:20→19:18)
[2019-03-17] MEDS: amLODIPine 10 MG Tablet PO (09:17)
[2019-03-17] MEDS: hydroCHLOROthiazide 25 MG Tablet PO (09:17)
[2019-03-17] MEDS: Acetaminophen 325 MG Tablet 650 MG PO ×2 (09:17→17:47)
[2019-03-17] MEDS: Famotidine 20 MG Tablet PO ×2 (09:20→21:18)
[2019-03-17 12:11] LABS: Bedside Glucose 268 mg/dL (70-110)
--- NOTE | 2019-03-17 12:28 | PN_ITS ---
Patient Problems: Active and Suspected Problems (Last Reviewed 11/13/17 @ 09:36 by DILMA Ferreira) Elevated troponin (Acute) Acute respiratory failure with hypoxia and hypercapnia (Acute) Subjective: The patient was seen and examined at the bedside this morning. Events from the last 24 hours have been reviewed. The patient is currently afebrile, hemodynamically stable and maintaining appropriate oxygen saturations on 3 L/min via nasal cannula. Objective: The patient's most recent lab work, culture data and imaging studies have all been personally reviewed. Blood and urine cultures are pending. Sputum culture appeared to be normal respiratory carrie. Respiratory viral panel was negative. Surface echocardiogram revealed moderate to severe concentric LVH with an ejection fraction of 65% and evidence of diastolic dysfunction. Right ventricular systolic pressure was estimated to be 45 mmHg. - Physical Exam General: Alert, Cooperative, No apparent distress HEENT: Atraumatic, PERRLA, Normocephalic Oral: No Gingival or Mucosal Lesions/ Ulcerations Neck: Supple, No Nodes, Trachea Midline Lungs: No rhonchi, No rales, Diminished, Wheezes Cardiovascular: Regular rate, Regular Rhythm, Normal S1, Normal S2, No murmurs Abdomen: Bowel Sounds Present, Soft, Non Tender, Obese Extremities: No clubbing, No cyanosis, No edema Skin: No breakdown Musculoskeletal: No Muscle Wasting Lymphatic: No Cervical, Supraclavicular, or Inguinal Adenopathy Neurological: Cranial nerves II-XII grossly intact, Neuro grossly intact Psych/Mental Status: Normal Affect, Appropriate Vital Signs Temp Pulse Resp BP Pulse Ox 97.1 F L 95 16 151/75 H 92 03/17/19 09:14 03/17/19 11:01 03/17/19 11:01 03/17/19 09:14 03/17/19 09:14 Oxygen Flow Rate (L/min) 4 Oxygen Delivery Method Nasal Cannula Weight: 231 lb 7.766 oz Body Mass Index (BMI) 46.4 Intake and Output for Last 24 Hours 03/15/19 03/16/19 03/17/19 23:59 23:59 23:59 Intake Total 810 / 810 2 / 1951 960 / 960 Output Total 1700 / 1700 5700 / 5700 Balance -890 / -890 -3748 / -3748 960 / 960 Microbiology Past 72 Hours 03/12/19 20:40 Urine Culture - Final Urine Catheter - Catheter Culture exhibits no growth. 03/12/19 20:30 Blood Culture - Preliminary Blood Culture (Wb) - Other No growth in 48 hours. 03/12/19 20:30 Blood Culture - Preliminary Blood Culture (Wb) - Pic No growth in 48 hours. 03/12/19 14:50 Gram Stain - Final Sputum, Induced/Lukens Respiratory Culture - Final Laboratory Tests Past 24 Hrs 03/17/19 05:10 Sodium 141 Potassium 3.9 Chloride 95 L Carbon Dioxide 42.0 H Anion Gap 4 L BUN 16 Creatinine 0.62 Estim Creat Clear Calc 84.65 Est GFR (MDRD) Af Amer 134 Est GFR (MDRD) Non-Af 111 BUN/Creatinine Ratio 26.0 H Glucose 248 H Calcium 9.0 POC Glucose 03/17/19 03/17/19 03/16/19 11:17 06:44 21:25 POC Glucose 268 H 168 H 269 H 03/16/19 16:37 POC Glucose 194 H Clinical Impression(s) from Imaging Studies Chest X-Ray 03/12/19 11:53 IMPRESSION: Findings compatible with mild interstitial edema/congestive failure. No acute finding. Electronically Signed: Daniel Sanford MD at 12:35 EDT , Service support , Chest X-Ray 03/12/19 12:29 IMPRESSION: Endotracheal and NG tube placed with no complications. Stable cardiomegaly with hyperexpansion. Electronically Signed: Daniel Sanford MD at 13:31 EDT , Service support , KUB X-Ray 03/12/19 13:00 IMPRESSION: Endotracheal and NG tubes as described. No complications identified. Electronically Signed: Daniel Sanford MD at 13:34 EDT , Service support , Chest X-Ray 03/12/19 18:40 IMPRESSION: 1. Appropriate positioning of right-sided PICC line. 2. Unchanged appearance of cardiomegaly and mild pulmonary congestion. Electronically Signed: Emeli Flaherty MD at 19:23 EDT , Service support , Chest X-Ray 03/13/19 05:00 IMPRESSION: 1. Mild vascular congestion/edema similar accounting for differences in inflation. 2. Satisfactory position of right arm PICC. Electronically Signed: Andrea Guadalupe MD at 17:27 EDT , Service support , Medical Necessity - Tobacco Use Smoking Status: Former smoker Assessment/Plan All Active Problems (Last Reviewed 11/13/17 @ 09:36 by Danni Bahena NP-C) Acute respiratory failure with hypoxia (Acute) Elevated troponin (Acute) Acute respiratory failure with hypoxia and hypercapnia (Acute) History of tubal ligation (Resolved) History of section (Resolved) COPD with acute exacerbation (Acute) Hypertensive urgency (Ruled-out) Otitis media (Ruled-out) Tobacco abuse (Resolved) RECOMMENDATIONS: 1. Complete 7 days of empiric antimicrobials. 2. Continue scheduled bronchodilators and budesonide as ordered. 3. Wean supplemental oxygen to maintain saturations at or above 90%. 4. Encourage incentive spirometer use and mobilize patient as tolerated. 5. Perform walking oximetry study prior to consideration for discharge from the hospital. 6. The patient should follow-up with the pulmonary medicine clinic within 2 weeks of her discharge from the hospital. IMPRESSIONS: 1. Acute hypoxemic respiratory failure The patient has a reported history of both COPD and asthma. Although she was seen initially in the pulmonary medicine clinic, the patient never followed up, nor completed any of her testing. She is currently on treatment for community- acquired pneumonia. She does have an extensive smoking history and continues to smoke 1 pack of cigarettes daily. While it is reasonable to continue treatment for an exacerbation, her corticosteroids were discontinued due to the development of steroid-induced behavioral changes. She was then placed on scheduled budesonide and appears to be doing well from a clinical perspective. We will continue to wean supplemental oxygen as tolerated. Encourage incentive spirometer use and mobilize patient as tolerated. 2. Heart failure with preserved ejection fraction/pulmonary hypertension Can consider low-dose diuretic therapy, if the patient is unable to be weaned from supplemental oxygen. 3. Clinical concern for underlying sleep disordered breathing Recommend empiric use of BiPAP therapy while sleeping. The patient needs to follow-up with the pulmonary medicine clinic so that a diagnostic polysomnogram can be completed. 4. Continuous tobacco dependency/diabetes mellitus/morbid obesity/history of medical noncompliance/chronic pain syndrome Complicates care, management, recovery and prognosis. Continue home antihypertensive regimen. Nicotine replacement therapy can be offered to the patient while she is admitted to the hospital. This note was generated with [employer] dictation software. It may contain incorrect words, spelling, and punctuation that were not noted in checking the note before signing. DISPOSITION: Given the patient's lack of ongoing ICU needs, will sign off. Please call with any additional questions. Code Visit Inpatient E&M: 99207 Subs Hosp L2
--- NOTE | 2019-03-17 15:52 | PCM.PN.HOSP ---
Patient Problems: Active and Suspected Problems (Last Reviewed 11/13/17 @ 09:36 by DILMA Ferreira) Elevated troponin (Acute) Acute respiratory failure with hypoxia and hypercapnia (Acute) Subjective: Seen and examined. Patient is still mild short of breath, wheezing On 4 L of oxygen through nasal cannula. Patient has home oxygen. No fever or chills or tachypnea. Vitals/I&O's: Vital Signs Temp Pulse Resp BP Pulse Ox 98.3 F 89 16 146/90 H 93 03/17/19 14:34 03/17/19 14:34 03/17/19 14:34 03/17/19 14:34 03/17/19 14:34 Oxygen Flow Rate (L/min) 4 Oxygen Delivery Method Room Air Weight: 231 lb 7.766 oz Body Mass Index (BMI) 46.4 Intake and Output for Last 24 Hours 03/15/19 03/16/19 03/17/19 23:59 23:59 23:59 Intake Total 810 / 810 1952 / 1952 960 / 960 Output Total 1700 / 1700 5700 / 5700 Balance -890 / -890 -3748 / -3748 960 / 960 General: Alert, Oriented x3, Cooperative HEENT: Atraumatic, PERRLA, EOMI, Normocephalic Neck: Supple, No JVD, Negative Carotid Bruits Lungs: Diminished, Rhonchi, Short of Breath, Wheezes Cardiovascular: Regular rate, Regular Rhythm, Normal S1, Normal S2, No murmurs Abdomen: Bowel Sounds Present, Soft, Non Tender, Non-Distended Extremities: Capillary Refill Less than 3 Seconds, Edema Skin: No rashes, No breakdown Musculoskeletal: No Tenderness to Palpation of Joints or Extremities Neurological: Cranial nerves II-XII grossly intact Psych/Mental Status: Normal Affect, Appropriate Microbiology Past 72 Hours 03/12/19 20:40 Urine Catheter - Catheter Urine Culture - Final Culture exhibits no growth. 03/12/19 20:30 Blood Culture (Wb) - Other Blood Culture - Preliminary No growth in 48 hours. 03/12/19 20:30 Blood Culture (Wb) - Pic Blood Culture - Preliminary No growth in 48 hours. 03/12/19 14:50 Sputum, Induced/Lukens Gram Stain - Final 03/12/19 14:50 Sputum, Induced/Lukens Respiratory Culture - Final Laboratory Results 03/16/19 16:37: POC Glucose 194 H 03/16/19 21:25: POC Glucose 269 H 03/17/19 05:10: Sodium 141, Potassium 3.9, Chloride 95 L, Carbon Dioxide 42.0 H, Anion Gap 4 L, BUN 16, Creatinine 0.62, Estim Creat Clear Calc 84.65, Est GFR (MDRD) Af Amer 134, Est GFR (MDRD) Non-Af 111, BUN/Creatinine Ratio 26.0 H, Glucose 248 H, Calcium 9.0 03/17/19 06:44: POC Glucose 168 H 03/17/19 11:17: POC Glucose 268 H Current Medications Acetaminophen (Tylenol) 650 mg PO Q6H PRN PRN PRN Reason: pain/fever Last Admin: 03/17/19 09:17 Dose: 650 mg Albuterol Sulfate (Ventolin Aerosols) 2.5 mg INHALATION Q2H PRN PRN PRN Reason: SHORTNESS OF BREATH Last Admin: 03/17/19 05:03 Dose: 2.5 mg Albuterol/Ipratropium (Duoneb) 3 ml INHALATION Q4H.RT [facility] Last Admin: 03/17/19 15:02 Dose: 3 ml Amlodipine Besylate (Norvasc) 10 mg PO DAILY [facility] Last Admin: 03/17/19 09:17 Dose: 10 mg Bisacodyl (Dulcolax) 5 mg PO DAILY PRN PRN PRN Reason: Constipation Budesonide (Pulmicort Aerosol) 0.5 mg INHALATION BID.RT [facility] Last Admin: 03/17/19 07:20 Dose: 0.5 mg Dextrose (D50w Syringe) 0 gm IV X1 PRN; Protocol PRN Reason: Hypoglycemia Famotidine (Pepcid) 20 mg PO Q12 [facility] Last Admin: 03/17/19 09:20 Dose: 20 mg Glucagon () 1 mg IM .X1 PRN PRN Reason: Hypoglycemia Heparin Sodium (Porcine) (Heparin Na) 5,000 unit SC Q8 [facility] Last Admin: 03/17/19 14:35 Dose: 5,000 unit Hydralazine HCl (Apresoline Iv) 20 mg IV Q4H PRN PRN PRN Reason: SBP>160 Hydrochlorothiazide (Hctz) 25 mg PO DAILY [facility] Last Admin: 03/17/19 09:17 Dose: 25 mg Sodium Chloride () 250 mls @ 15 mls/hr IV .[id number] PRN PRN Reason: SALINE FLUSH Insulin Glargine (Lantus (Bkc)) 25 units SC DAILY@0600 [facility] Last Admin: 03/17/19 06:45 Dose: 25 units Insulin Human Lispro (Humalog Kwikpen (Bkc)) 0 unit SC ACHS [facility]; Protocol Last Admin: 03/17/19 11:20 Dose: 3 u Labetalol HCl (Trandate) 20 mg IV Q4H PRN PRN PRN Reason: SBP > 160 Last Admin: 03/15/19 03:20 Dose: 20 mg Magnesium Hydroxide (Milk Of Magnesia) 30 ml PO DAILY PRN PRN PRN Reason: Constipation Ondansetron HCl (Zofran) 4 mg IV Q8H PRN PRN PRN Reason: Nausea Sodium Chloride () 5 - 15 ml IV UD PRN PRN Reason: SALINE FLUSH Medical Necessity - Tobacco Use Smoking Status: Former smoker Assessment/Plan All Active Problems (Last Reviewed 11/13/17 @ 09:36 by Danni Bahena, CHIQUIS-C) Acute respiratory failure with hypoxia (Acute) Elevated troponin (Acute) Acute respiratory failure with hypoxia and hypercapnia (Acute) History of tubal ligation (Resolved) History of section (Resolved) COPD with acute exacerbation (Acute) Hypertensive urgency (Ruled-out) Otitis media (Ruled-out) Tobacco abuse (Resolved) This is a 48-year-old female with history of asthmatic bronchitis, not on oxygen, chronic nicotine use disorder, hypertension, type II DM, morbid obesity came to ED with several weeks of ongoing shortness of breath and fatigue worsened over 1 day along with fever, cough and severe respiratory acidosis and hypoxia consistent with acute hypoxic and hypercapnic respiratory failure 1. acute hypoxic and hypercapneic respiratory failure Secondary to COPD exacerbation Azithromycin is discontinued after 3 days On 3-4 L of oxygen. Need walking pulse oximetry before discharge. Anticipate tomorrow. 2. AECOPD Bronchodilators IV steroids discontinued and started on Pulmicort nebulization. Pulmonary clinic in 10/2017 and PFT and sleep study were ordered but patient never followed. Pulmonary consult reviewed. 3. Elevated troponin, chronic heart failure with preserved EF and moderate pulmonary hypertension: Most probably secondary to demand ischemia or perfusion mismatch. Echo was done and showed heart failure with preserved EF. EF 65%, impaired relaxation of LV. No regional wall motion abnormalities. Mildly dilated RV. Normal left atrium normal left atrium. RVSP 45 mmHg. On low-dose diuretic. Agitation with severe anxiety/chronic pain syndrome/untreated obstructive sleep apnea with history of morbid obesity Seroquel and Precedex drip has been discontinued. PRN Haldol if needed. 4. DM2 uncontrolled On Lantus and sliding scale insulin. On tube feed. Lantus dose is increased. Accu-Cheks are controlled in 150s. 5. VTE proph: SQ heparin. Microbiology Past 72 Hours 03/12/19 14:50 Sputum, Induced/Lukens Gram Stain - Final 03/12/19 14:50 Sputum, Induced/Lukens Respiratory Culture - Preliminary Appears to be normal respiratory carrie. Further studies to follow. 03/12/19 14:50 Mucosa - Nose Respiratory Panel (PCR) - Final Clinical Impression(s) from Imaging Studies Chest X-Ray 03/12/19 11:53 IMPRESSION: Findings compatible with mild interstitial edema/congestive failure. No acute finding. Chest X-Ray 03/13/19 05:00 IMPRESSION: 1. Mild vascular congestion/edema similar accounting for differences in inflation. 2. Satisfactory position of right arm PICC. Microbiology Past 72 Hours 03/12/19 20:40 Urine Catheter - Catheter Urine Culture - Final Culture exhibits no growth. 03/12/19 20:30 Blood Culture (Wb) - Other Blood Culture - Preliminary No growth in 48 hours. 03/12/19 20:30 Blood Culture (Wb) - Pic Blood Culture - Preliminary No growth in 48 hours. 03/12/19 14:50 Sputum, Induced/Lukens Gram Stain - Final 03/12/19 14:50 Sputum, Induced/Lukens Respiratory Culture - Final 03/12/19 14:50 Mucosa - Nose Respiratory Panel (PCR) - Final Laboratory Results 03/15/19 11:45: POC Glucose 289 H 03/15/19 17:52: POC Glucose 166 H 03/15/19 22:10: POC Glucose 169 H 03/16/19 06:09: POC Glucose 117 H Active Medications Acetaminophen (Tylenol) 650 mg PO Q6H PRN PRN PRN Reason: pain/fever Last Admin: 03/17/19 09:17 Dose: 650 mg Albuterol Sulfate (Ventolin Aerosols) 2.5 mg INHALATION Q2H PRN PRN PRN Reason: SHORTNESS OF BREATH Last Admin: 03/17/19 05:03 Dose: 2.5 mg Albuterol/Ipratropium (Duoneb) 3 ml INHALATION Q4H.RT [facility] Last Admin: 03/17/19 15:02 Dose: 3 ml Amlodipine Besylate (Norvasc) 10 mg PO DAILY [facility] Last Admin: 03/17/19 09:17 Dose: 10 mg Bisacodyl (Dulcolax) 5 mg PO DAILY PRN PRN PRN Reason: Constipation Budesonide (Pulmicort Aerosol) 0.5 mg INHALATION BID.RT [facility] Last Admin: 03/17/19 07:20 Dose: 0.5 mg Dextrose (D50w Syringe) 0 gm IV X1 PRN; Protocol PRN Reason: Hypoglycemia Famotidine (Pepcid) 20 mg PO Q12 [facility] Last Admin: 03/17/19 09:20 Dose: 20 mg Glucagon () 1 mg IM .X1 PRN PRN Reason: Hypoglycemia Heparin Sodium (Porcine) (Heparin Na) 5,000 unit SC Q8 [facility] Last Admin: 03/17/19 14:35 Dose: 5,000 unit Hydralazine HCl (Apresoline Iv) 20 mg IV Q4H PRN PRN PRN Reason: SBP>160 Hydrochlorothiazide (Hctz) 25 mg PO DAILY [facility] Last Admin: 03/17/19 09:17 Dose: 25 mg Sodium Chloride () 250 mls @ 15 mls/hr IV .[id number] PRN PRN Reason: SALINE FLUSH Insulin Glargine (Lantus (Bkc)) 25 units SC DAILY@0600 [facility] Last Admin: 03/17/19 06:45 Dose: 25 units Insulin Human Lispro (Humalog Kwikpen (Bkc)) 0 unit SC ACHS [facility]; Protocol Last Admin: 03/17/19 11:20 Dose: 3 u Labetalol HCl (Trandate) 20 mg IV Q4H PRN PRN PRN Reason: SBP > 160 Last Admin: 03/15/19 03:20 Dose: 20 mg Magnesium Hydroxide (Milk Of Magnesia) 30 ml PO DAILY PRN PRN PRN Reason: Constipation Ondansetron HCl (Zofran) 4 mg IV Q8H PRN PRN PRN Reason: Nausea Sodium Chloride () 5 - 15 ml IV UD PRN PRN Reason: SALINE FLUSH Code Visit Inpatient E&M: 51369 Subs Hosp L2
--- NOTE | 2019-03-17 15:55 | PN_ITS ---
Patient Problems: Active and Suspected Problems (Last Reviewed 11/13/17 @ 09:36 by DILMA Ferreira) Elevated troponin (Acute) Acute respiratory failure with hypoxia and hypercapnia (Acute) Subjective: Seen and examined. Patient is still mild short of breath, wheezing On 4 L of oxygen through nasal cannula. Patient has home oxygen. No fever or chills or tachypnea. Vitals/I&O's: Vital Signs Temp Pulse Resp BP Pulse Ox 98.3 F 89 16 146/90 H 93 03/17/19 14:34 03/17/19 14:34 03/17/19 14:34 03/17/19 14:34 03/17/19 14:34 Oxygen Flow Rate (L/min) 4 Oxygen Delivery Method Room Air Weight: 231 lb 7.766 oz Body Mass Index (BMI) 46.4 Intake and Output for Last 24 Hours 03/15/19 03/16/19 03/17/19 23:59 23:59 23:59 Intake Total 810 / 810 1952 / 1952 960 / 960 Output Total 1700 / 1700 5700 / 5700 Balance -890 / -890 -3748 / -3748 960 / 960 General: Alert, Oriented x3, Cooperative HEENT: Atraumatic, PERRLA, EOMI, Normocephalic Neck: Supple, No JVD, Negative Carotid Bruits Lungs: Diminished, Rhonchi, Short of Breath, Wheezes Cardiovascular: Regular rate, Regular Rhythm, Normal S1, Normal S2, No murmurs Abdomen: Bowel Sounds Present, Soft, Non Tender, Non-Distended Extremities: Capillary Refill Less than 3 Seconds, Edema Skin: No rashes, No breakdown Musculoskeletal: No Tenderness to Palpation of Joints or Extremities Neurological: Cranial nerves II-XII grossly intact Psych/Mental Status: Normal Affect, Appropriate Microbiology Past 72 Hours 03/12/19 20:40 Urine Catheter - Catheter Urine Culture - Final Culture exhibits no growth. 03/12/19 20:30 Blood Culture (Wb) - Other Blood Culture - Preliminary No growth in 48 hours. 03/12/19 20:30 Blood Culture (Wb) - Pic Blood Culture - Preliminary No growth in 48 hours. 03/12/19 14:50 Sputum, Induced/Lukens Gram Stain - Final 03/12/19 14:50 Sputum, Induced/Lukens Respiratory Culture - Final Laboratory Results 03/16/19 16:37: POC Glucose 194 H 03/16/19 21:25: POC Glucose 269 H 03/17/19 05:10: Sodium 141, Potassium 3.9, Chloride 95 L, Carbon Dioxide 42.0 H, Anion Gap 4 L, BUN 16, Creatinine 0.62, Estim Creat Clear Calc 84.65, Est GFR (MDRD) Af Amer 134, Est GFR (MDRD) Non-Af 111, BUN/Creatinine Ratio 26.0 H, Glucose 248 H, Calcium 9.0 03/17/19 06:44: POC Glucose 168 H 03/17/19 11:17: POC Glucose 268 H Current Medications Acetaminophen (Tylenol) 650 mg PO Q6H PRN PRN PRN Reason: pain/fever Last Admin: 03/17/19 09:17 Dose: 650 mg Albuterol Sulfate (Ventolin Aerosols) 2.5 mg INHALATION Q2H PRN PRN PRN Reason: SHORTNESS OF BREATH Last Admin: 03/17/19 05:03 Dose: 2.5 mg Albuterol/Ipratropium (Duoneb) 3 ml INHALATION Q4H.RT [facility] Last Admin: 03/17/19 15:02 Dose: 3 ml Amlodipine Besylate (Norvasc) 10 mg PO DAILY [facility] Last Admin: 03/17/19 09:17 Dose: 10 mg Bisacodyl (Dulcolax) 5 mg PO DAILY PRN PRN PRN Reason: Constipation Budesonide (Pulmicort Aerosol) 0.5 mg INHALATION BID.RT [facility] Last Admin: 03/17/19 07:20 Dose: 0.5 mg Dextrose (D50w Syringe) 0 gm IV X1 PRN; Protocol PRN Reason: Hypoglycemia Famotidine (Pepcid) 20 mg PO Q12 [facility] Last Admin: 03/17/19 09:20 Dose: 20 mg Glucagon () 1 mg IM .X1 PRN PRN Reason: Hypoglycemia Heparin Sodium (Porcine) (Heparin Na) 5,000 unit SC Q8 [facility] Last Admin: 03/17/19 14:35 Dose: 5,000 unit Hydralazine HCl (Apresoline Iv) 20 mg IV Q4H PRN PRN PRN Reason: SBP>160 Hydrochlorothiazide (Hctz) 25 mg PO DAILY [facility] Last Admin: 03/17/19 09:17 Dose: 25 mg Sodium Chloride () 250 mls @ 15 mls/hr IV .[id number] PRN PRN Reason: SALINE FLUSH Insulin Glargine (Lantus (Bkc)) 25 units SC DAILY@0600 [facility] Last Admin: 03/17/19 06:45 Dose: 25 units Insulin Human Lispro (Humalog Kwikpen (Bkc)) 0 unit SC ACHS [facility]; Protocol Last Admin: 03/17/19 11:20 Dose: 3 u Labetalol HCl (Trandate) 20 mg IV Q4H PRN PRN PRN Reason: SBP > 160 Last Admin: 03/15/19 03:20 Dose: 20 mg Magnesium Hydroxide (Milk Of Magnesia) 30 ml PO DAILY PRN PRN PRN Reason: Constipation Ondansetron HCl (Zofran) 4 mg IV Q8H PRN PRN PRN Reason: Nausea Sodium Chloride () 5 - 15 ml IV UD PRN PRN Reason: SALINE FLUSH Medical Necessity - Tobacco Use Smoking Status: Former smoker Assessment/Plan All Active Problems (Last Reviewed 11/13/17 @ 09:36 by Danni Bahena, CHIQUIS-C) Acute respiratory failure with hypoxia (Acute) Elevated troponin (Acute) Acute respiratory failure with hypoxia and hypercapnia (Acute) History of tubal ligation (Resolved) History of section (Resolved) COPD with acute exacerbation (Acute) Hypertensive urgency (Ruled-out) Otitis media (Ruled-out) Tobacco abuse (Resolved) This is a 48-year-old female with history of asthmatic bronchitis, not on oxygen, chronic nicotine use disorder, hypertension, type II DM, morbid obesity came to ED with several weeks of ongoing shortness of breath and fatigue worsened over 1 day along with fever, cough and severe respiratory acidosis and hypoxia consistent with acute hypoxic and hypercapnic respiratory failure 1. acute hypoxic and hypercapneic respiratory failure * Secondary to COPD exacerbation * Azithromycin is discontinued after 3 days * On 3-4 L of oxygen. * Need walking pulse oximetry before discharge. Anticipate tomorrow. 2. AECOPD * Bronchodilators IV steroids discontinued and started on Pulmicort nebulization. Pulmonary clinic in 10/2017 and PFT and sleep study were ordered but patient never followed. Pulmonary consult reviewed. 3. Elevated troponin, chronic heart failure with preserved EF and moderate pulmonary hypertension: Most probably secondary to demand ischemia or perfusion mismatch. Echo was done and showed heart failure with preserved EF. EF 65%, impaired relaxation of LV. No regional wall motion abnormalities. Mildly dilated RV. Normal left atrium normal left atrium. RVSP 45 mmHg. On low-dose diuretic. Agitation with severe anxiety/chronic pain syndrome/untreated obstructive sleep apnea with history of morbid obesity * Seroquel and Precedex drip has been discontinued. PRN Haldol if needed. 4. DM2 uncontrolled * On Lantus and sliding scale insulin. On tube feed. Lantus dose is increased. Accu-Cheks are controlled in 150s. 5. VTE proph: SQ heparin. Microbiology Past 72 Hours 03/12/19 14:50 Sputum, Induced/Lukens Gram Stain - Final 03/12/19 14:50 Sputum, Induced/Lukens Respiratory Culture - Preliminary Appears to be normal respiratory carrie. Further studies to follow. 03/12/19 14:50 Mucosa - Nose Respiratory Panel (PCR) - Final Clinical Impression(s) from Imaging Studies Chest X-Ray 03/12/19 11:53 IMPRESSION: Findings compatible with mild interstitial edema/congestive failure. No acute finding. Chest X-Ray 03/13/19 05:00 IMPRESSION: 1. Mild vascular congestion/edema similar accounting for differences in inflation. 2. Satisfactory position of right arm PICC. Microbiology Past 72 Hours 03/12/19 20:40 Urine Catheter - Catheter Urine Culture - Final Culture exhibits no growth. 03/12/19 20:30 Blood Culture (Wb) - Other Blood Culture - Preliminary No growth in 48 hours. 03/12/19 20:30 Blood Culture (Wb) - Pic Blood Culture - Preliminary No growth in 48 hours. 03/12/19 14:50 Sputum, Induced/Lukens Gram Stain - Final 03/12/19 14:50 Sputum, Induced/Lukens Respiratory Culture - Final 03/12/19 14:50 Mucosa - Nose Respiratory Panel (PCR) - Final Laboratory Results 03/15/19 11:45: POC Glucose 289 H 03/15/19 17:52: POC Glucose 166 H 03/15/19 22:10: POC Glucose 169 H 03/16/19 06:09: POC Glucose 117 H Active Medications Acetaminophen (Tylenol) 650 mg PO Q6H PRN PRN PRN Reason: pain/fever Last Admin: 03/17/19 09:17 Dose: 650 mg Albuterol Sulfate (Ventolin Aerosols) 2.5 mg INHALATION Q2H PRN PRN PRN Reason: SHORTNESS OF BREATH Last Admin: 03/17/19 05:03 Dose: 2.5 mg Albuterol/Ipratropium (Duoneb) 3 ml INHALATION Q4H.RT [facility] Last Admin: 03/17/19 15:02 Dose: 3 ml Amlodipine Besylate (Norvasc) 10 mg PO DAILY [facility] Last Admin: 03/17/19 09:17 Dose: 10 mg Bisacodyl (Dulcolax) 5 mg PO DAILY PRN PRN PRN Reason: Constipation Budesonide (Pulmicort Aerosol) 0.5 mg INHALATION BID.RT [facility] Last Admin: 03/17/19 07:20 Dose: 0.5 mg Dextrose (D50w Syringe) 0 gm IV X1 PRN; Protocol PRN Reason: Hypoglycemia Famotidine (Pepcid) 20 mg PO Q12 [facility] Last Admin: 03/17/19 09:20 Dose: 20 mg Glucagon () 1 mg IM .X1 PRN PRN Reason: Hypoglycemia Heparin Sodium (Porcine) (Heparin Na) 5,000 unit SC Q8 [facility] Last Admin: 03/17/19 14:35 Dose: 5,000 unit Hydralazine HCl (Apresoline Iv) 20 mg IV Q4H PRN PRN PRN Reason: SBP>160 Hydrochlorothiazide (Hctz) 25 mg PO DAILY [facility] Last Admin: 03/17/19 09:17 Dose: 25 mg Sodium Chloride () 250 mls @ 15 mls/hr IV .[id number] PRN PRN Reason: SALINE FLUSH Insulin Glargine (Lantus (Bkc)) 25 units SC DAILY@0600 [facility] Last Admin: 03/17/19 06:45 Dose: 25 units Insulin Human Lispro (Humalog Kwikpen (Bkc)) 0 unit SC ACHS [facility]; Protocol Last Admin: 03/17/19 11:20 Dose: 3 u Labetalol HCl (Trandate) 20 mg IV Q4H PRN PRN PRN Reason: SBP > 160 Last Admin: 03/15/19 03:20 Dose: 20 mg Magnesium Hydroxide (Milk Of Magnesia) 30 ml PO DAILY PRN PRN PRN Reason: Constipation Ondansetron HCl (Zofran) 4 mg IV Q8H PRN PRN PRN Reason: Nausea Sodium Chloride () 5 - 15 ml IV UD PRN PRN Reason: SALINE FLUSH Code Visit Inpatient E&M: 35782 Subs Hosp L2
[2019-03-17 16:20] LABS: Bedside Glucose 214 mg/dL (70-110)
[2019-03-17] MEDS: Ondansetron 4 MG/2 ML Vial IV (17:47)
[2019-03-17 22:46] LABS: Bedside Glucose 225 mg/dL (70-110)
[2019-03-18] VITALS (11 sets, daily range): BP systolic 148–162; BP diastolic 74–84; PULSE 87–100; RESP 14–22; TEMP 36.5–37.1; O2SAT 86–97
[2019-03-18] MEDS: Ipratropium/Albuterol Sulfate 3 ML AMPUL.NEB INHALATION ×3 (03:34→10:42)
--- NOTE | 2019-03-18 04:22 | CPS ---
pt declines use of bipap tonight
[2019-03-18] MEDS: Acetaminophen 325 MG Tablet 650 MG PO (06:24)
[2019-03-18] MEDS: Heparin Injection (Vial) 5,000 UNIT/ML VIAL 5000 UNIT SC (06:26)
[2019-03-18] MEDS: Insulin Lispro 100 UNIT/ML INSULN.PEN SC (06:53)
[2019-03-18 07:11] LABS: Bedside Glucose 296 mg/dL (70-110)
[2019-03-18] MEDS: Budesonide Respules 0.5 MG/2 ML AMPUL.NEB. INHALATION (07:13)
[2019-03-18] MEDS: hydroCHLOROthiazide 25 MG Tablet PO (09:47)
[2019-03-18] MEDS: amLODIPine 10 MG Tablet PO (09:47)
[2019-03-18] MEDS: Famotidine 20 MG Tablet PO (09:47)
--- NOTE | 2019-03-18 11:40 | DS.PCM_ITS ---
Discharge Date and Diagnosis Date of Admission: 03/12/19 Date of Discharge: 03/18/19 - Primary Discharge Diagnosis Active and Suspected Problems (Last Reviewed 11/13/17 @ 09:36 by DILMA Ferreira) Elevated troponin (Acute) Acute respiratory failure with hypoxia and hypercapnia (Acute) - Secondary Discharge Diagnosis Chronic Problems (Last Reviewed 11/13/17 @ 09:36 by DILMA Ferreira) Morbid obesity with BMI of 40.0-44.9, adult (Chronic) Hypertension (Chronic) COPD exacerbation (Chronic) Tobacco abuse (Chronic) Hypersomnia (Chronic) Benign essential hypertension (Chronic) Herniated thoracic disc without myelopathy (Chronic) Chronic back pain (Chronic) COPD (Chronic) Asthma (Chronic) GERD (gastroesophageal reflux disease) (Chronic) Obesity (BMI 30-39.9) (Chronic) Diabetes mellitus, type II (Chronic) Hospital Course and Treatment Operations: None Summary of Care Provided: [] This is a 48-year-old female with history of asthmatic bronchitis, not on oxygen, chronic nicotine use disorder, hypertension, type II DM, morbid obesity came to ED with several weeks of ongoing shortness of breath and fatigue worsened over 1 day along with fever, cough and severe respiratory acidosis and hypoxia consistent with acute hypoxic and hypercapnic respiratory failure 1. acute hypoxic and hypercapneic respiratory failure * Secondary to COPD exacerbation * Azithromycin is discontinued after 3 days * On 3-4 L of oxygen. Patient has home oxygen. Patient requires home oxygen with portability and is ambulatory in home in the community. * On walking pulse oximetry, pulse ox 91% on 4 L of oxygen, at rest 86% on room air. 2. AECOPD * Bronchodilators IV steroids discontinued and started on Pulmicort nebulization. Pulmonary clinic in 10/2017 and PFT and sleep study were ordered but patient never followed. Pulmonary consult reviewed. Prescription was given for Symbicort. Patient has DuoNeb nebulization and albuterol inhaler at home. Prednisone was not prescribed as patient gets psychotic symptoms, anxiety, hallucinations and agitation on the steroid. * Follow-up with pulmonary clinic, with nurse practitioner Danni Flaherty in [address] Dupont in 4 weeks. 3. Elevated troponin, chronic heart failure with preserved EF and moderate pulmonary hypertension: Most probably secondary to demand ischemia or perfusion mismatch. Echo was done and showed heart failure with preserved EF. EF 65%, impaired relaxation of LV. No regional wall motion abnormalities. Mildly dilated RV. Normal left atrium normal left atrium. RVSP 45 mmHg. On low-dose diuretic. Agitation with severe anxiety/chronic pain syndrome/untreated obstructive sleep apnea with history of morbid obesity * Seroquel and Precedex drip has been discontinued. PRN Haldol if needed. 4. DM2 uncontrolled * On Lantus and sliding scale insulin. On tube feed. Prescription was given for glucometer supplies. Lantus dose increased and prescription was given for Lantus insulin. 5. VTE proph: SQ heparin. Discharge medication reconciliation done. Discharge follow-up instructions completed. Discharge process discussed with the patient and all questions were answered to patient's satisfaction. Patient requested Xanax prescription but was asked to follow with PCP for further evaluation. Total time spent, exact 35 minutes on discharge meds reconciliation, examination, review of imaging and blood test and discussion with the patient on follow-up instructions. Subjective: Seen and examined. Patient does not have any complaint. No shortness of breath. Patient is comfortable at rest. Wants to go home. Objective: General: Alert, Oriented x3, Cooperative HEENT: Atraumatic, PERRLA, EOMI, Normocephalic Neck: Supple, No JVD, Negative Carotid Bruits Lungs: Air entry diminished bilaterally, chronic in nature, Rhonchi, Short of Breath, Wheezes has much improved, occasional. Cardiovascular: Regular rate, Regular Rhythm, Normal S1, Normal S2, No murmurs Abdomen: Bowel Sounds Present, Soft, Non Tender, Non-Distended Extremities: Capillary Refill Less than 3 Seconds, ankle edema resolved. Skin: No rashes, No breakdown Musculoskeletal: No Tenderness to Palpation of Joints or Extremities Neurological: Cranial nerves II-XII grossly intact Psych/Mental Status: Normal Affect, Appropriate - Physical Exam Vital Signs Temp Pulse Resp BP Pulse Ox 97.7 F L 87 18 156/74 H 93 03/18/19 10:00 03/18/19 10:42 03/18/19 10:42 03/18/19 10:00 03/18/19 10:42 Oxygen Flow Rate (L/min) [ 6 AMBULATING on Room Air] Oxygen Flow Rate (L/min) [ 4 AMBULATION with Oxygen] Oxygen Flow Rate (L/min) [At 4 REST on Room Air] Oxygen Flow Rate (L/min) 3 Oxygen Delivery Method Nasal Cannula Weight: 227 lb 1.218 oz Body Mass Index (BMI) 46.4 Intake and Output for Last 24 Hours 03/16/19 03/17/19 03/18/19 23:59 23:59 23:59 Intake Total 1951 960 / 960 360 / 360 Output Total 5700 / 5700 Balance -3748 / -3748 960 / 960 360 / 360 Microbiology Past 72 Hours 03/12/19 20:30 Blood Culture - Final Blood Culture (Wb) - Other No growth in 5 days. 03/12/19 20:30 Blood Culture - Final Blood Culture (Wb) - Pic No growth in 5 days. 03/12/19 20:40 Urine Culture - Final Urine Catheter - Catheter Culture exhibits no growth. POC Glucose 03/18/19 03/17/19 03/17/19 06:30 21:13 16:13 POC Glucose 296 H 225 H 214 H 03/17/19 11:17 POC Glucose 268 H Discharge Activity: May Not Drive Call your doctor if you observe: Fever of 101 or Higher, Inability to urinate, Inability to have a bowel movement, Fainting spells, Swelling in the ankles, Chest pain, Increased palpitations (irregular heartbeat) Home Medications: Medications to take at Discharge Amlodipine [Norvasc] 10 mg PO DAILY 08/13/15 Lisinopril [Zestril] 40 mg PO DAILY 02/11/16 Hydrochlorothiazide [Hctz] 25 mg PO DAILY 10/26/17 Oxygen, Home [Home Oxygen] 2 - 4 lpm NASAL PRN PRN 10/26/17 Albuterol IH (ProAir) [Proair Hfa] 2 puff INHALATION Q4H PRN PRN #1 inhaler 10/29/17 epinephrine 1 mg/mL injection kit 1 mg IM Q10M PRN #1 ea 11/13/17 Ipratropium/Albuterol Sulfate [Duoneb] 3 ml INHALATION 4X/DAY 03/10/18 Omeprazole 1 tab PO BREAKFAST 06/09/18 Oxycodone [Oxyir] 5 mg PO Q4H PRN PRN 5 Days #14 tablet 06/10/18 Albuterol Aerosols [Ventolin Aerosols] 2.5 mg INHALATION Q4H PRN PRN 03/13/19 Albuterol Sulfate [Ventolin Hfa] 90 mcg INHALATION Q4H PRN 03/13/19 Budesonide/Formoterol 160/4.5 [Symbicort 160/4.5 Mcg Inhaler (SP)] 2 puff INHALATION BID #1 inhaler 03/18/19 Guaifenesin [Mucinex] 1,200 mg PO BID #14 tab 03/18/19 Insulin Glargine,Hum.rec.anlog [Basaglar Kwikpen U-100] 35 unit SQ DAILY #2 insuln.pen 03/18/19 Following Prescrptions Were Given to Patient: Budesonide/Formoterol 160/4.5 [Symbicort 160/4.5 Mcg Inhaler (SP)] 2 puff INHALATION BID #1 inhaler Guaifenesin [Mucinex] 1,200 mg PO BID #14 tab Other Amb Orders: Glucometer Location: None Selected Primary Care Physician: Rita Melton MD [Primary Care Provider] - Please follow up with your Primary Care Physician in: in 1-2 week Please Follow Up With: Danni Bahena NP-C When: in 2 weeks Please Follow Up With: Herminio Dupont MD When: in 4 week Medical Necessity - Tobacco Use Smoking Status: Former smoker Meaningful Use Info Meaningful Use Diagnoses (Choose all that apply): None applicable Code Visit Inpatient E&M: 70773 Disch Hosp
--- NOTE | 2019-03-18 11:40 | DCINST_ITS ---
- Discharge Diagnoses Current Active Problems: Current Active and Chronic Problems (Last Reviewed 11/13/17 @ 09:36 by DILMA Ferreira) Elevated troponin (Acute) Acute respiratory failure with hypoxia and hypercapnia (Acute) COPD exacerbation (Chronic) You will use the following diet at home:: Calorie/Carbohydrate Controlled (specify 1200, 1400, etc) Your food should be the consistency of: Regular Discharge Activity: May Not Drive Call your doctor if you observe: Fever of 101 or Higher, Inability to urinate, Inability to have a bowel movement, Fainting spells, Swelling in the ankles, Chest pain, Increased palpitations (irregular heartbeat) Allergies/Adverse Reactions: Allergies aspirin Allergy (Verified 03/12/19 13:56) Anaphylaxis cyclobenzaprine HCl [From Flexeril] Allergy (Verified 03/12/19 13:56) Rash levofloxacin [From Levaquin] Allergy (Verified 03/12/19 13:56) Rash naproxen [From Naprosyn] Allergy (Verified 03/12/19 13:56) Anaphylaxis bupropion HCl [From Wellbutrin] Adverse Reaction (Verified 03/12/19 13:56) nightmares NIGHTMARES doxycycline Adverse Reaction (Verified 03/12/19 13:56) Diarrhea Medications to take at Discharge Amlodipine [Norvasc] 10 mg PO DAILY 08/13/15 Lisinopril [Zestril] 40 mg PO DAILY 02/11/16 Hydrochlorothiazide [Hctz] 25 mg PO DAILY 10/26/17 Oxygen, Home [Home Oxygen] 2 - 4 lpm NASAL PRN PRN 10/26/17 Albuterol IH (ProAir) [Proair Hfa] 2 puff INHALATION Q4H PRN PRN #1 inhaler 10/29/17 epinephrine 1 mg/mL injection kit 1 mg IM Q10M PRN #1 ea 11/13/17 Ipratropium/Albuterol Sulfate [Duoneb] 3 ml INHALATION 4X/DAY 03/10/18 Omeprazole 1 tab PO BREAKFAST 06/09/18 Oxycodone [Oxyir] 5 mg PO Q4H PRN PRN 5 Days #14 tablet 06/10/18 Albuterol Aerosols [Ventolin Aerosols] 2.5 mg INHALATION Q4H PRN PRN 03/13/19 Albuterol Sulfate [Ventolin Hfa] 90 mcg INHALATION Q4H PRN 03/13/19 Budesonide/Formoterol 160/4.5 [Symbicort 160/4.5 Mcg Inhaler (SP)] 2 puff INHALATION BID #1 inhaler 03/18/19 Guaifenesin [Mucinex] 1,200 mg PO BID #14 tab 03/18/19 Insulin Glargine,Hum.rec.anlog [Basaglar Kwikpen U-100] 35 unit SQ DAILY #2 insuln.pen 03/18/19 The following prescriptions were given: Budesonide/Formoterol 160/4.5 [Symbicort 160/4.5 Mcg Inhaler (SP)] 2 puff INHALATION BID #1 inhaler Guaifenesin [Mucinex] 1,200 mg PO BID #14 tab Primary Care Physician: Rita Melton MD [Primary Care Provider] - Please follow up with your Primary Care Physician in: in 1-2 week Test Results: Test results from this visit will be discussed in further detail at your follow- up appointment, if applicable. Please Follow Up With: Danni Bahena NP-C When: in 2 weeks Please Follow Up With: Herminio Dupont MD When: in 4 week
--- NOTE | 2019-03-18 11:49 | NURSING ---
pt on ra and was 86%. o2 on at 2l and went up to 91-92% though with ambulation pt only was 88% and o2 up to 4l to keep above 90%
--- NOTE | 2019-03-18 12:02 | CASEMGMT ---
Call to Jeramie at [facility] and they state that pt was with [facility] and was transferred over to them but they do not take Lira. She states she will be calling pt regarding same. She states that pt's order was for 2 liters continuous home oxygen. This DOC CM to room to updated pt on all at this time and she states that she wanted to transfer to [facility] and states that she had started process with [facility] but according to [facility] this had not been started. Pt provided with [facility] contact info at this time and pt states will call to have transferred. Call to Reshma at [facility] and updated on all-voices understanding, and she states to just send the order like a new order to them at this time. Referral faxed to [facility] at this time. Pt states that she does have a tank to get home on. Call back to [facility] to advise of same, voice understanding. F2F to be faxed once obtained. Glenroy ROACH CM
== END 2019-03-18 12:45 | disposition home or self-care (01) | DRG 133 ==
LOC: ED 13:07 → ICU 13:38 → PCU 03-16 18:09
PROVIDERS: Admitting Provider Internal Medicine; Emergency Provider Emergency Medicine; Family Provider Internal Medicine; PCP Internal Medicine; Visit Provider Internal Medicine
DX: J96.01 Acute respiratory failure with hypoxia (principal); J44.1 Chronic obstructive pulmonary disease with (acute) exacerbation; E66.01 Morbid (severe) obesity due to excess calories; Z68.42 Body mass index [BMI] 45.0-49.9, adult; E11.65 Type 2 diabetes mellitus with hyperglycemia; J96.02 Acute respiratory failure with hypercapnia; Z99.81 Dependence on supplemental oxygen; I11.0 Hypertensive heart disease with heart failure; I50.32 Chronic diastolic (congestive) heart failure; G89.4 Chronic pain syndrome; G47.33 Obstructive sleep apnea (adult) (pediatric); K21.9 Gastro-esophageal reflux disease without esophagitis; G89.29 Other chronic pain; M54.9 Dorsalgia, unspecified; I27.20 Pulmonary hypertension, unspecified; Z87.891 Personal history of nicotine dependence; I24.8 Other forms of acute ischemic heart disease
CPT/HCPCS: 31500; 31720; 36569; 36600; 51702; 71045; 74018; 80048; 80053; 82803; 82962; 83605; 83880; 84484; 85025; 85610; 85730; 87040; 87070; 87086; 87205; 87633; 93005; 93306; 94002; 94003; 94640; 97162; 97166; 97530; 97802; 99251; 99285; J7030; J7050; Q9957; A4216; C8929; G0463; J1940; J2405; J3490

== ENCOUNTER 2019-03-30 08:29 | Inpatient (IN) | payer MEDICAID, SELFPAY ==
[2019-03-12 21:35] VITALS: BMI 46.4
[2019-03-30] VITALS (32 sets, daily range): BP systolic 136–195; BP diastolic 95–119; PULSE 78–110; RESP 14–29; TEMP 36.6–37.1; O2SAT 76–98; BMI 42.0; BMI 43.1
--- NOTE | 2019-03-30 08:43 | EKG12_ITS ---
Test Reason : SOB Blood Pressure : / mmHG Vent. Rate : 097 BPM Atrial Rate : 097 BPM P-R Int : 136 ms QRS Dur : 084 ms QT Int : 330 ms P-R-T Axes : 066 085 055 degrees QTc Int : 419 ms Normal sinus rhythm Normal ECG Confirmed by SASKIA COBURN ([id number]), staff editor DOV LONGO ([id number]) on 04/02/2019 11:08:30 AM Referred By: [place] Confirmed By:SASKIA COBURN
--- NOTE | 2019-03-30 08:55 | RAD_ITS ---
STUDY: X-RAY CHEST REASON FOR EXAM: Female, 48 years old. Dyspnea. TECHNIQUE: Single AP portable view of the chest. COMPARISON: Comparison is made with prior examination dated March 13, 2019. FINDINGS: EKG electrodes are seen. Minimal degree of increased markings at the right lung base. This may represent either atelectasis and/or early infiltrate. Follow-up is recommended. There is no demonstrated pleural abnormality. There is mild cardiac enlargement. Normal mediastinum and milton. Normal visualized pulmonary arteries. Normal visualized aortic arch and descending thoracic aorta. Normal visualized thoracic spine. Normal visualized ribs, clavicles, and shoulders. There is no demonstrated abnormality of the visualized soft tissue structures of the upper abdomen. RAD/Chest 1 View (Portable) IMPRESSION: Mild degree of increased markings at the right lung base suggestive of atelectasis and/or early infiltrate. Follow-up is recommended. Electronically Signed: Luis Mistry, at 9:10 EDT , Service support ,
[2019-03-30] MEDS: Ipratropium/Albuterol Sulfate 3 ML AMPUL.NEB INHALATION ×4 (09:02→23:42)
[2019-03-30] MEDS: MethylPREDNISolone 125 MG/2 ML Vial 60 MG IV (09:02)
[2019-03-30] MEDS: 0.9% Normal Saline 1,000 ML 150 ML IV (09:03)
[2019-03-30 09:32] LABS: Absolute Lymphocyte Count 2.16 X10^3/ul (0.83-4.51); Absolute Neutrophil Count 8.7 X10^3/uL (2.0-7.7); Basophil# 0.05 X10^3/uL; Basophil% 0.4 % (0-1); Eosinophil# 0.08 X10^3/uL; Eosinophils% 0.7 % (0-5); Hematocrit 49.1 % (37-47); Hemoglobin 15.1 g/dl (12.0-15.0); Lymphocyte # 2.16 X10^3/ul (4.0); Lymphocyte % 17.7 % (19-41); Mean Corp Hgb Conc 30.8 g/gl (32-36); Mean Corpuscular Hgb 28.6 pg (27.0-32.0); Mean Platelet Vol. 10.8 fl (6.2-12.0); Monocyte# 1.19 X10^3/uL; Monocyte% 9.7 % (0-10); Neutrophil # 8.73 X10^3/uL (2.7-7.7); Neutrophil % 71.3 % (47-70); POSITIVE COUNT NO; POSITIVE DIFFERENTIAL NO; POSITIVE MORPHOLOGY NO; Platelet Count 379 K/mm3 (150-450); RBC Distribution Width CV 15.1 % (11.6-14.6); RBC Distribution Width SD 51.1 fl (35.1-43.9); Red Blood Count 5.28 M/mm3 (4.2-5.4); White Blood Count 12.2 K/mm3 (4.4-11.0)
--- NOTE | 2019-03-30 09:42 | ED.DCSUM_ITS ---
- ER Visit Summary Date of Service: 03/30/19 Chief Complaint: [Shortness of breath] History of Present Illness: The patient is a 48 F [presents the emergency department complaint of shortness of breath has been going on for several weeks. Patient was admitted a week ago for respiratory failure. Patient has history of COPD and asthma. Patient has history of diabetes and hypertension. 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 Patient currently on anywhere from 3 to 6 L of home O2. She does complain of an occasional cough that is mostly nonproductive currently. She denies any fevers although she is had some chills. Patient generally feels weak and she is had some increased confusion. Patient denies recent travel or surgery. Patient currently not on steroids and states that while in the hospital during her last stay she was given large amount of steroids that made her go crazy.] Physical Examination: [HEENT-PERRLA, EOMI. Cranial nerves II through XII grossly intact. TMs clear. Mucous membranes moist. No adenopathy. Cardiovascular-regular rate and rhythm without murmur or ectopy Lungs-diminished breath sounds bilaterally with faint expiratory wheezes noted bilaterally. Mild tachypnea. No accessory muscle use or retractions noted. Abdomen-normoactive bowel sounds, soft, nontender, no rebound or rigidity, no peritoneal signs. Extremities-intact ?4, normal range of motion, normal pulses, atraumatic] Test Results: [EKG obtained showed sinus rhythm with a ventricular rate of 97 bpm with no acute I segment changes. CBC with her showing a 12.2, hemoglobin 15, hematocrit 49, placed 379. Chemistries unremarkable. Troponin is 0.056. Lactate was 0.9. Chest x-ray showed increased markings in the right lower lobe cannot rule out early infiltrate. ABG obtained showed a pH of 7.225, CO2 95, PaO2 of 85, bicarb 39 and patient was satting 93% on 6 L.] Emergency Department Course and Treatment: [Patient was started on CPAP and repeat ABG was ordered which is pending. Case was discussed with hospitalist will evaluate patient for admission. Patient was started on Zosyn 4.5 g IV. Patient was given DuoNeb aerosol as well as albuterol aerosols and started on Solu-Medrol.] Treatment Plan: [Admit for further treatment.] Disposition: [Admit] Impression: [Respiratory failure's Hypercarbia COPD exacerbation Pneumonia] This note was generated with [employer] dictation software. It may contain incorrect words, spelling, and punctuation that were not noted in review of the chart prior to signing ED Disposition - Plan for ED Patient: Disposition: Home or Assisted Living Referrals: Rita Melton MD [Primary Care Provider] -
[2019-03-30 09:56] LABS: Lactic Acid 0.9 mmol/L (0.4-2.0)
[2019-03-30 09:56] LABS: Allen Test POS; Base Excess 12 mmol/L (-2 to +2); Bicarbonate 39.2 mmol/L (22-26); Blood Gas Specimen Type ART; O2 Delivery Device Nasal Can; PO2 85 mmHG (75-100); SITE R Radial; SO2 93 % (95-99); Time Given 939; Total Carbon Dioxide 42 mmol/L; pCO2 94.9 mmHg (35-45); pH 7.23 (7.35-7.45)
[2019-03-30] MEDS: Albuterol 2.5 MG/3 ML VIAL.NEB. INHALATION ×2 (10:15→10:25)
--- NOTE | 2019-03-30 10:16 | CPS ---
CRITICAL ABG VALUES HANDED TO DR. SEQUEIRA AT 0967.
[2019-03-30 10:28] LABS: Anion Gap -3 (5-15); BUN 16 mg/dL (7-18); BUN/Creat Ratio 27.1 RATIO (10-20); Calcium,Total 8.9 mg/dL (8.5-10.1); Chloride 96 mmol/L (98-107); Creatinine, Serum 0.59 mg/dL (0.55-1.02); EST Glomerular Filtration Rate 116 mL/min (>60); Est Glom Filt Rate - Afr Amer 140 mL/min (>60); Estimated Creatinine Clearance 93.23 ml/min; Glucose 228 mg/dL (74-106); Potassium 4.9 mmol/L (3.5-5.1); Sodium Level 134 mmol/L (136-145)
--- NOTE | 2019-03-30 10:51 | HP.PCM_ITS ---
Problem List (1) Morbid obesity with BMI of 40.0-44.9, adult Status: Chronic (2) Acute respiratory failure with hypoxia Status: Acute (3) Hypertension Status: Chronic Qualifiers: Hypertension type: essential hypertension Qualified Code(s): I10 - Essential (primary) hypertension (4) Elevated troponin Status: Acute (5) Acute respiratory failure with hypoxia and hypercapnia Status: Acute (6) COPD exacerbation Status: Chronic (7) Tobacco abuse Status: Chronic (8) Hypersomnia Status: Chronic (9) History of tubal ligation Status: Resolved (10) History of section Status: Resolved (11) COPD with acute exacerbation Status: Acute (12) Hypertensive urgency Status: Ruled-out (13) Otitis media Status: Ruled-out (14) Benign essential hypertension Status: Chronic (15) Herniated thoracic disc without myelopathy Status: Chronic (16) Chronic back pain Status: Chronic (17) COPD Status: Chronic (18) Asthma Status: Chronic Qualifiers: Asthma severity: unspecified severity Asthma persistence: unspecified Asthma complication type: unspecified Qualified Code(s): J45.909 - Unspecified asthma, uncomplicated; J45.909 - Unspecified asthma, uncomplicated; J45.909 - Unspecified asthma, uncomplicated (19) GERD (gastroesophageal reflux disease) Status: Chronic (20) Obesity (BMI 30-39.9) Status: Chronic (21) Diabetes mellitus, type II Status: Chronic Qualifiers: Diabetes mellitus custodial insulin use: unspecified 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 Patient presented with shortness of breath. Per patient she initially felt well when discharged however she started coughing a couple of days prior to her readmission. She in addition did complain of wheezing. She had used her home treatment without much improvement. She also did complain of chills but denies any subjective fever. She subsequently presented to the emergency department where she was found to be in acute hypercapnic respiratory failure with PCO2 at 92. Patient was placed on nasal BiPAP and admitted to monitored bed for further management Past Medical History Past Medical History (Chronic Problems): Chronic Problems (Last Reviewed 11/13/17 @ 09:36 by Danni Bahena NP-C) Morbid obesity with BMI of 40.0-44.9, adult (Chronic) Hypertension (Chronic) COPD exacerbation (Chronic) Tobacco abuse (Chronic) Hypersomnia (Chronic) Benign essential hypertension (Chronic) Herniated thoracic disc without myelopathy (Chronic) Chronic back pain (Chronic) COPD (Chronic) Asthma (Chronic) GERD (gastroesophageal reflux disease) (Chronic) Obesity (BMI 30-39.9) (Chronic) Diabetes mellitus, type II (Chronic) Medical History: Medical History (Last Reviewed 03/30/19 @ 11:18 by Melquiades Cheng MD) COPD with acute exacerbation (Acute) J44.1 Hypertensive urgency (Ruled-out) I16.0 Otitis media (Ruled-out) H66.90 Benign essential hypertension (Chronic) I10 Herniated thoracic disc without myelopathy (Chronic) M51.24 Chronic back pain (Chronic) M54.9, G89.29 COPD (Chronic) Asthma (Chronic) J45.909 GERD (gastroesophageal reflux disease) (Chronic) K21.9 Obesity (BMI 30-39.9) (Chronic) E66.9 Diabetes mellitus, type II (Chronic) E11.9 Allergies aspirin Allergy (Verified 03/30/19 08:34) Anaphylaxis cyclobenzaprine HCl [From Flexeril] Allergy (Verified 03/30/19 08:34) Rash levofloxacin [From Levaquin] Allergy (Verified 03/30/19 08:34) Rash naproxen [From Naprosyn] Allergy (Verified 03/30/19 08:34) Anaphylaxis bupropion HCl [From Wellbutrin] Adverse Reaction (Verified 03/30/19 08:34) nightmares NIGHTMARES doxycycline Adverse Reaction (Verified 03/30/19 08:34) Diarrhea Home Medications: Ambulatory Orders Medication Instructions Recorded Amlodipine [Norvasc] 10 mg PO DAILY 08/13/15 Lisinopril [Zestril] 40 mg PO DAILY 02/11/16 Hydrochlorothiazide [Hctz] 25 mg PO DAILY 10/26/17 Oxygen, Home [Home Oxygen] 2 - 4 lpm NASAL PRN PRN 10/26/17 Albuterol IH (ProAir) [Proair Hfa] 2 puff INHALATION Q4H PRN PRN #1 10/29/17 inhaler epinephrine 1 mg/mL injection kit 1 mg IM Q10M PRN #1 ea 11/13/17 Ipratropium/Albuterol Sulfate 3 ml INHALATION 4X/DAY 03/10/18 [Duoneb] Omeprazole 1 tab PO BREAKFAST 06/09/18 Oxycodone [Oxyir] 5 mg PO Q4H PRN PRN 5 Days #14 06/10/18 tablet Albuterol Aerosols [Ventolin 2.5 mg INHALATION Q4H PRN PRN 03/13/19 Aerosols] Albuterol Sulfate [Ventolin Hfa] 90 mcg INHALATION Q4H PRN 03/13/19 Budesonide/Formoterol 160/4.5 2 puff INHALATION BID #1 inhaler 03/18/19 [Symbicort 160/4.5 Mcg Inhaler (SP)] Guaifenesin [Mucinex] 1,200 mg PO BID #14 tab 03/18/19 Insulin Glargine,Hum.rec.anlog 35 unit SQ DAILY #2 insuln.pen 03/18/19 [Basaglar Kwikpen U-100] Surgical History: Surgical History (Last Reviewed 03/30/19 @ 11:19 by Melquiades Cheng MD) History of tubal ligation (Resolved) Z98.51 History of section (Resolved) Z98.891 Surgical History: noncontributory, - - x 2, BLTL, chest tube 3 y/o for spontaneous pneumothorax. 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 GATHERING EDITOR history Smoking Status: Former smoker - *Family History Sibling Family History: Family History (Last Reviewed 03/30/19 @ 11:19 by Melquiades Cheng MD) Mother Breast cancer Cancer Father COPD (chronic obstructive pulmonary disease) Hypertension Heart disease Cancer History Items: Pulmonary Disease - age 34 secondary to pulmonary hypertension Maternal Family History: Family History (Last Reviewed 03/30/19 @ 11:19 by Melquiades Cheng MD) Mother Breast cancer Cancer Father COPD (chronic obstructive pulmonary disease) Hypertension Heart disease Cancer History Items: Cancer - alive age 63, breast and skin Paternal Family History: Family History (Last Reviewed 03/30/19 @ 11:19 by Melquiades Cheng MD) Mother Breast cancer Cancer Father COPD (chronic obstructive pulmonary disease) Hypertension Heart disease Cancer History Items: Cancer - Skin cancer, COPD - alive age 65, Heart Disease, Hypertension, No pertinent history Review of Systems Constitutional: Reports: Chills. Denies: Anorexia, Fever, Night Sweats, Weight Change HEENT: Denies: Head Aches, Sinus Congestion, Sinus Drainage Cardiovascular: Denies: Chest Pain, Orthopnea, Palpitations, Paroxysmal Noc. Dyspnea Respiratory: Reports: Cough, Shortness of Breath, Shortness of breath upon exertion, Sputum production Gastrointestinal: Denies: Abdominal Pain, Hematemesis, Hematochezia, Nausea, Melena Genitourinary: Denies: Dysuria, Frequency, Hematuria Musculoskeletal: Denies: Joint Pain, Joint Tenderness Skin: Denies: Rash Neurological: Denies: Focal weakness, Numbness, Tingling Psychiatric: Denies: Homicidal Ideations, Suicidal Ideations Hematologic/ Lymphatic: Denies: Easy Bruising, Easy Bleeding VTE Information - Inpt Only VTE Present on Admission: No VTE Mechan Device Prophylaxis: Knee High MARU Hose VTE Pharm Prophylaxis ordered?: Yes Objective: GENERAL: Dyspneic at rest on CPAP HEENT: Atraumatic; moist oral mucosa EYES; Anicteric, Normal Conjunctiva NECK; supple, normal thyroid, RESPIRATORY: Diminished to auscultation bilaterally, CARDIOVASCULAR: Regular S1 S2 GI: soft, non-tender, normoactive bowel sounds, : No Renal angle tenderness; EXTREMITIES: No edema, no clubbing, MUSCULOSKELETAL: No Joint Tenderness; NEURO: Awake; no lateralizing signs. SKIN: No Rash PSYCH; Normal affect - Physical Exam Vital Signs Temp Pulse Resp BP Pulse Ox 98.8 F 90 19 H 180/95 H 94 03/30/19 10:00 03/30/19 10:43 03/30/19 10:43 03/30/19 10:43 03/30/19 10:43 Oxygen Flow Rate (L/min) 5 Oxygen Delivery Method Bi-pap Weight: 104.326 kg Body Mass Index (BMI) 42.0 Laboratory Tests Past 24 Hrs 03/30/19 03/30/19 03/30/19 09:03 09:03 09:03 WBC 12.2 H RBC 5.28 Hgb 15.1 H Hct 49.1 H MCV 93.0 MCH 28.6 MCHC 30.8 L RDW 15.1 H RDW Differential 51.1 H Plt Count 379 MPV 10.8 Immature Gran % (Auto) 0.200 Neut % (Auto) 71.3 H Lymph % (Auto) 17.7 L [place] % (Auto) 9.7 Eos % (Auto) 0.7 Baso % (Auto) 0.4 Absolute Neuts (auto) 8.7 H Absolute Lymphs (auto) 2.16 Total Counted Not Reportable Specimen Type Sample Site pH Bicarbonate Actual POC Total CO2 Base Excess O2 Saturation ABG pCO2 ABG pO2 Baudilio Test O2 Delivery Device Liter Flow Blood Gas Notified Whom Blood Gas Notified Time Sodium Cancelled Potassium Cancelled Chloride Cancelled Carbon Dioxide Cancelled Anion Gap Cancelled BUN Cancelled Creatinine Cancelled Estim Creat Clear Calc Cancelled Est GFR (MDRD) Af Amer Cancelled Est GFR (MDRD) Non-Af Cancelled BUN/Creatinine Ratio Cancelled Glucose Cancelled Lactic Acid 0.9 Calcium Cancelled Troponin I Cancelled 03/30/19 03/30/19 09:46 10:05 WBC RBC Hgb Hct MCV MCH MCHC RDW RDW Differential Plt Count MPV Immature Gran % (Auto) Neut % (Auto) Lymph % (Auto) [place] % (Auto) Eos % (Auto) Baso % (Auto) Absolute Neuts (auto) Absolute Lymphs (auto) Total Counted Specimen Type ART Sample Site R Radial pH 7.23 L Bicarbonate Actual 39.2 H POC Total CO2 42 Base Excess 12 H O2 Saturation 93 L ABG pCO2 94.9 H* ABG pO2 85 Baudilio Test POS O2 Delivery Device Nasal Can Liter Flow 6.0 Blood Gas Notified Whom ED MD Blood Gas Notified Time 939 Sodium 134 L Potassium 4.9 Chloride 96 L Carbon Dioxide 41.0 H Anion Gap -3 L BUN 16 Creatinine 0.59 Estim Creat Clear Calc 93.23 Est GFR (MDRD) Af Amer 140 Est GFR (MDRD) Non-Af 116 BUN/Creatinine Ratio 27.1 H Glucose 228 H Lactic Acid Calcium 8.9 Troponin I 0.056 H Assessment/Plan All Active Problems (Last Reviewed 11/13/17 @ 09:36 by Danni Bahena, CHIQUIS-C) Acute respiratory failure with hypoxia (Acute) Elevated troponin (Acute) Acute respiratory failure with hypoxia and hypercapnia (Acute) History of tubal ligation (Resolved) History of section (Resolved) COPD with acute exacerbation (Acute) Hypertensive urgency (Ruled-out) Otitis media (Ruled-out) Tobacco abuse (Resolved) Patient is a 48-year-old lady with history of advanced COPD and asthma discharged from the hospital a week prior to her readmission presented with progressive shortness of breath 1. Acute hypercapnic and hypoxic respiratory failure secondary to COPD with acute exacerbation patient has been admitted to monitored bed for management of patient underlying etiology. Patient in addition was placed on noninvasive ventilation nasal CPAP with consultation placed to pulmonary medicine. In view of patient recurrent admissions ordered high-resolution CT for subsequent evaluation 2. COPD with acute exacerbation patient placed on supplemental oxygen aerosol treatment as well as antibiotics with Zithromax with consultation placed to pulmonary medicine 3. Chronically elevated troponin 4. Chronic hypoxic respiratory failure on home oxygen 5. Essential hypertension-blood pressure controlled, home medications continued with dose adjustment as needed 6. Chronic back pain 7. Morbid obesity with BMI of 42: Weight loss advised 8. DVT prophylaxis Lovenox Code Visit Inpatient E&M: 53253 Init Hosp L3
--- NOTE | 2019-03-30 10:52 | CASEMGMT ---
RN CM Assessment Introduced role of RN CM to patient.? Patient is currently on Nasal Bipap and able?to participate in RN CM Assessment. ?Care providers, pharmacy, and demographics verified. Presentation: SOB past several weeks, H/o COPD, Asthma, Former Smoker. On Home O2 Continuously, +Re-Admit. Admit Dx: Respiratory Failure Re-Admit: Yes, 03/12-03/18/19 for Acute Resp Failure, COPD Exacerbation Barriers/Issues: Has a 22yo son Fan Self lives near patient and a 13yo son who lives in [facility]. Both Son's do not live with patient. Patient has no HPOA/LW. PCP: Rita Melton Specialists: None. Patient has an appointment set for tomorrow to see the RN NURSERY in pulmonology (1st time seeing Specialist) and then thinks will be directed under Dr Myers. Preferred Pharmacy: [facility] Insurance: [facility] Rx Benefit: Yes? LNOK: Son Fan Self LW/HPOA: None, Would like information Living Arrangements:? Lives with her boyfriend Adrian in a SS home, 2 steps to enter ADL?s: Independent with ambulation and ADL's. Boyfriend Adrian has been assisting patient with ADL's since last hospital DC. Transportation: Patient drives, [employer]frienvandana Campbell to transport on DC- his cell # [phone]. Adrian has been driving since last hospital DC. DME: Nebulizer, Home O2 Continuous [id number], Glucometer HHC: Past with [facility] SNF: None Goal: Home and does not feel will need anything, denies questions/concerns at this time. DC PLAN: Home, No anticipated needs identified at this time. SHAI Amyaa
--- NOTE | 2019-03-30 11:19 | PCM.CONS.PUL ---
Reason for Consult Date of Consultation: 03/30/19 Reason for Consultation: Respiratory failure/COPD exacerbation History of Present Illness: The patient is a 48-year-old female, with a history as outlined below, who presented to the emergency department on March 30 with complaints of shortness of breath. The patient was just recently discharged from the hospital after having been admitted March 12, during which time, she was treated for acute hypoxemic respiratory failure due to presumptive community-acquired pneumonia. The patient has been evaluated in the pulmonary medicine clinic on one occasion in October 2017, at which time, she reported having been diagnosed with COPD and asthma previously. There was also concern for underlying sleep disordered breathing. Orders were placed at that time for pulmonary function studies along with a sleep study. However, the patient never followed up. The patient reports that she has been experiencing worsening shortness of breath, despite compliance with the use of Symbicort and DuoNeb's. She does admit that she is utilizing her rescue inhaler on a frequent basis. She does report a cough which has been intermittently productive of sputum. She reports that she has not had a cigarette for 4 days now. On presentation to the emergency department, the patient was noted to be afebrile, hypertensive and hypoxemic. Laboratory evaluation revealed a mildly elevated white blood cell count to 12,000. Arterial blood gas obtained on 6 L/min revealed a pH of 7.23 with a corresponding PCO2 of 95 and PO2 of 85. Chemistry profile revealed a elevated serum bicarbonate of 41. Troponin was increased to 0.056. Plain film chest x-ray revealed no acute infiltrative process. The patient was given aerosol treatments, IV Solu-Medrol and antibiotics. She was placed on BiPAP therapy. She was subsequently admitted to the progressive care unit for ongoing management. Previous surface echocardiogram revealed moderate to severe concentric LVH with an ejection fraction of 65% and evidence of diastolic dysfunction. Right ventricular systolic pressure was estimated to be 45 mmHg. Past Medical History Past Medical History (Chronic Problems): Chronic Problems (Last Reviewed 03/30/19 @ 11:18 by Melquiades Cheng MD) Morbid obesity with BMI of 40.0-44.9, adult (Chronic) Hypertension (Chronic) COPD exacerbation (Chronic) Tobacco abuse (Chronic) Hypersomnia (Chronic) Benign essential hypertension (Chronic) Herniated thoracic disc without myelopathy (Chronic) Chronic back pain (Chronic) COPD (Chronic) Asthma (Chronic) GERD (gastroesophageal reflux disease) (Chronic) Obesity (BMI 30-39.9) (Chronic) Diabetes mellitus, type II (Chronic) Medical History: Medical History (Last Reviewed 03/30/19 @ 11:18 by Melquiades Cheng MD) COPD with acute exacerbation (Acute) J44.1 Hypertensive urgency (Ruled-out) I16.0 Otitis media (Ruled-out) H66.90 Benign essential hypertension (Chronic) I10 Herniated thoracic disc without myelopathy (Chronic) M51.24 Chronic back pain (Chronic) M54.9, G89.29 COPD (Chronic) Asthma (Chronic) J45.909 GERD (gastroesophageal reflux disease) (Chronic) K21.9 Obesity (BMI 30-39.9) (Chronic) E66.9 Diabetes mellitus, type II (Chronic) E11.9 Allergies aspirin Allergy (Verified 03/30/19 08:34) Anaphylaxis cyclobenzaprine HCl [From Flexeril] Allergy (Verified 03/30/19 08:34) Rash levofloxacin [From Levaquin] Allergy (Verified 03/30/19 08:34) Rash naproxen [From Naprosyn] Allergy (Verified 03/30/19 08:34) Anaphylaxis bupropion HCl [From Wellbutrin] Adverse Reaction (Verified 03/30/19 08:34) nightmares NIGHTMARES doxycycline Adverse Reaction (Verified 03/30/19 08:34) Diarrhea Home Medications: Ambulatory Orders Medication Instructions Recorded Amlodipine [Norvasc] 10 mg PO DAILY 08/13/15 Lisinopril [Zestril] 40 mg PO DAILY 02/11/16 Hydrochlorothiazide [Hctz] 25 mg PO DAILY 10/26/17 Oxygen, Home [Home Oxygen] 2 - 4 lpm NASAL PRN PRN 10/26/17 Albuterol IH (ProAir) [Proair Hfa] 2 puff INHALATION Q4H PRN PRN #1 10/29/17 inhaler epinephrine 1 mg/mL injection kit 1 mg IM Q10M PRN #1 ea 11/13/17 Ipratropium/Albuterol Sulfate 3 ml INHALATION 4X/DAY 03/10/18 [Duoneb] Omeprazole 1 tab PO BREAKFAST 06/09/18 Oxycodone [Oxyir] 5 mg PO Q4H PRN PRN 5 Days #14 06/10/18 tablet Albuterol Aerosols [Ventolin 2.5 mg INHALATION Q4H PRN PRN 03/13/19 Aerosols] Albuterol Sulfate [Ventolin Hfa] 90 mcg INHALATION Q4H PRN 03/13/19 Budesonide/Formoterol 160/4.5 2 puff INHALATION BID #1 inhaler 03/18/19 [Symbicort 160/4.5 Mcg Inhaler (SP)] Guaifenesin [Mucinex] 1,200 mg PO BID 03/30/19 Insulin Glargine,Hum.rec.anlog 35 unit SQ DAILY 03/30/19 [Basagljohn Viverospen U-100] Surgical History: Surgical History (Last Reviewed 03/30/19 @ 11:19 by Melquiades Cheng MD) History of tubal ligation (Resolved) Z98.51 History of section (Resolved) Z98.891 Surgical History: noncontributory, - - x 2, BLTL, chest tube 3 y/o for spontaneous pneumothorax. 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 Smoking Status: Former smoker - *Family History Sibling Family History: Family History (Last Reviewed 03/30/19 @ 11:19 by Melquiades Cheng MD) Mother Breast cancer Cancer Father COPD (chronic obstructive pulmonary disease) Hypertension Heart disease Cancer History Items: Pulmonary Disease - age 34 secondary to pulmonary hypertension Maternal Family History: Family History (Last Reviewed 03/30/19 @ 11:19 by Melquiades Cheng MD) Mother Breast cancer Cancer Father COPD (chronic obstructive pulmonary disease) Hypertension Heart disease Cancer History Items: Cancer - alive age 63, breast and skin Paternal Family History: Family History (Last Reviewed 03/30/19 @ 11:19 by Melquiades Cheng MD) Mother Breast cancer Cancer Father COPD (chronic obstructive pulmonary disease) Hypertension Heart disease Cancer History Items: Cancer - Skin cancer, COPD - alive age 65, Heart Disease, Hypertension, No pertinent history Review of Systems Constitutional: Reports: Malaise, Fatigue HEENT: Denies: Head Aches, Sinus Congestion, Sinus Drainage Cardiovascular: Reports: Chest Pain, Chest Pressure Respiratory: Reports: Cough, Shortness of Breath, Sputum production. Denies: Wheezing Gastrointestinal: Denies: Abdominal Pain, Nausea, Vomiting Genitourinary: Denies: Dysuria Musculoskeletal: Denies: Joint Pain, Joint Tenderness Skin: Denies: Rash, Wounds Neurological: Denies: Numbness, Tingling, Focal weakness Psychiatric: Denies: Anxiety, Depression, Homicidal Ideations, Suicidal Ideations Hematologic/ Lymphatic: Denies: Easy Bruising, Easy Bleeding Objective: The patient's most recent lab work, culture data and imaging studies have all been personally reviewed. - Physical Exam General: Alert, Cooperative, No apparent distress, - - Currently resting comfortably on nasal cannula supplemental oxygen HEENT: Atraumatic, PERRLA, Normocephalic Oral: No Gingival or Mucosal Lesions/ Ulcerations Neck: Supple, No Nodes, Trachea Midline Lungs: No rhonchi, No rales, Diminished, Wheezes Cardiovascular: Regular rate, Regular Rhythm, Normal S1, Normal S2, No murmurs Abdomen: Bowel Sounds Present, Soft, Non Tender, Obese Extremities: No clubbing, No cyanosis, No edema Skin: No breakdown Musculoskeletal: No Tenderness to Palpation of Joints or Extremities Lymphatic: No Cervical, Supraclavicular, or Inguinal Adenopathy Neurological: Cranial nerves II-XII grossly intact, Neuro grossly intact Psych/Mental Status: Normal Affect, Appropriate Vital Signs Temp Pulse Resp BP Pulse Ox 98.8 F 90 19 H 180/95 H 94 03/30/19 10:00 03/30/19 10:43 03/30/19 10:43 03/30/19 10:43 03/30/19 10:43 Oxygen Flow Rate (L/min) 5 Oxygen Delivery Method Bi-pap Weight: 230 lb Body Mass Index (BMI) 42.0 Laboratory Tests Past 24 Hrs 03/30/19 03/30/19 03/30/19 09:03 09:03 09:03 WBC 12.2 H RBC 5.28 Hgb 15.1 H Hct 49.1 H MCV 93.0 MCH 28.6 MCHC 30.8 L RDW 15.1 H RDW Differential 51.1 H Plt Count 379 MPV 10.8 Immature Gran % (Auto) 0.200 Neut % (Auto) 71.3 H Lymph % (Auto) 17.7 L [place] % (Auto) 9.7 Eos % (Auto) 0.7 Baso % (Auto) 0.4 Absolute Neuts (auto) 8.7 H Absolute Lymphs (auto) 2.16 Total Counted Not Reportable Specimen Type Sample Site pH Bicarbonate Actual POC Total CO2 Base Excess O2 Saturation ABG pCO2 ABG pO2 Baudilio Test O2 Delivery Device Liter Flow Blood Gas Notified Whom Blood Gas Notified Time Sodium Cancelled Potassium Cancelled Chloride Cancelled Carbon Dioxide Cancelled Anion Gap Cancelled BUN Cancelled Creatinine Cancelled Estim Creat Clear Calc Cancelled Est GFR (MDRD) Af Amer Cancelled Est GFR (MDRD) Non-Af Cancelled BUN/Creatinine Ratio Cancelled Glucose Cancelled Lactic Acid 0.9 Calcium Cancelled Troponin I Cancelled 03/30/19 03/30/19 09:46 10:05 WBC RBC Hgb Hct MCV MCH MCHC RDW RDW Differential Plt Count MPV Immature Gran % (Auto) Neut % (Auto) Lymph % (Auto) [place] % (Auto) Eos % (Auto) Baso % (Auto) Absolute Neuts (auto) Absolute Lymphs (auto) Total Counted Specimen Type ART Sample Site R Radial pH 7.23 L Bicarbonate Actual 39.2 H POC Total CO2 42 Base Excess 12 H O2 Saturation 93 L ABG pCO2 94.9 H* ABG pO2 85 Baudilio Test POS O2 Delivery Device Nasal Can Liter Flow 6.0 Blood Gas Notified Whom ED MD Blood Gas Notified Time 939 Sodium 134 L Potassium 4.9 Chloride 96 L Carbon Dioxide 41.0 H Anion Gap -3 L BUN 16 Creatinine 0.59 Estim Creat Clear Calc 93.23 Est GFR (MDRD) Af Amer 140 Est GFR (MDRD) Non-Af 116 BUN/Creatinine Ratio 27.1 H Glucose 228 H Lactic Acid Calcium 8.9 Troponin I 0.056 H Clinical Impression(s) from Imaging Studies Chest X-Ray 03/30/19 08:55 IMPRESSION: Mild degree of increased markings at the right lung base suggestive of atelectasis and/or early infiltrate. Follow-up is recommended. Electronically Signed: Luis Mistry, at 9:10 EDT , Service support , Assessment/Plan All Active Problems (Last Reviewed 03/30/19 @ 11:18 by Melquiades Cheng MD) Acute respiratory failure with hypoxia (Acute) Elevated troponin (Acute) Acute respiratory failure with hypoxia and hypercapnia (Acute) History of tubal ligation (Resolved) History of section (Resolved) COPD with acute exacerbation (Acute) Hypertensive urgency (Ruled-out) Otitis media (Ruled-out) Tobacco abuse (Resolved) RECOMMENDATIONS: 1. Discontinue IV steroids, given history of significant steroid-induced behavioral changes. 2. Start scheduled budesonide twice daily. 3. Continue bronchodilators. 4. Check respiratory viral panel. 5. Continue empiric antibiotics, pending infectious work-up. 6. Wean supplemental oxygen as tolerated. 7. Start empiric BiPAP therapy with naps and nightly. IMPRESSIONS: 1. Acute on chronic combined respiratory failure The patient reports that she has a baseline 4 L/min supplemental oxygen requirement and is a chronic CO2 retainer. The patient has a reported history of both COPD and asthma. Although she was seen initially in the pulmonary medicine clinic, the patient never followed up, nor completed any of her testing. She does have an extensive smoking history and continues to smoke, as recently as 4 days ago. While it is reasonable to continue treatment for an exacerbation, while the patient was previously admitted to the hospital she did experience significant steroid-induced behavioral changes. Therefore, I would recommend avoiding IV steroids and instead utilize scheduled budesonide. The patient's initial plain film chest x-ray was largely unrevealing for the presence of an acute infiltrate. However, antibiotics will be continued pending infectious work-up. Wean supplemental oxygen as tolerated. Encourage incentive spirometer use. 2. Heart failure with preserved ejection fraction/pulmonary hypertension/troponin elevation Troponin elevation likely secondary to hypoxemia. Plan to trend troponins accordingly. 3. Clinical concern for underlying sleep disordered breathing Recommend empiric use of BiPAP therapy while sleeping. The patient needs to follow-up with the pulmonary medicine clinic so that a diagnostic polysomnogram can be completed. 4. Continuous tobacco dependency/diabetes mellitus/morbid obesity/history of medical noncompliance/chronic pain syndrome Complicates care, management, recovery and prognosis. Continue home antihypertensive regimen. Nicotine replacement therapy can be offered to the patient while she is admitted to the hospital. This note was generated with [employer] software. It may contain incorrect words, spelling, and punctuation that were not noted in checking the note before signing. Code Visit Inpatient E&M: 30329 In Hosp L3
--- NOTE | 2019-03-30 11:24 | CON.PCM_ITS ---
Reason for Consult Date of Consultation: 03/30/19 Reason for Consultation: Respiratory failure/COPD exacerbation History of Present Illness: The patient is a 48-year-old female, with a history as outlined below, who presented to the emergency department on March 30 with complaints of shortness of b reath. The patient was just recently discharged from the hospital after having been admitted March 12, during which time, she was treated for acute hypoxemic respiratory failure due to presumptive community-acquired pneumonia. The patient has been evaluated in the pulmonary medicine clinic on one occasion in October 2017, at which time, she reported having been diagnosed with COPD and asthma previously. There was also concern for underlying sleep disordered breathing. Orders were placed at that time for pulmonary function studies along with a sleep study. However, the patient never followed up. The patient reports that she has been experiencing worsening shortness of breath, despite compliance with the use of Symbicort and DuoNeb's. She does admit that she is utilizing her rescue inhaler on a frequent basis. She does report a cough which has been intermittently productive of sputum. She reports that she has not had a cigarette for 4 days now. On presentation to the emergency department, the patient was noted to be afebrile, hypertensive and hypoxemic. Laboratory evaluation revealed a mildly elevated white blood cell count to 12,000. Arterial blood gas obtained on 6 L /min revealed a pH of 7.23 with a corresponding PCO2 of 95 and PO2 of 85. Chemistry profile revealed a elevated serum bicarbonate of 41. Troponin was increased to 0.056. Plain film chest x-ray revealed no acute infiltrative process. The patient was given aerosol treatments, IV Solu-Medrol and antibiotics. She was placed on BiPAP therapy. She was subsequently admitted to the progressive care unit for ongoing management. Previous surface echocardiogram revealed moderate to severe concentric LVH with an ejection fraction of 65% and evidence of diastolic dysfunction. Right ventricular systolic pressure was estimated to be 45 mmHg. Past Medical History Past Medical History (Chronic Problems): Chronic Problems (Last Reviewed 03/30/19 @ 11:18 by Melquiades Cheng MD) Morbid obesity with BMI of 40.0-44.9, adult (Chronic) Hypertension (Chronic) COPD exacerbation (Chronic) Tobacco abuse (Chronic) Hypersomnia (Chronic) Benign essential hypertension (Chronic) Herniated thoracic disc without myelopathy (Chronic) Chronic back pain (Chronic) COPD (Chronic) Asthma (Chronic) GERD (gastroesophageal reflux disease) (Chronic) Obesity (BMI 30-39.9) (Chronic) Diabetes mellitus, type II (Chronic) Medical History: Medical History (Last Reviewed 03/30/19 @ 11:18 by Melquiades Cheng MD) COPD with acute exacerbation (Acute) J44.1 Hypertensive urgency (Ruled-out) I16.0 Otitis media (Ruled-out) H66.90 Benign essential hypertension (Chronic) I10 Herniated thoracic disc without myelopathy (Chronic) M51.24 Chronic back pain (Chronic) M54.9, G89.29 COPD (Chronic) Asthma (Chronic) J45.909 GERD (gastroesophageal reflux disease) (Chronic) K21.9 Obesity (BMI 30-39.9) (Chronic) E66.9 Diabetes mellitus, type II (Chronic) E11.9 Allergies aspirin Allergy (Verified 03/30/19 08:34) Anaphylaxis cyclobenzaprine HCl [From Flexeril] Allergy (Verified 03/30/19 08:34) Rash levofloxacin [From Levaquin] Allergy (Verified 03/30/19 08:34) Rash naproxen [From Naprosyn] Allergy (Verified 03/30/19 08:34) Anaphylaxis bupropion HCl [From Wellbutrin] Adverse Reaction (Verified 03/30/19 08:34) nightmares NIGHTMARES doxycycline Adverse Reaction (Verified 03/30/19 08:34) Diarrhea Home Medications: Ambulatory Orders Medication Instructions Recorded Amlodipine [Norvasc] 10 mg PO DAILY 08/13/15 Lisinopril [Zestril] 40 mg PO DAILY 02/11/16 Hydrochlorothiazide [Hctz] 25 mg PO DAILY 10/26/17 Oxygen, Home [Home Oxygen] 2 - 4 lpm NASAL PRN PRN 10/26/17 Albuterol IH (ProAir) [Proair Hfa] 2 puff INHALATION Q4H PRN PRN #1 10/29/17 inhaler epinephrine 1 mg/mL injection kit 1 mg IM Q10M PRN #1 ea 11/13/17 Ipratropium/Albuterol Sulfate 3 ml INHALATION 4X/DAY 03/10/18 [Duoneb] Omeprazole 1 tab PO BREAKFAST 06/09/18 Oxycodone [Oxyir] 5 mg PO Q4H PRN PRN 5 Days #14 07/18/18 tablet Albuterol Aerosols [Ventolin 2.5 mg INHALATION Q4H PRN PRN 03/13/19 Aerosols] Albuterol Sulfate [Ventolin Hfa] 90 mcg INHALATION Q4H PRN 03/13/19 Budesonide/Formoterol 160/4.5 2 puff INHALATION BID #1 inhaler 03/18/19 [Symbicort 160/4.5 Mcg Inhaler (SP)] Guaifenesin [Mucinex] 1,200 mg PO BID 03/30/19 Insulin Glargine,Hum.rec.anlog 35 unit SQ DAILY 03/30/19 [Natalieagljohn Viverospen U-100] Surgical History: Surgical History (Last Reviewed 03/30/19 @ 11:19 by Melquiades Cheng MD) History of tubal ligation (Resolved) Z98.51 History of section (Resolved) Z98.891 Surgical History: noncontributory, - - x 2, BLTL, chest tube 3 y/o for spontaneous pneumothorax. Psychiatric History: No pertinent psych hx OVERCASTER History: No pertinent OVERCASTER history Smoking Status: Former smoker - *Family History Sibling Family History: Family History (Last Reviewed 03/30/19 @ 11:19 by Melquiades Cheng MD) Mother Breast cancer Cancer Father COPD (chronic obstructive pulmonary disease) Hypertension Heart disease Cancer History Items: Pulmonary Disease - age 34 secondary to pulmonary hypertension Maternal Family History: Family History (Last Reviewed 03/30/19 @ 11:19 by Melquiades Cheng MD) Mother Breast cancer Cancer Father COPD (chronic obstructive pulmonary disease) Hypertension Heart disease Cancer History Items: Cancer - alive age 63, breast and skin Paternal Family History: Family History (Last Reviewed 03/30/19 @ 11:19 by Melquiades Cheng MD) Mother Breast cancer Cancer Father COPD (chronic obstructive pulmonary disease) Hypertension Heart disease Cancer History Items: Cancer - Skin cancer, COPD - alive age 65, Heart Disease, Hypertension, No pertinent history Review of Systems Constitutional: Reports: Malaise, Fatigue HEENT: Denies: Head Aches, Sinus Congestion, Sinus Drainage Cardiovascular: Reports: Chest Pain, Chest Pressure Respiratory: Reports: Cough, Shortness of Breath, Sputum production. Denies: Wheezing Gastrointestinal: Denies: Abdominal Pain, Nausea, Vomiting Genitourinary: Denies: Dysuria Musculoskeletal: Denies: Joint Pain, Joint Tenderness Skin: Denies: Rash, Wounds Neurological: Denies: Numbness, Tingling, Focal weakness Psychiatric: Denies: Anxiety, Depression, Homicidal Ideations, Suicidal Ideations Hematologic/ Lymphatic: Denies: Easy Bruising, Easy Bleeding Objective: The patient's most recent lab work, culture data and imaging studies have all been personally reviewed. - Physical Exam General: Alert, Cooperative, No apparent distress, - - Currently resting comfortably on nasal cannula supplemental oxygen HEENT: Atraumatic, PERRLA, Normocephalic Oral: No Gingival or Mucosal Lesions/ Ulcerations Neck: Supple, No Nodes, Trachea Midline Lungs: No rhonchi, No rales, Diminished, Wheezes Cardiovascular: Regular rate, Regular Rhythm, Normal S1, Normal S2, No murmurs Abdomen: Bowel Sounds Present, Soft, Non Tender, Obese Extremities: No clubbing, No cyanosis, No edema Skin: No breakdown Musculoskeletal: No Tenderness to Palpation of Joints or Extremities Lymphatic: No Cervical, Supraclavicular, or Inguinal Adenopathy Neurological: Cranial nerves II-XII grossly intact, Neuro grossly intact Psych/Mental Status: Normal Affect, Appropriate Vital Signs Temp Pulse Resp BP Pulse Ox 98.8 F 90 19 H 180/95 H 94 03/30/19 10:00 03/30/19 10:43 03/30/19 10:43 03/30/19 10:43 03/30/19 10:43 Oxygen Flow Rate (L/min) 5 Oxygen Delivery Method Bi-pap Weight: 230 lb Body Mass Index (BMI) 42.0 Laboratory Tests Past 24 Hrs 03/30/19 03/30/19 03/30/19 09:03 09:03 09:03 WBC 12.2 H RBC 5.28 Hgb 15.1 H Hct 49.1 H MCV 93.0 MCH 28.6 MCHC 30.8 L RDW 15.1 H RDW Differential 51.1 H Plt Count 379 MPV 10.8 Immature Gran % (Auto) 0.200 Neut % (Auto) 71.3 H Lymph % (Auto) 17.7 L [place] % (Auto) 9.7 Eos % (Auto) 0.7 Baso % (Auto) 0.4 Absolute Neuts (auto) 8.7 H Absolute Lymphs (auto) 2.16 Total Counted Not Reportable Specimen Type Sample Site pH Bicarbonate Actual POC Total CO2 Base Excess O2 Saturation ABG pCO2 ABG pO2 Baudilio Test O2 Delivery Device Liter Flow Blood Gas Notified Whom Blood Gas Notified Time Sodium Cancelled Potassium Cancelled Chloride Cancelled Carbon Dioxide Cancelled Anion Gap Cancelled BUN Cancelled Creatinine Cancelled Estim Creat Clear Calc Cancelled Est GFR (MDRD) Af Amer Cancelled Est GFR (MDRD) Non-Af Cancelled BUN/Creatinine Ratio Cancelled Glucose Cancelled Lactic Acid 0.9 Calcium Cancelled Troponin I Cancelled 03/30/19 03/30/19 09:46 10:05 WBC RBC Hgb Hct MCV MCH MCHC RDW RDW Differential Plt Count MPV Immature Gran % (Auto) Neut % (Auto) Lymph % (Auto) [place] % (Auto) Eos % (Auto) Baso % (Auto) Absolute Neuts (auto) Absolute Lymphs (auto) Total Counted Specimen Type ART Sample Site R Radial pH 7.23 L Bicarbonate Actual 39.2 H POC Total CO2 42 Base Excess 12 H O2 Saturation 93 L ABG pCO2 94.9 H* ABG pO2 85 Baudilio Test POS O2 Delivery Device Nasal Can Liter Flow 6.0 Blood Gas Notified Whom ED MD Blood Gas Notified Time 939 Sodium 134 L Potassium 4.9 Chloride 96 L Carbon Dioxide 41.0 H Anion Gap -3 L BUN 16 Creatinine 0.59 Estim Creat Clear Calc 93.23 Est GFR (MDRD) Af Amer 140 Est GFR (MDRD) Non-Af 116 BUN/Creatinine Ratio 27.1 H Glucose 228 H Lactic Acid Calcium 8.9 Troponin I 0.056 H Clinical Impression(s) from Imaging Studies Chest X-Ray 03/30/19 08:55 IMPRESSION: Mild degree of increased markings at the right lung base suggestive of atelectasis and/or early infiltrate. Follow-up is recommended. Electronically Signed: Luis Mistry, at 9:10 EDT , Service support , Assessment/Plan All Active Problems (Last Reviewed 03/30/19 @ 11:18 by Melquiades Cheng MD) Acute respiratory failure with hypoxia (Acute) Elevated troponin (Acute) Acute respiratory failure with hypoxia and hypercapnia (Acute) History of tubal ligation (Resolved) History of section (Resolved) COPD with acute exacerbation (Acute) Hypertensive urgency (Ruled-out) Otitis media (Ruled-out) Tobacco abuse (Resolved) RECOMMENDATIONS: 1. Discontinue IV steroids, given history of significant steroid-induced behavioral changes. 2. Start scheduled budesonide twice daily. 3. Continue bronchodilators. 4. Check respiratory viral panel. 5. Continue empiric antibiotics, pending infectious work-up. 6. Wean supplemental oxygen as tolerated. 7. Start empiric BiPAP therapy with naps and nightly. IMPRESSIONS: 1. Acute on chronic combined respiratory failure The patient reports that she has a baseline 4 L/min supplemental oxygen requirement and is a chronic CO2 retainer. The patient has a reported history of both COPD and asthma. Although she was seen initially in the pulmonary medicine clinic, the patient never followed up, nor completed any of her testing. She does have an extensive smoking history and continues to smoke, as recently as 4 days ago. While it is reasonable to continue treatment for an exacerbation, while the patient was previously admitted to the hospital she did experience significant steroid-induced behavioral changes. Therefore, I would recommend avoiding IV steroids and instead utilize scheduled budesonide. The patient's initial plain film chest x-ray was largely unrevealing for the presence of an acute infiltrate. However, antibiotics will be continued pending infectious work-up. Wean supplemental oxygen as tolerated. Encourage incentive spirometer use. 2. Heart failure with preserved ejection fraction/pulmonary hypertension/troponin elevation Troponin elevation likely secondary to hypoxemia. Plan to trend troponins accordingly. 3. Clinical concern for underlying sleep disordered breathing Recommend empiric use of BiPAP therapy while sleeping. The patient needs to fo llow-up with the pulmonary medicine clinic so that a diagnostic polysomnogram can be completed. 4. Continuous tobacco dependency/diabetes mellitus/morbid obesity/history of medical noncompliance/chronic pain syndrome Complicates care, management, recovery and prognosis. Continue home antihypertensive regimen. Nicotine replacement therapy can be offered to the patient while she is admitted to the hospital. This note was generated with [employer] software. It may contain incorrect words, spelling, and punctuation that were not noted in checking the note before signing. Code Visit Inpatient E&M: 22582 Init Hosp L3
--- NOTE | 2019-03-30 11:27 | CPS ---
Critical ABG values handed to Dr. Pierre at 1121 by [facility].
[2019-03-30 12:10] LABS: Allen Test POS; Base Excess 11 mmol/L (-2 to +2); Bicarbonate 38.5 mmol/L (22-26); Blood Gas Specimen Type ART; EPAP 6; FI02 40; IPAP 14; PO2 73 mmHG (75-100); RR 14; SITE R Radial; SO2 89 % (95-99); Time Given 1113; Total Carbon Dioxide 41 mmol/L; pCO2 95.5 mmHg (35-45); pH 7.21 (7.35-7.45)
[2019-03-30 13:21] LABS: Bedside Glucose 242 mg/dL (70-110)
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
[2019-03-30 13:41] LABS: BNP,B-Type NATRIURETIC PEPTIDE 172.8 pg/mL (0-100)
[2019-03-30] MEDS: Insulin Lispro 100 UNIT/ML INSULN.PEN SQ ×3 (13:49→21:33)
[2019-03-30] MEDS: hydroCHLOROthiazide 25 MG Tablet PO (14:11)
[2019-03-30] MEDS: Lisinopril 40 MG Tablet PO (14:11)
[2019-03-30] MEDS: amLODIPine 10 MG Tablet PO (14:11)
[2019-03-30] MEDS: Budesonide Respules 0.5 MG/2 ML AMPUL.NEB. INHALATION (14:37)
--- NOTE | 2019-03-30 15:15 | NURSING ---
pt currently refusing to wear bipap at this time. This RN explained to patient the importance of the bipap due to CO2 levels being critically high. Pt acknowledged understanding but states I will not wear the mask anymore, I am done
--- NOTE | 2019-03-30 15:16 | CPS ---
PT WAS ON HIGH FLOW O2 AT 4 LPM. SATURATION IS 97%. PT GIVEN AEROSOL RX AND FALLING ASLEEP. PT WAS OFFERED BIPAP PRIOR TO START OF AEROSOL RX BUT REFUSED. POST AEROSOL RX PT WAS ENCOURAGED TO WEAR BIPAP AND AGREED TO ALLOWING BIPAP TO BE PUT BACK ON. PT PLACED BACK ON BIPAP AND NURSE MADE AWARE.
--- NOTE | 2019-03-30 15:52 | CPS ---
ABG ATTEMPTED X 2 STICKS. UNABLE TO OBTAIN. PT REFUSING ANY MORE ATTEMPTS. NURSE, MOLLY, AWARE AND CHARGE NURSE ANABELL MADE AWARE. NURSES STATED THEY WILL LET DR KNOW SINCE THEY NEEDED TO INFORM HIM THAT PT WAS ALSO REFUSING CT.
--- NOTE | 2019-03-30 16:00 | NURSING ---
This RN was in with respiratory therapist when attempting ABG's. Pt refused ABG's. Pt also refusing to be taken to CT scan at this time.
[2019-03-30 17:06] LABS: Bedside Glucose 313 mg/dL (70-110)
[2019-03-30] MEDS: clonazePAM 0.5 MG Tablet PO (20:27)
[2019-03-30] MEDS: guaiFENesin 1,200 MG Tablet 1200 MG PO (20:27)
[2019-03-30 21:40] LABS: Bedside Glucose 247 mg/dL (70-110)
[2019-03-31] VITALS (55 sets, daily range): BP systolic 99–219; BP diastolic 56–195; PULSE 58–109; RESP 14–27; TEMP 36.5–36.9; O2SAT 90–99
--- NOTE | 2019-03-31 00:38 | PCM.HOSP.N ---
Hospitalist Note Patient continuing to have difficulties utilizing BiPAP, frequently refusing, still increased respiratory rate and definite need for BiPAP. Attempted oral Klonopin and as needed Ativan for anxiety with BiPAP but still currently now declining. Patient remains a full code. Will transition to the ICU and trial Precedex. Patient is already been assessed by pulmonary critical care. Do note that patient does have severe agitation and behavioral changes with steroids but given current presentation will initiate again Solu-Medrol 40 mg IV every 8 to dose now as well.
--- NOTE | 2019-03-31 01:10 | NURSING ---
CALLED REPORT TO DAYANA ROACH AT THIS TIME.
--- NOTE | 2019-03-31 01:25 | NURSING ---
Pt. arrived to ICU from PCU. Pt. on 5L NC. Respiratory at bedside and this RN and respiratory attempted to get pt. to put bipap on. Pt. swatted bipap mask away and said absolutely not. When this RN told pt. that she either needed to wear the bipap or we would have to intubate her, she said that she doesn't want anything done. Pt. states that she just wants to go home and wanted to leave earlier in the shift. Pt. able to state that she is in the hospital, but says that it is December. When pt. asked if she wants to remain a full code, she states no. I just want to go home and . Pt. remains on 5L NC and Dr. Richey paged.
--- NOTE | 2019-03-31 01:36 | NURSING ---
Pt. will not let this RN or anyone else touch her. Unable to obtain temperature.
--- NOTE | 2019-03-31 01:39 | CPS ---
Pt. will not let this RT apply the BiPAP at this time. This RT tried to explain the reasons why she needs to wear it and it still Refusing BiPAP at this time. Dr.White aware. Nixon FIELD AIDE
--- NOTE | 2019-03-31 01:45 | NURSING ---
Pt. removed BP cuff and will not put cuff back on. Dr. Richey aware.
[2019-03-31] MEDS: Midazolam 2 MG/2 ML Syringe 4 MG IV (02:25)
[2019-03-31] MEDS: Etomidate 20 MG/10 ML Vial IV (02:27)
--- NOTE | 2019-03-31 02:27 | NURSING ---
Addendum entered by Freddy Strauss 04/01/19 22:20: Succinylcholine given by Dr. Neetu Richey MD Original Note: Dr. Richey at bedside for emergent intubation. Dr. Richey spoke with patient about procedure after pt refusing to attempt bipap therapy. 0225 - 4mg IV Versed given, by Tereza Delgado, RN 0227 - 20mg IV etomidate given, by Tereza Delgado, RN 0228 - 100mg IV succinylcholine given, by Tereza Delgado, RN 0230 - 7.[address] Richey, 23 @ lip, positive color change, breath sounds present b/l clear and diminished
[2019-03-31] MEDS: Succinylcholine Chloride 200 MG/10 ML Vial 100 MG IV (02:28)
[2019-03-31] MEDS: fentaNYL drip 100 ML 5 MCG IV ×2 (02:32→12:20)
[2019-03-31] MEDS: Propofol 10MG/Ml 1,000 MG/100 ML Bottle 6.42 MG CONT INF ×5 (02:32→13:42)
--- NOTE | 2019-03-31 02:40 | RAD_ITS ---
STUDY: X-RAY CHEST REASON FOR EXAM: Female, 48 years old. Respiratory failure TECHNIQUE: Single AP portable view of the chest. COMPARISON: 03/30/2019 FINDINGS: Interval placement of an endotracheal tube with the tip extending 3 cm above the marcela. Interval placement of a nasogastric tube with the tip extending below the diaphragm. No confluent airspace infiltrate. No pleural effusion or pneumothorax. Borderline cardiomegaly, unchanged. Normal size heart. Normal mediastinum and milton. Normal visualized pulmonary arteries. Normal visualized aortic arch and descending thoracic aorta. There are diffuse degenerative changes of the visualized thoracic spine. Normal visualized ribs, clavicles, and shoulders. There is no demonstrated abnormality of the visualized soft tissue structures of the upper abdomen. RAD/Chest 1 View (Portable) IMPRESSION: 1. Appropriate positioning of supportive tubes. 2. No acute pulmonary infiltrate Electronically Signed: Shaq Bassett MD at 4:17 EDT Tel , Service support ,
--- NOTE | 2019-03-31 02:50 | RAD_ITS ---
STUDY: X-RAY - ABDOMEN/PELVIS REASON FOR EXAM: Female, 48 years old. Status post orogastric tube placement TECHNIQUE: Single AP view of the abdomen / pelvis. COMPARISON: 03/30/2019 FINDINGS: There has been interval placement of an orogastric tube with the tip extending into the lower gastric body lumen. There is an unremarkable bowel gas pattern. No bowel thickening. There is no demonstrated free abdominal air. The visualized liver, spleen and kidneys are grossly normal in size and morphology. Normal soft tissue structures. Mild patchy airspace infiltration at bilateral lung bases, right greater than left. Normal visualized osseous structures. RAD/Abdomen Single View (Portable) IMPRESSION: Orogastric tube extending to the lower gastric body lumen. Electronically Signed: Shaq Bassett MD at 3:17 EDT Tel , Service support ,
[2019-03-31] MEDS: Ipratropium/Albuterol Sulfate 3 ML AMPUL.NEB INHALATION ×5 (03:02→19:29)
[2019-03-31] MEDS: 0.9% Normal Saline 1,000 ML 100 ML IV (03:18)
[2019-03-31 03:31] LABS: Allen Test POS; Base Excess 18 mmol/L (-2 to +2); Blood Gas Specimen Type ART; FI02 50; Mode A-C; O2 Delivery Device Vent; PEEP 5; PO2 72 mmHG (75-100); RR 14; SITE L Radial; SO2 94 % (95-99); Time Given 320; Total Carbon Dioxide 45 mmol/L; Vt 450; pCO2 67.1 mmHg (35-45); pH 7.42 (7.35-7.45)
--- NOTE | 2019-03-31 03:41 | CPS ---
Critical ABG results read to Angelica MARTINEZ at 0340. Tiffani RUBBER DOWN
[2019-03-31 04:17] LABS: Absolute Lymphocyte Count 1.51 X10^3/ul (0.83-4.51); Basophil# 0.01 X10^3/uL; Basophil% 0.1 % (0-1); Eosinophil# 0.02 X10^3/uL; Eosinophils% 0.2 % (0-5); Hematocrit 48.6 % (37-47); Hemoglobin 14.9 g/dl (12.0-15.0); Lymphocyte # 1.51 X10^3/ul (4.0); Lymphocyte % 15.7 % (19-41); Mean Corp Hgb Conc 30.7 g/gl (32-36); Mean Corpuscular Hgb 27.7 pg (27.0-32.0); Mean Corpuscular Volume 90.5 fL (81-99); Mean Platelet Vol. 10.6 fl (6.2-12.0); Monocyte# 1.11 X10^3/uL; Monocyte% 11.5 % (0-10); Neutrophil # 6.95 X10^3/uL (2.7-7.7); Neutrophil % 72.3 % (47-70); POSITIVE COUNT NO; POSITIVE DIFFERENTIAL NO; POSITIVE MORPHOLOGY NO; Platelet Count 351 K/mm3 (150-450); RBC Distribution Width CV 15.1 % (11.6-14.6); RBC Distribution Width SD 49.2 fl (35.1-43.9); Red Blood Count 5.37 M/mm3 (4.2-5.4); White Blood Count 9.6 K/mm3 (4.4-11.0)
[2019-03-31 04:33] LABS: Anion Gap 5 (5-15); BUN 13 mg/dL (7-18); BUN/Creat Ratio 23.4 RATIO (10-20); Calcium,Total 8.9 mg/dL (8.5-10.1); Chloride 98 mmol/L (98-107); Creatinine, Serum 0.56 mg/dL (0.55-1.02); EST Glomerular Filtration Rate 125 mL/min (>60); Est Glom Filt Rate - Afr Amer 151 mL/min (>60); Estimated Creatinine Clearance 98.22 ml/min; Glucose 185 mg/dL (74-106); Magnesium 1.9 mg/dL (1.6-2.6); Potassium 4.1 mmol/L (3.5-5.1); Sodium Level 142 mmol/L (136-145); Triglycerides 158 mg/dL
[2019-03-31 04:43] LABS: CPK Total, Creatine Kinase 30 U/L (26-192)
[2019-03-31] MEDS: Insulin Lispro 100 UNIT/ML INSULN.PEN SC ×2 (05:27→12:19)
[2019-03-31] MEDS: 0.9% NaCl Peripheral Flush Adult/Peds IV ×5 (05:27→18:31)
[2019-03-31 05:40] LABS: Bedside Glucose 269 mg/dL (70-110)
--- NOTE | 2019-03-31 05:45 | CPS ---
pt is refusing bipap. RN aware 0136 03/30/19
--- NOTE | 2019-03-31 06:53 | PCM.PN.INT ---
Subjective: The patient was seen and examined at the bedside this morning. Events from the last 24 hours have been reviewed. Overnight, the patient became agitated and noncompliant with prescribed medical therapy. She was noted to be refusing arterial blood gases and also refused to utilize BiPAP. She subsequently went on to develop worsening respiratory distress due to her insistence to refuse medical therapy. She did require transfer to the medical intensive care unit. In addition, given the patient's continued respiratory decompensation, she did eventually require emergent intubation by the overnight provider. Objective: The patient's most recent lab work, culture data and imaging studies have all been personally reviewed. Sputum and blood cultures are pending. Surface echocardiogram revealed moderate to severe concentric LVH with an ejection fraction of 65% and evidence of diastolic dysfunction. Right ventricular systolic pressure was estimated to be 45 mmHg. General: - - Intubated, sedated and mechanically ventilated. HEENT: Atraumatic, PERRLA, Normocephalic Oral: No Gingival or Mucosal Lesions/ Ulcerations, - - Endotracheal and OG tubes currently in place Neck: Supple, No Nodes, Trachea Midline Lungs: No rhonchi, No rales, Diminished, Wheezes Cardiovascular: Regular rate, Regular Rhythm, Normal S1, Normal S2, No murmurs Abdomen: Bowel Sounds Present, Soft, Non Tender, Obese Extremities: No clubbing, No cyanosis, No edema Skin: No breakdown Musculoskeletal: No Tenderness to Palpation of Joints or Extremities, No Muscle Wasting Lymphatic: No Cervical, Supraclavicular, or Inguinal Adenopathy Neurological: - - No focal neurological deficits. Currently sedated. Vital Signs Temp Pulse Resp BP Pulse Ox 98.0 F 78 14 160/91 H 97 03/31/19 05:00 03/31/19 06:00 03/31/19 06:00 03/31/19 06:00 03/31/19 06:00 Oxygen Flow Rate (L/min) 5 Oxygen Delivery Method Mechanical Ventilator Weight: 228 lb 13.437 oz Body Mass Index (BMI) 43.1 Intake and Output for Last 24 Hours 03/29/19 03/30/19 03/31/19 23:59 23:59 23:59 Intake Total 1240 / 1240 611.5 / 611.5 Output Total 1700 / 1700 2200 / 2200 Balance -460 / -460 -1588.5 / -1588.5 Labs (Last 48 Hours) 03/30/19 03/30/19 03/30/19 09:03 09:03 09:03 WBC 12.2 H RBC 5.28 Hgb 15.1 H Hct 49.1 H MCV 93.0 MCH 28.6 MCHC 30.8 L RDW 15.1 H RDW Differential 51.1 H Plt Count 379 MPV 10.8 Immature Gran % (Auto) 0.200 Neut % (Auto) 71.3 H Lymph % (Auto) 17.7 L Dawes % (Auto) 9.7 Eos % (Auto) 0.7 Baso % (Auto) 0.4 Absolute Neuts (auto) 8.7 H Absolute Lymphs (auto) 2.16 Total Counted Not Reportable Specimen Type Sample Site pH Bicarbonate Actual POC Total CO2 Base Excess O2 Saturation O2 % ABG pCO2 ABG pO2 Baudilio Test Respiration Rate O2 Delivery Device Liter Flow Vent Mode Tidal Volume POC PEEP EPAP IPAP Blood Gas Notified Whom Blood Gas Notified Time Sodium Cancelled Potassium Cancelled Chloride Cancelled Carbon Dioxide Cancelled Anion Gap Cancelled BUN Cancelled Creatinine Cancelled Estim Creat Clear Calc Cancelled Est GFR (MDRD) Af Amer Cancelled Est GFR (MDRD) Non-Af Cancelled BUN/Creatinine Ratio Cancelled Glucose Cancelled Lactic Acid 0.9 Calcium Cancelled Magnesium Total Creatine Kinase Troponin I Cancelled B-Natriuretic Peptide Triglycerides POC Glucose 03/30/19 03/30/19 03/30/19 09:03 09:46 10:05 WBC RBC Hgb Hct MCV MCH MCHC RDW RDW Differential Plt Count MPV Immature Gran % (Auto) Neut % (Auto) Lymph % (Auto) Dawes % (Auto) Eos % (Auto) Baso % (Auto) Absolute Neuts (auto) Absolute Lymphs (auto) Total Counted Specimen Type ART Sample Site R Radial pH 7.23 L Bicarbonate Actual 39.2 H POC Total CO2 42 Base Excess 12 H O2 Saturation 93 L O2 % ABG pCO2 94.9 H* ABG pO2 85 Baudilio Test POS Respiration Rate O2 Delivery Device Nasal Can Liter Flow 6.0 Vent Mode Tidal Volume POC PEEP EPAP IPAP Blood Gas Notified Whom ED MD Blood Gas Notified Time 939 Sodium 134 L Potassium 4.9 Chloride 96 L Carbon Dioxide 41.0 H Anion Gap -3 L BUN 16 Creatinine 0.59 Estim Creat Clear Calc 93.23 Est GFR (MDRD) Af Amer 140 Est GFR (MDRD) Non-Af 116 BUN/Creatinine Ratio 27.1 H Glucose 228 H Lactic Acid Calcium 8.9 Magnesium Total Creatine Kinase Troponin I 0.056 H B-Natriuretic Peptide 172.8 H Triglycerides POC Glucose 03/30/19 03/30/19 03/30/19 11:19 13:17 16:53 WBC RBC Hgb Hct MCV MCH MCHC RDW RDW Differential Plt Count MPV Immature Gran % (Auto) Neut % (Auto) Lymph % (Auto) Dawes % (Auto) Eos % (Auto) Baso % (Auto) Absolute Neuts (auto) Absolute Lymphs (auto) Total Counted Specimen Type ART Sample Site R Radial pH 7.21 L Bicarbonate Actual 38.5 H POC Total CO2 41 Base Excess 11 H O2 Saturation 89 L O2 % 40 ABG pCO2 95.5 H* ABG pO2 73 L Baudilio Test POS Respiration Rate 14 O2 Delivery Device Bi / C PAP Liter Flow Vent Mode Tidal Volume POC PEEP EPAP 6 IPAP 14 Blood Gas Notified Whom ED Blood Gas Notified Time 1113 Sodium Potassium Chloride Carbon Dioxide Anion Gap BUN Creatinine Estim Creat Clear Calc Est GFR (MDRD) Af Amer Est GFR (MDRD) Non-Af BUN/Creatinine Ratio Glucose Lactic Acid Calcium Magnesium Total Creatine Kinase Troponin I B-Natriuretic Peptide Triglycerides POC Glucose 242 H 313 H 03/30/19 03/31/19 03/31/19 21:31 03:24 04:05 WBC 9.6 RBC 5.37 Hgb 14.9 Hct 48.6 H MCV 90.5 MCH 27.7 MCHC 30.7 L RDW 15.1 H RDW Differential 49.2 H Plt Count 351 MPV 10.6 Immature Gran % (Auto) 0.200 Neut % (Auto) 72.3 H Lymph % (Auto) 15.7 L Dawes % (Auto) 11.5 H Eos % (Auto) 0.2 Baso % (Auto) 0.1 Absolute Neuts (auto) 7.0 Absolute Lymphs (auto) 1.51 Total Counted Not Reportable Specimen Type ART Sample Site L Radial pH 7.42 Bicarbonate Actual 43.0 H POC Total CO2 45 Base Excess 18 H O2 Saturation 94 L O2 % 50 ABG pCO2 67.1 H* ABG pO2 72 L Baudilio Test POS Respiration Rate 14 O2 Delivery Device Vent Liter Flow Vent Mode A-C Tidal Volume 450 POC PEEP 5 EPAP IPAP Blood Gas Notified Whom [facility] Blood Gas Notified Time 320 Sodium Potassium Chloride Carbon Dioxide Anion Gap BUN Creatinine Estim Creat Clear Calc Est GFR (MDRD) Af Amer Est GFR (MDRD) Non-Af BUN/Creatinine Ratio Glucose Lactic Acid Calcium Magnesium Total Creatine Kinase Troponin I B-Natriuretic Peptide Triglycerides POC Glucose 247 H 03/31/19 03/31/19 03/31/19 04:05 04:05 05:25 WBC RBC Hgb Hct MCV MCH MCHC RDW RDW Differential Plt Count MPV Immature Gran % (Auto) Neut % (Auto) Lymph % (Auto) Dawes % (Auto) Eos % (Auto) Baso % (Auto) Absolute Neuts (auto) Absolute Lymphs (auto) Total Counted Specimen Type Sample Site pH Bicarbonate Actual POC Total CO2 Base Excess O2 Saturation O2 % ABG pCO2 ABG pO2 Baudilio Test Respiration Rate O2 Delivery Device Liter Flow Vent Mode Tidal Volume POC PEEP EPAP IPAP Blood Gas Notified Whom Blood Gas Notified Time Sodium 142 Potassium 4.1 Chloride 98 Carbon Dioxide 39.0 H Anion Gap 5 BUN 13 Creatinine 0.56 Estim Creat Clear Calc 98.22 Est GFR (MDRD) Af Amer 151 Est GFR (MDRD) Non-Af 125 BUN/Creatinine Ratio 23.4 H Glucose 185 H Lactic Acid Calcium 8.9 Magnesium 1.9 Total Creatine Kinase 30 Troponin I B-Natriuretic Peptide Triglycerides 158 POC Glucose 269 H Clinical Impression(s) from Imaging Studies Chest X-Ray 03/30/19 08:55 IMPRESSION: Mild degree of increased markings at the right lung base suggestive of atelectasis and/or early infiltrate. Follow-up is recommended. Electronically Signed: Luis Mistry, at 9:10 EDT , Service support , Chest X-Ray 03/31/19 02:40 IMPRESSION: 1. Appropriate positioning of supportive tubes. 2. No acute pulmonary infiltrate Electronically Signed: Shaq Bassett MD at 4:17 EDT Tel , Service support , KUB X-Ray 03/31/19 02:50 IMPRESSION: Orogastric tube extending to the lower gastric body lumen. Electronically Signed: Shaq Bassett MD at 3:17 EDT Tel , Service support , Medical Necessity - Tobacco Use Smoking Status: Former smoker Assessment/Plan All Active Problems (Last Reviewed 03/30/19 @ 11:18 by Melquiades Cheng MD) Acute respiratory failure with hypoxia (Acute) Elevated troponin (Acute) Acute respiratory failure with hypoxia and hypercapnia (Acute) History of tubal ligation (Resolved) History of section (Resolved) COPD with acute exacerbation (Acute) Hypertensive urgency (Ruled-out) Otitis media (Ruled-out) Tobacco abuse (Resolved) RECOMMENDATIONS: 1. Obtain respiratory viral panel. 2. Cancel high resolution chest CT. Given that venous thromboembolism is oftentimes a precipitant for an exacerbation, will obtain CTA chest. 3. Wean FiO2 as tolerated. Maintain oxygen saturations 88 to 92%. 4. Start tube feeds today. 5. Discontinue IV steroids. 6. Continue scheduled bronchodilators and budesonide. 7. Restart home Neurontin at half dose to prevent withdrawal. 8. Continue antimicrobial coverage. 9. Continue appropriate ICU prophylaxis IMPRESSIONS: 1. Acute on chronic combined respiratory failure The patient has a self-reported history of both COPD and asthma along with a baseline 4 L/min supplemental oxygen requirement. The patient is also a chronic CO2 retainer. Although she was seen initially in the pulmonary medicine clinic, the patient never followed up, nor completed any of her testing. She does have an extensive smoking history and continues to smoke, as recently as 4 days prior to her hospital admission. While the patient initially responded appropriately to the use of bronchodilators and noninvasive positive pressure ventilation, she later became noncompliant with medical therapy and had to be intubated as a consequence of this. For now, the patient will be continued on invasive mechanical ventilatory support. Will obtain CTA chest today. Continue bronchodilators and scheduled budesonide. IV steroids have been discontinued, given the significant behavioral side effects that she suffered as a consequence of their use previously. Antibiotics will be continued for now pending infectious work-up. We will also plan to obtain a respiratory viral panel. I would favor the use of Precedex and fentanyl for sedation. Plan to wean propofol off throughout the course of today. Maintain oxygen saturations 88 to 92%. 2. Heart failure with preserved ejection fraction/pulmonary hypertension/troponin elevation Troponin elevation likely secondary to hypoxemia. 3. Clinical concern for underlying sleep disordered breathing The patient needs to follow-up with the pulmonary medicine clinic so that a diagnostic polysomnogram can be completed. In the interim, once the patient is able to be extubated, would recommend empiric utilization of AVAPS with naps and nightly. 4. Continuous tobacco dependency/diabetes mellitus/morbid obesity/history of medical noncompliance/chronic pain syndrome Complicates care, management, recovery and prognosis. Continue home antihypertensive regimen. Nicotine replacement therapy can be offered to the patient while she is admitted to the hospital. TIME: 45 minutes of critical care time, independent of procedures, was spent addressing the patient's acute on chronic combined respiratory failure, heart failure with preserved ejection fraction, pulmonary hypertension, suspected obstructive sleep apnea, continuous tobacco dependency, review of all data and collaboration with the care team. ([id number]) Code Visit [id number]: [id number] Critical care first hour
--- NOTE | 2019-03-31 06:57 | CT_ITS ---
STUDY: CTA CHEST REASON FOR EXAM: Female, 48 years old. Acute respiratory failure. Hypoxia. RADIATION DOSAGE (If Supplied By Facility): CTDIvol = ( 12.66 ) mGy, DLP = ( 427.89 ) mGycm TECHNIQUE: The examination was performed with the intravenous administration of 100CC IV Isovue 370. Post-processing of the angiographic images was performed, with multiplanar reformation and 3D reconstruction. Individualized dose optimization techniques were used for this CT. COMPARISON: Comparison is made with prior examination dated June 09, 2018. FINDINGS: An endotracheal tube is in situ. An orogastric tube is seen with the tip in the body of the stomach. Normal enhancement of the main pulmonary artery and right and left pulmonary arteries. Normal enhancement of the bilateral peripheral pulmonary arteries. There is no demonstrated pulmonary embolism. Normal thoracic aorta and visualized great vessels. There is no demonstrated aortic dissection. Normal heart and pericardium. Normal mediastinum. Normal hilar regions. Normal visualized trachea and bronchi. The lungs are well expanded. Mild degree of increased markings at the right lung base suggestive of atelectasis and/or early infiltrate. Minimal increased markings at the left lung base with bronchiectasis. Normal pleura. Normal chest wall structures. There are degenerative changes of thoracic spine. Focal sclerotic focus in the T8 vertebrae most likely representing a bone island. Normal visualized upper abdomen. CT/CTA Chest W/WO Contrast IMPRESSION: There is no evidence of pulmonary embolism. Mild increased markings at the right lung base suggestive of atelectasis. Mild scarring at the left lung base. Electronically Signed: Luis Mistry, at 11:10 EDT , Service support ,
--- NOTE | 2019-03-31 07:00 | PN_ITS ---
Subjective: The patient was seen and examined at the bedside this morning. Events from the last 24 hours have been reviewed. Overnight, the patient became agitated and noncompliant with prescribed medical therapy. She was noted to be refusing arterial blood gases and also refused to utilize BiPAP. She subsequently went on to develop worsening respiratory distress due to her insistence to refuse medical therapy. She did require transfer to the medical intensive care unit. In addition, given the patient's continued respiratory decompensation, she did eventually require emergent intubation by the overnight provider. Objective: The patient's most recent lab work, culture data and imaging studies have all been personally reviewed. Sputum and blood cultures are pending. Surface echocardiogram revealed moderate to severe concentric LVH with an ejection fraction of 65% and evidence of diastolic dysfunction. Right ventricular systolic pressure was estimated to be 45 mmHg. General: - - Intubated, sedated and mechanically ventilated. HEENT: Atraumatic, PERRLA, Normocephalic Oral: No Gingival or Mucosal Lesions/ Ulcerations, - - Endotracheal and OG tubes currently in place Neck: Supple, No Nodes, Trachea Midline Lungs: No rhonchi, No rales, Diminished, Wheezes Cardiovascular: Regular rate, Regular Rhythm, Normal S1, Normal S2, No murmurs Abdomen: Bowel Sounds Present, Soft, Non Tender, Obese Extremities: No clubbing, No cyanosis, No edema Skin: No breakdown Musculoskeletal: No Tenderness to Palpation of Joints or Extremities, No Muscle Wasting Lymphatic: No Cervical, Supraclavicular, or Inguinal Adenopathy Neurological: - - No focal neurological deficits. Currently sedated. Vital Signs Temp Pulse Resp BP Pulse Ox 98.0 F 78 14 160/91 H 97 03/31/19 05:00 03/31/19 06:00 03/31/19 06:00 03/31/19 06:00 03/31/19 06:00 Oxygen Flow Rate (L/min) 5 Oxygen Delivery Method Mechanical Ventilator Weight: 228 lb 13.437 oz Body Mass Index (BMI) 43.1 Intake and Output for Last 24 Hours 03/29/19 03/30/19 03/31/19 23:59 23:59 23:59 Intake Total 1240 / 1240 611.5 / 611.5 Output Total 1700 / 1700 2200 / 2200 Balance -460 / -460 -1588.5 / -1588.5 Labs (Last 48 Hours) 03/30/19 03/30/19 03/30/19 09:03 09:03 09:03 WBC 12.2 H RBC 5.28 Hgb 15.1 H Hct 49.1 H MCV 93.0 MCH 28.6 MCHC 30.8 L RDW 15.1 H RDW Differential 51.1 H Plt Count 379 MPV 10.8 Immature Gran % (Auto) 0.200 Neut % (Auto) 71.3 H Lymph % (Auto) 17.7 L [place] % (Auto) 9.7 Eos % (Auto) 0.7 Baso % (Auto) 0.4 Absolute Neuts (auto) 8.7 H Absolute Lymphs (auto) 2.16 Total Counted Not Reportable Specimen Type Sample Site pH Bicarbonate Actual POC Total CO2 Base Excess O2 Saturation O2 % ABG pCO2 ABG pO2 Baudilio Test Respiration Rate O2 Delivery Device Liter Flow Vent Mode Tidal Volume POC PEEP EPAP IPAP Blood Gas Notified Whom Blood Gas Notified Time Sodium Cancelled Potassium Cancelled Chloride Cancelled Carbon Dioxide Cancelled Anion Gap Cancelled BUN Cancelled Creatinine Cancelled Estim Creat Clear Calc Cancelled Est GFR (MDRD) Af Amer Cancelled Est GFR (MDRD) Non-Af Cancelled BUN/Creatinine Ratio Cancelled Glucose Cancelled Lactic Acid 0.9 Calcium Cancelled Magnesium Total Creatine Kinase Troponin I Cancelled B-Natriuretic Peptide Triglycerides POC Glucose 03/30/19 03/30/19 03/30/19 09:03 09:46 10:05 WBC RBC Hgb Hct MCV MCH MCHC RDW RDW Differential Plt Count MPV Immature Gran % (Auto) Neut % (Auto) Lymph % (Auto) [place] % (Auto) Eos % (Auto) Baso % (Auto) Absolute Neuts (auto) Absolute Lymphs (auto) Total Counted Specimen Type ART Sample Site R Radial pH 7.23 L Bicarbonate Actual 39.2 H POC Total CO2 42 Base Excess 12 H O2 Saturation 93 L O2 % ABG pCO2 94.9 H* ABG pO2 85 Baudilio Test POS Respiration Rate O2 Delivery Device Nasal Can Liter Flow 6.0 Vent Mode Tidal Volume POC PEEP EPAP IPAP Blood Gas Notified Whom ED MD Blood Gas Notified Time 939 Sodium 134 L Potassium 4.9 Chloride 96 L Carbon Dioxide 41.0 H Anion Gap -3 L BUN 16 Creatinine 0.59 Estim Creat Clear Calc 93.23 Est GFR (MDRD) Af Amer 140 Est GFR (MDRD) Non-Af 116 BUN/Creatinine Ratio 27.1 H Glucose 228 H Lactic Acid Calcium 8.9 Magnesium Total Creatine Kinase Troponin I 0.056 H B-Natriuretic Peptide 172.8 H Triglycerides POC Glucose 03/30/19 03/30/19 03/30/19 11:19 13:17 16:53 WBC RBC Hgb Hct MCV MCH MCHC RDW RDW Differential Plt Count MPV Immature Gran % (Auto) Neut % (Auto) Lymph % (Auto) [place] % (Auto) Eos % (Auto) Baso % (Auto) Absolute Neuts (auto) Absolute Lymphs (auto) Total Counted Specimen Type ART Sample Site R Radial pH 7.21 L Bicarbonate Actual 38.5 H POC Total CO2 41 Base Excess 11 H O2 Saturation 89 L O2 % 40 ABG pCO2 95.5 H* ABG pO2 73 L Baudilio Test POS Respiration Rate 14 O2 Delivery Device Bi / C PAP Liter Flow Vent Mode Tidal Volume POC PEEP EPAP 6 IPAP 14 Blood Gas Notified Whom ED Blood Gas Notified Time 1113 Sodium Potassium Chloride Carbon Dioxide Anion Gap BUN Creatinine Estim Creat Clear Calc Est GFR (MDRD) Af Amer Est GFR (MDRD) Non-Af BUN/Creatinine Ratio Glucose Lactic Acid Calcium Magnesium Total Creatine Kinase Troponin I B-Natriuretic Peptide Triglycerides POC Glucose 242 H 313 H 03/30/19 03/31/19 03/31/19 21:31 03:24 04:05 WBC 9.6 RBC 5.37 Hgb 14.9 Hct 48.6 H MCV 90.5 MCH 27.7 MCHC 30.7 L RDW 15.1 H RDW Differential 49.2 H Plt Count 351 MPV 10.6 Immature Gran % (Auto) 0.200 Neut % (Auto) 72.3 H Lymph % (Auto) 15.7 L [place] % (Auto) 11.5 H Eos % (Auto) 0.2 Baso % (Auto) 0.1 Absolute Neuts (auto) 7.0 Absolute Lymphs (auto) 1.51 Total Counted Not Reportable Specimen Type ART Sample Site L Radial pH 7.42 Bicarbonate Actual 43.0 H POC Total CO2 45 Base Excess 18 H O2 Saturation 94 L O2 % 50 ABG pCO2 67.1 H* ABG pO2 72 L Baudilio Test POS Respiration Rate 14 O2 Delivery Device Vent Liter Flow Vent Mode A-C Tidal Volume 450 POC PEEP 5 EPAP IPAP Blood Gas Notified Whom [facility] Blood Gas Notified Time 320 Sodium Potassium Chloride Carbon Dioxide Anion Gap BUN Creatinine Estim Creat Clear Calc Est GFR (MDRD) Af Amer Est GFR (MDRD) Non-Af BUN/Creatinine Ratio Glucose Lactic Acid Calcium Magnesium Total Creatine Kinase Troponin I B-Natriuretic Peptide Triglycerides POC Glucose 247 H 03/31/19 03/31/19 03/31/19 04:05 04:05 05:25 WBC RBC Hgb Hct MCV MCH MCHC RDW RDW Differential Plt Count MPV Immature Gran % (Auto) Neut % (Auto) Lymph % (Auto) [place] % (Auto) Eos % (Auto) Baso % (Auto) Absolute Neuts (auto) Absolute Lymphs (auto) Total Counted Specimen Type Sample Site pH Bicarbonate Actual POC Total CO2 Base Excess O2 Saturation O2 % ABG pCO2 ABG pO2 Baudilio Test Respiration Rate O2 Delivery Device Liter Flow Vent Mode Tidal Volume POC PEEP EPAP IPAP Blood Gas Notified Whom Blood Gas Notified Time Sodium 142 Potassium 4.1 Chloride 98 Carbon Dioxide 39.0 H Anion Gap 5 BUN 13 Creatinine 0.56 Estim Creat Clear Calc 98.22 Est GFR (MDRD) Af Amer 151 Est GFR (MDRD) Non-Af 125 BUN/Creatinine Ratio 23.4 H Glucose 185 H Lactic Acid Calcium 8.9 Magnesium 1.9 Total Creatine Kinase 30 Troponin I B-Natriuretic Peptide Triglycerides 158 POC Glucose 269 H Clinical Impression(s) from Imaging Studies Chest X-Ray 03/30/19 08:55 IMPRESSION: Mild degree of increased markings at the right lung base suggestive of atelectasis and/or early infiltrate. Follow-up is recommended. Electronically Signed: Luis Mistry, at 9:10 EDT , Service support , Chest X-Ray 03/31/19 02:40 IMPRESSION: 1. Appropriate positioning of supportive tubes. 2. No acute pulmonary infiltrate Electronically Signed: Shaq Bassett MD at 4:17 EDT Tel , Service support , KUB X-Ray 03/31/19 02:50 IMPRESSION: Orogastric tube extending to the lower gastric body lumen. Electronically Signed: Shaq Bassett MD at 3:17 EDT Tel , Service support , Medical Necessity - Tobacco Use Smoking Status: Former smoker Assessment/Plan All Active Problems (Last Reviewed 03/30/19 @ 11:18 by Melquiades Cheng MD) Acute respiratory failure with hypoxia (Acute) Elevated troponin (Acute) Acute respiratory failure with hypoxia and hypercapnia (Acute) History of tubal ligation (Resolved) History of section (Resolved) COPD with acute exacerbation (Acute) Hypertensive urgency (Ruled-out) Otitis media (Ruled-out) Tobacco abuse (Resolved) RECOMMENDATIONS: 1. Obtain respiratory viral panel. 2. Cancel high resolution chest CT. Given that venous thromboembolism is oftentimes a precipitant for an exacerbation, will obtain CTA chest. 3. Wean FiO2 as tolerated. Maintain oxygen saturations 88 to 92%. 4. Start tube feeds today. 5. Discontinue IV steroids. 6. Continue scheduled bronchodilators and budesonide. 7. Restart home Neurontin at half dose to prevent withdrawal. 8. Continue antimicrobial coverage. 9. Continue appropriate ICU prophylaxis IMPRESSIONS: 1. Acute on chronic combined respiratory failure The patient has a self-reported history of both COPD and asthma along with a baseline 4 L/min supplemental oxygen requirement. The patient is also a chronic CO2 retainer. Although she was seen initially in the pulmonary medicine clinic, the patient never followed up, nor completed any of her testing. She does have an extensive smoking history and continues to smoke, as recently as 4 days prior to her hospital admission. While the patient initially responded appropriately to the use of bronchodilators and noninvasive positive pressure ventilation, she later became noncompliant with medical therapy and had to be intubated as a consequence of this. For now, the patient will be continued on invasive mechanical ventilatory support. Will obtain CTA chest today. Continue bronc hodilators and scheduled budesonide. IV steroids have been discontinued, given the significant behavioral side effects that she suffered as a consequence of their use previously. Antibiotics will be continued for now pending infectious work-up. We will also plan to obtain a respiratory viral panel. I would favor the use of Precedex and fentanyl for sedation. Plan to wean propofol off throughout the course of today. Maintain oxygen saturations 88 to 92%. 2. Heart failure with preserved ejection fraction/pulmonary hypertension/troponin elevation Troponin elevation likely secondary to hypoxemia. 3. Clinical concern for underlying sleep disordered breathing The patient needs to follow-up with the pulmonary medicine clinic so that a diagnostic polysomnogram can be completed. In the interim, once the patient is able to be extubated, would recommend empiric utilization of AVAPS with naps and nightly. 4. Continuous tobacco dependency/diabetes mellitus/morbid obesity/history of medical noncompliance/chronic pain syndrome Complicates care, management, recovery and prognosis. Continue home antihyper tensive regimen. Nicotine replacement therapy can be offered to the patient while she is admitted to the hospital. TIME: 45 minutes of critical care time, independent of procedures, was spent addressing the patient's acute on chronic combined respiratory failure, heart failure with preserved ejection fraction, pulmonary hypertension, suspected obstructive sleep apnea, continuous tobacco dependency, review of all data and collaboration with the care team. ([id number]) Code Visit 9xxxx: [id number] Critical care first hour
--- NOTE | 2019-03-31 08:15 | PCM.PN.HOSP ---
Subjective: Patient is a 48-year-old lady with history of advanced COPD and asthma discharged from the hospital a week prior to her readmission presented with progressive shortness of breath. An assessment of acute hypercapnic and hypoxic respiratory failure secondary to COPD with acute exacerbation placed on noninvasive ventilation nasal CPAP with consultation placed to pulmonary medicine. Patient declined to wear the CPAP her condition deteriorated during the night resulting in patient being intubated and transferred to the intensive care unit. Objective: GENERAL:sedated on the vent HEENT: Atraumatic; moist oral mucosa EYES; Anicteric, Normal Conjunctiva NECK; supple, normal thyroid, RESPIRATORY: Diminished to auscultation bilaterally, CARDIOVASCULAR: Regular S1 S2, GI: soft, non-tender, normoactive bowel sounds, : No Renal angle tenderness; EXTREMITIES: No edema, no clubbing, no cyanosis. MUSCULOSKELETAL: No Joint Tenderness; no muscle waisting NEURO: Unable to assess patient on the vent SKIN: No Rash PSYCH; Unable to assess patient on the vent Vitals/I&O's: Vital Signs Temp Pulse Resp BP Pulse Ox 98.0 F 69 14 148/81 H 97 03/31/19 05:00 03/31/19 08:00 03/31/19 07:00 03/31/19 07:00 03/31/19 07:00 Oxygen Flow Rate (L/min) 5 Oxygen Delivery Method Mechanical Ventilator Weight: 103.8 kg Body Mass Index (BMI) 43.1 Intake and Output for Last 24 Hours 03/29/19 03/30/19 03/31/19 23:59 23:59 23:59 Intake Total 1240 / 1240 611.5 / 611.5 Output Total 1700 / 1700 2200 / 2200 Balance -460 / -460 -1588.5 / -1588.5 Laboratory Results 03/30/19 09:03: WBC 12.2 H, RBC 5.28, Hgb 15.1 H, Hct 49.1 H, MCV 93.0, MCH 28.6, MCHC 30.8 L, RDW 15.1 H, RDW Differential 51.1 H, Plt Count 379, MPV 10.8, Immature Gran % (Auto) 0.200, Neut % (Auto) 71.3 H, Lymph % (Auto) 17.7 L, [place] % (Auto) 9.7, Eos % (Auto) 0.7, Baso % (Auto) 0.4, Absolute Neuts (auto) 8.7 H, Absolute Lymphs (auto) 2.16, Total Counted Not Reportable 03/30/19 09:03: Sodium Cancelled, Potassium Cancelled, Chloride Cancelled, Carbon Dioxide Cancelled, Anion Gap Cancelled, BUN Cancelled, Creatinine Cancelled, Estim Creat Clear Calc Cancelled, Est GFR (MDRD) Af Amer Cancelled, Est GFR (MDRD) Non-Af Cancelled, BUN/Creatinine Ratio Cancelled, Glucose Cancelled, Calcium Cancelled, Troponin I Cancelled 03/30/19 09:03: Lactic Acid 0.9 03/30/19 09:03: B-Natriuretic Peptide 172.8 H 03/30/19 09:46: Specimen Type ART, Sample Site R Radial, pH 7.23 L, Bicarbonate Actual 39.2 H, POC Total CO2 42, Base Excess 12 H, O2 Saturation 93 L, ABG pCO2 94.9 H*, ABG pO2 85, Baudilio Test POS, O2 Delivery Device Nasal Can, Liter Flow 6.0, Blood Gas Notified Whom ED MD, Blood Gas Notified Time 939 03/30/19 10:05: Sodium 134 L, Potassium 4.9, Chloride 96 L, Carbon Dioxide 41.0 H, Anion Gap -3 L, BUN 16, Creatinine 0.59, Estim Creat Clear Calc 93.23, Est GFR (MDRD) Af Amer 140, Est GFR (MDRD) Non-Af 116, BUN/Creatinine Ratio 27.1 H, Glucose 228 H, Calcium 8.9, Troponin I 0.056 H 03/30/19 11:19: Specimen Type ART, Sample Site R Radial, pH 7.21 L, Bicarbonate Actual 38.5 H, POC Total CO2 41, Base Excess 11 H, O2 Saturation 89 L, O2 % 40, ABG pCO2 95.5 H*, ABG pO2 73 L, Baudilio Test POS, Respiration Rate 14, O2 Delivery Device Bi / C PAP, EPAP 6, IPAP 14, Blood Gas Notified Whom ED MD, Blood Gas Notified Time 1113 03/30/19 13:17: POC Glucose 242 H 03/30/19 16:53: POC Glucose 313 H 03/30/19 21:31: POC Glucose 247 H 03/31/19 03:24: Specimen Type ART, Sample Site L Radial, pH 7.42, Bicarbonate Actual 43.0 H, POC Total CO2 45, Base Excess 18 H, O2 Saturation 94 L, O2 % 50, ABG pCO2 67.1 H*, ABG pO2 72 L, Baudilio Test POS, Respiration Rate 14, O2 Delivery Device Vent, Vent Mode A-C, Tidal Volume 450, POC PEEP 5, Blood Gas Notified Whom URVASHI MARTINEZ, Blood Gas Notified Time 320 03/31/19 04:05: WBC 9.6, RBC 5.37, Hgb 14.9, Hct 48.6 H, MCV 90.5, MCH 27.7, MCHC 30.7 L, RDW 15.1 H, RDW Differential 49.2 H, Plt Count 351, MPV 10.6, Immature Gran % (Auto) 0.200, Neut % (Auto) 72.3 H, Lymph % (Auto) 15.7 L, [place] % (Auto) 11.5 H, Eos % (Auto) 0.2, Baso % (Auto) 0.1, Absolute Neuts (auto) 7.0, Absolute Lymphs (auto) 1.51, Total Counted Not Reportable 03/31/19 04:05: Sodium 142, Potassium 4.1, Chloride 98, Carbon Dioxide 39.0 H, Anion Gap 5, BUN 13, Creatinine 0.56, Estim Creat Clear Calc 98.22, Est GFR (MDRD) Af Amer 151, Est GFR (MDRD) Non-Af 125, BUN/Creatinine Ratio 23.4 H, Glucose 185 H, Calcium 8.9, Magnesium 1.9, Triglycerides 158 03/31/19 04:05: Total Creatine Kinase 30 03/31/19 05:25: POC Glucose 269 H Current Medications Acetaminophen (Tylenol) 650 mg PO Q6H PRN PRN PRN Reason: Mild Pain (1-3)/Temp > 100.7 F Al Hydroxide/Mg Hydroxide (Mylanta Ii) 30 ml PO Q6H PRN PRN PRN Reason: Gastric Burning Albuterol Sulfate (Ventolin Aerosols) 2.5 mg INHALATION Q2H PRN PRN PRN Reason: Shortness of Breath/Wheezing Albuterol/Ipratropium (Duoneb) 3 ml INHALATION Q4H.RT [facility] Last Admin: 03/31/19 06:45 Dose: 3 ml Amlodipine Besylate (Norvasc) 10 mg GT DAILY [facility] Budesonide (Pulmicort Aerosol) 0.5 mg INHALATION BID.RT [facility] Last Admin: 03/30/19 14:37 Dose: 0.5 mg Chlorhexidine Gluconate () 15 ml PO BID [facility] Dextrose (D50w Syringe) 0 gm IV X1 PRN; Protocol PRN Reason: Hypoglycemia Enoxaparin Sodium (Lovenox) 40 mg SC DAILY@1000 [facility] Famotidine (Pepcid) 20 mg GT BID [facility] Glucagon () 1 mg IM .X1 PRN PRN Reason: Hypoglycemia Hydralazine HCl (Apresoline Iv) 10 mg IV Q4H PRN PRN PRN Reason: Sbp Greater Than 160 Hydrochlorothiazide (Hctz) 25 mg GT DAILY [facility] Azithromycin 500 mg/ Dextrose 255 mls @ 250 mls/hr IV Q24 [facility] Stop: 04/01/19 11:02 Last Admin: 03/30/19 14:10 Dose: 250 mls/hr Fentanyl () 100 mls @ 5 mls/hr IV .Q20H [facility] Last Admin: 03/31/19 02:32 Dose: 5 mls/hr Propofol (Diprivan) 1,000 mg in 100 mls @ 6.42 mls/hr CONT INF .Q12H [facility] Last Admin: 03/31/19 07:05 Dose: 6.42 mls/hr Sodium Chloride () 250 mls @ 15 mls/hr IV .[id number] PRN PRN Reason: SALINE FLUSH Dexmedetomidine HCl 1,000 mcg/ (Sodium Chloride) 250 mls @ 13.38 mls/hr CONT INF .[id number] [facility] Insulin Glargine (Lantus (Bkc)) 35 units SC DAILY [facility] Insulin Human Lispro (Humalog Kwikpen (Bkc)) 0 unit SC Q6 [facility]; Protocol Last Admin: 03/31/19 05:27 Dose: 6 units Lisinopril (Zestril) 40 mg GT DAILY [facility] Magnesium Hydroxide (Milk Of Magnesia) 30 ml PO DAILY PRN PRN PRN Reason: Constipation Ondansetron HCl (Zofran) 4 mg IV Q8H PRN PRN PRN Reason: NAUSEA/VOMITING Sodium Chloride () 5 - 15 ml IV UD PRN PRN Reason: SALINE FLUSH Last Admin: 03/31/19 05:34 Dose: 10 ml Throat Lozenges (Cepacol Sore Throat Lozenge) 1 lozenge MUCOUS MEM Q2H PRN PRN PRN Reason: Sore throat or cough Medical Necessity - Tobacco Use Smoking Status: Former smoker Assessment/Plan All Active Problems (Last Reviewed 03/30/19 @ 11:18 by Melquiades Cheng MD) Acute respiratory failure with hypoxia (Acute) Elevated troponin (Acute) Acute respiratory failure with hypoxia and hypercapnia (Acute) History of tubal ligation (Resolved) History of section (Resolved) COPD with acute exacerbation (Acute) Hypertensive urgency (Ruled-out) Otitis media (Ruled-out) Tobacco abuse (Resolved) Patient is a 48-year-old lady with history of advanced COPD and asthma discharged from the hospital a week prior to her readmission presented with progressive shortness of breath 1. Acute hypercapnic and hypoxic respiratory failure secondary to COPD with acute exacerbation patient has been admitted to monitored bed for management of patient underlying etiology. Patient in addition was placed on noninvasive ventilation nasal CPAP with consultation placed to pulmonary medicine. Patient declined to wear the CPAP her condition deteriorated during the night resulting in patient being intubated and transferred to the intensive care unit. 2. COPD with acute exacerbation; treatment as discussed above 3. Chronically elevated troponin 4. Chronic hypoxic respiratory failure on home oxygen 5. Essential hypertension-blood pressure controlled, home medications continued with dose adjustment as needed 6. Chronic back pain 7. Morbid obesity with BMI of 42: Weight loss advised 8. DVT prophylaxis Lovenox Code Visit Inpatient E&M: 88054 Subs Hosp L3
--- NOTE | 2019-03-31 08:19 | PN_ITS ---
Subjective: Patient is a 48-year-old lady with history of advanced COPD and asthma discharged from the hospital a week prior to her readmission presented with pr ogressive shortness of breath. An assessment of acute hypercapnic and hypoxic respiratory failure secondary to COPD with acute exacerbation placed on noninvasive ventilation nasal CPAP with consultation placed to pulmonary medicine. Patient declined to wear the CPAP her condition deteriorated during the night resulting in patient being intubated and transferred to the intensive care unit. Objective: GENERAL:sedated on the vent HEENT: Atraumatic; moist oral mucosa EYES; Anicteric, Normal Conjunctiva NECK; supple, normal thyroid, RESPIRATORY: Diminished to auscultation bilaterally, CARDIOVASCULAR: Regular S1 S2, GI: soft, non-tender, normoactive bowel sounds, : No Renal angle tenderness; EXTREMITIES: No edema, no clubbing, no cyanosis. MUSCULOSKELETAL: No Joint Tenderness; no muscle waisting NEURO: Unable to assess patient on the vent SKIN: No Rash PSYCH; Unable to assess patient on the vent Vitals/I&O's: Vital Signs Temp Pulse Resp BP Pulse Ox 98.0 F 69 14 148/81 H 97 03/31/19 05:00 03/31/19 08:00 03/31/19 07:00 03/31/19 07:00 03/31/19 07:00 Oxygen Flow Rate (L/min) 5 Oxygen Delivery Method Mechanical Ventilator Weight: 103.8 kg Body Mass Index (BMI) 43.1 Intake and Output for Last 24 Hours 03/29/19 03/30/19 03/31/19 23:59 23:59 23:59 Intake Total 1240 / 1240 611.5 / 611.5 Output Total 1700 / 1700 2200 / 2200 Balance -460 / -460 -1588.5 / -1588.5 Laboratory Results 03/30/19 09:03: WBC 12.2 H, RBC 5.28, Hgb 15.1 H, Hct 49.1 H, MCV 93.0, MCH 28.6, MCHC 30.8 L, RDW 15.1 H, RDW Differential 51.1 H, Plt Count 379, MPV 10.8, Immature Gran % (Auto) 0.200, Neut % (Auto) 71.3 H, Lymph % (Auto) 17.7 L, Casey % (Auto) 9.7, Eos % (Auto) 0.7, Baso % (Auto) 0.4, Absolute Neuts (auto) 8.7 H, Absolute Lymphs (auto) 2.16, Total Counted Not Reportable 03/30/19 09:03: Sodium Cancelled, Potassium Cancelled, Chloride Cancelled, Carbon Dioxide Cancelled, Anion Gap Cancelled, BUN Cancelled, Creatinine Cancelled, Estim Creat Clear Calc Cancelled, Est GFR (MDRD) Af Amer Cancelled, Est GFR (MDRD) Non-Af Cancelled, BUN/Creatinine Ratio Cancelled, Glucose Cancelled, Calcium Cancelled, Troponin I Cancelled 03/30/19 09:03: Lactic Acid 0.9 03/30/19 09:03: B-Natriuretic Peptide 172.8 H 03/30/19 09:46: Specimen Type ART, Sample Site R Radial, pH 7.23 L, Bicarbonate Actual 39.2 H, POC Total CO2 42, Base Excess 12 H, O2 Saturation 93 L, ABG pCO2 94.9 H*, ABG pO2 85, Baudilio Test POS, O2 Delivery Device Nasal Can, Liter Flow 6.0, Blood Gas Notified Whom ED , Blood Gas Notified Time 939 03/30/19 10:05: Sodium 134 L, Potassium 4.9, Chloride 96 L, Carbon Dioxide 41.0 H, Anion Gap -3 L, BUN 16, Creatinine 0.59, Estim Creat Clear Calc 93.23, Est GFR (MDRD) Af Amer 140, Est GFR (MDRD) Non-Af 116, BUN/Creatinine Ratio 27.1 H, Glucose 228 H, Calcium 8.9, Troponin I 0.056 H 03/30/19 11:19: Specimen Type ART, Sample Site R Radial, pH 7.21 L, Bicarbonate Actual 38.5 H, POC Total CO2 41, Base Excess 11 H, O2 Saturation 89 L, O2 % 40, ABG pCO2 95.5 H*, ABG pO2 73 L, Baudilio Test POS, Respiration Rate 14, O2 Delivery Device Bi / C PAP, EPAP 6, IPAP 14, Blood Gas Notified Whom ED , Blood Gas Notified Time 1113 03/30/19 13:17: POC Glucose 242 H 03/30/19 16:53: POC Glucose 313 H 03/30/19 21:31: POC Glucose 247 H 03/31/19 03:24: Specimen Type ART, Sample Site L Radial, pH 7.42, Bicarbonate Actual 43.0 H, POC Total CO2 45, Base Excess 18 H, O2 Saturation 94 L, O2 % 50, ABG pCO2 67.1 H*, ABG pO2 72 L, Baudilio Test POS, Respiration Rate 14, O2 Delivery Device Vent, Vent Mode A-C, Tidal Volume 450, POC PEEP 5, Blood Gas Notified Whom HOSP , Blood Gas Notified Time 320 03/31/19 04:05: WBC 9.6, RBC 5.37, Hgb 14.9, Hct 48.6 H, MCV 90.5, MCH 27.7, MCHC 30.7 L, RDW 15.1 H, RDW Differential 49.2 H, Plt Count 351, MPV 10.6, Immature Gran % (Auto) 0.200, Neut % (Auto) 72.3 H, Lymph % (Auto) 15.7 L, Casey % (Auto) 11.5 H, Eos % (Auto) 0.2, Baso % (Auto) 0.1, Absolute Neuts (auto) 7.0, Absolute Lymphs (auto) 1.51, Total Counted Not Reportable 03/31/19 04:05: Sodium 142, Potassium 4.1, Chloride 98, Carbon Dioxide 39.0 H, Anion Gap 5, BUN 13, Creatinine 0.56, Estim Creat Clear Calc 98.22, Est GFR (MDRD) Af Amer 151, Est GFR (MDRD) Non-Af 125, BUN/Creatinine Ratio 23.4 H, Glucose 185 H, Calcium 8.9, Magnesium 1.9, Triglycerides 158 03/31/19 04:05: Total Creatine Kinase 30 03/31/19 05:25: POC Glucose 269 H Current Medications Acetaminophen (Tylenol) 650 mg PO Q6H PRN PRN PRN Reason: Mild Pain (1-3)/Temp > 100.7 F Al Hydroxide/Mg Hydroxide (Mylanta Ii) 30 ml PO Q6H PRN PRN PRN Reason: Gastric Burning Albuterol Sulfate (Ventolin Aerosols) 2.5 mg INHALATION Q2H PRN PRN PRN Reason: Shortness of Breath/Wheezing Albuterol/Ipratropium (Duoneb) 3 ml INHALATION Q4H.RT [place] Last Admin: 03/31/19 06:45 Dose: 3 ml Amlodipine Besylate (Norvasc) 10 mg GT DAILY [facility] Budesonide (Pulmicort Aerosol) 0.5 mg INHALATION BID.RT [facility] Last Admin: 03/30/19 14:37 Dose: 0.5 mg Chlorhexidine Gluconate () 15 ml PO BID [facility] Dextrose (D50w Syringe) 0 gm IV X1 PRN; Protocol PRN Reason: Hypoglycemia Enoxaparin Sodium (Lovenox) 40 mg SC DAILY@1000 [facility] Famotidine (Pepcid) 20 mg GT BID [facility] Glucagon () 1 mg IM .X1 PRN PRN Reason: Hypoglycemia Hydralazine HCl (Apresoline Iv) 10 mg IV Q4H PRN PRN PRN Reason: Sbp Greater Than 160 Hydrochlorothiazide (Hctz) 25 mg GT DAILY [facility] Azithromycin 500 mg/ Dextrose 255 mls @ 250 mls/hr IV Q24 [facility] Stop: 04/01/19 11:02 Last Admin: 03/30/19 14:10 Dose: 250 mls/hr Fentanyl () 100 mls @ 5 mls/hr IV .Q20H [facility] Last Admin: 03/31/19 02:32 Dose: 5 mls/hr Propofol (Diprivan) 1,000 mg in 100 mls @ 6.42 mls/hr CONT INF .Q12H [facility] Last Admin: 03/31/19 07:05 Dose: 6.42 mls/hr Sodium Chloride () 250 mls @ 15 mls/hr IV .[id number] PRN PRN Reason: SALINE FLUSH Dexmedetomidine HCl 1,000 mcg/ (Sodium Chloride) 250 mls @ 13.38 mls/hr CONT INF .[id number] [facility] Insulin Glargine (Lantus (Bkc)) 35 units SC DAILY [facility] Insulin Human Lispro (Humalog Kwikpen (Bkc)) 0 unit SC Q6 [facility]; Protocol Last Admin: 03/31/19 05:27 Dose: 6 units Lisinopril (Zestril) 40 mg GT DAILY [facility] Magnesium Hydroxide (Milk Of Magnesia) 30 ml PO DAILY PRN PRN PRN Reason: Constipation Ondansetron HCl (Zofran) 4 mg IV Q8H PRN PRN PRN Reason: NAUSEA/VOMITING Sodium Chloride () 5 - 15 ml IV UD PRN PRN Reason: SALINE FLUSH Last Admin: 03/31/19 05:34 Dose: 10 ml Throat Lozenges (Cepacol Sore Throat Lozenge) 1 lozenge MUCOUS MEM Q2H PRN PRN PRN Reason: Sore throat or cough Medical Necessity - Tobacco Use Smoking Status: Former smoker Assessment/Plan All Active Problems (Last Reviewed 03/30/19 @ 11:18 by Melquiades Cheng MD) Acute respiratory failure with hypoxia (Acute) Elevated troponin (Acute) Acute respiratory failure with hypoxia and hypercapnia (Acute) History of tubal ligation (Resolved) History of section (Resolved) COPD with acute exacerbation (Acute) Hypertensive urgency (Ruled-out) Otitis media (Ruled-out) Tobacco abuse (Resolved) Patient is a 48-year-old lady with history of advanced COPD and asthma discharged from the hospital a week prior to her readmission presented with progressive shortness of breath 1. Acute hypercapnic and hypoxic respiratory failure secondary to COPD with acute exacerbation patient has been admitted to monitored bed for management of patient underlying etiology. Patient in addition was placed on noninvasive ventilation nasal CPAP with consultation placed to pulmonary medicine. Patient declined to wear the CPAP her condition deteriorated during the night resulting in patient being intubated and transferred to the intensive care unit. 2. COPD with acute exacerbation; treatment as discussed above 3. Chronically elevated troponin 4. Chronic hypoxic respiratory failure on home oxygen 5. Essential hypertension-blood pressure controlled, home medications continued with dose adjustment as needed 6. Chronic back pain 7. Morbid obesity with BMI of 42: Weight loss advised 8. DVT prophylaxis Lovenox Code Visit Inpatient E&M: 60227 Subs Hosp L3
[2019-03-31] MEDS: Chlorhexidine 15 ML PO (08:25)
[2019-03-31] MEDS: Enoxaparin 40 MG/0.4 ML Syringe SC (08:26)
[2019-03-31] MEDS: hydroCHLOROthiazide 25 MG Tablet GT (08:33)
[2019-03-31] MEDS: Famotidine 20 MG Tablet GT (08:33)
[2019-03-31] MEDS: Budesonide Respules 0.5 MG/2 ML AMPUL.NEB. INHALATION ×2 (09:00→19:29)
--- NOTE | 2019-03-31 10:32 | CASEMGMT ---
[facility] NOTE: Noted pt has an appt with Danni Latham @ [facility] tomorrow/. Call placed to the office and they were notified pt is currently in hospital. Appt cancelled. Betina CUELLAR RN CM
[2019-03-31] MEDS: Lisinopril 40 MG Tablet GT (10:47)
[2019-03-31] MEDS: amLODIPine 10 MG Tablet GT (10:47)
[2019-03-31] MEDS: Gabapentin 600 MG Tablet GT (12:20)
[2019-03-31 12:31] LABS: Bedside Glucose 299 mg/dL (70-110)
[2019-03-31 18:21] LABS: Bedside Glucose 151 mg/dL (70-110)
--- NOTE | 2019-03-31 19:21 | NURSING ---
1645 I began to wean the patients propofol off at 1400 and it was weaned off by 1440. The pt was still on 1.2mcg/kg/hr of precedex and 100mcg/hr of fentanyl. RASS sustained at -1. Attempted to turn pt at 1645, her RASS went from a (-1) to a (+2)-(+3). The pt sat upright in bed and self extubated with an RN and PHOTOENGRAVING HELPER at bedside trying to prevent pt from pulling tube out.
--- NOTE | 2019-03-31 20:18 | NURSING ---
Pt was animate about leaving hospital tonight due to boyfriend not being here and states, I don't want to alone. Discussed, at length the need for pt to have O2. Pt is able to answer orientation questions correctly, but states she thinks she's here for surgery. Nurse clarified the reason pt is here is due to her inability to maintain her oxygen level. Boyfriend has arrived to room and is speaking with pt at this time. Pt now states she will stay overnight, until able to speak to physician in the a.m. Pt is in agreement to stay tonight.
[2019-03-31 23:35] LABS: Bedside Glucose 70 mg/dL (70-110)
[2019-04-01] VITALS (25 sets, daily range): BP systolic 115–160; BP diastolic 64–122; PULSE 80–107; RESP 12–23; TEMP 36.7–36.9; O2SAT 90–100
[2019-04-01 02:46] LABS: Bedside Glucose 60 mg/dL (70-110)
[2019-04-01] MEDS: Dextrose 50%-Water 25 GM/50 ML DISP.SYRIN IV (02:46)
[2019-04-01] MEDS: 0.9% NaCl Peripheral Flush Adult/Peds IV ×2 (02:47→11:02)
--- NOTE | 2019-04-01 02:58 | NURSING ---
Blood sugar tested due to borderline result at midnight, and pt NPO status. Found to be 60mg/dl. Pt was able to respond to questions appropriately. Administered D50 12.5g.
[2019-04-01 03:16] LABS: Bedside Glucose 121 mg/dL (70-110)
[2019-04-01] MEDS: Ipratropium/Albuterol Sulfate 3 ML AMPUL.NEB INHALATION ×6 (03:24→22:16)
[2019-04-01 04:11] LABS: Bedside Glucose 89 mg/dL (70-110)
[2019-04-01 04:41] LABS: Absolute Lymphocyte Count 2.92 X10^3/ul (0.83-4.51); Absolute Neutrophil Count 7.5 X10^3/uL (2.0-7.7); Basophil# 0.04 X10^3/uL; Basophil% 0.3 % (0-1); Eosinophil# 0.06 X10^3/uL; Eosinophils% 0.5 % (0-5); Hematocrit 51.4 % (37-47); Hemoglobin 15.7 g/dl (12.0-15.0); Lymphocyte # 2.92 X10^3/ul (4.0); Lymphocyte % 24.8 % (19-41); Mean Corp Hgb Conc 30.5 g/gl (32-36); Mean Corpuscular Hgb 27.2 pg (27.0-32.0); Mean Corpuscular Volume 89.1 fL (81-99); Mean Platelet Vol. 10.7 fl (6.2-12.0); Monocyte# 1.25 X10^3/uL; Monocyte% 10.6 % (0-10); Neutrophil # 7.47 X10^3/uL (2.7-7.7); Neutrophil % 63.5 % (47-70); Platelet Count 374 K/mm3 (150-450); RBC Distribution Width CV 15.5 % (11.6-14.6); RBC Distribution Width SD 50.7 fl (35.1-43.9); Red Blood Count 5.77 M/mm3 (4.2-5.4); White Blood Count 11.8 K/mm3 (4.4-11.0)
[2019-04-01 04:42] LABS: POSITIVE COUNT NO; POSITIVE DIFFERENTIAL NO; POSITIVE MORPHOLOGY NO
[2019-04-01 04:48] LABS: Anion Gap 5 (5-15); BUN 14 mg/dL (7-18); BUN/Creat Ratio 26.6 RATIO (10-20); Calcium,Total 8.8 mg/dL (8.5-10.1); Chloride 99 mmol/L (98-107); Creatinine, Serum 0.53 mg/dL (0.55-1.02); EST Glomerular Filtration Rate 132 mL/min (>60); Est Glom Filt Rate - Afr Amer 160 mL/min (>60); Estimated Creatinine Clearance 103.78 ml/min; Glucose 79 mg/dL (74-106); Potassium 3.3 mmol/L (3.5-5.1); Sodium Level 142 mmol/L (136-145)
[2019-04-01 05:16] LABS: Bedside Glucose 79 mg/dL (70-110)
--- NOTE | 2019-04-01 06:56 | PCM.PN.INT ---
Subjective: The patient was seen and examined at the bedside this morning. Events from the last 24 hours have been reviewed. The patient is currently afebrile, hemodynamically stable and maintaining appropriate oxygen saturations on 4 L/min via nasal cannula. I was contacted last evening by the nursing staff who informed me that the patient self extubated. Following self extubation, the patient reportedly was insisting to be allowed to leave the hospital. Nevertheless, she later decided against leaving AGAINST MEDICAL ADVICE. However, she has been intermittently refusing medical therapy, including BiPAP overnight. Potassium is low this morning at 3.3. Bicarbonate remains elevated at 38. The patient's main concern this morning is for that of being allowed to eat. Objective: The patient's most recent lab work, culture data and imaging studies have all been personally reviewed. Surface echocardiogram revealed moderate to severe concentric LVH with an ejection fraction of 65% and evidence of diastolic dysfunction. Right ventricular systolic pressure was estimated to be 45 mmHg. Respiratory viral panel was negative. Blood cultures have revealed no growth to date. Sputum culture is pending. CTA chest completed on March 31 revealed no evidence for pulmonary embolism. There was evidence of right basilar atelectasis. General: Alert, No apparent distress HEENT: Atraumatic, PERRLA, Normocephalic Oral: No Gingival or Mucosal Lesions/ Ulcerations Neck: Supple, No Nodes, Trachea Midline Lungs: Diminished, Wheezes Cardiovascular: Regular rate, Regular Rhythm, Normal S1, Normal S2, No murmurs Abdomen: Bowel Sounds Present, Soft, Non Tender, Obese Extremities: No clubbing, No cyanosis, No edema Skin: No breakdown Musculoskeletal: No Muscle Wasting Lymphatic: No Cervical, Supraclavicular, or Inguinal Adenopathy Neurological: - - No focal neurological deficits. Psych/Mental Status: Restless Vital Signs Temp Pulse Resp BP Pulse Ox 98.4 F 99 21 H 115/90 H 93 04/01/19 04:00 04/01/19 06:00 04/01/19 06:00 04/01/19 06:00 04/01/19 06:00 Oxygen Flow Rate (L/min) 4 Oxygen Delivery Method Nasal Cannula Weight: 224 lb 6.889 oz Body Mass Index (BMI) 43.1 Intake and Output for Last 24 Hours 03/30/19 03/31/19 04/01/19 23:59 23:59 23:59 Intake Total 1240 / 1240 1696.5 / 1696.5 Output Total 1700 / 1700 4125 / 4125 350 / 350 Balance -460 / -460 -2428.5 / -2428.5 -350 / -350 Labs (Last 48 Hours) 03/30/19 03/30/19 03/30/19 09:03 09:03 09:03 WBC 12.2 H RBC 5.28 Hgb 15.1 H Hct 49.1 H MCV 93.0 MCH 28.6 MCHC 30.8 L RDW 15.1 H RDW Differential 51.1 H Plt Count 379 MPV 10.8 Immature Gran % (Auto) 0.200 Neut % (Auto) 71.3 H Lymph % (Auto) 17.7 L Leslie % (Auto) 9.7 Eos % (Auto) 0.7 Baso % (Auto) 0.4 Absolute Neuts (auto) 8.7 H Absolute Lymphs (auto) 2.16 Total Counted Not Reportable Specimen Type Sample Site pH Bicarbonate Actual POC Total CO2 Base Excess O2 Saturation O2 % ABG pCO2 ABG pO2 Baudilio Test Respiration Rate O2 Delivery Device Liter Flow Vent Mode Tidal Volume POC PEEP EPAP IPAP Blood Gas Notified Whom Blood Gas Notified Time Sodium Cancelled Potassium Cancelled Chloride Cancelled Carbon Dioxide Cancelled Anion Gap Cancelled BUN Cancelled Creatinine Cancelled Estim Creat Clear Calc Cancelled Est GFR (MDRD) Af Amer Cancelled Est GFR (MDRD) Non-Af Cancelled BUN/Creatinine Ratio Cancelled Glucose Cancelled Lactic Acid 0.9 Calcium Cancelled Magnesium Total Creatine Kinase Troponin I Cancelled B-Natriuretic Peptide Triglycerides POC Glucose 03/30/19 03/30/19 03/30/19 09:03 09:46 10:05 WBC RBC Hgb Hct MCV MCH MCHC RDW RDW Differential Plt Count MPV Immature Gran % (Auto) Neut % (Auto) Lymph % (Auto) Leslie % (Auto) Eos % (Auto) Baso % (Auto) Absolute Neuts (auto) Absolute Lymphs (auto) Total Counted Specimen Type ART Sample Site R Radial pH 7.23 L Bicarbonate Actual 39.2 H POC Total CO2 42 Base Excess 12 H O2 Saturation 93 L O2 % ABG pCO2 94.9 H* ABG pO2 85 Baudilio Test POS Respiration Rate O2 Delivery Device Nasal Can Liter Flow 6.0 Vent Mode Tidal Volume POC PEEP EPAP IPAP Blood Gas Notified Whom ED Blood Gas Notified Time 939 Sodium 134 L Potassium 4.9 Chloride 96 L Carbon Dioxide 41.0 H Anion Gap -3 L BUN 16 Creatinine 0.59 Estim Creat Clear Calc 93.23 Est GFR (MDRD) Af Amer 140 Est GFR (MDRD) Non-Af 116 BUN/Creatinine Ratio 27.1 H Glucose 228 H Lactic Acid Calcium 8.9 Magnesium Total Creatine Kinase Troponin I 0.056 H B-Natriuretic Peptide 172.8 H Triglycerides POC Glucose 03/30/19 03/30/19 03/30/19 11:19 13:17 16:53 WBC RBC Hgb Hct MCV MCH MCHC RDW RDW Differential Plt Count MPV Immature Gran % (Auto) Neut % (Auto) Lymph % (Auto) Leslie % (Auto) Eos % (Auto) Baso % (Auto) Absolute Neuts (auto) Absolute Lymphs (auto) Total Counted Specimen Type ART Sample Site R Radial pH 7.21 L Bicarbonate Actual 38.5 H POC Total CO2 41 Base Excess 11 H O2 Saturation 89 L O2 % 40 ABG pCO2 95.5 H* ABG pO2 73 L Baudilio Test POS Respiration Rate 14 O2 Delivery Device Bi / C PAP Liter Flow Vent Mode Tidal Volume POC PEEP EPAP 6 IPAP 14 Blood Gas Notified Whom ED Blood Gas Notified Time 1113 Sodium Potassium Chloride Carbon Dioxide Anion Gap BUN Creatinine Estim Creat Clear Calc Est GFR (MDRD) Af Amer Est GFR (MDRD) Non-Af BUN/Creatinine Ratio Glucose Lactic Acid Calcium Magnesium Total Creatine Kinase Troponin I B-Natriuretic Peptide Triglycerides POC Glucose 242 H 313 H 03/30/19 03/31/19 03/31/19 21:31 03:24 04:05 WBC 9.6 RBC 5.37 Hgb 14.9 Hct 48.6 H MCV 90.5 MCH 27.7 MCHC 30.7 L RDW 15.1 H RDW Differential 49.2 H Plt Count 351 MPV 10.6 Immature Gran % (Auto) 0.200 Neut % (Auto) 72.3 H Lymph % (Auto) 15.7 L Leslie % (Auto) 11.5 H Eos % (Auto) 0.2 Baso % (Auto) 0.1 Absolute Neuts (auto) 7.0 Absolute Lymphs (auto) 1.51 Total Counted Not Reportable Specimen Type ART Sample Site L Radial pH 7.42 Bicarbonate Actual 43.0 H POC Total CO2 45 Base Excess 18 H O2 Saturation 94 L O2 % 50 ABG pCO2 67.1 H* ABG pO2 72 L Baudilio Test POS Respiration Rate 14 O2 Delivery Device Vent Liter Flow Vent Mode A-C Tidal Volume 450 POC PEEP 5 EPAP IPAP Blood Gas Notified Whom [facility] Blood Gas Notified Time 320 Sodium Potassium Chloride Carbon Dioxide Anion Gap BUN Creatinine Estim Creat Clear Calc Est GFR (MDRD) Af Amer Est GFR (MDRD) Non-Af BUN/Creatinine Ratio Glucose Lactic Acid Calcium Magnesium Total Creatine Kinase Troponin I B-Natriuretic Peptide Triglycerides POC Glucose 247 H 03/31/19 03/31/19 03/31/19 04:05 04:05 05:25 WBC RBC Hgb Hct MCV MCH MCHC RDW RDW Differential Plt Count MPV Immature Gran % (Auto) Neut % (Auto) Lymph % (Auto) Leslie % (Auto) Eos % (Auto) Baso % (Auto) Absolute Neuts (auto) Absolute Lymphs (auto) Total Counted Specimen Type Sample Site pH Bicarbonate Actual POC Total CO2 Base Excess O2 Saturation O2 % ABG pCO2 ABG pO2 Baudilio Test Respiration Rate O2 Delivery Device Liter Flow Vent Mode Tidal Volume POC PEEP EPAP IPAP Blood Gas Notified Whom Blood Gas Notified Time Sodium 142 Potassium 4.1 Chloride 98 Carbon Dioxide 39.0 H Anion Gap 5 BUN 13 Creatinine 0.56 Estim Creat Clear Calc 98.22 Est GFR (MDRD) Af Amer 151 Est GFR (MDRD) Non-Af 125 BUN/Creatinine Ratio 23.4 H Glucose 185 H Lactic Acid Calcium 8.9 Magnesium 1.9 Total Creatine Kinase 30 Troponin I B-Natriuretic Peptide Triglycerides 158 POC Glucose 269 H 03/31/19 03/31/19 03/31/19 12:17 18:16 23:31 WBC RBC Hgb Hct MCV MCH MCHC RDW RDW Differential Plt Count MPV Immature Gran % (Auto) Neut % (Auto) Lymph % (Auto) Leslie % (Auto) Eos % (Auto) Baso % (Auto) Absolute Neuts (auto) Absolute Lymphs (auto) Total Counted Specimen Type Sample Site pH Bicarbonate Actual POC Total CO2 Base Excess O2 Saturation O2 % ABG pCO2 ABG pO2 Baudilio Test Respiration Rate O2 Delivery Device Liter Flow Vent Mode Tidal Volume POC PEEP EPAP IPAP Blood Gas Notified Whom Blood Gas Notified Time Sodium Potassium Chloride Carbon Dioxide Anion Gap BUN Creatinine Estim Creat Clear Calc Est GFR (MDRD) Af Amer Est GFR (MDRD) Non-Af BUN/Creatinine Ratio Glucose Lactic Acid Calcium Magnesium Total Creatine Kinase Troponin I B-Natriuretic Peptide Triglycerides POC Glucose 299 H 151 H 70 04/01/19 04/01/19 04/01/19 02:44 03:11 04:06 WBC RBC Hgb Hct MCV MCH MCHC RDW RDW Differential Plt Count MPV Immature Gran % (Auto) Neut % (Auto) Lymph % (Auto) Leslie % (Auto) Eos % (Auto) Baso % (Auto) Absolute Neuts (auto) Absolute Lymphs (auto) Total Counted Specimen Type Sample Site pH Bicarbonate Actual POC Total CO2 Base Excess O2 Saturation O2 % ABG pCO2 ABG pO2 Baudilio Test Respiration Rate O2 Delivery Device Liter Flow Vent Mode Tidal Volume POC PEEP EPAP IPAP Blood Gas Notified Whom Blood Gas Notified Time Sodium Potassium Chloride Carbon Dioxide Anion Gap BUN Creatinine Estim Creat Clear Calc Est GFR (MDRD) Af Amer Est GFR (MDRD) Non-Af BUN/Creatinine Ratio Glucose Lactic Acid Calcium Magnesium Total Creatine Kinase Troponin I B-Natriuretic Peptide Triglycerides POC Glucose 60 L 121 H 89 04/01/19 04/01/19 04/01/19 04:15 04:15 05:07 WBC 11.8 H RBC 5.77 H Hgb 15.7 H Hct 51.4 H MCV 89.1 MCH 27.2 MCHC 30.5 L RDW 15.5 H RDW Differential 50.7 H Plt Count 374 MPV 10.7 Immature Gran % (Auto) 0.300 Neut % (Auto) 63.5 Lymph % (Auto) 24.8 Leslie % (Auto) 10.6 H Eos % (Auto) 0.5 Baso % (Auto) 0.3 Absolute Neuts (auto) 7.5 Absolute Lymphs (auto) 2.92 Total Counted Not Reportable Specimen Type Sample Site pH Bicarbonate Actual POC Total CO2 Base Excess O2 Saturation O2 % ABG pCO2 ABG pO2 Baudilio Test Respiration Rate O2 Delivery Device Liter Flow Vent Mode Tidal Volume POC PEEP EPAP IPAP Blood Gas Notified Whom Blood Gas Notified Time Sodium 142 Potassium 3.3 L Chloride 99 Carbon Dioxide 38.0 H Anion Gap 5 BUN 14 Creatinine 0.53 L Estim Creat Clear Calc 103.78 Est GFR (MDRD) Af Amer 160 Est GFR (MDRD) Non-Af 132 BUN/Creatinine Ratio 26.6 H Glucose 79 Lactic Acid Calcium 8.8 Magnesium Total Creatine Kinase Troponin I B-Natriuretic Peptide Triglycerides POC Glucose 79 Microbiology 03/31/19 07:50 Mucosa - Nasopharyngeal Respiratory Panel (PCR) - Final 03/31/19 02:40 Sputum, Induced/Lukens Gram Stain - Final Clinical Impression(s) from Imaging Studies Chest X-Ray 03/30/19 08:55 IMPRESSION: Mild degree of increased markings at the right lung base suggestive of atelectasis and/or early infiltrate. Follow-up is recommended. Electronically Signed: Luis Mistry, at 9:10 EDT , Service support , Chest X-Ray 03/31/19 02:40 IMPRESSION: 1. Appropriate positioning of supportive tubes. 2. No acute pulmonary infiltrate Electronically Signed: Shaq Bassett MD at 4:17 EDT Tel , Service support , KUB X-Ray 03/31/19 02:50 IMPRESSION: Orogastric tube extending to the lower gastric body lumen. Electronically Signed: Shaq Bassett MD at 3:17 EDT Tel , Service support , Chest CTA 03/31/19 06:57 IMPRESSION: There is no evidence of pulmonary embolism. Mild increased markings at the right lung base suggestive of atelectasis. Mild scarring at the left lung base. Electronically Signed: Luis Mistry, at 11:10 EDT , Service support , Medical Necessity - Tobacco Use Smoking Status: Former smoker Assessment/Plan All Active Problems (Last Reviewed 03/30/19 @ 11:18 by Melquiades Cheng MD) Acute respiratory failure with hypoxia (Acute) Elevated troponin (Acute) Acute respiratory failure with hypoxia and hypercapnia (Acute) History of tubal ligation (Resolved) History of section (Resolved) COPD with acute exacerbation (Acute) Hypertensive urgency (Ruled-out) Otitis media (Ruled-out) Tobacco abuse (Resolved) RECOMMENDATIONS: 1. Wean supplemental oxygen to maintain saturations 88 to 92%. 2. Continue scheduled bronchodilators and budesonide. 3. Continue Neurontin at reduced dose. 4. Potassium repletion as ordered. 5. Bedside swallow evaluation and advance diet. 6. Recommend use of nocturnal PAP therapy. 7. Continue empiric antimicrobial coverage. IMPRESSIONS: 1. Acute on chronic combined respiratory failure The patient has a self-reported history of both COPD and asthma along with a baseline 4 L/min supplemental oxygen requirement. The patient is also a chronic CO2 retainer. Although she was seen initially in the pulmonary medicine clinic, the patient never followed up, nor completed any of her testing. She does have an extensive smoking history and continues to smoke, as recently as 4 days prior to her hospital admission. While the patient initially responded appropriately to the use of bronchodilators and noninvasive positive pressure ventilation, she later became noncompliant with medical therapy and had to be intubated as a consequence of this. The patient then went on to self extubate on the evening of March 31. She has continued to refuse to utilize BiPAP therapy since that time. CTA chest was obtained and revealed no evidence for pulmonary embolism. For now, would plan to continue scheduled bronchodilators and budesonide. Continue empiric antibiotics as ordered. 2. Heart failure with preserved ejection fraction/pulmonary hypertension/troponin elevation Troponin elevation likely secondary to hypoxemia. 3. Clinical concern for underlying sleep disordered breathing The patient needs to follow-up with the pulmonary medicine clinic so that a diagnostic polysomnogram can be completed. In the interim, would recommend empiric utilization of AVAPS with naps and nightly. 4. Continuous tobacco dependency/diabetes mellitus/morbid obesity/history of medical noncompliance/chronic pain syndrome Complicates care, management, recovery and prognosis. Continue home antihypertensive regimen. Nicotine replacement therapy can be offered to the patient while she is admitted to the hospital. This note was generated with [employer] software. It may contain incorrect words, spelling, and punctuation that were not noted in checking the note before signing. Code Visit Inpatient E&M: 87387 Subs Hosp L3
--- NOTE | 2019-04-01 07:00 | PN_ITS ---
Subjective: The patient was seen and examined at the bedside this morning. Events from the last 24 hours have been reviewed. The patient is currently afebrile, hemodynamically stable and maintaining appropriate oxygen saturations on 4 L/min via nasal cannula. I was contacted last evening by the nursing staff who informed me that the patient self extubated. Following self extubation, the patient reportedly was insisting to be allowed to leave the hospital. Nevertheless, she later decided against leaving AGAINST MEDICAL ADVICE. However, she has been intermittently refusing medical therapy, including BiPAP overnight. Potassium is low this morning at 3.3. Bicarbonate remains elevated at 38. The patient's main concern this morning is for that of being allowed to eat. Objective: The patient's most recent lab work, culture data and imaging studies have all been personally reviewed. Surface echocardiogram revealed moderate to severe concentric LVH with an ejection fraction of 65% and evidence of diastolic dysfunction. Right ventricular systolic pressure was estimated to be 45 mmHg. Respiratory viral panel was negative. Blood cultures have revealed no growth to date. Sputum culture is pending. CTA chest completed on March 31 revealed no evidence for pulmonary embolism. There was evidence of right basilar atele ctasis. General: Alert, No apparent distress HEENT: Atraumatic, PERRLA, Normocephalic Oral: No Gingival or Mucosal Lesions/ Ulcerations Neck: Supple, No Nodes, Trachea Midline Lungs: Diminished, Wheezes Cardiovascular: Regular rate, Regular Rhythm, Normal S1, Normal S2, No murmurs Abdomen: Bowel Sounds Present, Soft, Non Tender, Obese Extremities: No clubbing, No cyanosis, No edema Skin: No breakdown Musculoskeletal: No Muscle Wasting Lymphatic: No Cervical, Supraclavicular, or Inguinal Adenopathy Neurological: - - No focal neurological deficits. Psych/Mental Status: Restless Vital Signs Temp Pulse Resp BP Pulse Ox 98.4 F 99 21 H 115/90 H 93 04/01/19 04:00 04/01/19 06:00 04/01/19 06:00 04/01/19 06:00 04/01/19 06:00 Oxygen Flow Rate (L/min) 4 Oxygen Delivery Method Nasal Cannula Weight: 224 lb 6.889 oz Body Mass Index (BMI) 43.1 Intake and Output for Last 24 Hours 03/30/19 03/31/19 04/01/19 23:59 23:59 23:59 Intake Total 1240 / 1240 1696.5 / 1696.5 Output Total 1700 / 1700 4125 / 4125 350 / 350 Balance -460 / -460 -2428.5 / -2428.5 -350 / -350 Labs (Last 48 Hours) 03/30/19 03/30/19 03/30/19 09:03 09:03 09:03 WBC 12.2 H RBC 5.28 Hgb 15.1 H Hct 49.1 H MCV 93.0 MCH 28.6 MCHC 30.8 L RDW 15.1 H RDW Differential 51.1 H Plt Count 379 MPV 10.8 Immature Gran % (Auto) 0.200 Neut % (Auto) 71.3 H Lymph % (Auto) 17.7 L [place] % (Auto) 9.7 Eos % (Auto) 0.7 Baso % (Auto) 0.4 Absolute Neuts (auto) 8.7 H Absolute Lymphs (auto) 2.16 Total Counted Not Reportable Specimen Type Sample Site pH Bicarbonate Actual POC Total CO2 Base Excess O2 Saturation O2 % ABG pCO2 ABG pO2 Baudilio Test Respiration Rate O2 Delivery Device Liter Flow Vent Mode Tidal Volume POC PEEP EPAP IPAP Blood Gas Notified Whom Blood Gas Notified Time Sodium Cancelled Potassium Cancelled Chloride Cancelled Carbon Dioxide Cancelled Anion Gap Cancelled BUN Cancelled Creatinine Cancelled Estim Creat Clear Calc Cancelled Est GFR (MDRD) Af Amer Cancelled Est GFR (MDRD) Non-Af Cancelled BUN/Creatinine Ratio Cancelled Glucose Cancelled Lactic Acid 0.9 Calcium Cancelled Magnesium Total Creatine Kinase Troponin I Cancelled B-Natriuretic Peptide Triglycerides POC Glucose 03/30/19 03/30/19 03/30/19 09:03 09:46 10:05 WBC RBC Hgb Hct MCV MCH MCHC RDW RDW Differential Plt Count MPV Immature Gran % (Auto) Neut % (Auto) Lymph % (Auto) [place] % (Auto) Eos % (Auto) Baso % (Auto) Absolute Neuts (auto) Absolute Lymphs (auto) Total Counted Specimen Type ART Sample Site R Radial pH 7.23 L Bicarbonate Actual 39.2 H POC Total CO2 42 Base Excess 12 H O2 Saturation 93 L O2 % ABG pCO2 94.9 H* ABG pO2 85 Baudilio Test POS Respiration Rate O2 Delivery Device Nasal Can Liter Flow 6.0 Vent Mode Tidal Volume POC PEEP EPAP IPAP Blood Gas Notified Whom ED Blood Gas Notified Time 939 Sodium 134 L Potassium 4.9 Chloride 96 L Carbon Dioxide 41.0 H Anion Gap -3 L BUN 16 Creatinine 0.59 Estim Creat Clear Calc 93.23 Est GFR (MDRD) Af Amer 140 Est GFR (MDRD) Non-Af 116 BUN/Creatinine Ratio 27.1 H Glucose 228 H Lactic Acid Calcium 8.9 Magnesium Total Creatine Kinase Troponin I 0.056 H B-Natriuretic Peptide 172.8 H Triglycerides POC Glucose 03/30/19 03/30/19 03/30/19 11:19 13:17 16:53 WBC RBC Hgb Hct MCV MCH MCHC RDW RDW Differential Plt Count MPV Immature Gran % (Auto) Neut % (Auto) Lymph % (Auto) [place] % (Auto) Eos % (Auto) Baso % (Auto) Absolute Neuts (auto) Absolute Lymphs (auto) Total Counted Specimen Type ART Sample Site R Radial pH 7.21 L Bicarbonate Actual 38.5 H POC Total CO2 41 Base Excess 11 H O2 Saturation 89 L O2 % 40 ABG pCO2 95.5 H* ABG pO2 73 L Baudilio Test POS Respiration Rate 14 O2 Delivery Device Bi / C PAP Liter Flow Vent Mode Tidal Volume POC PEEP EPAP 6 IPAP 14 Blood Gas Notified Whom ED Blood Gas Notified Time 1113 Sodium Potassium Chloride Carbon Dioxide Anion Gap BUN Creatinine Estim Creat Clear Calc Est GFR (MDRD) Af Amer Est GFR (MDRD) Non-Af BUN/Creatinine Ratio Glucose Lactic Acid Calcium Magnesium Total Creatine Kinase Troponin I B-Natriuretic Peptide Triglycerides POC Glucose 242 H 313 H 03/30/19 03/31/19 03/31/19 21:31 03:24 04:05 WBC 9.6 RBC 5.37 Hgb 14.9 Hct 48.6 H MCV 90.5 MCH 27.7 MCHC 30.7 L RDW 15.1 H RDW Differential 49.2 H Plt Count 351 MPV 10.6 Immature Gran % (Auto) 0.200 Neut % (Auto) 72.3 H Lymph % (Auto) 15.7 L [place] % (Auto) 11.5 H Eos % (Auto) 0.2 Baso % (Auto) 0.1 Absolute Neuts (auto) 7.0 Absolute Lymphs (auto) 1.51 Total Counted Not Reportable Specimen Type ART Sample Site L Radial pH 7.42 Bicarbonate Actual 43.0 H POC Total CO2 45 Base Excess 18 H O2 Saturation 94 L O2 % 50 ABG pCO2 67.1 H* ABG pO2 72 L Baudilio Test POS Respiration Rate 14 O2 Delivery Device Vent Liter Flow Vent Mode A-C Tidal Volume 450 POC PEEP 5 EPAP IPAP Blood Gas Notified Whom [facility] Blood Gas Notified Time 320 Sodium Potassium Chloride Carbon Dioxide Anion Gap BUN Creatinine Estim Creat Clear Calc Est GFR (MDRD) Af Amer Est GFR (MDRD) Non-Af BUN/Creatinine Ratio Glucose Lactic Acid Calcium Magnesium Total Creatine Kinase Troponin I B-Natriuretic Peptide Triglycerides POC Glucose 247 H 03/31/19 03/31/19 03/31/19 04:05 04:05 05:25 WBC RBC Hgb Hct MCV MCH MCHC RDW RDW Differential Plt Count MPV Immature Gran % (Auto) Neut % (Auto) Lymph % (Auto) [place] % (Auto) Eos % (Auto) Baso % (Auto) Absolute Neuts (auto) Absolute Lymphs (auto) Total Counted Specimen Type Sample Site pH Bicarbonate Actual POC Total CO2 Base Excess O2 Saturation O2 % ABG pCO2 ABG pO2 Baudilio Test Respiration Rate O2 Delivery Device Liter Flow Vent Mode Tidal Volume POC PEEP EPAP IPAP Blood Gas Notified Whom Blood Gas Notified Time Sodium 142 Potassium 4.1 Chloride 98 Carbon Dioxide 39.0 H Anion Gap 5 BUN 13 Creatinine 0.56 Estim Creat Clear Calc 98.22 Est GFR (MDRD) Af Amer 151 Est GFR (MDRD) Non-Af 125 BUN/Creatinine Ratio 23.4 H Glucose 185 H Lactic Acid Calcium 8.9 Magnesium 1.9 Total Creatine Kinase 30 Troponin I B-Natriuretic Peptide Triglycerides 158 POC Glucose 269 H 03/31/19 03/31/19 03/31/19 12:17 18:16 23:31 WBC RBC Hgb Hct MCV MCH MCHC RDW RDW Differential Plt Count MPV Immature Gran % (Auto) Neut % (Auto) Lymph % (Auto) [place] % (Auto) Eos % (Auto) Baso % (Auto) Absolute Neuts (auto) Absolute Lymphs (auto) Total Counted Specimen Type Sample Site pH Bicarbonate Actual POC Total CO2 Base Excess O2 Saturation O2 % ABG pCO2 ABG pO2 Baudilio Test Respiration Rate O2 Delivery Device Liter Flow Vent Mode Tidal Volume POC PEEP EPAP IPAP Blood Gas Notified Whom Blood Gas Notified Time Sodium Potassium Chloride Carbon Dioxide Anion Gap BUN Creatinine Estim Creat Clear Calc Est GFR (MDRD) Af Amer Est GFR (MDRD) Non-Af BUN/Creatinine Ratio Glucose Lactic Acid Calcium Magnesium Total Creatine Kinase Troponin I B-Natriuretic Peptide Triglycerides POC Glucose 299 H 151 H 70 04/01/19 04/01/19 04/01/19 02:44 03:11 04:06 WBC RBC Hgb Hct MCV MCH MCHC RDW RDW Differential Plt Count MPV Immature Gran % (Auto) Neut % (Auto) Lymph % (Auto) [place] % (Auto) Eos % (Auto) Baso % (Auto) Absolute Neuts (auto) Absolute Lymphs (auto) Total Counted Specimen Type Sample Site pH Bicarbonate Actual POC Total CO2 Base Excess O2 Saturation O2 % ABG pCO2 ABG pO2 Baudilio Test Respiration Rate O2 Delivery Device Liter Flow Vent Mode Tidal Volume POC PEEP EPAP IPAP Blood Gas Notified Whom Blood Gas Notified Time Sodium Potassium Chloride Carbon Dioxide Anion Gap BUN Creatinine Estim Creat Clear Calc Est GFR (MDRD) Af Amer Est GFR (MDRD) Non-Af BUN/Creatinine Ratio Glucose Lactic Acid Calcium Magnesium Total Creatine Kinase Troponin I B-Natriuretic Peptide Triglycerides POC Glucose 60 L 121 H 89 04/01/19 04/01/19 04/01/19 04:15 04:15 05:07 WBC 11.8 H RBC 5.77 H Hgb 15.7 H Hct 51.4 H MCV 89.1 MCH 27.2 MCHC 30.5 L RDW 15.5 H RDW Differential 50.7 H Plt Count 374 MPV 10.7 Immature Gran % (Auto) 0.300 Neut % (Auto) 63.5 Lymph % (Auto) 24.8 [place] % (Auto) 10.6 H Eos % (Auto) 0.5 Baso % (Auto) 0.3 Absolute Neuts (auto) 7.5 Absolute Lymphs (auto) 2.92 Total Counted Not Reportable Specimen Type Sample Site pH Bicarbonate Actual POC Total CO2 Base Excess O2 Saturation O2 % ABG pCO2 ABG pO2 Baudilio Test Respiration Rate O2 Delivery Device Liter Flow Vent Mode Tidal Volume POC PEEP EPAP IPAP Blood Gas Notified Whom Blood Gas Notified Time Sodium 142 Potassium 3.3 L Chloride 99 Carbon Dioxide 38.0 H Anion Gap 5 BUN 14 Creatinine 0.53 L Estim Creat Clear Calc 103.78 Est GFR (MDRD) Af Amer 160 Est GFR (MDRD) Non-Af 132 BUN/Creatinine Ratio 26.6 H Glucose 79 Lactic Acid Calcium 8.8 Magnesium Total Creatine Kinase Troponin I B-Natriuretic Peptide Triglycerides POC Glucose 79 Microbiology 03/31/19 07:50 Mucosa - Nasopharyngeal Respiratory Panel (PCR) - Final 03/31/19 02:40 Sputum, Induced/Lukens Gram Stain - Final Clinical Impression(s) from Imaging Studies Chest X-Ray 03/30/19 08:55 IMPRESSION: Mild degree of increased markings at the right lung base suggestive of atelectasis and/or early infiltrate. Follow-up is recommended. Electronically Signed: Luis Mistry, at 9:10 EDT , Service support , Chest X-Ray 03/31/19 02:40 IMPRESSION: 1. Appropriate positioning of supportive tubes. 2. No acute pulmonary infiltrate Electronically Signed: Shaq Bassett MD at 4:17 EDT Tel , Service support , KUB X-Ray 03/31/19 02:50 IMPRESSION: Orogastric tube extending to the lower gastric body lumen. Electronically Signed: Shaq Bassett MD at 3:17 EDT Tel , Service support , Chest CTA 03/31/19 06:57 IMPRESSION: There is no evidence of pulmonary embolism. Mild increased markings at the right lung base suggestive of atelectasis. Mild scarring at the left lung base. Electronically Signed: Luis Mistry, at 11:10 EDT , Service support , Medical Necessity - Tobacco Use Smoking Status: Former smoker Assessment/Plan All Active Problems (Last Reviewed 03/30/19 @ 11:18 by Melquiades Cheng MD) Acute respiratory failure with hypoxia (Acute) Elevated troponin (Acute) Acute respiratory failure with hypoxia and hypercapnia (Acute) History of tubal ligation (Resolved) History of section (Resolved) COPD with acute exacerbation (Acute) Hypertensive urgency (Ruled-out) Otitis media (Ruled-out) Tobacco abuse (Resolved) RECOMMENDATIONS: 1. Wean supplemental oxygen to maintain saturations 88 to 92%. 2. Continue scheduled bronchodilators and budesonide. 3. Continue Neurontin at reduced dose. 4. Potassium repletion as ordered. 5. Bedside swallow evaluation and advance diet. 6. Recommend use of nocturnal PAP therapy. 7. Continue empiric antimicrobial coverage. IMPRESSIONS: 1. Acute on chronic combined respiratory failure The patient has a self-reported history of both COPD and asthma along with a baseline 4 L/min supplemental oxygen requirement. The patient is also a chronic CO2 retainer. Although she was seen initially in the pulmonary medicine clinic, the patient never followed up, nor completed any of her testing. She does have an extensive smoking history and continues to smoke, as recently as 4 days prior to her hospital admission. While the patient initially responded appropriately to the use of bronchodilators and noninvasive positive pressure ventilation, she later became noncompliant with medical therapy and had to be intubated as a consequence of this. The patient then went on to self extubate on the evening of March 31. She has continued to refuse to utilize BiPAP therapy since that time. CTA chest was obtained and revealed no evidence for pulmonary embolism. For now, would plan to continue scheduled bronchodilators and budesonide. Continue empiric antibiotics as ordered. 2. Heart failure with preserved ejection fraction/pulmonary hypertension/troponin elevation Troponin elevation likely secondary to hypoxemia. 3. Clinical concern for underlying sleep disordered breathing The patient needs to follow-up with the pulmonary medicine clinic so that a diagnostic polysomnogram can be completed. In the interim, would recommend empiric utilization of AVAPS with naps and nightly. 4. Continuous tobacco dependency/diabetes mellitus/morbid obesity/history of medical noncompliance/chronic pain syndrome Complicates care, management, recovery and prognosis. Continue home antihypertensive regimen. Nicotine replacement therapy can be offered to the patient while she is admitted to the hospital. This note was generated with [employer] software. It may contain incorrect words, spelling, and punctuation that were not noted in checking the note before signing. Code Visit Inpatient E&M: 19443 Subs Hosp L3
[2019-04-01] MEDS: Budesonide Respules 0.5 MG/2 ML AMPUL.NEB. INHALATION ×2 (07:09→18:43)
--- NOTE | 2019-04-01 07:14 | PCM.PN.HOSP ---
Subjective: Patient apparently did self extubate last evening and later threatened to sign out AGAINST MEDICAL ADVICE she however rescinded her decision. Seen this a.m. patient still remains quite lethargic. Physical examination demonstrates significant bronchospasm Objective: GENERAL: Awake but appears drowsy HEENT: Atraumatic; moist oral mucosa EYES; Anicteric, Normal Conjunctiva NECK; supple, normal thyroid, RESPIRATORY: Diminished to auscultation bilaterally, bilateral wheezes CARDIOVASCULAR: Regular S1 S2, GI: soft, non-tender, normoactive bowel sounds, : No Renal angle tenderness; EXTREMITIES: No edema, no clubbing, no cyanosis. MUSCULOSKELETAL: No Joint Tenderness; NEURO: Grossly intact no lateralizing signs SKIN: No Rash PSYCH; flat affect Vitals/I&O's: Vital Signs Temp Pulse Resp BP Pulse Ox 98.4 F 95 23 H 153/122 H 95 04/01/19 04:00 04/01/19 07:10 04/01/19 07:10 04/01/19 07:00 04/01/19 07:10 Oxygen Flow Rate (L/min) 4 Oxygen Delivery Method Nasal Cannula Weight: 101.8 kg Body Mass Index (BMI) 43.1 Intake and Output for Last 24 Hours 03/30/19 03/31/19 04/01/19 23:59 23:59 23:59 Intake Total 1240 / 1240 1696.5 / 1696.5 Output Total 1700 / 1700 4125 / 4125 350 / 350 Balance -460 / -460 -2428.5 / -2428.5 -350 / -350 Microbiology Past 72 Hours 03/31/19 07:50 Mucosa - Nasopharyngeal Respiratory Panel (PCR) - Final 03/31/19 02:40 Sputum, Induced/Lukens Gram Stain - Final Laboratory Results 03/31/19 12:17: POC Glucose 299 H 03/31/19 18:16: POC Glucose 151 H 03/31/19 23:31: POC Glucose 70 04/01/19 02:44: POC Glucose 60 L 04/01/19 03:11: POC Glucose 121 H 04/01/19 04:06: POC Glucose 89 04/01/19 04:15: WBC 11.8 H, RBC 5.77 H, Hgb 15.7 H, Hct 51.4 H, MCV 89.1, MCH 27.2, MCHC 30.5 L, RDW 15.5 H, RDW Differential 50.7 H, Plt Count 374, MPV 10.7, Immature Gran % (Auto) 0.300, Neut % (Auto) 63.5, Lymph % (Auto) 24.8, [place] % (Auto) 10.6 H, Eos % (Auto) 0.5, Baso % (Auto) 0.3, Absolute Neuts (auto) 7.5, Absolute Lymphs (auto) 2.92, Total Counted Not Reportable 04/01/19 04:15: Sodium 142, Potassium 3.3 L, Chloride 99, Carbon Dioxide 38.0 H, Anion Gap 5, BUN 14, Creatinine 0.53 L, Estim Creat Clear Calc 103.78, Est GFR (MDRD) Af Amer 160, Est GFR (MDRD) Non-Af 132, BUN/Creatinine Ratio 26.6 H, Glucose 79, Calcium 8.8 04/01/19 05:07: POC Glucose 79 Current Medications Acetaminophen (Tylenol) 650 mg PO Q6H PRN PRN PRN Reason: Mild Pain (1-3)/Temp > 100.7 F Al Hydroxide/Mg Hydroxide (Mylanta Ii) 30 ml PO Q6H PRN PRN PRN Reason: Gastric Burning Albuterol Sulfate (Ventolin Aerosols) 2.5 mg INHALATION Q2H PRN PRN PRN Reason: Shortness of Breath/Wheezing Albuterol/Ipratropium (Duoneb) 3 ml INHALATION Q4H.RT [facility] Last Admin: 04/01/19 07:08 Dose: 3 ml Amlodipine Besylate (Norvasc) 10 mg GT DAILY [facility] Last Admin: 03/31/19 10:47 Dose: 10 mg Budesonide (Pulmicort Aerosol) 0.5 mg INHALATION BID.RT [facility] Last Admin: 04/01/19 07:09 Dose: 0.5 mg Dextrose (D50w Syringe) 0 gm IV X1 PRN; Protocol PRN Reason: Hypoglycemia Last Admin: 04/01/19 02:46 Dose: 12.5 gm Enoxaparin Sodium (Lovenox) 40 mg SC DAILY@1000 [facility] Last Admin: 03/31/19 08:26 Dose: 40 mg Famotidine (Pepcid) 20 mg GT BID [facility] Last Admin: 03/31/19 21:16 Dose: Not Given Gabapentin (Neurontin) 600 mg GT TIDCM [facility] Last Admin: 03/31/19 18:15 Dose: Not Given Glucagon () 1 mg IM .X1 PRN PRN Reason: Hypoglycemia Hydralazine HCl (Apresoline Iv) 10 mg IV Q4H PRN PRN PRN Reason: Sbp Greater Than 160 Hydrochlorothiazide (Hctz) 25 mg GT DAILY [facility] Last Admin: 03/31/19 08:33 Dose: 25 mg Azithromycin 500 mg/ Dextrose 255 mls @ 250 mls/hr IV Q24 [facility] Stop: 04/01/19 11:02 Last Admin: 03/31/19 10:47 Dose: 250 mls/hr Sodium Chloride () 250 mls @ 15 mls/hr IV .[id number] PRN PRN Reason: SALINE FLUSH Potassium Chloride () 10 meq in 100 mls @ 100 mls/hr IV BOLUS Q1H [facility] Stop: 04/01/19 10:59 Insulin Glargine (Lantus (Bkc)) 35 units SC DAILY [facility] Last Admin: 03/31/19 12:18 Dose: 35 u Insulin Human Lispro (Humalog Kwikpen (Bkc)) 0 unit SC Q6 [facility]; Protocol Last Admin: 04/01/19 05:11 Dose: Not Given Lisinopril (Zestril) 40 mg GT DAILY [facility] Last Admin: 03/31/19 10:47 Dose: 40 mg Magnesium Hydroxide (Milk Of Magnesia) 30 ml PO DAILY PRN PRN PRN Reason: Constipation Ondansetron HCl (Zofran) 4 mg IV Q8H PRN PRN PRN Reason: NAUSEA/VOMITING Sodium Chloride () 5 - 15 ml IV UD PRN PRN Reason: SALINE FLUSH Last Admin: 04/01/19 02:47 Dose: 10 ml Throat Lozenges (Cepacol Sore Throat Lozenge) 1 lozenge MUCOUS MEM Q2H PRN PRN PRN Reason: Sore throat or cough Medical Necessity - Tobacco Use Smoking Status: Former smoker Assessment/Plan All Active Problems (Last Reviewed 03/30/19 @ 11:18 by Melquiades Cheng MD) Acute respiratory failure with hypoxia (Acute) Elevated troponin (Acute) Acute respiratory failure with hypoxia and hypercapnia (Acute) History of tubal ligation (Resolved) History of section (Resolved) COPD with acute exacerbation (Acute) Hypertensive urgency (Ruled-out) Otitis media (Ruled-out) Tobacco abuse (Resolved) Patient is a 48-year-old lady with history of advanced COPD and asthma discharged from the hospital a week prior to her readmission presented with progressive shortness of breath 1. Acute hypercapnic and hypoxic respiratory failure secondary to COPD with acute exacerbation patient has been admitted to monitored bed for management of patient underlying etiology. Patient in addition was placed on noninvasive ventilation nasal CPAP with consultation placed to pulmonary medicine. Patient declined to wear the CPAP her condition deteriorated during the night resulting in patient being intubated and transferred to the intensive care unit. Patient self extubated on the evening on 03/31/2019 did discuss with the patient on the need to be compliant with treatment regarding CPAP she promised to be more compliant. 2. COPD with acute exacerbation; treatment as discussed above 3. Chronically elevated troponin 4. Chronic hypoxic respiratory failure on home oxygen 5. Essential hypertension-blood pressure controlled, home medications continued with dose adjustment as needed 6. Chronic back pain 7. Morbid obesity with BMI of 42: Weight loss advised 8. DVT prophylaxis Lovenox 9. Hypokalemia corrected per protocol Code Visit Inpatient E&M: 80390 [facility] Hosp L3
[2019-04-01] MEDS: Enoxaparin 40 MG/0.4 ML Syringe SC (10:48)
[2019-04-01] MEDS: hydroCHLOROthiazide 25 MG Tablet PO (11:01)
[2019-04-01] MEDS: amLODIPine 10 MG Tablet PO (11:01)
[2019-04-01] MEDS: Famotidine 20 MG Tablet PO ×2 (11:02→21:09)
[2019-04-01] MEDS: Lisinopril 40 MG Tablet PO (11:02)
[2019-04-01] MEDS: 0.9% NaCl IVPB Med Flush (250 mL) 15 ML IV (11:07)
[2019-04-01] MEDS: Insulin Lispro 100 UNIT/ML INSULN.PEN SC ×3 (12:39→21:10)
[2019-04-01] MEDS: Gabapentin 600 MG Tablet PO ×2 (12:42→17:42)
[2019-04-01 13:01] LABS: Bedside Glucose 287 mg/dL (70-110)
--- NOTE | 2019-04-01 15:00 | CASEMGMT ---
It was decided Behavioral Health should come and talk with patient to assist with her medical non-compliance as it is felt it is more behavioral in nature. [facility]IM[facility] called and left a message with Sangeeta asking if Sanjay could talk with patient tomorrow. She will give him the message. He will call DIMITRY to see where patient is located as she will be moving to PCU sometime today. Vanessa WAGNER MSW
[2019-04-01 15:16] LABS: Bedside Glucose 196 mg/dL (70-110)
[2019-04-01 17:15] LABS: Bedside Glucose 254 mg/dL (70-110)
[2019-04-01] MEDS: HYDROcodone Bitartrate/Apap 5/325 Tablet PO (21:10)
[2019-04-01 21:40] LABS: Bedside Glucose 316 mg/dL (70-110)
[2019-04-02 01:55] VITALS: PULSE 95; PULSE 98; RESP 12; RESP 18; O2SAT 93
[2019-04-02] MEDS: Ipratropium/Albuterol Sulfate 3 ML AMPUL.NEB INHALATION ×2 (01:55→07:09)
[2019-04-02 02:54] VITALS: PULSE 92
[2019-04-02 03:00] VITALS: BP 154/92; PULSE 92; RESP 20; TEMP 37.3; O2SAT 95
[2019-04-02 06:13] LABS: Absolute Lymphocyte Count 2.16 X10^3/ul (0.83-4.51); Absolute Neutrophil Count 3.8 X10^3/uL (2.0-7.7); Basophil# 0.04 X10^3/uL; Basophil% 0.6 % (0-1); Eosinophil# 0.12 X10^3/uL; Eosinophils% 1.7 % (0-5); Hematocrit 50.3 % (37-47); Hemoglobin 15.1 g/dl (12.0-15.0); Lymphocyte # 2.16 X10^3/ul (4.0); Lymphocyte % 30.3 % (19-41); Mean Corpuscular Hgb 27.1 pg (27.0-32.0); Mean Corpuscular Volume 90.1 fL (81-99); Mean Platelet Vol. 10.7 fl (6.2-12.0); Monocyte# 1.01 X10^3/uL; Monocyte% 14.1 % (0-10); Neutrophil % 53.2 % (47-70); Platelet Count 371 K/mm3 (150-450); RBC Distribution Width CV 15.5 % (11.6-14.6); Red Blood Count 5.58 M/mm3 (4.2-5.4); White Blood Count 7.1 K/mm3 (4.4-11.0)
[2019-04-02 06:14] LABS: POSITIVE COUNT NO; POSITIVE DIFFERENTIAL NO; POSITIVE MORPHOLOGY NO
[2019-04-02 06:20] LABS: Anion Gap 4 (5-15); BUN 13 mg/dL (7-18); BUN/Creat Ratio 22.5 RATIO (10-20); Chloride 101 mmol/L (98-107); Creatinine, Serum 0.58 mg/dL (0.55-1.02); EST Glomerular Filtration Rate 119 mL/min (>60); Est Glom Filt Rate - Afr Amer 144 mL/min (>60); Estimated Creatinine Clearance 94.84 ml/min; Glucose 145 mg/dL (74-106); Potassium 3.5 mmol/L (3.5-5.1); Sodium Level 145 mmol/L (136-145)
[2019-04-02 07:01] LABS: Bedside Glucose 155 mg/dL (70-110)
[2019-04-02 07:03] VITALS: PULSE 85; RESP 16; O2SAT 93
[2019-04-02] MEDS: Budesonide Respules 0.5 MG/2 ML AMPUL.NEB. INHALATION (07:10)
--- NOTE | 2019-04-02 07:16 | PCM.PN.PUL ---
Subjective: The patient was seen and examined at the bedside this morning. Events from the last 24 hours have been reviewed. The patient is currently afebrile, hemodynamically stable and maintaining appropriate oxygen saturations on 4 L/min via nasal cannula. The patient was agreeable to utilizing BiPAP 12/6 centimeters of water last evening. The patient's boyfriend is present at the bedside this morning. The patient is in agreement to follow-up in the pulmonary medicine clinic next week and to obtain an overnight sleep study. She is anxious to be discharged home. Objective: The patient's most recent lab work, culture data and imaging studies have all been personally reviewed. Surface echocardiogram revealed moderate to severe concentric LVH with an ejection fraction of 65% and evidence of diastolic dysfunction. Right ventricular systolic pressure was estimated to be 45 mmHg. Respiratory viral panel was negative. Blood cultures have revealed no growth to date. CTA chest completed on March 31 revealed no evidence for pulmonary embolism. There was evidence of right basilar atelectasis. Sputum culture appears to be normal respiratory carrie. - Physical Exam General: Alert, Cooperative, No apparent distress, - - Sitting in bedside recliner. HEENT: Atraumatic, PERRLA, Normocephalic Oral: No Gingival or Mucosal Lesions/ Ulcerations Neck: Supple, No Nodes, Trachea Midline Lungs: Diminished, - - Some residual wheezing, although improved from previous Cardiovascular: Regular rate, Regular Rhythm, Normal S1, Normal S2, No murmurs Abdomen: Bowel Sounds Present, Soft, Non Tender, Obese Extremities: No clubbing, No cyanosis, No edema Skin: No breakdown Musculoskeletal: No Tenderness to Palpation of Joints or Extremities, No Muscle Wasting Lymphatic: No Cervical, Supraclavicular, or Inguinal Adenopathy Neurological: Cranial nerves II-XII grossly intact, Neuro grossly intact Psych/Mental Status: - - The patient is quite anxious in appearance. Vital Signs Temp Pulse Resp BP Pulse Ox 99.2 F H 92 20 H 154/92 H 95 04/02/19 03:00 04/02/19 03:00 04/02/19 03:00 04/02/19 03:00 04/02/19 03:00 Oxygen Flow Rate (L/min) 4 Oxygen Delivery Method CPAP Weight: 240 lb 15.444 oz Body Mass Index (BMI) 43.1 Intake and Output for Last 24 Hours 05/07/1204/01/19 04/02/19 23:59 23:59 23:59 Intake Total 1696.5 / 1696.5 1811 / 1811 200 / 200 Output Total 4125 / 4125 1475 / 1475 Balance -2428.5 / -2428.5 336 / 336 200 / 200 Microbiology Past 72 Hours 03/30/19 10:05 Blood Culture - Preliminary Blood Culture (Wb) - Arm Left No growth in 48 hours. 03/30/19 09:03 Blood Culture - Preliminary Blood Culture (Wb) - Arm Left No growth in 48 hours. 03/31/19 02:40 Gram Stain - Final Sputum, Induced/Lukens Respiratory Culture - Preliminary Appears to be normal respiratory carrie. Further studies to follow. 03/31/19 07:50 Respiratory Panel (PCR) - Final Mucosa - Nasopharyngeal Laboratory Tests Past 24 Hrs 04/02/19 04/02/19 05:20 05:20 WBC 7.1 RBC 5.58 H Hgb 15.1 H Hct 50.3 H MCV 90.1 MCH 27.1 MCHC 30.0 L RDW 15.5 H RDW Differential 51.0 H Plt Count 371 MPV 10.7 Immature Gran % (Auto) 0.100 Neut % (Auto) 53.2 Lymph % (Auto) 30.3 Craig % (Auto) 14.1 H Eos % (Auto) 1.7 Baso % (Auto) 0.6 Absolute Neuts (auto) 3.8 Absolute Lymphs (auto) 2.16 Total Counted Not Reportable Sodium 145 Potassium 3.5 Chloride 101 Carbon Dioxide 40.0 H Anion Gap 4 L BUN 13 Creatinine 0.58 Estim Creat Clear Calc 94.84 Est GFR (MDRD) Af Amer 144 Est GFR (MDRD) Non-Af 119 BUN/Creatinine Ratio 22.5 H Glucose 145 H Calcium 9.0 POC Glucose 04/02/19 04/01/19 04/01/19 06:39 21:08 17:11 POC Glucose 155 H 316 H 254 H 04/01/19 04/01/19 15:08 12:34 POC Glucose 196 H 287 H Clinical Impression(s) from Imaging Studies Chest X-Ray 03/30/19 08:55 IMPRESSION: Mild degree of increased markings at the right lung base suggestive of atelectasis and/or early infiltrate. Follow-up is recommended. Electronically Signed: Luis Montoyaluis antonio, at 9:10 EDT , Service support , Chest X-Ray 03/31/19 02:40 IMPRESSION: 1. Appropriate positioning of supportive tubes. 2. No acute pulmonary infiltrate Electronically Signed: Shaq Bassett MD at 4:17 EDT Tel , Service support , KUB X-Ray 03/31/19 02:50 IMPRESSION: Orogastric tube extending to the lower gastric body lumen. Electronically Signed: Shaq Bassett MD at 3:17 EDT Tel , Service support , Chest CTA 03/31/19 06:57 IMPRESSION: There is no evidence of pulmonary embolism. Mild increased markings at the right lung base suggestive of atelectasis. Mild scarring at the left lung base. Electronically Signed: Luis Fede, at 11:10 EDT , Service support , Medical Necessity - Tobacco Use Smoking Status: Former smoker Assessment/Plan All Active Problems (Last Reviewed 03/30/19 @ 11:18 by Melquiades Cheng MD) Acute respiratory failure with hypoxia (Acute) Elevated troponin (Acute) Acute respiratory failure with hypoxia and hypercapnia (Acute) History of tubal ligation (Resolved) History of section (Resolved) COPD with acute exacerbation (Acute) Hypertensive urgency (Ruled-out) Otitis media (Ruled-out) Tobacco abuse (Resolved) RECOMMENDATIONS: 1. Wean supplemental oxygen to maintain saturations 88 to 92%. 2. Continue scheduled bronchodilators and budesonide. 3. Continue Neurontin at reduced dose. 4. Recommend use of nocturnal PAP therapy. 5. Recommend outpatient diagnostic polysomnogram. 6. Perform walking oximetry study prior to consideration for discharge from the hospital. 7. The patient is currently scheduled to follow-up with us in the pulmonary medicine clinic on April 06 at 7:45 AM. 8. The patient can resume Symbicort at discharge. Recommend providing her with a prescription for Spiriva Respimat as well. IMPRESSIONS: 1. Acute on chronic combined respiratory failure The patient has a self-reported history of both COPD and asthma along with a baseline 4 L/min supplemental oxygen requirement. The patient is also a chronic CO2 retainer. Although she was seen initially in the pulmonary medicine clinic, the patient never followed up, nor completed any of her testing. She does have an extensive smoking history and continues to smoke, as recently as 4 days prior to her hospital admission. While the patient initially responded appropriately to the use of bronchodilators and noninvasive positive pressure ventilation, she later became noncompliant with medical therapy and had to be intubated as a consequence of this. The patient then went on to self extubate on the evening of March 31. The patient has been intermittently compliant with prescribed medical therapy, but does report that she is willing to follow-up in the pulmonary medicine clinic. The patient is also agreeable to obtaining a sleep study so that BiPAP can be initiated, if clinically indicated. Given the patient's significant adverse behavioral manifestations from the use of prednisone, would recommend continuing budesonide. At discharge, the patient can resume Symbicort. I would also provide her with a prescription for Spiriva Respimat as well. Perform walking oximetry study prior to consideration for discharge from the hospital. The patient has an established follow-up office visit with us next week. 2. Heart failure with preserved ejection fraction/pulmonary hypertension/troponin elevation Troponin elevation likely secondary to hypoxemia. 3. Clinical concern for underlying sleep disordered breathing The patient needs to follow-up with the pulmonary medicine clinic so that a diagnostic polysomnogram can be completed. In the interim, would recommend empiric utilization of AVAPS with naps and nightly. 4. Continuous tobacco dependency/diabetes mellitus/morbid obesity/history of medical noncompliance/chronic pain syndrome Complicates care, management, recovery and prognosis. Continue home antihypertensive regimen. Nicotine replacement therapy can be offered to the patient while she is admitted to the hospital. This note was generated with [employer] software. It may contain incorrect words, spelling, and punctuation that were not noted in checking the note before signing. Code Visit Inpatient E&M: 44580 Subs Hosp L2
[2019-04-02 08:00] VITALS: PULSE 92
[2019-04-02 09:00] VITALS: BP 170/78; PULSE 99; RESP 18; TEMP 37.1; O2SAT 94
[2019-04-02] MEDS: Insulin Lispro 100 UNIT/ML INSULN.PEN SC (09:01)
[2019-04-02] MEDS: Gabapentin 600 MG Tablet PO (09:02)
[2019-04-02] MEDS: Enoxaparin 40 MG/0.4 ML Syringe SC (09:03)
[2019-04-02] MEDS: hydroCHLOROthiazide 25 MG Tablet PO (09:03)
[2019-04-02] MEDS: amLODIPine 10 MG Tablet PO (09:03)
[2019-04-02] MEDS: Lisinopril 40 MG Tablet PO (09:04)
[2019-04-02] MEDS: Famotidine 20 MG Tablet PO (09:04)
[2019-04-02] MEDS: HYDROcodone Bitartrate/Apap 5/325 Tablet PO (09:09)
--- NOTE | 2019-04-02 09:48 | PCM.DC ---
You will use the following diet at home:: Cardiac Discharge Activity: May not drive while taking narcotic pain medications. Allergies/Adverse Reactions: Allergies aspirin Allergy (Verified 03/30/19 08:34) Anaphylaxis cyclobenzaprine HCl [From Flexeril] Allergy (Verified 03/30/19 08:34) Rash levofloxacin [From Levaquin] Allergy (Verified 03/30/19 08:34) Rash naproxen [From Naprosyn] Allergy (Verified 03/30/19 08:34) Anaphylaxis bupropion HCl [From Wellbutrin] Adverse Reaction (Verified 03/30/19 08:34) nightmares NIGHTMARES doxycycline Adverse Reaction (Verified 03/30/19 08:34) Diarrhea Medications to take at Discharge Amlodipine [Norvasc] 10 mg PO DAILY 08/13/15 Lisinopril [Zestril] 40 mg PO DAILY 02/11/16 Hydrochlorothiazide [Hctz] 25 mg PO DAILY 10/26/17 Oxygen, Home [Home Oxygen] 2 - 4 lpm NASAL PRN PRN 10/26/17 Albuterol IH (ProAir) [Proair Hfa] 2 puff INHALATION Q4H PRN PRN #1 inhaler 10/29/17 epinephrine 1 mg/mL injection kit 1 mg IM Q10M PRN #1 ea 11/13/17 Ipratropium/Albuterol Sulfate [Duoneb] 3 ml INHALATION 4X/DAY 03/10/18 Omeprazole 1 tab PO BREAKFAST 06/09/18 Oxycodone [Oxyir] 5 mg PO Q4H PRN PRN 5 Days #14 tablet 06/10/18 Albuterol Aerosols [Ventolin Aerosols] 2.5 mg INHALATION Q4H PRN PRN 03/13/19 Albuterol Sulfate [Ventolin Hfa] 90 mcg INHALATION Q4H PRN 03/13/19 Budesonide/Formoterol 160/4.5 [Symbicort 160/4.5 Mcg Inhaler (SP)] 2 puff INHALATION BID #1 inhaler 03/18/19 Guaifenesin [Mucinex] 1,200 mg PO BID 03/30/19 Insulin Glargine,Hum.rec.anlog [Basaglar Kwikpen U-100] 35 unit SQ DAILY 03/30/19 Tiotropium [place] [Spiriva 18 MCG] 1 puff INHALATION DAILY #2 inhaler 04/02/19 The following prescriptions were given: Tiotropium [place] [Spiriva 18 MCG] 1 puff INHALATION DAILY #2 inhaler Primary Care Physician: Rita Melton MD [Primary Care Provider] - Please follow up with your Primary Care Physician in: in 5-7 days Test Results: Test results from this visit will be discussed in further detail at your follow-up appointment, if applicable. Please Follow Up With: Danni Bahena NP-C When: on 06/06/19 @0730 Proposed Discharge Date: 04/02/19
--- NOTE | 2019-04-02 09:53 | DS.PCM_ITS ---
Discharge Date and Diagnosis Date of Admission: 03/30/19 Date of Discharge: 04/02/19 - Primary Discharge Diagnosis Acute hypoxic and hypercapnic respiratory failure secondary to COPD exacerbation - Secondary Discharge Diagnosis Chronic Problems (Last Reviewed 03/30/19 @ 11:18 by Melquiades Cheng MD) Morbid obesity with BMI of 40.0-44.9, adult (Chronic) Hypertension (Chronic) COPD exacerbation (Chronic) Tobacco abuse (Chronic) Hypersomnia (Chronic) Benign essential hypertension (Chronic) Herniated thoracic disc without myelopathy (Chronic) Chronic back pain (Chronic) COPD (Chronic) Asthma (Chronic) GERD (gastroesophageal reflux disease) (Chronic) Obesity (BMI 30-39.9) (Chronic) Diabetes mellitus, type II (Chronic) Hospital Course and Treatment Operations: None Summary of Care Provided: Patient is a 48-year-old lady with history of advanced COPD and asthma discharged from the hospital a week prior to her readmission presented with progressive shortness of breath 1. Acute hypercapnic and hypoxic respiratory failure secondary to COPD with acute exacerbation patient has been admitted to monitored bed for management of patient underlying etiology. Patient in addition was placed on noninvasive ventilation nasal CPAP with consultation placed to pulmonary medicine. Patient declined to wear the CPAP her condition deteriorated during the night resulting in patient being intubated and transferred to the intensive care unit. Patient self extubated on the evening on 03/31/2019 did discuss with the patient on the need to be compliant with treatment regarding CPAP she promised to be more compliant. Patient was instructed to follow-up with pulmonary medicine on 04/06/2019 at 0730 for subsequent care. Prescription was also written for Spiriva. 2. COPD with acute exacerbation; treatment as discussed above 3. Chronically elevated troponin 4. Chronic hypoxic respiratory failure on home oxygen 5. Essential hypertension-blood pressure controlled, home medications continued with dose adjustment as needed 6. Chronic back pain 7. Morbid obesity with BMI of 42: Weight loss advised 8. DVT prophylaxis Lovenox 9. Hypokalemia corrected per protocol 10. Suspected sleep apnea patient undergo subsequent evaluation as outpatient with a sleep study to be arranged by pulmonary medicine Objective: GENERAL: cooperative HEENT: Atraumatic; EYES; Anicteric, Normal Conjunctiva NECK; supple, normal thyroid, RESPIRATORY: Diminished to auscultation bilaterally, CARDIOVASCULAR: Regular S1 S2, GI: soft, non-tender, normoactive bowel sounds, NEURO: Grossly intact no lateralizing signs SKIN: No Rash PSYCH; flat affect - Physical Exam Vital Signs Temp Pulse Resp BP Pulse Ox 99.2 F H 92 16 154/92 H 93 04/02/19 03:00 04/02/19 08:00 04/02/19 07:03 04/02/19 03:00 04/02/19 07:03 Oxygen Flow Rate (L/min) 4 Oxygen Delivery Method Nasal Cannula Weight: 109.3 kg Body Mass Index (BMI) 43.1 Intake and Output for Last 24 Hours 03/31/19 04/01/19 04/02/19 23:59 23:59 23:59 Intake Total 1696.5 / 1696.5 1811 / 1811 200 / 200 Output Total 4125 / 4125 1475 / 1475 Balance -2428.5 / -2428.5 336 / 336 200 / 200 Microbiology Past 72 Hours 03/31/19 02:40 Gram Stain - Final Sputum, Induced/Lukens Respiratory Culture - Final 03/30/19 10:05 Blood Culture - Preliminary Blood Culture (Wb) - Arm Left No growth in 48 hours. 03/30/19 09:03 Blood Culture - Preliminary Blood Culture (Wb) - Arm Left No growth in 48 hours. 03/31/19 07:50 Respiratory Panel (PCR) - Final Mucosa - Nasopharyngeal Laboratory Tests Past 24 Hrs 04/02/19 04/02/19 05:20 05:20 WBC 7.1 RBC 5.58 H Hgb 15.1 H Hct 50.3 H MCV 90.1 MCH 27.1 MCHC 30.0 L RDW 15.5 H RDW Differential 51.0 H Plt Count 371 MPV 10.7 Immature Gran % (Auto) 0.100 Neut % (Auto) 53.2 Lymph % (Auto) 30.3 [place] % (Auto) 14.1 H Eos % (Auto) 1.7 Baso % (Auto) 0.6 Absolute Neuts (auto) 3.8 Absolute Lymphs (auto) 2.16 Total Counted Not Reportable Sodium 145 Potassium 3.5 Chloride 101 Carbon Dioxide 40.0 H Anion Gap 4 L BUN 13 Creatinine 0.58 Estim Creat Clear Calc 94.84 Est GFR (MDRD) Af Amer 144 Est GFR (MDRD) Non-Af 119 BUN/Creatinine Ratio 22.5 H Glucose 145 H Calcium 9.0 POC Glucose 04/02/19 04/01/19 04/01/19 06:39 21:08 17:11 POC Glucose 155 H 316 H 254 H 04/01/19 04/01/19 15:08 12:34 POC Glucose 196 H 287 H Discharge Diet: Low fat/ Low Cholesterol, 1800 Calorie Control Diet Discharge Activity: May not drive while taking narcotic pain medications. Home Medications: Medications to take at Discharge Amlodipine [Norvasc] 10 mg PO DAILY 08/13/15 Lisinopril [Zestril] 40 mg PO DAILY 02/11/16 Hydrochlorothiazide [Hctz] 25 mg PO DAILY 10/26/17 Oxygen, Home [Home Oxygen] 2 - 4 lpm NASAL PRN PRN 10/26/17 Albuterol IH (ProAir) [Proair Hfa] 2 puff INHALATION Q4H PRN PRN #1 inhaler 10/29/17 epinephrine 1 mg/mL injection kit 1 mg IM Q10M PRN #1 ea 11/13/17 Ipratropium/Albuterol Sulfate [Duoneb] 3 ml INHALATION 4X/DAY 03/10/18 Omeprazole 1 tab PO BREAKFAST 06/09/18 Oxycodone [Oxyir] 5 mg PO Q4H PRN PRN 5 Days #14 tablet 06/10/18 Albuterol Aerosols [Ventolin Aerosols] 2.5 mg INHALATION Q4H PRN PRN 03/13/19 Albuterol Sulfate [Ventolin Hfa] 90 mcg INHALATION Q4H PRN 03/13/19 Budesonide/Formoterol 160/4.5 [Symbicort 160/4.5 Mcg Inhaler (SP)] 2 puff INHALATION BID #1 inhaler 03/18/19 Guaifenesin [Mucinex] 1,200 mg PO BID 03/30/19 Insulin Glargine,Hum.rec.anlog [Basaglar Kwikpen U-100] 35 unit SQ DAILY 03/30/19 Tiotropium [place] [Spiriva 18 MCG] 1 puff INHALATION DAILY #2 inhaler 04/02/19 Following Prescrptions Were Given to Patient: Tiotropium [place] [Spiriva 18 MCG] 1 puff INHALATION DAILY #2 inhaler Primary Care Physician: Rita Melton MD [Primary Care Provider] - Please follow up with your Primary Care Physician in: in 5-7 days Please Follow Up With: Danni Bahena NP-C When: on 06/06/19 @5887 Disposition: Home Minutes spent on discharge:: 38 Patient Condition:: Stable Medical Necessity - Tobacco Use Smoking Status: Former smoker Meaningful Use Info Meaningful Use Diagnoses (Choose all that apply): None applicable Code Visit Inpatient E&M: 05802 Disch Hosp
--- NOTE | 2019-04-02 10:20 | CASEMGMT ---
Physicians would like pt to be set up with sleep study belinda. Call to Sleep center as pt to be discharged today and per Alyssia in the sleep center, they do not have any current openings for pt this evening but Alyssia will notify this RN CM if any openings occur. Alyssia states that she will put pt on the waiting list and she is aware that pt has pulm f/u this friday, voices understanding. Dr. Myers updated[facility]
--- NOTE | 2019-04-02 11:01 | CASEMGMT ---
Patient was discharged before Behavioral Health could see her. DIMITRY notified [place] at [facility]. Vanessa MONTEMAYOR
== END 2019-04-02 11:01 | disposition home or self-care (01) | DRG 133 ==
LOC: ED 09:03 → PCU 11:41 → ICU 03-31 01:07 → PCU 04-02 08:57
PROVIDERS: Family Medicine; Admitting Provider Internal Medicine; Emergency Provider Emergency Medicine; Family Provider Internal Medicine; PCP Internal Medicine; Visit Provider Internal Medicine
DX: J96.02 Acute respiratory failure with hypercapnia (principal); Z99.81 Dependence on supplemental oxygen; E66.01 Morbid (severe) obesity due to excess calories; Z68.41 Body mass index [BMI] 40.0-44.9, adult; J44.1 Chronic obstructive pulmonary disease with (acute) exacerbation; E11.9 Type 2 diabetes mellitus without complications; K21.9 Gastro-esophageal reflux disease without esophagitis; G89.29 Other chronic pain; M54.9 Dorsalgia, unspecified; E87.6 Hypokalemia; J96.21 Acute and chronic respiratory failure with hypoxia; I10 Essential (primary) hypertension; Z79.4 Long term (current) use of insulin; Z72.0 Tobacco use; M51.24 Other intervertebral disc displacement, thoracic region
CPT/HCPCS: 31500; 31720; 36415; 36600; 71045; 71275; 74018; 80048; 82550; 82803; 82962; 83605; 83735; 83880; 84478; 84484; 85025; 87040; 87070; 87205; 87633; 93005; 94002; 94003; 94640; 97802; 99251; 99283; 99406; J7030; J7050; Q9967; A4216; G0463; J0330

== ENCOUNTER 2019-04-03 12:24 | Inpatient (IN) | payer MEDICAID, SELFPAY ==
[2019-04-02 09:38] VITALS: BMI 43.1
[2019-04-03] VITALS (21 sets, daily range): BP systolic 126–167; BP diastolic 75–99; PULSE 77–97; RESP 12–30; TEMP 36.6–37; O2SAT 30–97; BMI 40.7; BMI 39.9; BMI 40.0
--- NOTE | 2019-04-03 12:30 | RAD_ITS ---
STUDY: X-RAY CHEST REASON FOR EXAM: Female, 48 years old. Shortness of breath TECHNIQUE: Single AP portable view of the chest. COMPARISON: March 31, 2019 chest x-ray FINDINGS: Interstitial markings are mildly prominent within the record is on left lung. There is no demonstrated pleural abnormality. There is borderline cardiomegaly. Normal mediastinum and milton. Normal visualized pulmonary arteries. Normal visualized aortic arch and descending thoracic aorta. Normal visualized thoracic spine. Normal visualized ribs, clavicles, and shoulders. There is no demonstrated abnormality of the visualized soft tissue structures of the upper abdomen. RAD/Chest 1 View (Portable) IMPRESSION: Nonspecific interstitial prominence right greater than left lung. Could consider atelectasis. Status post extubation. Electronically Signed: Angle Herrera MD at 12:56 EDT Tel , Service support ,
--- NOTE | 2019-04-03 12:30 | EKG12_ITS ---
Test Reason : SOB Blood Pressure : / mmHG Vent. Rate : 087 BPM Atrial Rate : 087 BPM P-R Int : 138 ms QRS Dur : 078 ms QT Int : 348 ms P-R-T Axes : 071 036 035 degrees QTc Int : 418 ms Normal sinus rhythm Septal infarct , age undetermined Abnormal ECG Confirmed by SASKIA COBURN ([id number]), rewrite editor DOV LONGO ([id number]) on 04/05/2019 1:52:51 PM Referred By: Melquiades Cheng Confirmed By:SASKIA COBURN
[2019-04-03] MEDS: MethylPREDNISolone 125 MG/2 ML Vial IV (12:37)
[2019-04-03 12:44] LABS: Absolute Lymphocyte Count 1.25 X10^3/ul (0.83-4.51); Absolute Neutrophil Count 10.1 X10^3/uL (2.0-7.7); Basophil# 0.03 X10^3/uL; Basophil% 0.2 % (0-1); Eosinophil# 0.16 X10^3/uL; Eosinophils% 1.3 % (0-5); Hematocrit 56.1 % (37-47); Hemoglobin 16.7 g/dl (12.0-15.0); Lymphocyte # 1.25 X10^3/ul (4.0); Lymphocyte % 9.9 % (19-41); Mean Corp Hgb Conc 29.8 g/gl (32-36); Mean Corpuscular Hgb 27.4 pg (27.0-32.0); Mean Platelet Vol. 10.5 fl (6.2-12.0); Monocyte# 1.02 X10^3/uL; Monocyte% 8.1 % (0-10); Neutrophil # 10.14 X10^3/uL (2.7-7.7); Neutrophil % 80.3 % (47-70); POSITIVE COUNT NO; POSITIVE DIFFERENTIAL NO; POSITIVE MORPHOLOGY NO; Platelet Count 364 K/mm3 (150-450); RBC Distribution Width CV 14.6 % (11.6-14.6); RBC Distribution Width SD 48.3 fl (35.1-43.9); White Blood Count 12.6 K/mm3 (4.4-11.0)
[2019-04-03] MEDS: Ipratropium/Albuterol Sulfate 3 ML AMPUL.NEB INHALATION ×2 (12:44→18:33)
[2019-04-03] MEDS: Albuterol 2.5 MG/3 ML VIAL.NEB. INHALATION ×3 (12:44→12:45)
--- NOTE | 2019-04-03 12:49 | ED.DCSUM_ITS ---
- ER Visit Summary Date of Service: 04/03/19 Chief Complaint: Shortness of breath History of Present Illness: The patient is a 48 F presenting with shortness of breath and respiratory distress. Patient was discharged from the hospital yesterday. She was admitted from March 30 to April 02. During that admission she refused BiPAP. She ended up with intubation. She self extubated the next day. She states she is supposed to be fitted for a home BiPAP. She is on home O2 2 to 4 L. She had to increase this to 6L today and continues to have respiratory distress. She states she is typically discharged on steroids but was not discharged with steroids yesterday. She is a smoker. Physical Examination: Vitals are stable. Patient is afebrile. Respiratory rate 27. Alert moderate distress. HEENT exam is unremarkable. Neck is supple. Lungs are tachypnea, retractions, diminished breath sounds, expiratory wheezing Heart is regular rate and rhythm. Abdomen is soft nontender nondistended. Extremities are unremarkable. Skin is warm and dry. No focal neurologic deficit. Remainder of exam is unremarkable. Emergency Department Course and Treatment: Patient was put on BiPAP on arrival. She was given Solu-Medrol, albuterol, Atrovent aerosols. ABG shows pH 7.31, PCO2 82.2, PO2 77, HCO3 41.3. CBC shows white count of 12.6. Glucose is 172. Troponin 0.049. Chest x-ray shows nonspecific interstitial prominence right greater than left lung. Could consider atelectasis. Status post extubation. EKG is sinus rhythm rate of 87 with no acute ischemic changes. She is tolerating BiPAP in the emergency department. Discussed with the hospitalist for admission. Disposition: Admission Impression: Acute hypercapnic respiratory failure, COPD This note was generated with [employer] dictation software. It may contain incorrect words, spelling, and punctuation that were not noted in review of the chart prior to signing ED Disposition - Plan for ED Patient: Referrals: Rita Melton MD [Primary Care Provider] -
[2019-04-03 13:05] LABS: Anion Gap 1 (5-15); BUN 8 mg/dL (7-18); BUN/Creat Ratio 16.4 RATIO (10-20); Calcium,Total 9.2 mg/dL (8.5-10.1); Chloride 96 mmol/L (98-107); Creatinine, Serum 0.49 mg/dL (0.55-1.02); EST Glomerular Filtration Rate 144 mL/min (>60); Est Glom Filt Rate - Afr Amer 175 mL/min (>60); Estimated Creatinine Clearance 117.41 ml/min; Glucose 172 mg/dL (74-106); Potassium 4.3 mmol/L (3.5-5.1); Sodium Level 137 mmol/L (136-145)
[2019-04-03 13:11] LABS: Allen Test POS; Base Excess 15 mmol/L (-2 to +2); Bicarbonate 41.3 mmol/L (22-26); Blood Gas Specimen Type ART; EPAP 8; FI02 35; IPAP 14; PO2 77 mmHG (75-100); RR 12; SITE R Radial; SO2 93 % (95-99); Time Given 1257; Total Carbon Dioxide 44 mmol/L; pCO2 82.2 mmHg (35-45); pH 7.31 (7.35-7.45)
--- NOTE | 2019-04-03 14:00 | NURSING ---
DR MANJIT MUELLER
--- NOTE | 2019-04-03 14:07 | HP.PCM_ITS ---
Problem List (1) Morbid obesity with BMI of 40.0-44.9, adult Status: Chronic (2) Acute respiratory failure with hypoxia Status: Acute (3) Hypertension Status: Chronic Qualifiers: Hypertension type: essential hypertension Qualified Code(s): I10 - Essential (primary) hypertension (4) Elevated troponin Status: Acute (5) Acute respiratory failure with hypoxia and hypercapnia Status: Acute (6) COPD exacerbation Status: Chronic (7) Tobacco abuse Status: Chronic (8) Hypersomnia Status: Chronic (9) History of tubal ligation Status: Resolved (10) History of section Status: Resolved (11) COPD with acute exacerbation Status: Acute (12) Hypertensive urgency Status: Ruled-out (13) Otitis media Status: Ruled-out (14) Benign essential hypertension Status: Chronic (15) Herniated thoracic disc without myelopathy Status: Chronic (16) Chronic back pain Status: Chronic (17) COPD Status: Chronic (18) Asthma Status: Chronic Qualifiers: Asthma severity: unspecified severity Asthma persistence: unspecified Asthma complication type: unspecified Qualified Code(s): J45.909 - Unspecified asthma, uncomplicated; J45.909 - Unspecified asthma, uncomplicated; J45.909 - Unspecified asthma, uncomplicated (19) GERD (gastroesophageal reflux disease) Status: Chronic (20) Obesity (BMI 30-39.9) Status: Chronic (21) Diabetes mellitus, type II Status: Chronic Qualifiers: Diabetes mellitus fci insulin use: unspecified 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 Per patient she did experience worsening shortness of breath after being discharged. She had bumped her oxygen level to 6 L without much improvement was finally brought to the emergency department by family ABGs obtained in the emergency department demonstrated acute hypercapnic respiratory failure she agreed to be placed on BiPAP and subsequently admitted to a monitored bed for further management Past Medical History Past Medical History (Chronic Problems): Chronic Problems (Last Reviewed 03/30/19 @ 11:18 by Melquiades Cheng MD) Morbid obesity with BMI of 40.0-44.9, adult (Chronic) Hypertension (Chronic) COPD exacerbation (Chronic) Tobacco abuse (Chronic) Hypersomnia (Chronic) Benign essential hypertension (Chronic) Herniated thoracic disc without myelopathy (Chronic) Chronic back pain (Chronic) COPD (Chronic) Asthma (Chronic) GERD (gastroesophageal reflux disease) (Chronic) Obesity (BMI 30-39.9) (Chronic) Diabetes mellitus, type II (Chronic) Medical History: Medical History (Last Reviewed 04/03/19 @ 14:16 by Melquiades Cheng MD) COPD with acute exacerbation (Acute) J44.1 Hypertensive urgency (Ruled-out) I16.0 Otitis media (Ruled-out) H66.90 Benign essential hypertension (Chronic) I10 Herniated thoracic disc without myelopathy (Chronic) M51.24 Chronic back pain (Chronic) M54.9, G89.29 COPD (Chronic) Asthma (Chronic) J45.909 GERD (gastroesophageal reflux disease) (Chronic) K21.9 Obesity (BMI 30-39.9) (Chronic) E66.9 Diabetes mellitus, type II (Chronic) E11.9 Allergies aspirin Allergy (Verified 03/30/19 08:34) Anaphylaxis cyclobenzaprine HCl [From Flexeril] Allergy (Verified 03/30/19 08:34) Rash levofloxacin [From Levaquin] Allergy (Verified 03/30/19 08:34) Rash naproxen [From Naprosyn] Allergy (Verified 03/30/19 08:34) Anaphylaxis bupropion HCl [From Wellbutrin] Adverse Reaction (Verified 03/30/19 08:34) nightmares NIGHTMARES doxycycline Adverse Reaction (Verified 03/30/19 08:34) Diarrhea Home Medications: Ambulatory Orders Medication Instructions Recorded Amlodipine [Norvasc] 10 mg PO DAILY 08/13/15 Lisinopril [Zestril] 40 mg PO DAILY 02/11/16 Hydrochlorothiazide [Hctz] 25 mg PO DAILY 10/26/17 Oxygen, Home [Home Oxygen] 2 - 4 lpm NASAL PRN PRN 10/26/17 Albuterol IH (ProAir) [Proair Hfa] 2 puff INHALATION Q4H PRN PRN #1 10/29/17 inhaler epinephrine 1 mg/mL injection kit 1 mg IM Q10M PRN #1 ea 11/13/17 Ipratropium/Albuterol Sulfate 3 ml INHALATION 4X/DAY 03/10/18 [Duoneb] Omeprazole 1 tab PO BREAKFAST 06/09/18 Oxycodone [Oxyir] 5 mg PO Q4H PRN PRN 5 Days #14 06/10/18 tablet Albuterol Aerosols [Ventolin 2.5 mg INHALATION Q4H PRN PRN 03/13/19 Aerosols] Albuterol Sulfate [Ventolin Hfa] 90 mcg INHALATION Q4H PRN 03/13/19 Budesonide/Formoterol 160/4.5 2 puff INHALATION BID #1 inhaler 03/18/19 [Symbicort 160/4.5 Mcg Inhaler (SP)] Guaifenesin [Mucinex] 1,200 mg PO BID 03/30/19 Insulin Glargine,Hum.rec.anlog 35 unit SQ DAILY 03/30/19 [Basaglar Kwikpen U-100] Tiotropium [place] [Spiriva 18 MCG] 1 puff INHALATION DAILY #2 inhaler 04/02/19 Surgical History: Surgical History (Last Reviewed 04/03/19 @ 14:16 by Melquiades Cheng MD) History of tubal ligation (Resolved) Z98.51 History of section (Resolved) Z98.891 Surgical History: noncontributory, - Psychiatric History: No pertinent psych hx 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 Smoking Status: Former smoker - *Family History Sibling Family History: Family History (Last Reviewed 04/03/19 @ 14:16 by Melquiades Cheng MD) Mother Breast cancer Cancer Father COPD (chronic obstructive pulmonary disease) Hypertension Heart disease Cancer History Items: Pulmonary Disease - age 34 secondary to pulmonary hypertension Maternal Family History: Family History (Last Reviewed 04/03/19 @ 14:16 by Melquiades Cheng MD) Mother Breast cancer Cancer Father COPD (chronic obstructive pulmonary disease) Hypertension Heart disease Cancer History Items: Cancer - alive age 63, breast and skin Paternal Family History: Family History (Last Reviewed 04/03/19 @ 14:16 by Melquiades Cheng MD) Mother Breast cancer Cancer Father COPD (chronic obstructive pulmonary disease) Hypertension Heart disease Cancer History Items: Cancer - Skin cancer, COPD - alive age 65, Heart Disease, Hypertension, No pertinent history Review of Systems Unable to obtain accurate/complete ROS d/t: Patient being on BiPAP VTE Information - Inpt Only VTE Present on Admission: No VTE Mechan Device Prophylaxis: None VTE Pharm Prophylaxis ordered?: Yes Objective: GENERAL: On BiPAP HEENT: Atraumatic; moist oral mucosa EYES; Anicteric, Normal Conjunctiva NECK; supple, normal thyroid, RESPIRATORY: Diminished to auscultation bilaterally, with some wheezes CARDIOVASCULAR: Regular S1 S2, no audible murmurs GI: soft, non-tender, normoactive bowel sounds, : No Renal angle tenderness; EXTREMITIES: No edema, no clubbing, MUSCULOSKELETAL: No Joint Tenderness; NEURO: no lateralizing signs. SKIN: No Rash PSYCH; Normal affect - Physical Exam Vital Signs Temp Pulse Resp BP Pulse Ox 97.8 F 89 18 167/95 H 90 04/03/19 13:30 04/03/19 13:30 04/03/19 13:30 04/03/19 13:30 04/03/19 13:30 Oxygen Delivery Method Bi-pap Weight: 104.326 kg Body Mass Index (BMI) 40.7 Laboratory Tests Past 24 Hrs 04/03/19 04/03/19 04/03/19 12:30 12:30 12:59 WBC 12.6 H RBC 6.10 H Hgb 16.7 H Hct 56.1 H MCV 92.0 MCH 27.4 MCHC 29.8 L RDW 14.6 RDW Differential 48.3 H Plt Count 364 MPV 10.5 Immature Gran % (Auto) 0.200 Neut % (Auto) 80.3 H Lymph % (Auto) 9.9 L [place] % (Auto) 8.1 Eos % (Auto) 1.3 Baso % (Auto) 0.2 Absolute Neuts (auto) 10.1 H Absolute Lymphs (auto) 1.25 Total Counted Not Reportable Specimen Type ART Sample Site R Radial pH 7.31 L Bicarbonate Actual 41.3 H POC Total CO2 44 Base Excess 15 H O2 Saturation 93 L O2 % 35 ABG pCO2 82.2 H* ABG pO2 77 Baudilio Test POS Respiration Rate 12 O2 Delivery Device Bi / C PAP EPAP 8 IPAP 14 Blood Gas Notified Whom ED Blood Gas Notified Time 1257 Sodium 137 Potassium 4.3 Chloride 96 L Carbon Dioxide 40.0 H Anion Gap 1 L BUN 8 Creatinine 0.49 L Estim Creat Clear Calc 117.41 Est GFR (MDRD) Af Amer 175 Est GFR (MDRD) Non-Af 144 BUN/Creatinine Ratio 16.4 Glucose 172 H Calcium 9.2 Troponin I 0.049 H Assessment/Plan All Active Problems (Last Reviewed 03/30/19 @ 11:18 by Melquiades Cheng MD) Acute respiratory failure with hypoxia (Acute) Elevated troponin (Acute) Acute respiratory failure with hypoxia and hypercapnia (Acute) History of tubal ligation (Resolved) History of section (Resolved) COPD with acute exacerbation (Acute) Hypertensive urgency (Ruled-out) Otitis media (Ruled-out) Tobacco abuse (Resolved) Patient is a 48-year-old lady with history of advanced COPD and asthma recent multiple readmissions for COPD exacerbation presented with increasing shortness of breath 1. Acute hypercapnic and hypoxic respiratory failure secondary to COPD with acute exacerbation patient has been admitted to monitored bed for management of patient was placed on BiPAP. Patient apparently has had violent and delirious reaction to IV steroid this was avoided on her readmission subsequently placed on inhaled corticosteroid budesonide in addition to her bronchodilator treatment 2. COPD with acute exacerbation; treatment as discussed above 3. Chronically elevated troponin from patient's ischemia 4. Chronic hypoxic respiratory failure on home oxygen 5. Essential hypertension-blood pressure controlled, home medications continued with dose adjustment as needed 6. Chronic back pain 7. Anxiety disorder 8. Morbid obesity with BMI of40: Weight loss advised 9. Suspected sleep apnea patient undergo subsequent evaluation as outpatient with a sleep study 10. DVT prophylaxis SC Lovenox Code Visit Inpatient E&M: 18819 Init Hosp L3
--- NOTE | 2019-04-03 14:26 | NURSING ---
PCU RESP FAILURE KITTOE
[2019-04-03 15:36] LABS: Bedside Glucose 190 mg/dL (70-110)
--- NOTE | 2019-04-03 17:49 | CPS ---
Critical ABG given to Dr Chavarria.
[2019-04-03] MEDS: Budesonide Respules 0.5 MG/2 ML AMPUL.NEB. INHALATION (18:33)
[2019-04-03] MEDS: Insulin Lispro 100 UNIT/ML INSULN.PEN SQ (21:42)
[2019-04-03 21:51] LABS: Bedside Glucose 244 mg/dL (70-110)
[2019-04-03] MEDS: Acetaminophen 325 MG Tablet 650 MG PO (23:16)
--- NOTE | 2019-04-03 23:19 | CPS ---
Pt. found with BiPAP mask off. Pt. took off mask because of discomfort. Put on 6L NC while RN gives pain medication. RN aware that patient was placed on 6L NC.
--- NOTE | 2019-04-03 23:33 | NURSING ---
PT AWAKE AND ASKING TO USE THE RESTROOM. STEADY GAIT WITH STANDBY ASSIST, PT NOTED TO BE SLIGHTLY SOB WITH AMBULATION ON 6L N/C. CHECKED PULSE OX AND NOTED AT 94%, 6L N/C. PT C/O ALL OVER BACK PAIN. MEDICATED WITH TYLENOL. PT REQUESTING MEAL TRAY. VICE PRESIDENT PLANNING MEAL TRAY PREPARED BY CABIN MAN. PT ALERT X 3 AND FOLLOWS ALL COMMANDS AT THIS TIME.
[2019-04-04] VITALS (22 sets, daily range): BP systolic 131–155; BP diastolic 69–85; PULSE 63–100; RESP 12–30; TEMP 36.6–37.1; O2SAT 92–96
[2019-04-04] MEDS: Ipratropium/Albuterol Sulfate 3 ML AMPUL.NEB INHALATION ×5 (00:18→18:54)
--- NOTE | 2019-04-04 00:36 | CPS ---
Addendum entered and electronically signed by Aden Lee 04/04/19 00:37: Original Note: Pt. requested to come off BiPAP. Breathing is non-labored and patient up and alert. Discussed with patient importance of wearing BiPAP to manage CO2 levels. Patient understands. Will monitor patient and encourage wearing BiPAP tonight. Is currently on 6L NC SpO2 was between 93-96%.
[2019-04-04] MEDS: oxyCODONE 5 MG Tablet PO ×4 (04:00→20:42)
[2019-04-04 05:52] LABS: Absolute Lymphocyte Count 1.25 X10^3/ul (0.83-4.51); Absolute Neutrophil Count 8.1 X10^3/uL (2.0-7.7); Basophil# 0.01 X10^3/uL; Basophil% 0.1 % (0-1); Eosinophil# 0.02 X10^3/uL; Eosinophils% 0.2 % (0-5); Hemoglobin 16.2 g/dl (12.0-15.0); Lymphocyte # 1.25 X10^3/ul (4.0); Lymphocyte % 11.6 % (19-41); Mean Corp Hgb Conc 31.2 g/gl (32-36); Mean Corpuscular Hgb 27.8 pg (27.0-32.0); Mean Corpuscular Volume 89.3 fL (81-99); Mean Platelet Vol. 11.1 fl (6.2-12.0); Monocyte# 1.33 X10^3/uL; Monocyte% 12.4 % (0-10); Neutrophil # 8.13 X10^3/uL (2.7-7.7); Neutrophil % 75.5 % (47-70); Platelet Count 340 K/mm3 (150-450); RBC Distribution Width CV 14.6 % (11.6-14.6); RBC Distribution Width SD 47.8 fl (35.1-43.9); Red Blood Count 5.82 M/mm3 (4.2-5.4); White Blood Count 10.8 K/mm3 (4.4-11.0)
[2019-04-04 05:57] LABS: Anion Gap 8 (5-15); BUN 18 mg/dL (7-18); Calcium,Total 8.8 mg/dL (8.5-10.1); Chloride 96 mmol/L (98-107); Creatinine, Serum 0.67 mg/dL (0.55-1.02); EST Glomerular Filtration Rate 101 mL/min (>60); Est Glom Filt Rate - Afr Amer 122 mL/min (>60); Estimated Creatinine Clearance 85.87 ml/min; Glucose 378 mg/dL (74-106); Magnesium 1.9 mg/dL (1.6-2.6); Potassium 4.8 mmol/L (3.5-5.1); Sodium Level 135 mmol/L (136-145)
[2019-04-04 05:58] LABS: POSITIVE COUNT NO; POSITIVE DIFFERENTIAL NO; POSITIVE MORPHOLOGY NO
[2019-04-04] MEDS: Insulin Lispro 100 UNIT/ML INSULN.PEN SQ ×4 (06:47→21:07)
[2019-04-04] MEDS: Budesonide Respules 0.5 MG/2 ML AMPUL.NEB. INHALATION ×2 (06:58→18:54)
[2019-04-04 07:11] LABS: Bedside Glucose 386 mg/dL (70-110)
[2019-04-04] MEDS: Pantoprazole Sodium 20 MG Tablet PO (07:42)
--- NOTE | 2019-04-04 08:27 | NURSING ---
Pt on the phone with her boyfriend, getting upset. Support given, gave pt her sons phone number so she can call him for support.
[2019-04-04] MEDS: Lisinopril 40 MG Tablet PO (09:28)
[2019-04-04] MEDS: amLODIPine 10 MG Tablet PO (09:28)
[2019-04-04] MEDS: hydroCHLOROthiazide 25 MG Tablet PO (09:28)
[2019-04-04] MEDS: guaiFENesin 1,200 MG Tablet 1200 MG PO ×2 (09:28→20:42)
--- NOTE | 2019-04-04 10:00 | PCM.PN.HOSP ---
Subjective: Patient is a 48-year-old lady with history of advanced COPD and asthma recent multiple readmissions for COPD exacerbation presented with increasing shortness of breath patient was placed on noninvasive ventilation BiPAP admitted to monitored bed for subsequent management Objective: GENERAL: Appears dyspneic at rest HEENT: Atraumatic; moist oral mucosa EYES; Anicteric, Normal Conjunctiva NECK; supple, normal thyroid, RESPIRATORY: Diminished to auscultation bilaterally, with some wheezes CARDIOVASCULAR: Regular S1 S2, no audible murmurs GI: soft, non-tender, normoactive bowel sounds, : No Renal angle tenderness; EXTREMITIES: No edema, no clubbing, MUSCULOSKELETAL: No Joint Tenderness; NEURO: no lateralizing signs. SKIN: No Rash PSYCH; Normal affect Vitals/I&O's: Vital Signs Temp Pulse Resp BP Pulse Ox 98.6 F 89 20 H 140/74 H 96 04/04/19 06:41 04/04/19 08:44 04/04/19 08:44 04/04/19 06:41 04/04/19 08:44 Oxygen Flow Rate (L/min) 6 Oxygen Delivery Method Nasal Cannula Weight: 102.4 kg Body Mass Index (BMI) 39.9 Intake and Output for Last 24 Hours 04/02/19 04/03/19 04/04/19 23:59 23:59 23:59 Intake Total 600 / 600 Output Total 1950 / 1950 Balance -1350 / -1350 Laboratory Results 04/03/19 12:30: WBC 12.6 H, RBC 6.10 H, Hgb 16.7 H, Hct 56.1 H, MCV 92.0, MCH 27.4, MCHC 29.8 L, RDW 14.6, RDW Differential 48.3 H, Plt Count 364, MPV 10.5, Immature Gran % (Auto) 0.200, Neut % (Auto) 80.3 H, Lymph % (Auto) 9.9 L, [place] % (Auto) 8.1, Eos % (Auto) 1.3, Baso % (Auto) 0.2, Absolute Neuts (auto) 10.1 H, Absolute Lymphs (auto) 1.25, Total Counted Not Reportable 04/03/19 12:30: Sodium 137, Potassium 4.3, Chloride 96 L, Carbon Dioxide 40.0 H, Anion Gap 1 L, BUN 8, Creatinine 0.49 L, Estim Creat Clear Calc 117.41, Est GFR (MDRD) Af Amer 175, Est GFR (MDRD) Non-Af 144, BUN/Creatinine Ratio 16.4, Glucose 172 H, Calcium 9.2, Troponin I 0.049 H 04/03/19 12:59: Specimen Type ART, Sample Site R Radial, pH 7.31 L, Bicarbonate Actual 41.3 H, POC Total CO2 44, Base Excess 15 H, O2 Saturation 93 L, O2 % 35, ABG pCO2 82.2 H*, ABG pO2 77, Baudilio Test POS, Respiration Rate 12, O2 Delivery Device Bi / C PAP, EPAP 8, IPAP 14, Blood Gas Notified Whom ED , Blood Gas Notified Time 1257 04/03/19 15:30: POC Glucose 190 H 04/03/19 21:29: POC Glucose 244 H 04/04/19 04:48: Sodium 135 L, Potassium 4.8, Chloride 96 L, Carbon Dioxide 31.0, Anion Gap 8, BUN 18, Creatinine 0.67, Estim Creat Clear Calc 85.87, Est GFR (MDRD) Af Amer 122, Est GFR (MDRD) Non-Af 101, BUN/Creatinine Ratio 27.0 H, Glucose 378 H, Calcium 8.8, Magnesium 1.9 04/04/19 04:48: WBC 10.8, RBC 5.82 H, Hgb 16.2 H, Hct 52.0 H, MCV 89.3, MCH 27.8, MCHC 31.2 L, RDW 14.6, RDW Differential 47.8 H, Plt Count 340, MPV 11.1, Immature Gran % (Auto) 0.200, Neut % (Auto) 75.5 H, Lymph % (Auto) 11.6 L, [place] % (Auto) 12.4 H, Eos % (Auto) 0.2, Baso % (Auto) 0.1, Absolute Neuts (auto) 8.1 H, Absolute Lymphs (auto) 1.25, Total Counted Not Reportable 04/04/19 06:45: POC Glucose 386 H Current Medications Acetaminophen (Tylenol) 650 mg PO Q6H PRN PRN PRN Reason: Mild Pain (1-3)/Temp > 100.7 F Last Admin: 04/03/19 23:16 Dose: 650 mg Al Hydroxide/Mg Hydroxide (Mylanta Ii) 30 ml PO Q6H PRN PRN PRN Reason: Gastric Burning Albuterol Sulfate (Ventolin Aerosols) 2.5 mg INHALATION Q4H PRN PRN PRN Reason: WHEEZING Albuterol/Ipratropium (Duoneb) 3 ml INHALATION 4X/DAY COUNTS INCLUDE 234 BEDS AT THE [facility] Last Admin: 04/04/19 06:58 Dose: 3 ml Amlodipine Besylate (Norvasc) 10 mg PO DAILY COUNTS INCLUDE 234 BEDS AT THE [facility] Last Admin: 04/04/19 09:28 Dose: 10 mg Budesonide (Pulmicort Aerosol) 0.5 mg INHALATION BID.RT COUNTS INCLUDE 234 BEDS AT THE [facility] Last Admin: 04/04/19 06:58 Dose: 0.5 mg Dextrose (D50w Syringe) 0 gm IV X1 PRN; Protocol PRN Reason: Hypoglycemia Enoxaparin Sodium (Lovenox) 40 mg SC DAILY@1000 COUNTS INCLUDE 234 BEDS AT THE [facility] Last Admin: 04/04/19 09:29 Dose: Not Given Glucagon () 1 mg IM .X1 PRN PRN Reason: Hypoglycemia Guaifenesin (Mucinex) 1,200 mg PO BID COUNTS INCLUDE 234 BEDS AT THE [facility] Last Admin: 04/04/19 09:28 Dose: 1,200 mg Hydrochlorothiazide (Hctz) 25 mg PO DAILY COUNTS INCLUDE 234 BEDS AT THE [facility] Last Admin: 04/04/19 09:28 Dose: 25 mg Insulin Glargine (Lantus (Bkc)) 35 units SC 1100 [place] Insulin Human Lispro (Humalog Kwikpen (Bkc)) 0 unit SQ ACHS COUNTS INCLUDE 234 BEDS AT THE [facility]; Protocol Last Admin: 04/04/19 06:47 Dose: 10 units Lisinopril (Zestril) 40 mg PO DAILY COUNTS INCLUDE 234 BEDS AT THE [facility] Last Admin: 04/04/19 09:28 Dose: 40 mg Magnesium Hydroxide (Milk Of Magnesia) 30 ml PO DAILY PRN PRN PRN Reason: Constipation Melatonin (Melatonin) 3 mg PO QHS PRN PRN PRN Reason: INSOMNIA Ondansetron HCl (Zofran) 4 mg IV Q8H PRN PRN PRN Reason: NAUSEA/VOMITING Oxycodone HCl (Oxyir) 5 mg PO Q4H PRN PRN PRN Reason: MOD-SEVERE PAIN (4-10/10) Last Admin: 04/04/19 08:25 Dose: 5 mg Pantoprazole Sodium (Protonix) 20 mg PO BREAKFAST COUNTS INCLUDE 234 BEDS AT THE [facility] Last Admin: 04/04/19 07:42 Dose: 20 mg Promethazine HCl (Phenergan) 25 mg IM Q6H PRN PRN PRN Reason: Breakthrough nausea/vomiting Sodium Chloride () 5 - 15 ml IV UD PRN PRN Reason: SALINE FLUSH Medical Necessity - Tobacco Use Smoking Status: Former smoker Assessment/Plan All Active Problems (Last Reviewed 04/03/19 @ 14:16 by Melquiades Cheng MD) Acute respiratory failure with hypoxia (Acute) Elevated troponin (Acute) Acute respiratory failure with hypoxia and hypercapnia (Acute) History of tubal ligation (Resolved) History of section (Resolved) COPD with acute exacerbation (Acute) Hypertensive urgency (Ruled-out) Otitis media (Ruled-out) Tobacco abuse (Resolved) Patient is a 48-year-old lady with history of advanced COPD and asthma recent multiple readmissions for COPD exacerbation presented with increasing shortness of breath 1. Acute hypercapnic and hypoxic respiratory failure secondary to COPD with acute exacerbation patient has been admitted to monitored bed for management of patient was placed on BiPAP. Patient apparently has had violent and delirious reaction to IV steroid this was avoided on her readmission subsequently placed on inhaled corticosteroid budesonide in addition to her bronchodilator treatment 2. COPD with acute exacerbation; treatment as discussed above 3. Chronically elevated troponin from patient's ischemia 4. Chronic hypoxic respiratory failure on home oxygen 5. Essential hypertension-blood pressure controlled, home medications continued with dose adjustment as needed 6. Chronic back pain 7. Anxiety disorder 8. Morbid obesity with BMI of40: Weight loss advised 9. Suspected sleep apnea patient undergo subsequent evaluation as outpatient with a sleep study 10. DVT prophylaxis SC Lovenox Disposition plan is for patient to be discharged home on 04/05/2019 for her to follow-up with Danni Bahena with pulmonology on 04/05/2019 0730 Code Visit Inpatient E&M: 40832 Subs Hosp L3
[2019-04-04 11:06] LABS: Bedside Glucose 307 mg/dL (70-110)
[2019-04-04 13:06] LABS: BUP Internal Control LINE = VALID (VALID)
[2019-04-04 13:07] LABS: Buprenorphine Drug Screen Negative (<10 ng/mL)
[2019-04-04 16:21] LABS: Bedside Glucose 336 mg/dL (70-110)
[2019-04-04 21:26] LABS: Bedside Glucose 323 mg/dL (70-110)
[2019-04-05] VITALS (19 sets, daily range): BP systolic 120–139; BP diastolic 73–80; PULSE 87–112; RESP 12–22; TEMP 36.7–37.2; O2SAT 93–97
[2019-04-05 06:25] LABS: Anion Gap 6 (5-15); BUN 15 mg/dL (7-18); BUN/Creat Ratio 28.2 RATIO (10-20); Calcium,Total 8.6 mg/dL (8.5-10.1); Chloride 102 mmol/L (98-107); Creatinine, Serum 0.53 mg/dL (0.55-1.02); EST Glomerular Filtration Rate 131 mL/min (>60); Est Glom Filt Rate - Afr Amer 158 mL/min (>60); Estimated Creatinine Clearance 108.55 ml/min; Glucose 156 mg/dL (74-106); Potassium 4.5 mmol/L (3.5-5.1); Sodium Level 140 mmol/L (136-145)
[2019-04-05 06:31] LABS: Absolute Lymphocyte Count 2.38 X10^3/ul (0.83-4.51); Absolute Neutrophil Count 4.1 X10^3/uL (2.0-7.7); Basophil# 0.08 X10^3/uL; Eosinophil# 0.13 X10^3/uL; Eosinophils% 1.7 % (0-5); Hematocrit 52.3 % (37-47); Hemoglobin 15.8 g/dl (12.0-15.0); Lymphocyte # 2.38 X10^3/ul (4.0); Lymphocyte % 30.4 % (19-41); Mean Corp Hgb Conc 30.2 g/gl (32-36); Mean Corpuscular Volume 92.6 fL (81-99); Mean Platelet Vol. 11.3 fl (6.2-12.0); Monocyte# 1.16 X10^3/uL; Monocyte% 14.8 % (0-10); Neutrophil # 4.05 X10^3/uL (2.7-7.7); Neutrophil % 51.8 % (47-70); Platelet Count 220 K/mm3 (150-450); RBC Distribution Width CV 15.2 % (11.6-14.6); Red Blood Count 5.65 M/mm3 (4.2-5.4); White Blood Count 7.8 K/mm3 (4.4-11.0)
[2019-04-05] MEDS: Insulin Lispro 100 UNIT/ML INSULN.PEN SQ ×4 (06:35→21:10)
[2019-04-05 06:45] LABS: POSITIVE COUNT NO; POSITIVE DIFFERENTIAL NO; POSITIVE MORPHOLOGY NO
[2019-04-05] MEDS: Budesonide Respules 0.5 MG/2 ML AMPUL.NEB. INHALATION (06:46)
[2019-04-05] MEDS: Ipratropium/Albuterol Sulfate 3 ML AMPUL.NEB INHALATION ×4 (06:46→18:52)
[2019-04-05 07:06] LABS: Bedside Glucose 162 mg/dL (70-110)
[2019-04-05] MEDS: Enoxaparin 40 MG/0.4 ML Syringe SC (08:30)
[2019-04-05] MEDS: Pantoprazole Sodium 20 MG Tablet PO (08:31)
[2019-04-05] MEDS: Lisinopril 40 MG Tablet PO (08:31)
[2019-04-05] MEDS: hydroCHLOROthiazide 25 MG Tablet PO (08:31)
[2019-04-05] MEDS: guaiFENesin 1,200 MG Tablet 1200 MG PO ×2 (08:31→21:10)
[2019-04-05] MEDS: amLODIPine 10 MG Tablet PO (08:31)
--- NOTE | 2019-04-05 10:39 | CASEMGMT ---
Patient was supposed to be seen by Behavioral Health last visit. However, patient was being discharged and would not wait around. DIMITRY called Sanjay with Behavioral Health and asked if he could see her again. He will be over this afternoon. Vanessa MONTEMAYOR
[2019-04-05 11:26] LABS: Bedside Glucose 290 mg/dL (70-110)
[2019-04-05] MEDS: oxyCODONE 5 MG Tablet PO ×2 (13:49→21:15)
--- NOTE | 2019-04-05 14:11 | CASEMGMT ---
Dr. Robbins would like to do overnight trending pulse tonight for pt and then discharge tomorrow. Pt had appt scheduled with pulmonology at 0730 tomorrow am. Call to pulm office and appt switched to 1015 on 04/06/19 at [address] time [address] Dr. Robbins aware and states that he will see pt first and get her discharged so that she can go directly to pul appt. Appt updated in pt's chart already by pulm office. Tatiana, supercharger repair supervisor, aware of all at this time, voices understanding. Glenroy RN CM
--- NOTE | 2019-04-05 14:45 | CASEMGMT ---
Readmission chart review: Pt admitted 03/12-03/18/19 for acute resp failure/COPD, admitted 03/30-04/02/19 for resp failure, and then readmitted 04/03/19 for respiratory failure again. Pt does not currently have a bipap/cpap at home and has been placed at the top of the sleep center wait list as they are booked for the entire month of March. Pt has f/u appt with pulmonology 04/06/19 at 1015 and will go directly there once discharged from PCU. Pt also has f/u with Dr. Melton on 04/07/19. Behavioral Health did meet with pt and stressed medication/lifestyle compliance as well. CM to follow for any further discharge planning/needs. Glenroy ROACH CM
--- NOTE | 2019-04-05 14:47 | NURSING ---
MELANIE CALLES REPORTED TO THIS NURSE THAT PATIENT IS C/O SOB AND FEELS HER OXYGEN IS LOW. IT WAS REPORTED TO THIS NURSE THAT THE PATIENT WAS UP WALKING TO THE VENDING MACHINE WITHOUT HER OXYGEN ON. THIS NURSE WENT TO PATIENTS ROOM, WHERE PATIENT WAS SITTING IN THE CHAIR, STILL WITH NO OXYGEN ON. THIS RN INSTRUCTED PATIENT TO PUT HER OXYGEN BACK ON. 02 SATURATION 94% ON 4L. THE PATIENT TOLD THIS NURSE, SHE THOUGHT WE WOULD WANT TO KNOW WHAT SHE DOES WITHOUT OXYGEN ON. THIS RN INSTRUCTED PATIENT THAT THE NURSE WILL DO THE TRIAL IF ORDERED, AND THAT SHE NEEDS TO CONTINUE TO WEAR HER OXYGEN. PATIENT ACKNOWLEDGED AND AGREED TO WEAR THE OXYGEN AT REST AND WITH ACTIVITY.
[2019-04-05] MEDS: predniSONE 20 MG Tablet 40 MG PO (14:56)
--- NOTE | 2019-04-05 15:15 | BH.NOTE ---
BH: Inpatient Note - Notes Behavioral Health Inpatient Note: 04/05/19 15:15 Referral to [facility] from social work due to anxiety possibly exacerbating medical issues. Met with pt in her room. Pt was pleasant and cooperative. Denies any suicidal ideations, plan, or intent. Endorses mild anxiety and depression mainly related to respiratory issues. Reports chronic respiratory issues however recent exacerbation with no known cause. Some insight that anxiety plays a role in breathing problems. Depression related to numerous hospitalizations and some loss of pleasurable activity related to medical issues. Reports strong support. Continues to be active at home. We discussed outpatient treatment however pt declined. Gave list of resources in the area. We discussed challenges with treatment compliance for several minutes. Pt was able to identify several strategies to ensure and that she was compliant with medications.
--- NOTE | 2019-04-05 15:31 | PCM.PN.HOSP ---
Subjective: Doing well, states that she is breathing better than when she came in. She did use her BiPAP for a few hours last night but could not tolerate it on the whole night. Vitals/I&O's: Vital Signs Temp Pulse Resp BP Pulse Ox 98.0 F 96 18 120/80 94 04/05/19 13:45 04/05/19 13:45 04/05/19 13:45 04/05/19 13:45 04/05/19 13:45 Oxygen Flow Rate (L/min) 4 Oxygen Delivery Method Nasal Cannula Weight: 224 lb 13.944 oz Body Mass Index (BMI) 39.9 Intake and Output for Last 24 Hours 04/03/19 04/04/19 04/05/19 23:59 23:59 23:59 Intake Total 1320 / 1320 1430 / 1430 Output Total 1949 / 1949 2140 / 2140 Balance -630 / -630 -710 / -710 General: Alert, Oriented x3, Cooperative, No apparent distress HEENT: Atraumatic, PERRLA, EOMI, Normocephalic Oral: Moist Mucosa Neck: Supple, No JVD Lungs: Normal air movement, Diminished, Rhonchi, Wheezes Cardiovascular: Regular rate, Regular Rhythm, Normal S1, Normal S2, No murmurs Abdomen: Soft, Non Tender, Non-Distended, No Hepato-splenomegaly Extremities: No edema, Capillary Refill Less than 3 Seconds Skin: No rashes, No breakdown Neurological: Neuro grossly intact, Sensory exam intact to light touch and pain Psych/Mental Status: Normal Affect, Appropriate Laboratory Results 04/04/19 16:01: POC Glucose 336 H 04/04/19 21:05: POC Glucose 323 H 04/05/19 05:45: Sodium 140, Potassium 4.5, Chloride 102, Carbon Dioxide 32.0, Anion Gap 6, BUN 15, Creatinine 0.53 L, Estim Creat Clear Calc 108.55, Est GFR (MDRD) Af Amer 158, Est GFR (MDRD) Non-Af 131, BUN/Creatinine Ratio 28.2 H, Glucose 156 H, Calcium 8.6 04/05/19 05:45: WBC 7.8, RBC 5.65 H, Hgb 15.8 H, Hct 52.3 H, MCV 92.6, MCH 28.0, MCHC 30.2 L, RDW 15.2 H, RDW Differential 51.0 H, Plt Count 220, MPV 11.3, Immature Gran % (Auto) 0.300, Neut % (Auto) 51.8, Lymph % (Auto) 30.4, [place] % (Auto) 14.8 H, Eos % (Auto) 1.7, Baso % (Auto) 1.0, Absolute Neuts (auto) 4.1, Absolute Lymphs (auto) 2.38, Total Counted Not Reportable 04/05/19 06:21: POC Glucose 162 H 04/05/19 11:19: POC Glucose 290 H Current Medications Acetaminophen (Tylenol) 650 mg PO Q6H PRN PRN PRN Reason: Mild Pain (1-3)/Temp > 100.7 F Last Admin: 04/03/19 23:16 Dose: 650 mg Al Hydroxide/Mg Hydroxide (Mylanta Ii) 30 ml PO Q6H PRN PRN PRN Reason: Gastric Burning Albuterol Sulfate (Ventolin Aerosols) 2.5 mg INHALATION Q4H PRN PRN PRN Reason: WHEEZING Albuterol/Ipratropium (Duoneb) 3 ml INHALATION 4X/DAY [facility] Last Admin: 04/05/19 15:28 Dose: 3 ml Amlodipine Besylate (Norvasc) 10 mg PO DAILY [facility] Last Admin: 04/05/19 08:31 Dose: 10 mg Dextrose (D50w Syringe) 0 gm IV X1 PRN; Protocol PRN Reason: Hypoglycemia Enoxaparin Sodium (Lovenox) 40 mg SC DAILY@1000 [facility] Last Admin: 04/05/19 08:30 Dose: 40 mg Glucagon () 1 mg IM .X1 PRN PRN Reason: Hypoglycemia Guaifenesin (Mucinex) 1,200 mg PO BID [facility] Last Admin: 04/05/19 08:31 Dose: 1,200 mg Hydrochlorothiazide (Hctz) 25 mg PO DAILY [facility] Last Admin: 04/05/19 08:31 Dose: 25 mg Insulin Glargine (Lantus (Bkc)) 35 units SC 1100 [facility] Last Admin: 04/05/19 11:58 Dose: 35 u Insulin Human Lispro (Humalog Kwikpen (Bk)) 0 unit SQ ACHS [facility]; Protocol Last Admin: 04/05/19 11:58 Dose: 6 units Lisinopril (Zestril) 40 mg PO DAILY [facility] Last Admin: 04/05/19 08:31 Dose: 40 mg Magnesium Hydroxide (Milk Of Magnesia) 30 ml PO DAILY PRN PRN PRN Reason: Constipation Melatonin (Melatonin) 3 mg PO QHS PRN PRN PRN Reason: INSOMNIA Ondansetron HCl (Zofran) 4 mg IV Q8H PRN PRN PRN Reason: NAUSEA/VOMITING Oxycodone HCl (Oxyir) 5 mg PO Q4H PRN PRN PRN Reason: MOD-SEVERE PAIN (4-10/10) Last Admin: 04/05/19 13:49 Dose: 5 mg Pantoprazole Sodium (Protonix) 20 mg PO BREAKFAST [facility] Last Admin: 04/05/19 08:31 Dose: 20 mg Prednisone () 40 mg PO DAILY@0800 [facility] Last Admin: 04/05/19 14:56 Dose: 40 mg Promethazine HCl (Phenergan) 25 mg IM Q6H PRN PRN PRN Reason: Breakthrough nausea/vomiting Sodium Chloride () 5 - 15 ml IV UD PRN PRN Reason: SALINE FLUSH Medical Necessity - Tobacco Use Smoking Status: Former smoker Assessment/Plan All Active Problems (Last Reviewed 04/03/19 @ 14:16 by Melquiades Cheng MD) Acute respiratory failure with hypoxia (Acute) Elevated troponin (Acute) Acute respiratory failure with hypoxia and hypercapnia (Acute) History of tubal ligation (Resolved) History of section (Resolved) COPD with acute exacerbation (Acute) Hypertensive urgency (Ruled-out) Otitis media (Ruled-out) Tobacco abuse (Resolved) 1. Acute hypercapnic and hypoxic respiratory failure secondary to COPD with acute exacerbation/chronic hypoxic respiratory failure -She was recently admitted to the ICU last week and was intubated, she was receiving steroids and removed her endotracheal tube while on the steroids due to delirium and was discharged on Friday. -She was started on BiPAP and improved significantly wearing it at night. She is on continuous oxygen 2 L nasal cannula at home -She states that she only has a delirious reactions to high-dose steroids therefore we will start her on low-dose 40 mg a day of prednisone -Continue with her inhaled budesonide -She has a pulmonology appointment tomorrow morning at 1015 2. Troponin elevation/HTN -Appears to be chronic from her baseline ischemia -Continue with her home blood pressure medications -SBP is stable 3. Anxiety -Stable -Continue with home medications 4. Morbid obesity -BMI of 40 -Coral weight loss with exercise and dietary changes 5. DM 2 -Continue with her long-acting insulin of 35 units daily -Continue with sliding scale insulin -Monitor blood glucose with Accu-Cheks DVT: Lovenox Code Visit Inpatient E&M: 55063 Subs Hosp L2
--- NOTE | 2019-04-05 15:38 | PN_ITS ---
Subjective: Doing well, states that she is breathing better than when she came in. She did use her BiPAP for a few hours last night but could not tolerate it on the whole night. Vitals/I&O's: Vital Signs Temp Pulse Resp BP Pulse Ox 98.0 F 96 18 120/80 94 04/05/19 13:45 04/05/19 13:45 04/05/19 13:45 04/05/19 13:45 04/05/19 13:45 Oxygen Flow Rate (L/min) 4 Oxygen Delivery Method Nasal Cannula Weight: 224 lb 13.944 oz Body Mass Index (BMI) 39.9 Intake and Output for Last 24 Hours 04/03/19 04/04/19 04/05/19 23:59 23:59 23:59 Intake Total 1320 / 1320 1430 / 1430 Output Total 1949 / 1949 2140 / 2140 Balance -630 / -630 -710 / -710 General: Alert, Oriented x3, Cooperative, No apparent distress HEENT: Atraumatic, PERRLA, EOMI, Normocephalic Oral: Moist Mucosa Neck: Supple, No JVD Lungs: Normal air movement, Diminished, Rhonchi, Wheezes Cardiovascular: Regular rate, Regular Rhythm, Normal S1, Normal S2, No murmurs Abdomen: Soft, Non Tender, Non-Distended, No Hepato-splenomegaly Extremities: No edema, Capillary Refill Less than 3 Seconds Skin: No rashes, No breakdown Neurological: Neuro grossly intact, Sensory exam intact to light touch and pain Psych/Mental Status: Normal Affect, Appropriate Laboratory Results 04/04/19 16:01: POC Glucose 336 H 04/04/19 21:05: POC Glucose 323 H 04/05/19 05:45: Sodium 140, Potassium 4.5, Chloride 102, Carbon Dioxide 32.0, An ion Gap 6, BUN 15, Creatinine 0.53 L, Estim Creat Clear Calc 108.55, Est GFR (MDRD) Af Amer 158, Est GFR (MDRD) Non-Af 131, BUN/Creatinine Ratio 28.2 H, Glucose 156 H, Calcium 8.6 04/05/19 05:45: WBC 7.8, RBC 5.65 H, Hgb 15.8 H, Hct 52.3 H, MCV 92.6, MCH 28.0, MCHC 30.2 L, RDW 15.2 H, RDW Differential 51.0 H, Plt Count 220, MPV 11.3, Immature Gran % (Auto) 0.300, Neut % (Auto) 51.8, Lymph % (Auto) 30.4, [place] % (Auto) 14.8 H, Eos % (Auto) 1.7, Baso % (Auto) 1.0, Absolute Neuts (auto) 4.1, Absolute Lymphs (auto) 2.38, Total Counted Not Reportable 04/05/19 06:21: POC Glucose 162 H 04/05/19 11:19: POC Glucose 290 H Current Medications Acetaminophen (Tylenol) 650 mg PO Q6H PRN PRN PRN Reason: Mild Pain (1-3)/Temp > 100.7 F Last Admin: 04/03/19 23:16 Dose: 650 mg Al Hydroxide/Mg Hydroxide (Mylanta Ii) 30 ml PO Q6H PRN PRN PRN Reason: Gastric Burning Albuterol Sulfate (Ventolin Aerosols) 2.5 mg INHALATION Q4H PRN PRN PRN Reason: WHEEZING Albuterol/Ipratropium (Duoneb) 3 ml INHALATION 4X/DAY [facility] Last Admin: 04/05/19 15:28 Dose: 3 ml Amlodipine Besylate (Norvasc) 10 mg PO DAILY [facility] Last Admin: 04/05/19 08:31 Dose: 10 mg Dextrose (D50w Syringe) 0 gm IV X1 PRN; Protocol PRN Reason: Hypoglycemia Enoxaparin Sodium (Lovenox) 40 mg SC DAILY@1000 [facility] Last Admin: 04/05/19 08:30 Dose: 40 mg Glucagon () 1 mg IM .X1 PRN PRN Reason: Hypoglycemia Guaifenesin (Mucinex) 1,200 mg PO BID [facility] Last Admin: 04/05/19 08:31 Dose: 1,200 mg Hydrochlorothiazide (Hctz) 25 mg PO DAILY [facility] Last Admin: 04/05/19 08:31 Dose: 25 mg Insulin Glargine (Lantus (Bk)) 35 units SC 1100 [facility] Last Admin: 04/05/19 11:58 Dose: 35 u Insulin Human Lispro (Humalog Kwikpen (Bk)) 0 unit SQ ACHS [facility]; Protocol Last Admin: 04/05/19 11:58 Dose: 6 units Lisinopril (Zestril) 40 mg PO DAILY [facility] Last Admin: 04/05/19 08:31 Dose: 40 mg Magnesium Hydroxide (Milk Of Magnesia) 30 ml PO DAILY PRN PRN PRN Reason: Constipation Melatonin (Melatonin) 3 mg PO QHS PRN PRN PRN Reason: INSOMNIA Ondansetron HCl (Zofran) 4 mg IV Q8H PRN PRN PRN Reason: NAUSEA/VOMITING Oxycodone HCl (Oxyir) 5 mg PO Q4H PRN PRN PRN Reason: MOD-SEVERE PAIN (4-10/10) Last Admin: 04/05/19 13:49 Dose: 5 mg Pantoprazole Sodium (Protonix) 20 mg PO BREAKFAST [facility] Last Admin: 04/05/19 08:31 Dose: 20 mg Prednisone () 40 mg PO DAILY@0800 [facility] Last Admin: 04/05/19 14:56 Dose: 40 mg Promethazine HCl (Phenergan) 25 mg IM Q6H PRN PRN PRN Reason: Breakthrough nausea/vomiting Sodium Chloride () 5 - 15 ml IV UD PRN PRN Reason: SALINE FLUSH Medical Necessity - Tobacco Use Smoking Status: Former smoker Assessment/Plan All Active Problems (Last Reviewed 04/03/19 @ 14:16 by Melquiades Cheng MD) Acute respiratory failure with hypoxia (Acute) Elevated troponin (Acute) Acute respiratory failure with hypoxia and hypercapnia (Acute) History of tubal ligation (Resolved) History of section (Resolved) COPD with acute exacerbation (Acute) Hypertensive urgency (Ruled-out) Otitis media (Ruled-out) Tobacco abuse (Resolved) 1. Acute hypercapnic and hypoxic respiratory failure secondary to COPD with acute exacerbation/chronic hypoxic respiratory failure -She was recently admitted to the ICU last week and was intubated, she was receiving steroids and removed her endotracheal tube while on the steroids due to delirium and was discharged on Friday. -She was started on BiPAP and improved significantly wearing it at night. She is on continuous oxygen 2 L nasal cannula at home -She states that she only has a delirious reactions to high-dose steroids therefore we will start her on low-dose 40 mg a day of prednisone -Continue with her inhaled budesonide -She has a pulmonology appointment tomorrow morning at 1015 2. Troponin elevation/HTN -Appears to be chronic from her baseline ischemia -Continue with her home blood pressure medications -SBP is stable 3. Anxiety -Stable -Continue with home medications 4. Morbid obesity -BMI of 40 -Coral weight loss with exercise and dietary changes 5. DM 2 -Continue with her long-acting insulin of 35 units daily -Continue with sliding scale insulin -Monitor blood glucose with Accu-Cheks DVT: Lovenox Code Visit Inpatient E&M: 14515 Subs Hosp L2
[2019-04-05 16:55] LABS: Bedside Glucose 322 mg/dL (70-110)
[2019-04-05 22:05] LABS: Bedside Glucose 415 mg/dL (70-110)
[2019-04-05] MEDS: Albuterol 2.5 MG/3 ML VIAL.NEB. INHALATION (22:43)
[2019-04-06] VITALS (7 sets, daily range): BP systolic 136; BP diastolic 75; PULSE 78–120; RESP 12–20; TEMP 36.5; O2SAT 95–97
--- NOTE | 2019-04-06 02:30 | NURSING ---
RN entered room for rounding. Pt was up in bathroom without oxygen or bipap. Pt seems disoriented. Pt directed to chair. Able to answer orientation questions appropriately. Denies confusion. Bipap re-applied. Pt checked and oxygen saturation WNL on bipap at 30% FiO2.
--- NOTE | 2019-04-06 04:40 | RAD_ITS ---
STUDY: X-RAY CHEST REASON FOR EXAM: Female, 48 years old. Drowsiness. Confusion. TECHNIQUE: Single AP portable view of the chest. COMPARISON: 03/31/2019. FINDINGS: The lungs are mildly underexpanded. There is mild atelectasis in the lower lung [place] bilaterally, left greater than right. There is no demonstrated pulmonary infiltrate. There is no demonstrated pleural abnormality. There is borderline cardiomegaly. Normal mediastinum and [place]. Normal visualized pulmonary arteries. Normal visualized aortic arch and descending thoracic aorta. Normal visualized thoracic spine. Normal visualized ribs, clavicles, and shoulders. There is no demonstrated abnormality of the visualized soft tissue structures of the upper abdomen. RAD/Chest 1 View (Portable) IMPRESSION: Borderline heart size. Mild atelectasis in the lower lung crawford. No evidence for acute cardiopulmonary pathology. Electronically Signed: Sidney Parker MD at 5:40 EDT , Service support ,
[2019-04-06 05:06] LABS: Allen Test POS; Base Excess 11 mmol/L (-2 to +2); Bicarbonate 36.2 mmol/L (22-26); Blood Gas Specimen Type ART; EPAP 8; FI02 30; IPAP 14; PO2 108 mmHG (75-100); RR 12; SITE R Radial; SO2 98 % (95-99); Time Given 450; Total Carbon Dioxide 38 mmol/L; pCO2 58.8 mmHg (35-45)
[2019-04-06 05:41] LABS: Absolute Lymphocyte Count 1.89 X10^3/ul (0.83-4.51); Absolute Neutrophil Count 9.1 X10^3/uL (2.0-7.7); Basophil# 0.02 X10^3/uL; Basophil% 0.2 % (0-1); Eosinophil# 0.03 X10^3/uL; Eosinophils% 0.2 % (0-5); Hematocrit 49.8 % (37-47); Hemoglobin 15.5 g/dl (12.0-15.0); Lymphocyte # 1.89 X10^3/ul (4.0); Lymphocyte % 15.1 % (19-41); Mean Corp Hgb Conc 31.1 g/gl (32-36); Mean Corpuscular Hgb 28.2 pg (27.0-32.0); Mean Corpuscular Volume 90.7 fL (81-99); Mean Platelet Vol. 10.8 fl (6.2-12.0); Neutrophil # 9.06 X10^3/uL (2.7-7.7); Neutrophil % 72.3 % (47-70); Platelet Count 361 K/mm3 (150-450); RBC Distribution Width CV 14.6 % (11.6-14.6); RBC Distribution Width SD 48.6 fl (35.1-43.9); Red Blood Count 5.49 M/mm3 (4.2-5.4); White Blood Count 12.5 K/mm3 (4.4-11.0)
[2019-04-06 05:43] LABS: POSITIVE COUNT NO; POSITIVE DIFFERENTIAL NO; POSITIVE MORPHOLOGY NO
[2019-04-06 05:56] LABS: Anion Gap 4 (5-15); BUN 15 mg/dL (7-18); BUN/Creat Ratio 22.8 RATIO (10-20); Chloride 98 mmol/L (98-107); Creatinine, Serum 0.66 mg/dL (0.55-1.02); EST Glomerular Filtration Rate 102 mL/min (>60); Est Glom Filt Rate - Afr Amer 124 mL/min (>60); Estimated Creatinine Clearance 87.17 ml/min; Glucose 225 mg/dL (74-106); Potassium 3.8 mmol/L (3.5-5.1); Sodium Level 139 mmol/L (136-145)
[2019-04-06] MEDS: Ipratropium/Albuterol Sulfate 3 ML AMPUL.NEB INHALATION (06:44)
[2019-04-06 07:05] LABS: Bedside Glucose 195 mg/dL (70-110)
[2019-04-06] MEDS: oxyCODONE 5 MG Tablet PO (07:28)
[2019-04-06] MEDS: Insulin Lispro 100 UNIT/ML INSULN.PEN SQ (07:30)
[2019-04-06] MEDS: Insulin Lispro 100 UNIT/ML INSULN.PEN SC (07:30)
[2019-04-06] MEDS: predniSONE 20 MG Tablet 40 MG PO (07:31)
[2019-04-06] MEDS: Pantoprazole Sodium 20 MG Tablet PO (07:32)
--- NOTE | 2019-04-06 07:56 | DCINST_ITS ---
You will use the following diet at home:: Calorie/Carbohydrate Controlled (specify 1200, 1400, etc) - 1600 calories Your food should be the consistency of: Regular Your liquids should be the consistency of: Regular/Thin Discharge Activity: Return to Normal Activity Call your doctor if you observe: Fever of 101 or Higher, Shortness of breath, Dizziness, Fainting spells, Swelling in the ankles, Chest pain, Increased palpitations (irregular heartbeat) Allergies/Adverse Reactions: Allergies aspirin Allergy (Verified 03/30/19 08:34) Anaphylaxis cyclobenzaprine HCl [From Flexeril] Allergy (Verified 03/30/19 08:34) Rash levofloxacin [From Levaquin] Allergy (Verified 03/30/19 08:34) Rash naproxen [From Naprosyn] Allergy (Verified 03/30/19 08:34) Anaphylaxis bupropion HCl [From Wellbutrin] Adverse Reaction (Verified 03/30/19 08:34) nightmares NIGHTMARES doxycycline Adverse Reaction (Verified 03/30/19 08:34) Diarrhea Medications to take at Discharge Amlodipine [Norvasc] 10 mg PO DAILY 08/13/15 Lisinopril [Zestril] 40 mg PO DAILY 02/11/16 Hydrochlorothiazide [Hctz] 25 mg PO DAILY 10/26/17 Albuterol IH (ProAir) [Proair Hfa] 2 puff INHALATION Q4H PRN PRN #1 inhaler 10/29/17 epinephrine 1 mg/mL injection kit 1 mg IM Q10M PRN #1 ea 11/13/17 Ipratropium/Albuterol Sulfate [Duoneb] 3 ml INHALATION 4X/DAY 03/10/18 Omeprazole 1 tab PO BREAKFAST 06/09/18 Oxycodone [Oxyir] 5 mg PO Q4H PRN PRN 5 Days #14 tablet 06/10/18 Albuterol Aerosols [Ventolin Aerosols] 2.5 mg INHALATION Q4H PRN PRN 03/13/19 Albuterol Sulfate [Ventolin Hfa] 90 mcg INHALATION Q4H PRN 03/13/19 Budesonide/Formoterol 160/4.5 [Symbicort 160/4.5 Mcg Inhaler (SP)] 2 puff INHALATION BID #1 inhaler 03/18/19 Guaifenesin [Mucinex] 1,200 mg PO BID 03/30/19 Tiotropium [place] [Spiriva 18 MCG] 1 puff INHALATION DAILY #2 inhaler 04/02/19 Insulin Glargine,Hum.rec.anlog [Basaglar Kwikpen U-100] 45 unit SQ DAILY #0 04/06/19 Oxygen, Home [Home Oxygen] 4 - 6 lpm NASAL PRN PRN #0 04/06/19 predniSONE tablet 40 mg PO DAILY@0800 #14 tablet 04/06/19 The following prescriptions were given: predniSONE tablet 40 mg PO DAILY@0800 #14 tablet Primary Care Physician: Rita Melton MD [Primary Care Provider] - Please follow up with your Primary Care Physician in: 3-5 days Test Results: Test results from this visit will be discussed in further detail at your follow- up appointment, if applicable. Please Follow Up With: Pulmonology When: Today
--- NOTE | 2019-04-06 08:05 | DS.PCM_ITS ---
Discharge Date and Diagnosis Date of Admission: 04/03/19 Date of Discharge: 04/06/19 - Secondary Discharge Diagnosis Chronic Problems (Last Reviewed 04/03/19 @ 14:16 by Melquiades Cheng MD) Morbid obesity with BMI of 40.0-44.9, adult (Chronic) Hypertension (Chronic) COPD exacerbation (Chronic) Tobacco abuse (Chronic) Hypersomnia (Chronic) Benign essential hypertension (Chronic) Herniated thoracic disc without myelopathy (Chronic) Chronic back pain (Chronic) COPD (Chronic) Asthma (Chronic) GERD (gastroesophageal reflux disease) (Chronic) Obesity (BMI 30-39.9) (Chronic) Diabetes mellitus, type II (Chronic) Hospital Course and Treatment Imaging Results: CXR: IMPRESSION: Nonspecific interstitial prominence right greater than left lung. Could consider atelectasis. Status post extubation. Consults: None Operations: None Procedures: None Summary of Care Provided: Per HPI: The patient is a 48 year old F with history of recent multiple admissions who insisted on being discharged from the hospital a day prior to her readmission presented with shortness of breath. Per patient she did experience worsening shortness of breath after being discharged. She had bumped her oxygen level to 6 L without much improvement was finally brought to the emergency department by family ABGs obtained in the emergency department demonstrated acute hypercapnic respiratory failure she agreed to be placed on BiPAP and subsequently admitted to a monitored bed for further management Hospital Course: 1. Acute hypercapnic and hypoxic respiratory failure secondary to COPD exacerbation/chronic hypoxic respiratory [id number] female with a history of COPD who was recently admitted and intubated in the ICU for hypoxic respiratory failure. At the time she was given high-dose steroids and became violently delirious and attempted pulling out her endotracheal tube. She insisted on being discharged the day prior to her readmission and and when she presented back to the ER she stated that she had increase her oxygen to 6 L at home, and her ABGs showed CO2 retention as well as hypoxemia. She was started on aerosol treatments however they withhold prednisone on account of her becoming delirious previously. In discussion with her she states that she has never been given such high doses of steroids before and that is why she did have a good reaction, otherwise she has been able to tolerate normal doses of prednisone, therefore she was started on 40 mg of prednisone p.o. the day prior to discharge and she feels much better today on the day of discharge. She is down to 4 L nasal cannula which is around her baseline at home. She has a pulmonology appointment today at 1015 and will attempt to discharge her so she can make that appointment. She states that she did not follow-up with any of the previous pulmonology recommendations because she was going on vacation, she is currently on the waiting list for sleep study. This plan was discussed with her and she stated understanding and is in agreement with the plan. 2. Elevated troponin/HTN-her troponin is chronically elevated to this level because of her baseline ischemia, no changes and she denies any chest pain. We will continue with her home blood pressure medications 3. IDDM 2/morbid obesity-she is on a baseline insulin of 35 units daily long- acting, however given the fact that she will be started on steroids will increase this to 45 units daily for the short-term while she is on prednisone and she can return back to her normal 35 units once her steroids are completed. She does have a BMI of 40 and we did discuss with her weight loss with exercise and dietary changes. 4. Her other medical diagnoses were evaluated in her home medications were continued where appropriate Objective: General: Alert, Oriented x3, Cooperative, No apparent distress HEENT: Atraumatic, PERRLA, EOMI, Normocephalic Oral: Moist Mucosa Neck: Supple, No JVD Lungs: Normal air movement, Diminished, Rhonchi, Wheezes improved Cardiovascular: Regular rate, Regular Rhythm, Normal S1, Normal S2, No murmurs Abdomen: Soft, Non Tender, Non-Distended, No Hepato-splenomegaly Extremities: No edema, Capillary Refill Less than 3 Seconds Skin: No rashes, No breakdown Neurological: Neuro grossly intact, Sensory exam intact to light touch and pain Psych/Mental Status: Normal Affect, Appropriate - Physical Exam Vital Signs Temp Pulse Resp BP Pulse Ox 97.7 F L 78 16 136/75 H 97 04/06/19 04:12 04/06/19 04:12 04/06/19 04:12 04/06/19 04:12 04/06/19 04:12 Oxygen Flow Rate (L/min) 4.5 Oxygen Delivery Method Bi-pap Weight: 226 lb 3.108 oz Body Mass Index (BMI) 39.9 Intake and Output for Last 24 Hours 04/04/19 04/05/19 04/06/19 23:59 23:59 23:59 Intake Total 1320 / 1320 5188 / 5188 420 / 420 Output Total 1949 / 1949 2140 / 2140 Balance -630 / -630 3048 / 3048 420 / 420 Laboratory Tests Past 24 Hrs 04/06/19 04/06/19 04/06/19 04:59 05:33 05:33 WBC 12.5 H RBC 5.49 H Hgb 15.5 H Hct 49.8 H MCV 90.7 MCH 28.2 MCHC 31.1 L RDW 14.6 RDW Differential 48.6 H Plt Count 361 MPV 10.8 Immature Gran % (Auto) 0.200 Neut % (Auto) 72.3 H Lymph % (Auto) 15.1 L [place] % (Auto) 12.0 H Eos % (Auto) 0.2 Baso % (Auto) 0.2 Absolute Neuts (auto) 9.1 H Absolute Lymphs (auto) 1.89 Total Counted Not Reportable Specimen Type ART Sample Site R Radial pH 7.40 Bicarbonate Actual 36.2 H POC Total CO2 38 Base Excess 11 H O2 Saturation 98 O2 % 30 ABG pCO2 58.8 H ABG pO2 108 H Baudilio Test POS Respiration Rate 12 O2 Delivery Device Bi / C PAP EPAP 8 IPAP 14 Blood Gas Notified Whom HOSP Blood Gas Notified Time 450 Sodium 139 Potassium 3.8 Chloride 98 Carbon Dioxide 37.0 H Anion Gap 4 L BUN 15 Creatinine 0.66 Estim Creat Clear Calc 87.17 Est GFR (MDRD) Af Amer 124 Est GFR (MDRD) Non-Af 102 BUN/Creatinine Ratio 22.8 H Glucose 225 H Calcium 9.0 POC Glucose 04/06/19 04/05/19 04/05/19 06:53 21:07 16:41 POC Glucose 195 H 415 H 322 H 04/05/19 11:19 POC Glucose 290 H Discharge Activity: Return to Normal Activity Call your doctor if you observe: Fever of 101 or Higher, Shortness of breath, Dizziness, Fainting spells, Swelling in the ankles, Chest pain, Increased palpitations (irregular heartbeat) Home Medications: Medications to take at Discharge Amlodipine [Norvasc] 10 mg PO DAILY 08/13/15 Lisinopril [Zestril] 40 mg PO DAILY 02/11/16 Hydrochlorothiazide [Hctz] 25 mg PO DAILY 12/03/17 Albuterol IH (ProAir) [Proair Hfa] 2 puff INHALATION Q4H PRN PRN #1 inhaler 10/29/17 epinephrine 1 mg/mL injection kit 1 mg IM Q10M PRN #1 ea 11/13/17 Ipratropium/Albuterol Sulfate [Duoneb] 3 ml INHALATION 4X/DAY 03/10/18 Omeprazole 1 tab PO BREAKFAST 06/09/18 Oxycodone [Oxyir] 5 mg PO Q4H PRN PRN 5 Days #14 tablet 06/10/18 Albuterol Aerosols [Ventolin Aerosols] 2.5 mg INHALATION Q4H PRN PRN 03/13/19 Albuterol Sulfate [Ventolin Hfa] 90 mcg INHALATION Q4H PRN 03/13/19 Budesonide/Formoterol 160/4.5 [Symbicort 160/4.5 Mcg Inhaler (SP)] 2 puff INHALATION BID #1 inhaler 03/18/19 Guaifenesin [Mucinex] 1,200 mg PO BID 03/30/19 Tiotropium [place] [Spiriva 18 MCG] 1 puff INHALATION DAILY #2 inhaler 04/02/19 Insulin Glargine,Hum.rec.anlog [Basaglar Kwikpen U-100] 45 unit SQ DAILY #0 04/06/19 Oxygen, Home [Home Oxygen] 4 - 6 lpm NASAL PRN PRN #0 04/06/19 predniSONE tablet 40 mg PO DAILY@0800 #14 tablet 04/06/19 Following Prescrptions Were Given to Patient: predniSONE tablet 40 mg PO DAILY@0800 #14 tablet Primary Care Physician: Rita Melton MD [Primary Care Provider] - Please follow up with your Primary Care Physician in: 3-5 days Please Follow Up With: Pulmonology When: Today Disposition: Home Minutes spent on discharge:: 35 Patient Condition:: Stable Medical Necessity - Tobacco Use Smoking Status: Former smoker Meaningful Use Info Meaningful Use Diagnoses (Choose all that apply): None applicable Code Visit Inpatient E&M: 88452 Disch Hosp
--- NOTE | 2019-04-06 10:24 | NURSING ---
0930 Pt wants to leave has asked 4 times now, support given, offered to take pt over to Pulmonology appt and she refused, pt took 02 off and said she was leaving NOW. Her boyfriend was here previously and was going to get the car, instructed pt on importance of keeping her appt today. Pt states she understands but left the unit without oxygen on.
--- NOTE | 2019-04-07 12:30 | CASEMGMT ---
DOC BOLTON DC PHONE CALL DC DATE: 04/06/19 DC Disposition: Home LACE/STRATA: 06/03 Attempted call to Pt's cell phone. No answer. DOC BOLTON called to Dr. Dupont's office- pt did go to pulmonary appt on discharge yesterday. Imer SOMMERSN DOC ACM
== END 2019-04-06 09:33 | disposition home or self-care (01) | DRG 133 ==
LOC: ED 13:24 → PCU 14:44
PROVIDERS: Hospitalist; Admitting Provider Internal Medicine; Emergency Provider Emergency Medicine; Family Provider Internal Medicine; PCP Internal Medicine; Referring Provider Internal Medicine; Visit Provider Family Medicine
DX: J96.21 Acute and chronic respiratory failure with hypoxia (principal); J44.1 Chronic obstructive pulmonary disease with (acute) exacerbation; Z99.81 Dependence on supplemental oxygen; E66.01 Morbid (severe) obesity due to excess calories; Z68.41 Body mass index [BMI] 40.0-44.9, adult; E11.9 Type 2 diabetes mellitus without complications; G47.30 Sleep apnea, unspecified; I10 Essential (primary) hypertension; R74.8 Abnormal levels of other serum enzymes; G89.29 Other chronic pain; M54.9 Dorsalgia, unspecified; K21.9 Gastro-esophageal reflux disease without esophagitis; Z79.4 Long term (current) use of insulin; Z72.0 Tobacco use
CPT/HCPCS: 36415; 36600; 71045; 80048; 80307; 82803; 82962; 83735; 84484; 85025; 93005; 94002; 94003; 94640; 97802; 99251; 99283; 99406; A4216; G0463

== ENCOUNTER 2019-10-31 03:56 | Inpatient (IN) | payer MEDICAID, SELFPAY ==
[2019-04-06 10:11] VITALS: BMI 42.0
[2019-10-31] VITALS (20 sets, daily range): BP systolic 150–190; BP diastolic 88–129; PULSE 88–106; RESP 18–27; TEMP 36.6–36.9; O2SAT 77–97; BMI 36.6; BMI 43.7
--- NOTE | 2019-10-31 04:23 | RAD_ITS ---
STUDY: X-RAY CHEST REASON FOR EXAM: Female, 48 years old. Short of breath TECHNIQUE: Portable chest COMPARISON: 04/06/2019 FINDINGS: There is mild right basilar pulmonary opacity. There is no demonstrated pleural abnormality. Normal size heart. Normal mediastinum and milton. Normal visualized pulmonary arteries. Normal visualized aortic arch and descending thoracic aorta. Normal visualized thoracic spine. Normal visualized ribs, clavicles, and shoulders. There is no demonstrated abnormality of the visualized soft tissue structures of the upper abdomen. RAD/Chest 1 View (Portable) IMPRESSION: Mild right basilar pulmonary opacity infiltrate versus subsegmental atelectasis Electronically Signed: Agustin Richardson, at 6:02 EST Tel , Service support ,
--- NOTE | 2019-10-31 04:23 | EKG12_ITS ---
Test Reason : DYSRHYTHMIA Blood Pressure : / mmHG Vent. Rate : 097 BPM Atrial Rate : 097 BPM P-R Int : 140 ms QRS Dur : 074 ms QT Int : 334 ms P-R-T Axes : 069 100 051 degrees QTc Int : 424 ms Normal sinus rhythm Rightward axis Septal infarct , age undetermined Abnormal ECG Confirmed by SATNAM MARTINEZ, AMARA ([id number]), marketing editor CELINE CORONEL ([id number] on 10/31/2019 12:09:12 PM Referred By: Confirmed By:MP HAY MD
[2019-10-31] MEDS: Albuterol 2.5 MG/3 ML VIAL.NEB. INHALATION ×3 (04:31→05:12)
[2019-10-31] MEDS: Ipratropium/Albuterol Sulfate 3 ML AMPUL.NEB INHALATION ×4 (04:31→23:06)
--- NOTE | 2019-10-31 04:51 | ED.VISSUMM ---
- ER Visit Summary Date of Service: 10/31/19 Chief Complaint: Shortness of breath History of Present Illness: The patient is a 48 F presenting with shortness of breath. She states this has been ongoing for last 2 days. She has tried breathing treatments at home which have been ineffective. She has a history of COPD, asthma. She is complaining of subjective fever, chills. She has had a nonproductive cough. She has shortness of breath and chest pain with cough. She has nausea with no vomiting. She has myalgias and headache. She did receive a flu shot this year. Denies other complaints. Physical Examination: Patient is afebrile. Blood pressure 190/129, heart rate 98, respiratory rate 19. Pulse ox 77% on room air, 94% on 5 L. HEENT exam is unremarkable. Neck is supple. Lungs are wheezing bilaterally. Heart is regular rate and rhythm. Abdomen is soft nontender nondistended. Extremities are unremarkable. Skin is warm and dry. No focal neurologic deficit. Remainder of exam is unremarkable. Emergency Department Course and Treatment: EKG is sinus rate of 97 with no acute ischemic changes. Patient was given albuterol, Atrovent aerosols. CBC unremarkable. Chemistries show CO2 36, glucose 216. Troponin 0.041. Lactic acid is normal. Chest x-ray shows mild right basilar pulmonary opacity infiltrate versus subsegmental atelectasis. Influenza negative. She was given Rocephin, Zithromax IV. Discussed with the hospitalist for admission. Disposition: Admission Impression: COPD exacerbation, pneumonia This note was generated with Networker dictation software. It may contain incorrect words, spelling, and punctuation that were not noted in review of the chart prior to signing ED Disposition - Plan for ED Patient: Disposition: Acute Care [facility]
[2019-10-31 05:26] LABS: Absolute Lymphocyte Count 2.47 X10^3/uL (0.83-4.51); Absolute Neutrophil Count 6.2 X10^3/uL (2.0-7.7); Basophil# 0.05 X10^3/uL; Basophil% 0.5 % (0-1); Eosinophil# 0.28 X10^3/uL; Eosinophils% 2.8 % (0-5); Hematocrit 53.6 % (37-47); Hemoglobin 16.2 g/dL (12.0-15.0); Lymphocyte # 2.47 X10^3/ul (4.0); Lymphocyte % 24.7 % (19-41); Mean Corp Hgb Conc 30.2 g/dL (32-36); Mean Corpuscular Hgb 28.8 pg (27.0-32.0); Mean Corpuscular Volume 95.4 fL (81-99); Mean Platelet Vol. 10.4 fl (6.2-12.0); NRBC Flagged by Analyzer 0 % (0-5); Neutrophil # 6.17 X10^3/uL (2.7-7.7); Neutrophil % 61.6 % (47-70); Platelet Count 361 K/mm3 (150-450); RBC Distribution Width CV 13.3 % (11.6-14.6); RBC Distribution Width SD 46.9 fl (35.1-43.9); Red Blood Count 5.62 M/mm3 (4.2-5.4)
--- NOTE | 2019-10-31 05:51 | CPS ---
Pt. was given one Duoneb & three Albuterol tx.'s in ED
[2019-10-31 05:54] LABS: Lactic Acid 1.3 mmol/L (0.4-1.9)
[2019-10-31 06:00] LABS: Anion Gap 3 (5-15); BUN 11 mg/dL (7-18); BUN/Creat Ratio 18.6 RATIO (10-20); Calcium,Total 9.3 mg/dL (8.5-10.1); Chloride 99 mmol/L (98-107); Creatinine, Serum 0.59 mg/dL (0.55-1.02); EST Glomerular Filtration Rate 115 mL/min (>60); Est Glom Filt Rate - Afr Amer 139 mL/min (>60); Estimated Creatinine Clearance 93.23 ml/min; Glucose 216 mg/dL (74-106); Potassium 4.8 mmol/L (3.5-5.1); Sodium Level 138 mmol/L (136-145)
--- NOTE | 2019-10-31 06:55 | HP.PCM_ITS ---
Problem List (1) Acute on chronic respiratory failure with hypoxia and hypercapnia Status: Acute (2) COPD exacerbation Status: Acute (3) Pneumonia Status: Acute Qualifiers: Pneumonia type: due to unspecified organism Laterality: right Lung location: lower lobe of lung Qualified Code(s): J18.9 - Pneumonia, unspecified organism (4) HLD (hyperlipidemia) Status: Chronic Qualifiers: Hyperlipidemia type: unspecified Qualified Code(s): E78.5 - Hyperlipidemia, unspecified (5) CARSON (obstructive sleep apnea) Status: Suspected (6) Morbid obesity with BMI of 40.0-44.9, adult Status: Chronic (7) Tobacco abuse Status: Chronic (8) Benign essential hypertension Status: Chronic (9) Chronic back pain Status: Chronic Qualifiers: Back pain location: back pain in unspecified location Back pain laterality: unspecified Qualified Code(s): M54.9 - Dorsalgia, unspecified; G89.29 - Other chronic pain (10) GERD (gastroesophageal reflux disease) Status: Chronic Qualifiers: Esophagitis presence: esophagitis presence not specified Qualified Code(s): K21.9 - Gastro-esophageal reflux disease without esophagitis (11) Diabetes mellitus, type II Status: Chronic Qualifiers: Diabetes mellitus complication status: with other specified complication History of Present Illness Date of Admission: 10/31/19 Chief Complaint: Dyspnea, wheezing, fatigue The patient is a 48 y/o F w/ PMHx: Chronic Diastolic CHF, Chronic Asthma/COPD supposed to per records be on chronic 4L NC; however, she has been using it PRN with failed outpatient recommended pulmonary followup and testing, HTN, HLD, GERD, Diabetes mellitus type II, Chronic back pain, Obesity, CARSON non-compliant w/ BIPAP, Suspected ongoing tobacco use who presents to the [facility] ED on 10/31/19 with history of progressively worsening fatigue, malaise, decreased appetite, intermittent generalized throbbing 10 out of 10 headaches with subjective fevers and chills with worsening dyspnea and wheezing in addition to nausea without emesis over the last 48 hours prompting presentation to the ED for concern. Work-up in the ED included T 98.4, heart rate 102, BP initially 190/129, respiratory rate 27, 77% on room air with improvement to 94% on 5 L nasal cannula, BC with WBC 10, hemoglobin 16.2, platelet 361 without market shift, BMP with carbon oxide 36, glucose 216, lactic acid 1.3, troponin 0.041, chest x-ray with mild right basilar pulmonary opacity infiltrate versus subsegmental atelectasis, EKG with sinus rhythm with no acute evidence of ischemia with rightward axis as well as evidence of possible prior septal infarct. In the ED patient administered budesonide, Rocephin, azithromycin, DuoNeb and albuterol therapies as well as Tylenol. Given patient's severe history of steroid reactions initial steroid administration was deferred pending discussions with pulmonary medicine. Following evaluation and discussions with pulmonary medicine patient initiated on prednisone 40 mg daily oral regimen given severity of psychiatric side effects with attempt of prior Solu-Medrol usage. Past Medical History Past Medical History (Chronic Problems): Chronic Problems (Last Reviewed 04/06/19 @ 10:28 by Danni Bahena NP-C) HLD (hyperlipidemia) (Chronic) Morbid obesity with BMI of 40.0-44.9, adult (Chronic) Hypertension (Chronic) COPD exacerbation (Chronic) Tobacco abuse (Chronic) Hypersomnia (Chronic) Benign essential hypertension (Chronic) Herniated thoracic disc without myelopathy (Chronic) Chronic back pain (Chronic) COPD (Chronic) Asthma (Chronic) GERD (gastroesophageal reflux disease) (Chronic) Obesity (BMI 30-39.9) (Chronic) Diabetes mellitus, type II (Chronic) Medical History: Medical History (Last Reviewed 04/06/19 @ 10:28 by Danni Bahena SOLAR SALES ASSESSOR-C) COPD with acute exacerbation (Acute) J44.1 Hypertensive urgency (Ruled-out) I16.0 Otitis media (Ruled-out) H66.90 Benign essential hypertension (Chronic) I10 Herniated thoracic disc without myelopathy (Chronic) M51.24 Chronic back pain (Chronic) M54.9, G89.29 COPD (Chronic) Asthma (Chronic) J45.909 GERD (gastroesophageal reflux disease) (Chronic) K21.9 Obesity (BMI 30-39.9) (Chronic) E66.9 Diabetes mellitus, type II (Chronic) E11.9 Allergies aspirin Allergy (Verified 10/31/19 04:01) Anaphylaxis cyclobenzaprine HCl [From Flexeril] Allergy (Verified 10/31/19 04:01) Rash levofloxacin [From Levaquin] Allergy (Verified 10/31/19 04:01) Rash naproxen [From Naprosyn] Allergy (Verified 10/31/19 04:01) Anaphylaxis bupropion HCl [From Wellbutrin] Adverse Reaction (Verified 10/31/19 04:01) nightmares NIGHTMARES doxycycline Adverse Reaction (Verified 10/31/19 04:01) Diarrhea Home Medications: Ambulatory Orders Medication Instructions Recorded Amlodipine [Norvasc] 10 mg PO DAILY 08/13/15 Lisinopril [Zestril] 40 mg PO DAILY 02/11/16 Hydrochlorothiazide [Hctz] 25 mg PO DAILY 10/26/17 epinephrine 1 mg/mL injection kit 1 mg IM Q10M PRN #1 ea 11/13/17 Ipratropium/Albuterol Sulfate 3 ml INHALATION 4X/DAY 03/10/18 [Duoneb] Omeprazole 1 tab PO BREAKFAST 06/09/18 Albuterol Aerosols [Ventolin 2.5 mg INHALATION Q4H PRN PRN 03/13/19 Aerosols] Albuterol Sulfate [Ventolin Hfa] 90 mcg INHALATION Q4H PRN 03/13/19 Oxygen, Home [Home Oxygen] 4 - 6 lpm NASAL PRN PRN #0 04/06/19 aclidinium bromide 400 1 inh INHALATION BID #1 ea 04/06/19 mcg/actuation breath activated powder inhaler budesonide-formoterol HFA 160 2 puff INHALATION BID #1 ea 04/06/19 mcg-4.5 mcg/actuation aerosol inhaler Insulin Glargine,Hum.rec.anlog 35 unit SQ DAILY 10/31/19 [Basaglar Jackelinepen U-100] Surgical History: Surgical History (Last Reviewed 04/06/19 @ 10:28 by DILMA Ferreira) History of tubal ligation (Resolved) Z98.51 History of section (Resolved) Z98.891 Surgical History: - - Bilateral tubal ligation, . 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 Tobacco Use: Cigarettes Alcohol: None Drugs: None - *Family History Sibling Family History: Family History (Last Reviewed 04/06/19 @ 10:28 by DILMA Ferreira) Mother Breast cancer Cancer Father COPD (chronic obstructive pulmonary disease) Hypertension Heart disease Cancer History Items: Pulmonary Disease - age 34 secondary to pulmonary hypertension Maternal Family History: Family History (Last Reviewed 04/06/19 @ 10:28 by DILMA Ferreira) Mother Breast cancer Cancer Father COPD (chronic obstructive pulmonary disease) Hypertension Heart disease Cancer History Items: Cancer - alive age 63, breast and skin Paternal Family History: Family History (Last Reviewed 04/06/19 @ 10:28 by DILMA Ferreira) Mother Breast cancer Cancer Father COPD (chronic obstructive pulmonary disease) Hypertension Heart disease Cancer History Items: Cancer - Skin cancer, COPD - alive age 65, Heart Disease, Hypertension, No pertinent history Review of Systems Constitutional: Reports: Anorexia, Chills, Fever, Malaise, Weakness, Fatigue. Denies: Weight Change HEENT: Reports: Nasal Congestion, Sinus Congestion. Denies: Head Aches, Sinus Drainage Cardiovascular: Reports: Chest Tightness. Denies: Chest Pain, Chest Pressure, Edema, Light Headedness, Orthopnea, Palpitations, Syncope Respiratory: Reports: Cough, Shortness of Breath, Shortness of breath at rest, Shortness of breath upon exertion, Sputum production, Wheezing Gastrointestinal: Reports: Nausea. Denies: Abdominal Pain, Vomiting Genitourinary: Denies: Dysuria Musculoskeletal: Reports: Back Pain, Joint Pain, Muscle pain. Denies: Joint Tenderness Skin: Denies: Rash, Wounds Neurological: Denies: Numbness, Tingling, Focal weakness Psychiatric: Reports: Anxiety, Depression. Denies: Homicidal Ideations, Suicidal Ideations Hematologic/ Lymphatic: Reports: Easy Bruising, Easy Bleeding VTE Information - Inpt Only VTE Present on Admission: No VTE Mechan Device Prophylaxis: SCD's VTE Pharm Prophylaxis ordered?: Yes Patient Problems: Active and Suspected Problems (Last Reviewed 04/06/19 @ 10:28 by DILMA Ferreira) Acute on chronic respiratory failure with hypoxia and hypercapnia (Acute) COPD exacerbation (Acute) Pneumonia (Acute) Subjective: Seated upright in the ED bed, fatigued appearance, increased work of breathing, accessory muscle usage, audible ongoing wheezing, increased oxygen needs although patient has been noncompliant with prior oxygen recommendations. Objective: Physical Examination: General: awake, alert, oriented x 3 and cooperative, seated upright in the ED bed, evident distress with increased work of breathing, accessory muscle usage, ongoing wheezing, some conversational dyspnea but notes improved since initial presentation. Skin: normal color, turgor, no icterus, cyanosis. HEENT: AT/NC, EOMI, PERRLA, dry MM, no carotid bruits or JVD noted. Lungs: Diffusely diminished breath sounds, greater bases, mildly coarse and rhonchorous, audible diffuse wheezing, increased respiratory rate, increased respiratory effort, evident distress with accessory muscle usage and some conversational dyspnea, improving since initial presentation. Heart: Tachycardic with regular rhythm; no gallop, rub audible. Abdomen: soft, obese, NTTP, ND, normal BS, no HSM; however, habitus makes examination difficult. Extremities: no cyanosis, clubbing, bilateral lower extremity pedal edema. Neurological: patient awake, alert, oriented x 3; cognitive function intact; pu pils equally reactive to light and accomodation; cranial nerves II-XII grossly normal, moving all 4 extremities, no focal deficits, strength severely global decrease secondary to acute presentation as noted. Psychiatric: affect appears fatigued, ill, distress is noted, no acute evidence of depressive or anxiety feelings. - Physical Exam Vitals/I&O's: Vital Signs Temp Pulse Resp BP Pulse Ox 98.4 F 88 20 H 190/129 H 94 10/31/19 04:00 10/31/19 04:15 10/31/19 04:15 10/31/19 04:00 10/31/19 04:15 Oxygen Flow Rate (L/min) 4 Oxygen Delivery Method Nasal Cannula Weight: 200 lb Body Mass Index (BMI) 36.6 Microbiology Past 72 Hours 10/31/19 04:30 Mucosa - Nose Influenza Types A,B Direct FA ([facility]) - Final Laboratory Results 10/31/19 04:05: WBC Cancelled, Corrected WBC Cancelled, RBC Cancelled, Hgb Cancelled, Hct Cancelled, MCV Cancelled, MCH Cancelled, MCHC Cancelled, RDW Std Deviation Cancelled, RDW Coeff of Marcy Cancelled, Plt Count Cancelled, MPV Cancelled, Immature Gran % (Auto) Cancelled, Neut % (Auto) Cancelled, Lymph % (Auto) Cancelled, Floyd % (Auto) Cancelled, Eos % (Auto) Cancelled, Baso % (Auto) Cancelled, Absolute Neuts (auto) Cancelled, Absolute Lymphs (auto) Cancelled, Total Counted Cancelled, Neutrophils % (Manual) Cancelled, Band Neutrophils % Cancelled, Lymphocytes % (Manual) Cancelled, Monocytes % (Manual) Cancelled, Eosinophils % (Manual) Cancelled, Basophils % (Manual) Cancelled, Metamyelocytes % Cancelled, Myelocytes % Cancelled, Promyelocytes % Cancelled, Blast Cells % Cancelled, Plasma Cell % (Manual) Cancelled, Other Cells % Cancelled, Nucleated RBC % Cancelled, Nucleated RBCs/100 WBC Cancelled, Differential Comment Cancelled, Diff Path Review Cancelled, Hypersegmented Neuts Cancelled, Atypical Lymphocytes Cancelled, Reactive Lymphocytes Cancelled, Smudge Cells Cancelled, Toxic Granulation Cancelled, Toxic Vacuolation Cancelled, Dohle Bodies C ancelled, Eloisa Rods Cancelled, Platelet Estimate Cancelled, Plt Morphology Comment Cancelled, RBC Morphology Cancelled, Polychromasia Cancelled, Hypochromasia Cancelled, Poikilocytosis Cancelled, Basophilic Stippling Cancelled, Anisocytosis Cancelled, Microcytosis Cancelled, Macrocytosis Cancelled, Spherocytes Cancelled, Sickle Cells Cancelled, Target Cells Cancelled, Tear Drop Cells Cancelled, Ovalocytes Cancelled, Stomatocytes Cancelled, [place] Bodies Cancelled, [place] Cells Cancelled, Bite Cells Cancelled, Crenated Cell Cancelled, Acanthocytes (Spur) Cancelled, Rouleaux Cancelled, Schistocytes Cancelled 10/31/19 04:05: Sodium Cancelled, Potassium Cancelled, Chloride Cancelled, Carbon Dioxide Cancelled, Anion Gap Cancelled, BUN Cancelled, Creatinine Cancelled, Estim Creat Clear Calc Cancelled, Est GFR (MDRD) Af Amer Cancelled, Est GFR (MDRD) Non-Af Cancelled, BUN/Creatinine Ratio Cancelled, Glucose Cancelled, Calcium Cancelled, Troponin I Cancelled 10/31/19 05:20: Lactic Acid 1.3 10/31/19 05:20: WBC 10.0, RBC 5.62 H, Hgb 16.2 H, Hct 53.6 H, MCV 95.4, MCH 28.8, MCHC 30.2 L, RDW Std Deviation 46.9 H, RDW Coeff of Marcy 13.3, Plt Count 361, MPV 10.4, Immature Gran % (Auto) 0.400, Neut % (Auto) 61.6, Lymph % (Auto) 24.7, Floyd % (Auto) 10.0, Eos % (Auto) 2.8, Baso % (Auto) 0.5, Absolute Neuts (auto) 6.2, Absolute Lymphs (auto) 2.47, Nucleated RBC % 0 10/31/19 05:20: Sodium 138, Potassium 4.8, Chloride 99, Carbon Dioxide 36.0 H, Anion Gap 3 L, BUN 11, Creatinine 0.59, Estim Creat Clear Calc 93.23, Est GFR (MDRD) Af Amer 139, Est GFR (MDRD) Non-Af 115, BUN/Creatinine Ratio 18.6, Glucose 216 H, Calcium 9.3, Troponin I 0.041 Current Medications Azithromycin 500 mg/ Dextrose 255 mls @ 250 mls/hr IV X1 ONE Stop: 10/31/19 07:14 Assessment/Plan All Active Problems (Last Reviewed 04/06/19 @ 10:28 by Danni Bahena NP-C) Acute on chronic respiratory failure with hypoxia and hypercapnia (Acute) COPD exacerbation (Acute) Pneumonia (Acute) Acute respiratory failure with hypoxia (Acute) Elevated troponin (Acute) Acute respiratory failure with hypoxia and hypercapnia (Acute) History of tubal ligation (Resolved) History of section (Resolved) COPD with acute exacerbation (Acute) Hypertensive urgency (Ruled-out) Otitis media (Ruled-out) Tobacco abuse (Resolved) The patient is a 48 y/o F w/ PMHx: Chronic Diastolic CHF, Chronic Asthma/COPD supposed to per records be on chronic 4L NC; however, she has been using it PRN with failed outpatient recommended pulmonary followup and testing, HTN, HLD, GERD, Diabetes mellitus type II, Chronic back pain, Obesity, CARSON non-compliant w/ BIPAP, Suspected ongoing tobacco use who presents to the [facility] ED on 10/31/19 with history of progressively worsening fatigue, malaise, decreased appetite, intermittent generalized throbbing 10 out of 10 headaches with subjective fevers and chills with worsening dyspnea and wheezing in addition to nausea without emesis over the last 48 hours. (1) Acute on Chronic Hypoxic Respiratory Failure secondary to Acute on chronic COPD exacerbation w/ CAP: Work-up in the ED included T 98.4, heart rate 102, BP initially 190/129, respiratory rate 27, 77% on room air with improvement to 94% on 5 L nasal cannula, BC with WBC 10, hemoglobin 16.2, platelet 361 without market shift, BMP with carbon oxide 36, glucose 216, lactic acid 1.3, troponin 0.041, chest x-ray with mild right basilar pulmonary opacity infiltrate versus subsegmental atelectasis, EKG with sinus rhythm with no acute evidence of ischemia with rightward axis as well as evidence of possible prior septal infarct. Will admit to PCU, continued on telemetry, maintain on oxygen with wean as tolerated to home oxygen supplementation although she has been noncompliant, continue ATC duonebs, PRN albuterol, pulmonary physician consulted, Dr. Myers given patient severe reaction to steroid regimen with decision for initiation of oral prednisone 40 mg daily with close monitoring for alteration needs, HOB, IS parameters, IV Azithromcyin and Rocephin with pending sputum cultures, urine antigens as well as respiratory viral panel with de-escalation of regimen if appropriate. (2) Chronic Diastolic CHF: Appears compensated, no recent orthopnea, weight gain , continue to closely monitor, not on aspirin secondary to anaphylactic history, nor however as the patient on any other agent i.e. Plavix outpatient, encourage close follow-up, continue home hydrochlorothiazide, lisinopril, not on statin or beta-man therapy but given #1 likely etiology, judiciously hydrate. (3) Diabetes mellitus type II: Hold oral home regimen, continue home insulin regimen, ADA diet, accu checks w/ ISS. (4) Hypertension, Uncontrolled: Continue home regimen including Norvasc, hydrochlorthiazide, lisinopril with adjustments as needed as patient with notable initial elevated blood pressures in the ED, likely related to current presentation #1, closely monitor, PRN hydralazine. (5) Hyperlipidemia: Not on regimen, defer to outpatient. (6) Suspected ongoing tobacco use: We will advise continued tobacco cessation as patient not admitting current tobacco use but cigarette tobacco smell, RT consulted for education. (7) CARSON: Encouraged patient to utilize BiPAP empiric therapy nightly and with naps as has been noncompliant outpatient. (8) Chronic pain syndrome: Complicates presentation, encourage every 2 positional changes, PT and OT assessments. (9) GERD: Maintained on home PPI. (10) Suspected Underlying Psychiatric Disorder: Suspect patient with underlying anxiety and depression/possible bipolar disorder, prior admissions with similar concerns, does react poorly to steroids which complicates presentation, prior behavioral health assessment request, last noted 04/05/2019. (11) DVT prophylaxis: SCDs, lovenox. (12) CODE status: Encourage patient to set up healthcare power of patent attorney and living will. Discussed CODE status at length including difference between FULL code, DNR-CCA and DNR-CC status. Following discussions about the differences in these status, requested Full Code status. Advanced Care Planning Face to Face Time: 16 minutes. Code Visit Inpatient E&M: 93327 Init Hosp L3 Procedures: 04651 Advncd Care Plan 30 Min
[2019-10-31] MEDS: Acetaminophen 500 MG Tablet 1000 MG PO (07:18)
[2019-10-31] MEDS: Ceftriaxone 1 GM/50 ML BAG IV (07:19)
--- NOTE | 2019-10-31 07:26 | NURSING ---
PCU WHITE COPD, PNEUMONIA
--- NOTE | 2019-10-31 07:54 | PCM.CONS.PUL ---
Reason for Consult Date of Consultation: 10/31/19 Reason for Consultation: COPD exacerbation History of Present Illness: The patient is a 48-year-old female, with a history as outlined below, who presented to the emergency department on October 31 with complaints of shortness of breath. The patient was initially evaluated in 2016 in the pulmonary medicine clinic over concerns for COPD, asthma and obstructive sleep apnea. Orders for testing was placed at that time to be completed. However, the patient never completed any of the testing nor did she follow-up as ordered. The patient was then admitted to the hospital in March 2019 and treated for acute on chronic combined respiratory failure. While the patient did follow-up with our nurse practitioner after her hospitalization in March, the patient once again failed to complete any of the testing that was ordered including PFTs, walking oximetry study and split-night sleep study. She was also instructed to follow-up with Dr. Dupont in 3 months, but failed to do so. The patient does have an extensive smoking history and at that time was noted to have a 4 L/min baseline supplemental oxygen requirement. Of note, it should be noted, that the patient has significant adverse behavioral manifestations to the use of corticosteroids. It is always been felt that the patient's underlying anxiety plays a significant role in her reported respiratory symptoms. The patient is supposed to utilize some form of noninvasive positive pressure ventilatory support in her home environment, but admits she has been noncompliant with its use. She also claims that she quit smoking 2 months ago. However, I I have a strong suspicion that the patient is still smoking. She does currently still live with a smoker. She reports that she has been compliant with the use of twice daily Symbicort and scheduled DuoNeb's. On presentation to the emergency department, the patient was noted to be afebrile but had a documented blood pressure of 190/129. She was initially documented to be saturating 77% on room air. Initial laboratory evaluation revealed a normal white blood cell count. Chemistry profile was only notable for a bicarbonate of 36. Lactate was within normal limits. Troponin was negative. Plain film chest x-ray per my review only revealed evidence of possible right basilar atelectasis. The patient was subsequently started on bronchodilators and antibiotics in the emergency department. She was admitted to the progressive care unit for further management. Past Medical History Past Medical History (Chronic Problems): Chronic Problems (Last Reviewed 04/06/19 @ 10:28 by DILMA Ferreira) HLD (hyperlipidemia) (Chronic) Morbid obesity with BMI of 40.0-44.9, adult (Chronic) Hypertension (Chronic) COPD exacerbation (Chronic) Tobacco abuse (Chronic) Hypersomnia (Chronic) Benign essential hypertension (Chronic) Herniated thoracic disc without myelopathy (Chronic) Chronic back pain (Chronic) COPD (Chronic) Asthma (Chronic) GERD (gastroesophageal reflux disease) (Chronic) Obesity (BMI 30-39.9) (Chronic) Diabetes mellitus, type II (Chronic) Medical History: Medical History (Last Reviewed 04/06/19 @ 10:28 by DILMA Ferreira) COPD with acute exacerbation (Acute) J44.1 Hypertensive urgency (Ruled-out) I16.0 Otitis media (Ruled-out) H66.90 Benign essential hypertension (Chronic) I10 Herniated thoracic disc without myelopathy (Chronic) M51.24 Chronic back pain (Chronic) M54.9, G89.29 COPD (Chronic) Asthma (Chronic) J45.909 GERD (gastroesophageal reflux disease) (Chronic) K21.9 Obesity (BMI 30-39.9) (Chronic) E66.9 Diabetes mellitus, type II (Chronic) E11.9 Allergies aspirin Allergy (Verified 10/31/19 04:01) Anaphylaxis cyclobenzaprine HCl [From Flexeril] Allergy (Verified 10/31/19 04:01) Rash levofloxacin [From Levaquin] Allergy (Verified 10/31/19 04:01) Rash naproxen [From Naprosyn] Allergy (Verified 10/31/19 04:01) Anaphylaxis bupropion HCl [From Wellbutrin] Adverse Reaction (Verified 10/31/19 04:01) nightmares NIGHTMARES doxycycline Adverse Reaction (Verified 10/31/19 04:01) Diarrhea Home Medications: Ambulatory Orders Medication Instructions Recorded Amlodipine [Norvasc] 10 mg PO DAILY 08/13/15 Lisinopril [Zestril] 40 mg PO DAILY 02/11/16 Hydrochlorothiazide [Hctz] 25 mg PO DAILY 10/26/17 epinephrine 1 mg/mL injection kit 1 mg IM Q10M PRN #1 ea 11/13/17 Ipratropium/Albuterol Sulfate 3 ml INHALATION 4X/DAY 03/10/18 [Duoneb] Omeprazole 1 tab PO BREAKFAST 06/09/18 Albuterol Aerosols [Ventolin 2.5 mg INHALATION Q4H PRN PRN 03/13/19 Aerosols] Albuterol Sulfate [Ventolin Hfa] 90 mcg INHALATION Q4H PRN 03/13/19 Oxygen, Home [Home Oxygen] 4 - 6 lpm NASAL PRN PRN #0 04/06/19 aclidinium bromide 400 1 inh INHALATION BID #1 ea 04/06/19 mcg/actuation breath activated powder inhaler budesonide-formoterol HFA 160 2 puff INHALATION BID #1 ea 04/06/19 mcg-4.5 mcg/actuation aerosol inhaler Insulin Glargine,Hum.rec.anlog 35 unit SQ DAILY 10/31/19 [Sophia Mitchell U-100] Surgical History: Surgical History (Last Reviewed 04/06/19 @ 10:28 by DILMA Ferreira) History of tubal ligation (Resolved) Z98.51 History of section (Resolved) Z98.891 Surgical History: noncontributory, - Psychiatric History: No pertinent psych hx 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 Smoking Status: Former smoker - *Family History Sibling Family History: Family History (Last Reviewed 04/06/19 @ 10:28 by DILMA Ferreira) Mother Breast cancer Cancer Father COPD (chronic obstructive pulmonary disease) Hypertension Heart disease Cancer History Items: Pulmonary Disease - age 34 secondary to pulmonary hypertension Maternal Family History: Family History (Last Reviewed 04/06/19 @ 10:28 by DILMA Ferreira) Mother Breast cancer Cancer Father COPD (chronic obstructive pulmonary disease) Hypertension Heart disease Cancer History Items: Cancer - alive age 63, breast and skin Paternal Family History: Family History (Last Reviewed 04/06/19 @ 10:28 by DILMA Ferreira) Mother Breast cancer Cancer Father COPD (chronic obstructive pulmonary disease) Hypertension Heart disease Cancer History Items: Cancer - Skin cancer, COPD - alive age 65, Heart Disease, Hypertension, No pertinent history Review of Systems Constitutional: Reports: Malaise, Fatigue Eyes: Denies: Blurred vision, Double vision HEENT: Denies: Head Aches, Sinus Congestion, Sinus Drainage Cardiovascular: Reports: Chest Tightness Respiratory: Reports: Shortness of Breath, Wheezing. Denies: Cough, Sputum production Gastrointestinal: Denies: Abdominal Pain, Nausea, Vomiting Genitourinary: Denies: Dysuria Musculoskeletal: Denies: Joint Pain, Joint Tenderness Skin: Denies: Rash, Wounds Neurological: Denies: Numbness, Tingling, Focal weakness Psychiatric: Reports: Anxiety, Depression Hematologic/ Lymphatic: Denies: Easy Bruising, Easy Bleeding Patient Problems: Active and Suspected Problems (Last Reviewed 04/06/19 @ 10:28 by OBDULIA FerreiraC) Acute on chronic respiratory failure with hypoxia and hypercapnia (Acute) COPD exacerbation (Acute) Pneumonia (Acute) Objective: The patient's most recent lab work, culture data and imaging studies have all been personally reviewed. - Physical Exam Vitals/I&O's: Vital Signs Temp Pulse Resp BP Pulse Ox 97.8 F 92 23 H 150/93 H 90 10/31/19 04:23 10/31/19 04:23 10/31/19 04:23 10/31/19 04:23 10/31/19 04:23 Oxygen Flow Rate (L/min) 4 Oxygen Delivery Method Nasal Cannula Weight: 200 lb Body Mass Index (BMI) 36.6 General: Alert, Cooperative, No apparent distress HEENT: Atraumatic, PERRLA, Normocephalic Oral: No Gingival or Mucosal Lesions/ Ulcerations Neck: Supple, No Nodes, Trachea Midline Lungs: Diminished, - - Bilateral wheezes. No accessory muscle use. Speaking in complete sentences. Cardiovascular: Regular rate, Regular Rhythm, Normal S1, Normal S2, No murmurs Abdomen: Bowel Sounds Present, Soft, Non Tender, Obese Extremities: No clubbing, No cyanosis, No edema Skin: No breakdown Musculoskeletal: No Tenderness to Palpation of Joints or Extremities, No Muscle Wasting Lymphatic: No Cervical, Supraclavicular, or Inguinal Adenopathy Neurological: Cranial nerves II-XII grossly intact, Neuro grossly intact Psych/Mental Status: Anxious Labs (Last 48 Hours) 10/31/19 10/31/19 10/31/19 04:05 04:05 05:20 WBC Cancelled Corrected WBC Cancelled RBC Cancelled Hgb Cancelled Hct Cancelled MCV Cancelled MCH Cancelled MCHC Cancelled RDW Std Deviation Cancelled RDW Coeff of Marcy Cancelled Plt Count Cancelled MPV Cancelled Immature Gran % (Auto) Cancelled Neut % (Auto) Cancelled Lymph % (Auto) Cancelled [place] % (Auto) Cancelled Eos % (Auto) Cancelled Baso % (Auto) Cancelled Absolute Neuts (auto) Cancelled Absolute Lymphs (auto) Cancelled Total Counted Cancelled Neutrophils % (Manual) Cancelled Band Neutrophils % Cancelled Lymphocytes % (Manual) Cancelled Monocytes % (Manual) Cancelled Eosinophils % (Manual) Cancelled Basophils % (Manual) Cancelled Metamyelocytes % Cancelled Myelocytes % Cancelled Promyelocytes % Cancelled Blast Cells % Cancelled Plasma Cell % (Manual) Cancelled Other Cells % Cancelled Nucleated RBC % Cancelled Nucleated RBCs/100 WBC Cancelled Differential Comment Cancelled Diff Path Review Cancelled Hypersegmented Neuts Cancelled Atypical Lymphocytes Cancelled Reactive Lymphocytes Cancelled Smudge Cells Cancelled Toxic Granulation Cancelled Toxic Vacuolation Cancelled Dohle Bodies Cancelled Eloisa Rods Cancelled Platelet Estimate Cancelled Plt Morphology Comment Cancelled RBC Morphology Cancelled Polychromasia Cancelled Hypochromasia Cancelled Poikilocytosis Cancelled Basophilic Stippling Cancelled Anisocytosis Cancelled Microcytosis Cancelled Macrocytosis Cancelled Spherocytes Cancelled Sickle Cells Cancelled Target Cells Cancelled Tear Drop Cells Cancelled Ovalocytes Cancelled Stomatocytes Cancelled [place] Bodies Cancelled Bj Cells Cancelled Bite Cells Cancelled Crenated Cell Cancelled Acanthocytes (Spur) Cancelled Rouleaux Cancelled Schistocytes Cancelled Sodium Cancelled Potassium Cancelled Chloride Cancelled Carbon Dioxide Cancelled Anion Gap Cancelled BUN Cancelled Creatinine Cancelled Estim Creat Clear Calc Cancelled Est GFR (MDRD) Af Amer Cancelled Est GFR (MDRD) Non-Af Cancelled BUN/Creatinine Ratio Cancelled Glucose Cancelled Lactic Acid 1.3 Calcium Cancelled Troponin I Cancelled 10/31/19 10/31/19 05:20 05:20 WBC 10.0 Corrected WBC RBC 5.62 H Hgb 16.2 H Hct 53.6 H MCV 95.4 MCH 28.8 MCHC 30.2 L RDW Std Deviation 46.9 H RDW Coeff of Marcy 13.3 Plt Count 361 MPV 10.4 Immature Gran % (Auto) 0.400 Neut % (Auto) 61.6 Lymph % (Auto) 24.7 [place] % (Auto) 10.0 Eos % (Auto) 2.8 Baso % (Auto) 0.5 Absolute Neuts (auto) 6.2 Absolute Lymphs (auto) 2.47 Total Counted Neutrophils % (Manual) Band Neutrophils % Lymphocytes % (Manual) Monocytes % (Manual) Eosinophils % (Manual) Basophils % (Manual) Metamyelocytes % Myelocytes % Promyelocytes % Blast Cells % Plasma Cell % (Manual) Other Cells % Nucleated RBC % 0 Nucleated RBCs/100 WBC Differential Comment Diff Path Review Hypersegmented Neuts Atypical Lymphocytes Reactive Lymphocytes Smudge Cells Toxic Granulation Toxic Vacuolation Dohle Bodies Eloisa Rods Platelet Estimate Plt Morphology Comment RBC Morphology Polychromasia Hypochromasia Poikilocytosis Basophilic Stippling Anisocytosis Microcytosis Macrocytosis Spherocytes Sickle Cells Target Cells Tear Drop Cells Ovalocytes Stomatocytes [place] Bodies Bj Cells Bite Cells Crenated Cell Acanthocytes (Spur) Rouleaux Schistocytes Sodium 138 Potassium 4.8 Chloride 99 Carbon Dioxide 36.0 H Anion Gap 3 L BUN 11 Creatinine 0.59 Estim Creat Clear Calc 93.23 Est GFR (MDRD) Af Amer 139 Est GFR (MDRD) Non-Af 115 BUN/Creatinine Ratio 18.6 Glucose 216 H Lactic Acid Calcium 9.3 Troponin I 0.041 Microbiology 10/31/19 04:30 Mucosa - Nose Influenza Types A,B Direct FA (DARRYL) - Final Clinical Impression(s) from Imaging Studies Chest X-Ray 10/31/19 04:23 IMPRESSION: Mild right basilar pulmonary opacity infiltrate versus subsegmental atelectasis Electronically Signed: Agustin Richardson, at 6:02 EST Tel , Service support , Assessment/Plan All Active Problems (Last Reviewed 04/06/19 @ 10:28 by Danni Bahena, CHIQUIS-C) Acute on chronic respiratory failure with hypoxia and hypercapnia (Acute) COPD exacerbation (Acute) Pneumonia (Acute) Acute respiratory failure with hypoxia (Acute) Elevated troponin (Acute) Acute respiratory failure with hypoxia and hypercapnia (Acute) History of tubal ligation (Resolved) History of section (Resolved) COPD with acute exacerbation (Acute) Hypertensive urgency (Ruled-out) Otitis media (Ruled-out) Tobacco abuse (Resolved) RECOMMENDATIONS: 1. Continue bronchodilators and steroids as ordered. 2. Wean supplemental oxygen as tolerated. 3. Continue empiric antimicrobials. 4. Check respiratory viral panel. 5. Start empiric BiPAP therapy with naps and nightly. IMPRESSIONS: 1. Acute on chronic combined respiratory failure While the patient does have a reported history of both COPD and asthma, she has never completed pulmonary function testing previously. She does have an extensive smoking history and I strongly suspect that she is still smoking. She has a history of medical noncompliance and has poor outpatient follow-up. I am doubtful that based upon the chest imaging studies that the patient has an underlying bacterial pneumonia. However, it would be reasonable to continue empiric antibiotics for 48 hours pending infectious work-up. I would recommend checking a respiratory viral panel as well. Continue scheduled bronchodilators. Continue prednisone at 40 mg daily. Wean supplemental oxygen as tolerated. 2. Heart failure with preserved ejection fraction/pulmonary hypertension Continue outpatient cardiac medications. 3. Clinical concern for underlying sleep disordered breathing The patient needs to follow-up with the pulmonary medicine clinic so that a diagnostic polysomnogram can be completed. In the interim, would recommend empiric utilization of BIPAP with naps and nightly. 4. Continuous tobacco dependency/diabetes mellitus/morbid obesity/history of medical noncompliance/chronic pain syndrome Complicates care, management, recovery and prognosis. Continue home antihypertensive regimen. This note was generated with [employer] dictation software. It may contain incorrect words, spelling, and punctuation that were not noted in checking the note before signing. Code Visit Inpatient E&M: 08951 Init Hosp L3
[2019-10-31 08:19] LABS: Magnesium 1.7 mg/dL (1.6-2.6)
[2019-10-31] MEDS: hydroCHLOROthiazide 25 MG Tablet PO (09:25)
[2019-10-31] MEDS: predniSONE 20 MG Tablet 40 MG PO (09:25)
[2019-10-31] MEDS: Pantoprazole Sodium 20 MG Tablet PO (09:25)
[2019-10-31] MEDS: amLODIPine 10 MG Tablet PO (09:26)
[2019-10-31] MEDS: Lisinopril 40 MG Tablet PO (09:26)
[2019-10-31] MEDS: 0.9% Normal Saline 1,000 ML 100 ML IV ×2 (09:32→18:21)
[2019-10-31 09:36] LABS: Bedside Glucose 270 mg/dL (70-110)
[2019-10-31] MEDS: Insulin Lispro 100 UNIT/ML INSULN.PEN SC ×2 (11:15→16:51)
[2019-10-31] MEDS: Acetaminophen 325 MG Tablet 650 MG PO ×2 (11:19→22:55)
[2019-10-31 11:36] LABS: Bedside Glucose 211 mg/dL (70-110)
--- NOTE | 2019-10-31 11:43 | NURSING ---
Patient refusing BIPAP. Nursing and RT educated patient on the importance of wearing the BIPAP.
[2019-10-31] MEDS: Morphine 2 MG/ML Syringe IV (15:21)
[2019-10-31] MEDS: 0.9% Saline Lock 10 ML Syringe IV ×2 (15:21→16:57)
--- NOTE | 2019-10-31 15:36 | NURSING ---
Patient refusing to wear oxygen. Patient states it is bothering me. Nursing reinforced the importance of wearing oxygen. Patient sats in the 80s on RA. Notified
--- NOTE | 2019-10-31 16:38 | CPS ---
Set up Bipap, tried to get pt to wear it but pt refused. RN aware.
[2019-10-31 16:55] LABS: Bedside Glucose 251 mg/dL (70-110)
[2019-10-31] MEDS: Ondansetron 4 MG/2 ML Vial IV (16:57)
--- NOTE | 2019-10-31 17:43 | NURSING ---
Patient sats were in the 50s-60s. Hospitalist was called. After MD was notified, patient became compliant with oxygen therapy and placed back on PA. MD came to assess patient and stated the importance of compliance with oxygen.
--- NOTE | 2019-10-31 20:00 | NURSING ---
RN SPOKE TO PATIENT ABOUT IMPORTANCE OF TRYING BIPAP AT HS TO HELP WITH BREATHING. STATES WILL TRY TO WEAR IT.
--- NOTE | 2019-10-31 21:32 | NURSING ---
PATIENT NOW REFUSING TO GO ON BIPAP, STATES SHE DOESN'T CARE AND IS NOT GOING TO DO IT. ONCE AGAIN RN WENT INTO DETAIL ABOUT IMPORTANCE OF BIPAP AND HOW WILL HELP WITH HER BREATHING. REFUSING TO WEAR.
[2019-10-31 22:40] LABS: Bedside Glucose 172 mg/dL (70-110)
--- NOTE | 2019-10-31 23:09 | CPS ---
PT REFUSES BIPAP.. PT WAS ASKED THREE TIMES THIS EVENING
[2019-11-01] VITALS (19 sets, daily range): BP systolic 138–159; BP diastolic 77–98; PULSE 86–94; RESP 18–26; TEMP 36.6–36.7; O2SAT 89–97
--- NOTE | 2019-11-01 01:20 | NURSING ---
PATIENT WOKE UP WANTING TO GO TO BATHROOM, UP TO BEDSIDE COMMODE GOT CONFUSED DUE TO 02 DROPPING 76%, GOT PATIENT BACK TO BED, REFUSING TO PUT OXYGEN ON OR BIPAP, MD CALLED AND CAME TO ROOM, WAS ABLE TO GET 02 BACK ON PATIENT. 95% ON 4LNC, PATIENT WAS A/OX3 ONCE OXYGEN BACK ON. STILL REFUSING TO WEAR BIPAP, MD DOESN'T NOT WANT ABG AT THIS TIME SINCE 02 CAME BACK UP AND PATIENT ORIENTATED.
[2019-11-01] MEDS: Ondansetron 4 MG/2 ML Vial IV (02:52)
[2019-11-01] MEDS: 0.9% Saline Lock 10 ML Syringe IV (02:52)
--- NOTE | 2019-11-01 03:00 | NURSING ---
Addendum entered by Ciara Rehman 11/01/19 03:26: PATIENT IN AND OUT OF CONFUSION. Original Note: PATIENT COMPLAINING OF ABDOMEN HURTING, WAS GIVEN ZOFRAN, BECAME VERY COMBATIVE AND NON-COMPLIANT WOULD NOT PUT BACK ON OXYGEN, PAGED TO ROOM, ABG'S DRAWN. PATIENT GETTING AGITATED WITH STAFF AND BEING VERBALLY ABUSIVE. 02 DROPPED TO 76% ON RA, WHEN PATIENT PLACED BACK ON 4LNC CAME UP TO 92%. BECAME ALERT AND ORIENTATED ASKING FOR SOMETHING TO EAT, ABLE TO ANSWER QUESTIONS CORRECTLY. ABG BACK, DOCTOR WANTS PATIENT RESTRAINED AND ON BIPAP DUE TO CO2 LEVEL
[2019-11-01 03:16] LABS: Base Excess 21 mmol/L (-2 to +2); Bicarbonate 45.6 mmol/L (22-26); Blood Gas Specimen Type ART; O2 Delivery Device Room Air; PO2 40 mmHG (75-100); SITE R Radial; SO2 71 % (95-99); Time Given 306; Total Carbon Dioxide 48 mmol/L; pCO2 75.3 mmHg (35-45); pH 7.39 (7.35-7.45)
--- NOTE | 2019-11-01 03:19 | CPS ---
Critical ABG results sent to Dr. Robbins via [employer].
--- NOTE | 2019-11-01 03:51 | NURSING ---
Lisa from [facility] talked with Dr. Robbins, no bipap as long as patient is cooperative with O2.
[2019-11-01] MEDS: Ipratropium/Albuterol Sulfate 3 ML AMPUL.NEB INHALATION ×5 (05:40→23:41)
[2019-11-01] MEDS: Insulin Lispro 100 UNIT/ML INSULN.PEN SC ×2 (06:29→23:04)
[2019-11-01] MEDS: Enoxaparin 40 MG/0.4 ML Syringe SC (06:29)
[2019-11-01 06:36] LABS: Bedside Glucose 208 mg/dL (70-110)
[2019-11-01 08:24] LABS: Absolute Lymphocyte Count 2.28 X10^3/uL (0.83-4.51); Absolute Neutrophil Count 6.5 X10^3/uL (2.0-7.7); Basophil# 0.07 X10^3/uL; Basophil% 0.7 % (0-1); Eosinophil# 0.12 X10^3/uL; Eosinophils% 1.2 % (0-5); Hematocrit 49.7 % (37-47); Hemoglobin 15.2 g/dL (12.0-15.0); Lymphocyte # 2.28 X10^3/ul (4.0); Mean Corp Hgb Conc 30.6 g/dL (32-36); Mean Corpuscular Hgb 29.1 pg (27.0-32.0); Mean Corpuscular Volume 95.2 fL (81-99); Mean Platelet Vol. 10.7 fl (6.2-12.0); Monocyte# 0.96 X10^3/uL; Monocyte% 9.7 % (0-10); NRBC Flagged by Analyzer 0 % (0-5); Neutrophil # 6.47 X10^3/uL (2.7-7.7); Neutrophil % 65.1 % (47-70); Platelet Count 335 K/mm3 (150-450); RBC Distribution Width CV 13.3 % (11.6-14.6); RBC Distribution Width SD 46.5 fl (35.1-43.9); Red Blood Count 5.22 M/mm3 (4.2-5.4); White Blood Count 9.9 K/mm3 (4.4-11.0)
[2019-11-01 08:42] LABS: Anion Gap -2 (5-15); BUN 14 mg/dL (7-18); BUN/Creat Ratio 24.8 RATIO (10-20); Calcium,Total 8.8 mg/dL (8.5-10.1); Chloride 97 mmol/L (98-107); Creatinine, Serum 0.56 mg/dL (0.55-1.02); EST Glomerular Filtration Rate 122 mL/min (>60); Est Glom Filt Rate - Afr Amer 147 mL/min (>60); Estimated Creatinine Clearance 98.22 ml/min; Glucose 159 mg/dL (74-106); Potassium 4.1 mmol/L (3.5-5.1); Sodium Level 137 mmol/L (136-145)
--- NOTE | 2019-11-01 10:51 | PN_ITS ---
Patient Problems: Active and Suspected Problems (Last Reviewed 04/06/19 @ 10:28 by Danni Bahena NP-Shoaib) Acute on chronic respiratory failure with hypoxia and hypercapnia (Acute) COPD exacerbation (Acute) Pneumonia (Acute) Subjective: Patient did okay from a hemodynamic standpoint overnight. Patient did have several ABGs secondary to respiratory distress showing compensated chronic respiratory failure. Patient did not use BiPAP therapy and reportedly has some issues with agitation. On my evaluation this morning, patient was tearful and stating I hurt all over. Patient did report cough, but no production was reported. - Physical Exam Vitals/I&O's: Vital Signs Temp Pulse Resp BP Pulse Ox 36.6 C 92 18 144/85 H 97 11/01/19 06:05 11/01/19 06:52 11/01/19 06:05 11/01/19 06:05 11/01/19 06:05 Oxygen Flow Rate (L/min) 4 Oxygen Delivery Method Nasal Cannula Weight: 108.3 kg Body Mass Index (BMI) 43.7 Intake and Output for Last 24 Hours 10/30/19 10/31/19 11/01/19 23:59 23:59 23:59 Intake Total 2101.67 / 2101.67 451.67 / 451.67 Output Total 950 / 950 Balance 2101.67 / 2101.67 -498.33 / -498.33 General: Alert, Oriented x3, Cooperative - Intermittently, - - Mild distress and tearful. Morbidly obese. HEENT: Atraumatic, PERRLA, EOMI, Normocephalic, - - Scleral injection without icterus Oral: Moist Mucosa, No Gingival or Mucosal Lesions/ Ulcerations, - - Crowded posterior pharynx Neck: Supple, No JVD, No Nodes, Trachea Midline Lungs: No rhonchi, No rales, Diminished, Wheezes, - - Symmetric expansion. No dullness to percussion Cardiovascular: Regular rate, Regular Rhythm, Normal S1, Normal S2, No murmurs, No rub noted, No Gallop Abdomen: Bowel Sounds Present, Soft, Non-Distended, Obese, Tender - With deep palpation Extremities: No clubbing, No cyanosis, No edema Skin: No rashes, No breakdown Musculoskeletal: Tenderness - Palpation of all extremities Lymphatic: No Cervical, Supraclavicular, or Inguinal Adenopathy Neurological: Cranial nerves II-XII grossly intact, Neuro grossly intact, Motor Exam 5/5 strength throughout Psych/Mental Status: Anxious, Impulsive, Restless Microbiology Past 72 Hours 10/31/19 09:10 Mucosa - Nasopharyngeal Respiratory Panel (PCR) - Final 10/31/19 09:00 Urine, Clean Catch Legionella Antigen - Final 10/31/19 09:00 Urine, Clean Catch Streptococcus pneumoniae Antigen (M - Final 10/31/19 04:30 Mucosa - Nose Influenza Types A,B Direct FA (DARRYL) - Final Laboratory Results 10/31/19 11:14: POC Glucose 211 H 10/31/19 16:47: POC Glucose 251 H 10/31/19 21:26: POC Glucose 172 H 11/01/19 03:08: Specimen Type ART, Sample Site R Radial, pH 7.39, Bicarbonate Actual 45.6 H, POC Total CO2 48, Base Excess 21 H, O2 Saturation 71 L, ABG pCO2 75.3 H*, ABG pO2 40 L, O2 Delivery Device Room Air, Blood Gas Notified Whom [facility] , Blood Gas Notified Time 306 11/01/19 06:27: POC Glucose 208 H 11/01/19 08:14: WBC 9.9, RBC 5.22, Hgb 15.2 H, Hct 49.7 H, MCV 95.2, MCH 29.1, MCHC 30.6 L, RDW Std Deviation 46.5 H, RDW Coeff of Mracy 13.3, Plt Count 335, MPV 10.7, Immature Gran % (Auto) 0.300, Neut % (Auto) 65.1, Lymph % (Auto) 23.0, [place] % (Auto) 9.7, Eos % (Auto) 1.2, Baso % (Auto) 0.7, Absolute Neuts (auto) 6.5, Absolute Lymphs (auto) 2.28, Nucleated RBC % 0 11/01/19 08:14: Sodium 137, Potassium 4.1, Chloride 97 L, Carbon Dioxide 42.0 H, Anion Gap -2 L, BUN 14, Creatinine 0.56, Estim Creat Clear Calc 98.22, Est GFR (MDRD) Af Amer 147, Est GFR (MDRD) Non-Af 122, BUN/Creatinine Ratio 24.8 H, Glucose 159 H, Calcium 8.8 Current Medications Acetaminophen (Tylenol) 650 mg PO Q6H PRN PRN PRN Reason: Non-cardiac pain (4-09/02) Last Admin: 10/31/19 22:55 Dose: 650 mg Documented by: Al Hydroxide/Mg Hydroxide (Mylanta Ii) 15 - 30 ml PO Q4H PRN PRN PRN Reason: INDIGESTION Albuterol Sulfate (Ventolin Aerosols) 2.5 mg INHALATION Q2H PRN PRN PRN Reason: dyspnea, wheezing Albuterol/Ipratropium (Duoneb) 3 ml INHALATION Q4HWA.RT [facility] Last Admin: 11/01/19 05:40 Dose: 3 ml Documented by: Amlodipine Besylate (Norvasc) 10 mg PO DAILY [facility] Last Admin: 10/31/19 09:26 Dose: 10 mg Documented by: Dextrose (D50w Syringe) 0 gm IV X1 PRN; Protocol PRN Reason: Hypoglycemia Enoxaparin Sodium (Lovenox) 40 mg SC DAILY@0600 [facility] Last Admin: 11/01/19 06:29 Dose: 40 mg Documented by: Glucagon () 1 mg IM .X1 PRN PRN Reason: Hypoglycemia Guaifenesin (Robitussin) 20 ml PO Q4H PRN PRN PRN Reason: COUGH Hydralazine HCl (Apresoline Iv) 10 mg IV Q4H PRN PRN PRN Reason: SBP > 160 Hydrochlorothiazide (Hctz) 25 mg PO DAILY [facility] Last Admin: 10/31/19 09:25 Dose: 25 mg Documented by: Azithromycin 500 mg/ Dextrose 255 mls @ 250 mls/hr IV Q24 [facility] Stop: 11/05/19 11:15 Last Admin: 11/01/19 09:56 Dose: 250 mls/hr Documented by: Ceftriaxone Sodium 2 gm/ (Sodium Chloride) 50 mls @ 100 mls/hr IV Q24 [facility] Stop: 11/08/19 10:29 Sodium Chloride () 250 mls @ 15 mls/hr IV .[id number] PRN PRN Reason: Saline Flush Insulin Glargine (Lantus (Bk)) 35 units SC DAILY [facility] Last Admin: 10/31/19 09:25 Dose: 35 units Documented by: Insulin Human Lispro (Humalog Kwikpen ([facility])) 0 unit SC ACHS [facility]; Protocol Last Admin: 11/01/19 06:29 Dose: 2 units Documented by: Lisinopril (Zestril) 40 mg PO DAILY [facility] Last Admin: 10/31/19 09:26 Dose: 40 mg Documented by: Magnesium Hydroxide (Milk Of Magnesia) 30 ml PO DAILY PRN PRN Reason: Constipation Melatonin (Melatonin) 3 mg PO QHS PRN PRN PRN Reason: INSOMNIA Morphine Sulfate () 1 - 2 mg IV Q4H PRN PRN PRN Reason: Pain Score 1-10/10 Last Admin: 10/31/19 15:21 Dose: 2 mg Documented by: Ondansetron HCl (Zofran) 4 mg IV Q8H PRN PRN PRN Reason: NAUSEA/VOMITING Last Admin: 11/01/19 02:52 Dose: 4 mg Documented by: Pantoprazole Sodium (Protonix) 20 mg PO BREAKFAST [facility] Last Admin: 10/31/19 09:25 Dose: 20 mg Documented by: Prednisone () 40 mg PO DAILY@0800 [facility] Sodium Chloride () 10 - 40 ml IV UD PRN PRN Reason: SALINE FLUSH Last Admin: 11/01/19 02:52 Dose: 10 ml Documented by: Throat Lozenges (Cepacol Sore Throat Lozenge) 1 lozenge MUCOUS MEM Q2H PRN PRN PRN Reason: Sore Throat/Cough Medical Necessity - Tobacco Use Smoking Status: Former smoker - Although suspect ongoing tobacco usage. Tobacco Use: Cigarettes Assessment/Plan All Active Problems (Last Reviewed 04/06/19 @ 10:28 by Danni Bahena NP-C) Acute on chronic respiratory failure with hypoxia and hypercapnia (Acute) COPD exacerbation (Acute) Pneumonia (Acute) Acute respiratory failure with hypoxia (Acute) Elevated troponin (Acute) Acute respiratory failure with hypoxia and hypercapnia (Acute) History of tubal ligation (Resolved) History of section (Resolved) COPD with acute exacerbation (Acute) Hypertensive urgency (Ruled-out) Otitis media (Ruled-out) Tobacco abuse (Resolved) RECOMMENDATIONS: 1. Continue bronchodilators and steroids as ordered. 2. Wean supplemental oxygen as tolerated. 3. Continue empiric antimicrobials. 4. Increase activity as tolerated 5. Start AVAPS therapy with naps and nightly. IMPRESSIONS: 1. Acute on chronic combined respiratory failure While the patient does have a reported history of both COPD and asthma, she has never completed pulmonary function testing previously. Patient's viral work-up is negative at this time. Reasonable to continue antibiotics for 48 hours until culture negative. Continue with bronchodilators and empiric steroid therapy. Wean oxygen as tolerated. Will check CPK for evaluation of rhabdomyolysis. Keep saturations greater than 90% at all times. Unclear what to make of patient's generalized body aches. Patient has been noncompliant in the past, so there is been no pulmonary function test for quantification or clarification of lung disease. 2. Heart failure with preserved ejection fraction/pulmonary hypertension Continue outpatient cardiac medications. 3. Clinical concern for underlying sleep disordered breathing Patient has been set up with a trilogy machine at home. This should be continued with any sleep and would help with patient's chronic respiratory failure. Patient's ABG are not suggestive of emergency BiPAP requirements. 4. Continuous tobacco dependency/diabetes mellitus/morbid obesity/history of medical noncompliance/chronic pain syndrome Complicates care, management, recovery and prognosis. Continue home antihypertensive regimen. Code Visit Inpatient E&M: [id number] [facility] Hosp L3
[2019-11-01 11:34] LABS: AST(SGOT) 24 U/L (15-37); Alanine Aminotransfer ALT/SGPT 44 U/L (13-56); Albumin, Serum 2.8 g/dL (3.2-5.0); Alkaline Phosphatase 112 U/L (45-117); Bilirubin, Direct < 0.05 mg/dL (0.00-0.30); CPK Total, Creatine Kinase 39 U/L (26-192); Globulin 3.4 g/dL (2.2-4.2); Lipase 59 U/L (73-393); Protein, Total 6.2 g/dL (6.4-8.2)
[2019-11-01 11:41] LABS: Bedside Glucose 160 mg/dL (70-110)
--- NOTE | 2019-11-01 14:30 | NURSING ---
pt is resting in bed with HOB elevated. attempted to apply bipap and patient declined.
[2019-11-01] MEDS: amLODIPine 10 MG Tablet PO (15:42)
[2019-11-01] MEDS: Lisinopril 40 MG Tablet PO (15:42)
[2019-11-01] MEDS: hydroCHLOROthiazide 25 MG Tablet PO (15:42)
[2019-11-01] MEDS: predniSONE 20 MG Tablet 40 MG PO (15:42)
[2019-11-01] MEDS: Pantoprazole Sodium 20 MG Tablet PO (15:42)
--- NOTE | 2019-11-01 15:45 | NURSING ---
attempted to contact pt's son, Fan, and he stated that he wished to be removed as pt's emergency contact, HOANG aware
[2019-11-01 17:10] LABS: Bedside Glucose 157 mg/dL (70-110)
--- NOTE | 2019-11-01 19:13 | PCM.PROGNOTE ---
Patient Problems: Active and Suspected Problems (Last Reviewed 04/06/19 @ 10:28 by Danni Bahena NP-Shoaib) Acute on chronic respiratory failure with hypoxia and hypercapnia (Acute) COPD exacerbation (Acute) Pneumonia (Acute) Subjective: Patient was seen and examined today, I discussed her medical care with pulmonary medicine who is participating in her medical management. Patient has been lethargic today and sleeping most of the day, she has not been taking her meals on a regular basis, I have decided to stop her basal insulin and keep her on sliding scale insulin with every 6 hours blood sugars. - Physical Exam Vitals/I&O's: Vital Signs Temp Pulse Resp BP Pulse Ox 98.0 F 89 20 H 148/91 H 92 11/01/19 18:00 11/01/19 18:00 11/01/19 18:00 11/01/19 18:00 11/01/19 18:00 Oxygen Flow Rate (L/min) 3.5 Oxygen Delivery Method Nasal Cannula Weight: 108.3 kg Body Mass Index (BMI) 43.7 Intake and Output for Last 24 Hours 10/30/19 10/31/19 11/01/19 23:59 23:59 23:59 Intake Total 2101.67 / 2101.67 756.67 / 756.67 Output Total 1650 / 1650 Balance 2101.67 / 2101.67 -893.33 / -893.33 General: No apparent distress, Well developed, Lethargic HEENT: Atraumatic, PERRLA, EOMI, Normocephalic Oral: Moist Mucosa Neck: Supple, Trachea Midline, Thyroid Normal Size and Texture Lungs: Clear to auscultation, No rhonchi, No wheeze, Diminished Cardiovascular: Regular rate, Regular Rhythm, Normal S1, Normal S2, No murmurs Abdomen: Bowel Sounds Present, Soft, Non Tender, Non-Distended Extremities: No clubbing, No cyanosis, Capillary Refill Less than 3 Seconds Skin: No rashes, No breakdown Musculoskeletal: No Tenderness to Palpation of Joints or Extremities Neurological: Cranial nerves II-XII grossly intact, Neuro grossly intact, Sensory exam intact to light touch and pain Psych/Mental Status: Flat Affect, - - Patient is somnolent, she answers some questions appropriately Microbiology Past 72 Hours 10/31/19 09:10 Mucosa - Nasopharyngeal Respiratory Panel (PCR) - Final 10/31/19 09:00 Urine, Clean Catch Legionella Antigen - Final 10/31/19 09:00 Urine, Clean Catch Streptococcus pneumoniae Antigen (M - Final 10/31/19 04:30 Mucosa - Nose Influenza Types A,B Direct FA (DARRYL) - Final Laboratory Results 10/31/19 21:26: POC Glucose 172 H 11/01/19 03:08: Specimen Type ART, Sample Site R Radial, pH 7.39, Bicarbonate Actual 45.6 H, POC Total CO2 48, Base Excess 21 H, O2 Saturation 71 L, ABG pCO2 75.3 H*, ABG pO2 40 L, O2 Delivery Device Room Air, Blood Gas Notified Whom [facility] , Blood Gas Notified Time 306 11/01/19 06:27: POC Glucose 208 H 11/01/19 08:14: WBC 9.9, RBC 5.22, Hgb 15.2 H, Hct 49.7 H, MCV 95.2, MCH 29.1, MCHC 30.6 L, RDW Std Deviation 46.5 H, RDW Coeff of Marcy 13.3, Plt Count 335, MPV 10.7, Immature Gran % (Auto) 0.300, Neut % (Auto) 65.1, Lymph % (Auto) 23.0, [place] % (Auto) 9.7, Eos % (Auto) 1.2, Baso % (Auto) 0.7, Absolute Neuts (auto) 6.5, Absolute Lymphs (auto) 2.28, Nucleated RBC % 0 11/01/19 08:14: Sodium 137, Potassium 4.1, Chloride 97 L, Carbon Dioxide 42.0 H, Anion Gap -2 L, BUN 14, Creatinine 0.56, Estim Creat Clear Calc 98.22, Est GFR (MDRD) Af Amer 147, Est GFR (MDRD) Non-Af 122, BUN/Creatinine Ratio 24.8 H, Glucose 159 H, Calcium 8.8 11/01/19 08:14: Total Bilirubin 0.20, Direct Bilirubin < 0.05, AST 24, ALT 44, Alkaline Phosphatase 112, Total Creatine Kinase 39, Total Protein 6.2 L, Albumin 2.8 L, Globulin 3.4, Lipase 59 L 11/01/19 11:32: POC Glucose 160 H 11/01/19 17:06: POC Glucose 157 H Current Medications Acetaminophen (Tylenol) 650 mg PO Q6H PRN PRN PRN Reason: Non-cardiac pain (4-09/02) Last Admin: 10/31/19 22:55 Dose: 650 mg Documented by: Al Hydroxide/Mg Hydroxide (Mylanta Ii) 15 - 30 ml PO Q4H PRN PRN PRN Reason: INDIGESTION Albuterol Sulfate (Ventolin Aerosols) 2.5 mg INHALATION Q2H PRN PRN PRN Reason: dyspnea, wheezing Albuterol/Ipratropium (Duoneb) 3 ml INHALATION Q4HWA.RT [facility] Last Admin: 11/01/19 19:13 Dose: 3 ml Documented by: Amlodipine Besylate (Norvasc) 10 mg PO DAILY [facility] Last Admin: 11/01/19 15:42 Dose: 10 mg Documented by: Dextrose (D50w Syringe) 0 gm IV X1 PRN; Protocol PRN Reason: Hypoglycemia Enoxaparin Sodium (Lovenox) 40 mg SC DAILY@0600 [facility] Last Admin: 11/01/19 06:29 Dose: 40 mg Documented by: Glucagon () 1 mg IM .X1 PRN PRN Reason: Hypoglycemia Guaifenesin (Robitussin) 20 ml PO Q4H PRN PRN PRN Reason: COUGH Hydralazine HCl (Apresoline Iv) 10 mg IV Q4H PRN PRN PRN Reason: SBP > 160 Hydrochlorothiazide (Hctz) 25 mg PO DAILY [facility] Last Admin: 11/01/19 15:42 Dose: 25 mg Documented by: Azithromycin 500 mg/ Dextrose 255 mls @ 250 mls/hr IV Q24 [facility] Stop: 11/05/19 11:15 Last Infusion: 11/01/19 10:59 Dose: Infused Documented by: Ceftriaxone Sodium 2 gm/ (Sodium Chloride) 50 mls @ 100 mls/hr IV Q24 [facility] Stop: 11/08/19 10:29 Last Infusion: 11/01/19 12:16 Dose: Infused Documented by: Sodium Chloride () 250 mls @ 15 mls/hr IV .[id number] PRN PRN Reason: Saline Flush Insulin Human Lispro (Humalog Kwikpen ([facility])) 0 unit SC Q6 [facility]; Protocol Lisinopril (Zestril) 40 mg PO DAILY [facility] Last Admin: 11/01/19 15:42 Dose: 40 mg Documented by: Magnesium Hydroxide (Milk Of Magnesia) 30 ml PO DAILY PRN PRN Reason: Constipation Melatonin (Melatonin) 3 mg PO QHS PRN PRN PRN Reason: INSOMNIA Morphine Sulfate () 1 - 2 mg IV Q4H PRN PRN PRN Reason: Pain Score 1-10/10 Last Admin: 10/31/19 15:21 Dose: 2 mg Documented by: Ondansetron HCl (Zofran) 4 mg IV Q8H PRN PRN PRN Reason: NAUSEA/VOMITING Last Admin: 11/01/19 02:52 Dose: 4 mg Documented by: Pantoprazole Sodium (Protonix) 20 mg PO BREAKFAST [facility] Last Admin: 11/01/19 15:42 Dose: 20 mg Documented by: Prednisone () 40 mg PO DAILY@0800 [facility] Last Admin: 11/01/19 15:42 Dose: 40 mg Documented by: Sodium Chloride () 10 - 40 ml IV UD PRN PRN Reason: SALINE FLUSH Last Admin: 11/01/19 02:52 Dose: 10 ml Documented by: Throat Lozenges (Cepacol Sore Throat Lozenge) 1 lozenge MUCOUS MEM Q2H PRN PRN PRN Reason: Sore Throat/Cough Medical Necessity - Tobacco Use Smoking Status: Former smoker - Although suspect ongoing tobacco usage. Tobacco Use: Cigarettes Assessment/Plan All Active Problems (Last Reviewed 04/06/19 @ 10:28 by Danni Bahena NP-C) Acute on chronic respiratory failure with hypoxia and hypercapnia (Acute) COPD exacerbation (Acute) Pneumonia (Acute) Acute respiratory failure with hypoxia (Acute) Elevated troponin (Acute) Acute respiratory failure with hypoxia and hypercapnia (Acute) History of tubal ligation (Resolved) History of section (Resolved) COPD with acute exacerbation (Acute) Hypertensive urgency (Ruled-out) Otitis media (Ruled-out) Tobacco abuse (Resolved) #1 acute on chronic combined respiratory failure-continue bronchodilators and IV corticosteroids, wean oxygen if able, pulmonary medicine is participating in her care during her hospitalization #2 essential hypertension #3 pulmonary hypertension #4 chronic obstructive pulmonary disease #5 obstructive sleep apnea #6 type 2 diabetes-continue present treatment #7 morbid obesity Code Visit Inpatient E&M: [id number] [facility] Hosp L2
--- NOTE | 2019-11-01 19:30 | NURSING ---
patient resting in bed, drowsy, will wake up to voice, oriented to person and place, unable to recall time. Reoriented, assessment complete, attempted to educate patient on the need to wear bipap, patient stated I don't care what you have to say, I'm not wearing that damn thing, leave me alone. Will continue to monitor and encourage bipap use.
--- NOTE | 2019-11-01 20:10 | NURSING ---
Heather, patient's sister at bedside, updated on POC and discussed interdisciplinary rounding tomorrow 11/02 at 1400.
--- NOTE | 2019-11-01 20:36 | NURSING ---
bed exit alarming, entered patient's room, patient attempting to get up to use bedside, assisted to bedside commode to void, back to bed. Patient tearful, stated I don't feel good, I just want everyone to leave me alone. Again attempted to educate on bipap, patient refused, stated I am sick and tired of everyone saying these things, I am not wearing that mask, I don't care. Will continue to monitor.
[2019-11-01 23:11] LABS: Bedside Glucose 231 mg/dL (70-110)
[2019-11-02] VITALS (8 sets, daily range): BP systolic 113–156; BP diastolic 74–81; PULSE 82–94; RESP 18–20; TEMP 36.7–37; O2SAT 94–97
--- NOTE | 2019-11-02 00:05 | NURSING ---
respiratory therapist at bedside attempting to give breathing treatment, patient tolerated fair, attempting to get CO2 reading, patient restless and unable to get reading at this time.
--- NOTE | 2019-11-02 00:32 | NURSING ---
CO2 monitoring reading 77.9
--- NOTE | 2019-11-02 01:42 | NURSING ---
report given to Ainsley Kingston RN at this time
[2019-11-02] MEDS: Enoxaparin 40 MG/0.4 ML Syringe SC (05:28)
[2019-11-02 05:35] LABS: Bedside Glucose 116 mg/dL (70-110)
[2019-11-02] MEDS: Acetaminophen 325 MG Tablet 650 MG PO ×2 (05:58→22:51)
[2019-11-02] MEDS: Ipratropium/Albuterol Sulfate 3 ML AMPUL.NEB INHALATION ×2 (06:56→23:00)
[2019-11-02] MEDS: 0.9% Saline Lock 10 ML Syringe IV (08:19)
[2019-11-02] MEDS: predniSONE 20 MG Tablet 40 MG PO (08:31)
[2019-11-02] MEDS: Pantoprazole Sodium 20 MG Tablet PO (08:32)
[2019-11-02] MEDS: hydroCHLOROthiazide 25 MG Tablet PO (08:32)
[2019-11-02] MEDS: amLODIPine 10 MG Tablet PO (08:32)
[2019-11-02] MEDS: Lisinopril 40 MG Tablet PO (08:32)
--- NOTE | 2019-11-02 10:29 | PN_ITS ---
Patient Problems: Active and Suspected Problems (Last Reviewed 04/06/19 @ 10:28 by Danni Bahena NP-Shoaib) Acute on chronic respiratory failure with hypoxia and hypercapnia (Acute) COPD exacerbation (Acute) Pneumonia (Acute) Subjective: Patient was uncooperative during my examination. Patient had reported that she was having significant pain from an IV site and was unable to cooperate. Patient was not reporting any shortness of breath and was yelling without any hoarseness or stridor. - Physical Exam Vitals/I&O's: Vital Signs Temp Pulse Resp BP Pulse Ox 37.0 C 94 20 H 142/76 H 94 11/02/19 09:15 11/02/19 09:15 11/02/19 09:15 11/02/19 09:15 11/02/19 09:15 Oxygen Flow Rate (L/min) 3 Oxygen Delivery Method Nasal Cannula Weight: 108.3 kg Body Mass Index (BMI) 43.7 Intake and Output for Last 24 Hours 10/31/19 11/01/19 11/02/19 23:59 23:59 23:59 Intake Total 2101.67 / 2101.67 756.67 / 876.67 138.33 / 138.33 Output Total 1650 / 2200 1550 / 1550 Balance 2101.67 / 2101.67 -893.33 / -1323.33 -1411.67 / -1411.67 General: Alert, Non-Cooperative HEENT: Atraumatic, PERRLA, EOMI, Normocephalic, - - No scleral icterus or injection noted Oral: Moist Mucosa, No Gingival or Mucosal Lesions/ Ulcerations Neck: Supple, No JVD, No Nodes, Trachea Midline Lungs: No rhonchi, No wheeze, No rales, Diminished, - - Symmetric expansion. Cardiovascular: Normal S1, Normal S2, No murmurs, Tachycardic Abdomen: Bowel Sounds Present, Soft, Non Tender, Non-Distended, Obese Extremities: No clubbing, No cyanosis, Edema Skin: No rashes, No breakdown Musculoskeletal: No Tenderness to Palpation of Joints or Extremities Lymphatic: No Cervical, Supraclavicular, or Inguinal Adenopathy Neurological: Cranial nerves II-XII grossly intact, Neuro grossly intact Psych/Mental Status: Agitated, Anxious, Impulsive, Restless Microbiology Past 72 Hours 10/31/19 09:10 Mucosa - Nasopharyngeal Respiratory Panel (PCR) - Final 10/31/19 09:00 Urine, Clean Catch Legionella Antigen - Final 10/31/19 09:00 Urine, Clean Catch Streptococcus pneumoniae Antigen (M - Final 10/31/19 04:30 Mucosa - Nose Influenza Types A,B Direct FA (DARRYL) - Final Laboratory Results 11/01/19 08:14: Total Bilirubin 0.20, Direct Bilirubin < 0.05, AST 24, ALT 44, Alkaline Phosphatase 112, Total Creatine Kinase 39, Total Protein 6.2 L, Albumin 2.8 L, Globulin 3.4, Lipase 59 L 11/01/19 11:32: POC Glucose 160 H 11/01/19 17:06: POC Glucose 157 H 11/01/19 23:02: POC Glucose 231 H 11/02/19 05:25: POC Glucose 116 H Current Medications Acetaminophen (Tylenol) 650 mg PO Q6H PRN PRN PRN Reason: Non-cardiac pain () Last Admin: 11/02/19 05:58 Dose: 650 mg Documented by: Al Hydroxide/Mg Hydroxide (Mylanta Ii) 15 - 30 ml PO Q4H PRN PRN PRN Reason: INDIGESTION Albuterol Sulfate (Ventolin Aerosols) 2.5 mg INHALATION Q2H PRN PRN PRN Reason: dyspnea, wheezing Albuterol/Ipratropium (Duoneb) 3 ml INHALATION Q4HWA.RT [facility] Last Admin: 11/02/19 06:56 Dose: 3 ml Documented by: Amlodipine Besylate (Norvasc) 10 mg PO DAILY [facility] Last Admin: 11/02/19 08:32 Dose: 10 mg Documented by: Dextrose (D50w Syringe) 0 gm IV X1 PRN; Protocol PRN Reason: Hypoglycemia Enoxaparin Sodium (Lovenox) 40 mg SC DAILY@0600 [facility] Last Admin: 11/02/19 05:28 Dose: 40 mg Documented by: Glucagon () 1 mg IM .X1 PRN PRN Reason: Hypoglycemia Guaifenesin (Robitussin) 20 ml PO Q4H PRN PRN PRN Reason: COUGH Hydralazine HCl (Apresoline Iv) 10 mg IV Q4H PRN PRN PRN Reason: SBP > 160 Hydrochlorothiazide (Hctz) 25 mg PO DAILY [facility] Last Admin: 11/02/19 08:32 Dose: 25 mg Documented by: Sodium Chloride () 250 mls @ 15 mls/hr IV .[id number] PRN PRN Reason: Saline Flush Insulin Human Lispro (Humalog Kwikpen (Bkc)) 0 unit SC Q6 [facility]; Protocol Last Admin: 11/02/19 05:28 Dose: Not Given Documented by: Lisinopril (Zestril) 40 mg PO DAILY [facility] Last Admin: 11/02/19 08:32 Dose: 40 mg Documented by: Magnesium Hydroxide (Milk Of Magnesia) 30 ml PO DAILY PRN PRN Reason: Constipation Melatonin (Melatonin) 3 mg PO QHS PRN PRN PRN Reason: INSOMNIA Morphine Sulfate () 1 - 2 mg IV Q4H PRN PRN PRN Reason: Pain Score 1-1010 Last Admin: 10/31/19 15:21 Dose: 2 mg Documented by: Ondansetron HCl (Zofran) 4 mg IV Q8H PRN PRN PRN Reason: NAUSEA/VOMITING Last Admin: 11/01/19 02:52 Dose: 4 mg Documented by: Pantoprazole Sodium (Protonix) 20 mg PO BREAKFAST [facility] Last Admin: 11/02/19 08:32 Dose: 20 mg Documented by: Prednisone () 40 mg PO DAILY@0800 [facility] Last Admin: 11/02/19 08:31 Dose: 40 mg Documented by: Sodium Chloride () 10 - 40 ml IV UD PRN PRN Reason: SALINE FLUSH Last Admin: 11/02/19 08:19 Dose: 10 ml Documented by: Throat Lozenges (Cepacol Sore Throat Lozenge) 1 lozenge MUCOUS MEM Q2H PRN PRN PRN Reason: Sore Throat/Cough Medical Necessity - Tobacco Use Smoking Status: Former smoker - Although suspect ongoing tobacco usage. Tobacco Use: Cigarettes Assessment/Plan All Active Problems (Last Reviewed 04/06/19 @ 10:28 by Danni Bahena NP-C) Acute on chronic respiratory failure with hypoxia and hypercapnia (Acute) COPD exacerbation (Acute) Pneumonia (Acute) Acute respiratory failure with hypoxia (Acute) Elevated troponin (Acute) Acute respiratory failure with hypoxia and hypercapnia (Acute) History of tubal ligation (Resolved) History of section (Resolved) COPD with acute exacerbation (Acute) Hypertensive urgency (Ruled-out) Otitis media (Ruled-out) Tobacco abuse (Resolved) RECOMMENDATIONS: 1. Continue bronchodilators and steroids as ordered. 2. Wean supplemental oxygen as tolerated. 3. Okay to discontinue antimicrobials from my perspective 4. Increase activity as tolerated 5. Start AVAPS therapy with naps and nightly. IMPRESSIONS: 1. Acute on chronic combined respiratory failure While the patient does have a reported history of both COPD and asthma, she has never completed pulmonary function testing previously. Patient's viral work-up is negative at this time. Culture data is negative at 48 hours. Will discontinue antibiotics. Continue with bronchodilators and empiric steroid therapy. Wean oxygen as tolerated. Work-up for rhabdomyolysis was unremarkable. Liver enzymes and lipase are within normal limits. Patient is not very cooperative, but does appear to have significant respiratory reserve for yelling. No significant wheezing was noted on exam. Patient continues to be noncompliant with AVAPS despite reportedly being compliant with it at home 2. Heart failure with preserved ejection fraction/pulmonary hypertension Continue outpatient cardiac medications. 3. Clinical concern for underlying sleep disordered breathing Patient has been set up with a trilogy machine at home. This should be continued with any sleep and would help with patient's chronic respiratory failure. Patient's ABG are not suggestive of emergency BiPAP requirements. 4. Continuous tobacco dependency/diabetes mellitus/morbid obesity/history of medical noncompliance/chronic pain syndrome Complicates care, management, recovery and prognosis. Continue home antihypertensive regimen. Code Visit Inpatient E&M: 89984 Subs Hosp L2
--- NOTE | 2019-11-02 11:03 | CASEMGMT ---
Addendum entered by Cindi Clemente 11/02/19 15:30: During multdisc. rounds, pt states that [facility] never educated her on NIV and that they stop by every month/90days and she lets them come into to bring supplies/check NIV but according to [facility], pt never lets them in when they come and they know that she is there. Pt states that sig other will not bring NIV into hospital for education. Pt's parents are at rounds and they offer to bring pt's NIV in so that [facility] resp therapy can educate pt on NIV prior to discharge. Pt short with answers during rounds but does verbally agree to f/u with pulm after discharge. [facility] Original Note: RN HOANG assessment: Face to Face with patient for initial transition planning/care coordination assessment. RN HOANG introduced self and role at [facility], pt voices understanding and consents to assessment at this time. Pt is lying in bed in no distress at this time. Pt is A/Ox4 at this time and answers questions appropriately. Assessment initially started on 11/01/19 but pt unable to complete d/t not being able to stay awake to complete assessment after multiple attempts. Assessment then finished on 11/02/19. Care providers, pharmacy, and demographics verified/updated at this time as per Maryan ROACH, pt's son requested to be removed from contact list at this time. Pt is aware and requests that sig other be added at this time and this was completed but pt cannot remember his last name at this time. Presentation: Pt arrived via car to ED with SOB for 1 day and stated breathing treatments ineffective at home. Admitting dx: Acute resp failure, COPD/Asthma exac, CAP PCP: [facility] Specialists: Pt denies specialists but is supposed to f/u with [facility] but has no showed at all recent appt's. Pt was ordered the NIV by Vinod in March 2019. [facility]erred [facility]acy[facility] Insurance: Lira Prescription Benefit: [employer]ira Living Will/HPOA: Pt states does not have LW/HPOA and declines info at this time. LNOK: Adrian, sig other Living Arrangements: Pt lives with sig other, Adrian, in 1 story home with 2 steps in and states no concerns at this time. Pt states sig other assists with ADL's. Transportation: Pt states sig other drives and states no transportation concerns at this time. DME/HHC: Pt states has the following DME: glucometer, nebulizer, NIV, and 2-4 liters home oxygen thru [employer]. Pt states has had [facility] HHC in the past but has not been to SNF. Pt states no concerns with going home at time of discharge. Pt is unemployed at this time. Pt states no further concerns/needs at this time. CM to follow for any further discharge planning/needs. Advised pt to ask for CM if any further questions/concerns/needs arise, voices understanding. Pt Goal: Home Plan: Home [place] ROACH CM
[2019-11-02 14:35] LABS: Bedside Glucose 221 mg/dL (70-110)
[2019-11-02] MEDS: Insulin Lispro 100 UNIT/ML INSULN.PEN SC ×2 (16:31→23:58)
[2019-11-02 16:36] LABS: Bedside Glucose 243 mg/dL (70-110)
--- NOTE | 2019-11-02 17:26 | CPS ---
This RT set up patient's home NIV with 3L bleed in. Patient stated that she knew she was suppose to wear it but doesn't sleep with her so that is why she doesn't. When I got it all set up, patient's food tray arrived, and patient stated that she needed to eat.
--- NOTE | 2019-11-02 17:48 | CPS ---
This RT went back to finish telling\showing patient about NIV. Patient states that she just got her meal and is not doing that right now. Patient states that she does not wear it at home and is not going to. This RT explained importance of NIV with her condition and the likelihood of readmission. Patient still unwilling to cooperate.
--- NOTE | 2019-11-02 19:28 | PN_ITS ---
Patient Problems: Active and Suspected Problems (Last Reviewed 04/06/19 @ 10:28 by Danni Bahena NP-Shoaib) Acute on chronic respiratory failure with hypoxia and hypercapnia (Acute) COPD exacerbation (Acute) Pneumonia (Acute) Subjective: Patient was seen and examined today, during a conference in the patient's room today with family members, patient stated that she did not understand how to use her noninvasive ventilation machine at home and she was never given instructions for this. I asked patient's family to bring in the machine-they brought in in late this afternoon but the patient told respiratory therapy that she was too busy trying to eat dinner and she did not want to go over the machine with respiratory therapy at this time. I have asked nursing to have the night respiratory therapist instruct the patient on her trilogy machine. - Physical Exam Vitals/I&O's: Vital Signs Temp Pulse Resp BP Pulse Ox 98.3 F 90 20 H 133/74 H 97 11/02/19 15:55 11/02/19 15:55 11/02/19 15:55 11/02/19 15:55 11/02/19 15:55 Oxygen Flow Rate (L/min) 2 Oxygen Delivery Method Nasal Cannula Weight: 108.3 kg Body Mass Index (BMI) 43.7 Intake and Output for Last 24 Hours 10/31/19 11/01/19 11/02/19 23:59 23:59 23:59 Intake Total 2101.67 / 2101.67 756.67 / 876.67 618.33 / 618.33 Output Total 1650 / 2200 3750 / 3750 Balance 2101.67 / 2101.67 -893.33 / -1323.33 -3131.67 / -3131.67 General: Alert, Oriented x3, Cooperative, No apparent distress, Well developed HEENT: Atraumatic, PERRLA, EOMI, Normocephalic Oral: Moist Mucosa Neck: Supple, Trachea Midline, Thyroid Normal Size and Texture Lungs: No wheeze, Diminished Cardiovascular: Regular rate, Regular Rhythm, Normal S1, Normal S2, No murmurs Abdomen: Bowel Sounds Present, Soft, Non Tender, Non-Distended Extremities: No clubbing, No cyanosis, No edema, Capillary Refill Less than 3 Seconds Skin: No rashes, No breakdown Musculoskeletal: No Tenderness to Palpation of Joints or Extremities Neurological: Cranial nerves II-XII grossly intact, Neuro grossly intact, Sensory exam intact to light touch and pain, Coordination normal Psych/Mental Status: Normal Affect, Appropriate, Alert and oriented to time, place, person, mood and affect Microbiology Past 72 Hours 10/31/19 09:10 Mucosa - Nasopharyngeal Respiratory Panel (PCR) - Final 10/31/19 09:00 Urine, Clean Catch Legionella Antigen - Final 10/31/19 09:00 Urine, Clean Catch Streptococcus pneumoniae Antigen (M - Final 10/31/19 04:30 Mucosa - Nose Influenza Types A,B Direct FA (DARRYL) - Final Laboratory Results 11/01/19 23:02: POC Glucose 231 H 11/02/19 05:25: POC Glucose 116 H 11/02/19 14:32: POC Glucose 221 H 11/02/19 16:30: POC Glucose 243 H Current Medications Acetaminophen (Tylenol) 650 mg PO Q6H PRN PRN PRN Reason: Non-cardiac pain () Last Admin: 11/02/19 05:58 Dose: 650 mg Documented by: Al Hydroxide/Mg Hydroxide (Mylanta Ii) 15 - 30 ml PO Q4H PRN PRN PRN Reason: INDIGESTION Albuterol Sulfate (Ventolin Aerosols) 2.5 mg INHALATION Q2H PRN PRN PRN Reason: dyspnea, wheezing Albuterol/Ipratropium (Duoneb) 3 ml INHALATION Q4HWA.RT [facility] Last Admin: 11/02/19 15:44 Dose: Not Given Documented by: Amlodipine Besylate (Norvasc) 10 mg PO DAILY [facility] Last Admin: 11/02/19 08:32 Dose: 10 mg Documented by: Dextrose (D50w Syringe) 0 gm IV X1 PRN; Protocol PRN Reason: Hypoglycemia Enoxaparin Sodium (Lovenox) 40 mg SC DAILY@0600 [facility] Last Admin: 11/02/19 05:28 Dose: 40 mg Documented by: Glucagon () 1 mg IM .X1 PRN PRN Reason: Hypoglycemia Guaifenesin (Robitussin) 20 ml PO Q4H PRN PRN PRN Reason: COUGH Hydralazine HCl (Apresoline Iv) 10 mg IV Q4H PRN PRN PRN Reason: SBP > 160 Hydrochlorothiazide (Hctz) 25 mg PO DAILY [facility] Last Admin: 11/02/19 08:32 Dose: 25 mg Documented by: Sodium Chloride () 250 mls @ 15 mls/hr IV .[id number] PRN PRN Reason: Saline Flush Insulin Human Lispro (Humalog Kwikpen (Bkc)) 0 unit SC Q6 [facility]; Protocol Last Admin: 11/02/19 16:31 Dose: 6 units Documented by: Lisinopril (Zestril) 40 mg PO DAILY [facility] Last Admin: 11/02/19 08:32 Dose: 40 mg Documented by: Magnesium Hydroxide (Milk Of Magnesia) 30 ml PO DAILY PRN PRN Reason: Constipation Melatonin (Melatonin) 3 mg PO QHS PRN PRN PRN Reason: INSOMNIA Morphine Sulfate () 1 - 2 mg IV Q4H PRN PRN PRN Reason: Pain Score 1-1010 Last Admin: 10/31/19 15:21 Dose: 2 mg Documented by: Ondansetron HCl (Zofran) 4 mg IV Q8H PRN PRN PRN Reason: NAUSEA/VOMITING Last Admin: 11/01/19 02:52 Dose: 4 mg Documented by: Pantoprazole Sodium (Protonix) 20 mg PO BREAKFAST [facility] Last Admin: 11/02/19 08:32 Dose: 20 mg Documented by: Prednisone () 40 mg PO DAILY@0800 [facility] Last Admin: 11/02/19 08:31 Dose: 40 mg Documented by: Sodium Chloride () 10 - 40 ml IV UD PRN PRN Reason: SALINE FLUSH Last Admin: 11/02/19 08:19 Dose: 10 ml Documented by: Throat Lozenges (Cepacol Sore Throat Lozenge) 1 lozenge MUCOUS MEM Q2H PRN PRN PRN Reason: Sore Throat/Cough Medical Necessity - Tobacco Use Smoking Status: Former smoker - Although suspect ongoing tobacco usage. Tobacco Use: Cigarettes Assessment/Plan All Active Problems (Last Reviewed 04/06/19 @ 10:28 by OBDULIA FerreiraC) Acute on chronic respiratory failure with hypoxia and hypercapnia (Acute) COPD exacerbation (Acute) Pneumonia (Acute) Acute respiratory failure with hypoxia (Acute) Elevated troponin (Acute) Acute respiratory failure with hypoxia and hypercapnia (Acute) History of tubal ligation (Resolved) History of section (Resolved) COPD with acute exacerbation (Acute) Hypertensive urgency (Ruled-out) Otitis media (Ruled-out) Tobacco abuse (Resolved) #1 acute on chronic combined respiratory failure-continue bronchodilators and IV corticosteroids, wean oxygen if able, pulmonary medicine is participating in her care during her hospitalization, I suspect the patient is not using her trilogy machine at home as directed. Again she will be instructed by radha mujica concerning this machine, if patient remains stable tomorrow she will likely be discharged. #2 essential hypertension #3 pulmonary hypertension #4 chronic obstructive pulmonary disease #5 obstructive sleep apnea #6 type 2 diabetes-continue present treatment #7 morbid obesity Code Visit Inpatient E&M: 67816 Subs Hosp L2
--- NOTE | 2019-11-02 19:29 | NURSING ---
during shift to shift report, pt states 'I broke up with my boyfriend so being discharged is a problem.' asked pt if she has anywhere else to go and she said she's working on it.
--- NOTE | 2019-11-02 23:42 | NURSING ---
Report given to Marlen Silverman RN at this time. She will be taking over care of this patient.
[2019-11-03 00:01] LABS: Bedside Glucose 210 mg/dL (70-110)
[2019-11-03 03:55] VITALS: BP 127/70; PULSE 79; RESP 18; TEMP 36.6; O2SAT 95
--- NOTE | 2019-11-03 04:00 | NURSING ---
Notified my MEDIA RELATIONS SPECIALIST that pt was c/o back pain. PRN tylenol not due until 0450. PRN morphine on EMAR however pt has not IV access. Notified Dr. Suazo. Order for kpad received.
--- NOTE | 2019-11-03 04:40 | NURSING ---
Pt requesting to talk to nurse. Upon entering pts room, pt upset and yelling at nurse. Refusing to use KPAD bc it makes her to hot. Dr. Suazo notified and ordered Lidoderm patches. Pt refusing lidoderm patches, states she wants a pain shot Pt was encouraged to try Lidoderm patches. Unhappy with this nurse. Pt states she wants to talk to someone above you. Esther, PCU charge nurse notified.
[2019-11-03] MEDS: Insulin Lispro 100 UNIT/ML INSULN.PEN SC ×2 (05:34→11:12)
[2019-11-03] MEDS: Enoxaparin 40 MG/0.4 ML Syringe SC (05:34)
[2019-11-03 05:41] LABS: Bedside Glucose 253 mg/dL (70-110)
--- NOTE | 2019-11-03 06:00 | NURSING ---
Pt c/o pain to b/l arm from bruising. Requesting pain medication. PRN tylenol offered and pt continues to refuse. States tylenol does nothing and she wants something stronger for pain Charge nurse notified and in to see pt.
[2019-11-03 06:43] VITALS: PULSE 88; RESP 18; O2SAT 96
[2019-11-03] MEDS: Ipratropium/Albuterol Sulfate 3 ML AMPUL.NEB INHALATION (06:43)
[2019-11-03] MEDS: Acetaminophen 325 MG Tablet 650 MG PO (07:19)
[2019-11-03] MEDS: predniSONE 20 MG Tablet 40 MG PO (08:50)
[2019-11-03] MEDS: hydroCHLOROthiazide 25 MG Tablet PO (08:50)
[2019-11-03] MEDS: Pantoprazole Sodium 20 MG Tablet PO (08:50)
[2019-11-03] MEDS: Lisinopril 40 MG Tablet PO (08:51)
[2019-11-03] MEDS: amLODIPine 10 MG Tablet PO (08:51)
[2019-11-03 09:24] VITALS: BP 147/60; PULSE 89; RESP 16; TEMP 36.4; O2SAT 93
--- NOTE | 2019-11-03 10:52 | DCINST_ITS ---
- Discharge Diagnoses Current Active Problems: Current Active and Chronic Problems (Last Reviewed 04/06/19 @ 10:28 by DILMA Ferreira) Acute on chronic respiratory failure with hypoxia and hypercapnia (Acute) COPD exacerbation (Acute) Pneumonia (Acute) HLD (hyperlipidemia) (Chronic) You will use the following diet at home:: Calorie/Carbohydrate Controlled (specify 1200, 1400, etc) - 1800 david Your food should be the consistency of: Regular Your liquids should be the consistency of: Regular/Thin Discharge Activity: Return to Normal Activity Weight Bearing Status: Full weight bearing Additional Instructions: USE TRILOGY DIRECTED Allergies/Adverse Reactions: Allergies aspirin Allergy (Verified 10/31/19 04:01) Anaphylaxis cyclobenzaprine HCl [From Flexeril] Allergy (Verified 10/31/19 04:01) Rash levofloxacin [From Levaquin] Allergy (Verified 10/31/19 04:01) Rash naproxen [From Naprosyn] Allergy (Verified 10/31/19 04:01) Anaphylaxis bupropion HCl [From Wellbutrin] Adverse Reaction (Verified 10/31/19 04:01) nightmares NIGHTMARES doxycycline Adverse Reaction (Verified 10/31/19 04:01) Diarrhea Medications to take at Discharge Amlodipine [Norvasc] 10 mg PO DAILY 08/13/15 Lisinopril [Zestril] 40 mg PO DAILY 02/11/16 Hydrochlorothiazide [Hctz] 25 mg PO DAILY 10/26/17 epinephrine 1 mg/mL injection kit 1 mg IM Q10M PRN #1 ea 11/13/17 Ipratropium/Albuterol Sulfate [Duoneb] 3 ml INHALATION 4X/DAY 03/10/18 Omeprazole 1 tab PO BREAKFAST 06/09/18 Albuterol Aerosols [Ventolin Aerosols] 2.5 mg INHALATION Q4H PRN PRN 03/13/19 Albuterol Sulfate [Ventolin Hfa] 90 mcg INHALATION Q4H PRN 03/13/19 Oxygen, Home [Home Oxygen] 4 - 6 lpm NASAL PRN PRN #0 04/06/19 aclidinium bromide 400 mcg/actuation breath activated powder inhaler 1 inh INHALATION BID #1 ea 04/06/19 budesonide-formoterol HFA 160 mcg-4.5 mcg/actuation aerosol inhaler 2 puff INHALATION BID #1 ea 04/06/19 Insulin Glargine,Hum.rec.anlog [Basaglar Kwikpen U-100] 30 unit SQ DAILY #1 insuln.pen 11/03/19 Prednisone 10 mg PO UD #30 tab 11/03/19 The following prescriptions were given: Insulin Glargine,Hum.rec.anlog [Basaglar Kwikpen U-100] 30 unit SQ DAILY #1 insuln.pen Prednisone 10 mg PO UD #30 tab Prescription Printed Primary Care Physician: Rita Melton MD [Primary Care Provider] - Test Results: Test results from this visit will be discussed in further detail at your follow- up appointment, if applicable. Please Follow Up With: Adilson Myers, When: in two weeks
--- NOTE | 2019-11-03 10:56 | CPS ---
Discussed NIV (trilogy) use with this patient. Patient stated at first she thought it was just a CPAP machine and did not know it was called a trilogy unit. I explained to patient what a trilogy is and the importance of using the machine at night and with naps to keep her CO2 levels from being elevated. Patient told me she didn't want to use it because her boyfriend wouldn't sleep with her, this RT told her her breathing and life are more important. Patient understood. I explained the risks of not using the machine, readmittance to the hospital, intubation & ventilatory support, pt again understood. I asked patient if she knew how to put the mask on and turn on the machine and she said her homecare company showed her how to do those things, she did not want to show me at this time. Also explained to patient if she has any questions further to contact her homecare company and to make sure she is using the trilogy with naps to get acclimated and to be compliant.
[2019-11-03 11:21] LABS: Bedside Glucose 356 mg/dL (70-110)
--- NOTE | 2019-11-03 11:47 | PN_ITS ---
Patient Problems: Active and Suspected Problems (Last Reviewed 04/06/19 @ 10:28 by Danni Bahena NP-Shoaib) Acute on chronic respiratory failure with hypoxia and hypercapnia (Acute) COPD exacerbation (Acute) Pneumonia (Acute) Subjective: Patient did well overnight. For the first time during hospitalization, patient is not screaming out in pain and actually conversive. Patient states that she used her trilogy overnight, but this was not documented by respiratory staff. Patient believes her breathing is at her baseline and she has been on 2 L nasal cannula. - Physical Exam Vitals/I&O's: Vital Signs Temp Pulse Resp BP Pulse Ox 36.4 C L 89 16 147/60 H 93 11/03/19 09:24 11/03/19 09:24 11/03/19 09:24 11/03/19 09:24 11/03/19 09:24 Oxygen Flow Rate (L/min) 2 Oxygen Delivery Method Nasal Cannula Weight: 108.3 kg Body Mass Index (BMI) 43.7 Intake and Output for Last 24 Hours 11/01/19 11/02/19 11/03/19 23:59 23:59 23:59 Intake Total 756.67 / 876.67 618.33 / 1218.33 800 / 800 Output Total 1650 / 2200 3750 / 4150 400 / 400 Balance -893.33 / -1323.33 -3131.67 / -2931.67 400 / 400 General: Alert, Oriented x3, Cooperative, No apparent distress, - - Morbidly obese. Speaking in full sentences. HEENT: Atraumatic, PERRLA, EOMI, Normocephalic, - - No scleral icterus or injection noted Oral: Moist Mucosa, No Gingival or Mucosal Lesions/ Ulcerations Neck: Supple, No JVD, No Nodes, Trachea Midline Lungs: No rhonchi, No wheeze, No rales, Diminished Cardiovascular: Regular rate, Regular Rhythm, Normal S1, Normal S2, No murmurs, No rub noted, No Gallop Abdomen: Bowel Sounds Present, Soft, Non Tender, Non-Distended, Obese Extremities: No cyanosis, Capillary Refill Less than 3 Seconds, Edema Skin: No rashes, No breakdown Musculoskeletal: No Tenderness to Palpation of Joints or Extremities Lymphatic: No Cervical, Supraclavicular, or Inguinal Adenopathy Neurological: Cranial nerves II-XII grossly intact, Neuro grossly intact, Motor Exam 5/5 strength throughout Psych/Mental Status: Alert and oriented to time, place, person, mood and affect Microbiology Past 72 Hours 10/31/19 09:10 Mucosa - Nasopharyngeal Respiratory Panel (PCR) - Final 10/31/19 09:00 Urine, Clean Catch Legionella Antigen - Final 10/31/19 09:00 Urine, Clean Catch Streptococcus pneumoniae Antigen (M - Final Laboratory Results 11/02/19 14:32: POC Glucose 221 H 11/02/19 16:30: POC Glucose 243 H 11/02/19 23:55: POC Glucose 210 H 11/03/19 05:33: POC Glucose 253 H 11/03/19 11:11: POC Glucose 356 H Current Medications Acetaminophen (Tylenol) 650 mg PO Q6H PRN PRN PRN Reason: Non-cardiac pain () Last Admin: 11/03/19 07:19 Dose: 650 mg Documented by: Al Hydroxide/Mg Hydroxide (Mylanta Ii) 15 - 30 ml PO Q4H PRN PRN PRN Reason: INDIGESTION Albuterol Sulfate (Ventolin Aerosols) 2.5 mg INHALATION Q2H PRN PRN PRN Reason: dyspnea, wheezing Albuterol/Ipratropium (Duoneb) 3 ml INHALATION Q4HWA.RT [facility] Last Admin: 11/03/19 10:15 Dose: Not Given Documented by: Amlodipine Besylate (Norvasc) 10 mg PO DAILY [facility] Last Admin: 11/03/19 08:51 Dose: 10 mg Documented by: Enoxaparin Sodium (Lovenox) 40 mg SC DAILY@0600 [facility] Last Admin: 11/03/19 05:34 Dose: 40 mg Documented by: Glucagon () 1 mg IM .X1 PRN PRN Reason: Hypoglycemia Guaifenesin (Robitussin) 20 ml PO Q4H PRN PRN PRN Reason: COUGH Hydralazine HCl (Apresoline Iv) 10 mg IV Q4H PRN PRN PRN Reason: SBP > 160 Hydrochlorothiazide (Hctz) 25 mg PO DAILY [facility] Last Admin: 11/03/19 08:50 Dose: 25 mg Documented by: Sodium Chloride () 250 mls @ 15 mls/hr IV .[id number] PRN PRN Reason: Saline Flush Dextrose (Dextrose 10%-Water) 250 mls @ 999 mls/hr IV X1 PRN; Protocol PRN Reason: HYPOGLYCEMIA Insulin Human Lispro (Humalog Kwikpen (Bkc)) 0 unit SC Q6 [facility]; Protocol Last Admin: 11/03/19 11:12 Dose: 12 units Documented by: Lidocaine (Lidoderm Patch) 2 patch TOPICAL DAILY [facility]; Protocol Last Admin: 11/03/19 05:32 Dose: Not Given Documented by: Lisinopril (Zestril) 40 mg PO DAILY [facility] Last Admin: 11/03/19 08:51 Dose: 40 mg Documented by: Magnesium Hydroxide (Milk Of Magnesia) 30 ml PO DAILY PRN PRN Reason: Constipation Melatonin (Melatonin) 3 mg PO QHS PRN PRN PRN Reason: INSOMNIA Morphine Sulfate () 1 - 2 mg IV Q4H PRN PRN PRN Reason: Pain Score 1-10/10 Last Admin: 10/31/19 15:21 Dose: 2 mg Documented by: Ondansetron HCl (Zofran) 4 mg IV Q8H PRN PRN PRN Reason: NAUSEA/VOMITING Last Admin: 11/01/19 02:52 Dose: 4 mg Documented by: Pantoprazole Sodium (Protonix) 20 mg PO BREAKFAST [facility] Last Admin: 11/03/19 08:50 Dose: 20 mg Documented by: Prednisone () 40 mg PO DAILY@0800 [facility] Last Admin: 11/03/19 08:50 Dose: 40 mg Documented by: Sodium Chloride () 10 - 40 ml IV UD PRN PRN Reason: SALINE FLUSH Last Admin: 11/02/19 08:19 Dose: 10 ml Documented by: Throat Lozenges (Cepacol Sore Throat Lozenge) 1 lozenge MUCOUS MEM Q2H PRN PRN PRN Reason: Sore Throat/Cough Medical Necessity - Tobacco Use Smoking Status: Former smoker - Although suspect ongoing tobacco usage. Tobacco Use: Cigarettes Assessment/Plan All Active Problems (Last Reviewed 04/06/19 @ 10:28 by Danni Bahena NP-C) Acute on chronic respiratory failure with hypoxia and hypercapnia (Acute) COPD exacerbation (Acute) Pneumonia (Acute) Acute respiratory failure with hypoxia (Acute) Elevated troponin (Acute) Acute respiratory failure with hypoxia and hypercapnia (Acute) History of tubal ligation (Resolved) History of section (Resolved) COPD with acute exacerbation (Acute) Hypertensive urgency (Ruled-out) Otitis media (Ruled-out) Tobacco abuse (Resolved) RECOMMENDATIONS: 1. Continue bronchodilators and steroids as ordered. 2. Wean supplemental oxygen as tolerated. 3. Patient should complete a 5-day course of steroid therapy 4. Increase activity as tolerated 5. Continue AVAPS therapy with naps and nightly. 6. Okay to discharge from a pulmonary perspective IMPRESSIONS: 1. Acute on chronic combined respiratory failure Patient appears to be back to her baseline from a respiratory standpoint. Patient will need a walking oximetry prior to discharge, but is on supplemental oxygen at baseline. Respiratory work-up has been relatively unremarkable. Patient can complete a 5-day course of 40 mg of prednisone from a pulmonary perspective. No indication for a prolonged wean. Did spend significant amount of time stressing the importance of compliance with trilogy to avoid future h ospitalizations. Patient voiced understanding, but was adamant that she wore her machine overnight. 2. Heart failure with preserved ejection fraction/pulmonary hypertension Continue outpatient cardiac medications. 3. Clinical concern for underlying sleep disordered breathing Patient has been set up with a trilogy machine at home. This should be continued with any sleep and would help with patient's chronic respiratory failure. Patient's ABG are not suggestive of emergency BiPAP requirements. 4. Continuous tobacco dependency/diabetes mellitus/morbid obesity/history of medical noncompliance/chronic pain syndrome Complicates care, management, recovery and prognosis. Continue home antihypertensive regimen. Code Visit Inpatient E&M: 03760 Subs Hosp L2
--- NOTE | 2019-11-04 13:06 | CASEMGMT ---
[facility] Discharge Follow-Up Phone Call. Lace: 11 Strata: 3 Discharge Date: 11/03/19 Adm Dx: Acute Resp Failure, COPD/Asthma Exac, CAP Attempted discharge follow-up phone call. No answer and message came on stating VM box has not been set up yet. Unable to leave a message. Betina CUELLAR RN CM
--- NOTE | 2019-11-04 13:44 | PCM.DC.SUM ---
Discharge Date and Diagnosis Date of Admission: 10/31/19 Date of Discharge: 11/03/19 - Primary Discharge Diagnosis #1 acute on chronic combined respiratory failure #2 essential hypertension #3 pulmonary hypertension #4 chronic obstructive pulmonary disease #5 obstructive sleep apnea #6 type 2 diabetes #7 morbid obesity - Secondary Discharge Diagnosis Chronic Problems (Last Reviewed 04/06/19 @ 10:28 by Danni Bahena NP-C) HLD (hyperlipidemia) (Chronic) Morbid obesity with BMI of 40.0-44.9, adult (Chronic) Hypertension (Chronic) COPD exacerbation (Chronic) Tobacco abuse (Chronic) Hypersomnia (Chronic) Benign essential hypertension (Chronic) Herniated thoracic disc without myelopathy (Chronic) Chronic back pain (Chronic) COPD (Chronic) Asthma (Chronic) GERD (gastroesophageal reflux disease) (Chronic) Obesity (BMI 30-39.9) (Chronic) Diabetes mellitus, type II (Chronic) Hospital Course and Treatment Operations: None Procedures: None Summary of Care Provided: The patient is a 48 year old F who was seen in the emergency room at [facility] with a chief complaint of shortness of breath. Patient has home oxygen and has a trilogy machine at home-she states that she does not know how to use the trilogy machine. Work-up in the emergency room revealed her pulse ox to be 77% on room air, 94% on 5 L, CBC was unremarkable, blood chemistry showed a glucose of 216, chest x-ray showed right basilar pulmonary opacity infiltrate versus atelectasis-patient showed no evidence of lobar pneumonia. Patient's influenza screen was negative. Patient was given IV Rocephin and Zithromax due to concerns for pneumonia, she was admitted for exacerbation of COPD and possible community-acquired pneumonia-pulmonary medicine saw the patient and did not feel the patient had a pneumonia and these antibiotics were stopped. Oral corticosteroids were given to the patient. Patient was also seen by respiratory therapy who instructed her on the use of her trilogy machine which she had brought up to the hospital by her mother. On 11/03/2019, patient was seen and examined: On examination she appeared in good health and spirits. Vital signs as documented. Skin warm and dry and without overt rashes. Neck without JVD. Lungs clear. Heart exam notable for regular rhythm, normal sounds and absence of murmurs, rubs or gallops. Abdomen unremarkable and without evidence of organomegaly, masses, or abdominal aortic enlargement. Extremities nonedematous. Neuro: Cranial nerves II through XII are grossly intact, no focal motor deficits were noted, sensation to light touch and pinprick is intact. Psych: Patient is alert and oriented x3, she does not appear anxious or depressed On 11/03/2019, patient was seen and examined and felt to be in stable condition for discharge home Additional note: Patient was not felt to have had heart failure by this examiner. - Physical Exam Vitals/I&O's: Vital Signs Temp Pulse Resp BP Pulse Ox 97.5 F L 89 16 147/60 H 93 11/03/19 09:24 11/03/19 09:24 11/03/19 09:24 11/03/19 09:24 11/03/19 09:24 Oxygen Flow Rate (L/min) 2 Oxygen Delivery Method Nasal Cannula Weight: 108.3 kg Body Mass Index (BMI) 43.7 Intake and Output for Last 24 Hours 11/02/19 11/03/19 11/04/19 23:59 23:59 23:59 Intake Total 618.33 / 1218.33 1250 / 1250 Output Total 3750 / 4150 400 / 400 Balance -3131.67 / -2931.67 850 / 850 Discharge Activity: Return to Normal Activity Weight Bearing Status: Full weight bearing Home Medications: Medications to take at Discharge Amlodipine [Norvasc] 10 mg PO DAILY 08/13/15 Lisinopril [Zestril] 40 mg PO DAILY 02/11/16 Hydrochlorothiazide [Hctz] 25 mg PO DAILY 10/26/17 epinephrine 1 mg/mL injection kit 1 mg IM Q10M PRN #1 ea 11/13/17 Ipratropium/Albuterol Sulfate [Duoneb] 3 ml INHALATION 4X/DAY 03/10/18 Omeprazole 1 tab PO BREAKFAST 06/09/18 Albuterol Aerosols [Ventolin Aerosols] 2.5 mg INHALATION Q4H PRN PRN 03/13/19 Albuterol Sulfate [Ventolin Hfa] 90 mcg INHALATION Q4H PRN 03/13/19 Oxygen, Home [Home Oxygen] 4 - 6 lpm NASAL PRN PRN #0 04/06/19 aclidinium bromide 400 mcg/actuation breath activated powder inhaler 1 inh INHALATION BID #1 ea 05/14/19 budesonide-formoterol HFA 160 mcg-4.5 mcg/actuation aerosol inhaler 2 puff INHALATION BID #1 ea 04/06/19 Insulin Glargine,Hum.rec.anlog [Basaglar Kwikpen U-100] 30 unit SQ DAILY #1 insuln.pen 11/03/19 Prednisone 10 mg PO UD #30 tab 11/03/19 Following Prescrptions Were Given to Patient: Insulin Glargine,Hum.rec.anlog [Basaglar Kwikpen U-100] 30 unit SQ DAILY #1 insuln.pen Prednisone 10 mg PO UD #30 tab Prescription Printed Primary Care Physician: Rita Melton MD [Primary Care Provider] - Please Follow Up With: Adilson Myers DO When: in two weeks Please Follow Up With: Rita Melton MD Disposition: Home Minutes spent on discharge:: 35 Patient Condition:: Stable Medical Necessity - Tobacco Use Smoking Status: Former smoker - Although suspect ongoing tobacco usage. Tobacco Use: Cigarettes Meaningful Use Info Meaningful Use Diagnoses (Choose all that apply): None applicable Code Visit Inpatient E&M: 29086 Disch Hosp
== END 2019-11-03 13:50 | disposition home or self-care (01) | DRG 133 ==
LOC: ED 04:33 → PCU 07:41
PROVIDERS: Internal Medicine Critical Care Medicine; Admitting Provider Family Medicine; Emergency Provider Emergency Medicine; Family Provider Internal Medicine; PCP Internal Medicine; Visit Provider Internal Medicine
DX: J96.21 Acute and chronic respiratory failure with hypoxia (principal); I27.20 Pulmonary hypertension, unspecified; I10 Essential (primary) hypertension; J44.9 Chronic obstructive pulmonary disease, unspecified; E11.9 Type 2 diabetes mellitus without complications; K21.9 Gastro-esophageal reflux disease without esophagitis; J96.22 Acute and chronic respiratory failure with hypercapnia; G47.33 Obstructive sleep apnea (adult) (pediatric); Z68.41 Body mass index [BMI] 40.0-44.9, adult; E66.01 Morbid (severe) obesity due to excess calories; F17.210 Nicotine dependence, cigarettes, uncomplicated; G89.4 Chronic pain syndrome; Z79.4 Long term (current) use of insulin; Z99.81 Dependence on supplemental oxygen
CPT/HCPCS: 36415; 36600; 71045; 80048; 80076; 82550; 82803; 82962; 83605; 83690; 83735; 84484; 85025; 87449; 87633; 87804; 93005; 94640; 97802; 99251; 99285; J7030; J7050; A4216; G0463; J0696; J2405

== ENCOUNTER 2020-05-23 15:10 | Emergency (ER) | payer MEDICAID, SELFPAY ==
[2019-10-31 08:08] VITALS: BMI 43.7
[2020-05-23 15:11] VITALS: BP 151/93; PULSE 110; RESP 20; TEMP 36.5; O2SAT 96; BMI 36.6
--- NOTE | 2020-05-23 15:43 | RAD_ITS ---
STUDY: X-RAY CHEST REASON FOR EXAM: Female, 49 years old. Difficulty breathing, shortness of breath. TECHNIQUE: Single frontal view of the chest. COMPARISON: October 31, 2019 FINDINGS: The lungs are clear and expanded. There is no demonstrated pleural abnormality. Normal size heart. Normal mediastinum and milton. Normal visualized pulmonary arteries. Normal visualized aortic arch and descending thoracic aorta. Normal visualized thoracic spine. Normal visualized ribs, clavicles, and shoulders. There is no demonstrated abnormality of the visualized soft tissue structures of the upper abdomen. RAD/Chest 1 View (Portable) IMPRESSION: Normal x-ray examination of the chest. Electronically Signed: Kirit Shah MD at 16:34 EDT , Service support ,
--- NOTE | 2020-05-23 15:43 | EKG12_ITS ---
Test Reason : SOB Blood Pressure : / mmHG Vent. Rate : 095 BPM Atrial Rate : 095 BPM P-R Int : 142 ms QRS Dur : 076 ms QT Int : 362 ms P-R-T Axes : 057 088 038 degrees QTc Int : 454 ms Normal sinus rhythm Normal ECG Confirmed by SASKIA COBURN ([id number]), greeting card editor DOV LONGO ([id number]) on 05/25/2020 11:48:33 AM Referred By: MAYO Confirmed By:SASKIA COBURN
--- NOTE | 2020-05-23 15:51 | ED.DCSUM_ITS ---
History of Present Illness Chief Complaint: Shortness of Breath Informant: Patient Onset: Days Context: Gradual Onset Timing: Continuous Current Severity: Mild Maximum Severity: Moderate Narrative: The patient is a 49-year-old female with medical history significant for chronic respiratory failure secondary to COPD who is on 4 L of oxygen at home that presents to the emergency department shortness of breath. The patient states that she is had a difficult time getting all the necessary supplies that she needs. She is supposed to be on 4 L and has a nasal concentrator. She states that she was unable to get new cannulas. She states that her BiPAP has not been serviced. She states because of her lack of oxygen, she was feeling generally fatigued and short of breath. She is had a scant cough. She denies any fevers or chills. She denies any chest pain. She states she is just been frustrated because she cannot get her essential supplies. Prior similar symptoms: Yes Recent Illness/Hospitalization: No Past Medical History - Allergies and Home Meds Allergies/Adverse Reactions: Allergies aspirin Allergy (Verified 10/31/19 04:01) Anaphylaxis cyclobenzaprine HCl [From Flexeril] Allergy (Verified 10/31/19 04:01) Rash levofloxacin [From Levaquin] Allergy (Verified 10/31/19 04:01) Rash naproxen [From Naprosyn] Allergy (Verified 10/31/19 04:01) Anaphylaxis bupropion HCl [From Wellbutrin] Adverse Reaction (Verified 10/31/19 04:01) nightmares NIGHTMARES doxycycline Adverse Reaction (Verified 10/31/19 04:01) Diarrhea Primary Care Physician: Rita Melton MD [Primary Care Provider] - Prior records reviewed: Yes Past Medical History: - - COPD, hypertension, hyperlipidemia Surgical History: noncontributory, - - Bilateral tubal ligation, . Smoking Status: Former smoker - Although suspect ongoing tobacco usage. - Family History Sibling Family History: Family History (Last Reviewed 04/06/19 @ 10:28 by DILMA Ferreira) Mother Breast cancer Cancer Father COPD (chronic obstructive pulmonary disease) Hypertension Heart disease Cancer Family History: Reports: Pulmonary Disease - age 34 secondary to pulm onary hypertension Maternal Family History: Family History (Last Reviewed 04/06/19 @ 10:28 by DILMA Ferreira) Mother Breast cancer Cancer Father COPD (chronic obstructive pulmonary disease) Hypertension Heart disease Cancer Family History: Reports: Cancer - alive age 63, breast and skin Paternal Family History: Family History (Last Reviewed 04/06/19 @ 10:28 by DILMA Ferreira) Mother Breast cancer Cancer Father COPD (chronic obstructive pulmonary disease) Hypertension Heart disease Cancer Family History: Reports: Cancer - Skin cancer, COPD - alive age 65, Heart Disease, Hypertension, No pertinent history Review of Systems General: Denies: Chills, Fever, Sweats Eyes: Denies: Visual changes - bilaterally, Diplopia ENT: Denies: Rhinorrhea, Sore throat Cardiovascular: Denies: Chest pain, Palpitations Respiratory: Reports: Dyspnea. Denies: Cough, Dyspnea on exertion Gastrointestinal: Denies: Abdominal pain, Nausea, Vomiting, Diarrhea, Melena, Hematochezia Genitourinary: Denies: Dysuria, Hematuria, Frequency Musculoskeletal: Denies: Back pain, Extremity Pain Skin: Denies: Rash, Wounds Neurological: Denies: Headache, Weakness, Numbness Physical Exam Vital Signs/Narrative: Vital Signs Temp Pulse Resp BP Pulse Ox 05/23/20 15:11 97.7 F L 110 H 20 H 151/93 H 96 Inital Vital Signs reviewed: Yes General: Well nourished, Well developed, No Acute Distress Head: Normocephalic, Atraumatic Eyes: Perrl, EOMI ENT: Moist mucous membranes, No rhinorrhea Neck: Supple, Nontender Cardiovascular: Regular rate, Regular rhythm, No murmurs Respiratory: No distress, Chest nontender, Wheezing Abdomen: Soft, Nontender, Nondistended, Normal bowel sounds Back: Nontender, Normal Inspection Extremities: Nontender, No edema Skin: Normal color, No rash Neurological: Alert, Oriented x3, Cranial nerves II-XII grossly intact, Normal Strength, Normal Sensation Psychological: Normal affect, Normal Mood Diagnostic/Tx/Re-eval Clinical Impression(s) from Imaging Studies Chest X-Ray 05/23/20 15:43 IMPRESSION: Normal x-ray examination of the chest. Electronically Signed: Kirit Shah MD at 16:34 EDT , Service support , Abnormal Lab Results 05/23/20 05/23/20 16:03 16:03 WBC 10.5 RBC 5.71 H Hgb 16.6 H Hct 52.6 H MCV 92.1 MCH 29.1 MCHC 31.6 L RDW Std Deviation 44.9 H RDW Coeff of Marcy 13.6 Plt Count 446 MPV 10.8 Immature Gran % (Auto) 0.300 Neut % (Auto) 78.2 H Lymph % (Auto) 12.5 L [place] % (Auto) 8.1 Eos % (Auto) 0.4 Baso % (Auto) 0.5 Absolute Neuts (auto) 8.2 H Absolute Lymphs (auto) 1.31 Nucleated RBC % 0 Sodium 135 L Potassium 5.3 H Chloride 96 L Carbon Dioxide 34.0 H Anion Gap 5 BUN 15 Creatinine 0.61 Estim Creat Clear Calc 89.20 Est GFR (MDRD) Af Amer 134 Est GFR (MDRD) Non-Af 111 BUN/Creatinine Ratio 24.5 H Glucose 182 H Calcium 8.8 - Medical Decision Making The patient presents to the emergency department shortness of breath. She feels that secondary to the fact she has been without her appropriate oxygen supplies for the past few days. The patient was transitioned to nasal cannula here on her normal 4 L. Her oxygen status had improved. Metabolic work-up was pursued. EKG was sinus rhythm without acute ischemia. Chest x-ray shows no focal productive process. Rest of labs are unremarkable. Patient was evaluated in consultation with social work. We were able to arrange with her oxygen company the appropriate resources. At this point, the patient will be discharged home. Impression 1. Hypoxia secondary to lack of supplemental oxygen ED Disposition - Plan for ED Patient: Instructions: ED COPD Flare Referrals: Rita Melton MD [Primary Care Provider] -
[2020-05-23] MEDS: Ipratropium/Albuterol Sulfate 3 ML AMPUL.NEB INHALATION (15:57)
[2020-05-23 15:58] VITALS: PULSE 99; RESP 16
[2020-05-23] MEDS: Albuterol 2.5 MG/3 ML VIAL.NEB. INHALATION (16:06)
[2020-05-23 16:29] VITALS: PULSE 98; RESP 18; O2SAT 93
[2020-05-23 16:29] LABS: Absolute Lymphocyte Count 1.31 X10^3/uL (0.83-4.51); Absolute Neutrophil Count 8.2 X10^3/uL (2.0-7.7); Basophil# 0.05 X10^3/uL; Basophil% 0.5 % (0-1); Eosinophil# 0.04 X10^3/uL; Eosinophils% 0.4 % (0-5); Hematocrit 52.6 % (37-47); Hemoglobin 16.6 g/dL (12.0-15.0); Lymphocyte # 1.31 X10^3/ul (4.0); Lymphocyte % 12.5 % (19-41); Mean Corp Hgb Conc 31.6 g/dL (32-36); Mean Corpuscular Hgb 29.1 pg (27.0-32.0); Mean Corpuscular Volume 92.1 fL (81-99); Mean Platelet Vol. 10.8 fl (6.2-12.0); Monocyte# 0.85 X10^3/uL; Monocyte% 8.1 % (0-10); NRBC Flagged by Analyzer 0 % (0-5); Neutrophil % 78.2 % (47-70); Platelet Count 446 K/mm3 (150-450); RBC Distribution Width CV 13.6 % (11.6-14.6); RBC Distribution Width SD 44.9 fl (35.1-43.9); Red Blood Count 5.71 M/mm3 (4.2-5.4); White Blood Count 10.5 K/mm3 (4.4-11.0)
--- NOTE | 2020-05-23 16:35 | CM.ED ---
SOCIAL WORK Informant: Dr. Wiggins Reason for Consult: Resources Chief Compliant: Shortness of breath. Patient believes due to not having oxygen supplies. Met with patient in room. Introduced role and reason for referral. Patient states provider for oxygen used to be [facility] and states when they went out of business was switched to [facility]. Patient states also has home vent and concentrator from [facility]. Patient states equipment is needing serviced and when she went to [facility] yesterday to obtain new tubing, they informed her equipment has not been paid for and must contact [facility]. Patient requesting this worker follow up with O2 providers. Call to [facility] and spoke with Subhash. Per Subhash, patient does have O2 through [facility] and they have been her provider since 2016. Subhash reports they have not serviced patient in quite some time and will follow up with patient. New contact number for patient provided, . Call to [facility]. Per worker, patient has non invasive vent and 24 hour O2. Patient was informed yesterday her claim for O2 had been denied as [facility] is provider. Worker reports [facility] has been trying to get in contact with her since 2018. Worker states I'm new and will have my network manager you. Received call from [facility] with [facility]. Per [facility], if patient wishes to continue having [facility] as provider, patient must contact [facility] and have them sampler pickup equipment to cancel services with them so [facility] can bill insurance. Updated patient on the above. Facilitated call to [facility] and spoke with Subhash. Updated patient wishes to have [facility] as provider. Subhash reports [facility] will follow up with patient. Collaboration with Dr. Wiggins. Updated on the above. No further needs. Plan: Home Curtis Mccurdy, JAVA XML DEVELOPER, PHARMACEUTICAL SALES SPECIALIST
[2020-05-23 16:45] LABS: Anion Gap 5 (5-15); BUN 15 mg/dL (7-18); BUN/Creat Ratio 24.5 RATIO (10-20); Calcium,Total 8.8 mg/dL (8.5-10.1); Chloride 96 mmol/L (98-107); Creatinine, Serum 0.61 mg/dL (0.55-1.02); EST Glomerular Filtration Rate 111 mL/min (>60); Est Glom Filt Rate - Afr Amer 134 mL/min (>60); Glucose 182 mg/dL (74-106); Potassium 5.3 mmol/L (3.5-5.1); Sodium Level 135 mmol/L (136-145)
[2020-05-23 17:05] VITALS: BP 134/87; PULSE 96; RESP 25; O2SAT 95
== END 2020-05-23 17:46 | disposition home or self-care (01) ==
LOC: ED 16:32
PROVIDERS: Emergency Provider Emergency Medicine; PCP Internal Medicine
DX: R09.02 Hypoxemia (principal); Z87.891 Personal history of nicotine dependence
CPT/HCPCS: 71045; 80048; 85025; 93005; 94640; 99251; 99284; G0463

== ENCOUNTER 2020-07-11 09:37 | Emergency (ER) | payer MEDICAID, SELFPAY ==
[2020-07-11 09:38] VITALS: BP 137/98; PULSE 89; RESP 28; TEMP 36.3; O2SAT 91; BMI 36.6
--- NOTE | 2020-07-11 09:46 | EKG12_ITS ---
Test Reason : Blood Pressure : / mmHG Vent. Rate : 086 BPM Atrial Rate : 086 BPM P-R Int : 136 ms QRS Dur : 076 ms QT Int : 364 ms P-R-T Axes : 071 078 041 degrees QTc Int : 435 ms Normal sinus rhythm Normal ECG Confirmed by SASKIA COBURN ([id number]), editor index ELISABETH CANCINO ([id number]) on 07/17/2020 9:57:33 AM Referred By: CM Confirmed By:SASKIA COBURN
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
[2020-07-11 09:58] VITALS: O2SAT 96
[2020-07-11 10:04] LABS: Absolute Lymphocyte Count 1.65 X10^3/uL (0.83-4.51); Absolute Neutrophil Count 7.6 X10^3/uL (2.0-7.7); Basophil# 0.09 X10^3/uL; Basophil% 0.9 % (0-1); Hematocrit 54.3 % (37-47); Hemoglobin 16.8 g/dL (12.0-15.0); Lymphocyte # 1.65 X10^3/ul (4.0); Mean Corp Hgb Conc 30.9 g/dL (32-36); Mean Corpuscular Hgb 29.6 pg (27.0-32.0); Mean Corpuscular Volume 95.6 fL (81-99); Mean Platelet Vol. 10.7 fl (6.2-12.0); Monocyte# 0.82 X10^3/uL; Monocyte% 7.9 % (0-10); NRBC Flagged by Analyzer 0 % (0-5); Neutrophil # 7.64 X10^3/uL (2.7-7.7); Neutrophil % 73.9 % (47-70); Platelet Count 423 K/mm3 (150-450); RBC Distribution Width CV 12.9 % (11.6-14.6); Red Blood Count 5.68 M/mm3 (4.2-5.4); White Blood Count 10.3 K/mm3 (4.4-11.0)
[2020-07-11] MEDS: Ipratropium/Albuterol Sulfate 3 ML AMPUL.NEB INHALATION (10:18)
[2020-07-11 10:20] VITALS: PULSE 90; RESP 25; O2SAT 95
[2020-07-11] MEDS: predniSONE 20 MG Tablet 60 MG PO (10:20)
[2020-07-11 10:21] LABS: Anion Gap 1 (5-15); BUN 10 mg/dL (7-18); Calcium,Total 9.7 mg/dL (8.5-10.1); Chloride 97 mmol/L (98-107); Creatinine, Serum 0.56 mg/dL (0.55-1.02); EST Glomerular Filtration Rate 124 mL/min (>60); Est Glom Filt Rate - Afr Amer 150 mL/min (>60); Estimated Creatinine Clearance 97.17 ml/min; Glucose 237 mg/dL (74-106); Potassium 4.3 mmol/L (3.5-5.1); Sodium Level 137 mmol/L (136-145)
[2020-07-11 10:30] VITALS: O2SAT 96
--- NOTE | 2020-07-11 10:45 | RAD_ITS ---
STUDY: X-RAY CHEST REASON FOR EXAM: Female, 49 years old. COUGH AND SOB X 2 DAYS TECHNIQUE: Single AP portable view of the chest. COMPARISON: 05/23/2020. FINDINGS: Cardiomegaly. Pulmonary vascularity unremarkable. Aorta unremarkable. No focal patchy airspace opacities. No pleural effusions. COPD with coarse lung markings. Upper abdomen unremarkable. Osseous structures intact. No pneumothorax. RAD/Chest 1 View (Portable) IMPRESSION: No acute cardiopulmonary findings Electronically Signed: Robin Gastelum DO at 11:12 EDT Tel , Service support ,
[2020-07-11 11:37] VITALS: BP 149/74; PULSE 92; RESP 18; O2SAT 97
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
[2020-07-11 13:00] VITALS: BP 172/97; PULSE 102; RESP 18; O2SAT 94
--- NOTE | 2020-07-11 14:11 | CM.ED ---
Social Work Patient negative COVID-[address] Nuno patient does not meet criteria for inpatient stay. This social media sr strategy manager meeting with patient in room. Patient aware that patient does not qualify for admission. This social media sr strategy manager educating patient that patient insurance would need to approve shelter and approval process could take days. Patient [facility] not able to [facility] to [facility] due to [facility] usage. Patient now states to want to discharge to home with boyfriend and to be okay with this. Patient is open to [place] Waiver referral and provided information/guidance on how to apply for disability. Patient voicing no further concerns or questions. Support provided. Patient able to call for law enforcement if patient is concerned for patient safety. [place] Waiver application faxed to [facility]. Kimberly MONTEMAYOR, BERNARD
== END 2020-07-11 15:42 | disposition home or self-care (01) ==
PROVIDERS: Emergency Provider Emergency Medicine; PCP Internal Medicine
DX: J44.1 Chronic obstructive pulmonary disease with (acute) exacerbation (principal); E11.9 Type 2 diabetes mellitus without complications; I10 Essential (primary) hypertension; Z79.4 Long term (current) use of insulin; Z87.891 Personal history of nicotine dependence; Z99.81 Dependence on supplemental oxygen
CPT/HCPCS: 36415; 71045; 80048; 83880; 84484; 85025; 87040; 87635; 93005; 94640; 94799; 99283; A4216; U0003

== ENCOUNTER 2020-10-12 19:30 | Emergency (ER) | payer MEDICAID, SELFPAY ==
[2020-10-12 19:32] VITALS: BP 157/74; PULSE 100; RESP 18; TEMP 36.6; O2SAT 97; BMI 40.2
[2020-10-12 20:11] LABS: Color, Urine Yellow (Yellow); Glucose, Dipstick 1000 mg/dl (Normal); Ketone-Dipstick 5 mg/dl (Negative); Leukocyte Esterase-Dipstick 100 /ul (Negative); Nitrite-Dipstick Negative (Negative); Occult Blood-Urine 25 /ul (Negative); Protein-Dipstick 100 mg/dl (Negative); Urine Bilirubin Dipstick Negative (Negative); Urine Clarity Cloudy (Clear); Urine Urobilinogen 1 mg/dl (Normal)
--- NOTE | 2020-10-12 20:28 | US_ITS ---
STUDY: ABDOMINAL ULTRASOUND - RIGHT UPPER QUADRANT REASON FOR VISIT: Female, 49 years old RT FLANK PAIN AND NAUSEA TECHNIQUE: Ultrasound evaluation of the right upper quadrant was performed with real-time and static tobar-scale imaging. TECHNICAL QUALITY: Adequate. COMPARISON: CT abdomen 06/09/2018. FINDINGS: Liver: The liver measures 19.3 cm. There is increased echogenicity consistent with fatty infiltration. The bile ducts are within normal limits. There is hepatic color flow. The direction of portal flow is hepatopetal. There is no demonstrated mass lesion. Gallbladder: Normal distended gallbladder. The gallbladder wall measures 2 mm. There is a negative sonographic Parks''s sign. There is no pericholecystic fluid. There are no gallstones. Common Bile Duct (C.B.D.): The common bile duct measures 4 mm. Pancreas: The visualized pancreas is unremarkable. The tail is not seen. There is normal echogenicity of the pancreas. Minimally dilated pancreatic duct measures 3 mm. Right Kidney: Normal size of the right kidney. The right kidney measures 10.1 x 4.9 x 5.2 cm. Normal renal cortex. The right cortex measures 1.4 cm. 1.4 x 1.4 cm mid pole cyst. There is no right hydronephrosis. US/Abdomen Limited IMPRESSION: 1. No acute findings. 2. Hepatic steatosis. Electronically Signed: Belinda Santos MD at 22:01 EST Tel , Service support ,
--- NOTE | 2020-10-12 20:36 | ED.VIS.GEN ---
History of Present Illness Chief Complaint: Flank Pain Detail of Chief Complaint: Right upper quadrant abdominal pain radiating through to the back Onset: Days - Onset approximately 3 days ago Context: Sudden Onset Timing: Continuous, Waxes and wanes Quality: Severe waxing and waning pain Location: Right upper quadrant Current Severity: Moderate Maximum Severity: Severe Worsened by: Movement Relieved by: Nothing Associated Symptoms: Nausea and radiation to the back Narrative: Patient is a heavyset woman who presents with right upper quadrant abdominal pain that started 3 days ago the radiates through to her back. Associated with nausea. She denies fever, chills night sweats. She denies URI symptoms. She denies cardiac symptoms. She denies shortness of breath, cough or pleuritic chest pain. She denies leg pain, swelling discoloration. She denies vomiting or diarrhea. She denies black or maroon stool. She denies dysuria, frequency, urgency or hematuria. Prior similar symptoms: No Recent Illness/Hospitalization: No - Past Medical History (1) COPD exacerbation Status: Acute (2) Pneumonia Status: Acute (3) Chronic back pain Status: Chronic (4) Diabetes mellitus, type II Status: Chronic (5) GERD (gastroesophageal reflux disease) Status: Chronic (6) HLD (hyperlipidemia) Status: Chronic (7) Herniated thoracic disc without myelopathy Status: Chronic (8) Hypersomnia Status: Chronic (9) Hypertension Status: Chronic (10) Morbid obesity with BMI of 40.0-44.9, adult Status: Chronic (11) Tobacco abuse Status: Chronic (12) History of section Status: Resolved (13) History of tubal ligation Status: Resolved Past Medical History - Allergies and Home Meds Allergies/Adverse Reactions: Allergies aspirin Allergy (Verified 10/12/20 19:35) Anaphylaxis cyclobenzaprine HCl [From Flexeril] Allergy (Verified 10/12/20 19:35) Rash levofloxacin [From Levaquin] Allergy (Verified 10/12/20 19:35) Rash naproxen [From Naprosyn] Allergy (Verified 10/12/20 19:35) Anaphylaxis bupropion HCl [From Wellbutrin] Adverse Reaction (Verified 10/12/20 19:35) nightmares NIGHTMARES doxycycline Adverse Reaction (Verified 10/12/20 19:35) Diarrhea Primary Care Physician: Rita Melton MD [Primary Care Provider] - Surgical History: noncontributory, - - Bilateral tubal ligation, . Lives: Spouse/ Significant Other Smoking Status: Current some day smoker Alcohol: Rare Drugs: None - Family History Sibling Family History: Family History (Last Reviewed 04/06/19 @ 10:28 by Danni Bahena NP, METAL TRADES INSTRUCTOR-C) Mother Breast cancer Cancer Father COPD (chronic obstructive pulmonary disease) Hypertension Heart disease Cancer Family History: Reports: Pulmonary Disease - age 34 secondary to pulmonary hypertension Maternal Family History: Family History (Last Reviewed 04/06/19 @ 10:28 by Danni Bahena NP, METAL TRADES INSTRUCTOR-C) Mother Breast cancer Cancer Father COPD (chronic obstructive pulmonary disease) Hypertension Heart disease Cancer Family History: Reports: Cancer - alive age 63, breast and skin Paternal Family History: Family History (Last Reviewed 04/06/19 @ 10:28 by Danni Bahena NP, METAL TRADES INSTRUCTOR-C) Mother Breast cancer Cancer Father COPD (chronic obstructive pulmonary disease) Hypertension Heart disease Cancer Family History: Reports: Cancer - Skin cancer, COPD - alive age 65, Heart Disease, Hypertension, No pertinent history Review of Systems General: Denies: Chills, Fever, Malaise, Subjective Eyes: Denies: Visual changes - bilaterally, Blurred Vision - bilaterally ENT: Denies: Rhinorrhea, Sore throat Cardiovascular: Denies: Chest pain, Palpitations Respiratory: Denies: Dyspnea, Cough, Sputum, Dyspnea on exertion, Orthopnea Gastrointestinal: Reports: Abdominal pain, Nausea. Denies: Vomiting, Diarrhea, Constipation, Melena, Hematochezia Genitourinary: Denies: Dysuria, Hematuria, Frequency Musculoskeletal: Reports: Back pain. Denies: Myalgias, Arthralgias, Neck pain, Swelling, Extremity Pain Skin: Denies: Rash, Wounds Neurological: Denies: Headache, Weakness, Parasthesia Psych: Denies: Depression, Anxiety Hematologic: Denies: Easy bruising, Easy bleeding Allergy: Denies: Uticaria Physical Exam Vital Signs/Narrative: Vital Signs Temp Pulse Resp BP Pulse Ox 10/12/20 19:32 97.9 F 100 18 157/74 H 97 Inital Vital Signs reviewed: Yes General: Well nourished, Well developed, Acute Distress Head: Normocephalic, Atraumatic Eyes: Perrl, EOMI. Negative for: Pale conjunctiva, Scleral icterus ENT: Moist mucous membranes, No rhinorrhea Neck: Supple, Nontender, No lymphadenopathy, No JVD Cardiovascular: Regular rate, Regular rhythm, No murmurs, Normal S1, Normal S2 Respiratory: No distress, CTA bilaterally, Chest nontender Abdomen: Soft, Nondistended, No masses, Tender, Guarding, Hypoactive bowel sounds, Parks's sign. Negative for: Nontender, Normal bowel sounds, Rebound tenderness, Hepatomegaly, Splenomegaly, Mass, Pulsatile mass Rectal: Deferred Back: Nontender, Normal Inspection. Negative for: CVA tenderness Extremities: Nontender, No edema Skin: Normal color Psychological: Normal affect, Normal Mood Diagnostic/Tx/Re-eval Impressions Abdomen Ultrasound 10/12/20 20:28 IMPRESSION: 1. No acute findings. 2. Hepatic steatosis. Electronically Signed: Belinda Santos MD at 22:01 EST Tel , Service support , 10/12/20 20:28 Abdomen Limited [US] Stat Laboratory Results 10/12/20 10/12/20 10/12/20 19:47 20:50 20:50 WBC 10.2 RBC 5.99 H Hgb 16.8 H Hct 54.1 H MCV 90.3 MCH 28.0 MCHC 31.1 L RDW Std Deviation 44.8 H RDW Coeff of Marcy 13.4 Plt Count 379 MPV 10.9 Immature Gran % (Auto) 0.100 Neut % (Auto) 64.3 Lymph % (Auto) 25.5 Dare % (Auto) 8.4 Eos % (Auto) 1.2 Baso % (Auto) 0.5 Absolute Neuts (auto) 6.6 Absolute Lymphs (auto) 2.59 Nucleated RBC % 0 Sodium Cancelled Potassium Cancelled Chloride Cancelled Carbon Dioxide Cancelled Anion Gap Cancelled BUN Cancelled Creatinine Cancelled Estim Creat Clear Calc Cancelled Est GFR (MDRD) Af Amer Cancelled Est GFR (MDRD) Non-Af Cancelled BUN/Creatinine Ratio Cancelled Glucose Cancelled Calcium Cancelled Total Bilirubin Cancelled Direct Bilirubin Cancelled AST Cancelled ALT Cancelled Alkaline Phosphatase Cancelled Total Protein Cancelled Albumin Cancelled Globulin Cancelled Lipase Cancelled Urine Color Yellow Urine Clarity Cloudy Urine pH 6.0 Ur Specific [place] 1.020 Urine Protein 100 H Urine Glucose (UA) 1000 H Urine Ketones 5 H Urine Occult Blood 25 H Urine Nitrite Negative Urine Bilirubin Negative Urine Urobilinogen 1 H Ur Leukocyte Esterase 100 H Urine RBC 5-10 SEEN Urine WBC 10-25 SEEN Ur Squamous Epith Cells 10-25 SEEN Ur Transition Epith Cell 0-5 SEEN Ur Renal Epithelial Cell Cancelled Calcium Oxalate Crystal Cancelled Uric Acid Crystals Cancelled Triple Phos Crystals Cancelled Other Crystals Cancelled Amorphous Sediment 1+ Urine Bacteria 3+ Hyaline Casts Cancelled Fine Granular Casts Cancelled Coarse Granular Casts Cancelled Waxy Casts Cancelled RBC Casts Cancelled WBC Casts Cancelled Urine Mucus 0 SEEN Urine Trichomonas Cancelled Urine Yeast Cancelled 10/12/20 10/12/20 21:35 23:15 WBC RBC Hgb Hct MCV MCH MCHC RDW Std Deviation RDW Coeff of Marcy Plt Count MPV Immature Gran % (Auto) Neut % (Auto) Lymph % (Auto) Dare % (Auto) Eos % (Auto) Baso % (Auto) Absolute Neuts (auto) Absolute Lymphs (auto) Nucleated RBC % Sodium Cancelled 137 Potassium Cancelled 4.0 Chloride Cancelled 100 Carbon Dioxide Cancelled 34.0 H Anion Gap Cancelled 3 L BUN Cancelled 15 Creatinine Cancelled 0.69 Estim Creat Clear Calc Cancelled 78.86 Est GFR (MDRD) Af Amer Cancelled 117 Est GFR (MDRD) Non-Af Cancelled 97 BUN/Creatinine Ratio Cancelled 21.8 H Glucose Cancelled 203 H Calcium Cancelled 9.0 Total Bilirubin Cancelled 0.50 Direct Bilirubin Cancelled 0.12 AST Cancelled 5 L ALT Cancelled 19 Alkaline Phosphatase Cancelled 116 Total Protein Cancelled 7.0 Albumin Cancelled 3.2 Globulin Cancelled 3.8 Lipase Cancelled 336 Urine Color Urine Clarity Urine pH Ur Specific [place] Urine Protein Urine Glucose (UA) Urine Ketones Urine Occult Blood Urine Nitrite Urine Bilirubin Urine Urobilinogen Ur Leukocyte Esterase Urine RBC Urine WBC Ur Squamous Epith Cells Ur Transition Epith Cell Ur Renal Epithelial Cell Calcium Oxalate Crystal Uric Acid Crystals Triple Phos Crystals Other Crystals Amorphous Sediment Urine Bacteria Hyaline Casts Fine Granular Casts Coarse Granular Casts Waxy Casts RBC Casts WBC Casts Urine Mucus Urine Trichomonas Urine Yeast UA reveals a contaminated specimen. Liver enzymes are unremarkable. Lipase is normal. CBC and differential is normal. Ultrasound reveals a fatty liver. There is no evidence of cholelithiasis. BUN to creatinine ratio is normal which would rule out acute GI bleed. - Medical Decision Making Differential diagnosis includes cholelithiasis, cholecystitis, liver disease, peptic ulcer disease atypical presentation for ureterolithiasis. Appropriate labs were obtained. Since she has history of diabetes she was medicated with morphine and Zofran for her pain and nausea. Patient was informed the cause of her pain is unknown. She was discharged to home with prescription for dicyclomine since she reports waxing and waning colicky type pain. ED Disposition - Plan for ED Patient: Disposition: Home or Assisted Living Diagnosis: Acute abdominal pain in right upper quadrant Instructions: ED Abdominal Pain Unkn Cause Fem Prescriptions: Dicyclomine HCl [Bentyl] 20 mg PO TIDAC #20 cap Transmission Status: Pending to [facility] #30 Referrals: Rita Melton MD [Primary Care Provider] - 3-5 Days if not improving
[2020-10-12] MEDS: Morphine 4 MG/ML Syringe IV ×2 (20:54→23:19)
[2020-10-12] MEDS: Ondansetron 4 MG/2 ML Vial IV (20:54)
[2020-10-12] MEDS: 0.9% Normal Saline 1,000 ML 125 ML IV (20:54)
[2020-10-12 21:01] LABS: Absolute Lymphocyte Count 2.59 X10^3/uL (0.83-4.51); Absolute Neutrophil Count 6.6 X10^3/uL (2.0-7.7); Basophil# 0.05 X10^3/uL; Basophil% 0.5 % (0-1); Eosinophil# 0.12 X10^3/uL; Eosinophils% 1.2 % (0-5); Hematocrit 54.1 % (37-47); Hemoglobin 16.8 g/dL (12.0-15.0); Lymphocyte # 2.59 X10^3/ul (4.0); Lymphocyte % 25.5 % (19-41); Mean Corp Hgb Conc 31.1 g/dL (32-36); Mean Corpuscular Volume 90.3 fL (81-99); Mean Platelet Vol. 10.9 fl (6.2-12.0); Monocyte# 0.85 X10^3/uL; Monocyte% 8.4 % (0-10); NRBC Flagged by Analyzer 0 % (0-5); Neutrophil # 6.55 X10^3/uL (2.7-7.7); Neutrophil % 64.3 % (47-70); Platelet Count 379 K/mm3 (150-450); RBC Distribution Width CV 13.4 % (11.6-14.6); RBC Distribution Width SD 44.8 fl (35.1-43.9); Red Blood Count 5.99 M/mm3 (4.2-5.4); White Blood Count 10.2 K/mm3 (4.4-11.0)
[2020-10-12 23:20] VITALS: PULSE 92; RESP 16; O2SAT 94
[2020-10-12 23:21] VITALS: BP 163/83
[2020-10-12 23:43] LABS: AST(SGOT) 5 U/L (15-37); Alanine Aminotransfer ALT/SGPT 19 U/L (13-56); Albumin, Serum 3.2 g/dL (3.2-5.0); Alkaline Phosphatase 116 U/L (45-117); Anion Gap 3 (5-15); BUN 15 mg/dL (7-18); BUN/Creat Ratio 21.8 RATIO (10-20); Bilirubin, Direct 0.12 mg/dL (0.00-0.30); Chloride 100 mmol/L (98-107); Creatinine, Serum 0.69 mg/dL (0.55-1.02); EST Glomerular Filtration Rate 97 mL/min (>60); Est Glom Filt Rate - Afr Amer 117 mL/min (>60); Estimated Creatinine Clearance 78.86 ml/min; Globulin 3.8 g/dL (2.2-4.2); Glucose 203 mg/dL (74-106); Lipase 336 U/L (73-393); Sodium Level 137 mmol/L (136-145)
[2020-10-12 23:50] LABS: Mucous, Urine 0 SEEN /hpf (<or=2+)
[2020-10-12 23:51] LABS: Amorphous Sediment 1+; Bacteria 3+ /hpf (None Seen); Red Blood Cells-Urine 5-10 SEEN /hpf (0-5); Squamous Epithelial Cells - UA 10-25 SEEN /hpf (5-10); Transitional Epithelial - Ur 0-5 SEEN /hpf (0-5); White Blood Cells 10-25 SEEN /hpf (0-5)
== END 2020-10-13 00:32 | disposition home or self-care (01) ==
PROVIDERS: Emergency Provider Emergency Medicine; PCP Internal Medicine
DX: R10.11 Right upper quadrant pain (principal); F17.200 Nicotine dependence, unspecified, uncomplicated; I10 Essential (primary) hypertension; E11.9 Type 2 diabetes mellitus without complications; E66.01 Morbid (severe) obesity due to excess calories; Z98.51 Tubal ligation status; Z68.41 Body mass index [BMI] 40.0-44.9, adult; Z79.4 Long term (current) use of insulin
CPT/HCPCS: 36415; 76705; 80048; 80076; 81002; 83690; 85025; 96361; 96374; 96375; 96376; 99284; J7030; A4216; J2405

== ENCOUNTER 2020-10-14 20:43 | Inpatient (IN) | payer MEDICAID, SELFPAY ==
[2020-10-14 20:43] VITALS: BP 135/96; PULSE 109; RESP 24; TEMP 36.1; O2SAT 96; BMI 40.2
--- NOTE | 2020-10-14 20:55 | CT_ITS ---
STUDY: CT ABDOMEN AND PELVIS WITH CONTRAST REASON FOR EXAM: Female, 49 years old. RIGHT SIDED ABD PAIN WITH NAUSEA AND EMESIS X 5 DAYS, NEGATIVE US 2 DAYS AGO, HX IUD, TUBAL LIGATION, DIAB RADIATION DOSAGE (If Supplied By Facility): CTDIvol = ( 18.13 ) mGy, DLP = ( 1130.96 ) mGycm TECHNIQUE: Transaxial images were obtained from the dome of the diaphragm to the symphysis pubis without oral contrast. IV 100mL Isovue-370 was administered. Sagittal and coronal images were reconstructed. Individualized dose optimization techniques were used for this CT. COMPARISON: Prior abdomen and pelvic CT exam of 06/09/2018 FINDINGS: Stable chronic bibasilar lung changes. The visualized portions of the heart are within normal limits. Normal liver. Normal gallbladder and extrahepatic biliary system. Normal spleen. Mild enlargement and peripancreatic edema of the pancreatic head. Stable enlargement of the left adrenal gland. Stable right renal cysts. Otherwise normal kidneys with no acute renal findings or changes. Food filled stomach. Normal small intestine. Normal colon. The appendix is visualized and appears normal. Minimal calcified plaque of the aorta. Normal inferior vena cava. Normal retroperitoneum. Normal urinary bladder. Stable uterine fibroids. IUD present in the endometrial space. Otherwise negative for pelvic mass or free fluid. Minimal bilateral groin fatty hernias. Minimal umbilical hernia. Normal osseous structures. CT/Abdomen/Pelvis W IV Cont ONLY IMPRESSION: Mild enlargement of the pancreatic head with mild peripancreatic edema consistent with acute pancreatitis. Unremarkable liver and spleen with a nondistended gallbladder. No acute renal findings or changes. Stable simple right renal cysts. No acute bowel related findings. Negative for obstruction, perforation or inflammatory bowel changes. Stable fibroid uterus. Status post tubal ligation with an IUD in the endometrial space. Otherwise negative for pelvic mass or free fluid of the pelvis. Electronically Signed: Maritza Wright MD at 21:53 EST , Service support ,
[2020-10-14 21:09] LABS: Absolute Neutrophil Count 7.1 X10^3/uL (2.0-7.7); Basophil# 0.07 X10^3/uL; Basophil% 0.6 % (0-1); Eosinophil# 0.14 X10^3/uL; Eosinophils% 1.3 % (0-5); Hematocrit 55.2 % (37-47); Hemoglobin 17.8 g/dL (12.0-15.0); Lymphocyte % 22.8 % (19-41); Mean Corp Hgb Conc 32.2 g/dL (32-36); Mean Corpuscular Hgb 29.6 pg (27.0-32.0); Mean Corpuscular Volume 91.7 fL (81-99); Mean Platelet Vol. 11.2 fl (6.2-12.0); Monocyte# 1.08 X10^3/uL; Monocyte% 9.9 % (0-10); NRBC Flagged by Analyzer 0 % (0-5); Neutrophil # 7.14 X10^3/uL (2.7-7.7); Neutrophil % 65.1 % (47-70); Platelet Count 392 K/mm3 (150-450); RBC Distribution Width CV 13.2 % (11.6-14.6); RBC Distribution Width SD 44.6 fl (35.1-43.9); Red Blood Count 6.02 M/mm3 (4.2-5.4)
[2020-10-14] MEDS: 0.9% Normal Saline 1,000 ML 1000 ML IV (21:10)
[2020-10-14] MEDS: Morphine 4 MG/ML Syringe IV ×2 (21:10→22:11)
[2020-10-14] MEDS: Ondansetron 4 MG/2 ML Vial IV (21:10)
[2020-10-14 21:19] LABS: Internal QC Validated? YES +Cl - CLEAR BKGD; Pregnancy, Serum, hCG Quali. NEGATIVE Negative
[2020-10-14 21:26] LABS: ALB/GLOB Ratio 0.8 RATIO (0.9-2.4); AST(SGOT) 7 U/L (15-37); Alanine Aminotransfer ALT/SGPT 21 U/L (13-56); Albumin, Serum 3.4 g/dL (3.2-5.0); Alkaline Phosphatase 146 U/L (45-117); Anion Gap 4 (5-15); BUN 17 mg/dL (7-18); BUN/Creat Ratio 20.5 RATIO (10-20); Calcium,Total 10.1 mg/dL (8.5-10.1); Chloride 96 mmol/L (98-107); Creatinine, Serum 0.83 mg/dL (0.55-1.02); EST Glomerular Filtration Rate 78 mL/min (>60); Est Glom Filt Rate - Afr Amer 94 mL/min (>60); Estimated Creatinine Clearance 65.56 ml/min; Globulin 4.3 g/dL (2.2-4.2); Glucose 398 mg/dL (74-106); Lipase 290 U/L (73-393); Potassium 4.2 mmol/L (3.5-5.1); Protein, Total 7.7 g/dL (6.4-8.2); Sodium Level 136 mmol/L (136-145)
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
[2020-10-14 22:02] VITALS: BP 143/86; PULSE 79; RESP 18
--- NOTE | 2020-10-14 22:09 | HP.PCM_ITS ---
Problem List (1) Acute pancreatitis Status: Acute Qualifiers: Pancreatitis type: unspecified pancreatitis type (2) HLD (hyperlipidemia) Status: Chronic Qualifiers: Hyperlipidemia type: unspecified Qualified Code(s): E78.5 - Hyperlipidemia, unspecified (3) CARSON (obstructive sleep apnea) Status: Suspected (4) Morbid obesity with BMI of 40.0-44.9, adult Status: Chronic (5) Benign essential hypertension Status: Chronic (6) Chronic back pain Status: Chronic Qualifiers: Back pain location: back pain in unspecified location Back pain laterality: unspecified Qualified Code(s): M54.9 - Dorsalgia, unspecified; G89.29 - Other chronic pain (7) COPD Status: Chronic (8) Asthma Status: Chronic Qualifiers: Asthma severity: unspecified severity Asthma persistence: unspecified Asthma complication type: unspecified Qualified Code(s): J45.909 - Unspecified asthma, uncomplicated; J45.909 - Unspecified asthma, uncomplicated; J45.909 - Unspecified asthma, uncomplicated (9) GERD (gastroesophageal reflux disease) Status: Chronic Qualifiers: Esophagitis presence: esophagitis presence not specified Qualified Code(s): K21.9 - Gastro-esophageal reflux disease without esophagitis (10) Obesity (BMI 30-39.9) Status: Chronic (11) Diabetes mellitus, type II Status: Chronic Qualifiers: Diabetes mellitus custodial insulin 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 Diabetes mellitus complication status: with other specified complication Qualified Code(s): E11.69 - Type 2 diabetes mellitus with other specified complication; 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 She denies diarrhea associated. She denies any fever or chills. She notes the pain is severe following oral intake by approximately 1 to 2 hours with resulting nausea and emesis concurrently, rated 10 out of 10, appears to wax and wane, lessened in between these times, dull aching but with any palpation significantly worsened. Work-up in the ED included T 97, heart 109, BP 135/96, respiratory rate 24, 96% on 3 L nasal cannula, CBC with WBC 11, hemoglobin 17.8, platelet 392 without shift, CMP with chloride 96, carbon oxide 36, glucose 398, total bilirubin 0.20, AST/ALT 06/13, alk phos 146, lipase 290, negative testing, CT abdomen pelvis with mild enlargement of the pancreatic head with mild peripancreatic edema consistent with acute pancreatitis, unremarkable liver and spleen with a nondistended gallbladder, stable fibroid uterus, evidence tubal ligation with IUD in the endometrial space. In the emergency room patient administered aggressive normal saline, Phenergan, Zofran, morphine 4 mg IV x2 rounds. Past Medical History Past Medical History (Chronic Problems): Chronic Problems (Last Reviewed 04/06/19 @ 10:28 by Danni Bahena DIETITIAN RESEARCH, DIETITIAN RESEARCH-C) HLD (hyperlipidemia) (Chronic) Morbid obesity with BMI of 40.0-44.9, adult (Chronic) Hypertension (Chronic) COPD exacerbation (Chronic) Tobacco abuse (Chronic) Hypersomnia (Chronic) Benign essential hypertension (Chronic) Herniated thoracic disc without myelopathy (Chronic) Chronic back pain (Chronic) COPD (Chronic) Asthma (Chronic) GERD (gastroesophageal reflux disease) (Chronic) Obesity (BMI 30-39.9) (Chronic) Diabetes mellitus, type II (Chronic) Medical History: Medical History (Last Reviewed 04/06/19 @ 10:28 by Danni Bahena DIETITIAN RESEARCH, DIETITIAN RESEARCH-C) COPD with acute exacerbation (Acute) J44.1 Hypertensive urgency (Ruled-out) I16.0 Otitis media (Ruled-out) H66.90 Benign essential hypertension (Chronic) I10 Herniated thoracic disc without myelopathy (Chronic) M51.24 Chronic back pain (Chronic) M54.9, G89.29 COPD (Chronic) Asthma (Chronic) J45.909 GERD (gastroesophageal reflux disease) (Chronic) K21.9 Obesity (BMI 30-39.9) (Chronic) E66.9 Diabetes mellitus, type II (Chronic) E11.9 Allergies aspirin Allergy (Verified 10/14/20 21:09) Anaphylaxis cyclobenzaprine HCl [From Flexeril] Allergy (Verified 10/14/20 21:09) Rash levofloxacin [From Levaquin] Allergy (Verified 10/14/20 21:09) Rash naproxen [From Naprosyn] Allergy (Verified 10/14/20 21:09) Anaphylaxis bupropion HCl [From Wellbutrin] Adverse Reaction (Verified 10/14/20 21:09) nightmares NIGHTMARES doxycycline Adverse Reaction (Verified 10/14/20 21:09) Diarrhea Home Medications: Ambulatory Orders Medication Instructions Recorded Amlodipine [Norvasc] 10 mg PO DAILY 08/13/15 Lisinopril [Zestril] 40 mg PO DAILY 02/11/16 Hydrochlorothiazide [Hctz] 25 mg PO DAILY 10/26/17 Ipratropium/Albuterol Sulfate 3 ml INHALATION 4X/DAY 03/10/18 [Duoneb] Omeprazole 1 tab PO BREAKFAST 06/09/18 Albuterol Aerosols [Ventolin 2.5 mg INHALATION Q4H PRN PRN 03/13/19 Aerosols] Albuterol Sulfate [Ventolin Hfa] 90 mcg INHALATION Q4H PRN 03/13/19 Oxygen, Home [Home Oxygen] 4 - 6 lpm NASAL PRN PRN #0 04/06/19 aclidinium bromide 400 1 inh INHALATION BID #1 ea 04/06/19 mcg/actuation breath activated powder inhaler budesonide-formoterol HFA 160 2 puff INHALATION BID #1 ea 04/06/19 mcg-4.5 mcg/actuation aerosol inhaler Insulin Glargine,Hum.rec.anlog 30 unit SQ DAILY #1 insuln.pen 11/03/19 [Basaglar Kwikglenys U-100] Dicyclomine HCl [Bentyl] 20 mg PO TIDAC #20 cap 10/12/20 Atorvastatin Calcium 10 mg PO DAILY 10/14/20 Gabapentin 1,200 mg PO BID 10/14/20 Surgical History: Surgical History (Last Reviewed 04/06/19 @ 10:28 by Danni Bahena DIETITIAN RESEARCH, DIETITIAN RESEARCH-C) History of tubal ligation (Resolved) Z98.51 History of section (Resolved) Z98.891 Surgical History: - - Bilateral tubal ligation, x2, chest tube placement at the age of 23 years old. 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 Smoking Status: Current every day smoker - Patient is currently decreased her cigarette usage down to 1 pack lasting her 1 week. Tobacco Use: Cigarettes Alcohol: None Drugs: None - *Family History Sibling Family History: Family History (Last Reviewed 04/06/19 @ 10:28 by Danni Bahena NP, DIETITIAN RESEARCH-C) Mother Breast cancer Cancer Father COPD (chronic obstructive pulmonary disease) Hypertension Heart disease Cancer History Items: Pulmonary Disease - age 34 secondary to pulmonary hypertension Maternal Family History: Family History (Last Reviewed 04/06/19 @ 10:28 by Danni Bahena NP, DIETITIAN RESEARCH-C) Mother Breast cancer Cancer Father COPD (chronic obstructive pulmonary disease) Hypertension Heart disease Cancer History Items: Cancer - alive age 63, breast and skin Paternal Family History: Family History (Last Reviewed 04/06/19 @ 10:28 by Danni Bahena NP, DIETITIAN RESEARCH-C) Mother Breast cancer Cancer Father COPD (chronic obstructive pulmonary disease) Hypertension Heart disease Cancer History Items: Cancer - Skin cancer, COPD - alive age 65, Heart Disease, Hypertension, No pertinent history Review of Systems Constitutional: Reports: Anorexia, Malaise, Weakness, Fatigue. Denies: Chills, Fever, Weight Change HEENT: Reports: Nasal Congestion. Denies: Head Aches, Sinus Congestion, Sinus Drainage Cardiovascular: Denies: Chest Pain, Chest Pressure, Chest Tightness, Orthopnea, Palpitations, Syncope Respiratory: Reports: Wheezing. Denies: Cough, Shortness of Breath, Shortness of breath at rest, Sputum production Gastrointestinal: Reports: Abdominal Pain, Diarrhea, Dyspepsia, Nausea, Vomiting Genitourinary: Denies: Dysuria Musculoskeletal: Reports: Back Pain, Joint Pain. Denies: Joint Tenderness Skin: Denies: Rash, Wounds Neurological: Denies: Numbness, Tingling, Focal weakness Psychiatric: Reports: Anxiety, Depression. Denies: Homicidal Ideations, Suicidal Ideations Hematologic/ Lymphatic: Denies: Easy Bruising, Easy Bleeding VTE Information - Inpt Only VTE Present on Admission: No VTE Mechan Device Prophylaxis: SCD's VTE Pharm Prophylaxis ordered?: Yes Patient Problems: Active and Suspected Problems (Last Reviewed 04/06/19 @ 10:28 by Danni Bahena DIETITIAN RESEARCH, DIETITIAN RESEARCH-C) Acute pancreatitis (Acute) CARSON (obstructive sleep apnea) (Suspected) Subjective: Patient laying in the ED bed, fatigued appearance, no acute distress but does grimace with movement. Objective: Physical Examination: General: awake, alert, oriented x 3 and cooperative, laying in the ED bed, fatigued, uncomfortable appearing especially with movement, hoarse voice. Skin: normal color, turgor, no icterus, cyanosis. HEENT: AT/NC, EOMI, PERRLA, dry MM, no carotid bruits or JVD noted. Lungs: Significantly diminished, greater bases, soft end expiratory wheezing which she notes is chronic, no obvious rales or rhonchi. Heart: Mildly tachycardic with regular rhythm; no gallop, rub audible. Abdomen: soft, morbidly obese, significant right upper quadrant pain with rebound and guarding, some discomfort epigastric region but primarily right upper quadrant, difficult to assess distention secondary to habitus and pain, hypoactive bowel sounds, difficult to assess HSM secondary to pain elicited with evaluation. Extremities: no cyanosis, clubbing, or edema. Neurological: patient awake, alert, oriented as noted; cognitive function appears baseline intact; pupils equally reactive to light and accomodation; cranial nerves II-XII grossly normal, moving all 4 extremities, no focal deficits, strength moderately to severely globally decreased secondary to acute presentation. Psychiatric: affect appears fatigued, uncomfortable following evaluation, no acute evidence of depressive or anxiety feelings. - Physical Exam Vitals/I&O's: Vital Signs Temp Pulse Resp BP Pulse Ox 97 F L 79 18 143/86 H 96 10/14/20 20:43 10/14/20 22:02 10/14/20 22:02 10/14/20 22:02 10/14/20 20:43 Oxygen Flow Rate (L/min) 3 Oxygen Delivery Method Nasal Cannula Weight: 220 lb Body Mass Index (BMI) 40.2 Laboratory Results 10/14/20 21:00: WBC 11.0, RBC 6.02 H, Hgb 17.8 H, Hct 55.2 H, MCV 91.7, MCH 29.6, MCHC 32.2, RDW Std Deviation 44.6 H, RDW Coeff of Marcy 13.2, Plt Count 392, MPV 11.2, Immature Gran % (Auto) 0.300, Neut % (Auto) 65.1, Lymph % (Auto) 22.8, Doddridge % (Auto) 9.9, Eos % (Auto) 1.3, Baso % (Auto) 0.6, Absolute Neuts (auto) 7.1, Absolute Lymphs (auto) 2.50, Nucleated RBC % 0 10/14/20 21:00: Sodium 136, Potassium 4.2, Chloride 96 L, Carbon Dioxide 36.0 H, Anion Gap 4 L, BUN 17, Creatinine 0.83, Estim Creat Clear Calc 65.56, Est GFR (MDRD) Af Amer 94, Est GFR (MDRD) Non-Af 78, BUN/Creatinine Ratio 20.5 H, Glucose 398 H, Calcium 10.1, Total Bilirubin 0.20, AST 7 L, ALT 21, Alkaline Phosphatase 146 H, Total Protein 7.7, Albumin 3.4, Globulin 4.3 H, Albumin/Globulin Ratio 0.8 L, Lipase 290 10/14/20 21:00: Serum , Qual NEGATIVE Current Medications Sodium Chloride () 1,000 mls @ 999 mls/hr IV .Q1H1M ONE Stop: 10/14/20 22:32 Assessment/Plan All Active Problems (Last Reviewed 04/06/19 @ 10:28 by Danni Bahena DIETITIAN RESEARCH, DIETITIAN RESEARCH- C) Acute on chronic respiratory failure with hypoxia and hypercapnia (Acute) COPD exacerbation (Acute) Pneumonia (Acute) Acute pancreatitis (Acute) Acute respiratory failure with hypoxia (Acute) Elevated troponin (Acute) Acute respiratory failure with hypoxia and hypercapnia (Acute) History of tubal ligation (Resolved) History of section (Resolved) COPD with acute exacerbation (Acute) Hypertensive urgency (Ruled-out) Otitis media (Ruled-out) Tobacco abuse (Resolved) The patient is a 49 y/o F w/ PMHx: Asthma/COPD with chronic hypoxic respiratory failure, Diabetes mellitus type II, Morbid Obesity, GERD, HTN, Chronic back pain presented 2-3 days prior with abdominal pain/RUQ pain with unremarkable gallbladder US at that time with concurrent nausea and emesis (10/12/20) discharged to home on bentyl who now re-presents to the [facility] ED on 10/14/20 with ongoing pain, RUQ and epigastric region with intractable nausea and emesis. 1. Acute pancreatitis by imaging study w/ abdominal pain, N/V with still suspicion for gallbladder as etiology: Will admit to medical surgical floor, maintain on IVFs, NPO, PPI, IV/po pain control, trend lipase, CMP. Recent unremarkable GB US upon recent ED evaluation however patient with significant ongoing right upper quadrant pain with voluntary guarding and rebound tenderness noted. Will obtain FLP. Denies EtOH consumption risk as etiology for pancreatitis. Given severity of examination and ongoing issues, history of worsened pain following intake will request surgery involvement. In case intervention at some point necessary will obtain rapid Covid testing. 2. Chronic COPD with chronic hypoxic respiratory failure: Will maintain on oxygen with wean as tolerated to home oxygen supplementation, continue ATC duonebs, PRN albuterol, HOB, IS parameters. 3. Diabetes mellitus type II: Hold oral home regimen, continue home insulin regimen and given n.p.o. status may consider one half dose if appropriate, n.p.o. status given acute presentation as noted #1, while n.p.o. every 6 hour accu checks w/ ISS. 4. Morbid Obesity: Weight loss and lifestyle changes encouraged, may consider nutrition consultation for education and teaching. 5. Hypertension: Continue home regimen including Norvasc, lisinopril, temporarily holding hydrochlorothiazide given presentation with hydration, resume once appropriate, PRN hydralazine. 6. Hyperlipidemia: Continue home statin regimen. FLP in AM. 7. GERD: We will maintain on PPI. 8. DVT prophylaxis: SCDs, Lovenox. Inpatient E&M: [id number] Init Hosp L3
[2020-10-14] MEDS: proMETHazine 25 MG/ML Syringe 12.5 MG IV (22:11)
[2020-10-14 22:27] VITALS: BP 143/86; PULSE 79; RESP 18; TEMP 37; O2SAT 96
[2020-10-14] MEDS: 0.9% Normal Saline 1,000 ML 999 ML IV (23:02)
[2020-10-14 23:03] VITALS: BMI 40.4
[2020-10-14 23:15] VITALS: BP 145/80; PULSE 90; RESP 16; TEMP 36.8; O2SAT 97
[2020-10-14] MEDS: 0.9% Normal Saline 1,000 ML 150 ML IV (23:58)
[2020-10-15] VITALS (9 sets, daily range): BP systolic 103–111; BP diastolic 51–69; PULSE 77–95; RESP 9–24; TEMP 36.3–36.6; O2SAT 90–96
[2020-10-15] MEDS: HYDROmorphone 0.5 MG/0.5 ML SYRINGE IV ×3 (00:07→18:48)
[2020-10-15] MEDS: Ondansetron 4 MG/2 ML Vial IV (00:07)
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
[2020-10-15] MEDS: Insulin Lispro 100 UNIT/ML INSULN.PEN SC ×4 (00:26→16:42)
[2020-10-15] MEDS: Ipratropium/Albuterol Sulfate 3 ML AMPUL.NEB INHALATION ×4 (00:35→19:46)
[2020-10-15 00:41] LABS: Bedside Glucose 301 mg/dL (70-110)
[2020-10-15 06:40] LABS: Bedside Glucose 209 mg/dL (70-110)
[2020-10-15] MEDS: 0.9% Normal Saline 1,000 ML 150 ML IV (06:57)
[2020-10-15] MEDS: oxyCODONE 5 MG Tablet 10 MG PO ×3 (07:00→20:38)
[2020-10-15 07:37] LABS: Absolute Lymphocyte Count 2.41 X10^3/uL (0.83-4.51); Absolute Neutrophil Count 4.4 X10^3/uL (2.0-7.7); Basophil# 0.05 X10^3/uL; Basophil% 0.6 % (0-1); Eosinophil# 0.18 X10^3/uL; Eosinophils% 2.3 % (0-5); Hematocrit 49.2 % (37-47); Hemoglobin 14.9 g/dL (12.0-15.0); Lymphocyte # 2.41 X10^3/ul (4.0); Lymphocyte % 30.9 % (19-41); Mean Corp Hgb Conc 30.3 g/dL (32-36); Mean Corpuscular Hgb 28.3 pg (27.0-32.0); Mean Corpuscular Volume 93.4 fL (81-99); Monocyte# 0.77 X10^3/uL; Monocyte% 9.9 % (0-10); NRBC Flagged by Analyzer 0 % (0-5); Neutrophil # 4.38 X10^3/uL (2.7-7.7); Neutrophil % 56.2 % (47-70); Platelet Count 338 K/mm3 (150-450); RBC Distribution Width CV 13.3 % (11.6-14.6); Red Blood Count 5.27 M/mm3 (4.2-5.4); White Blood Count 7.8 K/mm3 (4.4-11.0)
[2020-10-15 08:41] LABS: ALB/GLOB Ratio 0.8 RATIO (0.9-2.4); AST(SGOT) 6 U/L (15-37); Alanine Aminotransfer ALT/SGPT 15 U/L (13-56); Albumin, Serum 2.7 g/dL (3.2-5.0); Alkaline Phosphatase 103 U/L (45-117); Amylase 16 U/L (25-115); Anion Gap 4 (5-15); BUN 15 mg/dL (7-18); BUN/Creat Ratio 26.5 RATIO (10-20); Calcium,Total 9.1 mg/dL (8.5-10.1); Chloride 102 mmol/L (98-107); Cholesterol 140 mg/dL (200); Creatinine, Serum 0.56 mg/dL (0.55-1.02); EST Glomerular Filtration Rate 121 mL/min (>60); Est Glom Filt Rate - Afr Amer 147 mL/min (>60); Estimated Creatinine Clearance 97.17 ml/min; Globulin 3.4 g/dL (2.2-4.2); Glucose 194 mg/dL (74-106); High Density Lipoprotein 31 mg/dL; Lipase 174 U/L (73-393); Potassium 4.1 mmol/L (3.5-5.1); Protein, Total 6.1 g/dL (6.4-8.2); Sodium Level 140 mmol/L (136-145); Triglycerides 125 mg/dL; Very Low Density Lipoprotein 25 mg/dL (5-40)
[2020-10-15] MEDS: Enoxaparin 40 MG/0.4 ML Syringe SC (08:52)
[2020-10-15] MEDS: Lisinopril 40 MG Tablet PO (09:00)
[2020-10-15] MEDS: Gabapentin 600 MG Tablet 1200 MG PO ×2 (09:00→22:06)
[2020-10-15] MEDS: amLODIPine 10 MG Tablet PO (09:00)
[2020-10-15] MEDS: Budesonide Respules 0.5 MG/2 ML AMPUL.NEB. INHALATION (11:04)
--- NOTE | 2020-10-15 11:11 | CON.PCM_ITS ---
Problem List (1) Epigastric pain Status: Acute (2) Acute pancreatitis Status: Acute Qualifiers: Pancreatitis type: unspecified pancreatitis type (3) GERD (gastroesophageal reflux disease) Status: Chronic Qualifiers: Esophagitis presence: esophagitis presence not specified Qualified Code(s): K21.9 - Gastro-esophageal reflux disease without esophagitis Reason for Consult Date of Consultation: 10/15/20 History of Present Illness: The patient is a 49 y/o F w/ PMHx: Asthma/COPD with chronic hypoxic respiratory failure, Diabetes mellitus type II, Morbid Obesity, GERD, HTN, Chronic back pain presented 2-3 days prior with abdominal pain/RUQ pain with unremarkable gallbladder US at that time with concurrent nausea and emesis (10/12/20) discharged to home on bentyl who now re-presents to the [facility] ED on 10/14/20 with ongoing pain, RUQ and epigastric region with intractable nausea and emesis. She denies diarrhea associated. She denies any fever or chills. She notes the pain is severe following oral intake by approximately 1 to 2 hours with resulting nausea and emesis concurrently, rated 10 out of 10, appears to wax and wane, lessened in between these times, dull aching but with any palpation significantly worsened. Work-up in the ED included T 97, heart 109, BP 135/96, respiratory rate 24, 96% on 3 L nasal cannula, CBC with WBC 11, hemoglobin 17.8, platelet 392 without shift, CMP with chloride 96, carbon oxide 36, glucose 398, total bilirubin 0.20, AST/ALT 7/21, alk phos 146, lipase 290, negative testing, CT abdomen pelvis with mild enlargement of the pancreatic head with mild peripancreatic edema consistent with acute pancreatitis, unremarkable liver and spleen with a nondistended gallbladder, stable fibroid uterus, evidence tubal ligation with IUD in the endometrial space. In the emergency room patient administered aggressive normal saline, Phenergan, Zofran, morphine 4 mg IV x2 rounds. Patient has been evaluated in the past with a HIDA scan with ejection fraction she however does not know the results of this. She had a abdominal ultrasound done this past Friday which did not reveal any pericholecystic fluid no gallstones no sludge in her common bile duct was 4 mm in size. Past Medical History Past Medical History (Chronic Problems): Chronic Problems (Last Reviewed 04/06/19 @ 10:28 by Danni Bahena MOTOR VEHICLE TECHNICIAN, MOTOR VEHICLE TECHNICIAN-C) HLD (hyperlipidemia) (Chronic) Morbid obesity with BMI of 40.0-44.9, adult (Chronic) Hypertension (Chronic) COPD exacerbation (Chronic) Tobacco abuse (Chronic) Hypersomnia (Chronic) Benign essential hypertension (Chronic) Herniated thoracic disc without myelopathy (Chronic) Chronic back pain (Chronic) COPD (Chronic) Asthma (Chronic) GERD (gastroesophageal reflux disease) (Chronic) Obesity (BMI 30-39.9) (Chronic) Diabetes mellitus, type II (Chronic) Medical History: Medical History (Last Reviewed 10/15/20 @ 11:[address] Darrius Omer MD) COPD with acute exacerbation (Acute) J44.1 Hypertensive urgency (Ruled-out) I16.0 Otitis media (Ruled-out) H66.90 Benign essential hypertension (Chronic) I10 Herniated thoracic disc without myelopathy (Chronic) M51.24 Chronic back pain (Chronic) M54.9, G89.29 COPD (Chronic) Asthma (Chronic) J45.909 GERD (gastroesophageal reflux disease) (Chronic) K21.9 Obesity (BMI 30-39.9) (Chronic) E66.9 Diabetes mellitus, type II (Chronic) E11.9 Allergies aspirin Allergy (Verified 10/14/20 21:09) Anaphylaxis cyclobenzaprine HCl [From Flexeril] Allergy (Verified 10/14/20 21:09) Rash levofloxacin [From Levaquin] Allergy (Verified 10/14/20 21:09) Rash naproxen [From Naprosyn] Allergy (Verified 10/14/20 21:09) Anaphylaxis bupropion HCl [From Wellbutrin] Adverse Reaction (Verified 10/14/20 21:09) nightmares NIGHTMARES doxycycline Adverse Reaction (Verified 10/14/20 21:09) Diarrhea Home Medications: Ambulatory Orders Medication Instructions Recorded Amlodipine [Norvasc] 10 mg PO DAILY 08/13/15 Lisinopril [Zestril] 40 mg PO DAILY 02/11/16 Hydrochlorothiazide [Hctz] 25 mg PO DAILY 10/26/17 Ipratropium/Albuterol Sulfate 3 ml INHALATION 4X/DAY 03/10/18 [Duoneb] Omeprazole 1 tab PO BREAKFAST 06/09/18 Albuterol Aerosols [Ventolin 2.5 mg INHALATION Q4H PRN PRN 03/13/19 Aerosols] Albuterol Sulfate [Ventolin Hfa] 90 mcg INHALATION Q4H PRN 03/13/19 Oxygen, Home [Home Oxygen] 4 - 6 lpm NASAL PRN PRN #0 04/06/19 budesonide-formoterol HFA 160 2 puff INHALATION BID #1 ea 04/06/19 mcg-4.5 mcg/actuation aerosol inhaler Insulin Glargine,Hum.rec.anlog 30 unit SQ DAILY #1 insuln.pen 11/03/19 [Basaglar Kwikpen U-100] Dicyclomine HCl [Bentyl] 20 mg PO TIDAC #20 cap 10/12/20 Atorvastatin Calcium 10 mg PO DAILY 10/14/20 Gabapentin 1,200 mg PO BID 10/14/20 Surgical History: Surgical History (Last Reviewed 10/15/20 @ 11:[address] Darrius Omer MD) History of tubal ligation (Resolved) Z98.51 History of section (Resolved) Z98.891 Surgical History: - - Bilateral tubal ligation, x2, chest tube placement at the age of 23 years old. Psychiatric History: Anxiety, Depression GRINDER NEEDLE TIP History: No pertinent GRINDER NEEDLE TIP history Lives: Spouse/ Significant Other - Lives with her boyfriend. Smoking Status: Current every day smoker Tobacco Use: Cigarettes Alcohol: None Drugs: None - *Family History Sibling Family History: Family History (Last Reviewed 04/06/19 @ 10:28 by Danni Bahena NP, MOTOR VEHICLE TECHNICIAN-C) Mother Breast cancer Cancer Father COPD (chronic obstructive pulmonary disease) Hypertension Heart disease Cancer History Items: Pulmonary Disease - age 34 secondary to pulmonary hypertension Maternal Family History: Family History (Last Reviewed 04/06/19 @ 10:28 by Danni Bahena NP, MOTOR VEHICLE TECHNICIAN-C) Mother Breast cancer Cancer Father COPD (chronic obstructive pulmonary disease) Hypertension Heart disease Cancer History Items: Cancer - alive age 63, breast and skin Paternal Family History: Family History (Last Reviewed 04/06/19 @ 10:28 by Danni Bahena NP, MOTOR VEHICLE TECHNICIAN-C) Mother Breast cancer Cancer Father COPD (chronic obstructive pulmonary disease) Hypertension Heart disease Cancer History Items: Cancer - Skin cancer, COPD - alive age 65, Heart Disease, Hypertension, No pertinent history Review of Systems Constitutional: Denies: Chills, Fever, Weight Change Cardiovascular: Denies: Chest Pain, Chest Pressure, Chest Tightness, Palpitations Respiratory: Denies: Cough, Hemoptysis, Shortness of breath at rest, Shortness of breath upon exertion, Wheezing Gastrointestinal: Reports: Abdominal Pain Patient Problems: Active and Suspected Problems (Last Reviewed 04/06/19 @ 10:28 by Danni Bahena MOTOR VEHICLE TECHNICIAN, MOTOR VEHICLE TECHNICIAN-C) Acute pancreatitis (Acute) Epigastric pain (Acute) CARSON (obstructive sleep apnea) (Suspected) - Physical Exam Vitals/I&O's: Vital Signs Temp Pulse Resp BP Pulse Ox 97.7 F L 80 9 L 111/63 91 10/15/20 08:47 10/15/20 11:00 10/15/20 11:00 10/15/20 08:47 10/15/20 11:00 Oxygen Flow Rate (L/min) 2 Oxygen Delivery Method Nasal Cannula Weight: 220 lb 14.451 oz Body Mass Index (BMI) 40.4 Intake and Output for Last 24 Hours 10/13/20 10/14/20 10/15/20 23:59 23:59 23:59 Intake Total 1000 / 1000 2220 / 2220 Balance 1000 / 1000 2220 / 2220 General: Alert, Oriented x3 Lungs: Clear to auscultation Cardiovascular: Regular rate, Regular Rhythm, No murmurs Abdomen: Tender - Patient is tender in the right upper quadrant area. She has some voluntary guarding. She is sitting up and moving in her bed without difficulty. Microbiology Past 72 Hours 10/14/20 13:00 Mucosa - Nose SARS-CoV-2 Antigen (Rapid) - Final Laboratory Results 10/14/20 21:00: WBC 11.0, RBC 6.02 H, Hgb 17.8 H, Hct 55.2 H, MCV 91.7, MCH 29.6, MCHC 32.2, RDW Std Deviation 44.6 H, RDW Coeff of Marcy 13.2, Plt Count 392, MPV 11.2, Immature Gran % (Auto) 0.300, Neut % (Auto) 65.1, Lymph % (Auto) 22.8, [place] % (Auto) 9.9, Eos % (Auto) 1.3, Baso % (Auto) 0.6, Absolute Neuts (auto) 7.1, Absolute Lymphs (auto) 2.50, Nucleated RBC % 0 10/14/20 21:00: Sodium 136, Potassium 4.2, Chloride 96 L, Carbon Dioxide 36.0 H, Anion Gap 4 L, BUN 17, Creatinine 0.83, Estim Creat Clear Calc 65.56, Est GFR (MDRD) Af Amer 94, Est GFR (MDRD) Non-Af 78, BUN/Creatinine Ratio 20.5 H, Glucose 398 H, Calcium 10.1, Total Bilirubin 0.20, AST 7 L, ALT 21, Alkaline Phosphatase 146 H, Total Protein 7.7, Albumin 3.4, Globulin 4.3 H, Albumin/Globulin Ratio 0.8 L, Lipase 290 10/14/20 21:00: Serum , Qual NEGATIVE 10/15/20 00:23: POC Glucose 301 H 10/15/20 05:48: POC Glucose 209 H 10/15/20 06:20: Sodium 140, Potassium 4.1, Chloride 102, Carbon Dioxide 34.0 H, Anion Gap 4 L, BUN 15, Creatinine 0.56, Estim Creat Clear Calc 97.17, Est GFR (MDRD) Af Amer 147, Est GFR (MDRD) Non-Af 121, BUN/Creatinine Ratio 26.5 H, Glucose 194 H, Calcium 9.1, Total Bilirubin 0.30, AST 6 L, ALT 15, Alkaline Phosphatase 103, Total Protein 6.1 L, Albumin 2.7 L, Globulin 3.4, Albumin/Globulin Ratio 0.8 L, Triglycerides 125, Cholesterol 140, LDL Cholesterol 84, VLDL Cholesterol 25, HDL Cholesterol 31 L, Amylase 16 L, Lipase 174 10/15/20 06:20: WBC 7.8, RBC 5.27, Hgb 14.9, Hct 49.2 H, MCV 93.4, MCH 28.3, MCHC 30.3 L D, RDW Std Deviation 46.0 H, RDW Coeff of Marcy 13.3, Plt Count 338, MPV 11.0, Immature Gran % (Auto) 0.100, Neut % (Auto) 56.2, Lymph % (Auto) 30.9, [place] % (Auto) 9.9, Eos % (Auto) 2.3, Baso % (Auto) 0.6, Absolute Neuts (auto) 4.4, Absolute Lymphs (auto) 2.41, Nucleated RBC % 0 10/15/20 06:20: Hepatitis A IgM Ab Pending, Hepatitis A Ab Total Pending, Hep Bs Antigen Pending, Hep B Core Total Ab Pending, Hep B Core IgM Ab Pending Current Medications Acetaminophen (Acetaminophen 325 Mg Tablet) 650 mg PO Q6H PRN PRN PRN Reason: Pain Score 1-10/Temp > 100.7 F Al Hydroxide/Mg Hydroxide (Mag Hydrox/Al Hydrox/Simeth 30 Ml Udc) 30 ml PO Q6H PRN PRN PRN Reason: Gastric Burning Albuterol Sulfate (Albuterol 2.5 Mg/3 Ml Vial.Neb.) 2.5 mg INHALATION Q2H PRN PRN PRN Reason: Dyspnea, wheezing Albuterol/Ipratropium (Ipratropium/Albuterol Sulfate 3 Ml Ampul.Neb) 3 ml INHALATION Q6HWA.RT [facility] Last Admin: 10/15/20 11:04 Dose: 3 ml Documented by: Amlodipine Besylate (Amlodipine 10 Mg Tablet) 10 mg PO DAILY [facility] Last Admin: 10/15/20 09:00 Dose: 10 mg Documented by: Atorvastatin Calcium (Atorvastatin Calcium 10 Mg Tablet) 10 mg PO QHS [place] Budesonide (Budesonide Respules 0.5 Mg/2 Ml Ampul.Neb.) 0.5 mg INHALATION Q12H.RT [facility] Last Admin: 10/15/20 11:04 Dose: 0.5 mg Documented by: Enoxaparin Sodium (Enoxaparin 40 Mg/0.4 Ml Syringe) 40 mg SC DAILY [facility] Last Admin: 10/15/20 08:52 Dose: 40 mg Documented by: Gabapentin (Gabapentin 600 Mg Tablet) 1,200 mg PO BID [facility] Last Admin: 10/15/20 09:00 Dose: 1,200 mg Documented by: Guaifenesin (Guaifenesin 10 Ml Udc (200mg/10ml)) 20 ml PO Q4H PRN PRN PRN Reason: COUGH Hydralazine HCl (Hydralazine 20 Mg/Ml Vial) 10 mg IV Q4H PRN PRN PRN Reason: SBP > 160 Hydromorphone HCl (Hydromorphone 0.5 Mg/0.5 Ml Syringe) 0.5 mg IV Q4H PRN PRN PRN Reason: Pain Score 6-10 Last Admin: 10/15/20 00:07 Dose: 0.5 mg Documented by: Sodium Chloride () 1,000 mls @ 75 mls/hr IV .[id number] [facility] Last Admin: 10/15/20 06:57 Dose: 150 mls/hr Documented by: Pantoprazole Sodium 40 mg/ (Sodium Chloride) 110 mls @ 330 mls/hr IV Q12 [facility] Last Infusion: 10/15/20 09:50 Dose: Infused Documented by: Insulin Glargine (Insulin Glargine 100 Units/Ml Pen) 30 units SC DAILY [facility] Insulin Human Lispro (Insulin Lispro 100 Unit/Ml Insuln.Pen) 0 unit SC Q6 [facility]; Protocol Last Admin: 10/15/20 05:49 Dose: 4 u Documented by: Lisinopril (Lisinopril 40 Mg Tablet) 40 mg PO DAILY [facility] Last Admin: 10/15/20 09:00 Dose: 40 mg Documented by: Magnesium Hydroxide (Magnesium Hydroxide 30 Ml Udc) 30 ml PO DAILY PRN PRN PRN Reason: Constipation Nicotine (Nicotine 7 Mg Patch) 7 mg TRANSDERM. DAILY [facility] Last Admin: 10/15/20 08:52 Dose: 7 mg Documented by: Ondansetron HCl (Ondansetron 4 Mg/2 Ml Vial) 4 mg IV Q8H PRN PRN PRN Reason: NAUSEA/VOMITING Last Admin: 10/15/20 00:07 Dose: 4 mg Documented by: Oxycodone HCl (Oxycodone 5 Mg Tablet) 10 mg PO Q4H PRN PRN PRN Reason: Pain Score 6-10 Last Admin: 10/15/20 07:00 Dose: 10 mg Documented by: Oxycodone HCl (Oxycodone 5 Mg Tablet) 5 mg PO Q4H PRN PRN PRN Reason: Pain Score 4-5 Prochlorperazine Edisylate (Prochlorperazine 10 Mg/2 Ml Vial) 5 mg IV Q4H PRN PRN PRN Reason: Breakthrough nausea/vomiting Psyllium Hydrophilic Mucilloid (Psyllium 1 Packet) 1 packet PO DAILY PRN PRN PRN Reason: Constipation Senna/Docusate Sodium (Senna/Docusate Sodium 1 Tablet) 2 tablet PO BID PRN PRN PRN Reason: Constipation Sodium Chloride (0.9% Saline Lock 10 Ml Syringe) 10 - 40 ml IV UD PRN PRN Reason: SALINE FLUSH Temazepam (Temazepam 15 Mg Capsule) 15 mg PO QHS PRN PRN PRN Reason: INSOMNIA Throat Lozenges (Benzocaine/Menthol 1 Lozenge) 1 lozenge MUCOUS MEM Q2H PRN PRN PRN Reason: SORE THROAT Assessment/Plan All Active Problems (Last Reviewed 04/06/19 @ 10:28 by Danni Bahena MOTOR VEHICLE TECHNICIAN, MOTOR VEHICLE TECHNICIAN- C) Acute on chronic respiratory failure with hypoxia and hypercapnia (Acute) COPD exacerbation (Acute) Pneumonia (Acute) Acute pancreatitis (Acute) Epigastric pain (Acute) Acute respiratory failure with hypoxia (Acute) Elevated troponin (Acute) Acute respiratory failure with hypoxia and hypercapnia (Acute) History of tubal ligation (Resolved) History of section (Resolved) COPD with acute exacerbation (Acute) Hypertensive urgency (Ruled-out) Otitis media (Ruled-out) Tobacco abuse (Resolved) At this point I think the best thing for us to do is perform an upper endoscopy on her on Friday. If this does not reveal any pathology then more than likely an MRCP will probably need to be ordered. I reviewed an EGD with the patient risks include bleeding possible injury to esophagus or stomach all questions asked were answered and she is willing to proceed. Office Visits / Consults: [id number] IP Consult L4
[2020-10-15 11:45] LABS: Bedside Glucose 183 mg/dL (70-110)
--- NOTE | 2020-10-15 12:18 | PN_ITS ---
Patient Problems: Active and Suspected Problems (Last Reviewed 10/15/20 @ 11:[address] Darrius Omer MD) Acute pancreatitis (Acute) Epigastric pain (Acute) CARSON (obstructive sleep apnea) (Suspected) Reason for Visit: Follow-up for right upper quadrant abdominal pain. Objective: Patient has right upper quadrant/epigastric abdominal pain. No pain slightly better. Patient also had nausea and vomiting before coming here. It was clear gastric content. Denies fever or chills.. Patient denies chronic alcohol use. No prior history of gallbladder stone, CBD stone or pancreatic disease. Denies prior history of pancreatitis. No family history of hepatobiliary pancreatic disease or gallbladder stone. History of smoking and emphysema on 2 L of oxygen all the time. Patient still smokes since teenage. Currently she states 1 pack last for 1 week. Follows in our pulmonary clinic with Dr. Dupont/Dr. Myers Physical exam General: Alert, Oriented x3, Cooperative HEENT: Atraumatic, PERRLA, EOMI, Normocephalic Oral: No Gingival or Mucosal Lesions/ Ulcerations Neck: Supple, No JVD, Negative Carotid Bruits Lungs: Air entry diminished in bilateral lung bases. Bilateral coarse wheezing and rhonchi present. Mild short of breath. No crepitation/rhonchi Cardiovascular: Regular rate, Regular Rhythm, Normal S1, Normal S2, No murmurs Abdomen: Bowel Sounds Present, Soft, Non Tender, Non-Distended : No renal angle tenderness. No suprapubic tenderness. Extremities: No edema, Capillary Refill Less than 3 Seconds Skin: No rashes, No breakdown Musculoskeletal: No Tenderness to Palpation of Joints or Extremities Neurological: Cranial nerves II-XII grossly intact, Deep Tendon Reflexes 2+/4 and Symmetrical, Neuro grossly intact Psych/Mental Status: Normal Affect, Appropriate. Vitals/I&O's: Vital Signs Temp Pulse Resp BP Pulse Ox 97.7 F L 80 9 L 111/63 91 10/15/20 08:47 10/15/20 11:00 10/15/20 11:00 10/15/20 08:47 10/15/20 11:00 Oxygen Flow Rate (L/min) 2 Oxygen Delivery Method Nasal Cannula Weight: 220 lb 14.451 oz Body Mass Index (BMI) 40.4 Intake and Output for Last 24 Hours 10/13/20 10/14/20 10/15/20 23:59 23:59 23:59 Intake Total 1000 / 1000 3090 / 3090 Balance 1000 / 1000 3090 / 3090 Microbiology Past 72 Hours 10/14/20 13:00 Mucosa - Nose SARS-CoV-2 Antigen (Rapid) - Final Laboratory Results 10/14/20 21:00: WBC 11.0, RBC 6.02 H, Hgb 17.8 H, Hct 55.2 H, MCV 91.7, MCH 29.6, MCHC 32.2, RDW Std Deviation 44.6 H, RDW Coeff of Marcy 13.2, Plt Count 392, MPV 11.2, Immature Gran % (Auto) 0.300, Neut % (Auto) 65.1, Lymph % (Auto) 22.8, [place] % (Auto) 9.9, Eos % (Auto) 1.3, Baso % (Auto) 0.6, Absolute Neuts (auto) 7.1, Absolute Lymphs (auto) 2.50, Nucleated RBC % 0 10/14/20 21:00: Sodium 136, Potassium 4.2, Chloride 96 L, Carbon Dioxide 36.0 H, Anion Gap 4 L, BUN 17, Creatinine 0.83, Estim Creat Clear Calc 65.56, Est GFR (MDRD) Af Amer 94, Est GFR (MDRD) Non-Af 78, BUN/Creatinine Ratio 20.5 H, Glucose 398 H, Calcium 10.1, Total Bilirubin 0.20, AST 7 L, ALT 21, Alkaline Phosphatase 146 H, Total Protein 7.7, Albumin 3.4, Globulin 4.3 H, Albumin/Globulin Ratio 0.8 L, Lipase 290 10/14/20 21:00: Serum , Qual NEGATIVE 10/15/20 00:23: POC Glucose 301 H 10/15/20 05:48: POC Glucose 209 H 10/15/20 06:20: Sodium 140, Potassium 4.1, Chloride 102, Carbon Dioxide 34.0 H, Anion Gap 4 L, BUN 15, Creatinine 0.56, Estim Creat Clear Calc 97.17, Est GFR (MDRD) Af Amer 147, Est GFR (MDRD) Non-Af 121, BUN/Creatinine Ratio 26.5 H, Glucose 194 H, Calcium 9.1, Total Bilirubin 0.30, AST 6 L, ALT 15, Alkaline Phosphatase 103, Total Protein 6.1 L, Albumin 2.7 L, Globulin 3.4, Albumin/Globulin Ratio 0.8 L, Triglycerides 125, Cholesterol 140, LDL Cholesterol 84, VLDL Cholesterol 25, HDL Cholesterol 31 L, Amylase 16 L, Lipase 174 10/15/20 06:20: WBC 7.8, RBC 5.27, Hgb 14.9, Hct 49.2 H, MCV 93.4, MCH 28.3, MCHC 30.3 L D, RDW Std Deviation 46.0 H, RDW Coeff of Marcy 13.3, Plt Count 338, MPV 11.0, Immature Gran % (Auto) 0.100, Neut % (Auto) 56.2, Lymph % (Auto) 30.9, [place] % (Auto) 9.9, Eos % (Auto) 2.3, Baso % (Auto) 0.6, Absolute Neuts (auto) 4.4, Absolute Lymphs (auto) 2.41, Nucleated RBC % 0 10/15/20 06:20: Hepatitis A IgM Ab Pending, Hepatitis A Ab Total Pending, Hep Bs Antigen Pending, Hep B Core Total Ab Pending, Hep B Core IgM Ab Pending 10/15/20 11:36: POC Glucose 183 H Current Medications Acetaminophen (Acetaminophen 325 Mg Tablet) 650 mg PO Q6H PRN PRN PRN Reason: Pain Score 1-10/Temp > 100.7 F Al Hydroxide/Mg Hydroxide (Mag Hydrox/Al Hydrox/Simeth 30 Ml Udc) 30 ml PO Q6H PRN PRN PRN Reason: Gastric Burning Albuterol Sulfate (Albuterol 2.5 Mg/3 Ml Vial.Neb.) 2.5 mg INHALATION Q2H PRN PRN PRN Reason: Dyspnea, wheezing Albuterol/Ipratropium (Ipratropium/Albuterol Sulfate 3 Ml Ampul.Neb) 3 ml INHALATION Q6HWA.RT [facility] Last Admin: 10/15/20 11:04 Dose: 3 ml Documented by: Amlodipine Besylate (Amlodipine 10 Mg Tablet) 10 mg PO DAILY [facility] Last Admin: 10/15/20 09:00 Dose: 10 mg Documented by: Atorvastatin Calcium (Atorvastatin Calcium 10 Mg Tablet) 10 mg PO QHS [facility] Budesonide (Budesonide Respules 0.5 Mg/2 Ml Ampul.Neb.) 0.5 mg INHALATION Q12H.RT [facility] Last Admin: 10/15/20 11:04 Dose: 0.5 mg Documented by: Enoxaparin Sodium (Enoxaparin 40 Mg/0.4 Ml Syringe) 40 mg SC DAILY [facility] Last Admin: 10/15/20 08:52 Dose: 40 mg Documented by: Gabapentin (Gabapentin 600 Mg Tablet) 1,200 mg PO BID [facility] Last Admin: 10/15/20 09:00 Dose: 1,200 mg Documented by: Guaifenesin (Guaifenesin 10 Ml Udc (200mg/10ml)) 20 ml PO Q4H PRN PRN PRN Reason: COUGH Hydralazine HCl (Hydralazine 20 Mg/Ml Vial) 10 mg IV Q4H PRN PRN PRN Reason: SBP > 160 Hydromorphone HCl (Hydromorphone 0.5 Mg/0.5 Ml Syringe) 0.5 mg IV Q4H PRN PRN PRN Reason: Pain Score 6-10 Last Admin: 10/15/20 11:37 Dose: 0.5 mg Documented by: Sodium Chloride () 1,000 mls @ 75 mls/hr IV .[id number] [facility] Last Infusion: 10/15/20 11:45 Dose: 75 mls/hr Documented by: Pantoprazole Sodium 40 mg/ (Sodium Chloride) 110 mls @ 330 mls/hr IV Q12 [facility] Last Infusion: 10/15/20 09:50 Dose: Infused Documented by: Insulin Glargine (Insulin Glargine 100 Units/Ml Pen) 30 units SC DAILY [facility] Last Admin: 10/15/20 11:37 Dose: 20 u Documented by: Insulin Human Lispro (Insulin Lispro 100 Unit/Ml Insuln.Pen) 0 unit SC Q6 [facility]; Protocol Last Admin: 10/15/20 11:38 Dose: 2 u Documented by: Lisinopril (Lisinopril 40 Mg Tablet) 40 mg PO DAILY [facility] Last Admin: 10/15/20 09:00 Dose: 40 mg Documented by: Magnesium Hydroxide (Magnesium Hydroxide 30 Ml Udc) 30 ml PO DAILY PRN PRN PRN Reason: Constipation Nicotine (Nicotine 7 Mg Patch) 7 mg TRANSDERM. DAILY [facility] Last Admin: 10/15/20 08:52 Dose: 7 mg Documented by: Ondansetron HCl (Ondansetron 4 Mg/2 Ml Vial) 4 mg IV Q8H PRN PRN PRN Reason: NAUSEA/VOMITING Last Admin: 10/15/20 00:07 Dose: 4 mg Documented by: Oxycodone HCl (Oxycodone 5 Mg Tablet) 10 mg PO Q4H PRN PRN PRN Reason: Pain Score 6-10 Last Admin: 10/15/20 07:00 Dose: 10 mg Documented by: Oxycodone HCl (Oxycodone 5 Mg Tablet) 5 mg PO Q4H PRN PRN PRN Reason: Pain Score 4-5 Prochlorperazine Edisylate (Prochlorperazine 10 Mg/2 Ml Vial) 5 mg IV Q4H PRN PRN PRN Reason: Breakthrough nausea/vomiting Psyllium Hydrophilic Mucilloid (Psyllium 1 Packet) 1 packet PO DAILY PRN PRN PRN Reason: Constipation Senna/Docusate Sodium (Senna/Docusate Sodium 1 Tablet) 2 tablet PO BID PRN PRN PRN Reason: Constipation Sodium Chloride (0.9% Saline Lock 10 Ml Syringe) 10 - 40 ml IV UD PRN PRN Reason: SALINE FLUSH Temazepam (Temazepam 15 Mg Capsule) 15 mg PO QHS PRN PRN PRN Reason: INSOMNIA Throat Lozenges (Benzocaine/Menthol 1 Lozenge) 1 lozenge MUCOUS MEM Q2H PRN PRN PRN Reason: SORE THROAT STROKE Vital Signs/Narrative: Vital Signs Temp Pulse Resp BP Pulse Ox 10/15/20 11:00 80 9 L 91 10/15/20 08:47 97.7 F L 79 18 111/63 92 Medical Necessity - Tobacco Use Smoking Status: Current every day smoker Tobacco Use: Cigarettes Assessment/Plan All Active Problems (Last Reviewed 10/15/20 @ 11:[address] Darrius Omer MD) Acute on chronic respiratory failure with hypoxia and hypercapnia (Acute) COPD exacerbation (Acute) Pneumonia (Acute) Acute pancreatitis (Acute) Epigastric pain (Acute) Acute respiratory failure with hypoxia (Acute) Elevated troponin (Acute) Acute respiratory failure with hypoxia and hypercapnia (Acute) History of tubal ligation (Resolved) History of section (Resolved) COPD with acute exacerbation (Acute) Hypertensive urgency (Ruled-out) Otitis media (Ruled-out) Tobacco abuse (Resolved) This is a 49-year-old female with history of COPD/asthma overlap syndrome, chronic smoking, chronic hypoxic respiratory failure on 2 L of home oxygen 16/06 came to ED with nausea, vomiting and right-sided upper abdominal pain for 2 to 3 days. 1. Right upper quadrant/abdominal pain possible acute pancreatitis/acute gastritis/PUD: Patient is being admitted on MedSurg floor. On IV fluid which is decreased to 75 mill per hour. IV PPI twice daily. Serum lipase 290 which improved to 174 so not elevated to account for acute pancreatitis. Patient had right upper quadrant sonogram on 10/12/2020 reported no acute finding but increased liver echogenicity suggestive of fatty infiltration. CBD 4 mm. GB wall 2 mm, normal. No pericholecystic fluid. No gallstones. Negative Parks sign. Visualized pancreas was unremarkable with normal echogenicity of pancreas. Minimally dilated pancreatic duct 3 [address] further had [address] abdomen with IV contrast which reported mild pancreatic head enlargement with peripancreatic edema suggestive of acute pancreatitis. Seen by Dr. Omer and discussed with him. Plan for EGD tomorrow a.m. Try to get HIDA scan which was done few years ago in clinic clinic [place]. Continue IV PPI twice daily. If it still was not found cause, patient might need MRCP. 2. COPD with chronic hypoxic respiratory failure. Mild COPD exacerbation: Patient is actively wheezing, cough, short of breath with increased expiratory time. Scheduled DuoNeb with as needed albuterol, IV Solu-Medrol 40 mg every 8- hour, incentive spirometry and pep and Mucinex. 3. Diabetes mellitus type II: Clear liquid diet is started with n.p.o. after midnight for EGD tomorrow a.m. Accu-Chek SHS and cover with Hem-o-yesenia sliding scale. 4. Morbid Obesity: Weight loss and lifestyle changes encouraged, may consider nutrition consultation for education and teaching. 5. Hypertension: Continue home regimen including Norvasc, lisinopril, temporarily holding hydrochlorothiazide given presentation with hydration, resume once appropriate, PRN hydralazine. 6. Hyperlipidemia: Continue home statin regimen. FLP in AM. 7. GERD: We will maintain on PPI. 8. DVT prophylaxis: SCDs, Lovenox. Microbiology Past 72 Hours 10/14/20 13:00 Mucosa - Nose SARS-CoV-2 Antigen (Rapid) - Final Laboratory Results 10/14/20 21:00: WBC 11.0, RBC 6.02 H, Hgb 17.8 H, Hct 55.2 H, MCV 91.7, MCH 29.6, MCHC 32.2, RDW Std Deviation 44.6 H, RDW Coeff of Marcy 13.2, Plt Count 392, MPV 11.2, Immature Gran % (Auto) 0.300, Neut % (Auto) 65.1, Lymph % (Auto) 22.8, [place] % (Auto) 9.9, Eos % (Auto) 1.3, Baso % (Auto) 0.6, Absolute Neuts (auto) 7.1, Absolute Lymphs (auto) 2.50, Nucleated RBC % 0 10/14/20 21:00: Sodium 136, Potassium 4.2, Chloride 96 L, Carbon Dioxide 36.0 H, Anion Gap 4 L, BUN 17, Creatinine 0.83, Estim Creat Clear Calc 65.56, Est GFR (MDRD) Af Amer 94, Est GFR (MDRD) Non-Af 78, BUN/Creatinine Ratio 20.5 H, Glucose 398 H, Calcium 10.1, Total Bilirubin 0.20, AST 7 L, ALT 21, Alkaline Phosphatase 146 H, Total Protein 7.7, Albumin 3.4, Globulin 4.3 H, Albumin/Globulin Ratio 0.8 L, Lipase 290 10/14/20 21:00: Serum , Qual NEGATIVE 10/15/20 00:23: POC Glucose 301 H 10/15/20 05:48: POC Glucose 209 H 10/15/20 06:20: Sodium 140, Potassium 4.1, Chloride 102, Carbon Dioxide 34.0 H, Anion Gap 4 L, BUN 15, Creatinine 0.56, Estim Creat Clear Calc 97.17, Est GFR (MDRD) Af Amer 147, Est GFR (MDRD) Non-Af 121, BUN/Creatinine Ratio 26.5 H, Glucose 194 H, Calcium 9.1, Total Bilirubin 0.30, AST 6 L, ALT 15, Alkaline Phosphatase 103, Total Protein 6.1 L, Albumin 2.7 L, Globulin 3.4, Albumin/ Globulin Ratio 0.8 L, Triglycerides 125, Cholesterol 140, LDL Cholesterol 84, VLDL Cholesterol 25, HDL Cholesterol 31 L, Amylase 16 L, Lipase 174 10/15/20 06:20: WBC 7.8, RBC 5.27, Hgb 14.9, Hct 49.2 H, MCV 93.4, MCH 28.3, MCHC 30.3 L D, RDW Std Deviation 46.0 H, RDW Coeff of Marcy 13.3, Plt Count 338, MPV 11.0, Immature Gran % (Auto) 0.100, Neut % (Auto) 56.2, Lymph % (Auto) 30.9, [place] % (Auto) 9.9, Eos % (Auto) 2.3, Baso % (Auto) 0.6, Absolute Neuts (auto) 4.4, Absolute Lymphs (auto) 2.41, Nucleated RBC % 0 10/15/20 06:20: Hepatitis A IgM Ab Pending, Hepatitis A Ab Total Pending, Hep Bs Antigen Pending, Hep B Core Total Ab Pending, Hep B Core IgM Ab Pending 10/15/20 11:36: POC Glucose 183 H Microbiology Past 72 Hours 10/14/20 13:00 Mucosa - Nose SARS-CoV-2 Antigen (Rapid) - Final Clinical Impression(s) from Imaging Studies Abdomen/Pelvis CT 10/14/20 20:55 IMPRESSION: Mild enlargement of the pancreatic head with mild peripancreatic edema consistent with acute pancreatitis. Unremarkable liver and spleen with a nondistended gallbladder. No acute renal findings or changes. Stable simple right renal cysts. No acute bowel related findings. Negative for obstruction, perforation or inflammatory bowel changes. Stable fibroid uterus. Status post tubal ligation with an IUD in the endometrial space. Otherwise negative for pelvic mass or free fluid of the pelvis. Inpatient E&M: 10358 Subs Hosp L2
[2020-10-15] MEDS: guaiFENesin 1,200 MG Tablet 1200 MG PO ×2 (15:03→22:03)
[2020-10-15] MEDS: 0.9% Normal Saline 1,000 ML 75 ML IV (15:09)
[2020-10-15 17:05] LABS: Bedside Glucose 364 mg/dL (70-110)
[2020-10-15] MEDS: Ensure Clear 120 ML Liquid PO (17:58)
[2020-10-15] MEDS: Atorvastatin Calcium 10 MG Tablet PO (22:03)
[2020-10-15 22:15] LABS: Bedside Glucose 340 mg/dL (70-110)
[2020-10-16] VITALS (12 sets, daily range): BP systolic 100–127; BP diastolic 51–82; PULSE 68–101; RESP 16–24; TEMP 36.6–37.2; O2SAT 94–98; BMI 40.4
[2020-10-16] LABS: Bedside Glucose 275 mg/dL (70-110)
[2020-10-16] MEDS: Albuterol 2.5 MG/3 ML VIAL.NEB. INHALATION (00:18)
[2020-10-16] MEDS: Insulin Lispro 100 UNIT/ML INSULN.PEN SC ×5 (00:52→23:09)
[2020-10-16] MEDS: HYDROmorphone 0.5 MG/0.5 ML SYRINGE IV ×3 (00:55→09:43)
--- NOTE | 2020-10-16 05:00 | EKG12_ITS ---
Test Reason : AM EKG Blood Pressure : / mmHG Vent. Rate : 088 BPM Atrial Rate : 088 BPM P-R Int : 156 ms QRS Dur : 076 ms QT Int : 348 ms P-R-T Axes : 000 -13 039 degrees QTc Int : 421 ms Normal sinus rhythm Septal infarct , age undetermined Abnormal ECG When compared with ECG of 11-JUL-2020 10:18, Questionable change in QRS axis Confirmed by JASON MARTINEZ, BATSHEVA ([id number]), film editor supervisor DOV LONGO ([id number]) on 10/17/2020 9:39:12 AM Referred By: Neetu Richey Confirmed By:BATSHEVA GOMEZ MD
[2020-10-16] MEDS: 0.9% Normal Saline 1,000 ML 75 ML IV (05:41)
[2020-10-16 06:41] LABS: Bedside Glucose 302 mg/dL (70-110)
[2020-10-16 06:48] LABS: ALB/GLOB Ratio 0.7 RATIO (0.9-2.4); AST(SGOT) 9 U/L (15-37); Alanine Aminotransfer ALT/SGPT 17 U/L (13-56); Albumin, Serum 2.6 g/dL (3.2-5.0); Alkaline Phosphatase 93 U/L (45-117); Anion Gap 4 (5-15); BUN 10 mg/dL (7-18); BUN/Creat Ratio 16.7 RATIO (10-20); Calcium,Total 8.6 mg/dL (8.5-10.1); Chloride 105 mmol/L (98-107); EST Glomerular Filtration Rate 113 mL/min (>60); Est Glom Filt Rate - Afr Amer 137 mL/min (>60); Estimated Creatinine Clearance 90.69 ml/min; Globulin 3.7 g/dL (2.2-4.2); Glucose 270 mg/dL (74-106); Potassium 4.7 mmol/L (3.5-5.1); Protein, Total 6.3 g/dL (6.4-8.2); Sodium Level 136 mmol/L (136-145)
[2020-10-16] MEDS: Ipratropium/Albuterol Sulfate 3 ML AMPUL.NEB INHALATION ×3 (07:04→23:50)
--- NOTE | 2020-10-16 07:33 | PN_ITS ---
Patient Problems: Active and Suspected Problems (Last Reviewed 10/15/20 @ 11:[address] Darrius Omer MD) Acute pancreatitis (Acute) Epigastric pain (Acute) CARSON (obstructive sleep apnea) (Suspected) Reason for Visit: Follow-up for abdominal pain. Objective: Heart rate and blood pressure is good in normal range. Patient complains of left eye irritation and redness. She put on make-up yesterday evening. Does not have left eye pain. Patient had EGD in the morning. Physical exam General: Alert, Oriented x3, Cooperative HEENT: Atraumatic, PERRLA, EOMI, Normocephalic. Left eye mild superficial conjunctival hyperemia and patchy erythema and watery. No tenderness. Oral: No Gingival or Mucosal Lesions/ Ulcerations Neck: Supple, No JVD, Negative Carotid Bruits Lungs: Air entry diminished in bilateral lung bases. Bilateral expiratory wheezing and rhonchi present. On 4 L of oxygen Cardiovascular: Regular rate, Regular Rhythm, Normal S1, Normal S2, No murmurs Abdomen: Mild tenderness in epigastrium and right upper quadrant. Bowel Sounds Present, Soft, Non-Distended. No palpable mass. : No renal angle tenderness. No suprapubic tenderness. Extremities: No edema, Capillary Refill Less than 3 Seconds Skin: No rashes, No breakdown Musculoskeletal: No Tenderness to Palpation of Joints or Extremities Neurological: Cranial nerves II-XII grossly intact, Deep Tendon Reflexes 2+/4 and Symmetrical, Neuro grossly intact Psych/Mental Status: Normal Affect, Appropriate. Vitals/I&O's: Vital Signs Temp Pulse Resp BP Pulse Ox 97.8 F 68 18 110/51 L 94 10/16/20 03:00 10/16/20 03:00 10/16/20 03:00 10/16/20 03:00 10/16/20 03:00 Oxygen Flow Rate (L/min) 2 Oxygen Delivery Method Nasal Cannula Weight: 220 lb 14.451 oz Body Mass Index (BMI) 40.4 Intake and Output for Last 24 Hours 10/14/20 10/15/20 10/16/20 23:59 23:59 23:59 Intake Total 1000 / 1000 3455 / 4005 1550 / 1550 Balance 1000 / 1000 3455 / 4005 1550 / 1550 Microbiology Past 72 Hours 10/14/20 13:00 Mucosa - Nose SARS-CoV-2 Antigen (Rapid) - Final Laboratory Results 10/15/20 06:20: Sodium 140, Potassium 4.1, Chloride 102, Carbon Dioxide 34.0 H, Anion Gap 4 L, BUN 15, Creatinine 0.56, Estim Creat Clear Calc 97.17, Est GFR (MDRD) Af Amer 147, Est GFR (MDRD) Non-Af 121, BUN/Creatinine Ratio 26.5 H, Glucose 194 H, Calcium 9.1, Total Bilirubin 0.30, AST 6 L, ALT 15, Alkaline Phosphatase 103, Total Protein 6.1 L, Albumin 2.7 L, Globulin 3.4, Albumin/Globulin Ratio 0.8 L, Triglycerides 125, Cholesterol 140, LDL Cholesterol 84, VLDL Cholesterol 25, HDL Cholesterol 31 L, Amylase 16 L, Lipase 174 10/15/20 06:20: WBC 7.8, RBC 5.27, Hgb 14.9, Hct 49.2 H, MCV 93.4, MCH 28.3, M CHC 30.3 L D, RDW Std Deviation 46.0 H, RDW Coeff of Marcy 13.3, Plt Count 338, MPV 11.0, Immature Gran % (Auto) 0.100, Neut % (Auto) 56.2, Lymph % (Auto) 30.9, [place] % (Auto) 9.9, Eos % (Auto) 2.3, Baso % (Auto) 0.6, Absolute Neuts (auto) 4.4, Absolute Lymphs (auto) 2.41, Nucleated RBC % 0 10/15/20 11:36: POC Glucose 183 H 10/15/20 16:42: POC Glucose 364 H 10/15/20 21:58: POC Glucose 340 H 10/15/20 23:46: POC Glucose 275 H 10/16/20 05:39: POC Glucose 302 H 10/16/20 05:45: Sodium 136, Potassium 4.7, Chloride 105, Carbon Dioxide 27.0, Anion Gap 4 L, BUN 10, Creatinine 0.60, Estim Creat Clear Calc 90.69, Est GFR (MDRD) Af Amer 137, Est GFR (MDRD) Non-Af 113, BUN/Creatinine Ratio 16.7, Glucose 270 H, Calcium 8.6, Total Bilirubin 0.20, AST 9 L, ALT 17, Alkaline Phosphatase 93, Total Protein 6.3 L, Albumin 2.6 L, Globulin 3.7, Albumin/Globulin Ratio 0.7 L 10/16/20 05:45: Hemoglobin A1c Pending Current Medications Acetaminophen (Acetaminophen 325 Mg Tablet) 650 mg PO Q6H PRN PRN PRN Reason: Pain Score 1-10/Temp > 100.7 F Al Hydroxide/Mg Hydroxide (Mag Hydrox/Al Hydrox/Simeth 30 Ml Udc) 30 ml PO Q6H PRN PRN PRN Reason: Gastric Burning Albuterol Sulfate (Albuterol 2.5 Mg/3 Ml Vial.Neb.) 2.5 mg INHALATION Q2H PRN PRN PRN Reason: Dyspnea, wheezing Last Admin: 10/16/20 00:18 Dose: 2.5 mg Documented by: Albuterol/Ipratropium (Ipratropium/Albuterol Sulfate 3 Ml Ampul.Neb) 3 ml INHALATION Q6HWA.RT [facility] Last Admin: 10/16/20 07:04 Dose: 3 ml Documented by: Amlodipine Besylate (Amlodipine 10 Mg Tablet) 10 mg PO DAILY [facility] Last Admin: 10/15/20 09:00 Dose: 10 mg Documented by: Atorvastatin Calcium (Atorvastatin Calcium 10 Mg Tablet) 10 mg PO QHS [facility] Last Admin: 10/15/20 22:03 Dose: 10 mg Documented by: Enoxaparin Sodium (Enoxaparin 40 Mg/0.4 Ml Syringe) 40 mg SC DAILY [facility] Last Admin: 10/15/20 08:52 Dose: 40 mg Documented by: Gabapentin (Gabapentin 600 Mg Tablet) 1,200 mg PO BID [facility] Last Admin: 10/15/20 22:06 Dose: 1,200 mg Documented by: Guaifenesin (Guaifenesin 1,200 Mg Tablet) 1,200 mg PO BID [facility] Last Admin: 10/15/20 22:03 Dose: 1,200 mg Documented by: Hydralazine HCl (Hydralazine 20 Mg/Ml Vial) 10 mg IV Q4H PRN PRN PRN Reason: SBP > 160 Hydromorphone HCl (Hydromorphone 0.5 Mg/0.5 Ml Syringe) 0.5 mg IV Q4H PRN PRN PRN Reason: Pain Score 6-10 Last Admin: 10/16/20 05:46 Dose: 0.5 mg Documented by: Sodium Chloride () 1,000 mls @ 75 mls/hr IV .[id number] [facility] Last Admin: 10/16/20 05:41 Dose: 75 mls/hr Documented by: Pantoprazole Sodium 40 mg/ (Sodium Chloride) 110 mls @ 330 mls/hr IV Q12 [facility] Last Infusion: 10/15/20 22:21 Dose: Infused Documented by: Insulin Glargine (Insulin Glargine 100 Units/Ml Pen) 30 units SC DAILY [facility] Last Admin: 10/15/20 11:37 Dose: 20 u Documented by: Insulin Human Lispro (Insulin Lispro 100 Unit/Ml Insuln.Pen) 0 unit SC Q6 [facility]; Protocol Last Admin: 10/16/20 05:42 Dose: 6 u Documented by: Lisinopril (Lisinopril 40 Mg Tablet) 40 mg PO DAILY [facility] Last Admin: 10/15/20 09:00 Dose: 40 mg Documented by: Methylprednisolone (Methylprednisolone 40 Mg/Ml Vial) 40 mg IV Q8 [facility] Stop: 10/16/20 14:01 Last Admin: 10/16/20 05:41 Dose: 40 mg Documented by: Nicotine (Nicotine 7 Mg Patch) 7 mg TRANSDERM. DAILY [facility] Last Admin: 10/15/20 08:52 Dose: 7 mg Documented by: Nutritional Formula (Lactose Free) (Ensure Clear 120 Ml Liquid) 120 ml PO 4X /DAY [facility] Last Admin: 10/15/20 22:03 Dose: Not Given Documented by: Ondansetron HCl (Ondansetron 4 Mg/2 Ml Vial) 4 mg IV Q8H PRN PRN PRN Reason: NAUSEA/VOMITING Last Admin: 10/15/20 00:07 Dose: 4 mg Documented by: Oxycodone HCl (Oxycodone 5 Mg Tablet) 10 mg PO Q4H PRN PRN PRN Reason: Pain Score 6-10 Last Admin: 10/15/20 20:38 Dose: 10 mg Documented by: Oxycodone HCl (Oxycodone 5 Mg Tablet) 5 mg PO Q4H PRN PRN PRN Reason: Pain Score 4-5 Prochlorperazine Edisylate (Prochlorperazine 10 Mg/2 Ml Vial) 5 mg IV Q4H PRN PRN PRN Reason: Breakthrough nausea/vomiting Psyllium Hydrophilic Mucilloid (Psyllium 1 Packet) 1 packet PO DAILY PRN PRN PRN Reason: Constipation Senna/Docusate Sodium (Senna/Docusate Sodium 1 Tablet) 2 tablet PO BID PRN PRN PRN Reason: Constipation Sodium Chloride (0.9% Saline Lock 10 Ml Syringe) 10 - 40 ml IV UD PRN PRN Reason: SALINE FLUSH Temazepam (Temazepam 15 Mg Capsule) 15 mg PO QHS PRN PRN PRN Reason: INSOMNIA Throat Lozenges (Benzocaine/Menthol 1 Lozenge) 1 lozenge MUCOUS MEM Q2H PRN PRN PRN Reason: SORE THROAT Medical Necessity - Tobacco Use Smoking Status: Current every day smoker Tobacco Use: Cigarettes Assessment/Plan All Active Problems (Last Reviewed 10/15/20 @ 11:[address] Darrius Omer MD) Acute on chronic respiratory failure with hypoxia and hypercapnia (Acute) COPD exacerbation (Acute) Pneumonia (Acute) Acute pancreatitis (Acute) Epigastric pain (Acute) Acute respiratory failure with hypoxia (Acute) Elevated troponin (Acute) Acute respiratory failure with hypoxia and hypercapnia (Acute) History of tubal ligation (Resolved) History of section (Resolved) COPD with acute exacerbation (Acute) Hypertensive urgency (Ruled-out) Otitis media (Ruled-out) Tobacco abuse (Resolved) This is a 49-year-old female with history of COPD/asthma overlap syndrome, chronic smoking, chronic hypoxic respiratory failure on 2 L of home oxygen 16/06 came to ED with nausea, vomiting and right-sided upper abdominal pain for 2 to 3 days. 1. Right upper quadrant/abdominal pain possible acute pancreatitis/acute gastritis/PUD: Patient is being admitted on MedSurg floor. On IV fluid which is decreased to 75 mill per hour. IV PPI twice daily. Serum lipase 290 which improved to 174 so not elevated to account for acute pancreatitis. Patient had right upper quadrant sonogram on 10/12/2020 reported no acute finding but increased liver echogenicity suggestive of fatty infiltration. CBD 4 mm. GB wall 2 mm, normal. No pericholecystic fluid. No gallstones. Negative Parks sign. Visualized pancreas was unremarkable with normal echogenicity of pancreas. Minimally dilated pancreatic duct 3 mm. Patient further had CT abdomen with IV contrast which reported mild pancreatic head enlargement with peripancreatic edema suggestive of acute pancreatitis. Seen by Dr. Omer and discussed with him. If it still was not found cause, patient might need MRCP. 10/16: Patient had EGD and shows mild gastritis in the prepyloric area. On PPI. Patient still complains of abdominal pain. Reviewed the [facility] will start record. Change PPI to oral. 2. COPD with chronic hypoxic respiratory failure. Mild COPD exacerbation: Patient is actively wheezing, cough, short of breath with increased expiratory time. Scheduled DuoNeb with as needed albuterol, incentive spirometry and pep and Mucinex. 3. Diabetes mellitus type II: Clear liquid diet is started with n.p.o. after midnight for EGD tomorrow a.m. Accu-Chek SHS and cover with Hem-o-yesenia sliding scale. A1c 11.0. Glucose is high was due to Solu-Medrol which is discontinued. Lantus insulin dose increased. 4. Morbid Obesity: Weight loss and lifestyle changes encouraged, may consider nutrition consultation for education and teaching. 5. Hypertension: Continue home regimen including Norvasc, lisinopril, temporarily holding hydrochlorothiazide given presentation with hydration, resume once appropriate, PRN hydralazine. 6. Hyperlipidemia: Continue home statin regimen. FLP in AM. 7. GERD: We will maintain on PPI. 8. DVT prophylaxis: SCDs, Lovenox. Microbiology Past 72 Hours 10/14/20 13:00 Mucosa - Nose SARS-CoV-2 Antigen (Rapid) - Final Laboratory Results 10/15/20 16:42: POC Glucose 364 H 10/15/20 21:58: POC Glucose 340 H 10/15/20 23:46: POC Glucose 275 H 10/16/20 05:39: POC Glucose 302 H 10/16/20 05:45: Sodium 136, Potassium 4.7, Chloride 105, Carbon Dioxide 27.0, Anion Gap 4 L, BUN 10, Creatinine 0.60, Estim Creat Clear Calc 90.69, Est GFR (MDRD) Af Amer 137, Est GFR (MDRD) Non-Af 113, BUN/Creatinine Ratio 16.7, Glucose 270 H, Calcium 8.6, Total Bilirubin 0.20, AST 9 L, ALT 17, Alkaline Phosphatase 93, Total Protein 6.3 L, Albumin 2.6 L, Globulin 3.7, Albumin/Globulin Ratio 0.7 L 10/16/20 05:45: Hemoglobin A1c 11.0 H 10/16/20 13:51: POC Glucose 256 H Clinical Impression(s) from Imaging Studies Abdomen/Pelvis CT 10/14/20 20:55 IMPRESSION: Mild enlargement of the pancreatic head with mild peripancreatic edema consistent with acute pancreatitis. Unremarkable liver and spleen with a nondistended gallbladder. No acute renal findings or changes. Stable simple right renal cysts. No acute bowel related findings. Negative for obstruction, perforation or inflammatory bowel changes. Stable fibroid uterus. Status post tubal ligation with an IUD in the endometrial space. Otherwise negative for pelvic mass or free fluid of the pelvis. Inpatient E&M: 57327 Subs Hosp L2
[2020-10-16] MEDS: 0.9% Saline Lock 10 ML Syringe IV ×2 (08:47→09:45)
--- NOTE | 2020-10-16 10:17 | NURSING ---
pt transported off unit at this time via bed
--- NOTE | 2020-10-16 11:15 | IMM_PTH ---
PATIENT: ESTIVEN LONG LOC: MS3 U#:[id number] AGE/SX: 49/F ROOM: MS311 RE10/14/[address]: Dr. Monty Abdi MD : 1970 BED: 1 DIS: 10/17/2020 SPEC #: [id number] RECD: 10/16/20 14:58 STATUS: SOUEcho REQ #: [id number] PHILLIP: 10/16/20 11:[address]: Darrius Omer DEPT: IMMUNOHISTOCHEMISTRY RECD BY: Luisa Lennon ENTERED: 10/16/20 14:59 SP TYPE: IMMUNO OTHR DR: MD Dr. Rita Woods MD Dr. Prakash Chand, MD Tissues: B - Stomach, NOS Procedures: H Pylori (initial) PHYSICIAN & INSTITUTION [place] [address] SPECIMEN INFORMATION: Tissue Source: B - Antrum biopsy Clinical Info: GERD, epigastric pain, pancreatitis Specimen Number: [id number] CPT code: 17816 METHODOLOGY: Deparaffinized sections of prefer/formalin-fixed tissue or PAP/DQ stained slides are incubated with monoclonal/polyclonal antibodies/oligonucleotide probes. Localization is made via biotin free immunoperoxidase method. Appropriate controls are performed and reacted as expected. Results on target cell population are indicated in the following table: RESULTS: ANTIBODY / CLONE RESULT Block B H Pylori (polyclonal) negative These tests were developed and their performance characteristics determined by [facility]. They may not have been cleared or approved by the U.S. Food and Drug Administration. The FDA has determined that such clearance or approval is not necessary. INTERPRETATION: B. Antrum biopsy: Negative for Helicobacter pylori organisms. AM:shaila 10/17/20
--- NOTE | 2020-10-16 11:15 | EGD_PTH ---
PATIENT: ESTIVEN LONG LOC: MS3 U#:[id number] AGE/SX: 49/F ROOM: MS311 RE10/14/[address]: Dr. Monty Abdi MD : 1970 BED: 1 DIS: 10/17/2020 SPEC #: [id number] RECD: 10/16/20 13:21 STATUS: REED RE #: [id number] PHILLIP: 10/16/20 11:[address]: Darrius Omer DEPT: SURGICAL PATHOLOGY RECD BY: Amy Armstrong ENTERED: 10/16/20 13:53 SP TYPE: EGD BIOPSY OTHR DR: MD Dr. Darrius Woods MD Dr. Liza D Talampas, MD Dr. Prakash Chand, MD Tissues: A - Duodenum, NOS B - Gastric mucous membrane Procedures: Surgery Specimen Level IV Comments: @ Ordering doctor for SUIV edited from to @ by ASHLIE at 10/17/20 0811 @ Submitting doctor edited from to @ by ASHLIE at 10/17/20 0811 HEADER OPERATION: EGD ([facility]) PRE-OP DIAGNOSIS: GERD, epigastric pain, pancreatitis TISSUE SUBMITTED: A - Duodenum biopsy, B - Antrum biopsy for H. pylori and path MICROSCOPIC DIAGNOSIS A. Duodenum, biopsy: Minimal nonspecific chronic inflammation. B. Gastric antrum, biopsy: Mild chronic gastritis. See comment. AM:shaila 10/17/20 COMMENT B. The results of immunohistochemistry for Helicobacter pylori will be reported separately ([id number]). MICROSCOPIC DESCRIPTION Slides are reviewed. GROSS DESCRIPTION A - Received in fixative is one container labeled with the patient's name and designated duodenum biopsy. The specimen consists of two irregular fragments of light osborn soft tissue that in aggregate measure 0.6 x 0.5 x 0.1 cm. The specimen is totally submitted in one cassette. B - Received in fixative is one container labeled with the patient's name and designated antrum biopsy. The specimen consists of one irregular fragment of light osborn soft tissue that measures 0.7 x 0.2 x 0.1 cm. The specimen is totally submitted in one cassette. / AM:shaila 10/16/20 TC:3 CPT: 20962 x2
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
--- NOTE | 2020-10-16 12:39 | OP.CCLET_ITS ---
10/16/2020 Rita Melton [address] [place] [address] Re : Upper GI endoscopy procedure for Nola Self Dear Dr. Melton This procedure was performed on Friday, October 16, 2020. My impressions and recommendations are as follows: Impressions : - Normal esophagus. - Gastritis. Biopsied. - Normal examined duodenum. Biopsied. Recommendations : - Await pathology results. - Repeat upper endoscopy (date not yet determined) for surveillance. - Return to primary care physician (date not yet determined). - Continue present medications. My findings are described in the full procedure note, which is enclosed. If I can be of further assistance, please feel free to contact me at Doctor phone number(s): , Fax: [phone], Work: . Sincerely, MD Darrius New MD 10/16/2020 12:38:31 PM This report has been signed electronically.
--- NOTE | 2020-10-16 12:39 | OP.EGD_ITS ---
Patient Name: Nola Self Procedure Date: 10/16/2020 12:04 PM Date of : 1970 Age: 49 Procedure: Upper GI endoscopy Indications: Abdominal pain in the right upper quadrant Providers: Darrius Omer MD Referring MD: Neetu Richey Medicines: See the Anesthesia note for documentation of the administered medications Patient Profile: This is a 49 year old female. Refer to note in patient chart for documentation of history and physical. Complications: No immediate complications. Procedure: Pre-Anesthesia Assessment: - Prior to the procedure, a History and Physical was performed, and patient medications and allergies were reviewed. The patient's tolerance of previous anesthesia was also reviewed. The risks and benefits of the procedure and the sedation options and risks were discussed with the patient. All questions were answered, and informed consent was obtained. Prior Anticoagulants: The patient has taken no previous anticoagulant or antiplatelet agents. ASA Grade Assessment: II - A patient with mild systemic disease. After reviewing the risks and benefits, the patient was deemed in satisfactory condition to undergo the procedure. After obtaining informed consent, the endoscope was passed under direct vision. Throughout the procedure, the patient's blood pressure, pulse, and oxygen saturations were monitored continuously. The Endoscope was introduced through the mouth, and advanced to the second part of duodenum. The upper GI endoscopy was accomplished without difficulty. The patient tolerated the procedure well. Scope In: 12:17:04 PM Scope Out: 12:21:28 PM Total Procedure Duration Time 0 hours 4 minutes 24 seconds Findings: The examined esophagus was normal. Localized minimal inflammation characterized by erythema was found in the prepyloric region of the stomach. Biopsies were taken with a cold forceps for Helicobacter pylori testing. The examined duodenum was normal. Biopsies for histology were taken with a cold forceps for evaluation of celiac disease. Impression: - Normal esophagus. - Gastritis. Biopsied. - Normal examined duodenum. Biopsied. Recommendation: - Await pathology results. - Repeat upper endoscopy (date not yet determined) for surveillance. - Return to primary care physician (date not yet determined). - Continue present medications. Procedure Code(s): --- Professional --- 03853, Esophagogastroduodenoscopy, flexible, transoral; with biopsy, single or multiple Diagnosis Code(s): --- Professional --- K29.70, Gastritis, unspecified, without bleeding R10.11, Right upper quadrant pain CPT copyright 2017 [employer]. All rights reserved. The codes documented in this report are preliminary and upon cpc coder review may be revised to meet current compliance requirements. MD Darrius New MD 10/16/2020 12:38:31 PM This report has been signed electronically. Number of Addenda: 0 Note Initiated On: 10/16/2020 12:04 PM
[2020-10-16] MEDS: oxyCODONE 5 MG Tablet 10 MG PO ×3 (13:51→22:03)
[2020-10-16] MEDS: guaiFENesin 1,200 MG Tablet 1200 MG PO ×2 (13:52→21:41)
[2020-10-16] MEDS: amLODIPine 10 MG Tablet PO (13:52)
[2020-10-16] MEDS: Lisinopril 40 MG Tablet PO (13:54)
[2020-10-16] MEDS: Gabapentin 600 MG Tablet 1200 MG PO ×2 (13:58→21:41)
[2020-10-16] MEDS: Ensure Clear 120 ML Liquid PO (13:58)
[2020-10-16 14:16] LABS: Bedside Glucose 256 mg/dL (70-110)
--- NOTE | 2020-10-16 14:40 | CASEMGMT ---
RN HOANG Face to Face with patient for initial transition planning/care coordination assessment. RN CM introduced self and role at [facility]. Patient lying in bed, alert and oriented. Patient willing to participate in assessment and is able to answer all questions appropriately. Care providers, pharmacy, and demographics verified. Patient wishes to discharge home, denies need for home health at this time. Patient states she has no further needs or concerns at this time. CM to follow for discharge planning needs that may arise. PCP: [facility] Specialists: none Preferred Pharmacy: [facility] Insurance: [employer] Prescription Benefit: yes Living Will/HPOA: none LNOK: boyfriend Living Arrangements: patient lives with boyfriend in a mobile home with 4 steps and railing to enter the home. Patient states she is independent at home. Transportation: Boyfriend DME/HHC: Patient states she has a shower chair, nebulizer, and home oxygen 3-4 liters through [employer] at home. Disposition Plan: Patient to discharge home with family support and follow-up plans in place. Cindi CUELLAR, RN, CM
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
--- NOTE | 2020-10-16 15:29 | CHAPLAIN ---
Type of Pastoral Visit _x__ Initial Visit ___ Follow-up Visit ___ On-call Visit ___ General Patient Visit ___ Spiritual Assessment ___ Family Conference ___ Bereavement ___ Rapid Response ___ Code Blue ___ Other (describe below) Pastoral Care Referral From _x__ Patient ___ Family ___ Nurse ___ Physician ___ Window Trimmer Apprentice ___ Gravel Inspector ___ Other (describe below) Sacrament/Intervention _x__ Active listening ___ Anointing ___ Rastafari ___ Bereavement ___ Communion ___ Ann exploration ___ ___ Life review _x__ Prayer ___ Reconciliation ___ Sacrament of Sick _x__ Supportive presence ___ Wedding ___ Other (describe below) Pastoral Comments patient expresses anxiety and a request for prayer; this training and development coordinator offered patient some word search puzzles for purpose of occupying her time/mind; pt received these puzzles and said this makes my day
[2020-10-16 17:06] LABS: Bedside Glucose 304 mg/dL (70-110)
[2020-10-16] MEDS: Atorvastatin Calcium 10 MG Tablet PO (21:41)
[2020-10-16] MEDS: Pantoprazole Sodium 40 MG Tablet PO (21:45)
[2020-10-16 21:50] LABS: Bedside Glucose 363 mg/dL (70-110)
[2020-10-16 23:16] LABS: Bedside Glucose 322 mg/dL (70-110)
[2020-10-17] VITALS (9 sets, daily range): BP systolic 107–140; BP diastolic 55–103; PULSE 76–95; RESP 12–30; TEMP 36.4–37; O2SAT 91–97
[2020-10-17] MEDS: oxyCODONE 5 MG Tablet 10 MG PO ×2 (02:43→10:05)
--- NOTE | 2020-10-17 05:55 | MRI_ITS ---
STUDY: MR MRCP WITHOUT CONTRAST REASON FOR EXAM: Female, 49 years old. ruq pain, r/o pancreatic or cbd stone, N/V TECHNIQUE: Standard MRCP technique was utilized. COMPARISON: None. FINDINGS: Gall Bladder: Normal with no distention or demonstrated fixed intraluminal filling defect. Cystic duct: Normal with no demonstrated fixed filling defect. Intrahepatic ducts: Normal visualized intrahepatic ducts with no demonstrated fixed filling defect, dilation or stricture. Common hepatic duct: Normal with no demonstrated fixed filling defect, dilation or stricture. Common bile duct: Normal with no demonstrated fixed filling defect, dilation or stricture. Pancreatic duct: Normal with no demonstrated fixed filling defect, dilation or stricture. MRI/MRCP Abdomen without Contrast IMPRESSION: Normal MR Cholangiopancreatography (MRCP). Electronically Signed: Wyatt Pinzon, at 11:01 EST Tel , Service support ,
[2020-10-17] MEDS: Insulin Lispro 100 UNIT/ML INSULN.PEN SC ×2 (06:11→11:32)
[2020-10-17 06:15] LABS: Bedside Glucose 281 mg/dL (70-110)
[2020-10-17] MEDS: Ipratropium/Albuterol Sulfate 3 ML AMPUL.NEB INHALATION ×2 (06:38→13:00)
[2020-10-17 06:49] LABS: ALB/GLOB Ratio 0.8 RATIO (0.9-2.4); AST(SGOT) 10 U/L (15-37); Alanine Aminotransfer ALT/SGPT 16 U/L (13-56); Albumin, Serum 2.7 g/dL (3.2-5.0); Alkaline Phosphatase 99 U/L (45-117); Anion Gap 3 (5-15); BUN 14 mg/dL (7-18); BUN/Creat Ratio 21.7 RATIO (10-20); Calcium,Total 8.4 mg/dL (8.5-10.1); Chloride 104 mmol/L (98-107); Creatinine, Serum 0.65 mg/dL (0.55-1.02); EST Glomerular Filtration Rate 104 mL/min (>60); Est Glom Filt Rate - Afr Amer 126 mL/min (>60); Estimated Creatinine Clearance 83.71 ml/min; Globulin 3.3 g/dL (2.2-4.2); Glucose 294 mg/dL (74-106); Potassium 4.2 mmol/L (3.5-5.1); Sodium Level 138 mmol/L (136-145)
[2020-10-17 07:07] LABS: HEPATITIS B SURFACE AG Negative (Negative); Hepatitis A AB, Total Negative (Negative); Hepatitis A IgM Antibody Negative (Negative); Hepatitis B Core AB IgM Negative (Negative); Hepatitis B Core Ab Total Negative (Negative); Hepatitis C Ab <0.1 s/co ratio (0.0-0.9)
[2020-10-17] MEDS: LORazepam 2 MG/ML Syringe 1 MG IV (08:03)
[2020-10-17] MEDS: 0.9% Saline Lock 10 ML Syringe IV (08:04)
--- NOTE | 2020-10-17 09:24 | PN.SURG_ITS ---
Patient Problems: Active and Suspected Problems (Last Reviewed 10/15/20 @ 11:[address] Darrius Omer MD) Acute pancreatitis (Acute) Epigastric pain (Acute) CARSON (obstructive sleep apnea) (Suspected) Subjective: Patient's abdominal pain improved. She denies nausea, vomiting. She is tolerating a diet. Upper scope with minimal amount of gastritis. HIDA scan was read as normal gallbladder response in 2016. MRCP was unremarkable. - Physical Exam Vitals/I&O's: Vital Signs Temp Pulse Resp BP Pulse Ox 97.6 F L 82 13 129/103 H 95 10/17/20 08:26 10/17/20 09:20 10/17/20 09:20 10/17/20 09:20 10/17/20 09:20 Oxygen Flow Rate (L/min) 4 Oxygen Delivery Method Nasal Cannula Weight: 220 lb 14.451 oz Body Mass Index (BMI) 40.4 Intake and Output for Last 24 Hours 10/15/20 10/16/20 10/17/20 23:59 23:59 23:59 Intake Total 3455 / 4005 3093.75 / 3093.75 900 / 900 Output Total 1600 / 1600 1200 / 1200 Balance 3455 / 4005 1493.75 / 1493.75 -300 / -300 Abdomen: Bowel Sounds Present, Soft, Non Tender Microbiology Past 72 Hours 10/14/20 13:00 Mucosa - Nose SARS-CoV-2 Antigen (Rapid) - Final Laboratory Results 10/16/20 13:51: POC Glucose 256 H 10/16/20 16:59: POC Glucose 304 H 10/16/20 21:25: POC Glucose 363 H 10/16/20 23:08: POC Glucose 322 H 10/17/20 05:24: Sodium 138, Potassium 4.2, Chloride 104, Carbon Dioxide 31.0, Anion Gap 3 L, BUN 14, Creatinine 0.65, Estim Creat Clear Calc 83.71, Est GFR (MDRD) Af Amer 126, Est GFR (MDRD) Non-Af 104, BUN/Creatinine Ratio 21.7 H, Glucose 294 H, Calcium 8.4 L, Total Bilirubin 0.20, AST 10 L, ALT 16, Alkaline Phosphatase 99, Total Protein 6.0 L, Albumin 2.7 L, Globulin 3.3, Albumin/Globulin Ratio 0.8 L 10/17/20 06:10: POC Glucose 281 H Current Medications Acetaminophen (Acetaminophen 325 Mg Tablet) 650 mg PO Q6H PRN PRN PRN Reason: Pain Score 1-10/Temp > 100.7 F Al Hydroxide/Mg Hydroxide (Mag Hydrox/Al Hydrox/Simeth 30 Ml Udc) 30 ml PO Q6H PRN PRN PRN Reason: Gastric Burning Albuterol Sulfate (Albuterol 2.5 Mg/3 Ml Vial.Neb.) 2.5 mg INHALATION Q2H PRN PRN PRN Reason: Dyspnea, wheezing Last Admin: 10/16/20 00:18 Dose: 2.5 mg Documented by: Albuterol/Ipratropium (Ipratropium/Albuterol Sulfate 3 Ml Ampul.Neb) 3 ml INHALATION Q6HWA.RT [facility] Last Admin: 10/17/20 06:38 Dose: 3 ml Documented by: Amlodipine Besylate (Amlodipine 10 Mg Tablet) 10 mg PO DAILY [facility] Last Admin: 10/16/20 13:52 Dose: 10 mg Documented by: Atorvastatin Calcium (Atorvastatin Calcium 10 Mg Tablet) 10 mg PO QHS [facility] Last Admin: 10/16/20 21:41 Dose: 10 mg Documented by: Enoxaparin Sodium (Enoxaparin 40 Mg/0.4 Ml Syringe) 40 mg SC DAILY [facility] Last Admin: 10/15/20 08:52 Dose: 40 mg Documented by: Gabapentin (Gabapentin 600 Mg Tablet) 1,200 mg PO BID [facility] Last Admin: 10/16/20 21:41 Dose: 1,200 mg Documented by: Guaifenesin (Guaifenesin 1,200 Mg Tablet) 1,200 mg PO BID [facility] Last Admin: 10/16/20 21:41 Dose: 1,200 mg Documented by: Hydralazine HCl (Hydralazine 20 Mg/Ml Vial) 10 mg IV Q4H PRN PRN PRN Reason: SBP > 160 Hydromorphone HCl (Hydromorphone 0.5 Mg/0.5 Ml Syringe) 0.5 mg IV Q4H PRN PRN PRN Reason: Pain Score 6-10 Last Admin: 10/16/20 09:43 Dose: 0.5 mg Documented by: Insulin Glargine (Insulin Glargine 100 Units/Ml Pen) 40 units SC DAILY [facility] Insulin Glargine (Insulin Glargine 100 Units/Ml Pen) 15 units SC QHS [facility] Last Admin: 10/16/20 21:28 Dose: 15 u Documented by: Insulin Human Lispro (Insulin Lispro 100 Unit/Ml Insuln.Pen) 0 unit SC Q6 [facility]; Protocol Last Admin: 10/17/20 06:11 Dose: 6 u Documented by: Lisinopril (Lisinopril 40 Mg Tablet) 40 mg PO DAILY [facility] Last Admin: 10/16/20 13:54 Dose: 40 mg Documented by: Nicotine (Nicotine 7 Mg Patch) 7 mg TRANSDERM. DAILY [facility] Last Admin: 10/16/20 13:52 Dose: 7 mg Documented by: Nutritional Formula (Lactose Free) (Ensure Clear 120 Ml Liquid) 120 ml PO 4X/DAY [facility] Last Admin: 10/16/20 21:29 Dose: Not Given Documented by: Ondansetron HCl (Ondansetron 4 Mg/2 Ml Vial) 4 mg IV Q8H PRN PRN PRN Reason: NAUSEA/VOMITING Last Admin: 10/15/20 00:07 Dose: 4 mg Documented by: Oxycodone HCl (Oxycodone 5 Mg Tablet) 10 mg PO Q4H PRN PRN PRN Reason: Pain Score 6-10 Last Admin: 10/17/20 02:43 Dose: 10 mg Documented by: Oxycodone HCl (Oxycodone 5 Mg Tablet) 5 mg PO Q4H PRN PRN PRN Reason: Pain Score 4-5 Pantoprazole Sodium (Pantoprazole Sodium 40 Mg Tablet) 40 mg PO BID [facility] Last Admin: 10/16/20 21:45 Dose: 40 mg Documented by: Prochlorperazine Edisylate (Prochlorperazine 10 Mg/2 Ml Vial) 5 mg IV Q4H PRN PRN PRN Reason: Breakthrough nausea/vomiting Psyllium Hydrophilic Mucilloid (Psyllium 1 Packet) 1 packet PO DAILY PRN PRN PRN Reason: Constipation Senna/Docusate Sodium (Senna/Docusate Sodium 1 Tablet) 2 tablet PO BID PRN PRN PRN Reason: Constipation Sodium Chloride (0.9% Saline Lock 10 Ml Syringe) 10 - 40 ml IV UD PRN PRN Reason: SALINE FLUSH Last Admin: 10/17/20 08:04 Dose: 10 ml Documented by: Temazepam (Temazepam 15 Mg Capsule) 15 mg PO QHS PRN PRN PRN Reason: INSOMNIA Throat Lozenges (Benzocaine/Menthol 1 Lozenge) 1 lozenge MUCOUS MEM Q2H PRN PRN PRN Reason: SORE THROAT Medical Necessity - Tobacco Use Smoking Status: Current every day smoker Tobacco Use: Cigarettes Assessment/Plan All Active Problems (Last Reviewed 10/15/20 @ 11:[address] Darrius Omer MD) Acute on chronic respiratory failure with hypoxia and hypercapnia (Acute) COPD exacerbation (Acute) Pneumonia (Acute) Acute pancreatitis (Acute) Epigastric pain (Acute) Acute respiratory failure with hypoxia (Acute) Elevated troponin (Acute) Acute respiratory failure with hypoxia and hypercapnia (Acute) History of tubal ligation (Resolved) History of section (Resolved) COPD with acute exacerbation (Acute) Hypertensive urgency (Ruled-out) Otitis media (Ruled-out) Tobacco abuse (Resolved) I am following this patient in conjunction with Dr. Omer Ready for discharge Follow-up as needed Inpatient E&M: 83182 Subs Hosp L1
[2020-10-17] MEDS: Gabapentin 600 MG Tablet 1200 MG PO (10:06)
[2020-10-17] MEDS: Pantoprazole Sodium 40 MG Tablet PO (10:07)
[2020-10-17] MEDS: Lisinopril 40 MG Tablet PO (10:07)
[2020-10-17] MEDS: guaiFENesin 1,200 MG Tablet 1200 MG PO (10:07)
[2020-10-17] MEDS: amLODIPine 10 MG Tablet PO (10:13)
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
--- NOTE | 2020-10-17 11:30 | PCM.DC ---
- Discharge Diagnoses Current Active Problems: Current Active and Chronic Problems (Last Reviewed 10/15/20 @ 11:[address] Darrius Omer MD) HLD (hyperlipidemia) (Chronic) Acute pancreatitis (Acute) Epigastric pain (Acute) Morbid obesity with BMI of 40.0-44.9, adult (Chronic) Benign essential hypertension (Chronic) Chronic back pain (Chronic) COPD (Chronic) Asthma (Chronic) GERD (gastroesophageal reflux disease) (Chronic) Obesity (BMI 30-39.9) (Chronic) Diabetes mellitus, type II (Chronic) You will use the following diet at home:: Calorie/Carbohydrate Controlled (specify 1200, 1400, etc) - Carb controlled diet, Cardiac Your food should be the consistency of: Regular Discharge Activity: May Not Drive Weight Bearing Status: Weight bearing as tolerated Call your doctor if you observe: Fever of 101 or Higher, Numbness or Tingling, Change in Color, Inability to urinate, Inability to have a bowel movement, Using more than one pad per hour, Shortness of breath, Dizziness, Fainting spells, Swelling in the ankles, Chest pain, Prolonged hiccoughing, Increased palpitations (irregular heartbeat), Calf discomfort, Uncontrolled pain Allergies/Adverse Reactions: Allergies aspirin Allergy (Verified 10/14/20 21:09) Anaphylaxis cyclobenzaprine HCl [From Flexeril] Allergy (Verified 10/14/20 21:09) Rash levofloxacin [From Levaquin] Allergy (Verified 10/14/20 21:09) Rash naproxen [From Naprosyn] Allergy (Verified 10/14/20 21:09) Anaphylaxis bupropion HCl [From Wellbutrin] Adverse Reaction (Verified 10/14/20 21:09) nightmares NIGHTMARES doxycycline Adverse Reaction (Verified 10/14/20 21:09) Diarrhea Medications to take at Discharge Amlodipine [Norvasc] 10 mg PO DAILY 08/13/15 Hydrochlorothiazide [Hctz] 25 mg PO DAILY 10/26/17 Ipratropium/Albuterol Sulfate [Duoneb] 3 ml INHALATION 4X/DAY 03/10/18 Albuterol Aerosols [Ventolin Aerosols] 2.5 mg INHALATION Q4H PRN PRN 03/13/19 Albuterol Sulfate [Ventolin Hfa] 90 mcg INHALATION Q4H PRN 03/13/19 Oxygen, Home [Home Oxygen] 4 - 6 lpm NASAL PRN PRN #0 04/06/19 budesonide-formoterol HFA 160 mcg-4.5 mcg/actuation aerosol inhaler 2 puff INHALATION BID #1 ea 04/06/19 Insulin Glargine,Hum.rec.anlog [Basaglar Kwikpen U-100] 30 unit SQ DAILY #1 insuln.pen 11/03/19 Dicyclomine HCl [Bentyl] 20 mg PO TIDAC #20 cap 10/12/20 Atorvastatin Calcium 10 mg PO DAILY 10/14/20 Gabapentin 1,200 mg PO BID 10/14/20 Guaifenesin [Mucinex] 1,200 mg PO BID #14 tab 10/17/20 Lisinopril [Zestril] 40 mg PO DAILY #0 10/17/20 Nicotine [Nicoderm Cq] 7 mg TRANSDERM. DAILY #30 patch 10/17/20 Pantoprazole Sodium [Protonix] 40 mg PO BID #60 tab 10/17/20 The following prescriptions were given: Guaifenesin [Mucinex] 1,200 mg PO BID #14 tab Transmission Status: Received by [facility] Nicotine [Nicoderm Cq] 7 mg TRANSDERM. DAILY #30 patch Transmission Status: Received by [facility] Pantoprazole Sodium [Protonix] 40 mg PO BID #60 tab Transmission Status: Received by [facility] Primary Care Physician: Rita Melton MD [Primary Care Provider] - Please follow up with your Primary Care Physician in: In 2 weeks Test Results: Test results from this visit will be discussed in further detail at your follow-up appointment, if applicable. Please Follow Up With: Darrius Omer MD When: In 4 weeks Please Follow Up With: Herminio Dupont MD When: For COPD. As scheduled
[2020-10-17 11:40] LABS: Bedside Glucose 231 mg/dL (70-110)
--- NOTE | 2020-10-17 12:00 | DS.PCM_ITS ---
Discharge Date and Diagnosis - Problem List Patient Problems: Active and Suspected Problems (Last Reviewed 10/15/20 @ 11:[address] Darrius Omer MD) Acute pancreatitis (Acute) Epigastric pain (Acute) CARSON (obstructive sleep apnea) (Suspected) Date of Admission: 10/14/20 Date of Discharge: 10/17/20 - Primary Discharge Diagnosis Acute Problems: Active Problems (Last Reviewed 10/15/20 @ 11:[address] Darrius Omer MD) Acute pancreatitis (Acute) Epigastric pain (Acute) Suspected Problems: Suspected Problems (Last Reviewed 10/15/20 @ 11:[address] Darrius Omer MD) CARSON (obstructive sleep apnea) (Suspected) - Secondary Discharge Diagnosis Chronic Problems: Chronic Problems (Last Reviewed 10/15/20 @ 11:[address] Darrius Omer MD) HLD (hyperlipidemia) (Chronic) Morbid obesity with BMI of 40.0-44.9, adult (Chronic) Hypertension (Chronic) COPD exacerbation (Chronic) Tobacco abuse (Chronic) Hypersomnia (Chronic) Benign essential hypertension (Chronic) Herniated thoracic disc without myelopathy (Chronic) Chronic back pain (Chronic) COPD (Chronic) Asthma (Chronic) GERD (gastroesophageal reflux disease) (Chronic) Obesity (BMI 30-39.9) (Chronic) Diabetes mellitus, type II (Chronic) Hospital Course and Treatment Imaging Results: 10/17/20 05:55 MRCP Abdomen without Contrast [MRI] AM (NON MEDS) Operations: None Summary of Care Provided: This is a 49-year-old female with history of COPD/asthma overlap syndrome, chronic smoking, chronic hypoxic respiratory failure on 2 L of home oxygen 16/06 came to ED with nausea, vomiting and right-sided upper abdominal pain for 2 to 3 days. 1. Right upper quadrant/abdominal pain possible acute pancreatitis/acute gastritis/PUD: Patient is being admitted on [facility] floor. On IV fluid which is decreased to 75 mill per hour. IV PPI twice daily. Serum lipase 290 which improved to 174 so not elevated to account for acute pancreatitis. Patient had right upper quadrant sonogram on 10/12/2020 reported no acute finding but increased liver echogenicity suggestive of fatty infiltration. CBD 4 mm. GB wall 2 mm, normal. No pericholecystic fluid. No gallstones. Negative Parks sign. Visualized pancreas was unremarkable with normal echogenicity of pancreas. Minimally dilated pancreatic duct 3 mm. Patient further had CT abdomen with IV contrast which reported mild pancreatic head enlargement with peripancreatic edema suggestive of acute pancreatitis. Patient had EGD and shows mild gastritis in the prepyloric area. On PPI. There was no EGD or HIDA scan in [facility] record. Patient still complained of pain yesterday and in the morning today, she had MRCP which reported normal. Patient is being discharged on PPI, Protonix 40 mg p.o. twice daily for 2 weeks and then once daily. 2. COPD with chronic hypoxic respiratory failure. Mild COPD exacerbation: Patient is actively wheezing, cough, short of breath with increased expiratory time. Scheduled DuoNeb with as needed albuterol, incentive spirometry and pep and Mucinex. 3. Diabetes mellitus type II: A1c 11.0. Glucose returned to baseline after discontinuation of Solu-Medrol 4. Morbid Obesity: Weight loss and lifestyle changes encouraged, may consider nutrition consultation for education and teaching. 5. Hypertension: Continue home regimen including Norvasc, lisinopril, temporarily holding hydrochlorothiazide given presentation with hydration, resume once appropriate, PRN hydralazine. 6. Hyperlipidemia: Continue home statin regimen. Fasting profile LDL 84, HDL 31. Total cholesterol 140. 7. GERD: As mentioned above 8. DVT prophylaxis: SCDs, Lovenox. Discharge medication reconciliation done. Discharge follow-up instructions completed. Discharge process discussed with the patient and all questions were answered to patient's satisfaction. Total time spent, exact 35 minutes on discharge meds reconciliation, examination, coordination of care with nurses and ancillary staff, review of imaging and blood test and discussion with the patient on follow-up instructions Clinical Impression(s) from Imaging Studies Abdomen/Pelvis CT 10/14/20 20:55 IMPRESSION: Mild enlargement of the pancreatic head with mild peripancreatic edema consistent with acute pancreatitis. Unremarkable liver and spleen with a nondistended gallbladder. No acute renal findings or changes. Stable simple right renal cysts. No acute bowel related findings. Negative for obstruction, perforation or inflammatory bowel changes. Stable fibroid uterus. Status post tubal ligation with an IUD in the endometrial space. Otherwise negative for pelvic mass or free fluid of the pelvis. MRCP 10/17/20 05:55 IMPRESSION: Normal MR Cholangiopancreatography (MRCP). Patient Problems: Active and Suspected Problems (Last Reviewed 10/15/20 @ 11:[address] Darrius Omer MD) Acute pancreatitis (Acute) Epigastric pain (Acute) CARSON (obstructive sleep apnea) (Suspected) Objective: Seen and examined. Patient heart rate and blood pressure is controlled. On baseline 4 L of home oxygen. Pulse ox 95% Patient required Ativan 1 mg IV for MRCP as she is claustrophobic. Physical exam General: Alert, Oriented x3, Cooperative HEENT: Atraumatic, PERRLA, EOMI, Normocephalic. Her eyes looks normal. Conjunctivitis probably allergic resolved Oral: No Gingival or Mucosal Lesions/ Ulcerations Neck: Supple, No JVD, Negative Carotid Bruits Lungs: Air entry diminished in bilateral lung bases. No crepitation/rhonchi/wheezing Cardiovascular: Regular rate, Regular Rhythm, Normal S1, Normal S2, No murmurs Abdomen: Bowel Sounds Present, Soft, Non Tender, Non-Distended. No rebound tenderness : No renal angle tenderness. No suprapubic tenderness. Extremities: No edema, Capillary Refill Less than 3 Seconds Skin: No rashes, No breakdown Musculoskeletal: No Tenderness to Palpation of Joints or Extremities Neurological: Cranial nerves II-XII grossly intact, Deep Tendon Reflexes 2+/4 and Symmetrical, Neuro grossly intact Psych/Mental Status: Normal Affect, Appropriate. - Physical Exam Vitals/I&O's: Vital Signs Temp Pulse Resp BP Pulse Ox 97.6 F L 82 13 129/103 H 95 10/17/20 08:26 10/17/20 09:20 10/17/20 09:20 10/17/20 09:20 10/17/20 09:20 Oxygen Flow Rate (L/min) 4 Oxygen Delivery Method Nasal Cannula Weight: 220 lb 14.451 oz Body Mass Index (BMI) 40.4 Intake and Output for Last 24 Hours 10/15/20 10/16/20 10/17/20 23:59 23:59 23:59 Intake Total 3455 / 4005 3093.75 / 3093.75 900 / 900 Output Total 1600 / 1600 1200 / 1200 Balance 3455 / 4005 1493.75 / 1493.75 -300 / -300 Microbiology Past 72 Hours 10/14/20 13:00 Mucosa - Nose SARS-CoV-2 Antigen (Rapid) - Final Laboratory Results 10/16/20 13:51: POC Glucose 256 H 10/16/20 16:59: POC Glucose 304 H 10/16/20 21:25: POC Glucose 363 H 10/16/20 23:08: POC Glucose 322 H 10/17/20 05:24: Sodium 138, Potassium 4.2, Chloride 104, Carbon Dioxide 31.0, Anion Gap 3 L, BUN 14, Creatinine 0.65, Estim Creat Clear Calc 83.71, Est GFR (MDRD) Af Amer 126, Est GFR (MDRD) Non-Af 104, BUN/Creatinine Ratio 21.7 H, Glucose 294 H, Calcium 8.4 L, Total Bilirubin 0.20, AST 10 L, ALT 16, Alkaline Phosphatase 99, Total Protein 6.0 L, Albumin 2.7 L, Globulin 3.3, Albumin/Globu angelina Ratio 0.8 L 10/17/20 06:10: POC Glucose 281 H 10/17/20 11:31: POC Glucose 231 H Current Medications Acetaminophen (Acetaminophen 325 Mg Tablet) 650 mg PO Q6H PRN PRN PRN Reason: Pain Score 1-10/Temp > 100.7 F Al Hydroxide/Mg Hydroxide (Mag Hydrox/Al Hydrox/Simeth 30 Ml Udc) 30 ml PO Q6H PRN PRN PRN Reason: Gastric Burning Albuterol Sulfate (Albuterol 2.5 Mg/3 Ml Vial.Neb.) 2.5 mg INHALATION Q2H PRN PRN PRN Reason: Dyspnea, wheezing Last Admin: 10/16/20 00:18 Dose: 2.5 mg Documented by: Albuterol/Ipratropium (Ipratropium/Albuterol Sulfate 3 Ml Ampul.Neb) 3 ml INHALATION Q6HWA.RT [facility] Last Admin: 10/17/20 06:38 Dose: 3 ml Documented by: Amlodipine Besylate (Amlodipine 10 Mg Tablet) 10 mg PO DAILY [facility] Last Admin: 10/17/20 10:13 Dose: 10 mg Documented by: Atorvastatin Calcium (Atorvastatin Calcium 10 Mg Tablet) 10 mg PO QHS [facility] Last Admin: 10/16/20 21:41 Dose: 10 mg Documented by: Enoxaparin Sodium (Enoxaparin 40 Mg/0.4 Ml Syringe) 40 mg SC DAILY [facility] Last Admin: 10/15/20 08:52 Dose: 40 mg Documented by: Gabapentin (Gabapentin 600 Mg Tablet) 1,200 mg PO BID [facility] Last Admin: 10/17/20 10:06 Dose: 1,200 mg Documented by: Guaifenesin (Guaifenesin 1,200 Mg Tablet) 1,200 mg PO BID [facility] Last Admin: 10/17/20 10:07 Dose: 1,200 mg Documented by: Hydralazine HCl (Hydralazine 20 Mg/Ml Vial) 10 mg IV Q4H PRN PRN PRN Reason: SBP > 160 Hydromorphone HCl (Hydromorphone 0.5 Mg/0.5 Ml Syringe) 0.5 mg IV Q4H PRN PRN PRN Reason: Pain Score 6-10 Last Admin: 10/16/20 09:43 Dose: 0.5 mg Documented by: Insulin Glargine (Insulin Glargine 100 Units/Ml Pen) 40 units SC DAILY [facility] Last Admin: 10/17/20 10:05 Dose: 40 u Documented by: Insulin Glargine (Insulin Glargine 100 Units/Ml Pen) 15 units SC QHS [facility] Last Admin: 10/16/20 21:28 Dose: 15 u Documented by: Insulin Human Lispro (Insulin Lispro 100 Unit/Ml Insuln.Pen) 0 unit SC Q6 [facility]; Protocol Last Admin: 10/17/20 11:32 Dose: 4 u Documented by: Lisinopril (Lisinopril 40 Mg Tablet) 40 mg PO DAILY [facility] Last Admin: 10/17/20 10:07 Dose: 40 mg Documented by: Nicotine (Nicotine 7 Mg Patch) 7 mg TRANSDERM. DAILY [facility] Last Admin: 10/17/20 10:07 Dose: 7 mg Documented by: Nutritional Formula (Lactose Free) (Ensure Clear 120 Ml Liquid) 120 ml PO 4X/DAY [facility] Last Admin: 10/17/20 10:07 Dose: Not Given Documented by: Ondansetron HCl (Ondansetron 4 Mg/2 Ml Vial) 4 mg IV Q8H PRN PRN PRN Reason: NAUSEA/VOMITING Last Admin: 10/15/20 00:07 Dose: 4 mg Documented by: Oxycodone HCl (Oxycodone 5 Mg Tablet) 10 mg PO Q4H PRN PRN PRN Reason: Pain Score 6-10 Last Admin: 10/17/20 10:05 Dose: 10 mg Documented by: Oxycodone HCl (Oxycodone 5 Mg Tablet) 5 mg PO Q4H PRN PRN PRN Reason: Pain Score 4-5 Pantoprazole Sodium (Pantoprazole Sodium 40 Mg Tablet) 40 mg PO BID [facility] Last Admin: 10/17/20 10:07 Dose: 40 mg Documented by: Prochlorperazine Edisylate (Prochlorperazine 10 Mg/2 Ml Vial) 5 mg IV Q4H PRN PRN PRN Reason: Breakthrough nausea/vomiting Psyllium Hydrophilic Mucilloid (Psyllium 1 Packet) 1 packet PO DAILY PRN PRN PRN Reason: Constipation Senna/Docusate Sodium (Senna/Docusate Sodium 1 Tablet) 2 tablet PO BID PRN PRN PRN Reason: Constipation Sodium Chloride (0.9% Saline Lock 10 Ml Syringe) 10 - 40 ml IV UD PRN PRN Reason: SALINE FLUSH Last Admin: 10/17/20 08:04 Dose: 10 ml Documented by: Temazepam (Temazepam 15 Mg Capsule) 15 mg PO QHS PRN PRN PRN Reason: INSOMNIA Throat Lozenges (Benzocaine/Menthol 1 Lozenge) 1 lozenge MUCOUS MEM Q2H PRN PRN PRN Reason: SORE THROAT Home Medications: Medications to take at Discharge Amlodipine [Norvasc] 10 mg PO DAILY 08/13/15 Hydrochlorothiazide [Hctz] 25 mg PO DAILY 10/26/17 Ipratropium/Albuterol Sulfate [Duoneb] 3 ml INHALATION 4X/DAY 03/10/18 Albuterol Aerosols [Ventolin Aerosols] 2.5 mg INHALATION Q4H PRN PRN 03/13/19 Albuterol Sulfate [Ventolin Hfa] 90 mcg INHALATION Q4H PRN 03/13/19 Oxygen, Home [Home Oxygen] 4 - 6 lpm NASAL PRN PRN #0 04/06/19 budesonide-formoterol HFA 160 mcg-4.5 mcg/actuation aerosol inhaler 2 puff INHALATION BID #1 ea 04/06/19 Insulin Glargine,Hum.rec.anlog [Basaglar Kwikpen U-100] 30 unit SQ DAILY #1 insuln.pen 11/03/19 Dicyclomine HCl [Bentyl] 20 mg PO TIDAC #20 cap 10/12/20 Atorvastatin Calcium 10 mg PO DAILY 10/14/20 Gabapentin 1,200 mg PO BID 10/14/20 Guaifenesin [Mucinex] 1,200 mg PO BID #14 tab 10/17/20 Lisinopril [Zestril] 40 mg PO DAILY #0 10/17/20 Nicotine [Nicoderm Cq] 7 mg TRANSDERM. DAILY #30 patch 10/17/20 Pantoprazole Sodium [Protonix] 40 mg PO BID #60 tab 10/17/20 Following Prescriptions Were Given to Patient: Guaifenesin [Mucinex] 1,200 mg PO BID #14 tab Transmission Status: Received by [facility] Nicotine [Nicoderm Cq] 7 mg TRANSDERM. DAILY #30 patch Transmission Status: Received by [facility] Pantoprazole Sodium [Protonix] 40 mg PO BID #60 tab Transmission Status: Received by [facility] Primary Care Physician: Rita Melton MD [Primary Care Provider] - Medical Necessity - Tobacco Use Smoking Status: Current every day smoker Tobacco Use: Cigarettes Meaningful Use Info Meaningful Use Diagnoses (Choose all that apply): None applicable Inpatient E&M: 98769 Disch Hosp
[2020-10-17 12:01] LABS: Hep B Surface Antibodies Reactive (.)
== END 2020-10-17 14:14 | disposition home or self-care (01) | DRG 282 ==
LOC: ED 20:54 → MS3 22:56
PROVIDERS: Anesthesiology; Surgery; Admitting Provider Family Medicine; Emergency Provider Emergency Medicine; PCP Internal Medicine; Referring Provider Family Medicine; Visit Provider Internal Medicine
PROC: 0DJ08ZZ Inspection of Upper Intestinal Tract, Via Natural or Artificial Opening Endoscopic (ICD-10-PCS; CPT 43235; principal; 2020-10-16 11:10)
DX: K85.90 Acute pancreatitis without necrosis or infection, unspecified (principal); G47.33 Obstructive sleep apnea (adult) (pediatric); E78.5 Hyperlipidemia, unspecified; E66.01 Morbid (severe) obesity due to excess calories; I10 Essential (primary) hypertension; K21.9 Gastro-esophageal reflux disease without esophagitis; Z68.41 Body mass index [BMI] 40.0-44.9, adult; J44.1 Chronic obstructive pulmonary disease with (acute) exacerbation; E11.65 Type 2 diabetes mellitus with hyperglycemia; F41.9 Anxiety disorder, unspecified; F32.9 Major depressive disorder, single episode, unspecified; F17.210 Nicotine dependence, cigarettes, uncomplicated; Z99.81 Dependence on supplemental oxygen; J96.11 Chronic respiratory failure with hypoxia; J96.12 Chronic respiratory failure with hypercapnia; K29.70 Gastritis, unspecified, without bleeding
CPT/HCPCS: 36415; 74177; 74181; 76705; 80048; 80053; 80061; 80076; 81002; 82150; 82962; 83036; 83690; 84703; 85025; 86704; 86705; 86706; 86708; 86709; 86803; 87340; 87426; 88305; 88342; 93005; 94640; 94667; 94668; 96361; 96374; 96375; 96376; 97802; 99251; 99284; 99285; J7030; Q9967; A4216; G0463; J2405

== ENCOUNTER 2021-05-23 01:47 | Inpatient (IN) | payer MEDICAID, SELFPAY ==
[2020-10-16 08:30] VITALS: BMI 40.4
[2021-05-23] VITALS (43 sets, daily range): BP systolic 108–182; BP diastolic 61–122; PULSE 81–103; RESP 14–35; TEMP 36.6–38.3; O2SAT 90–100; BMI 39.9; BMI 39.1
--- NOTE | 2021-05-23 02:01 | RAD_ITS ---
HISTORY: sob EXAMINATION/TECHNIQUE: XR Chest 1 View: COMPARISON: July 11, 2020 FINDINGS: LINES/DEVICES: Endotracheal tube 2.6 cm above the marcela. Enteric tube extends subdiaphragmatic off the inferior study margin. LUNGS: Increased linear atelectasis in the retrocardiac left lower lung. Mild diffuse peribronchial thickening. No effusion. No pneumothorax. MEDIASTINUM: Mild cardiomegaly. Aortic atherosclersosis. MUSCULOSKELETAL: No acute osseous finding. RAD/Chest 1 View (Portable) IMPRESSION: Linear atelectasis in the retrocardiac left lower lung. Peribronchial thickening as can be seen with bronchitis/ bronchiolitis. No evidence of consolidative pneumonia. Cardiomegaly without florid pulmonary edema at 0412 Reported and signed by: Fan Alatorre MD Electronically Signed: Fan Alatorre MD at 4:10 EDT Tel , Service support ,
--- NOTE | 2021-05-23 02:02 | EKG12_ITS ---
Test Reason : DYSRHYTHMIA Blood Pressure : / mmHG Vent. Rate : 102 BPM Atrial Rate : 102 BPM P-R Int : 138 ms QRS Dur : 076 ms QT Int : 324 ms P-R-T Axes : 062 123 058 degrees QTc Int : 422 ms Somatic/Motion Artifact Sinus tachycardia Right axis deviation Low voltage QRS Cannot rule out Anteroseptal infarct , age undetermined Abnormal ECG Confirmed by CHIKIS MARTINEZ, SUSANA ([id number]), news video editor DOV LONGO ([id number]) on 05/24/2021 10:52:12 AM Referred By: MAT Confirmed By:SUSANA DIOP MD
--- NOTE | 2021-05-23 02:04 | EDS_ITS ---
HPI History of Present Illness Chief Complaint: Shortness of Breath Narrative Narrative: Patient presents with shortness of breath. EMS reports the patient had shortness of breath and was hypoxic at home. She is unable to give a history due to her short of breath. She did state in single words that she has been short of breath for the last couple days. Unable to give a history due to these symptoms. Per previous visit she has a history of asthma and COPD exacerbation with respiratory failure. [facility] Medical History (Updated 05/23/21 @ 05:[address] Sinan Alvarez MD) Asthma Benign essential hypertension Chronic back pain COPD COPD with acute exacerbation Diabetes mellitus, type II GERD (gastroesophageal reflux disease) Herniated thoracic disc without myelopathy Hypertensive urgency Obesity (BMI 30-39.9) Otitis media Home Medications amlodipine 10 mg PO DAILY 08/13/15 [History Last Taken 10/13/20] hydrochlorothiazide 25 mg PO DAILY 10/26/17 [History Last Taken 10/13/20 0800] ipratropium-albuterol 3 ml INHALATION 4X/DAY 03/10/18 [History Last Taken 10/14/20 06:00] albuterol sulfate 2.5 mg INHALATION Q4H PRN PRN 03/13/19 [History Last Taken 10/14/20 06:00] albuterol sulfate [Ventolin HFA] 90 mcg INHALATION Q4H PRN 03/13/19 [History Last Taken 07/11/20] Oxygen, Home [Home Oxygen] 4 - 6 lpm NASAL PRN PRN #0 04/06/19 [Rx Last Taken 07/11/20] budesonide-formoterol HFA 160 mcg-4.5 mcg/actuation aerosol inhaler 2 puff INHALATION BID #1 ea 04/06/19 [Rx Last Taken 10/14/20 06:00] insulin glargine 30 unit SQ DAILY #1 insuln.pen 11/03/19 [Rx Last Taken 07/11/20] dicyclomine 20 mg PO TIDAC #20 cap 10/12/20 [Rx Last Taken Unknown] atorvastatin 10 mg PO DAILY 10/14/20 [History Last Taken 10/13/20] gabapentin 1,200 mg PO BID 10/14/20 [History Last Taken 10/14/20 1200] guaifenesin 1,200 mg PO BID #14 tab 10/17/20 [Rx Last Taken Unknown] lisinopril 40 mg PO DAILY #0 10/17/20 [Rx Last Taken 10/13/20 08:00] nicotine 7 mg TRANSDERM. DAILY #30 patch 10/17/20 [Rx Last Taken Unknown] pantoprazole 40 mg PO BID #60 tab 10/17/20 [Rx Last Taken Unknown] Allergy/AdvReac Type Severity Reaction Status Date / Time aspirin Allergy Anaphylaxis Verified 05/23/21 01:53 cyclobenzaprine HCl Allergy Rash Verified 05/23/21 01:53 [From Flexeril] levofloxacin [From Levaquin] Allergy Rash Verified 05/23/21 01:53 naproxen [From Naprosyn] Allergy Anaphylaxis Verified 05/23/21 01:53 bupropion HCl AdvReac nightmares Verified 05/23/21 01:53 [From Wellbutrin] doxycycline AdvReac Diarrhea Verified 05/23/21 01:53 Family History Mother Breast cancer Cancer Skin Father COPD (chronic obstructive pulmonary disease) Hypertension Heart disease Cancer Skin Surgical History History of section History of tubal ligation Social History household members: significant other Smoking Status: Current every day smoker tobacco type: cigarettes Tobacco: How many years used: 24 how long ago did patient quit smokin, 1ppd second hand exposure: Yes alcohol intake: never substance use type: does not use ROS ROS ED Review of Systems ROS Unobtainable: due to mental condition EXAM Physical Exam Narrative Exam Narrative: Vital signs reviewed General: Well-nourished well-developed. In severe shortness of breath Head: Normocephalic atraumatic Eyes: Pupils equal round and reactive to light extraocular movements intact ENT: TMs clear no hemotympanum no trauma Neck: Nontender full range of motion Cardiovascular: Regular tachycardia with normal rhythm no murmurs normal S1-S2 Respiratory: Severe shortness of breath. Diffuse wheezes throughout all lung crawford with decreased breath sounds bilateral. Single word answers. Abdomen: Soft nontender nondistended normal bowel sounds no masses Back: Nontender no CVA tenderness Extremities: Nontender active range of motion ?4 extremities no trauma Skin: Normal color no trauma Neuro alert oriented cranial nerves II through XII intact normal strength sensation reflexes Const Vital Signs: 05/23/21 01:48 05/23/21 01:53 05/23/21 02:32 Temperature 97.9 F Temperature Source Temporal Pulse Rate 103 H 98 Respiratory Rate 35 H 34 H Respiratory Effort Short of Breath Labored Short of Breath Labored Accessory Muscle Use Respiratory Depth Shallow Respiratory Pattern Tachypnea Blood Pressure 169/101 H Blood Pressure Mean 123 Pulse Ox 99 95 Oxygen Delivery Method Non-Rebreather Nasal Cannula Nasal Cannula Oxygen Flow Rate (L/min) 10 6 5 Fraction of Inspired Oxygen (FIO2) 05/23/21 02:47 05/23/21 02:57 05/23/21 03:02 Temperature Temperature Source Pulse Rate 85 Respiratory Rate 14 Respiratory Effort Respiratory Depth Respiratory Pattern Normal Blood Pressure 159/100 H Blood Pressure Mean 119 Pulse Ox 100 Oxygen Delivery Method Oxygen Flow Rate (L/min) Fraction of Inspired Oxygen (FIO2) 100 50 MDM MDM MDM Narrative Medical decision making narrative: Immediately placed on oxygen. Started BiPAP immediately. Given DuoNeb breathing treatment followed by albuterol breathing treatment nebulizers x2. Given Solu-Medrol IV. Lab work and chest x-ray EKG obtained. Chest x-ray by my interpretation shows chronic changes without acute infiltrate. Positive cardiomegaly. EKG obtained shows sinus tachycardia at 102. Positive motion artifact. No acute STEMI. Lab work obtained shows high- sensitivity troponin greater than 80. This is her first level. Repeat will be done in the intensive care unit. The patient did not tolerate BiPAP. Due to the patient's respiratory failure likely secondary COPD exacerbation I elected to intubate the patient. Patient was given etomidate and succinylcholine. Easily intubated with a 7.5 ET tube. Chest x-ray shows the tube in good placement. Patient was given propofol drip and vecuronium afterwards. Ventilator gas shows a patient 7.36. PCO2 68. Lab work shows a mild leukocytosis. Bicarbonate is significant elevated secondary to compensation from her chronic CO2 retention secondary to COPD. Given a dose of Rocephin antibiotic after speaking with the hospitalist. Will be admitted to the intensive care unit. Covid testing negative. Lab Data Labs: Laboratory Results - last 24 hr 05/23/21 05/23/2105/23/21 02:25 02:25 02:25 WBC 12.6 H RBC 6.10 H Hgb 17.5 H Hct 59.1 H MCV 96.9 MCH 28.7 MCHC 29.6 L RDW Std Deviation 47.6 H RDW Coeff of Marcy 13.4 Plt Count 208 MPV 11.8 Immature Gran % (Auto) 1.200 H Neut % (Auto) 79.4 H Lymph % (Auto) 6.6 L [place] % (Auto) 12.1 H Eos % (Auto) 0.1 Baso % (Auto) 0.6 Absolute Neuts (auto) 10.0 H Absolute Lymphs (auto) 0.83 Nucleated RBC % 0.2 Diff Path Review May foll Sodium Cancelled Potassium Cancelled Chloride Cancelled Carbon Dioxide Cancelled Anion Gap Cancelled BUN Cancelled Creatinine Cancelled Estim Creat Clear Calc Cancelled Est GFR (MDRD) Af Amer Cancelled Est GFR (MDRD) Non-Af Cancelled BUN/Creatinine Ratio Cancelled Glucose Cancelled Lactic Acid Cancelled Calcium Cancelled Troponin I High Sens Cancelled Radiography Diagnostic Testing: Radiology Impression Chest X-Ray 05/23/21 02:01 IMPRESSION: Linear atelectasis in the retrocardiac left lower lung. Peribronchial thickening as can be seen with bronchitis/ bronchiolitis. No evidence of consolidative pneumonia. Cardiomegaly without florid pulmonary edema at 0412 Reported and signed by: Fan Alatorre MD Electronically Signed: Fan Alatorre MD at 4:10 EDT Tel , Service support , Critical Care Time Critical Care Time: Yes Critical care time (excluding procedures): 30-74 minutes Discharge Plan Triage Chief Complaint: Shortness of Breath ED Provider: Sinan Alvarez Dx/Rx/DC Orders Clinical Impression: Respiratory failure, Elevated troponin, Acute exacerbation of chronic obstructive pulmonary disease Primary Care Provider: Rita Melton Disposition Disposition: Acute Care [facility]
[2021-05-23] MEDS: Albuterol 2.5 MG/3 ML VIAL.NEB. INHALATION ×3 (02:32)
[2021-05-23] MEDS: Ipratropium/Albuterol Sulfate 3 ML AMPUL.NEB INHALATION ×5 (02:32→18:48)
[2021-05-23 02:36] LABS: Absolute Lymphocyte Count 0.83 X10^3/uL (0.83-4.51); Basophil# 0.07 X10^3/uL; Basophil% 0.6 % (0-1); Eosinophil# 0.01 X10^3/uL; Eosinophils% 0.1 % (0-5); Hemoglobin 17.5 g/dL (12.0-15.0); Lymphocyte # 0.83 X10^3/ul (0.83-4.51); Lymphocyte % 6.6 % (19-41); Mean Corp Hgb Conc 29.6 g/dL (32-36); Mean Corpuscular Hgb 28.7 pg (27.0-32.0); Mean Corpuscular Volume 96.9 fL (81-99); Mean Platelet Vol. 11.8 fl (6.2-12.0); Monocyte# 1.52 X10^3/uL; Monocyte% 12.1 % (0-10); NRBC Flagged by Analyzer 0.2 % (0-5); Neutrophil # 10.02 X10^3/uL (2.7-7.7); Neutrophil % 79.4 % (47-70); POSITIVE DIFFERENTIAL YES; Platelet Count 208 K/mm3 (150-450); RBC Distribution Width CV 13.4 % (11.6-14.6); RBC Distribution Width SD 47.6 fl (35.1-43.9); White Blood Count 12.6 K/mm3 (4.4-11.0)
[2021-05-23 02:40] LABS: Differential Indicated SCAN CRITERIA MET; Hematocrit 59.1 % (37-47)
--- NOTE | 2021-05-23 02:51 | ED.RN ---
pt is confused and will not permit bipap or oxygen to placed on.pt keeps batting every oxgyen apparatus away. dr rushing made aware.pt moved in to room 2 for intubation.
[2021-05-23] MEDS: Etomidate 20 MG/10 ML Vial IV (02:55)
[2021-05-23] MEDS: Succinylcholine Chloride 200 MG/10 ML Vial 150 MG IV (02:55)
[2021-05-23] MEDS: MethylPREDNISolone 125 MG/2 ML Vial IV (03:03)
[2021-05-23] MEDS: Propofol 10MG/Ml 1,000 MG/100 ML Bottle 6.3 MG CONT INF (03:16)
--- NOTE | 2021-05-23 03:34 | PCM.HP.STD ---
HPI - General General Date of Admission: 05/23/21 Date of Service: 05/23/21 Chief Complaint: Dyspnea, wheezing, cough. HPI Narrative The patient is a 50 y/o F w/ PMHx: Asthma/COPD with chronic hypoxic respiratory failure (4-6L NC), Diabetes mellitus type II, Morbid Obesity, GERD, HTN, Chronic back pain, Former Tobacco use who presents to the [facility] ED on 05/23/21 with history of ongoing progressively worsening dyspnea, wheezing, mildly productive cough without fever or chills over the last 72 hours eventually prompting ED evaluation. Per EMS patient was hypoxic and unable to speak in full sentences. In the ED patient was intermittently answering questions appropriately and did occasionally appear confused with significantly ongoing increased work of breathing accessory muscle usage, leaned over. Work-up in the ED included T 97.9, heart rate 103, BP 116/101, respiratory rate 35, initially 99% on 10 L, nonrebreather with attempted BiPAP placement however did not tolerate, CBC with WC 12.6, hemoglobin 17.5, platelet 208 with left shift, negative COVID antigen, Bld Cx x 2 pending per ED, pending BMP, LA, trop upon evaluation of patient, CXR w/ no acute cardiopulmonary findings w/ ETT s/p intubation, pending BMP and trop upon admission. In the ED patient ministered DuoNeb therapy, Solu-Medrol and initiated on propofol drip following intubation. [facility] Medical History Asthma Benign essential hypertension Chronic back pain COPD COPD with acute exacerbation Diabetes mellitus, type II GERD (gastroesophageal reflux disease) Herniated thoracic disc without myelopathy Hypertensive urgency Obesity (BMI 30-39.9) Otitis media Home Medications amlodipine 10 mg PO DAILY 08/13/15 [History Last Taken 10/13/20] hydrochlorothiazide 25 mg PO DAILY 10/26/17 [History Last Taken 10/13/20 0800] ipratropium-albuterol 3 ml INHALATION 4X/DAY 03/10/18 [History Last Taken 10/14/20 06:00] albuterol sulfate 2.5 mg INHALATION Q4H PRN PRN 03/13/19 [History Last Taken 10/14/20 06:00] albuterol sulfate [Ventolin HFA] 90 mcg INHALATION Q4H PRN 03/13/19 [History Last Taken 07/11/20] Oxygen, Home [Home Oxygen] 4 - 6 lpm NASAL PRN PRN #0 04/06/19 [Rx Last Taken 07/11/20] budesonide-formoterol HFA 160 mcg-4.5 mcg/actuation aerosol inhaler 2 puff INHALATION BID #1 ea 04/06/19 [Rx Last Taken 10/14/20 06:00] insulin glargine 30 unit SQ DAILY #1 insuln.pen 11/03/19 [Rx Last Taken 07/11/20] dicyclomine 20 mg PO TIDAC #20 cap 10/12/20 [Rx Last Taken Unknown] atorvastatin 10 mg PO DAILY 10/14/20 [History Last Taken 10/13/20] gabapentin 1,200 mg PO BID 10/14/20 [History Last Taken 10/14/20 1200] guaifenesin 1,200 mg PO BID #14 tab 10/17/20 [Rx Last Taken Unknown] lisinopril 40 mg PO DAILY #0 10/17/20 [Rx Last Taken 10/13/20 08:00] nicotine 7 mg TRANSDERM. DAILY #30 patch 10/17/20 [Rx Last Taken Unknown] pantoprazole 40 mg PO BID #60 tab 10/17/20 [Rx Last Taken Unknown] Allergy/AdvReac Type Severity Reaction Status Date / Time aspirin Allergy Anaphylaxis Verified 05/23/21 01:53 cyclobenzaprine HCl Allergy Rash Verified 05/23/21 01:53 [From Flexeril] levofloxacin [From Levaquin] Allergy Rash Verified 05/23/21 01:53 naproxen [From Naprosyn] Allergy Anaphylaxis Verified 05/23/21 01:53 bupropion HCl AdvReac nightmares Verified 05/23/21 01:53 [From Wellbutrin] doxycycline AdvReac Diarrhea Verified 05/23/21 01:53 Family History Mother Breast cancer Cancer Skin Father COPD (chronic obstructive pulmonary disease) Hypertension Heart disease Cancer Skin Surgical History History of section History of tubal ligation Social History (Updated 05/23/21 @ 02:[address] Neetu Richey MD) household members: significant other Smoking Status: Current every day smoker tobacco type: cigarettes Tobacco: How many years used: 24 how long ago did patient quit smokin, 1ppd second hand exposure: Yes alcohol intake: never substance use type: does not use ROS ROS Narrative Admission Review of Systems: CONSTITUTIONAL: No weight loss, fever, chills, + weakness or fatigue. HEENT: Eyes: No visual loss, blurred vision, double vision or yellow sclerae. Ears, Nose, Throat: No hearing loss, sneezing, congestion, runny nose or sore throat. SKIN: No rash or itching, lesions, wounds. CARDIOVASCULAR: No chest pain, chest pressure or chest discomfort, palpitations, edema, orthopnea, syncopal events. RESPIRATORY: + shortness of breath, cough with increased sputum, wheezing, No hemoptysis. GASTROINTESTINAL: No anorexia, nausea, vomiting or diarrhea, abdominal pain, melena, BRBPR. GENITOURINARY: No dysuria, frequency, urgency or retention. NEUROLOGICAL: No headache, dizziness, syncope, paralysis, ataxia, numbness or tingling in the extremities, focal weakness, change in bowel or bladder control, seizure. MUSCULOSKELETAL: + muscle, back pain, joint pain or stiffness. HEMATOLOGIC: No anemia, bleeding or bruising. LYMPHATICS: No enlarged nodes. No history of splenectomy. PSYCHIATRIC: + history of depression or anxiety. ENDOCRINOLOGIC: + reports of sweating, cold or heat intolerance. No polyuria or polydipsia. ALLERGIES: + history of asthma, hives, eczema or rhinitis. Vital Signs Vital Signs Vital Signs: 05/23/21 01:48 05/23/21 01:53 05/23/21 02:47 Temperature 97.9 F Temperature Source Temporal Pulse Rate 103 H Respiratory Rate 35 H Respiratory Effort Short of Breath Labored Blood Pressure 169/101 H 159/100 H Blood Pressure Mean 123 119 Pulse Ox 99 Oxygen Delivery Method Non-Rebreather Nasal Cannula Oxygen Flow Rate (L/min) 10 6 Weight Weight: 232 lb 9.403 oz Body Mass Index (BMI) 39.9 Physical Exam Narrative Physical Examination: General: Awake, intermittently alert, oriented to self and some recent events but very encephalopathic, obvious increased work of breathing, accessory muscle usage, pursed lip breathing, evident respiratory distress. Skin: Normal color, normal turgor, no icterus, no cyanosis. HEENT: AT/NC, EOM appear intact but difficult given presentation acutely, PERRLA, dry MM, no carotid bruits or JVD noted. Lungs: Diffusely diminished, greater bases, end expiratory wheezing softly noted diffusely, increased work of breathing, accessory muscle usage, evident respiratory distress. Heart: Tachycardic with regular rhythm; no gallop, rub audible. Abdomen: Soft, morbidly obese, NTTP, ND, mildly hyperactive BS, no HSM. Extremities: No cyanosis, clubbing, or edema. Neurological: Awake, intermittently alert, oriented to self and some recent events but very encephalopathic, obvious increased work of breathing, accessory muscle usage, pursed lip breathing, evident respiratory distress, cognitive function not baseline intact; pupils equally reactive to light and accommodation, cranial nerves grossly normal, moving all 4 extremities, no focal deficits, strength severely global decrease secondary to acute presentation. Psychiatric: Affect appears fatigued, ill-appearing, no acute evidence of depressive or anxiety feelings. Results Lab / Micro Data Result Diagrams: 05/23/21 02:25 05/23/21 02:25 Labs: Laboratory Results - last 24 hr 05/23/21 05/23/21 05/23/21 02:25 02:25 02:25 WBC 12.6 H RBC 6.10 H Hgb 17.5 H Hct 59.1 H MCV 96.9 MCH 28.7 MCHC 29.6 L RDW Std Deviation 47.6 H RDW Coeff of Marcy 13.4 Plt Count 208 MPV 11.8 Immature Gran % (Auto) 1.200 H Neut % (Auto) 79.4 H Lymph % (Auto) 6.6 L [place] % (Auto) 12.1 H Eos % (Auto) 0.1 Baso % (Auto) 0.6 Absolute Neuts (auto) 10.0 H Absolute Lymphs (auto) 0.83 Nucleated RBC % 0.2 [address] Path Review May foll Sodium Cancelled Potassium Cancelled Chloride Cancelled Carbon Dioxide Cancelled Anion Gap Cancelled BUN Cancelled Creatinine Cancelled Estim Creat Clear Calc Cancelled Est GFR (MDRD) Af Amer Cancelled Est GFR (MDRD) Non-Af Cancelled BUN/Creatinine Ratio Cancelled Glucose Cancelled Lactic Acid Cancelled Calcium Cancelled Troponin I High Sens Cancelled Micro: Microbiology 05/23/21 02:25 SARS-CoV-2 Antigen (Rapid) - Final Mucosa - Nose Assessment & Plan Assessment/Plan (1) Acute on chronic respiratory failure with hypoxia and hypercapnia: (2) COPD exacerbation: PLAN: The patient is a 50 y/o F w/ PMHx: Asthma/COPD with chronic hypoxic respiratory failure (4-6L NC), Diabetes mellitus type II, Morbid Obesity, GERD, HTN, Chronic back pain, Former Tobacco use who presents to the [facility] ED on 05/23/21 with history of ongoing progressively worsening dyspnea, wheezing, mildly productive cough without fever or chills over the last 72 hours eventually prompting ED evaluation. Per EMS patient was hypoxic and unable to speak in full sentences. 1. Acute Encephalopathy secondary to Acute on chronic COPD exacerbation w/ Acute on Chronic Hypoxic Respiratory Failure: Will admit to the ICU, failed ED attempts with BIPAP as patient unable to tolerate, continued intubated and sedated status, continue ICU physician consultation, continue ATC duonebs, PRN albuterol, IV methylprednisolone, HOB, IS parameters, IV Rocephin given allergy history noted with pending sputum cultures, respiratory viral panel, procalcitonin. 2. Hypertension: Continue home regimen including lisinopril, amlodipine, PRN hydralazine. 3. Hyperlipidemia: Continue home statin regimen. 4. Diabetes mellitus type II with peripheral neuropathy: Hold oral home regimen, continue home insulin regimen, ADA diet, accu checks w/ ISS, continue home gabapentin regimen. 5. Morbid Obesity: Weight loss and lifestyle changes encouraged, nutrition consulted. 6. CARSON: Unable to tolerate BiPAP in the ED as noted. 7. GERD: Continue patient on PPI. 8. DVT prophylaxis: SCDs, Lovenox. Charges/Coding Visit Charges Inpatient E&M: 35249 Init Hosp L3
[2021-05-23] MEDS: Vecuronium Bromide 10 MG/10 ML Vial IV (03:35)
[2021-05-23 04:05] LABS: Allen Test Positive; Base Excess 14 mmol/L (-2 to +2); Bicarbonate 38.9 mmol/L (22-26); Blood Gas Specimen Type ART; FI02 40; Mode AC; O2 Delivery Device Adult Vent; PEEP 5; PO2 65 mmHG (75-100); RR 14; SITE L Radial; SO2 91 % (95-99); Total Carbon Dioxide 41 mmol/L; Vt 500; pCO2 68.9 mmHg (35-45); pH 7.36 (7.35-7.45)
[2021-05-23] MEDS: Ceftriaxone 1 GM/50 ML BAG IV ×2 (04:34→21:06)
[2021-05-23] MEDS: Midazolam 2 MG/2 ML Syringe IV (04:45)
[2021-05-23 04:59] LABS: Anion Gap 3 (5-15); BUN 27 mg/dL (7-18); BUN/Creat Ratio 49.4 RATIO (10-20); Calcium,Total 8.7 mg/dL (8.5-10.1); Chloride 94 mmol/L (98-107); Creatinine, Serum 0.55 mg/dL (0.55-1.02); EST Glomerular Filtration Rate 125 mL/min (>60); Est Glom Filt Rate - Afr Amer 152 mL/min (>60); Estimated Creatinine Clearance 106.84 ml/min; Glucose 301 mg/dL (74-106); Potassium 4.9 mmol/L (3.5-5.1); Sodium Level 138 mmol/L (136-145); Troponin-I HS 89.9 pg/mL (3.0-53.7)
[2021-05-23 05:00] LABS: Lactic Acid 1.5 mmol/L (0.4-1.9)
[2021-05-23 05:07] LABS: Procalcitonin 0.19 ng/mL (0.00-0.09)
[2021-05-23] MEDS: Propofol 10MG/Ml 1,000 MG/100 ML Bottle 22.2 MG CONT INF (05:15)
--- NOTE | 2021-05-23 05:45 | EX.PCM.CONCC ---
Assessment & Plan Assessment/Plan (1) Acute on chronic respiratory failure with hypoxia and hypercapnia: PLAN: RECOMMENDATIONS: 1. Continue patient on assist control mode of mechanical ventilation and wean FiO2 to maintain saturations at or above 90%. 2. Continue empiric antimicrobials for now. 3. Continue scheduled bronchodilators and IV steroids. 4. Check lipase, GGT, alcohol level and acetaminophen level. 5. Obtain liver ultrasound. 6. Continue propofol and fentanyl for sedation. Goal to maintain a RASS of -1 to 1. 7. Continue appropriate ICU prophylaxis. IMPRESSIONS: 1. Acute on chronic combined respiratory failure While the patient does have a reported history of both COPD and asthma, she has never completed pulmonary function testing previously. She does have an extensive smoking history, along with a history of medical noncompliance and has poor outpatient follow-up. I am doubtful that based upon the chest imaging studies that the patient has an underlying bacterial pneumonia. However, it would be reasonable to continue empiric antibiotics for 48 hours pending infectious work-up. Continue scheduled bronchodilators and IV steroids. Wean FiO2 and PEEP to maintain oxygen saturations at or above 90%. Okay to start tube feeds today from my perspective. 2. Heart failure with preserved ejection fraction/pulmonary hypertension Continue outpatient cardiac medications. 3. Clinical concern for underlying sleep disordered breathing The patient needs to follow-up with the pulmonary medicine clinic so that a diagnostic polysomnogram can be completed. In the interim, empiric utilization of BIPAP with naps and nightly can be considered once the patient is extubated. 4. Polycythemia Clinical concern for chronic hypoxemia due to outpatient noncompliance with supplemental oxygen. 5. Acute hepatitis The patient has elevated transaminase levels of unclear etiology. Will check lipase, GGT, alcohol level and acetaminophen. Will also obtain liver ultrasound. 6. Continuous tobacco dependency/diabetes mellitus/morbid obesity/history of medical noncompliance/chronic pain syndrome Complicates care, management, recovery and prognosis. Continue home medications as indicated. TIME: 42 minutes of critical care time, independent of procedures, was spent addressing the patient's acute on chronic combined respiratory failure, heart failure with preserved ejection fraction, pulmonary hypertension, polycythemia, acute hepatitis, review of all data and collaboration with the care team. ([id number]) HPI Consult Data Date of Consult: 05/23/21 HPI Narrative Reason for Consultation: Acute on chronic combined respiratory failure HPI Narrative: The patient is a 50-year-old female, with a history as outlined below, who presented to the emergency department on May 23 with worsening dyspnea and hypoxemia. According to EMS documentation, the patient significant other have reported a change in the patient's mentation. Her initial pulse oximetry reading was noted to be 75% on room air. History pertinent to the patient's hospitalization was obtained primarily via chart review, as the patient is currently intubated and there is no family available at the bedside. In 2016, the patient was evaluated in the pulmonary medicine clinic over concerns for COPD, asthma and obstructive sleep apnea. Orders for testing were placed at that time, but the patient never completed any of the test, nor did she follow-up in the clinic. The patient has been hospitalized in the past and treated for acute on chronic combined respiratory failure. She does have an extensive smoking history along with a 4 L/min baseline oxygen requirement. Of note, it should be noted, that the patient has significant adverse behavioral manifestations to the use of corticosteroids. It is always been felt that the patient's underlying anxiety plays a significant role in her reported respiratory symptoms. Upon presentation to the ED, the patient was placed immediately on BiPAP. She was also provided with aerosolized bronchodilators and IV steroids. Unfortunately, the patient did not tolerate noninvasive positive pressure ventilatory support and eventually required emergent intubation in the ED. The patient has been afebrile and hemodynamically stable. Laboratory evaluation revealed an elevated white blood cell count to 13,000. Hemoglobin was elevated to 17.5 g/dL. Arterial blood gas postintubation revealed a pH of 7.36 with a corresponding PCO2 of 69 and PO2 of 65. Chemistry profile was notable for a bicarbonate of 41 and normal creatinine. High-sensitivity troponin was elevated. Procalcitonin was noted to be 0.19. Chest x-ray demonstrated no acute cardiopulmonary process. The patient received supplemental IV fluid hydration and was placed on antimicrobials. She was subsequently admitted to the medical intensive care unit for further management. Surface echocardiogram from February 2019 revealed normal LV size with moderate to severe concentric LVH and an ejection fraction of 65%. Diastolic dysfunction was noted. Right ventricular systolic pressure was estimated to be 45 mmHg. [facility] Medical History (Updated 05/23/21 @ 05:[address] Sinan Alvarez MD) Asthma Benign essential hypertension Chronic back pain COPD COPD with acute exacerbation Diabetes mellitus, type II GERD (gastroesophageal reflux disease) Herniated thoracic disc without myelopathy Hypertensive urgency Obesity (BMI 30-39.9) Otitis media Home Medications amlodipine 10 mg PO DAILY 08/13/15 [History Last Taken 10/13/20] hydrochlorothiazide 25 mg PO DAILY 10/26/17 [History Last Taken 10/13/20 0800] ipratropium-albuterol 3 ml INHALATION 4X/DAY 03/10/18 [History Last Taken 10/14/20 06:00] albuterol sulfate 2.5 mg INHALATION Q4H PRN PRN 03/13/19 [History Last Taken 10/14/20 06:00] albuterol sulfate [Ventolin HFA] 90 mcg INHALATION Q4H PRN 03/13/19 [History Last Taken 07/11/20] Oxygen, Home [Home Oxygen] 4 - 6 lpm NASAL PRN PRN #0 04/06/19 [Rx Last Taken 07/11/20] budesonide-formoterol HFA 160 mcg-4.5 mcg/actuation aerosol inhaler 2 puff INHALATION BID #1 ea 04/06/19 [Rx Last Taken 10/14/20 06:00] insulin glargine 30 unit SQ DAILY #1 insuln.pen 11/03/19 [Rx Last Taken 07/11/20] dicyclomine 20 mg PO TIDAC #20 cap 10/12/20 [Rx Last Taken Unknown] atorvastatin 10 mg PO DAILY 10/14/20 [History Last Taken 10/13/20] gabapentin 1,200 mg PO BID 10/14/20 [History Last Taken 10/14/20 1200] guaifenesin 1,200 mg PO BID #14 tab 10/17/20 [Rx Last Taken Unknown] lisinopril 40 mg PO DAILY #0 10/17/20 [Rx Last Taken 10/13/20 08:00] nicotine 7 mg TRANSDERM. DAILY #30 patch 10/17/20 [Rx Last Taken Unknown] pantoprazole 40 mg PO BID #60 tab 10/17/20 [Rx Last Taken Unknown] Allergy/AdvReac Type Severity Reaction Status Date / Time aspirin Allergy Anaphylaxis Verified 05/23/21 01:53 cyclobenzaprine HCl Allergy Rash Verified 05/23/21 01:53 [From Flexeril] levofloxacin [From Levaquin] Allergy Rash Verified 05/23/21 01:53 naproxen [From Naprosyn] Allergy Anaphylaxis Verified 05/23/21 01:53 bupropion HCl AdvReac nightmares Verified 05/23/21 01:53 [From Wellbutrin] doxycycline AdvReac Diarrhea Verified 05/23/21 01:53 Family History Mother Breast cancer Cancer Skin Father COPD (chronic obstructive pulmonary disease) Hypertension Heart disease Cancer Skin Surgical History History of section History of tubal ligation Social History household members: significant other Smoking Status: Current every day smoker tobacco type: cigarettes Tobacco: How many years used: 24 how long ago did patient quit smokin, 1ppd second hand exposure: Yes alcohol intake: never substance use type: does not use ROS Review of Systems ROS Unobtainable: due to endotracheal tube and due to mental status Physical Exam Const no apparent distress General Appearance: intubated and patient mechanically ventilated Nutritional Appearance: obese HEENT normocephalic and head/scalp atraumatic Mouth: endotracheal tube in place and OG tube in place Eyes PERRL, EOMs intact bilaterally and conjunctivae normal Neck supple General: trachea midline Resp Resp Narrative: Coarse mechanical breath sounds bilaterally Auscultation: diminished lung sounds Cardio regular rate, regular rhythm and no murmurs GI normal to inspection, nondistended, normoactive bowel sounds Extremity no clubbing, cyanosis or edema Skin no rashes or lesions noted Neuro Sensorium / Orientation: sedated on vent Lab / Micro Data Result Diagrams: 05/23/21 05:45 05/23/21 05:45 Labs: Laboratory Results - last 24 hr 05/23/21 05/23/21 05/23/21 02:25 02:25 02:25 WBC 12.6 H RBC 6.10 H Hgb 17.5 H Hct 59.1 H MCV 96.9 MCH 28.7 MCHC 29.6 L RDW Std Deviation 47.6 H RDW Coeff of Marcy 13.4 Plt Count 208 MPV 11.8 Immature Gran % (Auto) 1.200 H Neut % (Auto) 79.4 H Lymph % (Auto) 6.6 L [place] % (Auto) 12.1 H Eos % (Auto) 0.1 Baso % (Auto) 0.6 Absolute Neuts (auto) 10.0 H Absolute Lymphs (auto) 0.83 Nucleated RBC % 0.2 Diff Path Review May foll Sodium Cancelled Potassium Cancelled Chloride Cancelled Carbon Dioxide Cancelled Anion Gap Cancelled BUN Cancelled Creatinine Cancelled Estim Creat Clear Calc Cancelled Est GFR (MDRD) Af Amer Cancelled Est GFR (MDRD) Non-Af Cancelled BUN/Creatinine Ratio Cancelled Glucose Cancelled Lactic Acid Cancelled Calcium Cancelled Troponin I High Sens Cancelled Procalcitonin 05/23/21 05/23/21 05/23/21 03:50 04:17 04:17 WBC RBC Hgb Hct MCV MCH MCHC RDW Std Deviation RDW Coeff of Marcy Plt Count MPV Immature Gran % (Auto) Neut % (Auto) Lymph % (Auto) [place] % (Auto) Eos % (Auto) Baso % (Auto) Absolute Neuts (auto) Absolute Lymphs (auto) Nucleated RBC % Diff Path Review Sodium Cancelled Potassium Cancelled Chloride Cancelled Carbon Dioxide Cancelled Anion Gap Cancelled BUN Cancelled Creatinine Cancelled Estim Creat Clear Calc Cancelled Est GFR (MDRD) Af Amer Cancelled Est GFR (MDRD) Non-Af Cancelled BUN/Creatinine Ratio Cancelled Glucose Cancelled Lactic Acid 1.5 Calcium Cancelled Troponin I High Sens Cancelled Procalcitonin 0.19 H 05/23/21 04:17 WBC RBC Hgb Hct MCV MCH MCHC RDW Std Deviation RDW Coeff of Marcy Plt Count MPV Immature Gran % (Auto) Neut % (Auto) Lymph % (Auto) [place] % (Auto) Eos % (Auto) Baso % (Auto) Absolute Neuts (auto) Absolute Lymphs (auto) Nucleated RBC % Diff Path Review Sodium 138 Potassium 4.9 Chloride 94 L Carbon Dioxide 41.0 H Anion Gap 3 L BUN 27 H Creatinine 0.55 Estim Creat Clear Calc 106.84 Est GFR (MDRD) Af Amer 152 Est GFR (MDRD) Non-Af 125 BUN/Creatinine Ratio 49.4 H Glucose 301 H Lactic Acid Calcium 8.7 Troponin I High Sens 89.9 H* Procalcitonin Micro: Microbiology 05/23/21 03:30 Legionella Antigen - Final Urine Catheter - Balderrama Streptococcus pneumoniae Antigen (M - Final 05/23/21 02:25 SARS-CoV-2 Antigen (Rapid) - Final Mucosa - Nose ABG Data ABG results: ABG 05/23/21 03:58 Specimen Type ART Sample Site L Radial pH 7.36 Bicarbonate Actual 38.9 H Total CO2 41 Base Excess 14 H O2 Saturation 91 L O2 % 40 ABG pCO2 68.9 H* ABG pO2 65 L Baudilio Test Positive Respiration Rate 14 O2 Delivery Device Adult Vent Vent Mode AC Tidal Volume 500 POC PEEP 5 Crit Call To/Read Back Yes Blood Gas Notified Whom [facility] Impression Chest X-Ray 05/23/21 02:01 IMPRESSION: Linear atelectasis in the retrocardiac left lower lung. Peribronchial thickening as can be seen with bronchitis/ bronchiolitis. No evidence of consolidative pneumonia. Cardiomegaly without florid pulmonary edema at 0412 Reported and signed by: Fan Alatorre MD Electronically Signed: Fan Alatorre MD at 4:10 EDT Tel , Service support , Charges/Coding Procedures Hospitalists Procedures: 19873 Critial Care 1st Hr
[2021-05-23] MEDS: 0.9% Normal Saline 1,000 ML 100 ML IV ×2 (05:48→15:55)
[2021-05-23 06:07] LABS: Absolute Lymphocyte Count 0.33 X10^3/uL (0.83-4.51); Absolute Neutrophil Count 11.3 X10^3/uL (2.0-7.7); Basophil# 0.04 X10^3/uL; Basophil% 0.3 % (0-1); Differential Indicated SCAN CRITERIA MET; Hemoglobin 16.5 g/dL (12.0-15.0); Lymphocyte # 0.33 X10^3/ul (0.83-4.51); Lymphocyte % 2.7 % (19-41); Mean Corpuscular Hgb 28.5 pg (27.0-32.0); Mean Platelet Vol. 11.6 fl (6.2-12.0); Monocyte# 0.51 X10^3/uL; Monocyte% 4.1 % (0-10); NRBC Flagged by Analyzer 0.2 % (0-5); Neutrophil # 11.34 X10^3/uL (2.7-7.7); Neutrophil % 92.2 % (47-70); POSITIVE DIFFERENTIAL YES; Platelet Count 171 K/mm3 (150-450); RBC Distribution Width CV 13.2 % (11.6-14.6); RBC Distribution Width SD 46.5 fl (35.1-43.9); Red Blood Count 5.79 M/mm3 (4.2-5.4); White Blood Count 12.3 K/mm3 (4.4-11.0)
[2021-05-23] MEDS: Insulin Lispro 100 UNIT/ML INSULN.PEN SC ×3 (06:12→17:05)
[2021-05-23 06:30] LABS: ALB/GLOB Ratio 0.9 RATIO (0.9-2.4); AST(SGOT) 446 U/L (15-37); Alanine Aminotransfer ALT/SGPT 1476 U/L (13-56); Albumin, Serum 2.8 g/dL (3.2-5.0); Alkaline Phosphatase 220 U/L (45-117); Anion Gap 3 (5-15); BUN 26 mg/dL (7-18); BUN/Creat Ratio 48.5 RATIO (10-20); Calcium,Total 8.7 mg/dL (8.5-10.1); Chloride 95 mmol/L (98-107); Creatinine, Serum 0.54 mg/dL (0.55-1.02); EST Glomerular Filtration Rate 128 mL/min (>60); Est Glom Filt Rate - Afr Amer 155 mL/min (>60); Estimated Creatinine Clearance 108.82 ml/min; Globulin 3.1 g/dL (2.2-4.2); Glucose 296 mg/dL (74-106); Potassium 4.7 mmol/L (3.5-5.1); Protein, Total 5.9 g/dL (6.4-8.2); Sodium Level 138 mmol/L (136-145)
--- NOTE | 2021-05-23 07:36 | US_ITS ---
STUDY: ABDOMINAL ULTRASOUND - RIGHT UPPER QUADRANT REASON FOR VISIT: Female, 50 years old. Transaminitis TECHNIQUE: Ultrasound evaluation of the right upper quadrant was performed with real-time and static tobar-scale imaging. TECHNICAL QUALITY: Limited by patient condition COMPARISON: CT dated 10/14/20 FINDINGS: Liver: The liver measures 19.4 cm. There is increased echogenicity consistent with fatty infiltration. The bile ducts are within normal limits. There is hepatic color flow. The direction of portal flow is hepatopetal. There is no demonstrated mass lesion. Gallbladder: Normal distended gallbladder. The gallbladder wall measures 1 mm. There is a negative sonographic Parks''s sign. There is no pericholecystic fluid. There are no gallstones. Common Bile Duct (C.B.D.): The common bile duct measures 4 mm. Pancreas: Normal size of the head, body and tail of the pancreas. There is normal echogenicity of the pancreas. There is no demonstrated pancreatic mass or cyst. Right Kidney: Normal size of the right kidney. The right kidney measures 12.2 cm. Normal renal cortex. There is a 2.0 x 1.9 cm cyst in the midportion of the right kidney which is stable when compared with the prior CT. There is no right hydronephrosis. US/Liver IMPRESSION: Fatty liver. No focal hepatic lesions. Normal sonographic appearance of the pancreas and gallbladder. Stable simple cyst in the right kidney. No hydronephrosis. Electronically Signed: Kwan Sahu MD at 14:42 EDT Tel , Service support ,
[2021-05-23] MEDS: Propofol 10MG/Ml 1,000 MG/100 ML Bottle 31.2 MG CONT INF ×2 (07:54→10:55)
[2021-05-23 07:55] LABS: GGTP 229 U/L (5-55); Lipase 35 U/L (73-393)
--- NOTE | 2021-05-23 09:10 | CASEMGMT ---
RN HOANG NOTE: Participated in ICU multi-disciplinary rounds. Pt is intubated. Only contact # listed on demographics is significant other, Adrian. RN HOANG initial assessment deferred at this time. Betina BSN RN CM
[2021-05-23] MEDS: Enoxaparin 40 MG/0.4 ML Syringe SC (09:19)
[2021-05-23] MEDS: Chlorhexidine 15 ML PO ×2 (09:19→21:07)
[2021-05-23] MEDS: Nystatin Powder 15gm Bottle 1 APPLIC TOPICAL ×2 (09:20→21:06)
[2021-05-23] MEDS: Gabapentin 600 MG Tablet 1200 MG GT ×2 (09:20→21:06)
[2021-05-23] MEDS: amLODIPine 10 MG Tablet GT (09:21)
[2021-05-23] MEDS: Lisinopril 40 MG Tablet GT (09:21)
[2021-05-23] MEDS: hydroCHLOROthiazide 25 MG Tablet GT (09:22)
[2021-05-23 09:24] LABS: Acetaminophen (Tylenol) Level < 2.0 ug/mL (10.0-30.0); Alcohol, Blood (Medical)-Serum < 3.0 mg/dL
[2021-05-23 09:41] LABS: Bedside Glucose 267 mg/dL (70-110)
[2021-05-23 09:45] LABS: Bedside Glucose 252 mg/dL (70-110)
--- NOTE | 2021-05-23 09:59 | EX.NTREPO ---
Medical Nutrition Therapy - History Nutrition Services has been consulted to:: Manage enteral nutrition Current diet/nutrition support order:: NPO - Anthropometric Measurements Height:: 5 ft 4.17 in Weight:: 104 kg Body Mass Index (BMI):: 39.1 - Relevant Labs Relevant Labs:: WBC 12.3 K/mm3 (4.4-11.0) H 05/23/21 05:45 RBC 5.79 M/mm3 (4.2-5.4) H 05/23/21 05:45 Hgb 16.5 g/dL (12.0-15.0) H 05/23/21 05:45 Hct 55.0 % (37-47) H 05/23/21 05:45 MCHC 30.0 g/dL (32-36) L 05/23/21 05:45 RDW Std Deviation 46.5 fl (35.1-43.9) H 05/23/21 05:45 Immature Gran % (Auto) 1.200 % (0.0-0.9) H 05/23/21 02:25 Neut % (Auto) 92.2 % (47-70) H 05/23/21 05:45 Lymph % (Auto) 2.7 % (19-41) L 05/23/21 05:45 [place] % (Auto) 12.1 % (0-10) H 05/23/21 02:25 Absolute Neuts (auto) 11.3 X10^3/uL (2.0-7.7) H 05/23/21 05:45 Absolute Lymphs (auto) 0.33 X10^3/uL (0.83-4.51) L 05/23/21 05:45 Chloride 95 mmol/L (98-107) L 05/23/21 05:45 Carbon Dioxide 40.0 mmol/L (21.0-32.0) H 05/23/21 05:45 Anion Gap 3 (5-15) L 05/23/21 05:45 BUN 26 mg/dL (7-18) H 05/23/21 05:45 Creatinine 0.54 mg/dL (0.55-1.02) L 05/23/21 05:45 BUN/Creatinine Ratio 48.5 RATIO (10-20) H 05/23/21 05:45 Glucose 296 mg/dL (74-106) H 05/23/21 05:45 GGT 229 U/L (5-55) H 05/23/21 05:45 AST 446 U/L (15-37) H 05/23/21 05:45 ALT 1476 U/L (13-56) H 05/23/21 05:45 Alkaline Phosphatase 220 U/L (45-117) H 05/23/21 05:45 Troponin I High Sens 89.9 pg/mL (3.0-53.7) H* 05/23/21 04:17 Total Protein 5.9 g/dL (6.4-8.2) L 05/23/21 05:45 Albumin 2.8 g/dL (3.2-5.0) L 05/23/21 05:45 Lipase 35 U/L (73-393) L 05/23/21 05:45 Procalcitonin 0.19 ng/mL (0.00-0.09) H 05/23/21 04:17 - Assessment Food and Nutrient Intake: Pt currently intubated. Unable to answer nutrition screen questions upon admission. Per EMR, wt was 220.9# on 10/14/20. CBW 229.3# suggesting wt gain. OGT in place. Per rounds, okay to start enteral nutrition support this date. - Nutrition Diagnosis: Intake Problem Inadequate Oral Intake Intake Problem - Etiology: r/t resp. failure, mechanical intubation Intake Problem - Signs/Symptoms: as evidenced by no PO intake since admission Status: Active Problem - Protein Calorie Malnutrition Evidence of Malnutrition Exists: No - Nutrition Intervention Nutrition Prescription: 7359-7434 calories/day (PSU 2003B equation= 1779.86 calories/day). 108-135 (2.0-2.5 g/kg IBW (54kg)). 1700mL fluid/day (1mL/calorie) - Food / Nutrient Delivery Interventions Summary of nutrition intervention:: Order/adjust enteral nutrition Nutrition support ordered as / adjusted to:: While intubated, recommend Vital AF 1.2 via OGT at goal rate of 65mL/hour w/ 90mL H2O flush every 4 hours to provide 1872 calories, 117 g protein, and 1805mL total fluid/day. Would start at 25mL/hr and increase by 10 mL every 8-12 hours as pt tolerates until goal rate is achieved. - MNT Monitoring Active Nutrition Patient: Yes Nutrition Status: Requires Follow Up in 1-2 Days
[2021-05-23] MEDS: Vital AF 1.2 Cal Liquid 1,000 ML 65 ML GT (10:37)
--- NOTE | 2021-05-23 10:37 | NURSING ---
vital AF started at 25 ml/hr per order
--- NOTE | 2021-05-23 10:46 | NURSING ---
vital AF paused d/t pt needing to be NPO for liver ultrasound scheduled at 1330
[2021-05-23 11:54] LABS: M R Staph aureus DNA By PCR POSITIVE (Negative); Probe Check PASS
[2021-05-23 12:11] LABS: Bedside Glucose 288 mg/dL (70-110)
[2021-05-23 13:38] LABS: Pathologist Review Reviewed
[2021-05-23] MEDS: Propofol 10MG/Ml 1,000 MG/100 ML Bottle 28.1 MG CONT INF (13:54)
--- NOTE | 2021-05-23 15:55 | CASEMGMT ---
DOC BOLTON NOTE: Per RNMakenna, she attempted to contact pt's signif other, Adrian, but call would not go thru. This DOC BOLTON attempted x 2 as well. There is just silence when # is called--no ringing or busy signal received. Noted in pt's chart from a previous admission, that her son, Fan Self, was listed as a contact #, but had requested to be removed from pt's contact list at that time. His #, at that time, was [phone]. DOC BOLTON did attempt to contact Fan at this time, as he is pt's LNOK, to inquire if he agreeable to being on pt's contact list or if he would have pt's parents contact information. The phone rang a few times and then a busy signal was received. Call was attempted x 2 and same thing occurred. Betina CUELLAR RN, CM
[2021-05-23] MEDS: Acetaminophen 650 MG/20 ML UDC GT ×2 (17:05→21:22)
--- NOTE | 2021-05-23 17:15 | NURSING ---
O2 sats maintaining 88%, ETT suctioned, repositioned, increased FiO2 to 35%, respiratory notified.
[2021-05-23] MEDS: Propofol 10MG/Ml 1,000 MG/100 ML Bottle 15.6 MG CONT INF (17:38)
--- NOTE | 2021-05-23 17:39 | PCM.HOSP.N ---
Hospitalist Note Patient was seen and examined today in ICU, she remains sedated and on the ventilator at this time, I talked briefly with pulmonary medicine about her care.Patient will continue on her present medications at this time, pulmonary medicine is participating in her care.
[2021-05-23 17:41] LABS: Bedside Glucose 290 mg/dL (70-110)
--- NOTE | 2021-05-23 17:55 | NURSING ---
O2 sats maintaining 88% after increase in FiO2, increased to 40% FiO2 at this time
[2021-05-23] MEDS: Atorvastatin Calcium 10 MG Tablet GT (21:06)
[2021-05-23] MEDS: Propofol 10MG/Ml 1,000 MG/100 ML Bottle 21.8 MG CONT INF (22:55)
[2021-05-24] VITALS (39 sets, daily range): BP systolic 112–177; BP diastolic 64–133; PULSE 62–88; RESP 14–15; TEMP 37.2–38.1; O2SAT 89–98
[2021-05-24] MEDS: Insulin Lispro 100 UNIT/ML INSULN.PEN SC ×5 (00:12→23:22)
[2021-05-24 00:16] LABS: Bedside Glucose 361 mg/dL (70-110)
[2021-05-24] MEDS: Ipratropium/Albuterol Sulfate 3 ML AMPUL.NEB INHALATION ×5 (02:17→18:57)
[2021-05-24] MEDS: 0.9% Normal Saline 1,000 ML 100 ML IV (02:27)
[2021-05-24] MEDS: Propofol 10MG/Ml 1,000 MG/100 ML Bottle 21.8 MG CONT INF (03:41)
[2021-05-24 04:00] LABS: Absolute Lymphocyte Count 0.62 X10^3/uL (0.83-4.51); Absolute Neutrophil Count 10.9 X10^3/uL (2.0-7.7); Basophil# 0.01 X10^3/uL; Basophil% 0.1 % (0-1); Hematocrit 50.5 % (37-47); Hemoglobin 15.7 g/dL (12.0-15.0); Lymphocyte # 0.62 X10^3/ul (0.83-4.51); Lymphocyte % 4.9 % (19-41); Mean Corp Hgb Conc 31.1 g/dL (32-36); Mean Corpuscular Hgb 28.4 pg (27.0-32.0); Mean Corpuscular Volume 91.3 fL (81-99); Mean Platelet Vol. 11.8 fl (6.2-12.0); Monocyte% 8.7 % (0-10); NRBC Flagged by Analyzer 0 % (0-5); Neutrophil # 10.91 X10^3/uL (2.7-7.7); Neutrophil % 85.9 % (47-70); Platelet Count 212 K/mm3 (150-450); RBC Distribution Width CV 13.5 % (11.6-14.6); RBC Distribution Width SD 45.3 fl (35.1-43.9); Red Blood Count 5.53 M/mm3 (4.2-5.4); White Blood Count 12.7 K/mm3 (4.4-11.0)
[2021-05-24 04:17] LABS: ALB/GLOB Ratio 0.8 RATIO (0.9-2.4); AST(SGOT) 202 U/L (15-37); Alanine Aminotransfer ALT/SGPT 993 U/L (13-56); Albumin, Serum 2.5 g/dL (3.2-5.0); Alkaline Phosphatase 169 U/L (45-117); Anion Gap 4 (5-15); BUN 24 mg/dL (7-18); BUN/Creat Ratio 31.2 RATIO (10-20); Chloride 98 mmol/L (98-107); Creatinine, Serum 0.77 mg/dL (0.55-1.02); EST Glomerular Filtration Rate 85 mL/min (>60); Est Glom Filt Rate - Afr Amer 102 mL/min (>60); Estimated Creatinine Clearance 76.32 ml/min; Glucose 361 mg/dL (74-106); Potassium 3.8 mmol/L (3.5-5.1); Protein, Total 5.5 g/dL (6.4-8.2); Sodium Level 139 mmol/L (136-145)
--- NOTE | 2021-05-24 06:29 | PN.CC_ITS ---
Assessment & Plan Assessment/Plan (1) Acute on chronic respiratory failure with hypoxia and hypercapnia: PLAN: RECOMMENDATIONS: 1. Continue patient on assist control mode of mechanical ventilation and wean FiO2 to maintain saturations at or above 90%. 2. Continue empiric antimicrobials for now. 3. Continue scheduled bronchodilators and IV steroids. 4. Start Precedex today and wean patient from propofol. 5. Discontinue supplemental IV fluids. 6. Continue tube feeds as tolerated. 7. Continue appropriate ICU prophylaxis. IMPRESSIONS: 1. Acute on chronic combined respiratory failure While the patient does have a reported history of both COPD and asthma, she has never completed pulmonary function testing previously. She does have an extensive smoking history, along with a history of medical noncompliance and has poor outpatient follow-up. I am doubtful that based upon the chest imaging studies that the patient has an underlying bacterial pneumonia. However, it would be reasonable to continue empiric antibiotics for 48 hours pending infectious work-up. Continue scheduled bronchodilators and IV steroids. Wean FiO2 and PEEP to maintain oxygen saturations at or above 90%. Continue tube feeds as tolerated. 2. Heart failure with preserved ejection fraction/pulmonary hypertension Continue outpatient cardiac medications. 3. Clinical concern for underlying sleep disordered breathing The patient needs to follow-up with the pulmonary medicine clinic so that a d iagnostic polysomnogram can be completed. In the interim, empiric utilization of BIPAP with naps and nightly can be considered once the patient is extubated. 4. Polycythemia Clinical concern for chronic hypoxemia due to outpatient noncompliance with supplemental oxygen. 5. Acute hepatitis The patient has elevated transaminase levels of unclear etiology. Liver ultrasound revealed fatty infiltration without any other acute abnormality ident ified. Liver function is improving without intervention. 6. Continuous tobacco dependency/diabetes mellitus/morbid obesity/history of medical noncompliance/chronic pain syndrome Complicates care, management, recovery and prognosis. Continue home medications as indicated. TIME: 35 minutes of critical care time, independent of procedures, was spent addressing the patient's acute on chronic combined respiratory failure, heart failure with preserved ejection fraction, pulmonary hypertension, polycythemia, acute hepatitis, review of all data and collaboration with the care team. ([id number]) Subjective Subjective The patient was seen and examined at the bedside this morning. Events from the last 24 hours have been reviewed. The patient is currently afebrile, he modynamically stable and maintaining appropriate oxygen saturations on assist control mode of mechanical ventilation with an FiO2 requirement of 40% and PEEP of 5. The patient is currently documented to be overall net +2.2 L for the hospital admission. She did fail her spontaneous awakening trial this morning. Liver function is improving. The patient remains sedated on both propofol and fentanyl. She has been tolerant of tube feeds. Objective Data Objective Data The patient's most recent lab work, culture data and imaging studies have all been personally reviewed. Surface echocardiogram from February 2019 revealed moderate to severe concentric LVH with an ejection fraction of 65% and evidence of diastolic dysfunction. Right ventricular systolic pressure was estimated to be 45 mmHg. Liver ultrasound revealed fatty infiltration. Rapid coronavirus antigen testing was negative. Strep and urine Legionella antigens were negative. Blood and urine cultures have shown no growth to date. Sputum culture is pending. Vital Signs: Vital Signs Temp Pulse Resp BP Pulse Ox 100 F H 76 14 123/81 H 93 05/24/21 04:00 05/24/21 06:00 05/24/21 06:00 05/24/21 06:00 05/24/21 06:00 Oxygen Flow Rate (L/min) 5 Oxygen Delivery Method Mechanical Ventilator Weight: 233 lb 11.04 oz Body Mass Index (BMI) 39.1 Intake & Output: Intake and Output for Last 24 Hours 05/22/21 05/23/21 05/24/21 23:59 23:59 23:59 Intake Total 2443.75 / 2534.37 1814.34 / 1814.34 Output Total 1530 / 1605 475 / 475 Balance 913.75 / 929.37 1339.34 / 1339.34 Lab / Micro Data Attestation: I reviewed the patient's lab results. Result Diagrams: 05/24/21 03:40 05/24/21 03:40 Labs: Laboratory Results - last 24 hr 05/23/21 05/23/21 05/23/21 02:25 05:45 05:45 WBC RBC Hgb Hct MCV MCH MCHC RDW Std Deviation RDW Coeff of Marcy Plt Count MPV Immature Gran % (Auto) Neut % (Auto) Lymph % (Auto) [place] % (Auto) Eos % (Auto) Baso % (Auto) Absolute Neuts (auto) Absolute Lymphs (auto) Nucleated RBC % Diff Path Review Reviewed Sodium 138 Potassium 4.7 Chloride 95 L Carbon Dioxide 40.0 H Anion Gap 3 L BUN 26 H Creatinine 0.54 L Estim Creat Clear Calc 108.82 Est GFR (MDRD) Af Amer 155 Est GFR (MDRD) Non-Af 128 BUN/Creatinine Ratio 48.5 H Glucose 296 H Calcium 8.7 Total Bilirubin 0.90 GGT 229 H AST 446 H ALT 1476 H Alkaline Phosphatase 220 H Total Protein 5.9 L Albumin 2.8 L Globulin 3.1 Albumin/Globulin Ratio 0.9 Lipase 35 L Acetaminophen Ethyl Alcohol MRSA (PCR) POC Glucose 05/23/21 05/23/21 05/23/21 06:06 07:00 08:10 WBC RBC Hgb Hct MCV MCH MCHC RDW Std Deviation RDW Coeff of Marcy Plt Count MPV Immature Gran % (Auto) Neut % (Auto) Lymph % (Auto) [place] % (Auto) Eos % (Auto) Baso % (Auto) Absolute Neuts (auto) Absolute Lymphs (auto) Nucleated RBC % Diff Path Review Sodium Potassium Chloride Carbon Dioxide Anion Gap BUN Creatinine Estim Creat Clear Calc Est GFR (MDRD) Af Amer Est GFR (MDRD) Non-Af BUN/Creatinine Ratio Glucose Calcium Total Bilirubin GGT AST ALT Alkaline Phosphatase Total Protein Albumin Globulin Albumin/Globulin Ratio Lipase Acetaminophen < 2.0 L Ethyl Alcohol < 3.0 MRSA (PCR) POSITIVE H POC Glucose 267 H 05/23/21 05/23/21 05/23/21 09:27 11:53 17:04 WBC RBC Hgb Hct MCV MCH MCHC RDW Std Deviation RDW Coeff of Marcy Plt Count MPV Immature Gran % (Auto) Neut % (Auto) Lymph % (Auto) [place] % (Auto) Eos % (Auto) Baso % (Auto) Absolute Neuts (auto) Absolute Lymphs (auto) Nucleated RBC % Diff Path Review Sodium Potassium Chloride Carbon Dioxide Anion Gap BUN Creatinine Estim Creat Clear Calc Est GFR (MDRD) Af Amer Est GFR (MDRD) Non-Af BUN/Creatinine Ratio Glucose Calcium Total Bilirubin GGT AST ALT Alkaline Phosphatase Total Protein Albumin Globulin Albumin/Globulin Ratio Lipase Acetaminophen Ethyl Alcohol MRSA (PCR) POC Glucose 252 H 288 H 290 H 05/24/21 05/24/21 05/24/21 00:11 03:40 03:40 WBC 12.7 H RBC 5.53 H Hgb 15.7 H Hct 50.5 H MCV 91.3 MCH 28.4 MCHC 31.1 L RDW Std Deviation 45.3 H RDW Coeff of Marcy 13.5 Plt Count 212 MPV 11.8 Immature Gran % (Auto) 0.400 Neut % (Auto) 85.9 H Lymph % (Auto) 4.9 L [place] % (Auto) 8.7 Eos % (Auto) 0.0 Baso % (Auto) 0.1 Absolute Neuts (auto) 10.9 H Absolute Lymphs (auto) 0.62 L Nucleated RBC % 0 [address] Path Review Sodium 139 Potassium 3.8 Chloride 98 Carbon Dioxide 37.0 H Anion Gap 4 L BUN 24 H Creatinine 0.77 Estim Creat Clear Calc 76.32 Est GFR (MDRD) Af Amer 102 Est GFR (MDRD) Non-Af 85 BUN/Creatinine Ratio 31.2 H Glucose 361 H Calcium 8.0 L Total Bilirubin 0.50 GGT AST 202 H ALT 993 H Alkaline Phosphatase 169 H Total Protein 5.5 L Albumin 2.5 L Globulin 3.0 Albumin/Globulin Ratio 0.8 L Lipase Acetaminophen Ethyl Alcohol MRSA (PCR) POC Glucose 361 H Micro: Microbiology 05/23/21 03:31 Sputum, Induced/Lukens Gram Stain - Final 05/23/21 03:31 Mucosa - Nasopharyngeal Respiratory Panel (PCR) - Final 05/23/21 03:30 Urine Catheter - Balderrama Legionella Antigen - Final 05/23/21 03:30 Urine Catheter - Balderrama Streptococcus pneumoniae Antigen (M - Final 05/23/21 02:25 Mucosa - Nose SARS-CoV-2 Antigen (Rapid) - Final Radiography Diagnostic Testing: Radiology Impression Liver Ultrasound 05/23/21 07:36 IMPRESSION: Fatty liver. No focal hepatic lesions. Normal sonographic appearance of the pancreas and gallbladder. Stable simple cyst in the right kidney. No hydronephrosis. Electronically Signed: Kwan Sahu MD at 14:42 EDT Tel , Service support , Physical Exam Const no apparent distress General Appearance: intubated and patient mechanically ventilated Nutritional Appearance: obese HEENT normocephalic and head/scalp atraumatic Mouth: endotracheal tube in place and OG tube in place Eyes PERRL, EOMs intact bilaterally and conjunctivae normal Neck supple General: trachea midline Resp Resp Narrative: Coarse mechanical breath sounds bilaterally Auscultation: diminished lung sounds Cardio regular rate, regular rhythm and no murmurs GI normal to inspection, nondistended, normoactive bowel sounds Extremity no clubbing, cyanosis or edema Skin no rashes or lesions noted Neuro Sensorium / Orientation: sedated on vent Charges/Coding Procedures Hospitalists Procedures: [id number] Critial Care 1st Hr
[2021-05-24] MEDS: TITRATION PARAMETER CHANGE 1 EACH IV ×3 (07:00→11:22)
[2021-05-24] MEDS: Chlorhexidine 15 ML PO ×2 (08:15→21:05)
--- NOTE | 2021-05-24 09:08 | CASEMGMT ---
SW participated in ICU rounds, reviewed chart to find additional numbers, found the following numbers for pt's parents Wyatt and Nereida Walsh: [phone], , cell for mom is [phone]. SW able to reach pt's mother Nreeida on her cell number: [phone]. SW let her know pt is here in the hospital in the ICU. SW explained to pt's mother that she and pt's father are pt's next of kin, as pt has not completed POA papers in the past to make boyfriend Adrian POA, and pt's son has stated in the past he does not want to be contacted in regard to pt. SW then put pt's mother on the phone w/pt's RN today, Antonia. SW spoke w/Pt's mother again after Antonia spoke w/her. Pt's mother is unaware if pt is with Adrian at this time or not, states it is on and off again, their relationship. Pt's mother states that last year pt came to stay w/them (and they are also caring for grandchild), and pt's mother states that it was not a good situation. She states she and pt's father live in a two bedroom home and Nola was staying on the couch at that time. Pt's mother states that pt's father Rafael is not doing well, support offered. Pt's mother states pt needs to be in an assisted living or usp. SW explained to pt's mother once she is off the ventilator and able to speak w/SW we will explore this with her. Pt's mother states understanding. Pt's mother given ICU number by RN, and SW gave her this SW's number should she have any questions. SW will continue to follow, will add parents to pt's demographics. NATALIE Banuelos
[2021-05-24] MEDS: Propofol 200 MG/20 ML Vial 50 MG IV BOLUS (09:15)
--- NOTE | 2021-05-24 09:15 | NURSING ---
0915 Pt sitting up in bed and attempting to pull out ETT. 4 people needed to hold help keep pt safe. Dr. Myers present in room and gave verbal orders to titrate precedex and fentanyl up to 1.[address] Myers also gave IVP dose of propofol. 0935 Pt responded to IV propofol and is now restful
[2021-05-24] MEDS: hydroCHLOROthiazide 25 MG Tablet GT (12:23)
[2021-05-24] MEDS: Enoxaparin 40 MG/0.4 ML Syringe SC (12:24)
[2021-05-24] MEDS: Nystatin Powder 15gm Bottle 1 APPLIC TOPICAL ×2 (12:24→21:05)
[2021-05-24] MEDS: Gabapentin 600 MG Tablet 1200 MG GT ×2 (12:25→21:07)
[2021-05-24] MEDS: amLODIPine 10 MG Tablet GT (12:25)
[2021-05-24] MEDS: Lisinopril 40 MG Tablet GT (12:26)
[2021-05-24] MEDS: Senna/Docusate Sodium 1 Tablet PO ×2 (12:26→21:07)
[2021-05-24] MEDS: Acetaminophen 650 MG/20 ML UDC GT ×2 (12:55→21:06)
[2021-05-24 13:01] LABS: Bedside Glucose 358 mg/dL (70-110)
[2021-05-24 13:10] LABS: Bedside Glucose 402 mg/dL (70-110)
--- NOTE | 2021-05-24 16:25 | PN.HOSP_ITS ---
Subjective Subjective Patient was seen and examined today in the ICU, she remains sedated on the ventilator at this time. Objective Data Objective Data Vital Signs: Vital Signs Temp Pulse Resp BP Pulse Ox 100 F H 74 14 169/98 H 95 05/24/21 16:00 05/24/21 16:00 05/24/21 16:00 05/24/21 16:00 05/24/21 16:00 Oxygen Flow Rate (L/min) 5 Oxygen Delivery Method Mechanical Ventilator Weight: 106 kg Body Mass Index (BMI) 39.1 Intake & Output: Intake and Output for Last 24 Hours 05/22/21 05/23/21 05/24/21 23:59 23:59 23:59 Intake Total 2443.75 / 2534.37 3511.18 / 3511.18 Output Total 1530 / 1605 1030 / 1030 Balance 913.75 / 929.37 2481.18 / 2481.18 Lab / Micro Data Result Diagrams: 05/24/21 03:40 05/24/21 03:40 Labs: Laboratory Results - last 24 hr 05/23/21 05/24/21 05/24/21 17:04 00:11 03:40 WBC 12.7 H RBC 5.53 H Hgb 15.7 H Hct 50.5 H MCV 91.3 MCH 28.4 MCHC 31.1 L RDW Std Deviation 45.3 H RDW Coeff of Marcy 13.5 Plt Count 212 MPV 11.8 Immature Gran % (Auto) 0.400 Neut % (Auto) 85.9 H Lymph % (Auto) 4.9 L [place] % (Auto) 8.7 Eos % (Auto) 0.0 Baso % (Auto) 0.1 Absolute Neuts (auto) 10.9 H Absolute Lymphs (auto) 0.62 L Nucleated RBC % 0 Sodium Potassium Chloride Carbon Dioxide Anion Gap BUN Creatinine Estim Creat Clear Calc Est GFR (MDRD) Af Amer Est GFR (MDRD) Non-Af BUN/Creatinine Ratio Glucose Calcium Total Bilirubin AST ALT Alkaline Phosphatase Total Protein Albumin Globulin Albumin/Globulin Ratio POC Glucose 290 H 361 H 05/24/21 05/24/21 05/24/21 03:40 06:21 12:33 WBC RBC Hgb Hct MCV MCH MCHC RDW Std Deviation RDW Coeff of Marcy Plt Count MPV Immature Gran % (Auto) Neut % (Auto) Lymph % (Auto) [place] % (Auto) Eos % (Auto) Baso % (Auto) Absolute Neuts (auto) Absolute Lymphs (auto) Nucleated RBC % Sodium 139 Potassium 3.8 Chloride 98 Carbon Dioxide 37.0 H Anion Gap 4 L BUN 24 H Creatinine 0.77 Estim Creat Clear Calc 76.32 Est GFR (MDRD) Af Amer 102 Est GFR (MDRD) Non-Af 85 BUN/Creatinine Ratio 31.2 H Glucose 361 H Calcium 8.0 L Total Bilirubin 0.50 AST 202 H ALT 993 H Alkaline Phosphatase 169 H Total Protein 5.5 L Albumin 2.5 L Globulin 3.0 Albumin/Globulin Ratio 0.8 L POC Glucose 358 H 402 H Micro: Microbiology 05/23/21 03:30 Urine Catheter - Catheter Urine Culture - Preliminary Culture exhibits no growth. 05/23/21 03:31 Sputum, Induced/Lukens Gram Stain - Final 05/23/21 03:31 Sputum, Induced/Lukens Respiratory Culture - Preliminary Appears to be normal respiratory carrie. Further studies to follow. 05/23/21 03:31 Mucosa - Nasopharyngeal Respiratory Panel (PCR) - Final 05/23/21 03:30 Urine Catheter - Balderrama Legionella Antigen - Final 05/23/21 03:30 Urine Catheter - Balderrama Streptococcus pneumoniae Antigen (M - Final 05/23/21 02:25 Mucosa - Nose SARS-CoV-2 Antigen (Rapid) - Final Physical Exam Const Constitutional Narrative: Patient is sedated and on the ventilator at this time General Appearance: cooperative, well kempt and well developed Orientation / Consciousness: awake, oriented to person, oriented to place and oriented to time HEENT normocephalic, head/scalp atraumatic and moist oral mucous membranes Head and Scalp: normocephalic Eyes conjunctivae normal Neck nuchal rigidity, supple, no JVD and thyroid normal General: trachea midline Resp normal respiratory effort, no retractions, no use of accessory muscles and clear to auscultation bilaterally Auscultation: Negative for rales, rhonchi or wheezes Cardio regular rate, regular rhythm, S1 normal heart sound, S2 normal heart sound, no murmurs, no rub and no gallops GI normal to inspection, nondistended, normoactive bowel sounds, soft to palpation, non-tender and non-distended Extremity no clubbing, cyanosis or edema Skin no rashes or lesions noted, no wounds, skin turgor normal and no jaundice General Skin Exam: no breakdown Neuro Neuro Narrative: Patient is sedated and on the ventilator Psych thought process normal Psych Narrative: Patient is sedated and on the ventilator Assessment & Plan Assessment/Plan (1) Respiratory failure: PLAN: 1. Acute combined respiratory failure-exact etiology unclear at this point, pulmonary medicine is participating in the patient's care at this time, she remains on the ventilator #2 chronic obstructive pulmonary disease #3 type 2 diabetes #4 essential hypertension #5 GERD #6 obesity Charges/Coding Visit Charges Inpatient E&M: 01188 Subs Hosp L2
--- NOTE | 2021-05-24 17:08 | NURSING ---
All pt teaching deferred until acute illnesses are resolved and pt is extubated and alert.
[2021-05-24 17:55] LABS: Bedside Glucose 428 mg/dL (70-110)
[2021-05-24] MEDS: Dexmedetomidine 1,000 mcg in 0.9% NS 240 mL 39.8 MCG CONT INF (18:04)
[2021-05-24] MEDS: hydrALAZINE 20 MG/ML Vial 10 MG IV (19:39)
[2021-05-24] MEDS: Vital AF 1.2 Cal Liquid 1,000 ML 55 ML GT (19:52)
[2021-05-24] MEDS: Ceftriaxone 1 GM/50 ML BAG IV (21:05)
[2021-05-24] MEDS: Atorvastatin Calcium 10 MG Tablet GT (21:07)
[2021-05-24 23:30] LABS: Bedside Glucose 437 mg/dL (70-110)
[2021-05-25] VITALS (39 sets, daily range): BP systolic 106–165; BP diastolic 59–99; PULSE 64–96; RESP 13–25; TEMP 36.6–39.1; O2SAT 87–99
[2021-05-25] MEDS: Metoprolol Tartrate 5 MG/5 ML Vial IV
[2021-05-25] MEDS: Dexmedetomidine 1,000 mcg in 0.9% NS 240 mL 39.8 MCG CONT INF ×2 (00:11→06:17)
[2021-05-25] MEDS: hydrALAZINE 20 MG/ML Vial 10 MG IV (01:49)
[2021-05-25] MEDS: Acetaminophen 650 MG/20 ML UDC GT (02:34)
[2021-05-25] MEDS: TITRATION PARAMETER CHANGE 1 EACH IV (03:05)
--- NOTE | 2021-05-25 06:09 | PN.CC_ITS ---
Assessment & Plan Assessment/Plan (1) Acute on chronic respiratory failure with hypoxia and hypercapnia: PLAN: RECOMMENDATIONS: 1. Continue patient on spontaneous mode of mechanical ventilation. 2. Place fentanyl on hold and decrease Precedex dose. Once the patient is more alert, we will plan to extubate. 3. Once extubated, wean supplemental oxygen as tolerated. 4. Perform bedside swallow evaluation and advance diet accordingly. 5. Discontinue ceftriaxone. 6. Continue scheduled bronchodilators and steroids. 7. Continue appropriate ICU prophylaxis. IMPRESSIONS: 1. Acute on chronic combined respiratory failure While the patient does have a reported history of both COPD and asthma, she has never completed pulmonary function testing previously. She does have an extensive smoking history, along with a history of medical noncompliance and has poor outpatient follow-up. I am doubtful that based upon the chest imaging saad dies that the patient has an underlying bacterial pneumonia. In addition, given concerns that the patient may have developed an allergic reaction to ceftriaxone, will discontinue antimicrobials. Continue scheduled bronchodilators and steroids. The patient passed her spontaneous breathing trial this morning and will be extubated accordingly. Once extubated, wean supplemental oxygen as tolerated and perform bedside swallow evaluation. Encourage incentive spirometer use and mobilize patient as tolerated. 2. Heart failure with preserved ejection fraction/pulmonary hypertension Continue outpatient cardiac medications. 3. Clinical concern for underlying sleep disordered breathing The patient needs to follow-up with the pulmonary medicine clinic so that a diagnostic polysomnogram can be completed. In the interim, empiric utilization of BIPAP with naps and nightly can be considered once the patient is extubated. 4. Polycythemia Clinical concern for chronic hypoxemia due to outpatient noncompliance with supplemental oxygen. 5. Acute hepatitis The patient has elevated transaminase levels of unclear etiology. Liver ultrasound revealed fatty infiltration without any other acute abnormality identified. Liver function is improving without intervention. 6. Continuous tobacco dependency/diabetes mellitus/morbid obesity/history of medical noncompliance/chronic pain syndrome Complicates care, management, recovery and prognosis. Continue home medications as indicated. TIME: 37 minutes of critical care time, independent of procedures, was spent addressing the patient's acute on chronic combined respiratory failure, heart failure with preserved ejection fraction, pulmonary hypertension, polycythemia, acute hepatitis, review of all data and collaboration with the care team. ([id number]) Subjective Subjective The patient was seen and examined at the bedside this morning. Events from the last 24 hours have been reviewed. The patient is currently febrile with a T-max of 101.1 ?F. She is currently documented to be overall net +5 L for the hospital admission. Labs were unable to be obtained this morning as the patient became significantly agitated with attempts to draw her blood. The patient has done okay this morning on her spontaneous breathing trial, but remains sedated on both Precedex and fentanyl. With weaning of sedation, the patient becomes exceedingly agitated and non-directable. Of note, the patient does appear to be developing a rash after she received ceftriaxone and her fever overnight seems to also correspond with her administration of the aforementioned antibiotic. No infectious etiology has yet to be identified. Therefore, the antibiotic will be discontinued over concerns that she may be having an allergic reaction to the medication. Objective Data Objective Data The patient's most recent lab work, culture data and imaging studies have all been personally reviewed. Surface echocardiogram from February 2019 revealed moderate to severe concentric LVH with an ejection fraction of 65% and evidence of diastolic dysfunction. Right ventricular systolic pressure was estimated to be 45 mmHg. Liver ultrasound revealed fatty infiltration. Rapid coronavirus antigen testing was negative. Strep and urine Legionella antigens were negative. Blood and urine cultures have shown no growth to date. Sputum culture is pending. Vital Signs: Vital Signs Temp Pulse Resp BP Pulse Ox 101.1 F H 71 14 145/83 H 87 05/25/21 03:59 05/25/21 05:13 05/25/21 05:13 05/25/21 03:59 05/25/21 05:13 Oxygen Flow Rate (L/min) 5 Oxygen Delivery Method Mechanical Ventilator Weight: 236 lb 15.951 oz Body Mass Index (BMI) 39.1 Intake & Output: Intake and Output for Last 24 Hours 05/23/21 05/24/21 05/25/21 23:59 23:59 23:59 Intake Total 2443.75 / 2534.37 4316.30 / 4466.10 1097.40 / 1097.40 Output Total 1530 / 1605 1240 / 1240 Balance 913.75 / 929.37 3076.30 / 3226.10 1097.40 / 1097.40 Lab / Micro Data Attestation: I reviewed the patient's lab results. Result Diagrams: 05/25/21 07:50 05/25/21 07:50 Labs: Laboratory Results - last 24 hr 05/24/21 05/24/21 05/24/21 06:21 12:33 17:29 POC Glucose 358 H 402 H 428 H 05/24/21 23:21 POC Glucose 437 H Micro: Microbiology 05/23/21 03:30 Urine Catheter - Catheter Urine Culture - Preliminary Culture exhibits no growth. 05/23/21 03:31 Sputum, Induced/Lukens Gram Stain - Final 05/23/21 03:31 Sputum, Induced/Lukens Respiratory Culture - Preliminary Appears to be normal respiratory carrie. Further studies to follow. 05/23/21 03:31 Mucosa - Nasopharyngeal Respiratory Panel (PCR) - Final 05/23/21 03:30 Urine Catheter - Balderrama Legionella Antigen - Final 05/23/21 03:30 Urine Catheter - Balderrama Streptococcus pneumoniae Antigen (M - Final 05/23/21 02:25 Mucosa - Nose SARS-CoV-2 Antigen (Rapid) - Final Physical Exam Const no apparent distress General Appearance: intubated and patient mechanically ventilated Nutritional Appearance: obese HEENT normocephalic and head/scalp atraumatic Mouth: endotracheal tube in place and OG tube in place Eyes PERRL, EOMs intact bilaterally and conjunctivae normal Neck supple General: trachea midline Resp Resp Narrative: Coarse mechanical breath sounds bilaterally Auscultation: diminished lung sounds Cardio regular rate, regular rhythm and no murmurs GI normal to inspection, nondistended, normoactive bowel sounds Extremity no clubbing, cyanosis or edema Skin General Skin Exam: erythema Neuro Sensorium / Orientation: sedated on vent Charges/Coding Procedures Hospitalists Procedures: 03960 Critial Care 1st Hr
[2021-05-25 06:40] LABS: Bedside Glucose 408 mg/dL (70-110)
[2021-05-25] MEDS: Insulin Lispro 100 UNIT/ML INSULN.PEN SC ×4 (06:40→21:38)
[2021-05-25] MEDS: Ipratropium/Albuterol Sulfate 3 ML AMPUL.NEB INHALATION ×4 (06:47→23:22)
--- NOTE | 2021-05-25 07:00 | NURSING ---
Dr Myers at bedside, gives verbal order to decrease precedex to 1.0 mcg/min/kg
[2021-05-25 08:08] LABS: Absolute Lymphocyte Count 0.61 X10^3/uL (0.83-4.51); Absolute Neutrophil Count 10.6 X10^3/uL (2.0-7.7); Basophil# 0.02 X10^3/uL; Basophil% 0.2 % (0-1); Hemoglobin 17.8 g/dL (12.0-15.0); Lymphocyte # 0.61 X10^3/ul (0.83-4.51); Mean Corp Hgb Conc 30.9 g/dL (32-36); Mean Corpuscular Hgb 28.3 pg (27.0-32.0); Mean Corpuscular Volume 91.6 fL (81-99); Mean Platelet Vol. 12.3 fl (6.2-12.0); Monocyte# 0.98 X10^3/uL; NRBC Flagged by Analyzer 0 % (0-5); Neutrophil % 86.2 % (47-70); Platelet Count 115 K/mm3 (150-450); RBC Distribution Width CV 14.4 % (11.6-14.6); RBC Distribution Width SD 46.6 fl (35.1-43.9); Red Blood Count 6.29 M/mm3 (4.2-5.4); White Blood Count 12.3 K/mm3 (4.4-11.0)
[2021-05-25 08:13] LABS: Hematocrit 57.6 % (37-47)
[2021-05-25 08:37] LABS: ALB/GLOB Ratio 0.7 RATIO (0.9-2.4); AST(SGOT) 73 U/L (15-37); Alanine Aminotransfer ALT/SGPT 658 U/L (13-56); Albumin, Serum 2.6 g/dL (3.2-5.0); Alkaline Phosphatase 139 U/L (45-117); Anion Gap 2 (5-15); BUN 34 mg/dL (7-18); BUN/Creat Ratio 42.8 RATIO (10-20); Calcium,Total 8.1 mg/dL (8.5-10.1); Chloride 102 mmol/L (98-107); Creatinine, Serum 0.79 mg/dL (0.55-1.02); EST Glomerular Filtration Rate 82 mL/min (>60); Est Glom Filt Rate - Afr Amer 99 mL/min (>60); Estimated Creatinine Clearance 74.39 ml/min; Globulin 3.6 g/dL (2.2-4.2); Glucose 364 mg/dL (74-106); Potassium 4.8 mmol/L (3.5-5.1); Protein, Total 6.2 g/dL (6.4-8.2); Sodium Level 136 mmol/L (136-145)
[2021-05-25] MEDS: hydroCHLOROthiazide 25 MG Tablet GT (08:57)
[2021-05-25] MEDS: Enoxaparin 40 MG/0.4 ML Syringe SC (08:58)
[2021-05-25] MEDS: Gabapentin 600 MG Tablet 1200 MG GT (08:59)
[2021-05-25] MEDS: amLODIPine 10 MG Tablet PO (09:18)
[2021-05-25] MEDS: busPIRone 5 MG Tablet 10 MG PO ×2 (09:18→21:37)
[2021-05-25] MEDS: Lisinopril 40 MG Tablet PO (09:21)
[2021-05-25] MEDS: Senna/Docusate Sodium 1 Tablet PO (09:21)
[2021-05-25] MEDS: Nystatin Powder 15gm Bottle 1 APPLIC TOPICAL (09:22)
[2021-05-25] MEDS: Pantoprazole Sodium 40 MG Tablet PO (09:24)
[2021-05-25] MEDS: Acetaminophen 325 MG Tablet 650 MG PO ×3 (09:39→22:54)
--- NOTE | 2021-05-25 11:23 | CASEMGMT ---
Addendum entered by Cindi Castaneda 05/25/21 11:47: Updated by hospitalist and agreeable to palliative consult. RN CM called and faxed [facility] regarding request for consult. Original Note: Palliative screening tool completed for [facility]. Patient meets criteria for palliative consult. Hospitalist updated and he will discuss with patient and update CM. CM will continue to follow patient.
[2021-05-25 11:56] LABS: Bedside Glucose 261 mg/dL (70-110)
--- NOTE | 2021-05-25 13:08 | EKG12_ITS ---
Test Reason : EKG CHANGE Blood Pressure : / mmHG Vent. Rate : 085 BPM Atrial Rate : 085 BPM P-R Int : 138 ms QRS Dur : 080 ms QT Int : 376 ms P-R-T Axes : 063 103 032 degrees QTc Int : 447 ms Normal sinus rhythm Low voltage QRS Septal infarct (cited on or before 16-OCT-2020) Abnormal ECG When compared with ECG of 23-MAY-2021 02:02, Questionable change in initial forces of Anterior leads Confirmed by JASON MARTINEZ, BATSHEVA ([id number]), deputy editor in chief DOV LONGO ([id number]) on 06/05/2021 7:56:33 AM Referred By: SAL Confirmed By:BATSHEVA GOMEZ MD
--- NOTE | 2021-05-25 14:00 | CASEMGMT ---
RN CM Face to Face with patient for initial transition planning/care coordination assessment. RN CM introduced self and role at [facility]. Patient lying in bed, alert and slightly confused. Patient willing to participate in assessment and is able to answer some questions appropriately. Care providers, pharmacy, and demographics verified. Patient wishes to discharge home, with possible HHC, patient has yet to work with therapy, will monitor. Patient states she has no further needs or concerns at this time. CM to follow for discharge planning needs that may arise. PCP: Geronimo Specialists: Raulito academic intern Preferred Pharmacy: [facility] Insurance: [employer] Prescription Benefit: yes Living Will/HPOA: none LNOK: parents, significant other Adrian Living Arrangements: Patient lives with significant other in a mobile home with 6 steps and railing to enter the home. Patient states she is independent at home. Transportation: significant other DME/HHC: Patient states she has nebulizer and home oxygen [facility]. Patient denies previous HHC or SNF. Disposition Plan: TBD. Will monitor course of treatment and progress with therapy. Cindi SOMMERSN, RN, CM
--- NOTE | 2021-05-25 14:52 | PCM.CONS.P ---
Assessment & Plan Assessment/Plan (1) Shortness of breath: (2) Acute on chronic respiratory failure with hypoxia and hypercapnia: (3) Acute pancreatitis: QUALIFIERS: Pancreatitis type: unspecified pancreatitis type Acute pancreatitis complication: unspecified Qualified Code(s): K85.90 - Acute pancreatitis without necrosis or infection, unspecified (4) Morbid obesity with BMI of 40.0-44.9, adult: (5) Chronic back pain: QUALIFIERS: Back pain location: back pain in unspecified location Back pain laterality: unspecified Qualified Code(s): M54.9 - Dorsalgia, unspecified; G89.29 - Other chronic pain (6) GERD (gastroesophageal reflux disease): QUALIFIERS: Esophagitis presence: esophagitis presence not specified Qualified Code(s): K21.9 - Gastro-esophageal reflux disease without esophagitis (7) Diabetes mellitus, type II: QUALIFIERS: Diabetes mellitus complication status: with other specified complication Diabetes mellitus intermediate card tender insulin use: with fci use Qualified Code(s): E11.69 - Type 2 diabetes mellitus with other specified complication; Z79.4 - intermediate card tender (current) use of insulin (8) Herniated thoracic disc without myelopathy: (9) Tobacco abuse: (10) Hypersomnia: (11) Hypertension: QUALIFIERS: Hypertension type: essential hypertension Qualified Code(s): I10 - Essential (primary) hypertension (12) HLD (hyperlipidemia): QUALIFIERS: Hyperlipidemia type: unspecified Qualified Code(s): E78.5 - Hyperlipidemia, unspecified PLAN: 50-year-old female with multiple comorbidities, hypercapnic and hypoxemic respiratory failure on baseline oxygen requirement of 4 L, seen today for palliative care consultation for management of shortness of breath and due to frequent rehospitalizations. 1. Shortness of breath: Multifactorial, failed to follow-up with pulmonary for testing. Recommended to Nola to pursue pulmonary testing and adhere to follow-up schedule, it would be best to control underlying etiology. Would not prescribe any opioids to the patient at this time, would use as a last resort if all other treatment fails. Palliative can provide supportive care and assist patient in navigating her current health situation. 2. Anxiety/probable psychiatric issues: Patient is not cooperative, she appears to be very agitated. She will not let me finish a sentence. She is being irrational, with a manic presentation. I was unable to complete an evaluation on her. Will attempt again next week, at the earliest will be Friday. If patient is discharged home over the weekend, we can follow-up with her as an outpatient. 3. T2 DM/morbid obesity/chronic back pain/acute pancreatitis/GERD/herniated thoracic disc/hypersomnia/hypertension/tobacco abuse/HLD: Complicates overall care, management, recovery, and prognosis. Defer management Thank you for the opportunity to participate in this patient's care, please do not hesitate to contact [facility] with any further questions or concerns. Palliative direct line is [phone]. We will follow up after discharge and will discuss palliative services further at that time. If she is still here next week, we will have patient liaison come talk to her, may be she will be in better mentation at that point. Discussed pt with nursing and therapy. Greater than 50% of F2F visit dedicated to education and counseling of palliative care services, medications, comorbid conditions and potential assistance with management, and plan of care moving forward. Start time: 2 End time: 1544 HPI Consult Data Date of Consult: 05/25/21 HPI Narrative HPI Narrative: NOLA LONG, is a 50 F who presents to [facility] 05/23 with progressive shortness of breath and hypoxemia, as well as acute mental status changes. Patient was 75% on room air. Chest x-ray showed nothing acute. She was placed on BiPAP in the ED and started on bronchodilators and IV steroids. She did not tolerate BiPAP, so was emergently intubated. She was then admitted to the ICU for further management of acute on chronic hypoxemic and hypercapnic respiratory failure. Patient has baseline oxygen requirements of 4 L/NC. She has an extensive smoking history and significant anxiety. Per pulmonary note, patient has had significant adverse behavioral manifestations with the use of corticosteroids, which was felt to be related to her underlying anxiety. She had been seen at the pulmonary clinic at one point, but never followed through after her initial visit. She never completed any of the ordered testing. She has not ever had pulmonary function test or PSG. Last echocardiogram in February 2019 showed moderate to severe LVH, EF of 65%, and diastolic dysfunction. RVSP estimated at 45 mmHg. Patient was extubated today, 05/25. Silica Filter Operator recommended continuing scheduled bronchodilators and steroids, discontinuation of antibiotics, wean supplemental oxygen as tolerated, and bedside swallow to ensure swallowing intact after extubation. She has been febrile today with a T high of 102.3. She is off antibiotics secondary to possible reaction/rash to ceftriaxone. Currently on 7 L of oxygen supplementation. She is hemodynamically stable. Patient appears to be quite agitated at the moment. She would not allow a complete physical exam. She is restless and thrashing around in the bed. It was very difficult to get even a couple of words in a row to discuss palliative care. She required redirection multiple times a minute. Therapy was present to get her up out of bed, however she was not following commands and was becoming belligerent. She appeared mildly short of breath. She about rolled out of bed, assisted with raising side rail to avoid injury. Again, was unable to get much out of her. She was shaking her fist and yelling. [facility] Medical History Asthma Benign essential hypertension Chronic back pain COPD COPD with acute exacerbation Diabetes mellitus, type II GERD (gastroesophageal reflux disease) Herniated thoracic disc without myelopathy Hypertensive urgency Obesity (BMI 30-39.9) Otitis media Home Medications amlodipine 10 mg PO DAILY 08/13/15 [History Last Taken 10/13/20] hydrochlorothiazide 25 mg PO DAILY 10/26/17 [History Last Taken 10/13/20 0800] ipratropium-albuterol 3 ml INHALATION 4X/DAY 03/10/18 [History Last Taken 10/14/20 06:00] albuterol sulfate 2.5 mg INHALATION Q4H PRN PRN 03/13/19 [History Last Taken 10/14/20 06:00] albuterol sulfate [Ventolin HFA] 90 mcg INHALATION Q4H PRN 03/13/19 [History Last Taken 07/11/20] Oxygen, Home [Home Oxygen] 4 - 6 lpm NASAL PRN PRN #0 04/06/19 [Rx Last Taken 07/11/20] budesonide-formoterol HFA 160 mcg-4.5 mcg/actuation aerosol inhaler 2 puff INHALATION BID #1 ea 04/06/19 [Rx Last Taken 10/14/20 06:00] insulin glargine 30 unit SQ DAILY #1 insuln.pen 11/03/19 [Rx Last Taken 07/11/20] dicyclomine 20 mg PO TIDAC #20 cap 10/12/20 [Rx Last Taken Unknown] atorvastatin 10 mg PO DAILY 10/14/20 [History Last Taken 10/13/20] gabapentin 1,200 mg PO BID 10/14/20 [History Last Taken 10/14/20 1200] guaifenesin 1,200 mg PO BID #14 tab 10/17/20 [Rx Last Taken Unknown] lisinopril 40 mg PO DAILY #0 10/17/20 [Rx Last Taken 10/13/20 08:00] nicotine 7 mg TRANSDERM. DAILY #30 patch 10/17/20 [Rx Last Taken Unknown] pantoprazole 40 mg PO BID #60 tab 10/17/20 [Rx Last Taken Unknown] Allergy/AdvReac Type Severity Reaction Status Date / Time aspirin Allergy Anaphylaxis Verified 05/23/21 01:53 ceftriaxone [From Rocephin] Allergy Rash Verified 05/25/21 09:07 cyclobenzaprine HCl Allergy Rash Verified 05/23/21 01:53 [From Flexeril] levofloxacin [From Levaquin] Allergy Rash Verified 05/23/21 01:53 naproxen [From Naprosyn] Allergy Anaphylaxis Verified 05/23/21 01:53 bupropion HCl AdvReac nightmares Verified 05/23/21 01:53 [From Wellbutrin] doxycycline AdvReac Diarrhea Verified 05/23/21 01:53 Family History Mother Breast cancer Cancer Skin Father COPD (chronic obstructive pulmonary disease) Hypertension Heart disease Cancer Skin Surgical History History of section History of tubal ligation Social History household members: significant other Smoking Status: Current every day smoker tobacco type: cigarettes Tobacco: How many years used: 24 how long ago did patient quit smokin, 1ppd second hand exposure: Yes alcohol intake: never substance use type: does not use ROS ROS Narrative Limited d/t behaviors. Review of systems otherwise negative from a constitutional, HEENT, respiratory, cardiovascular, GI, genitourinary, musculoskeletal, skin, neurologic, psychiatric and hematologic system unless stated above. Physical Exam Narrative Limited exam secondary to behaviors and agitation. Her lungs are diminished per nursing. She appears quite uncomfortable in the bed but bed mobility is good. She is uncooperative. Poor personal hygiene. No observed cough. No complaints of pain. Const Exam Limitations: altered mental status and behavioral limitations HEENT normocephalic and head/scalp atraumatic Eyes General Eye: exophthalmos Conjunctiva: conjunctiva normal Sclera: sclera normal Resp Effort and Inspection: tachypneic Cardio regular rhythm GI GI Narrative: obese, was unable to auscultate BS d/t uncooperative Extremity no clubbing, cyanosis or edema Psych Appearance: unkempt Attitude: bizarre, uncooperative and agitated Activity / Motor Behavior: hyperactive and restless Speech: loud Mood & Affect: hostile affect Thought Process: flight of ideas Attention / Concentration: attention grossly impaired Insight: poor Judgement: poor
[2021-05-25 16:30] LABS: Bedside Glucose 283 mg/dL (70-110)
--- NOTE | 2021-05-25 17:37 | PCM.PN.HOSP ---
Subjective Subjective Patient was seen and examined today in the ICU, she is currently extubated, she is alert and able to answer simple questions. I talked her briefly about consenting to palliative care consultation she agreed to this, I talked briefly with pulmonary medicine about her care today. The exact etiology of the patient's respiratory failure is unknown at this time. Objective Data Objective Data Vital Signs: Vital Signs Temp Pulse Resp BP Pulse Ox 99.2 F H 93 23 H 129/93 H 93 05/25/21 17:00 05/25/21 17:00 05/25/21 17:00 05/25/21 17:00 05/25/21 17:00 Oxygen Flow Rate (L/min) 6 Oxygen Delivery Method Nasal Cannula Weight: 107.5 kg Body Mass Index (BMI) 39.1 Intake & Output: Intake and Output for Last 24 Hours 05/23/21 05/24/21 05/25/21 23:59 23:59 23:59 Intake Total 2443.75 / 2534.37 4316.30 / 4466.10 2876.27 / 2876.27 Output Total 1530 / 1605 1240 / 1240 1250 / 1250 Balance 913.75 / 929.37 3076.30 / 3226.10 1626.27 / 1626.27 Lab / Micro Data Result Diagrams: 05/25/21 07:50 05/25/21 07:50 Labs: Laboratory Results - last 24 hr 05/24/21 05/24/21 05/25/21 17:29 23:21 06:35 WBC RBC Hgb Hct MCV MCH MCHC RDW Std Deviation RDW Coeff of Marcy Plt Count MPV Immature Gran % (Auto) Neut % (Auto) Lymph % (Auto) [place] % (Auto) Eos % (Auto) Baso % (Auto) Absolute Neuts (auto) Absolute Lymphs (auto) Nucleated RBC % Sodium Potassium Chloride Carbon Dioxide Anion Gap BUN Creatinine Estim Creat Clear Calc Est GFR (MDRD) Af Amer Est GFR (MDRD) Non-Af BUN/Creatinine Ratio Glucose Calcium Total Bilirubin AST ALT Alkaline Phosphatase Total Protein Albumin Globulin Albumin/Globulin Ratio POC Glucose 428 H 437 H 408 H 05/25/21 05/25/21 05/25/21 07:50 07:50 11:12 WBC 12.3 H RBC 6.29 H Hgb 17.8 H Hct 57.6 H MCV 91.6 MCH 28.3 MCHC 30.9 L RDW Std Deviation 46.6 H RDW Coeff of Marcy 14.4 Plt Count 115 L MPV 12.3 H Immature Gran % (Auto) 0.600 Neut % (Auto) 86.2 H Lymph % (Auto) 5.0 L [place] % (Auto) 8.0 Eos % (Auto) 0.0 Baso % (Auto) 0.2 Absolute Neuts (auto) 10.6 H Absolute Lymphs (auto) 0.61 L Nucleated RBC % 0 Sodium 136 Potassium 4.8 Chloride 102 Carbon Dioxide 32.0 Anion Gap 2 L BUN 34 H Creatinine 0.79 Estim Creat Clear Calc 74.39 Est GFR (MDRD) Af Amer 99 Est GFR (MDRD) Non-Af 82 BUN/Creatinine Ratio 42.8 H Glucose 364 H Calcium 8.1 L Total Bilirubin 0.70 AST 73 H ALT 658 H Alkaline Phosphatase 139 H Total Protein 6.2 L Albumin 2.6 L Globulin 3.6 Albumin/Globulin Ratio 0.7 L POC Glucose 261 H 05/25/21 16:24 WBC RBC Hgb Hct MCV MCH MCHC RDW Std Deviation RDW Coeff of Marcy Plt Count MPV Immature Gran % (Auto) Neut % (Auto) Lymph % (Auto) [place] % (Auto) Eos % (Auto) Baso % (Auto) Absolute Neuts (auto) Absolute Lymphs (auto) Nucleated RBC % Sodium Potassium Chloride Carbon Dioxide Anion Gap BUN Creatinine Estim Creat Clear Calc Est GFR (MDRD) Af Amer Est GFR (MDRD) Non-Af BUN/Creatinine Ratio Glucose Calcium Total Bilirubin AST ALT Alkaline Phosphatase Total Protein Albumin Globulin Albumin/Globulin Ratio POC Glucose 283 H Micro: Microbiology 05/23/21 03:30 Urine Catheter - Catheter Urine Culture - Final Culture exhibits no growth. 05/23/21 03:31 Sputum, Induced/Lukens Gram Stain - Final 05/23/21 03:31 Sputum, Induced/Lukens Respiratory Culture - Final 05/23/21 03:31 Mucosa - Nasopharyngeal Respiratory Panel (PCR) - Final 05/23/21 03:30 Urine Catheter - Balderrama Legionella Antigen - Final 05/23/21 03:30 Urine Catheter - Balderrama Streptococcus pneumoniae Antigen (M - Final 05/23/21 02:25 Mucosa - Nose SARS-CoV-2 Antigen (Rapid) - Final Physical Exam Const alert and no apparent distress Constitutional Narrative: Patient has morbid obesity General Appearance: cooperative, well kempt and well developed Orientation / Consciousness: awake, oriented to person, oriented to place and oriented to time HEENT normocephalic, head/scalp atraumatic and moist oral mucous membranes Head and Scalp: normocephalic Eyes PERRL, EOMs intact bilaterally and conjunctivae normal Neck nuchal rigidity, supple, no JVD, thyroid normal and no carotid bruits General: trachea midline Resp normal respiratory effort, no retractions, no use of accessory muscles and clear to auscultation bilaterally Auscultation: Negative for rales, rhonchi or wheezes Cardio regular rate, regular rhythm, S1 normal heart sound, S2 normal heart sound, no murmurs, no rub and no gallops GI normal to inspection, nondistended, normoactive bowel sounds, soft to palpation, non-tender and non-distended Extremity normal to inspection and no clubbing, cyanosis or edema Skin no rashes or lesions noted and no wounds General Skin Exam: no breakdown Neuro oriented x3, CN's II-XII intact bilaterally, no focal motor deficits and no sensory deficits noted Sensorium / Orientation: awake and alert Speech: speech normal Psych thought process normal and affect normal Assessment & Plan Assessment/Plan (1) Respiratory failure: PLAN: (1) Respiratory failure: PLAN: 1. Acute combined respiratory failure-exact etiology unclear at this point, pulmonary medicine is participating in the patient's care at this time, patient is currently on 6 L via nasal cannula at this time #2 chronic obstructive pulmonary disease #3 type 2 diabetes #4 essential hypertension #5 GERD #6 obesity
[2021-05-25] MEDS: Gabapentin 600 MG Tablet 1200 MG PO (21:37)
[2021-05-25] MEDS: Atorvastatin Calcium 10 MG Tablet PO (21:37)
[2021-05-25 22:11] LABS: Bedside Glucose 311 mg/dL (70-110)
[2021-05-26] VITALS (19 sets, daily range): BP systolic 122–150; BP diastolic 63–96; PULSE 75–97; RESP 15–22; TEMP 36.5–36.8; O2SAT 89–99
[2021-05-26 05:32] LABS: Absolute Lymphocyte Count 1.51 X10^3/uL (0.83-4.51); Absolute Neutrophil Count 10.8 X10^3/uL (2.0-7.7); Basophil# 0.03 X10^3/uL; Basophil% 0.2 % (0-1); Eosinophil# 0.01 X10^3/uL; Eosinophils% 0.1 % (0-5); Hemoglobin 17.8 g/dL (12.0-15.0); Lymphocyte # 1.51 X10^3/ul (0.83-4.51); Lymphocyte % 10.8 % (19-41); Mean Corp Hgb Conc 29.4 g/dL (32-36); Mean Corpuscular Hgb 28.1 pg (27.0-32.0); Mean Corpuscular Volume 95.6 fL (81-99); Mean Platelet Vol. 11.3 fl (6.2-12.0); Monocyte% 11.4 % (0-10); NRBC Flagged by Analyzer 0 % (0-5); Neutrophil # 10.81 X10^3/uL (2.7-7.7); Neutrophil % 77.1 % (47-70); POSITIVE DIFFERENTIAL YES; Platelet Count 227 K/mm3 (150-450); RBC Distribution Width CV 14.4 % (11.6-14.6); RBC Distribution Width SD 48.9 fl (35.1-43.9); Red Blood Count 6.33 M/mm3 (4.2-5.4)
[2021-05-26 05:40] LABS: Differential Indicated SCAN CRITERIA MET; Hematocrit 60.5 % (37-47)
[2021-05-26 05:51] LABS: ALB/GLOB Ratio 0.8 RATIO (0.9-2.4); AST(SGOT) 47 U/L (15-37); Alanine Aminotransfer ALT/SGPT 538 U/L (13-56); Alkaline Phosphatase 154 U/L (45-117); Anion Gap 3 (5-15); BUN 26 mg/dL (7-18); BUN/Creat Ratio 35.6 RATIO (10-20); Calcium,Total 8.8 mg/dL (8.5-10.1); Chloride 94 mmol/L (98-107); Creatinine, Serum 0.73 mg/dL (0.55-1.02); EST Glomerular Filtration Rate 90 mL/min (>60); Est Glom Filt Rate - Afr Amer 109 mL/min (>60); Globulin 3.7 g/dL (2.2-4.2); Glucose 313 mg/dL (74-106); Potassium 4.1 mmol/L (3.5-5.1); Protein, Total 6.7 g/dL (6.4-8.2); Sodium Level 136 mmol/L (136-145)
--- NOTE | 2021-05-26 06:39 | PCM.PN.INT ---
Assessment & Plan Assessment/Plan (1) Acute on chronic respiratory failure with hypoxia and hypercapnia: PLAN: RECOMMENDATIONS: 1. Continue to wean supplemental oxygen to maintain saturations at or above 90%. 2. No need for further antimicrobial therapy. 3. Continue scheduled bronchodilators. Will restart budesonide. 4. Encourage incentive spirometer use and mobilize patient as tolerated. 5. Perform walking oximetry study prior to consideration for discharge home. 6. The patient is medically stable for transfer out of the intensive care unit. IMPRESSIONS: 1. Acute on chronic combined respiratory failure While the patient does have a reported history of both COPD and asthma, she has never completed pulmonary function testing previously. She does have an extensive smoking history, along with a history of medical noncompliance and has poor outpatient follow-up. Infectious work-up was unrevealing. I do suspect that her exacerbation was likely precipitated by outpatient noncompliance with prescribed medication therapy and supplemental oxygen. The patient was able to be extubated on May 25. We will plan to continue scheduled bronchodilators and inhaled corticosteroid. Continue to wean supplemental oxygen as tolerated. Encourage incentive spirometer use and mobilize patient as tolerated. Perform walking oximetry study prior to consideration for discharge home. I would recommend that the patient follow-up in the pulmonary medicine clinic 2 weeks after discharge. 2. Heart failure with preserved ejection fraction/pulmonary hypertension Continue outpatient cardiac medications. 3. Clinical concern for underlying sleep disordered breathing The patient needs to follow-up with the pulmonary medicine clinic so that a diagnostic polysomnogram can be completed. In the interim, empiric utilization of BIPAP with naps and nightly can be considered. 4. Polycythemia Clinical concern for chronic hypoxemia due to outpatient noncompliance with supplemental oxygen. 5. Acute hepatitis The patient has elevated transaminase levels of unclear etiology. Liver ultrasound revealed fatty infiltration without any other acute abnormality identified. Liver function is improving without intervention. 6. Continuous tobacco dependency/diabetes mellitus/morbid obesity/history of medical noncompliance/chronic pain syndrome Complicates care, management, recovery and prognosis. Continue home medications as indicated. This note was generated with [employer] software. It may contain incorrect words, spelling, and punctuation that were not noted in checking the note before signing. Subjective Subjective The patient was seen and examined at the bedside this morning. Events from the last 24 hours have been reviewed. The patient's fever resolved after her ceftriaxone and Precedex were discontinued. She remains afebrile this morning and hemodynamically stable. She is maintaining appropriate oxygen saturations on 4 L/min via nasal cannula. Overnight, the patient did have periods of manic episodes. She is currently documented to be overall net +5.3 L for the hospital admission. Liver function continues to improve. Objective Data Objective Data The patient's most recent lab work, culture data and imaging studies have all been personally reviewed. Surface echocardiogram from February 2019 revealed moderate to severe concentric LVH with an ejection fraction of 65% and evidence of diastolic dysfunction. Right ventricular systolic pressure was estimated to be 45 mmHg. Liver ultrasound revealed fatty infiltration. Rapid coronavirus antigen testing was negative. Strep and urine Legionella antigens were negative. Blood and urine cultures have shown no growth to date. Sputum culture has not demonstrated any growth to date. Vital Signs: Vital Signs Temp Pulse Resp BP Pulse Ox 98.2 F 90 22 H 143/83 H 90 05/26/21 06:00 05/26/21 06:00 05/26/21 06:00 05/26/21 06:00 05/26/21 06:00 Oxygen Flow Rate (L/min) 4 Oxygen Delivery Method Nasal Cannula Weight: 240 lb 8.389 oz Body Mass Index (BMI) 39.1 Intake & Output: Intake and Output for Last 24 Hours 05/24/21 05/25/21 05/26/21 23:59 23:59 23:59 Intake Total 4316.30 / 4466.10 2616.27 / 2616.27 1040 / 1040 Output Total 1240 / 1240 1250 / 1250 1025 / 1025 Balance 3076.30 / 3226.10 1366.27 / 1366.27 Lab / Micro Data Attestation: I reviewed the patient's lab results. Result Diagrams: 05/26/21 05:15 05/26/21 05:15 Labs: Laboratory Results - last 24 hr 05/25/21 05/25/21 05/25/21 06:35 07:50 07:50 WBC 12.3 H RBC 6.29 H Hgb 17.8 H Hct 57.6 H MCV 91.6 MCH 28.3 MCHC 30.9 L RDW Std Deviation 46.6 H RDW Coeff of Marcy 14.4 Plt Count 115 L MPV 12.3 H Immature Gran % (Auto) 0.600 Neut % (Auto) 86.2 H Lymph % (Auto) 5.0 L Hemphill % (Auto) 8.0 Eos % (Auto) 0.0 Baso % (Auto) 0.2 Absolute Neuts (auto) 10.6 H Absolute Lymphs (auto) 0.61 L Nucleated RBC % 0 [address] Review Sodium 136 Potassium 4.8 Chloride 102 Carbon Dioxide 32.0 Anion Gap 2 L BUN 34 H Creatinine 0.79 Estim Creat Clear Calc 74.39 Est GFR (MDRD) Af Amer 99 Est GFR (MDRD) Non-Af 82 BUN/Creatinine Ratio 42.8 H Glucose 364 H Calcium 8.1 L Total Bilirubin 0.70 AST 73 H ALT 658 H Alkaline Phosphatase 139 H Total Protein 6.2 L Albumin 2.6 L Globulin 3.6 Albumin/Globulin Ratio 0.7 L POC Glucose 408 H 05/25/21 05/25/21 05/25/21 11:12 16:24 21:33 WBC RBC Hgb Hct MCV MCH MCHC RDW Std Deviation RDW Coeff of Marcy Plt Count MPV Immature Gran % (Auto) Neut % (Auto) Lymph % (Auto) Hemphill % (Auto) Eos % (Auto) Baso % (Auto) Absolute Neuts (auto) Absolute Lymphs (auto) Nucleated RBC % Diff Path Review Sodium Potassium Chloride Carbon Dioxide Anion Gap BUN Creatinine Estim Creat Clear Calc Est GFR (MDRD) Af Amer Est GFR (MDRD) Non-Af BUN/Creatinine Ratio Glucose Calcium Total Bilirubin AST ALT Alkaline Phosphatase Total Protein Albumin Globulin Albumin/Globulin Ratio POC Glucose 261 H 283 H 311 H 05/26/21 05/26/21 05:15 05:15 WBC 14.0 H RBC 6.33 H Hgb 17.8 H Hct 60.5 H MCV 95.6 MCH 28.1 MCHC 29.4 L RDW Std Deviation 48.9 H RDW Coeff of Marcy 14.4 Plt Count 227 MPV 11.3 Immature Gran % (Auto) 0.400 Neut % (Auto) 77.1 H Lymph % (Auto) 10.8 L Hemphill % (Auto) 11.4 H Eos % (Auto) 0.1 Baso % (Auto) 0.2 Absolute Neuts (auto) 10.8 H Absolute Lymphs (auto) 1.51 Nucleated RBC % 0 [address] Review May foll Sodium 136 Potassium 4.1 Chloride 94 L Carbon Dioxide 39.0 H Anion Gap 3 L BUN 26 H Creatinine 0.73 Estim Creat Clear Calc 80.50 Est GFR (MDRD) Af Amer 109 Est GFR (MDRD) Non-Af 90 BUN/Creatinine Ratio 35.6 H Glucose 313 H Calcium 8.8 Total Bilirubin 0.60 AST 47 H ALT 538 H Alkaline Phosphatase 154 H Total Protein 6.7 Albumin 3.0 L Globulin 3.7 Albumin/Globulin Ratio 0.8 L POC Glucose Micro: Microbiology 05/23/21 03:30 Urine Catheter - Catheter Urine Culture - Final Culture exhibits no growth. 05/23/21 03:31 Sputum, Induced/Lukens Gram Stain - Final 05/23/21 03:31 Sputum, Induced/Lukens Respiratory Culture - Final 05/23/21 03:31 Mucosa - Nasopharyngeal Respiratory Panel (PCR) - Final 05/23/21 03:30 Urine Catheter - Balderrama Legionella Antigen - Final 05/23/21 03:30 Urine Catheter - Balderrama Streptococcus pneumoniae Antigen (M - Final 05/23/21 02:25 Mucosa - Nose SARS-CoV-2 Antigen (Rapid) - Final Physical Exam Const alert and no apparent distress General Appearance: cooperative Nutritional Appearance: morbidly obese HEENT normocephalic and head/scalp atraumatic Eyes PERRL, EOMs intact bilaterally and conjunctivae normal Neck supple General: trachea midline Resp no use of accessory muscles Auscultation: diminished lung sounds; Negative for rales, rhonchi or wheezes Cardio regular rate and regular rhythm GI normal to inspection, nondistended, normoactive bowel sounds Extremity no clubbing, cyanosis or edema Skin no rashes or lesions noted Neuro CN's II-XII intact bilaterally and moves all extremities Psych Mood & Affect: anxious Charges/Coding Visit Charges Inpatient E&M: 22376 Subs Hosp L3
[2021-05-26] MEDS: Ipratropium/Albuterol Sulfate 3 ML AMPUL.NEB INHALATION ×5 (07:34→22:47)
[2021-05-26] MEDS: Enoxaparin 40 MG/0.4 ML Syringe SC (07:52)
[2021-05-26] MEDS: Insulin Lispro 100 UNIT/ML INSULN.PEN SC ×4 (07:53→21:04)
[2021-05-26] MEDS: hydroCHLOROthiazide 25 MG Tablet PO (07:53)
[2021-05-26] MEDS: amLODIPine 10 MG Tablet PO (07:54)
[2021-05-26] MEDS: Gabapentin 600 MG Tablet 1200 MG PO ×2 (07:54→21:01)
[2021-05-26] MEDS: Lisinopril 40 MG Tablet PO (07:54)
[2021-05-26] MEDS: Pantoprazole Sodium 40 MG Tablet PO (07:55)
[2021-05-26] MEDS: busPIRone 5 MG Tablet 10 MG PO ×2 (07:55→21:03)
[2021-05-26] MEDS: Nystatin Powder 15gm Bottle 1 APPLIC TOPICAL ×2 (07:58→21:03)
[2021-05-26] MEDS: Senna/Docusate Sodium 1 Tablet PO ×2 (07:59→21:09)
[2021-05-26] MEDS: Budesonide Respules 0.5 MG/2 ML AMPUL.NEB. INHALATION ×2 (11:02→18:49)
[2021-05-26 11:30] LABS: Bedside Glucose 366 mg/dL (70-110)
[2021-05-26] MEDS: Acetaminophen 325 MG Tablet 650 MG PO ×2 (15:02→19:26)
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
[2021-05-26 17:16] LABS: Bedside Glucose 248 mg/dL (70-110)
--- NOTE | 2021-05-26 17:56 | PN.HOSP_ITS ---
Subjective Subjective Patient was seen and examined today, she appears stable for transfer from the ICU to PCU. Patient still requiring nasal cannula oxygen Objective Data Objective Data Vital Signs: Vital Signs Temp Pulse Resp BP Pulse Ox 98.3 F 85 18 135/96 H 93 05/26/21 17:52 05/26/21 17:52 05/26/21 17:52 05/26/21 17:52 05/26/21 17:52 Oxygen Flow Rate (L/min) 4 Oxygen Delivery Method Nasal Cannula Weight: 109.1 kg Body Mass Index (BMI) 39.1 Intake & Output: Intake and Output for Last 24 Hours 05/24/21 05/25/21 05/26/21 23:59 23:59 23:59 Intake Total 4316.30 / 4466.10 2616.27 / 2616.27 1040 / 1040 Output Total 1240 / 1240 1250 / 1250 2475 / 2475 Balance 3076.30 / 3226.10 1366.27 / 1366.27 -1435 / -1435 Lab / Micro Data Result Diagrams: 05/26/21 05:15 05/26/21 05:15 Labs: Laboratory Results - last 24 hr 05/25/21 05/26/21 05/26/21 21:33 05:15 05:15 WBC 14.0 H RBC 6.33 H Hgb 17.8 H Hct 60.5 H MCV 95.6 MCH 28.1 MCHC 29.4 L RDW Std Deviation 48.9 H RDW Coeff of Marcy 14.4 Plt Count 227 MPV 11.3 Immature Gran % (Auto) 0.400 Neut % (Auto) 77.1 H Lymph % (Auto) 10.8 L Hopkins % (Auto) 11.4 H Eos % (Auto) 0.1 Baso % (Auto) 0.2 Absolute Neuts (auto) 10.8 H Absolute Lymphs (auto) 1.51 Nucleated RBC % [address] Review May foll Sodium 136 Potassium 4.1 Chloride 94 L Carbon Dioxide 39.0 H Anion Gap 3 L BUN 26 H Creatinine 0.73 Estim Creat Clear Calc 80.50 Est GFR (MDRD) Af Amer 109 Est GFR (MDRD) Non-Af 90 BUN/Creatinine Ratio 35.6 H Glucose 313 H Calcium 8.8 Total Bilirubin 0.60 AST 47 H ALT 538 H Alkaline Phosphatase 154 H Total Protein 6.7 Albumin 3.0 L Globulin 3.7 Albumin/Globulin Ratio 0.8 L POC Glucose 311 H 05/26/21 05/26/21 11:18 17:06 WBC RBC Hgb Hct MCV MCH MCHC RDW Std Deviation RDW Coeff of Marcy Plt Count MPV Immature Gran % (Auto) Neut % (Auto) Lymph % (Auto) Hopkins % (Auto) Eos % (Auto) Baso % (Auto) Absolute Neuts (auto) Absolute Lymphs (auto) Nucleated RBC % Diff Path Review Sodium Potassium Chloride Carbon Dioxide Anion Gap BUN Creatinine Estim Creat Clear Calc Est GFR (MDRD) Af Amer Est GFR (MDRD) Non-Af BUN/Creatinine Ratio Glucose Calcium Total Bilirubin AST ALT Alkaline Phosphatase Total Protein Albumin Globulin Albumin/Globulin Ratio POC Glucose 366 H 248 H Micro: Microbiology 05/23/21 03:30 Urine Catheter - Catheter Urine Culture - Final Culture exhibits no growth. 05/23/21 03:31 Sputum, Induced/Lukens Gram Stain - Final 05/23/21 03:31 Sputum, Induced/Lukens Respiratory Culture - Final 05/23/21 03:31 Mucosa - Nasopharyngeal Respiratory Panel (PCR) - Final 05/23/21 03:30 Urine Catheter - Balderrama Legionella Antigen - Final 05/23/21 03:30 Urine Catheter - Balderrama Streptococcus pneumoniae Antigen (M - Final 05/23/21 02:25 Mucosa - Nose SARS-CoV-2 Antigen (Rapid) - Final Physical Exam Const alert, oriented x3 and no apparent distress Constitutional Narrative: Patient has morbid obesity General Appearance: cooperative, well kempt and well developed Orientation / Consciousness: awake, oriented to person, oriented to place and oriented to time HEENT normocephalic, head/scalp atraumatic and moist oral mucous membranes Head and Scalp: normocephalic Eyes PERRL, EOMs intact bilaterally and conjunctivae normal Neck nuchal rigidity, supple, no JVD, thyroid normal and no carotid bruits General: trachea midline Resp normal respiratory effort, no retractions, no use of accessory muscles and clear to auscultation bilaterally Auscultation: Negative for rales, rhonchi or wheezes Cardio regular rate, regular rhythm, S1 normal heart sound, S2 normal heart sound, no murmurs, no rub, no gallops and no clicks GI normal to inspection, nondistended, normoactive bowel sounds, soft to palpation, non-tender and non-distended Extremity normal to inspection and no clubbing, cyanosis or edema Skin no rashes or lesions noted, no wounds, skin turgor normal and no jaundice General Skin Exam: no breakdown Neuro oriented x3, CN's II-XII intact bilaterally, no focal motor deficits and no sensory deficits noted Neuro Narrative: Patient is sedated and on the ventilator Sensorium / Orientation: awake and alert Speech: speech normal Psych thought process normal and affect normal Psych Narrative: Patient is sedated and on the ventilator Assessment & Plan Assessment/Plan (1) Respiratory failure: PLAN: (1) Respiratory failure: PLAN: 1. Acute combined respiratory failure-exact etiology unclear at this point, pulmonary medicine is participating in the patient's care at this time, patient is currently on 4 L via nasal cannula at this time #2 chronic obstructive pulmonary disease #3 type 2 diabetes #4 essential hypertension #5 GERD #6 obesity Charges/Coding Visit Charges Inpatient E&M: 61528 Subs Hosp L2
[2021-05-26] MEDS: Atorvastatin Calcium 10 MG Tablet PO (21:03)
[2021-05-26] MEDS: 0.9% Saline Lock 10 ML Syringe IV (21:03)
[2021-05-26 21:40] LABS: Bedside Glucose 265 mg/dL (70-110)
[2021-05-27] VITALS (17 sets, daily range): BP systolic 106–162; BP diastolic 54–91; PULSE 79–98; RESP 16–24; TEMP 36.8–37.3; O2SAT 89–92
[2021-05-27] MEDS: Acetaminophen 325 MG Tablet 650 MG PO ×3 (02:20→22:24)
[2021-05-27] MEDS: Ipratropium/Albuterol Sulfate 3 ML AMPUL.NEB INHALATION ×5 (02:47→19:35)
[2021-05-27 05:53] LABS: Absolute Lymphocyte Count 1.46 X10^3/uL (0.83-4.51); Absolute Neutrophil Count 7.7 X10^3/uL (2.0-7.7); Basophil# 0.01 X10^3/uL; Basophil% 0.1 % (0-1); Eosinophil# 0.17 X10^3/uL; Eosinophils% 1.6 % (0-5); Hemoglobin 17.5 g/dL (12.0-15.0); Lymphocyte # 1.46 X10^3/ul (0.83-4.51); Lymphocyte % 13.9 % (19-41); Mean Corp Hgb Conc 29.9 g/dL (32-36); Mean Corpuscular Hgb 28.3 pg (27.0-32.0); Mean Corpuscular Volume 94.7 fL (81-99); Mean Platelet Vol. 11.8 fl (6.2-12.0); Monocyte# 1.15 X10^3/uL; NRBC Flagged by Analyzer 0 % (0-5); Neutrophil # 7.69 X10^3/uL (2.7-7.7); Neutrophil % 73.2 % (47-70); Platelet Count 225 K/mm3 (150-450); RBC Distribution Width SD 48.3 fl (35.1-43.9); Red Blood Count 6.18 M/mm3 (4.2-5.4); White Blood Count 10.5 K/mm3 (4.4-11.0)
[2021-05-27 06:08] LABS: Hematocrit 58.5 % (37-47)
[2021-05-27 06:34] LABS: ALB/GLOB Ratio 0.8 RATIO (0.9-2.4); AST(SGOT) 29 U/L (15-37); Alanine Aminotransfer ALT/SGPT 321 U/L (13-56); Albumin, Serum 2.4 g/dL (3.2-5.0); Alkaline Phosphatase 117 U/L (45-117); Anion Gap 4 (5-15); BUN 16 mg/dL (7-18); BUN/Creat Ratio 38.6 RATIO (10-20); Calcium,Total 8.6 mg/dL (8.5-10.1); Chloride 97 mmol/L (98-107); Creatinine, Serum 0.41 mg/dL (0.55-1.02); EST Glomerular Filtration Rate 173 mL/min (>60); Est Glom Filt Rate - Afr Amer 209 mL/min (>60); Estimated Creatinine Clearance 143.33 ml/min; Globulin 3.2 g/dL (2.2-4.2); Glucose 142 mg/dL (74-106); Potassium 4.2 mmol/L (3.5-5.1); Protein, Total 5.6 g/dL (6.4-8.2); Sodium Level 139 mmol/L (136-145)
[2021-05-27] MEDS: Budesonide Respules 0.5 MG/2 ML AMPUL.NEB. INHALATION ×2 (06:45→19:40)
[2021-05-27] MEDS: Insulin Lispro 100 UNIT/ML INSULN.PEN SC ×4 (06:52→22:34)
[2021-05-27] MEDS: 0.9% Saline Lock 10 ML Syringe IV (06:57)
[2021-05-27] MEDS: Ondansetron 4 MG/2 ML Vial IV (06:57)
--- NOTE | 2021-05-27 07:05 | PCM.PN.INT ---
Assessment & Plan Assessment/Plan (1) Acute on chronic respiratory failure with hypoxia and hypercapnia: PLAN: RECOMMENDATIONS: 1. Continue to wean supplemental oxygen to maintain saturations at or above 90%. 2. Continue scheduled bronchodilators and budesonide. 3. Encourage incentive spirometer use and mobilize patient as tolerated. 4. Perform walking oximetry study prior to consideration for discharge home. IMPRESSIONS: 1. Acute on chronic combined respiratory failure While the patient does have a reported history of both COPD and asthma, she has never completed pulmonary function testing previously. She does have an extensive smoking history, along with a history of medical noncompliance and has poor outpatient follow-up. Infectious work-up was unrevealing. I do suspect that her exacerbation was likely precipitated by outpatient noncompliance with prescribed medication therapy and supplemental oxygen. The patient was able to be extubated on May 25. We will plan to continue scheduled bronchodilators and inhaled corticosteroid. Continue to wean supplemental oxygen as tolerated. Encourage incentive spirometer use and mobilize patient as tolerated. Perform walking oximetry study prior to consideration for discharge home. I would recommend that the patient follow-up in the pulmonary medicine clinic 2 weeks after discharge. 2. Heart failure with preserved ejection fraction/pulmonary hypertension Continue outpatient cardiac medications. 3. Clinical concern for underlying sleep disordered breathing The patient needs to follow-up with the pulmonary medicine clinic so that a diagnostic polysomnogram can be completed. In the interim, empiric utilization of BIPAP with naps and nightly can be considered. 4. Polycythemia Clinical concern for chronic hypoxemia due to outpatient noncompliance with supplemental oxygen. 5. Acute hepatitis The patient has elevated transaminase levels of unclear etiology. Liver ultrasound revealed fatty infiltration without any other acute abnormality identified. Liver function is improving without intervention. 6. Continuous tobacco dependency/diabetes mellitus/morbid obesity/history of medical noncompliance/chronic pain syndrome Complicates care, management, recovery and prognosis. Continue home medications as indicated. This note was generated with [employer] dictation software. It may contain incorrect words, spelling, and punctuation that were not noted in checking the note before signing. Subjective Subjective The patient was seen and examined at the bedside this morning. Events from the last 24 hours have been reviewed. The patient is afebrile, hemodynamically stable and maintaining appropriate oxygen saturations on 5 L/min via nasal cannula. The patient did report the development of a headache overnight after she ambulated to the bathroom. She does report some nausea this morning, but denies any emesis. She does still report some residual shortness of breath and nonproductive cough. She is currently receiving an aerosol treatment. Objective Data Objective Data The patient's most recent lab work, culture data and imaging studies have all been personally reviewed. Surface echocardiogram from February 2019 revealed moderate to severe concentric LVH with an ejection fraction of 65% and evidence of diastolic dysfunction. Right ventricular systolic pressure was estimated to be 45 mmHg. Liver ultrasound revealed fatty infiltration. Rapid coronavirus antigen testing was negative. Strep and urine Legionella antigens were negative. Blood and urine cultures have shown no growth to date. Sputum culture has not demonstrated any growth to date. Vital Signs: Vital Signs Temp Pulse Resp BP Pulse Ox 98.3 F 79 18 162/91 H 92 05/27/21 02:30 05/27/21 03:00 05/27/21 02:47 05/27/21 02:30 05/27/21 02:30 Oxygen Flow Rate (L/min) 6 Oxygen Delivery Method Nasal Cannula Weight: 237 lb 14.06 oz Body Mass Index (BMI) 39.1 Intake & Output: Intake and Output for Last 24 Hours 05/25/21 05/26/21 05/27/21 23:59 23:59 23:59 Intake Total 2616.27 / 2616.27 1040 / 1260 220 / 220 Output Total 1250 / 1250 3025 / 3150 125 / 125 Balance 1366.27 / 1366.27 -1985 / -1890 95 / 95 Lab / Micro Data Attestation: I reviewed the patient's lab results. Result Diagrams: 05/27/21 04:45 05/27/21 04:45 Labs: Laboratory Results - last 24 hr 05/26/21 05/26/21 05/26/21 11:18 17:06 20:59 WBC RBC Hgb Hct MCV MCH MCHC RDW Std Deviation RDW Coeff of Marcy Plt Count MPV Immature Gran % (Auto) Neut % (Auto) Lymph % (Auto) Grundy % (Auto) Eos % (Auto) Baso % (Auto) Absolute Neuts (auto) Absolute Lymphs (auto) Nucleated RBC % Sodium Potassium Chloride Carbon Dioxide Anion Gap BUN Creatinine Estim Creat Clear Calc Est GFR (MDRD) Af Amer Est GFR (MDRD) Non-Af BUN/Creatinine Ratio Glucose Calcium Total Bilirubin AST ALT Alkaline Phosphatase Total Protein Albumin Globulin Albumin/Globulin Ratio POC Glucose 366 H 248 H 265 H 05/27/21 05/27/21 04:45 04:45 WBC 10.5 RBC 6.18 H Hgb 17.5 H Hct 58.5 H MCV 94.7 MCH 28.3 MCHC 29.9 L RDW Std Deviation 48.3 H RDW Coeff of Marcy 14.0 Plt Count 225 MPV 11.8 Immature Gran % (Auto) 0.200 Neut % (Auto) 73.2 H Lymph % (Auto) 13.9 L Grundy % (Auto) 11.0 H Eos % (Auto) 1.6 Baso % (Auto) 0.1 Absolute Neuts (auto) 7.7 Absolute Lymphs (auto) 1.46 Nucleated RBC % 0 Sodium 139 Potassium 4.2 Chloride 97 L Carbon Dioxide 38.0 H Anion Gap 4 L BUN 16 Creatinine 0.41 L Estim Creat Clear Calc 143.33 Est GFR (MDRD) Af Amer 209 Est GFR (MDRD) Non-Af 173 BUN/Creatinine Ratio 38.6 H Glucose 142 H Calcium 8.6 Total Bilirubin 0.40 AST 29 ALT 321 H Alkaline Phosphatase 117 Total Protein 5.6 L Albumin 2.4 L Globulin 3.2 Albumin/Globulin Ratio 0.8 L POC Glucose Micro: Microbiology 05/23/21 03:30 Urine Catheter - Catheter Urine Culture - Final Culture exhibits no growth. 05/23/21 03:31 Sputum, Induced/Lukens Gram Stain - Final 05/23/21 03:31 Sputum, Induced/Lukens Respiratory Culture - Final 05/23/21 03:31 Mucosa - Nasopharyngeal Respiratory Panel (PCR) - Final 05/23/21 03:30 Urine Catheter - Balderrama Legionella Antigen - Final 05/23/21 03:30 Urine Catheter - Balderrama Streptococcus pneumoniae Antigen (M - Final 05/23/21 02:25 Mucosa - Nose SARS-CoV-2 Antigen (Rapid) - Final Physical Exam Const alert and no apparent distress General Appearance: cooperative Nutritional Appearance: morbidly obese HEENT normocephalic, head/scalp atraumatic and moist oral mucous membranes Eyes PERRL, EOMs intact bilaterally and conjunctivae normal Neck supple General: trachea midline Resp no use of accessory muscles Auscultation: wheezes scattered wheezes and diminished lung sounds; Negative for rales or rhonchi Cardio regular rate and regular rhythm GI normal to inspection, nondistended, normoactive bowel sounds Extremity no clubbing, cyanosis or edema Skin no rashes or lesions noted Neuro CN's II-XII intact bilaterally and moves all extremities Psych Mood & Affect: anxious Charges/Coding Visit Charges Inpatient E&M: 89369 Subs Hosp L2
[2021-05-27 07:46] LABS: Bedside Glucose 169 mg/dL (70-110)
[2021-05-27] MEDS: Enoxaparin 40 MG/0.4 ML Syringe SC (08:53)
[2021-05-27] MEDS: busPIRone 5 MG Tablet 10 MG PO ×2 (08:53→22:26)
[2021-05-27] MEDS: Lisinopril 40 MG Tablet PO (08:53)
[2021-05-27] MEDS: Gabapentin 600 MG Tablet 1200 MG PO ×2 (08:53→22:26)
[2021-05-27] MEDS: Nystatin Powder 15gm Bottle 1 APPLIC TOPICAL ×2 (08:54→22:27)
[2021-05-27] MEDS: amLODIPine 10 MG Tablet PO (08:54)
[2021-05-27] MEDS: hydroCHLOROthiazide 25 MG Tablet PO (08:54)
[2021-05-27] MEDS: Pantoprazole Sodium 40 MG Tablet PO (08:55)
--- NOTE | 2021-05-27 10:57 | PN.HOSP_ITS ---
Subjective Subjective Patient was seen and examined today, she required 6 L of oxygen via nasal cannula at rest, patient states she has an oxygen concentrator at home but only uses 3 to 4 L, she is supposed to use it as needed but she states she ends up using it most of the day. Objective Data Objective Data Vital Signs: Vital Signs Temp Pulse Resp BP Pulse Ox 98.7 F 93 18 130/65 H 91 05/27/21 08:51 05/27/21 08:51 05/27/21 08:51 05/27/21 08:51 05/27/21 08:51 Oxygen Flow Rate (L/min) 6 Oxygen Delivery Method Nasal Cannula Weight: 107.9 kg Body Mass Index (BMI) 39.1 Intake & Output: Intake and Output for Last 24 Hours 05/25/21 05/26/21 05/27/21 23:59 23:59 23:59 Intake Total 2616.27 / 2616.27 1040 / 1260 220 / 220 Output Total 1250 / 1250 3025 / 3150 125 / 125 Balance 1366.27 / 1366.27 -1984 / 1890 95 / 95 Lab / Micro Data Result Diagrams: 05/27/21 04:45 05/27/21 04:45 Labs: Laboratory Results - last 24 hr 05/26/21 05/26/21 05/26/21 11:18 17:06 20:59 WBC RBC Hgb Hct MCV MCH MCHC RDW Std Deviation RDW Coeff of Marcy Plt Count MPV Immature Gran % (Auto) Neut % (Auto) Lymph % (Auto) [place] % (Auto) Eos % (Auto) Baso % (Auto) Absolute Neuts (auto) Absolute Lymphs (auto) Nucleated RBC % Sodium Potassium Chloride Carbon Dioxide Anion Gap BUN Creatinine Estim Creat Clear Calc Est GFR (MDRD) Af Amer Est GFR (MDRD) Non-Af BUN/Creatinine Ratio Glucose Calcium Total Bilirubin AST ALT Alkaline Phosphatase Total Protein Albumin Globulin Albumin/Globulin Ratio POC Glucose 366 H 248 H 265 H 05/27/21 05/27/21 05/27/21 04:45 04:45 06:50 WBC 10.5 RBC 6.18 H Hgb 17.5 H Hct 58.5 H MCV 94.7 MCH 28.3 MCHC 29.9 L RDW Std Deviation 48.3 H RDW Coeff of Marcy 14.0 Plt Count 225 MPV 11.8 Immature Gran % (Auto) 0.200 Neut % (Auto) 73.2 H Lymph % (Auto) 13.9 L [place] % (Auto) 11.0 H Eos % (Auto) 1.6 Baso % (Auto) 0.1 Absolute Neuts (auto) 7.7 Absolute Lymphs (auto) 1.46 Nucleated RBC % 0 Sodium 139 Potassium 4.2 Chloride 97 L Carbon Dioxide 38.0 H Anion Gap 4 L BUN 16 Creatinine 0.41 L Estim Creat Clear Calc 143.33 Est GFR (MDRD) Af Amer 209 Est GFR (MDRD) Non-Af 173 BUN/Creatinine Ratio 38.6 H Glucose 142 H Calcium 8.6 Total Bilirubin 0.40 AST 29 ALT 321 H Alkaline Phosphatase 117 Total Protein 5.6 L Albumin 2.4 L Globulin 3.2 Albumin/Globulin Ratio 0.8 L POC Glucose 169 H Micro: Microbiology 05/23/21 03:30 Urine Catheter - Catheter Urine Culture - Final Culture exhibits no growth. 05/23/21 03:31 Sputum, Induced/Lukens Gram Stain - Final 05/23/21 03:31 Sputum, Induced/Lukens Respiratory Culture - Final 05/23/21 03:31 Mucosa - Nasopharyngeal Respiratory Panel (PCR) - Final 05/23/21 03:30 Urine Catheter - Balderrama Legionella Antigen - Final 05/23/21 03:30 Urine Catheter - Balderrama Streptococcus pneumoniae Antigen (M - Final 05/23/21 02:25 Mucosa - Nose SARS-CoV-2 Antigen (Rapid) - Final Physical Exam Const alert, oriented x3 and no apparent distress Exam Limitations: no limitations HEENT head/scalp atraumatic, moist oral mucous membranes and oropharynx normal Head and Scalp: normocephalic Eyes PERRL, EOMs intact bilaterally and conjunctivae normal Neck no lymphadenopathy, supple and no JVD Resp normal respiratory effort, no retractions and no use of accessory muscles Resp Narrative: Breath sounds are distant bilaterally Cardio regular rate, regular rhythm, S1 normal heart sound, S2 normal heart sound, no gallops and no clicks GI normal to inspection, nondistended, normoactive bowel sounds, soft to palpation and non-tender GI Narrative: Patient is morbidly obese Skin no rashes or lesions noted, no wounds, skin turgor normal and no jaundice Neuro oriented x3, CN's II-XII intact bilaterally and no focal motor deficits Sensorium / Orientation: awake and alert Psych affect normal Assessment & Plan Assessment/Plan (1) Shortness of breath: PLAN: 1. Acute on chronic combined respiratory failure-continue present treatment #2 exacerbation of COPD #3 morbid obesity #4 obstructive sleep apnea #5 hyperlipidemia #6 essential hypertension Charges/Coding Visit Charges Inpatient E&M: 62129 Subs Hosp L2
[2021-05-27 12:11] LABS: Bedside Glucose 359 mg/dL (70-110)
[2021-05-27 16:45] LABS: Bedside Glucose 227 mg/dL (70-110)
[2021-05-27] MEDS: Atorvastatin Calcium 10 MG Tablet PO (22:24)
[2021-05-27] MEDS: Senna/Docusate Sodium 1 Tablet PO (22:24)
--- NOTE | 2021-05-27 22:34 | CPS ---
Bipap not set up . Pt refuses to even try bipap. Can not stand it on her face. RN aware.
[2021-05-27 22:45] LABS: Bedside Glucose 249 mg/dL (70-110)
[2021-05-28] VITALS (27 sets, daily range): BP systolic 118–166; BP diastolic 62–90; PULSE 82–98; RESP 18–24; TEMP 36.5–37.1; O2SAT 86–95
[2021-05-28] MEDS: Ipratropium/Albuterol Sulfate 3 ML AMPUL.NEB INHALATION ×5 (03:27→19:38)
[2021-05-28 05:50] LABS: Absolute Lymphocyte Count 1.19 X10^3/uL (0.83-4.51); Absolute Neutrophil Count 6.4 X10^3/uL (2.0-7.7); Basophil# 0.01 X10^3/uL; Basophil% 0.1 % (0-1); Eosinophil# 0.19 X10^3/uL; Eosinophils% 2.1 % (0-5); Hemoglobin 15.9 g/dL (12.0-15.0); Lymphocyte # 1.19 X10^3/ul (0.83-4.51); Lymphocyte % 13.5 % (19-41); Mean Corpuscular Hgb 27.7 pg (27.0-32.0); Mean Corpuscular Volume 98.8 fL (81-99); Mean Platelet Vol. 11.5 fl (6.2-12.0); Monocyte# 1.01 X10^3/uL; Monocyte% 11.4 % (0-10); NRBC Flagged by Analyzer 0 % (0-5); Neutrophil # 6.39 X10^3/uL (2.7-7.7); Neutrophil % 72.3 % (47-70); Platelet Count 239 K/mm3 (150-450); RBC Distribution Width CV 13.8 % (11.6-14.6); RBC Distribution Width SD 49.9 fl (35.1-43.9); Red Blood Count 5.74 M/mm3 (4.2-5.4); White Blood Count 8.8 K/mm3 (4.4-11.0)
[2021-05-28 05:53] LABS: Hematocrit 56.7 % (37-47)
[2021-05-28 06:14] LABS: ALB/GLOB Ratio 0.9 RATIO (0.9-2.4); AST(SGOT) 24 U/L (15-37); Alanine Aminotransfer ALT/SGPT 218 U/L (13-56); Albumin, Serum 2.5 g/dL (3.2-5.0); Alkaline Phosphatase 118 U/L (45-117); Anion Gap 1 (5-15); BUN 14 mg/dL (7-18); BUN/Creat Ratio 29.5 RATIO (10-20); Calcium,Total 8.3 mg/dL (8.5-10.1); Chloride 92 mmol/L (98-107); Creatinine, Serum 0.48 mg/dL (0.55-1.02); EST Glomerular Filtration Rate 148 mL/min (>60); Est Glom Filt Rate - Afr Amer 179 mL/min (>60); Estimated Creatinine Clearance 122.43 ml/min; Globulin 2.9 g/dL (2.2-4.2); Glucose 195 mg/dL (74-106); Potassium 4.1 mmol/L (3.5-5.1); Protein, Total 5.4 g/dL (6.4-8.2); Sodium Level 138 mmol/L (136-145)
[2021-05-28] MEDS: Insulin Lispro 100 UNIT/ML INSULN.PEN SC ×4 (06:42→21:16)
[2021-05-28 06:50] LABS: Bedside Glucose 187 mg/dL (70-110)
[2021-05-28] MEDS: Budesonide Respules 0.5 MG/2 ML AMPUL.NEB. INHALATION ×2 (06:51→19:38)
[2021-05-28] MEDS: Senna/Docusate Sodium 1 Tablet PO (09:33)
[2021-05-28] MEDS: Lisinopril 40 MG Tablet PO (09:33)
[2021-05-28] MEDS: busPIRone 5 MG Tablet 10 MG PO (09:34)
[2021-05-28] MEDS: Pantoprazole Sodium 40 MG Tablet PO (09:34)
[2021-05-28] MEDS: hydroCHLOROthiazide 25 MG Tablet PO (09:34)
[2021-05-28] MEDS: amLODIPine 10 MG Tablet PO (09:34)
[2021-05-28] MEDS: Nystatin Powder 15gm Bottle 1 APPLIC TOPICAL ×2 (09:35→21:19)
[2021-05-28] MEDS: Enoxaparin 40 MG/0.4 ML Syringe SC (09:35)
--- NOTE | 2021-05-28 09:46 | PCM.PN.INT ---
Assessment & Plan Assessment/Plan (1) Acute on chronic respiratory failure with hypoxia and hypercapnia: PLAN: RECOMMENDATIONS: 1. Continue to wean supplemental oxygen to maintain saturations at or above 90%. 2. Continue scheduled bronchodilators and budesonide. 3. Encourage incentive spirometer use and mobilize patient as tolerated. 4. Initiate diuretic therapy 5. Possibly transition to prednisone if not improving in 24 hours IMPRESSIONS: 1. Acute on chronic combined respiratory failure While the patient does have a reported history of both COPD and asthma, she has never completed pulmonary function testing previously. She does have an extensive smoking history, along with a history of medical noncompliance and has poor outpatient follow-up. Infectious work-up was unrevealing. I do suspect that her exacerbation was likely precipitated by outpatient noncompliance with prescribed medication therapy and supplemental oxygen. The patient was able to be extubated on May 25. Patient does have some lower extremity edema. Unclear if this is secondary to cor pulmonale, but given increased oxygen demands will address with diuretic therapy. Perform walking oximetry study prior to consideration for discharge home. I would recommend that the patient follow-up in the pulmonary medicine clinic 2 weeks after discharge. 2. Heart failure with preserved ejection fraction/pulmonary hypertension Continue outpatient cardiac medications. 3. Clinical concern for underlying sleep disordered breathing The patient needs to follow-up with the pulmonary medicine clinic so that a diagnostic polysomnogram can be completed. In the interim, empiric utilization of BIPAP with naps and nightly can be considered. 4. Polycythemia Clinical concern for chronic hypoxemia due to outpatient noncompliance with supplemental oxygen. 5. Acute hepatitis The patient has elevated transaminase levels of unclear etiology. Liver ultrasound revealed fatty infiltration without any other acute abnormality identified. Liver function is improving without intervention. Unclear if this may be secondary to elevated hepatic pressures associated with cor pulmonale. 6. Continuous tobacco dependency/diabetes mellitus/morbid obesity/history of medical noncompliance/chronic pain syndrome Complicates care, management, recovery and prognosis. Continue home medications as indicated. This note was generated with [employer] dictation software. It may contain incorrect words, spelling, and punctuation that were not noted in checking the note before signing. Subjective Subjective Nursing reports significant concerns of patient pulling off her oxygen overnight. Patient was found with significant desaturation. No bradycardia or hypotension was noted. Patient states that she only feels tired. Patient has had increased oxygen demands over the last 48 hours. Objective Data Objective Data Vital Signs: Vital Signs Temp Pulse Resp BP Pulse Ox 36.9 C 98 18 155/75 H 91 05/28/21 09:26 05/28/21 09:26 05/28/21 09:26 05/28/21 09:26 05/28/21 09:26 Oxygen Flow Rate (L/min) 6 Oxygen Delivery Method Nasal Cannula Weight: 109.7 kg Body Mass Index (BMI) 39.1 Intake & Output: Intake and Output for Last 24 Hours 05/26/21 05/27/21 05/28/21 23:59 23:59 23:59 Intake Total 1040 / 1260 220 / 220 Output Total 3025 / 3150 125 / 125 Balance -1984 / 95 / 95 Lab / Micro Data Result Diagrams: 05/28/21 05:18 05/28/21 05:18 Labs: Laboratory Results - last 24 hr 05/27/21 05/27/21 05/27/21 12:03 16:29 22:34 WBC RBC Hgb Hct MCV MCH MCHC RDW Std Deviation RDW Coeff of Marcy Plt Count MPV Immature Gran % (Auto) Neut % (Auto) Lymph % (Auto) [place] % (Auto) Eos % (Auto) Baso % (Auto) Absolute Neuts (auto) Absolute Lymphs (auto) Nucleated RBC % Sodium Potassium Chloride Carbon Dioxide Anion Gap BUN Creatinine Estim Creat Clear Calc Est GFR (MDRD) Af Amer Est GFR (MDRD) Non-Af BUN/Creatinine Ratio Glucose Calcium Total Bilirubin AST ALT Alkaline Phosphatase Total Protein Albumin Globulin Albumin/Globulin Ratio POC Glucose 359 H 227 H 249 H 05/28/21 05/28/21 05/28/21 05:18 05:18 06:40 WBC 8.8 RBC 5.74 H Hgb 15.9 H Hct 56.7 H MCV 98.8 MCH 27.7 MCHC 28.0 L D RDW Std Deviation 49.9 H RDW Coeff of Marcy 13.8 Plt Count 239 MPV 11.5 Immature Gran % (Auto) 0.600 Neut % (Auto) 72.3 H Lymph % (Auto) 13.5 L [place] % (Auto) 11.4 H Eos % (Auto) 2.1 Baso % (Auto) 0.1 Absolute Neuts (auto) 6.4 Absolute Lymphs (auto) 1.19 Nucleated RBC % 0 Sodium 138 Potassium 4.1 Chloride 92 L Carbon Dioxide 45.0 H Anion Gap 1 L BUN 14 Creatinine 0.48 L Estim Creat Clear Calc 122.43 Est GFR (MDRD) Af Amer 179 Est GFR (MDRD) Non-Af 148 BUN/Creatinine Ratio 29.5 H Glucose 195 H Calcium 8.3 L Total Bilirubin 0.30 AST 24 ALT 218 H Alkaline Phosphatase 118 H Total Protein 5.4 L Albumin 2.5 L Globulin 2.9 Albumin/Globulin Ratio 0.9 POC Glucose 187 H Micro: Microbiology 05/23/21 02:25 Blood Culture (Wb) - Right Hand Blood Culture - Final No growth in 5 days. 05/23/21 03:30 Urine Catheter - Catheter Urine Culture - Final Culture exhibits no growth. 05/23/21 03:31 Sputum, Induced/Lukens Gram Stain - Final 05/23/21 03:31 Sputum, Induced/Lukens Respiratory Culture - Final 05/23/21 03:31 Mucosa - Nasopharyngeal Respiratory Panel (PCR) - Final 05/23/21 03:30 Urine Catheter - Balderrama Legionella Antigen - Final 05/23/21 03:30 Urine Catheter - Balderrama Streptococcus pneumoniae Antigen (M - Final 05/23/21 02:25 Mucosa - Nose SARS-CoV-2 Antigen (Rapid) - Final Physical Exam Const alert, oriented x3 and no apparent distress General Appearance: cooperative and well developed Nutritional Appearance: morbidly obese HEENT normocephalic, head/scalp atraumatic and moist oral mucous membranes Eyes PERRL and EOMs intact bilaterally Neck full ROM and no lymphadenopathy Chest inspection of chest normal Resp normal respiratory effort and no use of accessory muscles Effort and Inspection: symmetric chest movement and prolonged expiratory phase Auscultation: wheezes scattered wheezes and diminished lung sounds; Negative for rales or rhonchi Percussion: Negative for dullness Cardio regular rate, regular rhythm, S1 normal heart sound, S2 normal heart sound, no murmurs, no rub and no gallops GI normal to inspection, nondistended, normoactive bowel sounds no CVA tenderness Extremity General Extremity: edema; Negative for clubbing or cyanosis Skin no rashes or lesions noted General Skin Exam: erythema Neuro oriented x3, CN's II-XII intact bilaterally, moves all extremities and no focal motor deficits Psych cooperative and affect normal Charges/Coding Visit Charges Inpatient E&M: 94727 Subs Hosp L3
[2021-05-28] MEDS: Furosemide 20 MG Tablet PO ×2 (10:07→16:48)
[2021-05-28] MEDS: Gabapentin 600 MG Tablet 1200 MG PO (10:08)
[2021-05-28 11:05] LABS: Bedside Glucose 304 mg/dL (70-110)
--- NOTE | 2021-05-28 11:26 | CPS ---
pt took off o2. was called in by RN. pt was tobar and breathing about 24-26 times a min. pt stated she took her o2 off because she was paniking, once tx was over pt color was better and she was breathing 20-22 times a minute. Rn stated he was going to see if we could get a cont pulse ox set up. placed one on pt.
--- NOTE | 2021-05-28 11:54 | PN.HOSP_ITS ---
Hospitalist Note Subjective Patient seen and examined. She still complains of feeling short of breath; she was quite lethargic. She had no other complaints. Review of systems is otherwise negative. She has remained hemodynamically stable. O/E: Vitals: [place]-92, RR-22, and she is saturating at 88% on 9L of oxygen. Physical examination General: Awake, lethargic. Skin: Normal color, normal turgor, no icterus, no cyanosis. HEENT: PERRLA, dry MM, Lungs: bilateral wheezing in all lung [place], with few crackles. On 9L of oxygen, tachycardic Heart: normal sinus rhythm, no murmurs. Abdomen: Soft, morbidly obese, no tenderness to palpation, no guarding or rebound tenderness Extremities: No cyanosis, clubbing, or edema. Neurological: awake, lethargic, moves all limbs spontaneously. Psychiatric: flat affect, lethargic Assessment and plan #Acute metabolic encephalopathy due to acute on chronic hypoxic and hypercapnic respiratory failure from COPD exacerbation * patient now requiring 6L of oxygen * check ABG * breathing treatment with bronchodilators * titrate oxyen to maintain sats >90% * consider BIPAP * #Hypertension: on lisinopril, amlodipine and prn hydralazine #Hyperlipidemia: on statin #type 2 diabetes mellitus with peripheral neuropathy * on insulin * ISS. Accuchecks ACHS * on gabapentin * #CARSON: unable to tolerate BIPAP #GERD: on PPI #Morbid obesity * BMI is 41. Complicates acute care, expected recovery and prognosis. * DVT prophylaxis: lovegerrix Visit Charges Inpatient E&M: 20165 Subs Hosp L3
--- NOTE | 2021-05-28 11:54 | PCM.HOSP.N ---
Hospitalist Note Subjective Patient seen and examined. She still complains of feeling short of breath; she was quite lethargic. She had no other complaints. Review of systems is otherwise negative. She has remained hemodynamically stable. O/E: Vitals: [place]-92, RR-22, and she is saturating at 88% on 9L of oxygen. Physical examination General: Awake, lethargic. Skin: Normal color, normal turgor, no icterus, no cyanosis. HEENT: PERRLA, dry MM, Lungs: bilateral wheezing in all lung crafword, with few crackles. On 9L of oxygen, tachycardic Heart: normal sinus rhythm, no murmurs. Abdomen: Soft, morbidly obese, no tenderness to palpation, no guarding or rebound tenderness Extremities: No cyanosis, clubbing, or edema. Neurological: awake, lethargic, moves all limbs spontaneously. Psychiatric: flat affect, lethargic Assessment and plan #Acute metabolic encephalopathy due to acute on chronic hypoxic and hypercapnic respiratory failure from COPD exacerbation patient now requiring 6L of oxygen check ABG breathing treatment with bronchodilators titrate oxyen to maintain sats >90% consider BIPAP #Hypertension: on lisinopril, amlodipine and prn hydralazine #Hyperlipidemia: on statin #type 2 diabetes mellitus with peripheral neuropathy on insulin ISS. Accuchecks ACHS on gabapentin #CARSON: unable to tolerate BIPAP #GERD: on PPI #Morbid obesity BMI is 41. Complicates acute care, expected recovery and prognosis. DVT prophylaxis: lovenox Visit Charges Inpatient E&M: 23790 Subs Hosp L3
--- NOTE | 2021-05-28 12:47 | CT_ITS ---
STUDY: CTA CHEST REASON FOR EXAM: Female, 50 years old. sob RADIATION DOSAGE (If Supplied By Facility): CTDIvol = ( 12.63 ) mGy, DLP = ( 502.92 ) mGycm TECHNIQUE: The examination was performed with the intravenous administration of IV 100mL Isovue-370. Post-processing of the angiographic images was performed, with multiplanar reformation and 3D reconstruction. Individualized dose optimization techniques were used for this CT. COMPARISON: None. FINDINGS: Normal enhancement of the main pulmonary artery and right and left pulmonary arteries. Normal enhancement of the bilateral peripheral pulmonary arteries. There is no demonstrated pulmonary embolism. Normal thoracic aorta and visualized great vessels. There is no demonstrated aortic dissection. Normal heart and pericardium. Normal mediastinum. Normal hilar regions. Normal visualized trachea and bronchi. The lungs are well expanded. Normal pulmonary parenchyma. Small bilateral pleural effusions with bibasilar atelectasis. Normal chest wall structures. Normal osseous structures. Normal visualized upper abdomen. CT/CTA Chest W/WO Contrast IMPRESSION: No CT evidence of pulmonary embolism. Small bilateral pleural effusions with some bibasilar atelectasis. Electronically Signed: Eugene Villeda MD at 17:46 EDT Tel , Service support ,
[2021-05-28 13:06] LABS: Base Excess 18 mmol/L (-2 to +2); Bicarbonate 43.1 mmol/L (22-26); Blood Gas Specimen Type ART; O2 Delivery Device Cannula; PO2 54 mmHG (75-100); SITE R Radial; SO2 84 % (95-99); Total Carbon Dioxide 46 mmol/L; pCO2 76.1 mmHg (35-45); pH 7.36 (7.35-7.45)
--- NOTE | 2021-05-28 15:28 | CPS ---
Rn took pt off of bipap. pt wanted a drink.
[2021-05-28] MEDS: Acetaminophen 325 MG Tablet 650 MG PO (16:55)
[2021-05-28 17:11] LABS: Bedside Glucose 216 mg/dL (70-110)
[2021-05-28] MEDS: LORazepam 1 MG Tablet PO (19:19)
[2021-05-28 21:55] LABS: Bedside Glucose 242 mg/dL (70-110)
--- NOTE | 2021-05-28 23:50 | NURSING ---
Pt woke up ripped bipap mask off. Pt agitated/combative and refusing to wear bipap or nasal cannula at this time. Pts sats down to 81% on ra, lips blue in color, pt c/o feeling poorly and wants us to just leave her alone. md aware, orders given for haldol iv at this time. Will attempt to place pt back on bipap once pt allows.
[2021-05-29] VITALS (36 sets, daily range): BP systolic 111–166; BP diastolic 72–106; PULSE 80–103; RESP 17–28; TEMP 36.6–36.8; O2SAT 88–98
[2021-05-29] MEDS: Ipratropium/Albuterol Sulfate 3 ML AMPUL.NEB INHALATION ×4 (00:02→15:36)
[2021-05-29] MEDS: Haloperidol Lactate 5 MG/ML Vial 4 MG IV (00:11)
[2021-05-29] MEDS: 0.9% Saline Lock 10 ML Syringe IV ×3 (00:16→17:03)
[2021-05-29 01:26] LABS: Blood Gas Specimen Type ART
[2021-05-29 01:27] LABS: Allen Test POS; SITE R RADIAL
[2021-05-29 01:28] LABS: O2 Delivery Device Bi Pap
[2021-05-29 01:29] LABS: EPAP 8; FI02 50; IPAP 15
[2021-05-29 01:30] LABS: Time Given 2232
[2021-05-29 01:32] LABS: Bicarbonate 53.7 mmol/L (22-26); Comment 15/8; PO2 64 mmHG (75-100); pCO2 71.7 mmHg (35-45); pH 7.48 (7.35-7.45)
[2021-05-29 01:33] LABS: Base Excess > 30 mmol/L (-2 to +2)
[2021-05-29 01:35] LABS: Total Carbon Dioxide > 50 mmol/L
[2021-05-29 01:44] LABS: SO2 92 % (95-99)
[2021-05-29 05:30] LABS: Absolute Lymphocyte Count 1.52 X10^3/uL (0.83-4.51); Absolute Neutrophil Count 7.4 X10^3/uL (2.0-7.7); Basophil# 0.03 X10^3/uL; Basophil% 0.3 % (0-1); Hematocrit 55.6 % (37-47); Hemoglobin 16.4 g/dL (12.0-15.0); Lymphocyte # 1.52 X10^3/ul (0.83-4.51); Lymphocyte % 14.9 % (19-41); Mean Corp Hgb Conc 29.5 g/dL (32-36); Mean Corpuscular Hgb 28.1 pg (27.0-32.0); Mean Corpuscular Volume 95.4 fL (81-99); Mean Platelet Vol. 11.7 fl (6.2-12.0); Monocyte# 0.98 X10^3/uL; Monocyte% 9.6 % (0-10); NRBC Flagged by Analyzer 0 % (0-5); Neutrophil # 7.41 X10^3/uL (2.7-7.7); Neutrophil % 72.8 % (47-70); POSITIVE COUNT YES; Platelet Count 194 K/mm3 (150-450); RBC Distribution Width CV 13.6 % (11.6-14.6); RBC Distribution Width SD 47.8 fl (35.1-43.9); Red Blood Count 5.83 M/mm3 (4.2-5.4); White Blood Count 10.2 K/mm3 (4.4-11.0)
[2021-05-29 05:47] LABS: ALB/GLOB Ratio 0.4 RATIO (0.9-2.4); AST(SGOT) 51 U/L (15-37); Alanine Aminotransfer ALT/SGPT 165 U/L (13-56); Albumin, Serum 1.6 g/dL (3.2-5.0); Alkaline Phosphatase 100 U/L (45-117); Anion Gap 1 (5-15); BUN 13 mg/dL (7-18); BUN/Creat Ratio 36.6 RATIO (10-20); Calcium,Total 8.5 mg/dL (8.5-10.1); Chloride 89 mmol/L (98-107); Creatinine, Serum 0.36 mg/dL (0.55-1.02); EST Glomerular Filtration Rate 207 mL/min (>60); Est Glom Filt Rate - Afr Amer 250 mL/min (>60); Estimated Creatinine Clearance 163.23 ml/min; Glucose 133 mg/dL (74-106); Potassium 4.3 mmol/L (3.5-5.1); Protein, Total 5.6 g/dL (6.4-8.2); Sodium Level 132 mmol/L (136-145)
[2021-05-29 06:51] LABS: Bedside Glucose 138 mg/dL (70-110)
[2021-05-29] MEDS: Budesonide Respules 0.5 MG/2 ML AMPUL.NEB. INHALATION (06:55)
--- NOTE | 2021-05-29 07:48 | PN.CC_ITS ---
Assessment & Plan Assessment/Plan (1) Acute on chronic respiratory failure with hypoxia and hypercapnia: PLAN: RECOMMENDATIONS: 1. Continue to wean supplemental oxygen to maintain saturations at or above 90%. 2. Continue scheduled bronchodilators. Transition budesonide to prednisone 3. Encourage incentive spirometer use and mobilize patient as tolerated. 4. Increase diuretic therapy 5. Possibly transition to prednisone if not improving in 24 hours IMPRESSIONS: 1. Acute on chronic combined respiratory failure While the patient does have a reported history of both COPD and asthma, she has never completed pulmonary function testing previously. She does have an extensive smoking history, along with a history of medical noncompliance and has poor outpatient follow-up. Infectious work-up was unrevealing. I do suspect that her exacerbation was likely precipitated by outpatient noncompliance with prescribed medication therapy and supplemental oxygen. The patient was able to be extubated on May 25. Patient does have some lower extremity edema. Unclear if this is secondary to cor pulmonale, but given increased oxygen demands will address with diuretic therapy. Failure to comply with noninvasive therapy does increase risk for decompensation and need for intubation. Will transition to systemic steroid therapy. Perform walking oximetry study prior to consideration for discharge home. I would recommend that the patient follow-up in the pulmonary medicine clinic 2 weeks after discharge. 2. Heart failure with preserved ejection fraction/pulmonary hypertension Continue outpatient cardiac medications. 3. Clinical concern for underlying sleep disordered breathing The patient needs to follow-up with the pulmonary medicine clinic so that a diagnostic polysomnogram can be completed. In the interim, empiric utilization of BIPAP with naps and nightly can be considered. Patient's noncompliance has increased risk of potential decompensation. 4. Polycythemia Clinical concern for chronic hypoxemia due to outpatient noncompliance with supplemental oxygen. 5. Acute hepatitis The patient has elevated transaminase levels of unclear etiology. Liver ultrasound revealed fatty infiltration without any other acute abnormality identified. Liver function is improving without intervention. Unclear if this may be secondary to elevated hepatic pressures associated with cor pulmonale. 6. Continuous tobacco dependency/diabetes mellitus/morbid obesity/history of medical noncompliance/chronic pain syndrome Complicates care, management, recovery and prognosis. Continue home medications as indicated. This note was generated with [employer] software. It may contain incorrect words, spelling, and punctuation that were not noted in checking the note before signing. Subjective Subjective Nursing is reporting significant difficulty with the patient overnight. Patient reportedly becomes more somnolent and has BiPAP placed, but shortly thereafter refuses. Patient did have an ABG overnight while on BiPAP therapy showing good response. Patient continues to require significant nasal cannula oxygen. Patient was very tearful and stated I am trying. Patient is reporting some nausea this morning. No diarrhea has been reported. Sim discussion with the patient about the necessity of possible repeat intubation. Patient states she is willing to be intubated if necessary and that she will try harder with the mask. Objective Data Objective Data Vital Signs: Vital Signs Temp Pulse Resp BP Pulse Ox 36.7 C 93 27 H 148/99 H 91 05/29/21 07:00 05/29/21 07:01 05/29/21 07:00 05/29/21 07:00 05/29/21 07:00 Oxygen Flow Rate (L/min) 6 Oxygen Delivery Method Nasal Cannula Weight: 106.7 kg Body Mass Index (BMI) 39.1 Intake & Output: Intake and Output for Last 24 Hours 05/27/21 05/28/21 05/29/21 23:59 23:59 23:59 Intake Total 220 / 220 1040 / 1040 0 / 0 Output Total 125 / 125 1000 / 1225 850 / 850 Balance 95 / 95 40 / -185 -850 / -850 Lab / Micro Data Result Diagrams: 05/29/21 05:18 05/29/21 05:18 Labs: Laboratory Results - last 24 hr 05/28/21 05/28/21 05/28/21 10:57 16:45 21:15 WBC RBC Hgb Hct MCV MCH MCHC RDW Std Deviation RDW Coeff of Marcy Plt Count MPV Immature Gran % (Auto) Neut % (Auto) Lymph % (Auto) [place] % (Auto) Eos % (Auto) Baso % (Auto) Absolute Neuts (auto) Absolute Lymphs (auto) Nucleated RBC % Sodium Potassium Chloride Carbon Dioxide Anion Gap BUN Creatinine Estim Creat Clear Calc Est GFR (MDRD) Af Amer Est GFR (MDRD) Non-Af BUN/Creatinine Ratio Glucose Calcium Total Bilirubin AST ALT Alkaline Phosphatase Total Protein Albumin Globulin Albumin/Globulin Ratio POC Glucose 304 H 216 H 242 H 05/29/21 05/29/21 05/29/21 05:18 05:18 06:44 WBC 10.2 RBC 5.83 H Hgb 16.4 H Hct 55.6 H MCV 95.4 MCH 28.1 MCHC 29.5 L D RDW Std Deviation 47.8 H RDW Coeff of Marcy 13.6 Plt Count 194 MPV 11.7 Immature Gran % (Auto) 0.400 Neut % (Auto) 72.8 H Lymph % (Auto) 14.9 L [place] % (Auto) 9.6 Eos % (Auto) 2.0 Baso % (Auto) 0.3 Absolute Neuts (auto) 7.4 Absolute Lymphs (auto) 1.52 Nucleated RBC % 0 Sodium 132 L Potassium 4.3 Chloride 89 L Carbon Dioxide 42.0 H Anion Gap 1 L BUN 13 Creatinine 0.36 L Estim Creat Clear Calc 163.23 Est GFR (MDRD) Af Amer 250 Est GFR (MDRD) Non-Af 207 BUN/Creatinine Ratio 36.6 H Glucose 133 H Calcium 8.5 Total Bilirubin 0.80 AST 51 H ALT 165 H Alkaline Phosphatase 100 Total Protein 5.6 L Albumin 1.6 L Globulin 4.0 Albumin/Globulin Ratio 0.4 L POC Glucose 138 H Micro: Microbiology 05/23/21 02:25 Blood Culture (Wb) - Right Hand Blood Culture - Final No growth in 5 days. 05/23/21 03:30 Urine Catheter - Catheter Urine Culture - Final Culture exhibits no growth. 05/23/21 03:31 Sputum, Induced/Lukens Gram Stain - Final 05/23/21 03:31 Sputum, Induced/Lukens Respiratory Culture - Final 05/23/21 03:31 Mucosa - Nasopharyngeal Respiratory Panel (PCR) - Final 05/23/21 03:30 Urine Catheter - Balderrama Legionella Antigen - Final 05/23/21 03:30 Urine Catheter - Balderrama Streptococcus pneumoniae Antigen (M - Final 05/23/21 02:25 Mucosa - Nose SARS-CoV-2 Antigen (Rapid) - Final ABG Data ABG results: ABG 05/28/21 05/28/21 12:59 22:32 Specimen Type ART ART Sample Site R Radial R RADIAL pH 7.36 7.48 H Bicarbonate Actual 43.1 H 53.7 H Total CO2 46 > 50 Base Excess 18 H > 30 H O2 Saturation 84 L 92 L O2 % 50 ABG pCO2 76.1 H* 71.7 H* ABG pO2 54 L 64 L Baudilio Test POS O2 Delivery Device Cannula Bi Pap Inspiratory Time 1.15 EPAP 8 IPAP 15 Crit Call To/Read Back Yes Yes Blood Gas Notified [facility] Blood Gas Notified Time 2231 Clinical Comments 08/07 Radiography Diagnostic Testing: Radiology Impression Chest CTA 05/28/21 12:47 IMPRESSION: No CT evidence of pulmonary embolism. Small bilateral pleural effusions with some bibasilar atelectasis. Electronically Signed: Eugene Villeda MD at 17:46 EDT Tel , Service support , Physical Exam Const alert and oriented x3 General Appearance: cooperative, well developed, in distress Positive for moderate and disheveled Nutritional Appearance: morbidly obese HEENT normocephalic, head/scalp atraumatic and moist oral mucous membranes Eyes PERRL and EOMs intact bilaterally Neck full ROM and no lymphadenopathy Chest inspection of chest normal Resp normal respiratory effort and no use of accessory muscles Resp Narrative: Coarse breath sounds bilaterally Effort and Inspection: symmetric chest movement and prolonged expiratory phase Auscultation: wheezes scattered wheezes and diminished lung sounds; Negative for rales or rhonchi Percussion: Negative for dullness Cardio regular rate, regular rhythm, S1 normal heart sound, S2 normal heart sound, no murmurs, no rub and no gallops GI normal to inspection, nondistended, normoactive bowel sounds no CVA tenderness Extremity General Extremity: edema; Negative for clubbing or cyanosis Skin no rashes or lesions noted General Skin Exam: erythema Neuro oriented x3, CN's II-XII intact bilaterally, moves all extremities and no focal motor deficits Psych cooperative and affect normal Charges/Coding Visit Charges Inpatient E&M: 78047 Subs Hosp L3
[2021-05-29] MEDS: Enoxaparin 40 MG/0.4 ML Syringe SC (09:00)
[2021-05-29] MEDS: Gabapentin 600 MG Tablet 1200 MG PO ×2 (09:00→20:31)
[2021-05-29] MEDS: Furosemide 40 MG/4 ML Vial IV ×2 (09:00→17:03)
[2021-05-29] MEDS: Lisinopril 40 MG Tablet PO (09:01)
[2021-05-29] MEDS: hydroCHLOROthiazide 25 MG Tablet PO (09:02)
[2021-05-29] MEDS: amLODIPine 10 MG Tablet PO (09:02)
[2021-05-29] MEDS: Pantoprazole Sodium 40 MG Tablet PO (09:02)
[2021-05-29] MEDS: busPIRone 5 MG Tablet 10 MG PO ×2 (09:02→20:31)
[2021-05-29] MEDS: Nystatin Powder 15gm Bottle 1 APPLIC TOPICAL ×2 (09:03→20:32)
[2021-05-29] MEDS: predniSONE 20 MG Tablet 40 MG PO (09:03)
[2021-05-29] MEDS: LORazepam 1 MG Tablet PO (09:05)
[2021-05-29] MEDS: Senna/Docusate Sodium 1 Tablet PO ×2 (09:07→20:31)
--- NOTE | 2021-05-29 10:24 | PN.HOSP_ITS ---
Subjective Subjective Patient seen and examined. SHe ws more alert today, though she did seem a bit confused. She still felt short of breath, and still had a productive cough. She is on 6L of oxygen by nasal canula. Review of systems is otherwise negative. Objective Data Objective Data Vital Signs: Vital Signs Temp Pulse Resp BP Pulse Ox 97.8 F 80 23 H 147/99 H 92 05/29/21 08:00 05/29/21 08:00 05/29/21 08:00 05/29/21 08:00 05/29/21 08:00 Oxygen Flow Rate (L/min) 6 Oxygen Delivery Method Nasal Cannula Weight: 235 lb 3.732 oz Body Mass Index (BMI) 39.1 Intake & Output: Intake and Output for Last 24 Hours 05/27/21 05/28/21 05/29/21 23:59 23:59 23:59 Intake Total 220 / 220 1040 / 1040 0 / 0 Output Total 125 / 125 1000 / 1225 850 / 850 Balance 95 / 95 40 / -185 -850 / -850 Lab / Micro Data Result Diagrams: 05/29/21 05:18 05/29/21 05:18 Labs: Laboratory Results - last 24 hr 05/28/21 05/28/21 05/28/21 10:57 16:45 21:15 WBC RBC Hgb Hct MCV MCH MCHC RDW Std Deviation RDW Coeff of Marcy Plt Count MPV Immature Gran % (Auto) Neut % (Auto) Lymph % (Auto) [place] % (Auto) Eos % (Auto) Baso % (Auto) Absolute Neuts (auto) Absolute Lymphs (auto) Nucleated RBC % Sodium Potassium Chloride Carbon Dioxide Anion Gap BUN Creatinine Estim Creat Clear Calc Est GFR (MDRD) Af Amer Est GFR (MDRD) Non-Af BUN/Creatinine Ratio Glucose Calcium Total Bilirubin AST ALT Alkaline Phosphatase Total Protein Albumin Globulin Albumin/Globulin Ratio POC Glucose 304 H 216 H 242 H 05/29/21 05/29/21 05/29/21 05:18 05:18 06:44 WBC 10.2 RBC 5.83 H Hgb 16.4 H Hct 55.6 H MCV 95.4 MCH 28.1 MCHC 29.5 L D RDW Std Deviation 47.8 H RDW Coeff of Marcy 13.6 Plt Count 194 MPV 11.7 Immature Gran % (Auto) 0.400 Neut % (Auto) 72.8 H Lymph % (Auto) 14.9 L [place] % (Auto) 9.6 Eos % (Auto) 2.0 Baso % (Auto) 0.3 Absolute Neuts (auto) 7.4 Absolute Lymphs (auto) 1.52 Nucleated RBC % 0 Sodium 132 L Potassium 4.3 Chloride 89 L Carbon Dioxide 42.0 H Anion Gap 1 L BUN 13 Creatinine 0.36 L Estim Creat Clear Calc 163.23 Est GFR (MDRD) Af Amer 250 Est GFR (MDRD) Non-Af 207 BUN/Creatinine Ratio 36.6 H Glucose 133 H Calcium 8.5 Total Bilirubin 0.80 AST 51 H ALT 165 H Alkaline Phosphatase 100 Total Protein 5.6 L Albumin 1.6 L Globulin 4.0 Albumin/Globulin Ratio 0.4 L POC Glucose 138 H Micro: Microbiology 05/23/21 02:25 Blood Culture (Wb) - Right Hand Blood Culture - Final No growth in 5 days. 05/23/21 03:30 Urine Catheter - Catheter Urine Culture - Final Culture exhibits no growth. 05/23/21 03:31 Sputum, Induced/Lukens Gram Stain - Final 05/23/21 03:31 Sputum, Induced/Lukens Respiratory Culture - Final 05/23/21 03:31 Mucosa - Nasopharyngeal Respiratory Panel (PCR) - Final 05/23/21 03:30 Urine Catheter - Balderrama Legionella Antigen - Final 05/23/21 03:30 Urine Catheter - Balderrama Streptococcus pneumoniae Antigen (M - Final 05/23/21 02:25 Mucosa - Nose SARS-CoV-2 Antigen (Rapid) - Final ABG Data ABG results: ABG 05/28/21 05/28/21 12:59 22:32 Specimen Type ART ART Sample Site R Radial R RADIAL pH 7.36 7.48 H Bicarbonate Actual 43.1 H 53.7 H Total CO2 46 > 50 Base Excess 18 H > 30 H O2 Saturation 84 L 92 L O2 % 50 ABG pCO2 76.1 H* 71.7 H* ABG pO2 54 L 64 L Baudilio Test POS O2 Delivery Device Cannula Bi Pap Inspiratory Time 1.15 EPAP 8 IPAP 15 Crit Call To/Read Back Yes Yes Blood Gas Notified [facility] Blood Gas Notified Time 2231 Clinical Comments 08/07 Radiography Diagnostic Testing: Radiology Impression Chest CTA 05/28/21 12:47 IMPRESSION: No CT evidence of pulmonary embolism. Small bilateral pleural effusions with some bibasilar atelectasis. Electronically Signed: Eugene Villeda MD at 17:46 EDT Tel , Service support , Physical Exam Const alert Orientation / Consciousness: disoriented and lethargic Exam Limitations: altered mental status HEENT head/scalp atraumatic Head and Scalp: normocephalic Mouth: dry mucous membranes Eyes PERRL, EOMs intact bilaterally and conjunctivae normal Neck no lymphadenopathy Resp Resp Narrative: diminished breath sounds bibasally, no wheezing or crackles. on 6L of oxygen by nasal canula Cardio regular rate, regular rhythm, S1 normal heart sound, S2 normal heart sound and no murmurs GI normal to inspection, nondistended, normoactive bowel sounds, soft to palpation, non-tender and non-distended Extremity normal to inspection, full ROM and no clubbing, cyanosis or edema Peripheral Pulses: Yes pulses 2+ throughout Skin no rashes or lesions noted Neuro moves all extremities Neuro Narrative: confused Sensorium / Orientation: awake Psych Psych Narrative: confused Assessment & Plan Assessment/Plan (1) Respiratory failure: (2) Acute exacerbation of chronic obstructive pulmonary disease: (3) Acute on chronic respiratory failure with hypoxia and hypercapnia: PLAN: #Acute metabolic encephalopathy due to acute on chronic hypoxic and hypercapnic respiratory failure from COPD exacerbation * patient still requiring 6L of oxygen * CTA of the chest done yesterday was negative for PE and showed small bilateral pleural effusions. * on breathing treatment with bronchodilators. On IV solumedrol * IV lasix 40mg bid * will get 2D echo; last echo was in 2019 * pulmonology on board * #Hypertension: on lisinopril, amlodipine and prn hydralazine #Hyperlipidemia: on statin #type 2 diabetes mellitus with peripheral neuropathy * on insulin * ISS. Accuchecks ACHS * on gabapentin * #CARSON: this is likely contributing to her lethargy and respiratory failure. BIPAP prn. #GERD: on PPI #Morbid obesity * BMI is 41. Complicates acute care, expected recovery and prognosis. * DVT prophylaxis: lovenox Charges/Coding Visit Charges Inpatient E&M: 48826 Subs Hosp L3
--- NOTE | 2021-05-29 10:45 | ECHOCS_ITS ---
Reason For Study: DYSPNEA/SOB Procedure This was a 2D Doppler, Color Flow transthoracic echocardiogram. The study was technically difficult. Due to body habitus. Contrast injection was performed. Exam performed portable in patient room. Left Ventricle Based upon the 2D echocardiographic and contrast enhanced images obtained there appears to be grossly normal left ventricular size and wall motion with the appearance of hyperdynamic LV systolic function. The estimated ejection fraction is 75 %. Transmitral doppler flow suggestive of impaired relaxation of left ventricle. Right Ventricle Based upon the 2D echocardiographic and contrast enhanced images obtained there appears to be grossly normal right ventricular size and systolic function. Atria Normal left atrium. Normal right atrium. No doppler evidence for ASD. Mitral Valve There is mild to moderate mitral annular calcification. Extension of the mitral annular calcification on the base of the posterior mitral valve leaflet. Tricuspid Valve Normal tricuspid valve. Trivial tricuspid valve insufficiency. Unable to estimate RV systolic pressure/pulmonary artery pressure due to technically difficult study. Aortic Valve Trisinus/trileaflet aortic valve. Mild focal aortic valve calcification. Pulmonic Valve The pulmonic valve is not well visualized. Great Vessels The aortic root is not well visualized. Pericardium/Pleural No pericardial effusion. Medication Diluted definity 3.0ml given slow IV push to enhance endocardial definition. MMode/2D Measurements & Calculations LAV(MOD-bp): 58.4 ml LA A4 area: 19.4 cm2 RA A4 area: 15.9 cm2 LAV(MOD-bp) Indexed: 27.9 ml/m2 LAV(MOD-sp2): 60.9 ml LAV(MOD-sp4): 56.3 ml Doppler Measurements & Calculations MV E max ryan: 82.9 cm/sec Lat Peak E' Ryan: 7.6 cm/sec Med Peak E' Ryan: 6.8 cm/sec MV A max ryan: 105.5 cm/sec E/E' lat: 11.0 E/E' med: 12.2 MV E/A: 0.79 Ao V2 max: 164.6 cm/sec LV V1 max: 134.5 cm/sec PA V2 max: 108.0 cm/sec Ao max P.8 mmHg LV V1 max P.2 mmHg ECHO/Echo Complete W/ Contrast Interpretation Summary The study was technically difficult. Contrast injection was performed. Based upon the 2D echocardiographic and contrast enhanced images obtained there appears to be grossly normal left ventricular size and wall motion with the appearance of hyp erdynamic LV systolic function. The estimated ejection fraction is 75 %. Trivial tricuspid valve insufficiency. Mild focal aortic valve calcification. Unable to estimate RV systolic pressure/pulmonary artery pressure due to techni staci difficult study. Transmitral doppler flow suggestive of impaired relaxation of left ventricle Ordering Physician: Kathia Magana Referring Physician: Marco A Melton Performed By: Estephanie Valdez, RAN, RVT
[2021-05-29] MEDS: Insulin Lispro 100 UNIT/ML INSULN.PEN SC ×2 (11:46→17:02)
[2021-05-29 11:50] LABS: Bedside Glucose 158 mg/dL (70-110)
[2021-05-29 12:07] LABS: Pathologist Review Reviewed
[2021-05-29 17:10] LABS: Bedside Glucose 200 mg/dL (70-110)
[2021-05-29] MEDS: QUEtiapine 25 MG Tablet PO (20:31)
[2021-05-29] MEDS: Atorvastatin Calcium 10 MG Tablet PO (20:31)
[2021-05-29 20:51] LABS: Bedside Glucose 157 mg/dL (70-110)
[2021-05-30] VITALS (28 sets, daily range): BP systolic 94–139; BP diastolic 65–98; PULSE 82–104; RESP 13–29; TEMP 36.4–37.4; O2SAT 85–97
[2021-05-30 06:41] LABS: Absolute Lymphocyte Count 2.32 X10^3/uL (0.83-4.51); Absolute Neutrophil Count 8.3 X10^3/uL (2.0-7.7); Basophil# 0.05 X10^3/uL; Basophil% 0.4 % (0-1); Eosinophil# 0.13 X10^3/uL; Eosinophils% 1.1 % (0-5); Hemoglobin 17.8 g/dL (12.0-15.0); Lymphocyte # 2.32 X10^3/ul (0.83-4.51); Lymphocyte % 19.1 % (19-41); Mean Corp Hgb Conc 30.4 g/dL (32-36); Mean Corpuscular Hgb 28.4 pg (27.0-32.0); Mean Corpuscular Volume 93.6 fL (81-99); Mean Platelet Vol. 11.3 fl (6.2-12.0); Monocyte# 1.35 X10^3/uL; Monocyte% 11.1 % (0-10); NRBC Flagged by Analyzer 0 % (0-5); Neutrophil # 8.26 X10^3/uL (2.7-7.7); Platelet Count 361 K/mm3 (150-450); RBC Distribution Width CV 13.8 % (11.6-14.6); Red Blood Count 6.26 M/mm3 (4.2-5.4); White Blood Count 12.2 K/mm3 (4.4-11.0)
[2021-05-30 06:46] LABS: Bedside Glucose 114 mg/dL (70-110)
[2021-05-30 06:47] LABS: Hematocrit 58.6 % (37-47)
[2021-05-30 07:40] LABS: BUN 18 mg/dL (7-18); BUN/Creat Ratio 36.3 RATIO (10-20); Calcium,Total 9.4 mg/dL (8.5-10.1); Carbon Dioxide > 45.0 mmol/L (21.0-32.0); Chloride 87 mmol/L (98-107); EST Glomerular Filtration Rate 140 mL/min (>60); Est Glom Filt Rate - Afr Amer 170 mL/min (>60); Estimated Creatinine Clearance 117.53 ml/min; Glucose 130 mg/dL (74-106); Potassium 3.9 mmol/L (3.5-5.1); Sodium Level 135 mmol/L (136-145)
--- NOTE | 2021-05-30 08:16 | PCM.PN.INT ---
Assessment & Plan Assessment/Plan (1) Acute on chronic respiratory failure with hypoxia and hypercapnia: PLAN: RECOMMENDATIONS: 1. Continue to wean supplemental oxygen to maintain saturations at or above 90%. 2. Continue scheduled bronchodilators. Transition budesonide to prednisone 3. Encourage incentive spirometer use and mobilize patient as tolerated. 4. Continue diuretic therapy 5. Anticipate 12 to 14-day taper of prednisone IMPRESSIONS: 1. Acute on chronic combined respiratory failure While the patient does have a reported history of both COPD and asthma, she has never completed pulmonary function testing previously. She does have an extensive smoking history, along with a history of medical noncompliance and has poor outpatient follow-up. Infectious work-up was unrevealing. I do suspect that her exacerbation was likely precipitated by outpatient noncompliance with prescribed medication therapy and supplemental oxygen. The patient was able to be extubated on May 25. Patient does have some lower extremity edema. Unclear if this is secondary to cor pulmonale, but given increased oxygen demands will address with diuretic therapy. Failure to comply with noninvasive therapy does increase risk for decompensation and need for intubation. We will continue with systemic steroid therapy with plans to wean over the next 12 to 14 days. Perform walking oximetry study prior to consideration for discharge home. I would recommend that the patient follow-up in the pulmonary medicine clinic 2 weeks after discharge. 2. Heart failure with preserved ejection fraction/pulmonary hypertension Continue outpatient cardiac medications. 3. Clinical concern for underlying sleep disordered breathing The patient needs to follow-up with the pulmonary medicine clinic so that a diagnostic polysomnogram can be completed. In the interim, empiric utilization of BIPAP with naps and nightly can be considered. Patient's noncompliance has increased risk of potential decompensation. 4. Polycythemia Clinical concern this is secondary to chronic hypoxemia due to outpatient noncompliance with supplemental oxygen. 5. Acute hepatitis The patient has elevated transaminase levels of unclear etiology. Liver ultrasound revealed fatty infiltration without any other acute abnormality identified. Liver function is improving without intervention. Unclear if this may be secondary to elevated hepatic pressures associated with cor pulmonale. 6. Continuous tobacco dependency/diabetes mellitus/morbid obesity/history of medical noncompliance/chronic pain syndrome Complicates care, management, recovery and prognosis. Continue home medications as indicated. This note was generated with [employer] software. It may contain incorrect words, spelling, and punctuation that were not noted in checking the note before signing. Subjective Subjective Patient did okay overnight. Patient's respiratory status did stabilize over the last 24 hours. Patient states that she would like to get a BiPAP machine for home, but did not wear it overnight. Patient denies any chest pain, abdominal pain, nausea or vomiting. Objective Data Objective Data Vital Signs: Vital Signs Temp Pulse Resp BP Pulse Ox 36.7 C 90 23 H 126/84 H 94 05/30/21 08:00 05/30/21 08:00 05/30/21 08:00 05/30/21 08:00 05/30/21 08:00 Oxygen Flow Rate (L/min) 4 Oxygen Delivery Method Nasal Cannula Weight: 100 kg Body Mass Index (BMI) 39.1 Intake & Output: Intake and Output for Last 24 Hours 05/28/21 05/29/21 05/30/21 23:59 23:59 23:59 Intake Total 1040 / 1040 600 / 600 120 / 120 Output Total 1000 / 1225 6150 / 6150 200 / 200 Balance 40 / -185 -5550 / -5550 -80 / -80 Lab / Micro Data Result Diagrams: 05/30/21 06:22 05/30/21 06:22 Labs: Laboratory Results - last 24 hr 05/26/21 05/29/21 05/29/21 05:15 11:45 17:02 WBC RBC Hgb Hct MCV MCH MCHC RDW Std Deviation RDW Coeff of Marcy Plt Count MPV Immature Gran % (Auto) Neut % (Auto) Lymph % (Auto) [place] % (Auto) Eos % (Auto) Baso % (Auto) Absolute Neuts (auto) Absolute Lymphs (auto) Nucleated RBC % Diff Path Review Reviewed Sodium Potassium Chloride Carbon Dioxide Anion Gap BUN Creatinine Estim Creat Clear Calc Est GFR (MDRD) Af Amer Est GFR (MDRD) Non-Af BUN/Creatinine Ratio Glucose Calcium POC Glucose 158 H 200 H 05/29/21 05/30/21 05/30/21 20:37 06:22 06:22 WBC 12.2 H RBC 6.26 H Hgb 17.8 H Hct 58.6 H MCV 93.6 MCH 28.4 MCHC 30.4 L RDW Std Deviation 47.0 H RDW Coeff of Marcy 13.8 Plt Count 361 MPV 11.3 Immature Gran % (Auto) 0.300 Neut % (Auto) 68.0 Lymph % (Auto) 19.1 [place] % (Auto) 11.1 H Eos % (Auto) 1.1 Baso % (Auto) 0.4 Absolute Neuts (auto) 8.3 H Absolute Lymphs (auto) 2.32 Nucleated RBC % 0 Diff Path Review Sodium 135 L Potassium 3.9 Chloride 87 L Carbon Dioxide > 45.0 H* Anion Gap TNP BUN 18 Creatinine 0.50 L Estim Creat Clear Calc 117.53 Est GFR (MDRD) Af Amer 170 Est GFR (MDRD) Non-Af 140 BUN/Creatinine Ratio 36.3 H Glucose 130 H Calcium 9.4 POC Glucose 157 H 05/30/21 06:32 WBC RBC Hgb Hct MCV MCH MCHC RDW Std Deviation RDW Coeff of Marcy Plt Count MPV Immature Gran % (Auto) Neut % (Auto) Lymph % (Auto) [place] % (Auto) Eos % (Auto) Baso % (Auto) Absolute Neuts (auto) Absolute Lymphs (auto) Nucleated RBC % Diff Path Review Sodium Potassium Chloride Carbon Dioxide Anion Gap BUN Creatinine Estim Creat Clear Calc Est GFR (MDRD) Af Amer Est GFR (MDRD) Non-Af BUN/Creatinine Ratio Glucose Calcium POC Glucose 114 H Micro: Microbiology 05/23/21 02:25 Blood Culture (Wb) - Right Hand Blood Culture - Final No growth in 5 days. 05/23/21 03:30 Urine Catheter - Catheter Urine Culture - Final Culture exhibits no growth. 05/23/21 03:31 Sputum, Induced/Lukens Gram Stain - Final 05/23/21 03:31 Sputum, Induced/Lukens Respiratory Culture - Final 05/23/21 03:31 Mucosa - Nasopharyngeal Respiratory Panel (PCR) - Final 05/23/21 03:30 Urine Catheter - Balderrama Legionella Antigen - Final 05/23/21 03:30 Urine Catheter - Balderrama Streptococcus pneumoniae Antigen (M - Final 05/23/21 02:25 Mucosa - Nose SARS-CoV-2 Antigen (Rapid) - Final Radiography Diagnostic Testing: Radiology Impression Echocardiogram 05/29/21 10:45 Interpretation Summary The study was technically difficult. Contrast injection was performed. Based upon the 2D echocardiographic and contrast enhanced images obtained there appears to be grossly normal left ventricular size and wall motion with the appearance of hyperdynamic LV systolic function. The estimated ejection fraction is 75 %. Trivial tricuspid valve insufficiency. Mild focal aortic valve calcification. Unable to estimate RV systolic pressure/pulmonary artery pressure due to technically difficult study. Transmitral doppler flow suggestive of impaired relaxation of left ventricle Ordering Physician: Kathia Magana Referring Physician: Marco A Melton Performed By: Estephanie Valdez, RAN, RVT Physical Exam Const alert and oriented x3 General Appearance: cooperative, well developed, in distress Positive for moderate and disheveled Nutritional Appearance: morbidly obese HEENT normocephalic, head/scalp atraumatic and moist oral mucous membranes Eyes PERRL and EOMs intact bilaterally Neck full ROM and no lymphadenopathy Chest inspection of chest normal Resp normal respiratory effort and no use of accessory muscles Effort and Inspection: symmetric chest movement and prolonged expiratory phase Auscultation: wheezes scattered wheezes and diminished lung sounds; Negative for rales or rhonchi Percussion: Negative for dullness Cardio regular rate, regular rhythm, S1 normal heart sound, S2 normal heart sound, no murmurs, no rub and no gallops GI normal to inspection, nondistended, normoactive bowel sounds no CVA tenderness Extremity General Extremity: edema; Negative for clubbing or cyanosis Skin no rashes or lesions noted General Skin Exam: erythema Neuro oriented x3, CN's II-XII intact bilaterally, moves all extremities and no focal motor deficits Psych cooperative and affect normal Charges/Coding Visit Charges Inpatient E&M: 33472 Subs Hosp L3
[2021-05-30] MEDS: amLODIPine 10 MG Tablet PO (08:59)
[2021-05-30] MEDS: Lisinopril 40 MG Tablet PO (08:59)
[2021-05-30] MEDS: predniSONE 20 MG Tablet 40 MG PO (08:59)
[2021-05-30] MEDS: Pantoprazole Sodium 40 MG Tablet PO (08:59)
[2021-05-30] MEDS: busPIRone 5 MG Tablet 10 MG PO ×2 (09:00→21:01)
[2021-05-30] MEDS: Gabapentin 600 MG Tablet 1200 MG PO ×2 (09:00→21:01)
[2021-05-30] MEDS: Furosemide 40 MG/4 ML Vial IV ×2 (09:00→17:00)
[2021-05-30] MEDS: Senna/Docusate Sodium 1 Tablet PO (09:00)
[2021-05-30] MEDS: hydroCHLOROthiazide 25 MG Tablet PO (09:00)
[2021-05-30] MEDS: Enoxaparin 40 MG/0.4 ML Syringe SC (09:00)
[2021-05-30] MEDS: 0.9% Saline Lock 10 ML Syringe IV ×2 (09:01→17:00)
[2021-05-30] MEDS: Nystatin Powder 15gm Bottle 1 APPLIC TOPICAL ×2 (09:02→21:01)
[2021-05-30] MEDS: LORazepam 1 MG Tablet PO ×2 (09:59→16:08)
--- NOTE | 2021-05-30 10:11 | CASEMGMT ---
SW spoke w/pt briefly, she would like to complete LW/POA possibly later today, she is short of breath at present. SW will stop back later as time allows. NATALIE Banuelos
--- NOTE | 2021-05-30 10:25 | PN.HOSP_ITS ---
Subjective Subjective Patient seen and examined. She is much more alert and communicative today. Still complains of shortness of breath and wheezing but has no other complaints otherwise. Review of systems otherwise negative. Objective Data Objective Data Vital Signs: Vital Signs Temp Pulse Resp BP Pulse Ox 97.9 F 97 22 H 137/89 H 90 05/30/21 10:00 05/30/21 10:00 05/30/21 10:00 05/30/21 10:00 05/30/21 10:00 Oxygen Flow Rate (L/min) 6 Oxygen Delivery Method Nasal Cannula Weight: 220 lb 7.396 oz Body Mass Index (BMI) 39.1 Intake & Output: Intake and Output for Last 24 Hours 05/28/21 05/29/21 05/30/21 23:59 23:59 23:59 Intake Total 1040 / 1040 600 / 600 120 / 120 Output Total 1000 / 1225 6150 / 6150 200 / 200 Balance 40 / -185 -5550 / -5550 -80 / -80 Lab / Micro Data Result Diagrams: 05/30/21 06:22 05/30/21 06:22 Labs: Laboratory Results - last 24 hr 05/26/21 05/29/21 05/29/21 05:15 11:45 17:02 WBC RBC Hgb Hct MCV MCH MCHC RDW Std Deviation RDW Coeff of Marcy Plt Count MPV Immature Gran % (Auto) Neut % (Auto) Lymph % (Auto) [place] % (Auto) Eos % (Auto) Baso % (Auto) Absolute Neuts (auto) Absolute Lymphs (auto) Nucleated RBC % Diff Path Review Reviewed Sodium Potassium Chloride Carbon Dioxide Anion Gap BUN Creatinine Estim Creat Clear Calc Est GFR (MDRD) Af Amer Est GFR (MDRD) Non-Af BUN/Creatinine Ratio Glucose Calcium POC Glucose 158 H 200 H 05/29/21 05/30/21 05/30/21 20:37 06:22 06:22 WBC 12.2 H RBC 6.26 H Hgb 17.8 H Hct 58.6 H MCV 93.6 MCH 28.4 MCHC 30.4 L RDW Std Deviation 47.0 H RDW Coeff of Marcy 13.8 Plt Count 361 MPV 11.3 Immature Gran % (Auto) 0.300 Neut % (Auto) 68.0 Lymph % (Auto) 19.1 [place] % (Auto) 11.1 H Eos % (Auto) 1.1 Baso % (Auto) 0.4 Absolute Neuts (auto) 8.3 H Absolute Lymphs (auto) 2.32 Nucleated RBC % 0 Diff Path Review Sodium 135 L Potassium 3.9 Chloride 87 L Carbon Dioxide > 45.0 H* Anion Gap TNP BUN 18 Creatinine 0.50 L Estim Creat Clear Calc 117.53 Est GFR (MDRD) Af Amer 170 Est GFR (MDRD) Non-Af 140 BUN/Creatinine Ratio 36.3 H Glucose 130 H Calcium 9.4 POC Glucose 157 H 05/30/21 06:32 WBC RBC Hgb Hct MCV MCH MCHC RDW Std Deviation RDW Coeff of Marcy Plt Count MPV Immature Gran % (Auto) Neut % (Auto) Lymph % (Auto) [place] % (Auto) Eos % (Auto) Baso % (Auto) Absolute Neuts (auto) Absolute Lymphs (auto) Nucleated RBC % Diff Path Review Sodium Potassium Chloride Carbon Dioxide Anion Gap BUN Creatinine Estim Creat Clear Calc Est GFR (MDRD) Af Amer Est GFR (MDRD) Non-Af BUN/Creatinine Ratio Glucose Calcium POC Glucose 114 H Micro: Microbiology 05/23/21 02:25 Blood Culture (Wb) - Right Hand Blood Culture - Final No growth in 5 days. 05/23/21 03:30 Urine Catheter - Catheter Urine Culture - Final Culture exhibits no growth. 05/23/21 03:31 Sputum, Induced/Lukens Gram Stain - Final 05/23/21 03:31 Sputum, Induced/Lukens Respiratory Culture - Final 05/23/21 03:31 Mucosa - Nasopharyngeal Respiratory Panel (PCR) - Final 05/23/21 03:30 Urine Catheter - Balderrama Legionella Antigen - Final 05/23/21 03:30 Urine Catheter - Balderrama Streptococcus pneumoniae Antigen (M - Final 05/23/21 02:25 Mucosa - Nose SARS-CoV-2 Antigen (Rapid) - Final Radiography Diagnostic Testing: Radiology Impression Echocardiogram 05/29/21 10:45 Interpretation Summary The study was technically difficult. Contrast injection was performed. Based upon the 2D echocardiographic and contrast enhanced images obtained there appears to be grossly normal left ventricular size and wall motion with the appearance of hyperdynamic LV systolic function. The estimated ejection fraction is 75 %. Trivial tricuspid valve insufficiency. Mild focal aortic valve calcification. Unable to estimate RV systolic pressure/pulmonary artery pressure due to technically difficult study. Transmitral doppler flow suggestive of impaired relaxation of left ventricle Ordering Physician: Kathia Magana Referring Physician: Marco A Melton Performed By: Estephanie Valdez, RAN, RVT Physical Exam Const alert, oriented x3 and no apparent distress General Appearance: cooperative, well kempt and well developed Orientation / Consciousness: awake, oriented to person, oriented to place, oriented to time and disoriented Exam Limitations: no limitations HEENT normocephalic, head/scalp atraumatic, moist oral mucous membranes and oropharynx normal Head and Scalp: normocephalic Eyes PERRL, EOMs intact bilaterally and conjunctivae normal Neck nuchal rigidity, no lymphadenopathy, supple, no JVD, thyroid normal and no carotid bruits General: trachea midline Resp Resp Narrative: diminished breath sounds bibasally, mild wheezing, no crackles. on 5L of oxygen by nasal canula Auscultation: Negative for rales, rhonchi or wheezes Cardio regular rate, regular rhythm, S1 normal heart sound, S2 normal heart sound, no murmurs, no rub, no gallops and no clicks GI normal to inspection, nondistended, normoactive bowel sounds, soft to palpation, non-tender and non-distended GI Narrative: Patient is morbidly obese Extremity normal to inspection, full ROM and no clubbing, cyanosis or edema Peripheral Pulses: Yes pulses 2+ throughout Skin no rashes or lesions noted, no wounds, skin turgor normal and no jaundice General Skin Exam: no breakdown Neuro oriented x3, CN's II-XII intact bilaterally, moves all extremities, no focal motor deficits and no sensory deficits noted Neuro Narrative: confused Sensorium / Orientation: awake and alert Speech: speech normal Psych thought process normal and affect normal Psych Narrative: confused Assessment & Plan Assessment/Plan (1) Respiratory failure: (2) Acute exacerbation of chronic obstructive pulmonary disease: (3) Acute on chronic respiratory failure with hypoxia and hypercapnia: PLAN: #Acute metabolic encephalopathy due to acute on chronic hypoxic and hypercapnic respiratory failure from COPD exacerbation * patient still requiring 6L of oxygen; now much more alert and communicative * CTA of the chest was negative for PE and showed small bilateral pleural effusions. * on breathing treatment with bronchodilators. On IV solumedrol * IV lasix 40mg bid * 2D ech showed EF of 75% with hyperdynamic LV systolic function and normal LV size and wall motion; impaired relaxation of left ventricle, mild to moderate mitral annular calcification; unable to assess RV systolic pressure due to technically difficult study. * pulmonology on board * #Hypertension: on lisinopril, amlodipine and prn hydralazine #Hyperlipidemia: on statin #type 2 diabetes mellitus with peripheral neuropathy * on insulin * ISS. Accuchecks ACHS * on gabapentin * #CARSON: this is likely contributing to her lethargy and respiratory failure. BIPAP prn. #GERD: on PPI #Morbid obesity * BMI is 41. Complicates acute care, expected recovery and prognosis. * DVT prophylaxis: lovenox Disposition: for likely DC home tomorrow Charges/Coding Visit Charges Inpatient E&M: 75700 Subs Hosp L2
[2021-05-30] MEDS: Ipratropium/Albuterol Sulfate 3 ML AMPUL.NEB INHALATION ×3 (10:27→22:30)
[2021-05-30] MEDS: Insulin Lispro 100 UNIT/ML INSULN.PEN SC ×3 (12:10→21:03)
[2021-05-30 12:16] LABS: Bedside Glucose 329 mg/dL (70-110)
[2021-05-30 16:16] LABS: Bedside Glucose 397 mg/dL (70-110)
[2021-05-30] MEDS: Atorvastatin Calcium 10 MG Tablet PO (21:02)
[2021-05-30] MEDS: QUEtiapine 25 MG Tablet PO (21:02)
[2021-05-30 21:11] LABS: Bedside Glucose 358 mg/dL (70-110)
[2021-05-31] VITALS (26 sets, daily range): BP systolic 107–151; BP diastolic 67–121; PULSE 82–99; RESP 13–27; TEMP 36.4–36.9; O2SAT 87–100
[2021-05-31] MEDS: LORazepam 1 MG Tablet PO ×2 (00:54→22:16)
[2021-05-31 06:41] LABS: Bedside Glucose 134 mg/dL (70-110)
[2021-05-31] MEDS: Ipratropium/Albuterol Sulfate 3 ML AMPUL.NEB INHALATION ×4 (07:15→19:40)
[2021-05-31 07:28] LABS: Anion Gap 5 (5-15); BUN 20 mg/dL (7-18); BUN/Creat Ratio 41.7 RATIO (10-20); Calcium,Total 9.1 mg/dL (8.5-10.1); Chloride 89 mmol/L (98-107); Creatinine, Serum 0.48 mg/dL (0.55-1.02); EST Glomerular Filtration Rate 146 mL/min (>60); Est Glom Filt Rate - Afr Amer 176 mL/min (>60); Estimated Creatinine Clearance 122.43 ml/min; Glucose 115 mg/dL (74-106); Magnesium 1.9 mg/dL (1.6-2.6); Potassium 3.4 mmol/L (3.5-5.1); Sodium Level 138 mmol/L (136-145)
--- NOTE | 2021-05-31 08:25 | PCM.PN.INT ---
Assessment & Plan Assessment/Plan (1) Acute on chronic respiratory failure with hypoxia and hypercapnia: PLAN: RECOMMENDATIONS: 1. Continue to wean supplemental oxygen to maintain saturations between 90 and 94 percent. 2. Continue scheduled bronchodilators. 3. Encourage incentive spirometer use and mobilize patient as tolerated. 4. Continue diuretic therapy as tolerated by renal function 5. Anticipate 12 to 14-day taper of prednisone at discharge IMPRESSIONS: 1. Acute on chronic combined respiratory failure While the patient does have a reported history of both COPD and asthma, she has never completed pulmonary function testing previously. She does have an extensive smoking history, along with a history of medical noncompliance and has poor outpatient follow-up. Infectious work-up was unrevealing. I do suspect that her exacerbation was likely precipitated by outpatient noncompliance with prescribed medication therapy and supplemental oxygen. The patient was able to be extubated on May 25. Patient does have some lower extremity edema. Unclear if this is secondary to cor pulmonale, but given increased oxygen demands will address with diuretic therapy. Failure to comply with noninvasive therapy does increase risk for decompensation and need for intubation. We will continue with systemic steroid therapy with plans to wean over the next 12 to 14 days following discharge. Perform walking oximetry study prior to consideration for discharge home. I would recommend that the patient follow-up in the pulmonary medicine clinic 2 weeks after discharge. Caution on high saturations as patient is already a CO2 retainer and is not using NIV routinely. 2. Heart failure with preserved ejection fraction/pulmonary hypertension Continue outpatient cardiac medications. 3. Clinical concern for underlying sleep disordered breathing The patient needs to follow-up with the pulmonary medicine clinic so that a diagnostic polysomnogram can be completed. In the interim, empiric utilization of BIPAP with naps and nightly can be considered. Patient's noncompliance has increased risk of potential decompensation. 4. Polycythemia Clinical concern this is secondary to chronic hypoxemia due to outpatient noncompliance with supplemental oxygen. 5. Acute hepatitis The patient has elevated transaminase levels of unclear etiology. Liver ultrasound revealed fatty infiltration without any other acute abnormality identified. Liver function is improving without intervention. Unclear if this may be secondary to elevated hepatic pressures associated with cor pulmonale. 6. Continuous tobacco dependency/diabetes mellitus/morbid obesity/history of medical noncompliance/chronic pain syndrome Complicates care, management, recovery and prognosis. Continue home medications as indicated. This note was generated with Dragon dictation software. It may contain incorrect words, spelling, and punctuation that were not noted in checking the note before signing. Subjective Subjective Patient did okay over the last 24 hours. However, patient continues to refuse BiPAP therapy. Patient was found to be 100 percent on 6 L nasal cannula this morning and very tearful. Patient is asking to go home, but readily admits that wearing BiPAP is hard. Patient is denying any chest pain or abdominal pain. Objective Data Objective Data Vital Signs: Vital Signs Temp Pulse Resp BP Pulse Ox 36.7 C 84 20 H 132/87 H 94 05/31/21 08:00 05/31/21 08:00 05/31/21 08:00 05/31/21 08:00 05/31/21 08:00 Oxygen Flow Rate (L/min) 4 Oxygen Delivery Method Nasal Cannula Weight: 97.5 kg Body Mass Index (BMI) 39.1 Intake & Output: Intake and Output for Last 24 Hours 05/29/21 05/30/21 05/31/21 23:59 23:59 23:59 Intake Total 600 / 600 1840 / 2380 590 / 590 Output Total 6150 / 6150 2775 / 4275 2050 / 2050 Balance -5550 / -5550 -935 / -1895 -1460 / -1460 Lab / Micro Data Result Diagrams: 05/30/21 06:22 05/31/21 06:28 Labs: Laboratory Results - last 24 hr 05/30/21 05/30/21 05/30/21 12:09 16:07 21:00 Sodium Potassium Chloride Carbon Dioxide Anion Gap BUN Creatinine Estim Creat Clear Calc Est GFR (MDRD) Af Amer Est GFR (MDRD) Non-Af BUN/Creatinine Ratio Glucose Calcium Phosphorus Magnesium POC Glucose 329 H 397 H 358 H 05/31/21 05/31/21 06:28 06:35 Sodium 138 Potassium 3.4 L Chloride 89 L Carbon Dioxide 44.0 H Anion Gap 5 BUN 20 H Creatinine 0.48 L Estim Creat Clear Calc 122.43 Est GFR (MDRD) Af Amer 176 Est GFR (MDRD) Non-Af 146 BUN/Creatinine Ratio 41.7 H Glucose 115 H Calcium 9.1 Phosphorus 4.0 Magnesium 1.9 POC Glucose 134 H Micro: Microbiology 05/23/21 02:25 Blood Culture (Wb) - Right Hand Blood Culture - Final No growth in 5 days. 05/23/21 03:30 Urine Catheter - Catheter Urine Culture - Final Culture exhibits no growth. 05/23/21 03:31 Sputum, Induced/Lukens Gram Stain - Final 05/23/21 03:31 Sputum, Induced/Lukens Respiratory Culture - Final 05/23/21 03:31 Mucosa - Nasopharyngeal Respiratory Panel (PCR) - Final 05/23/21 03:30 Urine Catheter - Balderrama Legionella Antigen - Final 05/23/21 03:30 Urine Catheter - Balderrama Streptococcus pneumoniae Antigen (M - Final 05/23/21 02:25 Mucosa - Nose SARS-CoV-2 Antigen (Rapid) - Final Physical Exam Const alert and oriented x3 General Appearance: cooperative, well developed, in distress Positive for mild and disheveled Nutritional Appearance: morbidly obese HEENT normocephalic, head/scalp atraumatic and moist oral mucous membranes Eyes PERRL and EOMs intact bilaterally Neck full ROM and no lymphadenopathy Chest inspection of chest normal Resp normal respiratory effort and no use of accessory muscles Resp Narrative: Coarse breath sounds bilaterally Effort and Inspection: symmetric chest movement and prolonged expiratory phase Auscultation: wheezes scattered wheezes and diminished lung sounds; Negative for rales or rhonchi Percussion: Negative for dullness Cardio regular rate, regular rhythm, S1 normal heart sound, S2 normal heart sound, no murmurs, no rub and no gallops GI normal to inspection, nondistended, normoactive bowel sounds no CVA tenderness Extremity General Extremity: edema; Negative for clubbing or cyanosis Skin no rashes or lesions noted General Skin Exam: erythema Neuro oriented x3, CN's II-XII intact bilaterally, moves all extremities and no focal motor deficits Psych cooperative Activity / Motor Behavior: restless Mood & Affect: anxious Charges/Coding Visit Charges Inpatient E&M: 95771 Subs Hosp L3
[2021-05-31] MEDS: predniSONE 20 MG Tablet 40 MG PO (08:30)
--- NOTE | 2021-05-31 09:43 | CASEMGMT ---
DIMITRY met with patient. 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 She said not right now. SW asked if she knows who she is going to name as her POA and she said she does not know yet. Vanessa WAGNER
[2021-05-31] MEDS: 0.9% Saline Lock 10 ML Syringe IV ×2 (09:49→17:41)
[2021-05-31] MEDS: Furosemide 40 MG/4 ML Vial IV ×2 (09:49→17:41)
[2021-05-31] MEDS: Nystatin Powder 15gm Bottle 1 APPLIC TOPICAL ×2 (09:50→21:19)
[2021-05-31] MEDS: Enoxaparin 40 MG/0.4 ML Syringe SC (09:50)
[2021-05-31] MEDS: Pantoprazole Sodium 40 MG Tablet PO (09:52)
[2021-05-31] MEDS: amLODIPine 10 MG Tablet PO (09:52)
[2021-05-31] MEDS: hydroCHLOROthiazide 25 MG Tablet PO (09:52)
[2021-05-31] MEDS: busPIRone 5 MG Tablet 10 MG PO ×2 (09:52→21:18)
[2021-05-31] MEDS: Lisinopril 40 MG Tablet PO (09:52)
[2021-05-31] MEDS: Gabapentin 600 MG Tablet 1200 MG PO ×2 (09:53→21:17)
[2021-05-31] MEDS: Insulin Lispro 100 UNIT/ML INSULN.PEN SC ×3 (11:09→21:18)
[2021-05-31 11:15] LABS: Bedside Glucose 162 mg/dL (70-110)
--- NOTE | 2021-05-31 11:59 | CASEMGMT ---
Addendum entered by Cindi Clemente 05/31/21 13:14: Still have not heard back from [facility], attempted to reach again without success. Glenroy ROACH CM Original Note: Attempted to reach [facility] to clarify pt oxygen order and they are to call this RN CM back. Glenroy ROACH CM
--- NOTE | 2021-05-31 14:36 | PN.HOSP_ITS ---
Subjective Subjective Patient seen and examined. She had no complaints and her breathing had improved. She was on 4 L of oxygen now. She usually wears 3 to 4 L of oxygen at home. Plan was to discharge patient home today but she says she does not feel well enough to go home. Review of systems otherwise negative. Objective Data Objective Data Vital Signs: Vital Signs Temp Pulse Resp BP Pulse Ox 97.6 F L 94 21 H 147/92 H 91 05/31/21 13:00 05/31/21 13:00 05/31/21 13:00 05/31/21 13:00 05/31/21 13:00 Oxygen Flow Rate (L/min) 6 Oxygen Delivery Method Nasal Cannula Weight: 214 lb 15.211 oz Body Mass Index (BMI) 39.1 Intake & Output: Intake and Output for Last 24 Hours 05/29/21 05/30/21 05/31/21 23:59 23:59 23:59 Intake Total 600 / 600 1840 / 2380 790 / 790 Output Total 6150 / 6150 2775 / 4275 2750 / 2750 Balance -5550 / -5550 -935 / -1895 -1960 / -1960 Lab / Micro Data Result Diagrams: 05/30/21 06:22 05/31/21 06:28 Labs: Laboratory Results - last 24 hr 05/30/21 05/30/21 05/31/21 16:07 21:00 06:28 Sodium 138 Potassium 3.4 L Chloride 89 L Carbon Dioxide 44.0 H Anion Gap 5 BUN 20 H Creatinine 0.48 L Estim Creat Clear Calc 122.43 Est GFR (MDRD) Af Amer 176 Est GFR (MDRD) Non-Af 146 BUN/Creatinine Ratio 41.7 H Glucose 115 H Calcium 9.1 Phosphorus 4.0 Magnesium 1.9 POC Glucose 397 H 358 H 05/31/21 05/31/21 06:35 11:07 Sodium Potassium Chloride Carbon Dioxide Anion Gap BUN Creatinine Estim Creat Clear Calc Est GFR (MDRD) Af Amer Est GFR (MDRD) Non-Af BUN/Creatinine Ratio Glucose Calcium Phosphorus Magnesium POC Glucose 134 H 162 H Micro: Microbiology 05/23/21 02:25 Blood Culture (Wb) - Right Hand Blood Culture - Final No growth in 5 days. 05/23/21 03:30 Urine Catheter - Catheter Urine Culture - Final Culture exhibits no growth. 05/23/21 03:31 Sputum, Induced/Lukens Gram Stain - Final 05/23/21 03:31 Sputum, Induced/Lukens Respiratory Culture - Final 05/23/21 03:31 Mucosa - Nasopharyngeal Respiratory Panel (PCR) - Final 05/23/21 03:30 Urine Catheter - Balderrama Legionella Antigen - Final 05/23/21 03:30 Urine Catheter - Balderrama Streptococcus pneumoniae Antigen (M - Final 05/23/21 02:25 Mucosa - Nose SARS-CoV-2 Antigen (Rapid) - Final Physical Exam Const alert, oriented x3 and no apparent distress Constitutional Narrative: Patient has morbid obesity General Appearance: cooperative, well kempt and well developed Orientation / Consciousness: awake, oriented to person, oriented to place, oriented to time and disoriented Exam Limitations: no limitations HEENT normocephalic, head/scalp atraumatic, moist oral mucous membranes and oropharynx normal Eyes PERRL, EOMs intact bilaterally and conjunctivae normal Neck nuchal rigidity, no lymphadenopathy, supple, no JVD, thyroid normal and no carotid bruits General: trachea midline Resp Resp Narrative: diminished breath sounds bibasally, mild wheezing, no crackles. on 5L of oxygen by nasal canula Auscultation: Negative for rales, rhonchi or wheezes Cardio regular rate, regular rhythm, S1 normal heart sound, S2 normal heart sound, no murmurs, no rub, no gallops and no clicks GI normal to inspection, nondistended, normoactive bowel sounds, soft to palpation, non-tender and non-distended GI Narrative: Patient is morbidly obese Extremity normal to inspection, full ROM and no clubbing, cyanosis or edema Skin no rashes or lesions noted, no wounds, skin turgor normal and no jaundice General Skin Exam: no breakdown Neuro oriented x3, CN's II-XII intact bilaterally, moves all extremities, no focal motor deficits and no sensory deficits noted Neuro Narrative: confused Sensorium / Orientation: awake and alert Speech: speech normal Psych thought process normal and affect normal Psych Narrative: confused Assessment & Plan Assessment/Plan (1) Respiratory failure: (2) Acute exacerbation of chronic obstructive pulmonary disease: (3) Acute on chronic respiratory failure with hypoxia and hypercapnia: PLAN: #Acute metabolic encephalopathy due to acute on chronic hypoxic and hypercapnic respiratory failure from COPD exacerbation * now down to 4L of oxygen CTA of the chest was negative for PE and showed small bilateral pleural effusions. * on breathing treatment with bronchodilators. On IV solumedrol * IV lasix 40mg bid * 2D ech showed EF of 75% with hyperdynamic LV systolic function and normal LV size and wall motion; impaired relaxation of left ventricle, mild to moderate mitral annular calcification; unable to assess RV systolic pressure due to technically difficult study. * pulmonology on board * #Hypertension: on lisinopril, amlodipine and prn hydralazine #Hyperlipidemia: on statin #type 2 diabetes mellitus with peripheral neuropathy * on insulin * ISS. Accuchecks ACHS * on gabapentin * #CARSON: this is likely contributing to her lethargy and respiratory failure. BIPAP prn. #GERD: on PPI #Morbid obesity * BMI is 41. Complicates acute care, expected recovery and prognosis. * DVT prophylaxis: lovenox Disposition:patient refusing to go home today; wants one more day in the hospital Charges/Coding Visit Charges Inpatient E&M: 18502 Subs Hosp L2
[2021-05-31] MEDS: Insulin Lispro 100 UNIT/ML INSULN.PEN 10 UNIT SC ×2 (16:41→19:18)
[2021-05-31 17:00] LABS: Bedside Glucose > 500 mg/dL (70-110)
[2021-05-31 17:51] LABS: Bedside Glucose > 500 mg/dL (70-110)
[2021-05-31] MEDS: Insulin Lispro 100 UNIT/ML INSULN.PEN 20 UNIT SC (17:59)
[2021-05-31 18:55] LABS: Bedside Glucose > 500 mg/dL (70-110)
[2021-05-31] MEDS: Atorvastatin Calcium 10 MG Tablet PO (21:17)
[2021-05-31] MEDS: QUEtiapine 25 MG Tablet PO (21:17)
[2021-05-31 21:30] LABS: Bedside Glucose 250 mg/dL (70-110)
[2021-06-01 03:00] VITALS: PULSE 81
[2021-06-01 04:00] VITALS: BP 130/79; PULSE 78; RESP 18; TEMP 36.6; O2SAT 94
[2021-06-01 06:46] LABS: Bedside Glucose 129 mg/dL (70-110)
[2021-06-01 07:06] LABS: Bedside Glucose > 500 mg/dL (70-110)
[2021-06-01 07:06] LABS: Bedside Glucose > 500 mg/dL (70-110)
[2021-06-01 07:07] VITALS: PULSE 89; RESP 24; O2SAT 96
[2021-06-01] MEDS: Ipratropium/Albuterol Sulfate 3 ML AMPUL.NEB INHALATION (07:07)
[2021-06-01 07:30] VITALS: PULSE 82
[2021-06-01 07:39] LABS: Anion Gap 13 (5-15); BUN 21 mg/dL (7-18); BUN/Creat Ratio 32.5 RATIO (10-20); Calcium,Total 9.3 mg/dL (8.5-10.1); Chloride 90 mmol/L (98-107); Creatinine, Serum 0.65 mg/dL (0.55-1.02); EST Glomerular Filtration Rate 103 mL/min (>60); Est Glom Filt Rate - Afr Amer 125 mL/min (>60); Estimated Creatinine Clearance 90.41 ml/min; Glucose 87 mg/dL (74-106); Potassium 4.4 mmol/L (3.5-5.1); Sodium Level 140 mmol/L (136-145)
--- NOTE | 2021-06-01 08:23 | PCM.PN.INT ---
Assessment & Plan Assessment/Plan (1) Acute on chronic respiratory failure with hypoxia and hypercapnia: PLAN: RECOMMENDATIONS: 1. Continue to wean supplemental oxygen to maintain saturations between 90 and 94 percent. 2. Continue scheduled bronchodilators. 3. Encourage incentive spirometer use and mobilize patient as tolerated. 4. Continue diuretic therapy as tolerated by renal function 5. Split Lantus dosing to better control blood sugars 6. Anticipate 12 to 14-day taper of prednisone at discharge IMPRESSIONS: 1. Acute on chronic combined respiratory failure Likely multifactorial. While the patient does have a reported history of both COPD and asthma, she has never completed pulmonary function testing previously. She does have an extensive smoking history, along with a history of medical noncompliance and has poor outpatient follow-up. Infectious work-up was unrevealing. I do suspect that her exacerbation was likely precipitated by outpatient noncompliance with prescribed medication therapy and supplemental oxygen. The patient was able to be extubated on May 25. Patient does have some lower extremity edema. Unclear if this is secondary to cor pulmonale, but given increased oxygen demands will address with diuretic therapy. Patient continues to tolerate diuresis. Failure to comply with noninvasive therapy does increase risk for decompensation and need for intubation. We will continue with systemic steroid therapy with plans to wean over the next 12 to 14 days following discharge. Perform walking oximetry study prior to consideration for discharge home. I would recommend that the patient follow-up in the pulmonary medicine clinic 2 weeks after discharge. Caution on high saturations as patient is already a CO2 retainer and is not using NIV routinely. Will order a walking oximetry in an attempt to get patient ambulating more frequently. 2. Heart failure with preserved ejection fraction/pulmonary hypertension Continue outpatient cardiac medications. 3. Clinical concern for underlying sleep disordered breathing The patient needs to follow-up with the pulmonary medicine clinic so that a diagnostic polysomnogram can be completed. In the interim, empiric utilization of BIPAP with naps and nightly can be considered. Patient's noncompliance has increased risk of potential decompensation. 4. Polycythemia Clinical concern this is secondary to chronic hypoxemia due to outpatient noncompliance with supplemental oxygen. 5. Acute hepatitis The patient has elevated transaminase levels of unclear etiology. Liver ultrasound revealed fatty infiltration without any other acute abnormality identified. Liver function is improving without intervention. Unclear if this may be secondary to elevated hepatic pressures associated with cor pulmonale. 6. Continuous tobacco dependency/diabetes mellitus/morbid obesity/history of medical noncompliance/chronic pain syndrome Complicates care, management, recovery and prognosis. Continue home medications as indicated. Patient with significantly elevated blood sugars during the day, but adequate blood sugars in the morning. We will split up Lantus to increase morning dose and decrease evening dose. Clinical suspicion for decreased p.o. intake overnight leading to better blood sugar control. This note was generated with [employer] dictation software. It may contain incorrect words, spelling, and punctuation that were not noted in checking the note before signing. Subjective Subjective Patient did okay over the last 24 hours. Patient did wear BiPAP for approximately 1 to 2 hours overnight, but was on nasal cannula the majority of the time. Patient continues to request to go home despite not following directions. Patient reportedly did better with keeping her oxygen in place overnight per nursing staff. Objective Data Objective Data Vital Signs: Vital Signs Temp Pulse Resp BP Pulse Ox 36.6 C 82 24 H 130/79 H 96 06/01/21 04:00 06/01/21 07:30 06/01/21 07:07 06/01/21 04:00 06/01/21 07:07 Oxygen Flow Rate (L/min) 5 Oxygen Delivery Method Nasal Cannula Weight: 96.1 kg Body Mass Index (BMI) 39.1 Intake & Output: Intake and Output for Last 24 Hours 05/30/21 05/31/21 06/01/21 23:59 23:59 23:59 Intake Total 1840 / 2380 1390 / 1870 720 / 720 Output Total 2775 / 4275 5050 / 5350 300 / 300 Balance -935 / -1895 -3660 / -3480 420 / 420 Lab / Micro Data Result Diagrams: 05/30/21 06:22 06/01/21 06:44 Labs: Laboratory Results - last 24 hr 05/31/21 05/31/21 05/31/21 11:07 16:20 16:22 Sodium Potassium Chloride Carbon Dioxide Anion Gap BUN Creatinine Estim Creat Clear Calc Est GFR (MDRD) Af Amer Est GFR (MDRD) Non-Af BUN/Creatinine Ratio Glucose Calcium POC Glucose 162 H > 500 H* > 500 H* 05/31/21 05/31/21 05/31/21 16:56 17:40 18:52 Sodium Potassium Chloride Carbon Dioxide Anion Gap BUN Creatinine Estim Creat Clear Calc Est GFR (MDRD) Af Amer Est GFR (MDRD) Non-Af BUN/Creatinine Ratio Glucose Calcium POC Glucose > 500 H* > 500 H* > 500 H* 05/31/21 06/01/21 06/01/21 21:16 06:42 06:44 Sodium 140 Potassium 4.4 Chloride 90 L Carbon Dioxide 37.0 H Anion Gap 13 BUN 21 H Creatinine 0.65 Estim Creat Clear Calc 90.41 Est GFR (MDRD) Af Amer 125 Est GFR (MDRD) Non-Af 103 BUN/Creatinine Ratio 32.5 H Glucose 87 Calcium 9.3 POC Glucose 250 H 129 H Micro: Microbiology 05/23/21 02:25 Blood Culture (Wb) - Right Hand Blood Culture - Final No growth in 5 days. 05/23/21 03:30 Urine Catheter - Catheter Urine Culture - Final Culture exhibits no growth. 05/23/21 03:31 Sputum, Induced/Lukens Gram Stain - Final 05/23/21 03:31 Sputum, Induced/Lukens Respiratory Culture - Final 05/23/21 03:31 Mucosa - Nasopharyngeal Respiratory Panel (PCR) - Final 05/23/21 03:30 Urine Catheter - Balderrama Legionella Antigen - Final 05/23/21 03:30 Urine Catheter - Balderrama Streptococcus pneumoniae Antigen (M - Final 05/23/21 02:25 Mucosa - Nose SARS-CoV-2 Antigen (Rapid) - Final Physical Exam Const alert and oriented x3 General Appearance: cooperative, well developed and disheveled Nutritional Appearance: morbidly obese HEENT normocephalic, head/scalp atraumatic and moist oral mucous membranes Eyes PERRL and EOMs intact bilaterally Neck full ROM and no lymphadenopathy Chest inspection of chest normal Resp normal respiratory effort and no use of accessory muscles Resp Narrative: Coarse breath sounds bilaterally Effort and Inspection: symmetric chest movement and prolonged expiratory phase Auscultation: wheezes scattered wheezes and diminished lung sounds; Negative for rales or rhonchi Percussion: Negative for dullness Cardio regular rate, regular rhythm, S1 normal heart sound, S2 normal heart sound, no murmurs, no rub and no gallops GI normal to inspection, nondistended, normoactive bowel sounds no CVA tenderness Extremity General Extremity: edema; Negative for clubbing or cyanosis Skin no rashes or lesions noted General Skin Exam: erythema Neuro oriented x3, CN's II-XII intact bilaterally, moves all extremities and no focal motor deficits Psych cooperative Activity / Motor Behavior: restless Mood & Affect: anxious Charges/Coding Visit Charges Inpatient E&M: 35631 Subs Hosp L3
[2021-06-01 08:45] VITALS: BP 141/94; PULSE 88; RESP 18; TEMP 36.2; O2SAT 95
[2021-06-01] MEDS: busPIRone 5 MG Tablet 10 MG PO (08:49)
[2021-06-01] MEDS: predniSONE 20 MG Tablet 40 MG PO (08:50)
[2021-06-01] MEDS: hydroCHLOROthiazide 25 MG Tablet PO (08:50)
[2021-06-01] MEDS: amLODIPine 10 MG Tablet PO (08:51)
[2021-06-01] MEDS: Gabapentin 600 MG Tablet 1200 MG PO (08:51)
[2021-06-01] MEDS: Lisinopril 40 MG Tablet PO (08:52)
[2021-06-01] MEDS: Pantoprazole Sodium 40 MG Tablet PO (08:52)
--- NOTE | 2021-06-01 08:58 | PCM.DC.SUM ---
Providers Date of Admission: 05/23/21 Primary Care Physician: Dr. Rita Melton MD Consultations 05/23/21 05:22 Consult: Restaurant Cashier / Pulmonary Medicine Routine Consulting Provider: Adilson Myers Reason for Consult: Vent management, resp failure, COPD/Asthma EMERGENT Consult: No MD Notified: Yes Date Notified: 05/23/21 Time Notified: 03:01 Method of Notification: cortext Reason For Visit: AUTE RESPIRATORY FAILURE, COPD/ASTHMA EXAC Diagnosis Discharge Diagnosis (1) Acute on chronic respiratory failure with hypoxia and hypercapnia: Status: Acute Code(s): J96.21 - Acute and chronic respiratory failure with hypoxia; J96.22 - Acute and chronic respiratory failure with hypercapnia Medications at Discharge Home Medications amlodipine 10 mg PO DAILY 08/13/15 Oxygen, Home [Home Oxygen] 4 - 6 lpm NASAL PRN PRN #0 04/06/19 atorvastatin 10 mg PO DAILY 10/14/20 gabapentin 1,200 mg PO TID 10/14/20 lisinopril 40 mg PO DAILY #0 10/17/20 Lantus Solostar U-100 Insulin 46 unit SUBCUT QHS 05/29/21 albuterol sulfate 2 puff INHALATION Q4H PRN PRN 05/29/21 budesonide-formoterol [Symbicort] 2 puff INHALATION BID 05/29/21 cholecalciferol (vitamin D3) [Vitamin D3] 1,000 unit PO DAILY 05/29/21 ipratropium-albuterol 3 ml INHALATION Q4H PRN PRN 05/29/21 omeprazole 20 mg PO DAILY 05/29/21 furosemide 40 mg PO DAILY #30 tab 06/01/21 potassium chloride [Klor-Con M20] 20 meq PO DAILY #30 tab 06/01/21 Hospital Course Operations None Procedures None Summary of Care Provided Minutes Spent on Discharge: 45 Hospital Course: Patient is a 50-year-old female with a past medical history which includes chronic hypoxic respiratory failure due to asthma and COPD, usually on 4 to 6 L of oxygen at home, type 2 diabetes mellitus, morbid obesity, GERD, hypertension and chronic back pain. She was admitted through the ED on 05/23/2021 with a complaint of worsening shortness of breath and wheezing as well as a mildly productive cough for 3 days prior to admission. She denied any associated fever or chills. In the ED, she was noted to be confused and hypoxic and unable to speak in complete sentences and she had increased work of breathing as well. Checks x-ray showed no acute cardiopulmonary process. Covid test was negative. She was emergently intubated on account of acute hypoxic respiratory failure and started on breathing treatments and IV Solu-Medrol. She was admitted to the ICU and managed for acute hypoxic respiratory failure due to COPD exacerbation. She was also started on empiric antimicrobials due to concerns for pneumonia. Liver enzymes were also elevated. Liver ultrasound done showed fatty infiltration with no other acute abnormality. Liver enzymes improved subsequently. Patient was subsequently extubated and transferred out of the ICU to the regular nursing floor. She was weaned down to her baseline 4 to 6 L of oxygen. It turned out patient has an oxygen concentrator at home and though she was was used as needed, she was using it for most of the day though it was reported that she often took her oxygen off at home. Patient's hospital course remained stable afterwards and she was discharged on 06/01/2021. She was discharged home on a tapering dose of steroids and breathing treatments and is to use her oxygen. Patient was seen and examined prior to discharge. She felt better and wanted to be discharged home because her father was not well. Review of symptoms otherwise negative. Labs and vitals reviewed. Home medication reviewed and reconciled. Physical Exam Const alert, oriented x3 and no apparent distress Constitutional Narrative: Patient has morbid obesity General Appearance: cooperative, well kempt and well developed Orientation / Consciousness: awake, oriented to person, oriented to place, oriented to time and disoriented Exam Limitations: no limitations HEENT normocephalic, head/scalp atraumatic, moist oral mucous membranes and oropharynx normal Eyes PERRL, EOMs intact bilaterally and conjunctivae normal Neck nuchal rigidity, no lymphadenopathy, supple, no JVD, thyroid normal and no carotid bruits General: trachea midline Resp normal respiratory effort, no retractions, no use of accessory muscles and clear to auscultation bilaterally Resp Narrative: diminished breath sounds bibasally, no wheezing, no crackles. on 4L of oxygen by nasal canula Auscultation: Negative for rales, rhonchi or wheezes Cardio regular rate, regular rhythm, S1 normal heart sound, S2 normal heart sound, no murmurs, no rub, no gallops and no clicks GI normal to inspection, nondistended, normoactive bowel sounds, soft to palpation, non-tender and non-distended GI Narrative: Patient is morbidly obese Extremity normal to inspection, full ROM and no clubbing, cyanosis or edema Skin no rashes or lesions noted, no wounds, skin turgor normal and no jaundice General Skin Exam: no breakdown Neuro oriented x3, CN's II-XII intact bilaterally, moves all extremities, no focal motor deficits and no sensory deficits noted Sensorium / Orientation: awake and alert Speech: speech normal Psych thought process normal and affect normal Weight / BMI Weight Weight: 211 lb 13.828 oz Body Mass Index (BMI) 39.1 ABG / Lab / Microbiology Data Result Diagrams: 05/30/21 06:22 06/01/21 06:44 Laboratory: Laboratory Results - last 24 hr 05/31/21 05/31/21 05/31/21 11:07 16:20 16:22 Sodium Potassium Chloride Carbon Dioxide Anion Gap BUN Creatinine Estim Creat Clear Calc Est GFR (MDRD) Af Amer Est GFR (MDRD) Non-Af BUN/Creatinine Ratio Glucose Calcium POC Glucose 162 H > 500 H* > 500 H* 05/31/21 05/31/21 05/31/21 16:56 17:40 18:52 Sodium Potassium Chloride Carbon Dioxide Anion Gap BUN Creatinine Estim Creat Clear Calc Est GFR (MDRD) Af Amer Est GFR (MDRD) Non-Af BUN/Creatinine Ratio Glucose Calcium POC Glucose > 500 H* > 500 H* > 500 H* 05/31/21 06/01/21 06/01/21 21:16 06:42 06:44 Sodium 140 Potassium 4.4 Chloride 90 L Carbon Dioxide 37.0 H Anion Gap 13 BUN 21 H Creatinine 0.65 Estim Creat Clear Calc 90.41 Est GFR (MDRD) Af Amer 125 Est GFR (MDRD) Non-Af 103 BUN/Creatinine Ratio 32.5 H Glucose 87 Calcium 9.3 POC Glucose 250 H 129 H Microbiology: Microbiology 05/23/21 02:25 Blood Culture (Wb) - Right Hand Blood Culture - Final No growth in 5 days. 05/23/21 03:30 Urine Catheter - Catheter Urine Culture - Final Culture exhibits no growth. 05/23/21 03:31 Sputum, Induced/Lukens Gram Stain - Final 05/23/21 03:31 Sputum, Induced/Lukens Respiratory Culture - Final 05/23/21 03:31 Mucosa - Nasopharyngeal Respiratory Panel (PCR) - Final 05/23/21 03:30 Urine Catheter - Balderrama Legionella Antigen - Final 05/23/21 03:30 Urine Catheter - Balderrama Streptococcus pneumoniae Antigen (M - Final 05/23/21 02:25 Mucosa - Nose SARS-CoV-2 Antigen (Rapid) - Final D/C Instructions Discharge Diet: 2000 mg Sodium Diet Discharge Activity: Return to Normal Activity Weight Bearing Status: Weight bearing as tolerated Call your doctor if you observe: Fever of 101 or Higher, Shortness of breath, Dizziness, Swelling in the ankles and Chest pain Meaningful Use Info Meaningful Use Diagnoses (Choose all that apply): None applicable Discharge Plan Admission Admit Date/Time: 05/23/21 03:03 Primary Reason for Your Visit: acute on chronic hypoxic respiratory failure due to COPD exacerbation Attending Provider: Kathia Magana Primary Care Provider: Rita Melton Consulting Providers: Adilson Myers Instructions Patient Instructions: ICU Inside, Understanding Ventilators, Chronic Lung Disease Aerobic Additional Instructions / Restrictions: Counseled to keep oxygen on at home when using it. Discharge Orders/Prescriptions Prescriptions: New furosemide 40 mg tablet 40 mg PO DAILY Qty: 30 RF: 1 potassium chloride [Klor-Con M20] 20 mEq tablet,ER particles/crystals 20 meq PO DAILY Qty: 30 RF: 1 Continued amlodipine 10 MG tablet 10 mg PO DAILY RF: 0 Oxygen, Home [Home Oxygen] 4 - 6 lpm NASAL PRN PRN (Reason: breathing) Qty: 0 RF: 0 gabapentin 600 MG tablet 1,200 mg PO TID RF: 0 atorvastatin 10 MG tablet 10 mg PO DAILY RF: 0 lisinopril 40 MG tablet 40 mg PO DAILY Qty: 0 RF: 0 ipratropium-albuterol 0.5 mg-3 mg(2.5 mg base)/3 mL solution for nebulization 3 ml inhalation Q4H PRN PRN (Reason: COPD) RF: 0 omeprazole 20 mg capsule,delayed release(DR/EC) 20 mg PO DAILY RF: 0 albuterol sulfate 90 mcg/actuation HFA aerosol inhaler 2 puff INHALATION Q4H PRN PRN (Reason: COPD) RF: 0 cholecalciferol (vitamin D3) [Vitamin D3] 25 mcg (1,000 unit) tablet 1,000 unit PO DAILY RF: 0 budesonide-formoterol [Symbicort] 160-4.5 mcg/actuation HFA aerosol inhaler 2 puff INHALATION BID RF: 0 Lantus Solostar U-100 Insulin 100 unit/mL (3 mL) insulin pen 46 unit SUBCUT QHS RF: 0 Discontinued hydrochlorothiazide 25 tablet 25 mg PO DAILY RF: 0 Referrals / Follow Up: Adilson Myers DO [STAFF PHYSICIAN] - Within 2 Weeks Rita Melton MD [Primary Care Provider] - In 1 Week Disposition Disposition (needs filled in before D/C Order can be placed): Home, Self Care Charges/Coding Visit Charges Inpatient E&M: 48658 Disch Hosp
[2021-06-01] MEDS: Nystatin Powder 15gm Bottle 1 APPLIC TOPICAL (09:04)
[2021-06-01 09:36] VITALS: O2SAT 87; O2SAT 90
--- NOTE | 2021-06-01 10:19 | CASEMGMT ---
Call to [facility] as they have not called this RN CM back. Per Salomon, pt's order is for 2-4L nc continuous. Per Silvana ROACH, pt qualifies for 4L at rest and 7L w/ exertion. New script to be faxed to [facility] and this RN CM placed call to [facility] to notify that pt will need a larger concentrator, voice understanding. This RN CM to room to discuss with pt, voices understanding. Pt declines HHC/OP therapy at this time and is aware that she can call her PCP once home for therapy, if she changes her mind. Pt states she will be going to stay with Adrian, her sig other and states no concerns with going there at this time. Pt does request a WW and this was added to [facility] order for increased home oxygen. [facility] updated on all, voices understanding. New order faxed. Pt is very anxious to leave as she states her dad is 'having surgery and he's dying.' Pt does not prefer to elaborate on this at this time. CM to follow for any further discharge planning/needs. Glenroy ROACH CM
--- NOTE | 2021-06-01 10:32 | PHA.DC.MC ---
Pharmacy Service has attempted to perform discharge medication reconciliation and counseling for this patient. Patient refused counselling at this time. Left paperwork with patient and notified her that pharmacy can come back and answer any questions she may have. Patient verbalized understanding. Home Medications amlodipine 10 mg PO DAILY 08/13/15 Oxygen, Home [Home Oxygen] 4 - 6 lpm NASAL PRN PRN #0 04/06/19 atorvastatin 10 mg PO DAILY 10/14/20 gabapentin 1,200 mg PO TID 10/14/20 lisinopril 40 mg PO DAILY #0 10/17/20 Lantus Solostar U-100 Insulin 46 unit SUBCUT QHS 05/29/21 albuterol sulfate 2 puff INHALATION Q4H PRN PRN 05/29/21 budesonide-formoterol [Symbicort] 2 puff INHALATION BID 05/29/21 cholecalciferol (vitamin D3) [Vitamin D3] 1,000 unit PO DAILY 05/29/21 ipratropium-albuterol 3 ml INHALATION Q4H PRN PRN 05/29/21 omeprazole 20 mg PO DAILY 05/29/21 furosemide 40 mg PO DAILY #30 tab 06/01/21 potassium chloride [Klor-Con M20] 20 meq PO DAILY #30 tab 06/01/21 prednisone See Taper PO DAILY #30 tab 06/01/21 The patient's discharge medication list was reviewed for discrepancies and discrepancies were resolved.
--- NOTE | 2021-06-04 15:44 | CASEMGMT ---
DOC CM Discharge Follow-up Phone Call: NIA: 13 Strata: 3 Call Date: 06/04/21 Discharge Date: 06/01/21 Time of Call: 1545 Duration: 1 Admitting Diagnosis: Acute hypoxic resp failure, COPD/Asthma exacerbation DOC BOLTON attempted to complete follow-up phone call after recent hospitalization. No answer, voice message left with return contact information.
== END 2021-06-01 10:30 | disposition home or self-care (01) | DRG 140 ==
LOC: ED 03:49 → ICU 04:30 → PCU 05-26 18:10
PROVIDERS: Internal Medicine; Internal Medicine Critical Care Medicine; Admitting Provider Family Medicine; Emergency Provider Emergency Medicine; PCP Internal Medicine; Visit Provider Student in an Organized Health Care Education/Training Program
DX: J44.1 Chronic obstructive pulmonary disease with (acute) exacerbation (principal); J96.21 Acute and chronic respiratory failure with hypoxia; J96.22 Acute and chronic respiratory failure with hypercapnia; E11.42 Type 2 diabetes mellitus with diabetic polyneuropathy; E66.01 Morbid (severe) obesity due to excess calories; G89.4 Chronic pain syndrome; I11.0 Hypertensive heart disease with heart failure; I50.31 Acute diastolic (congestive) heart failure; G47.33 Obstructive sleep apnea (adult) (pediatric); I27.81 Cor pulmonale (chronic); E78.5 Hyperlipidemia, unspecified; G93.41 Metabolic encephalopathy; K21.9 Gastro-esophageal reflux disease without esophagitis; F17.210 Nicotine dependence, cigarettes, uncomplicated; D75.1 Secondary polycythemia; B17.9 Acute viral hepatitis, unspecified; Z99.81 Dependence on supplemental oxygen; Z79.899 Other long term (current) drug therapy; Z79.4 Long term (current) use of insulin; Z79.51 Long term (current) use of inhaled steroids; Z91.19 Patient's noncompliance with other medical treatment and regimen; Z68.41 Body mass index [BMI] 40.0-44.9, adult
CPT/HCPCS: 31500; 31720; 36415; 36600; 51702; 71045; 71275; 76705; 80048; 80053; 80329; 82077; 82803; 82962; 82977; 83605; 83690; 83735; 84100; 84145; 84484; 85025; 87040; 87070; 87086; 87205; 87426; 87449; 87633; 87641; 93005; 93306; 94002; 94003; 94640; 94660; 94762; 97110; 97162; 97166; 97530; 97533; 97535; 97802; 97803; 99251; 99285; J7030; J7050; Q9957; Q9967; A4216; C8929; G0463; G0480; J0330; J1940; J2405; J3010; J3490

== ENCOUNTER 2021-08-16 03:47 | Inpatient (IN) | payer MEDICAID, SELFPAY ==
[2021-08-16] VITALS (16 sets, daily range): BP systolic 137–174; BP diastolic 81–111; PULSE 88–102; RESP 16–30; TEMP 36.3–36.8; O2SAT 90–100; BMI 42.8; BMI 42.6
--- NOTE | 2021-08-16 03:58 | RAD_ITS ---
STUDY: X-RAY CHEST REASON FOR EXAM: Female, 50 years old. sob TECHNIQUE: Single AP portable view of the chest. COMPARISON: May 23, 2021 chest x-ray FINDINGS: Lungs are underexpanded. There is persistent lower lobe atelectasis fairly similar to the prior study. There is no demonstrated pleural abnormality. There is mild to moderate cardiac enlargement. Normal mediastinum and milton. Normal visualized pulmonary arteries. Normal visualized aortic arch and descending thoracic aorta. Normal visualized thoracic spine. Normal visualized ribs, clavicles, and shoulders. There is no demonstrated abnormality of the visualized soft tissue structures of the upper abdomen. RAD/Chest 1 View (Portable) IMPRESSION: Underexpansion of the lungs lower lobe atelectasis and/or scarring. Similar to prior study. Moderate cardiomegaly. Electronically Signed: Angle Herrera MD at 4:17 EDT Tel , Service support ,
--- NOTE | 2021-08-16 03:59 | EKG12_ITS ---
Test Reason : DYSRHYTHMIA Blood Pressure : / mmHG Vent. Rate : 092 BPM Atrial Rate : 092 BPM P-R Int : 144 ms QRS Dur : 076 ms QT Int : 354 ms P-R-T Axes : 055 107 034 degrees QTc Int : 437 ms Normal sinus rhythm Septal infarct , age undetermined Abnormal ECG Confirmed by SATNAM MARTINEZ, AMARA ([id number]), map editor DOV LONGO ([id number]) on 08/17/2021 1:20:22 PM Referred By: DACIA Confirmed By:MP HAY MD
--- NOTE | 2021-08-16 04:03 | EX.ED.DYSGE1 ---
HPI History of Present Illness Chief Complaint: Shortness of Breath Informant: patient Onset/Context/Timing Onset: Weeks (Worsened over the past week) Context: Gradual Onset Current Severity: Mild Maximum Severity: Moderate Narrative Narrative: Patient presents secondary to increased shortness of breath. She is a history of COPD and wears 7 L of oxygen at baseline. Patient states for the last week she is had increased shortness of breath with wheezing and cough. No fever or chills. She finished her last round of prednisone several weeks ago. [facility] Medical History (Updated 08/16/21 @ 04:[address] Nola Hwang MD) Asthma Benign essential hypertension Chronic back pain COPD COPD with acute exacerbation Diabetes mellitus, type II GERD (gastroesophageal reflux disease) Herniated thoracic disc without myelopathy Hypertensive urgency Obesity (BMI 30-39.9) Otitis media Home Medications amlodipine 10 mg PO DAILY 08/13/15 [History Last Taken 10/13/20] Oxygen, Home [Home Oxygen] 4 - 6 lpm NASAL PRN PRN #0 04/06/19 [Rx Last Taken 07/11/20] atorvastatin 10 mg PO DAILY 10/14/20 [History Last Taken 10/13/20] gabapentin 1,200 mg PO TID 10/14/20 [History Last Taken 10/14/20 1200] lisinopril 40 mg PO DAILY #0 10/17/20 [Rx Last Taken 10/13/20 08:00] Lantus Solostar U-100 Insulin 46 unit SUBCUT QHS 05/29/21 [History Last Taken Unknown] albuterol sulfate 2 puff INHALATION Q4H PRN PRN 05/29/21 [History Last Taken Unknown] budesonide-formoterol [Symbicort] 2 puff INHALATION BID 05/29/21 [History Last Taken Unknown] cholecalciferol (vitamin D3) [Vitamin D3] 1,000 unit PO DAILY 05/29/21 [History Last Taken Unknown] ipratropium-albuterol 3 ml INHALATION Q4H PRN PRN 05/29/21 [History Last Taken Unknown] omeprazole 20 mg PO DAILY 05/29/21 [History Last Taken Unknown] furosemide 40 mg PO DAILY #30 tab 06/01/21 [Rx Last Taken Unknown] potassium chloride [Klor-Con M20] 20 meq PO DAILY #30 tab 06/01/21 [Rx Last Taken Unknown] Allergy/AdvReac Type Severity Reaction Status Date / Time aspirin Allergy Anaphylaxis Verified 05/23/21 01:53 ceftriaxone [From Rocephin] Allergy Rash Verified 05/25/21 09:07 cyclobenzaprine HCl Allergy Rash Verified 05/23/21 01:53 [From Flexeril] levofloxacin [From Levaquin] Allergy Rash Verified 05/23/21 01:53 naproxen [From Naprosyn] Allergy Anaphylaxis Verified 05/23/21 01:53 bupropion HCl AdvReac nightmares Verified 05/23/21 01:53 [From Wellbutrin] doxycycline AdvReac Diarrhea Verified 05/23/21 01:53 Family History Mother Breast cancer Cancer Skin Father COPD (chronic obstructive pulmonary disease) Hypertension Heart disease Cancer Skin Surgical History History of section History of tubal ligation Social History household members: significant other Smoking Status: Former smoker Tobacco: How many years used: 24 how long ago did patient quit smokin, 1ppd second hand exposure: Yes alcohol intake: never substance use type: does not use ROS ROS ED Constitutional Constitutional ED: Denies chills or fever(s) Eyes Eyes: Denies change in vision Cardiovascular Cardiovascular: Denies chest pain Respiratory/Chest Respiratory/Chest: Reports cough, dyspnea and sputum Gastrointestinal Gastrointestinal: Denies abdominal pain or vomiting Musculoskeletal Musculoskeletal: Denies arthralgias Integumentary Denies rash Neurologic Neurologic: Reports weakness Allergic/Immunologic Allergic/Immunologic ED: Denies urticaria EXAM Physical Exam Const Vital Signs: 08/16/21 03:48 08/16/21 03:52 08/16/21 04:12 Temperature 97.4 F L 97.4 F L Temperature Source Temporal Temporal Pulse Rate 95 95 96 Respiratory Rate 16 19 H 24 H Respiratory Effort Short of Breath Respiratory Depth Deep Respiratory Pattern Hyperpnea Tachypnea Blood Pressure 161/92 H Blood Pressure Mean 115 Pulse Ox 94 93 Oxygen Delivery Method Nasal Cannula Nasal Cannula Oxygen Flow Rate (L/min) 7 7 Positive well nourished and well developed General Appearance ED: well developed HEENT Reports normocephalic and head/scalp atraumatic Eyes PERRL and EOMs intact bilaterally Neck supple Chest Wall inspection of chest normal and palpation of chest normal Resp normal respiratory effort Auscultation: wheezes and diminished lung sounds Cardio regular rate and regular rhythm GI normal to inspection, nondistended, normoactive bowel sounds Palpation: soft Extremity normal to inspection Neuro oriented x3 Sensorium / Orientation: alert Psych mental status grossly normal Skin no rashes or lesions noted MDM MDM MDM Narrative Medical decision making narrative: Patient is given a DuoNeb treatment. Lab work, chest x-ray, EKG obtained. Covid swab ordered. Patient is also given IV Solu-Medrol. Lab Data Attestation: I reviewed the patient's lab results. Labs: Laboratory Results - last 24 hr 08/16/21 08/16/21 03:57 03:57 WBC 11.8 H RBC 5.49 H Hgb 16.1 H Hct 54.1 H MCV 98.5 MCH 29.3 MCHC 29.8 L RDW Std Deviation 48.8 H RDW Coeff of Marcy 13.3 Plt Count 265 MPV 11.6 Immature Gran % (Auto) 0.500 Neut % (Auto) 78.7 H Lymph % (Auto) 13.6 L [place] % (Auto) 5.9 Eos % (Auto) 0.7 Baso % (Auto) 0.6 Absolute Neuts (auto) 9.3 H Absolute Lymphs (auto) 1.60 Nucleated RBC % 0 Sodium 136 Potassium 4.4 Chloride 91 L Carbon Dioxide > 45.0 H* Anion Gap TNP BUN 9 Creatinine 0.53 L Estim Creat Clear Calc 101.55 Est GFR (MDRD) Af Amer 157 Est GFR (MDRD) Non-Af 130 BUN/Creatinine Ratio 16.9 Glucose 259 H Calcium 8.9 Troponin I High Sens 201 H* Radiography Chest X-Ray - ED: 1 View, Read by ED Physician and Chronic Changes Diagnostic Testing: Radiology Impression Chest X-Ray 08/16/21 03:58 IMPRESSION: Underexpansion of the lungs lower lobe atelectasis and/or scarring. Similar to prior study. Moderate cardiomegaly. Electronically Signed: Angle Herrera MD at 4:17 EDT Tel , Service support , EKG Initial EKG: Attestation: I personally reviewed and interpreted this EKG as follows: Interpretation: Sinus Rhythm (Sinus at 92 with no acute ischemia.) Treatment and Re-Evaluation Comments:: Following aerosol treatment patient's O2 sat did drop slightly. She was increased on her O2 for short time but is now back down to her baseline nasal cannula. O2 sat is 90%. Patient's labs are reviewed. Patient's troponin elevated at 201, likely secondary to demand. Chest x-ray shows chronic changes and no focal infiltrate. Patient discussed with hospitalist for admission. She has an anaphylactic reaction to aspirin and therefore this will be held. Patient does have allergies to multiple antibiotics and states typically Zithromax works well for her with her COPD exacerbations. Discharge Plan Triage Chief Complaint: Shortness of Breath ED Provider: Nola Hwang Dx/Rx/DC Orders Clinical Impression: COPD with acute exacerbation Prescriptions: No Action amlodipine 10 MG tablet 10 mg PO DAILY RF: 0 Oxygen, Home [Home Oxygen] 4 - 6 lpm NASAL PRN PRN (Reason: breathing) Qty: 0 RF: 0 gabapentin 600 MG tablet 1,200 mg PO TID RF: 0 atorvastatin 10 MG tablet 10 mg PO DAILY RF: 0 lisinopril 40 MG tablet 40 mg PO DAILY Qty: 0 RF: 0 ipratropium-albuterol 0.5 mg-3 mg(2.5 mg base)/3 mL solution for nebulization 3 ml inhalation Q4H PRN PRN (Reason: COPD) RF: 0 omeprazole 20 mg capsule,delayed release(DR/EC) 20 mg PO DAILY RF: 0 albuterol sulfate 90 mcg/actuation HFA aerosol inhaler 2 puff INHALATION Q4H PRN PRN (Reason: COPD) RF: 0 cholecalciferol (vitamin D3) [Vitamin D3] 25 mcg (1,000 unit) tablet 1,000 unit PO DAILY RF: 0 budesonide-formoterol [Symbicort] 160-4.5 mcg/actuation HFA aerosol inhaler 2 puff INHALATION BID RF: 0 Lantus Solostar U-100 Insulin 100 unit/mL (3 mL) insulin pen 46 unit SUBCUT QHS RF: 0 furosemide 40 mg tablet 40 mg PO DAILY Qty: 30 RF: 1 potassium chloride [Klor-Con M20] 20 mEq tablet,ER particles/crystals 20 meq PO DAILY Qty: 30 RF: 1 Primary Care Provider: Rita Melton Referrals: Rita Melton MD [Primary Care Provider] - Disposition Disposition: Acute Care Hospital [facility]
[2021-08-16] MEDS: MethylPREDNISolone 125 MG/2 ML Vial IV (04:08)
[2021-08-16] MEDS: Ipratropium/Albuterol Sulfate 3 ML AMPUL.NEB INHALATION ×3 (04:12→18:47)
[2021-08-16 04:15] LABS: Absolute Neutrophil Count 9.3 X10^3/uL (2.0-7.7); Basophil# 0.07 X10^3/uL; Basophil% 0.6 % (0-1); Eosinophil# 0.08 X10^3/uL; Eosinophils% 0.7 % (0-5); Hematocrit 54.1 % (37-47); Hemoglobin 16.1 g/dL (12.0-15.0); Lymphocyte % 13.6 % (19-41); Mean Corp Hgb Conc 29.8 g/dL (32-36); Mean Corpuscular Hgb 29.3 pg (27.0-32.0); Mean Corpuscular Volume 98.5 fL (81-99); Mean Platelet Vol. 11.6 fl (6.2-12.0); Monocyte% 5.9 % (0-10); NRBC Flagged by Analyzer 0 % (0-5); Neutrophil # 9.27 X10^3/uL (2.7-7.7); Neutrophil % 78.7 % (47-70); POSITIVE COUNT YES; Platelet Count 265 K/mm3 (150-450); RBC Distribution Width CV 13.3 % (11.6-14.6); RBC Distribution Width SD 48.8 fl (35.1-43.9); Red Blood Count 5.49 M/mm3 (4.2-5.4); White Blood Count 11.8 K/mm3 (4.4-11.0)
[2021-08-16 04:16] LABS: Differential Indicated SCAN CRITERIA MET
[2021-08-16 04:34] LABS: BUN 9 mg/dL (7-18); BUN/Creat Ratio 16.9 RATIO (10-20); Calcium,Total 8.9 mg/dL (8.5-10.1); Carbon Dioxide > 45.0 mmol/L (21.0-32.0); Chloride 91 mmol/L (98-107); Creatinine, Serum 0.53 mg/dL (0.55-1.02); EST Glomerular Filtration Rate 130 mL/min (>60); Est Glom Filt Rate - Afr Amer 157 mL/min (>60); Estimated Creatinine Clearance 101.55 ml/min; Glucose 259 mg/dL (74-106); Potassium 4.4 mmol/L (3.5-5.1); Sodium Level 136 mmol/L (136-145); Troponin-I HS 201 pg/mL (3.0-54.0)
--- NOTE | 2021-08-16 04:52 | HP.PCM.HOS_ITS ---
HPI - General General Date of Admission: 08/16/21 Date of Service: 08/16/21 Chief Complaint: Dyspnea, wheezing. HPI Narrative The patient is a 50 y/o F w/ PMHx: Asthma/COPD with chronic hypoxic respiratory failure (up to now 7L NC), Diabetes mellitus type II, Morbid Obesity, GERD, HTN, Chronic back pain, Former Tobacco use who presents to the [facility] ED on 08/16/21 with history of progressively worsening fatigue, malaise, dyspnea and wheezing as well as ongoing nonproductive cough over the last 1 week with subjectively reported chills, not improving prompting ED evaluation. Patient has not been COVID vaccinated. Work-up in the ED included T 97.4, heart rate 95, BP 161/92, respiratory rate ranging 16-30, 90% to 94% on 7 L nasal cannula, CBC with WBC 11.8, hemoglobin 16.1, platelet 265 with left shift, BMP with chloride 91, carbon oxide greater than 45, glucose 259, high-sensitivity troponin 201 with most recent prior 05/23/2020 189.9, chest x-ray with underexpansion of the lungs with lower lobe atelectasis and or scarring similar to prior study, rapid Covid antigen negative, blood culture x2 pending per ED. in the ED patient ministered Solu-Medrol, DuoNeb therapy as well as azithromycin 500 mg IV x1. [facility] Medical History (Updated 08/16/21 @ 04:[address] Nola Hwang MD) Asthma Benign essential hypertension Chronic back pain COPD COPD with acute exacerbation Diabetes mellitus, type II GERD (gastroesophageal reflux disease) Herniated thoracic disc without myelopathy Hypertensive urgency Obesity (BMI 30-39.9) Otitis media Home Medications amlodipine 10 mg PO DAILY 08/13/15 [History Last Taken 10/13/20] Oxygen, Home [Home Oxygen] 4 - 6 lpm NASAL PRN PRN #0 04/06/19 [Rx Last Taken 07/11/20] atorvastatin 10 mg PO DAILY 10/14/20 [History Last Taken 10/13/20] gabapentin 1,200 mg PO TID 10/14/20 [History Last Taken 10/14/20 1200] lisinopril 40 mg PO DAILY #0 10/17/20 [Rx Last Taken 10/13/20 08:00] Lantus Solostar U-100 Insulin 46 unit SUBCUT QHS 05/29/21 [History Last Taken Unknown] albuterol sulfate 2 puff INHALATION Q4H PRN PRN 05/29/21 [History Last Taken Unknown] budesonide-formoterol [Symbicort] 2 puff INHALATION BID 05/29/21 [History Last Taken Unknown] cholecalciferol (vitamin D3) [Vitamin D3] 1,000 unit PO DAILY 05/29/21 [History Last Taken Unknown] ipratropium-albuterol 3 ml INHALATION Q4H PRN PRN 05/29/21 [History Last Taken Unknown] omeprazole 20 mg PO DAILY 05/29/21 [History Last Taken Unknown] furosemide 40 mg PO DAILY #30 tab 06/01/21 [Rx Last Taken Unknown] potassium chloride [Klor-Con M20] 20 meq PO DAILY #30 tab 06/01/21 [Rx Last Taken Unknown] Allergy/AdvReac Type Severity Reaction Status Date / Time aspirin Allergy Anaphylaxis Verified 05/23/21 01:53 ceftriaxone [From Rocephin] Allergy Rash Verified 05/25/21 09:07 cyclobenzaprine HCl Allergy Rash Verified 05/23/21 01:53 [From Flexeril] levofloxacin [From Levaquin] Allergy Rash Verified 05/23/21 01:53 naproxen [From Naprosyn] Allergy Anaphylaxis Verified 05/23/21 01:53 bupropion HCl AdvReac nightmares Verified 05/23/21 01:53 [From Wellbutrin] doxycycline AdvReac Diarrhea Verified 05/23/21 01:53 Family History Mother Breast cancer Cancer Skin Father COPD (chronic obstructive pulmonary disease) Hypertension Heart disease Cancer Skin Surgical History History of section History of tubal ligation Social History household members: significant other Smoking Status: Former smoker Tobacco: How many years used: 24 how long ago did patient quit smokin, 1ppd second hand exposure: Yes alcohol intake: never substance use type: does not use ROS ROS Narrative Admission Review of Systems: CONSTITUTIONAL: No weight loss, fever, + chills, weakness or fatigue. HEENT: Eyes: No visual loss, blurred vision, double vision or yellow sclerae. Ears, Nose, Throat: No hearing loss, sneezing, congestion, runny nose or sore throat. SKIN: No rash or itching, lesions, wounds. CARDIOVASCULAR: No chest pain, chest pressure or chest discomfort, palpitations, edema, orthopnea, syncopal events. RESPIRATORY: + shortness of breath, cough without marked sputum, wheezing, No hemoptysis. GASTROINTESTINAL: No anorexia, nausea, vomiting or diarrhea, abdominal pain, melena, BRBPR. GENITOURINARY: No dysuria, frequency, urgency or retention. NEUROLOGICAL: No headache, dizziness, syncope, paralysis, ataxia, numbness or tingling in the extremities, focal weakness, change in bowel or bladder control, seizure. MUSCULOSKELETAL: + muscle, back pain, joint pain or stiffness. HEMATOLOGIC: No anemia, bleeding or bruising. LYMPHATICS: No enlarged nodes. No history of splenectomy. PSYCHIATRIC: + history of depression or anxiety. ENDOCRINOLOGIC: + reports of sweating, cold or heat intolerance. No polyuria or polydipsia. ALLERGIES: + history of asthma, hives, eczema or rhinitis. Vital Signs Vital Signs Vital Signs: 08/16/21 03:48 08/16/21 03:52 08/16/21 04:12 Temperature 97.4 F L 97.4 F L Temperature Source Temporal Temporal Pulse Rate 95 95 96 Respiratory Rate 16 19 H 24 H Respiratory Effort Short of Breath Respiratory Depth Deep Respiratory Pattern Hyperpnea Tachypnea Blood Pressure 161/92 H Blood Pressure Mean 115 Pulse Ox 94 93 Oxygen Delivery Method Nasal Cannula Nasal Cannula Oxygen Flow Rate (L/min) 7 7 08/16/21 04:47 Temperature 97.4 F L Temperature Source Temporal Pulse Rate 88 Respiratory Rate 30 H Respiratory Effort Respiratory Depth Respiratory Pattern Blood Pressure 163/111 H Blood Pressure Mean 128 Pulse Ox 90 Oxygen Delivery Method Nasal Cannula Oxygen Flow Rate (L/min) 7 Weight Weight: 234 lb 2.095 oz Body Mass Index (BMI) 42.8 Physical Exam Narrative Physical Examination: General: Awake, alert, oriented x3, seated upright in the ED bed, fatigued appearing otherwise no acute distress, currently maintained on 7 L nasal cannula which is patient most recent chronic level of usage. Skin: Normal color, normal turgor, no icterus, no cyanosis. HEENT: AT/NC, EOMI, PERRLA, dry MM, no carotid bruits or JVD noted. Lungs: Diffusely diminished, greater bases, no marked wheezing but extremely tight, no marked evidence of any respiratory distress, fatigued appearing however, no rhonchi or rales. End expiratory wheezing softly noted diffusely, increased work of breathing, accessory muscle usage, evident respiratory d istress. Heart: Regular rate and regular rhythm; no gallop, rub audible. Abdomen: Soft, morbidly obese, NTTP, ND, normal BS, no obvious evidence of HSM however habitus makes examination difficult. Extremities: No cyanosis, no clubbing, mild bilateral ankle nonpitting edema. Neurological: Awake, alert, oriented as noted, cognitive function appears intact; pupils equally reactive to light and accommodation, cranial nerves grossly normal, moving all 4 extremities, no focal deficits, strength moderately to severely global decrease secondary to acute presentation. Psychiatric: Affect appears fatigued, no acute evidence of depressive or anxiety feelings. Results Lab / Micro Data Result Diagrams: 08/16/21 03:57 08/16/21 03:57 Labs: Laboratory Results - last 24 hr 08/16/21 03:57: WBC 11.8 H, RBC 5.49 H, Hgb 16.1 H, Hct 54.1 H, MCV 98.5, MCH 29.3, MCHC 29.8 L, RDW Std Deviation 48.8 H, RDW Coeff of Marcy 13.3, Plt Count 265, MPV 11.6, Immature Gran % (Auto) 0.500, Neut % (Auto) 78.7 H, Lymph % (Auto) 13.6 L, [place] % (Auto) 5.9, Eos % (Auto) 0.7, Baso % (Auto) 0.6, Absolute Neuts (auto) 9.3 H, Absolute Lymphs (auto) 1.60, Nucleated RBC % 0 08/16/21 03:57: Sodium 136, Potassium 4.4, Chloride 91 L, Carbon Dioxide > 45.0 H*, Anion Gap TNP, BUN 9, Creatinine 0.53 L, Estim Creat Clear Calc 101.55, Est GFR (MDRD) Af Amer 157, Est GFR (MDRD) Non-Af 130, BUN/Creatinine Ratio 16.9, Glucose 259 H, Calcium 8.9, Troponin I High Sens 201 H* Micro: Microbiology 08/16/21 04:13 Nasal Secretion SARS-CoV-2 Antigen (Rapid) - Final Radiology Impression Chest X-Ray 08/16/21 03:58 IMPRESSION: Underexpansion of the lungs lower lobe atelectasis and/or scarring. Similar to prior study. Moderate cardiomegaly. Electronically Signed: Angle Herrera MD at 4:17 EDT Tel , Service support , Assessment & Plan Assessment/Plan (1) Acute exacerbation of chronic obstructive pulmonary disease: (2) Elevated troponin: PLAN: The patient is a 50 y/o F w/ PMHx: Asthma/COPD with chronic hypoxic respiratory failure (up to now 7L NC), Diabetes mellitus type II, Morbid Obesity, GERD, HTN, Chronic back pain, Former Tobacco use who presents to the [facility] ED on 08/16/21 with history of progressively worsening fatigue, malaise, dyspnea and wheezing as well as ongoing nonproductive cough over the last 1 week with subjectively reported chills, not improving prompting ED evaluation. 1. Acute on chronic COPD exacerbation w/ Acute Respiratory Insufficiency on Chronic Hypoxic Respiratory Failure: Will admit to the PCU given #2 to be cautious, continue oxygen supplementation with home O2 7 L nasal cannula, continue ATC duonebs, PRN albuterol, IV methylprednisolone, HOB, IS parameters, IV azithromycin with pending sputum cultures, respiratory viral panel, procalcit onin. 2. Indeterminate cardiac enzyme suspected secondary to hypoxemia with #1, demand ischemia: EKG in ED sinus rhythm with nonspecific changes with no acute evidence of ischemia, CXR w/ chronic COPD type changes, initial trop 201. Will place on a monitored bed to assure no acute myocardial infarction with serial cardiac enzymes and EKGs. 05/29/2021 echocardiogram with grossly normal LV size and wall motion, hyperdynamic LV systolic function, EF 75%, trivial TVI, transmitral Doppler flow suggestive of impaired relaxation of left ventricle. Will maintain on Plavix given aspirin allergy, FLP in a.m., magnesium level requested. 2. Hypertension: Continue home regimen including lisinopril, amlodipine, Lasix, PRN hydralazine. 3. Hyperlipidemia: Continue home statin regimen. 4. Diabetes mellitus type II with peripheral neuropathy: Hold oral home regimen, continue home insulin regimen, ADA diet, accu checks w/ ISS, continue home gabapentin regimen. 5. Morbid Obesity: Weight loss and lifestyle changes encouraged. 6. CARSON: Unable to tolerate BiPAP. 7. GERD: Continue patient on PPI. 8. DVT prophylaxis: SCDs, Lovenox. 9. CODE status: Patient does not have healthcare power of prosecuting attorney nor living will set up. Discussed CODE status at length including difference between FULL c ode, DNR-CCA and DNR-CC status. Following discussions about the differences in these status, requested Full Code status. Advanced Care Planning Face to Face Time: 16 minutes. Charges/Coding Visit Charges Inpatient E&M: 32298 Init Hosp L3 Procedures Hospitalists Procedures: 53725 Advncd Care Plan 30 Min
[2021-08-16 05:16] LABS: Magnesium 1.7 mg/dL (1.6-2.6)
--- NOTE | 2021-08-16 06:03 | PCS.PANDOC ---
PANDEMIC DOCUMENTATION INITIATED: Date: 07/09/2021 Time: 190
[2021-08-16] MEDS: Gabapentin 600 MG Tablet 1200 MG PO ×2 (06:21→14:10)
[2021-08-16 06:30] LABS: Bedside Glucose 391 mg/dL (70-110)
[2021-08-16] MEDS: Insulin Lispro 100 UNIT/ML INSULN.PEN SC ×2 (06:31→21:28)
--- NOTE | 2021-08-16 06:55 | CPS ---
Critical value verified times two. Reported to PCU charge nurse.Copy Cortexted to .
[2021-08-16 06:56] LABS: Allen Test Positive; Base Excess 15 mmol/L (-2 to +2); Bicarbonate 41.5 mmol/L (22-26); Blood Gas Specimen Type ART; O2 Delivery Device HFNC; PO2 85 mmHG (75-100); SITE L Radial; SO2 95 % (95-99); Total Carbon Dioxide 44 mmol/L; pCO2 82.4 mmHg (35-45); pH 7.31 (7.35-7.45)
[2021-08-16 07:44] LABS: Troponin-I HS 197 pg/mL (3.0-54.0)
[2021-08-16] MEDS: Azithromycin 250 MG Tablet 500 MG PO (08:47)
[2021-08-16] MEDS: amLODIPine 10 MG Tablet PO (08:48)
[2021-08-16] MEDS: Furosemide 40 MG Tablet PO (08:48)
[2021-08-16] MEDS: Lisinopril 40 MG Tablet PO (08:48)
[2021-08-16] MEDS: Potassium Chloride Oral Tablet 20 MEQ PO (08:48)
[2021-08-16] MEDS: Pantoprazole Sodium 20 MG Tablet PO (08:48)
[2021-08-16] MEDS: Clopidogrel Bisulfate 75 MG Tablet PO (08:48)
[2021-08-16 08:49] LABS: Procalcitonin < 0.04 ng/mL (0.00-0.09)
--- NOTE | 2021-08-16 09:55 | CASEMGMT ---
DOC BOLTON FOOD SALES CLERK CM to room to meet with patient for initial transition planning/care coordination assessment. DOC BOLTON introduced self and role at [facility]. Pt voices understanding and consents to assessment at this time. Pt resting in bed in no distress at this time. Pt is A/O at this time and answers all questions appropriately. Care providers, pharmacy, and demographics verified/updated at this time. PCP: Dr Melton Specialists: Dr Cabezas, fuel handler Noted referral to Palliative Care was made last admission. Call placed to [facility] and spoke w/Nola. She states they made mutiple attempts to contact pt after she returned home without success. DOC BOLTON asked pt if she would like to speak w/someone from Palliative Care and she states no, I don't want to talk to them. Preferred Pharmacy: [facility] Insurance: [employer] Prescription Benefit: yes Living Will/HPOA: none. Pt was provided w/paperwork last admit, but states did not end up completing them and is not interested in talking w/SW at this time for assistance. LNOK: parents, Nereida and Rafael. 2 children. One is an adult and the other one lives w/his father in [facility]. Pt lives w/significant other Adrian Living Arrangements: Patient lives with significant other in a mobile home with 6 steps and railing to enter the home. Pt states the railing has been fixed since last admission. Patient states she is independent at home w/ADL's and IADL's, but that it is difficult to get around in her home at times. Transportation: significant other, Adrian. DME: Patient states she has the following @ home: Oxygen thru [employer]. Pt has concentrator and portable tanks. Pt states she does not have portable tank @ [facility] at this time, but Adrian can bring it in @ d/c. Pt was sent home last admission w/O2 orders for 4 L/M @ rest and 7 L/M w/exertion. Pt also has a walker and shower chair. She states she would like a BSC. Pt made aware insurance may not cover for BSC. Inquired what DME co she would like to use for BSC, if they would cover for one and then she stated, I don't want to talk about it anymore. HHC/SNF: Patient denies previous HHC or SNF. Discussed option of HHC or CCN. Pt declines both, stating she is not interested. Pt wishes to return home and states has no concerns with going home at time of discharge. CM to follow for discharge planning/needs. Pt voices no further concerns/needs at this time. Advised pt to ask for CM if any further questions/concerns/needs arise. Voices understanding. PLAN: Home w/discharge plans in place. Betina CUELLAR RN CM
[2021-08-16 10:35] LABS: Troponin-I HS 200 pg/mL (3.0-54.0)
--- NOTE | 2021-08-16 12:02 | PCM.HOSP.N ---
Hospitalist Note Patient is a 50-year-old lady with history of COPD admitted with progressive shortness of breath. An assessment of COPD with acute exacerbation made. Patient admitted to regular nursing floor for subsequent management. Patient was also found to have indeterminate cardiac enzymes level suspected to be secondary to demand ischemia as a result of hypoxia. Patient seen and examined, her initial assessment including history and physical diagnostic data and management orders reviewed will follow.
[2021-08-16 13:05] LABS: Bedside Glucose > 500 mg/dL (70-110)
[2021-08-16 14:06] LABS: Glucose 654 mg/dL (74-106)
[2021-08-16] MEDS: 0.9% Saline Lock 10 ML Syringe IV (14:09)
[2021-08-16] MEDS: Insulin Lispro 100 UNIT/ML INSULN.PEN 20 UNIT SC ×2 (14:33→16:45)
--- NOTE | 2021-08-16 16:08 | NURSING ---
GIZZARD PULLER reported that pt stated she didn't feel well and felt like she couldn't breathe. Into room and pt's oxygen was lying on the floor. Pt sitting up at edge of bed stating she felt like she was having heart palpitations. Pt's pulse ox 53% on room air. O2 re-applied and turned up to 15L. Pt sats quickly back up to 88%. Pt states she is feeling a lot better now.
[2021-08-16 19:56] LABS: Bedside Glucose 469 mg/dL (70-110)
[2021-08-16] MEDS: Atorvastatin Calcium 10 MG Tablet PO (21:29)
[2021-08-16] MEDS: Enoxaparin 40 MG/0.4 ML Syringe SC (21:30)
[2021-08-16 21:45] LABS: Bedside Glucose 262 mg/dL (70-110)
[2021-08-17] VITALS (11 sets, daily range): BP systolic 139–147; BP diastolic 78–86; PULSE 90–99; RESP 16–20; TEMP 36.6–36.8; O2SAT 86–93
--- NOTE | 2021-08-17 02:53 | CPS ---
Pt refuses to wear bipap
[2021-08-17] MEDS: Albuterol 2.5 MG/3 ML VIAL.NEB. INHALATION (04:22)
--- NOTE | 2021-08-17 05:55 | EKG12_ITS ---
Test Reason : AM EKG Blood Pressure : / mmHG Vent. Rate : 095 BPM Atrial Rate : 095 BPM P-R Int : 148 ms QRS Dur : 068 ms QT Int : 344 ms P-R-T Axes : 064 111 022 degrees QTc Int : 432 ms Normal sinus rhythm Septal infarct , age undetermined , cannot be excluded Abnormal ECG Confirmed by CHIKIS MARTINEZ, SUSANA ([id number]), development editor DOV LONGO ([id number]) on 08/20/2021 1:46:40 PM Referred By: DR ADDISON Confirmed By:SUSANA DIOP MD
[2021-08-17] MEDS: Gabapentin 600 MG Tablet 1200 MG PO ×2 (06:07→13:06)
[2021-08-17] MEDS: Insulin Lispro 100 UNIT/ML INSULN.PEN SC ×2 (06:16→12:00)
[2021-08-17 06:21] LABS: Absolute Lymphocyte Count 0.85 X10^3/uL (0.83-4.51); Absolute Neutrophil Count 13.3 X10^3/uL (2.0-7.7); Basophil# 0.02 X10^3/uL; Basophil% 0.1 % (0-1); Hematocrit 51.9 % (37-47); Hemoglobin 15.6 g/dL (12.0-15.0); Lymphocyte # 0.85 X10^3/ul (0.83-4.51); Lymphocyte % 5.7 % (19-41); Mean Corp Hgb Conc 30.1 g/dL (32-36); Mean Corpuscular Hgb 28.9 pg (27.0-32.0); Mean Corpuscular Volume 96.3 fL (81-99); Mean Platelet Vol. 11.3 fl (6.2-12.0); Monocyte% 4.7 % (0-10); NRBC Flagged by Analyzer 0 % (0-5); Neutrophil # 13.25 X10^3/uL (2.7-7.7); Platelet Count 308 K/mm3 (150-450); RBC Distribution Width CV 13.2 % (11.6-14.6); RBC Distribution Width SD 46.9 fl (35.1-43.9); Red Blood Count 5.39 M/mm3 (4.2-5.4); White Blood Count 14.9 K/mm3 (4.4-11.0)
[2021-08-17 06:36] LABS: Bedside Glucose 281 mg/dL (70-110)
[2021-08-17 06:59] LABS: ALB/GLOB Ratio 0.7 RATIO (0.9-2.4); AST(SGOT) 14 U/L (15-37); Alanine Aminotransfer ALT/SGPT 27 U/L (13-56); Albumin, Serum 2.7 g/dL (3.2-5.0); Alkaline Phosphatase 119 U/L (45-117); BUN 16 mg/dL (7-18); BUN/Creat Ratio 28.7 RATIO (10-20); Calcium,Total 9.5 mg/dL (8.5-10.1); Carbon Dioxide > 45.0 mmol/L (21.0-32.0); Chloride 89 mmol/L (98-107); Cholesterol 159 mg/dL (200); Creatinine, Serum 0.56 mg/dL (0.55-1.02); EST Glomerular Filtration Rate 123 mL/min (>60); Est Glom Filt Rate - Afr Amer 149 mL/min (>60); Estimated Creatinine Clearance 96.11 ml/min; Globulin 3.8 g/dL (2.2-4.2); Glucose 288 mg/dL (74-106); High Density Lipoprotein 51 mg/dL; Potassium 4.6 mmol/L (3.5-5.1); Protein, Total 6.5 g/dL (6.4-8.2); Sodium Level 135 mmol/L (136-145); Triglycerides 72 mg/dL; Very Low Density Lipoprotein 14 mg/dL (5-40)
[2021-08-17] MEDS: Ipratropium/Albuterol Sulfate 3 ML AMPUL.NEB INHALATION ×2 (06:59→10:50)
[2021-08-17] MEDS: Potassium Chloride Oral Tablet 20 MEQ PO (10:37)
[2021-08-17] MEDS: Azithromycin 250 MG Tablet 500 MG PO (10:37)
[2021-08-17] MEDS: amLODIPine 10 MG Tablet PO (10:37)
[2021-08-17] MEDS: Lisinopril 40 MG Tablet PO (10:38)
[2021-08-17] MEDS: Clopidogrel Bisulfate 75 MG Tablet PO (10:38)
[2021-08-17] MEDS: Furosemide 40 MG Tablet PO (10:38)
[2021-08-17] MEDS: Pantoprazole Sodium 20 MG Tablet PO (10:38)
[2021-08-17] MEDS: Enoxaparin 40 MG/0.4 ML Syringe SC (10:40)
--- NOTE | 2021-08-17 11:56 | PCM.DC ---
Discharge Instructions Diet Discharge Diet: Carb Control Diet Activity Discharge Activity: Return to Normal Activity Dressing / Incision Call your doctor if you observe: Shortness of breath, Dizziness and Chest pain Follow Up Care Test Results: Test results from this visit will be discussed in further detail at your follow-up appointment, if applicable. Discharge Plan Admission Admit Date/Time: 08/16/21 04:55 Primary Reason for Your Visit: COPD exacerbation Attending Provider: Melquiades Cheng Primary Care Provider: Rita Melton Instructions Additional Instructions / Restrictions: Patient Problems: Altered Health Status related to Hospitalization Patient Goals: *Optimal Level of Health *Keep Appointments *Medication Compliance *Remain Safe Discharge Orders/Prescriptions Prescriptions: New Lantus Solostar U-100 Insulin 100 unit/mL (3 mL) Insulin Pen 40 unit subcut BID Qty: 15 RF: 0 azithromycin 250 mg Tablet 500 mg PO Q24 Qty: 3 RF: 0 clopidogrel 75 mg Tablet 75 mg PO DAILY Qty: 30 RF: 0 amlodipine 10 mg Tablet 10 mg PO DAILY Qty: 30 RF: 0 insulin lispro [Humalog KwikPen Insulin] 100 unit/mL Insulin Pen See Protocol unit subcut ACHS Qty: 15 RF: 0 prednisone 10 mg tablet See Taper mg PO DAILY Qty: 30 RF: 0 Continued Oxygen, Home [Home Oxygen] 4 - 6 lpm NASAL PRN PRN (Reason: breathing) Qty: 0 RF: 0 gabapentin 600 MG tablet 1,200 mg PO TID RF: 0 atorvastatin 10 MG tablet 10 mg PO DAILY RF: 0 lisinopril 40 MG tablet 40 mg PO DAILY Qty: 0 RF: 0 ipratropium-albuterol 0.5 mg-3 mg(2.5 mg base)/3 mL solution for nebulization 3 ml inhalation Q4H PRN PRN (Reason: COPD) RF: 0 omeprazole 20 mg capsule,delayed release(DR/EC) 20 mg PO DAILY RF: 0 albuterol sulfate 90 mcg/actuation HFA aerosol inhaler 2 puff INHALATION Q4H PRN PRN (Reason: COPD) RF: 0 cholecalciferol (vitamin D3) [Vitamin D3] 25 mcg (1,000 unit) tablet 1,000 unit PO DAILY RF: 0 budesonide-formoterol [Symbicort] 160-4.5 mcg/actuation HFA aerosol inhaler 2 puff INHALATION BID RF: 0 furosemide 40 mg tablet 40 mg PO DAILY Qty: 30 RF: 1 potassium chloride [Klor-Con M20] 20 mEq tablet,ER particles/crystals 20 meq PO DAILY Qty: 30 RF: 1 Discontinued Lantus Solostar U-100 Insulin 100 unit/mL (3 mL) insulin pen 46 unit SUBCUT QHS RF: 0 Referrals / Follow Up: Danni Bahena NP, [employer]-C [Nurse Practitioner] - Within 2 Weeks Sheri Howell NP, [employer] WR[employer]C [NON-STAFF] - 08/24/21 9:40 am Disposition Disposition (needs filled in before D/C Order can be placed): Home, Self Care
[2021-08-17] MEDS: Insulin Lispro 100 UNIT/ML INSULN.PEN 10 UNIT SC (12:00)
[2021-08-17 12:20] LABS: Bedside Glucose 465 mg/dL (70-110)
--- NOTE | 2021-08-17 12:24 | CASEMGMT ---
Pt to be tested on 4L at rest and 7L w/ exertion as this was her previous order. Glenroy ROACH CM
--- NOTE | 2021-08-17 12:52 | DS.PCM_ITS ---
Documented by User: Tonya Wallace NP, DIRECTOR MARKET RESEARCH-C 08/17/21 13:05 Providers Date of Admission: 08/16/21 Date of Discharge: 08/17/21 Primary Care Physician: Dr. Rita Melton MD Reason For Visit: COPD EXACERBATION, ELEVATED TROPONIN Diagnosis Discharge Diagnosis (1) Acute exacerbation of chronic obstructive pulmonary disease: Status: Chronic Code(s): J44.1 - Chronic obstructive pulmonary disease with (acute) exacerbation (2) Elevated troponin: Status: Acute Code(s): R77.8 - Other specified abnormalities of plasma proteins Medications at Discharge Home Medications Oxygen, Home [Home Oxygen] 4 - 6 lpm NASAL PRN PRN #0 04/06/19 atorvastatin 10 mg PO DAILY 10/14/20 gabapentin 1,200 mg PO TID 10/14/20 lisinopril 40 mg PO DAILY #0 10/17/20 albuterol sulfate 2 puff INHALATION Q4H PRN PRN 05/29/21 budesonide-formoterol [Symbicort] 2 puff INHALATION BID 05/29/21 cholecalciferol (vitamin D3) [Vitamin D3] 1,000 unit PO DAILY 05/29/21 ipratropium-albuterol 3 ml INHALATION Q4H PRN PRN 05/29/21 omeprazole 20 mg PO DAILY 05/29/21 furosemide 40 mg PO DAILY #30 tab 06/01/21 potassium chloride [Klor-Con M20] 20 meq PO DAILY #30 tab 06/01/21 amlodipine 10 mg PO DAILY #30 tab 08/17/21 azithromycin 500 mg PO Q24 #3 tab 08/17/21 clopidogrel 75 mg PO DAILY #30 tab 08/17/21 insulin glargine [Lantus Solostar U-100 Insulin] 40 unit SUBCUT BID #15 ml 08/17/21 insulin lispro [Humalog KwikPen Insulin] See Protocol SUBCUT ACHS #15 ml 08/17/21 prednisone See Taper PO DAILY #30 tab 08/17/21 Hospital Course Operations None Procedures None Summary of Care Provided Minutes Spent on Discharge: 35 Hospital Course: Patient is a 50-year-old female admitted 08/16/2021 due to dyspnea and wheezing. 1. Acute on chronic hypoxic and hypercapnic respiratory failure secondary to exacerbation of chronic COPD-IV Solu-Medrol during admission. Azithromycin empirically to complete 5-day course. Transition to prednisone taper at discharge. Continue home inhaler/aerosol regimen at discharge. Chest x-ray with chronic COPD changes. Patient reports her home oxygen order is for 3 to 7 L nasal cannula. Walking pulse ox prior to discharge to ensure patient maintains appropriate O2 saturation within home oxygen requirements. Patient has been referred to pulmonary medicine in the past however states she has not been able to follow-up yet due to things coming up. Follow-up with PCP in 1 week. Follow-up with pulmonary medicine in 2 weeks. 2. Indeterminate cardiac enzymes-suspect demand ischemia related to #1. EKG without ST-T changes. Continue statin, reported allergy to aspirin. Given elevated enzymes, will discharge on Plavix. Echocardiogram 05/29/2021 demonstrated an EF of 75%. Follow-up with PCP to discuss further recommendations on continuing/discontinuing antiplatelet. 3. Type 2 diabetes mellitus, uncontrolled-hemoglobin A1c 09/2020 11%. Recommend repeat A1c pending. Increase home Lantus regimen to 40 units twice daily. Sliding scale lispro added at discharge. Recommend referral to endocrinology. 4. Hypertension-above goal during admission. Home lisinopril continued with addition of amlodipine 10 mg daily. Continue outpatient blood pressure monitoring. 5. Hyperlipidemia-continue statin. 6. Morbid obesity-encouraged diet and lifestyle modifications. 7. CARSON-refuses BiPAP, reports she is unable to tolerate. Follow-up with pulmonary medicine at discharge as noted above. 8. GERD-continue PPI. Patient seen and examined prior to discharge. Physical assessment as noted below. Patient is stable for discharge with follow up recommendations as noted above. This patient was seen by DILMA Gomez under the supervision of Dr. Cheng. Physical Exam Const alert, oriented x3 and no apparent distress Constitutional Narrative: Appears older than stated age. Orientation / Consciousness: awake, oriented to person, oriented to place and oriented to time HEENT normocephalic and moist oral mucous membranes Eyes PERRL, EOMs intact bilaterally and conjunctivae normal Neck no lymphadenopathy Resp Auscultation: wheezes expiratory wheezes (Mild, improved) and diminished lung sounds Cardio regular rate, regular rhythm and no murmurs Peripheral Pulses: pulses 2+ throughout GI normal to inspection, nondistended, normoactive bowel sounds, non-tender and non-distended Extremity normal to inspection Skin no rashes or lesions noted Lesions: no lesions Rashes: no rashes Trauma: no lacerations or abrasions Neuro CN's II-XII intact bilaterally, no focal motor deficits, no sensory deficits noted and deep tendon reflexes 2+ bilaterally Psych mental status grossly normal and affect normal Weight / BMI Weight Weight: 233 lb 7.512 oz Body Mass Index (BMI) 42.6 ABG / Lab / Microbiology Data Result Diagrams: 08/17/21 06:00 08/17/21 06:00 Laboratory: Laboratory Results - last 24 hr 08/16/21 12:57: POC Glucose > 500 H* 08/16/21 13:40: Glucose 654 H* 08/16/21 16:33: POC Glucose 469 H* 08/16/21 21:27: POC Glucose 262 H 08/17/21 06:00: WBC 14.9 H, RBC 5.39, Hgb 15.6 H, Hct 51.9 H, MCV 96.3, MCH 28.9, MCHC 30.1 L, RDW Std Deviation 46.9 H, RDW Coeff of Marcy 13.2, Plt Count 308, MPV 11.3, Immature Gran % (Auto) 0.500, Neut % (Auto) 89.0 H, Lymph % (Auto) 5.7 L, [place] % (Auto) 4.7, Eos % (Auto) 0.0, Baso % (Auto) 0.1, Absolute Neuts (auto) 13.3 H, Absolute Lymphs (auto) 0.85, Nucleated RBC % 0 08/17/21 06:00: Sodium 135 L, Potassium 4.6, Chloride 89 L, Carbon Dioxide > 45.0 H*, Anion Gap TNP, BUN 16, Creatinine 0.56, Estim Creat Clear Calc 96.11, Est GFR (MDRD) Af Amer 149, Est GFR (MDRD) Non-Af 123, BUN/Creatinine Ratio 28.7 H, Glucose 288 H, Calcium 9.5, Total Bilirubin 0.30, AST 14 L, ALT 27, Alkaline Phosphatase 119 H, Total Protein 6.5, Albumin 2.7 L, Globulin 3.8, Albumin/Globulin Ratio 0.7 L, Triglycerides 72, Cholesterol 159, LDL Cholesterol 94, VLDL Cholesterol 14, HDL Cholesterol 51 08/17/21 06:14: POC Glucose 281 H 08/17/21 11:47: POC Glucose 465 H* Microbiology: Microbiology 08/16/21 22:15 Mucosa - Nasopharyngeal Respiratory Panel (PCR) - Final 08/16/21 22:25 Urine, Random Legionella Antigen - Final 08/16/21 22:25 Urine, Random Streptococcus pneumoniae Antigen (M - Final 08/16/21 04:13 Nasal Secretion SARS-CoV-2 Antigen (Rapid) - Final D/C Instructions Discharge Diet: Carb Control Diet Call your doctor if you observe: Shortness of breath, Dizziness and Chest pain Meaningful Use Info Meaningful Use Diagnoses (Choose all that apply): None applicable Discharge Plan Admission Admit Date/Time: 08/16/21 04:55 Primary Reason for Your Visit: COPD exacerbation Attending Provider: Melquiades Cheng Primary Care Provider: Rita Melton Instructions Additional Instructions / Restrictions: Patient Problems: Altered Health Status related to Hospitalization Patient Goals: *Optimal Level of Health *Keep Appointments *Medication Compliance *Remain Safe Discharge Orders/Prescriptions Prescriptions: New Lantus Solostar U-100 Insulin 100 unit/mL (3 mL) Insulin Pen 40 unit subcut BID Qty: 15 RF: 0 azithromycin 250 mg Tablet 500 mg PO Q24 Qty: 3 RF: 0 clopidogrel 75 mg Tablet 75 mg PO DAILY Qty: 30 RF: 0 amlodipine 10 mg Tablet 10 mg PO DAILY Qty: 30 RF: 0 insulin lispro [Humalog KwikPen Insulin] 100 unit/mL Insulin Pen See Protocol unit subcut ACHS Qty: 15 RF: 0 prednisone 10 mg tablet See Taper mg PO DAILY Qty: 30 RF: 0 Continued Oxygen, Home [Home Oxygen] 4 - 6 lpm NASAL PRN PRN (Reason: breathing) Qty: 0 RF: 0 gabapentin 600 MG tablet 1,200 mg PO TID RF: 0 atorvastatin 10 MG tablet 10 mg PO DAILY RF: 0 lisinopril 40 MG tablet 40 mg PO DAILY Qty: 0 RF: 0 ipratropium-albuterol 0.5 mg-3 mg(2.5 mg base)/3 mL solution for nebulization 3 ml inhalation Q4H PRN PRN (Reason: COPD) RF: 0 omeprazole 20 mg capsule,delayed release(DR/EC) 20 mg PO DAILY RF: 0 albuterol sulfate 90 mcg/actuation HFA aerosol inhaler 2 puff INHALATION Q4H PRN PRN (Reason: COPD) RF: 0 cholecalciferol (vitamin D3) [Vitamin D3] 25 mcg (1,000 unit) tablet 1,000 unit PO DAILY RF: 0 budesonide-formoterol [Symbicort] 160-4.5 mcg/actuation HFA aerosol inhaler 2 puff INHALATION BID RF: 0 furosemide 40 mg tablet 40 mg PO DAILY Qty: 30 RF: 1 potassium chloride [Klor-Con M20] 20 mEq tablet,ER particles/crystals 20 meq PO DAILY Qty: 30 RF: 1 Discontinued Lantus Solostar U-100 Insulin 100 unit/mL (3 mL) insulin pen 46 unit SUBCUT QHS RF: 0 Referrals / Follow Up: Danni Bahena DIRECTOR MARK[employer] RESEARCH, [employer]-C [Nurse Practitioner] - Within 2 Weeks Sheri Howell NP, [employer]OR [employer]-C [NON-STAFF] - 08/24/21 9:40 am Disposition Disposition (needs filled in before D/C Order can be placed): Home, Self Care Documented by User: Dr. Melquiades Cheng MD 08/17/21 13:19 Providers Date of Admission: 08/16/21 Reason For Visit: COPD EXACERBATION, ELEVATED TROPONIN Medications at Discharge Home Medications Oxygen, Home [Home Oxygen] 4 - 6 lpm NASAL PRN PRN #0 04/06/19 atorvastatin 10 mg PO DAILY 10/14/20 gabapentin 1,200 mg PO TID 10/14/20 lisinopril 40 mg PO DAILY #0 10/17/20 albuterol sulfate 2 puff INHALATION Q4H PRN PRN 05/29/21 budesonide-formoterol [Symbicort] 2 puff INHALATION BID 05/29/21 cholecalciferol (vitamin D3) [Vitamin D3] 1,000 unit PO DAILY 05/29/21 ipratropium-albuterol 3 ml INHALATION Q4H PRN PRN 05/29/21 omeprazole 20 mg PO DAILY 07/06/21 furosemide 40 mg PO DAILY #30 tab 06/01/21 potassium chloride [Klor-Con M20] 20 meq PO DAILY #30 tab 06/01/21 amlodipine 10 mg PO DAILY #30 tab 08/17/21 azithromycin 500 mg PO Q24 #3 tab 08/17/21 clopidogrel 75 mg PO DAILY #30 tab 08/17/21 insulin glargine [Lantus Solostar U-100 Insulin] 40 unit SUBCUT BID #15 ml 08/17/21 insulin lispro [Humalog KwikPen Insulin] See Protocol SUBCUT ACHS #15 ml 08/17/21 prednisone See Taper PO DAILY #30 tab 08/17/21 Hospital Course Operations None Summary of Care Provided Minutes Spent on Discharge: 35 Hospital Course: This patient was seen in conjunction with OBDULIA Gomez . I have independently interviewed and examined the patient and reviewed pertinent historical, laboratory, and other data. Please refer to DILMA Gomez note for details of this patient's presentation, findings, and r ecommendations. I have reviewed DILMA Gomez note and concur with documented findings. In brief, patient is a 50-year-old lady with past medical history segment for COPD admitted with progressive shortness of breath. An assessment of acute on chronic hypoxic restaurant failure as a result of COPD exacerbation made admitted to a monitored bed for subsequent management Hospital course: As documented above ABG / Lab / Microbiology Data Result Diagrams: 08/17/21 06:00 08/17/21 06:00 Discharge Plan Admission Admit Date/Time: 08/16/21 04:55 Primary Reason for Your Visit: COPD exacerbation Attending Provider: Melquiades Cheng Primary Care Provider: Rita Melton Instructions Additional Instructions / Restrictions: Patient Problems: Altered Health Status related to Hospitalization Patient Goals: *Optimal Level of Health *Keep Appointments *Medication Compliance *Remain Safe Discharge Orders/Prescriptions Prescriptions: New Lantus Solostar U-100 Insulin 100 unit/mL (3 mL) Insulin Pen 40 unit subcut BID Qty: 15 RF: 0 azithromycin 250 mg Tablet 500 mg PO Q24 Qty: 3 RF: 0 clopidogrel 75 mg Tablet 75 mg PO DAILY Qty: 30 RF: 0 amlodipine 10 mg Tablet 10 mg PO DAILY Qty: 30 RF: 0 insulin lispro [Humalog KwikPen Insulin] 100 unit/mL Insulin Pen See Protocol unit subcut ACHS Qty: 15 RF: 0 prednisone 10 mg tablet See Taper mg PO DAILY Qty: 30 RF: 0 Continued Oxygen, Home [Home Oxygen] 4 - 6 lpm NASAL PRN PRN (Reason: breathing) Qty: 0 RF: 0 gabapentin 600 MG tablet 1,200 mg PO TID RF: 0 atorvastatin 10 MG tablet 10 mg PO DAILY RF: 0 lisinopril 40 MG tablet 40 mg PO DAILY Qty: 0 RF: 0 ipratropium-albuterol 0.5 mg-3 mg(2.5 mg base)/3 mL solution for nebulization 3 ml inhalation Q4H PRN PRN (Reason: COPD) RF: 0 omeprazole 20 mg capsule,delayed release(DR/EC) 20 mg PO DAILY RF: 0 albuterol sulfate 90 mcg/actuation HFA aerosol inhaler 2 puff INHALATION Q4H PRN PRN (Reason: COPD) RF: 0 cholecalciferol (vitamin D3) [Vitamin D3] 25 mcg (1,000 unit) tablet 1,000 unit PO DAILY RF: 0 budesonide-formoterol [Symbicort] 160-4.5 mcg/actuation HFA aerosol inhaler 2 puff INHALATION BID RF: 0 furosemide 40 mg tablet 40 mg PO DAILY Qty: 30 RF: 1 potassium chloride [Klor-Con M20] 20 mEq tablet,ER particles/crystals 20 meq PO DAILY Qty: 30 RF: 1 Discontinued Lantus Solostar U-100 Insulin 100 unit/mL (3 mL) insulin pen 46 unit SUBCUT QHS RF: 0 Referrals / Follow Up: Danni Bahena NP, DIRECTOR [employer]EARCH-C [Nurse Practitioner] - Within 2 Weeks Sheri Howell NP, DIRECTOR [employer]EARCH-C [NON-STAFF] - 08/24/21 9:40 am Disposition Disposition (needs filled in before D/C Order can be placed): Home, Self Care Charges/Coding Visit Charges Inpatient E&M: 19831 Disch Hosp Hospital Course Operations None
[2021-08-17] MEDS: 0.9% Saline Lock 10 ML Syringe IV (13:06)
[2021-08-17 13:33] LABS: Hemoglobin A1c 10.5 % (3.8-5.6)
--- NOTE | 2021-08-17 14:45 | CASEMGMT ---
Addendum entered by Cindi Clemente 08/17/21 16:15: Pt qualifies for 7L at rest and 8L w/ exertion. Glenroy ROACH CM Original Note: New order for O2 faxed to [facility] at this time. Pt states no further concerns/needs for discharge. Glenroy ROACH CM
--- NOTE | 2021-08-17 14:58 | NURSING ---
Read and reviewed SN documentation. Discussed Plan of Care with SN.
--- NOTE | 2021-08-20 14:57 | CASEMGMT ---
[facility] Discharge F/U Phone Call LACE: 10 Strata: 3 Discharge date: 08/17/21 Call date: 08/20/21 Call time: 1459 Attempted to reach pt and per message, pt is not accepting calls at this time. Unable to leave message. [facility] CM Admission dx: COPD exac, elev troponin
== END 2021-08-17 15:07 | disposition home or self-care (01) | DRG 140 ==
LOC: ED 04:55 → PCU 05:15
PROVIDERS: Nurse Practitioner Family; Admitting Provider Family Medicine; Emergency Provider Emergency Medicine; PCP Internal Medicine; Visit Provider Internal Medicine
DX: J44.1 Chronic obstructive pulmonary disease with (acute) exacerbation (principal); E11.42 Type 2 diabetes mellitus with diabetic polyneuropathy; Z99.81 Dependence on supplemental oxygen; E66.01 Morbid (severe) obesity due to excess calories; Z68.41 Body mass index [BMI] 40.0-44.9, adult; Z79.4 Long term (current) use of insulin; E11.65 Type 2 diabetes mellitus with hyperglycemia; I10 Essential (primary) hypertension; K21.9 Gastro-esophageal reflux disease without esophagitis; E78.5 Hyperlipidemia, unspecified; G47.33 Obstructive sleep apnea (adult) (pediatric); R77.8 Other specified abnormalities of plasma proteins; Z23 Encounter for immunization; Z79.899 Other long term (current) drug therapy; Z87.891 Personal history of nicotine dependence; Z79.51 Long term (current) use of inhaled steroids
CPT/HCPCS: 36415; 36600; 71045; 80048; 80053; 80061; 82803; 82947; 82962; 83036; 83735; 84145; 84484; 85025; 87040; 87426; 87449; 87633; 93005; 94640; 97802; 99285; 99406; J7050; 90686; A4216

== ENCOUNTER 2021-09-03 14:00 | Inpatient (IN) | payer MEDICAID, SELFPAY ==
[2021-09-03] VITALS (32 sets, daily range): BP systolic 132–193; BP diastolic 73–106; PULSE 86–97; RESP 12–34; TEMP 35.6–36.8; O2SAT 88–100; BMI 36.6; BMI 43.7
--- NOTE | 2021-09-03 14:14 | EKG12_ITS ---
Test Reason : CP Blood Pressure : / mmHG Vent. Rate : 097 BPM Atrial Rate : 097 BPM P-R Int : 142 ms QRS Dur : 074 ms QT Int : 344 ms P-R-T Axes : 059 105 029 degrees QTc Int : 436 ms Normal sinus rhythm Low voltage QRS Septal infarct , age undetermined Abnormal ECG Confirmed by JASON MARTINEZ, BATSHEVA ([id number]), dictionary editor DOV LONGO ([id number]) on 09/05/2021 9:19:27 AM Referred By: REYNALDO/DACIA Confirmed By:BATSHEVA GOMEZ MD
--- NOTE | 2021-09-03 14:14 | RAD_ITS ---
STUDY: X-RAY CHEST REASON FOR EXAM: Female, 50 years old. Dyspnea TECHNIQUE: Single AP portable view of the chest. COMPARISON: Comparison is made with prior study dated 08/16/2021. FINDINGS: EKG electrodes are seen. Thoracic congestion and mild CHF. There is no demonstrated pleural abnormality. There is moderate cardiac enlargement. Normal mediastinum and [place]. Normal visualized pulmonary arteries. Normal visualized aortic arch and descending thoracic aorta. Normal visualized thoracic spine. Normal visualized ribs, clavicles, and shoulders. There is no demonstrated abnormality of the visualized soft tissue structures of the upper abdomen. RAD/Chest 1 View (Portable) IMPRESSION: Cardiomegaly and CHF. Electronically Signed: Luis Mistry MD at 15:13 EDT , Service support ,
--- NOTE | 2021-09-03 14:27 | EDS_ITS ---
HPI History of Present Illness Chief Complaint: Chest Pain Narrative Narrative: Patient is a 50-year-old female with past medical history of COPD. She states she quit smoking approximately 6 months ago but does need to wear 4 L of nasal cannula oxygen 16/06. She called EMS today secondary to mild chest discomfort with increased shortness of breath. EMS states when they arrived patient was satting 75% on her normal 4 L and that she had a depressed mental status. Secondary to this EMS started the patient on higher flow of oxygen and gave her a breathing treatment. Patient states that she has had a cough but denies any fevers or chills. 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 Hypertensive urgency Obesity (BMI 30-39.9) On home oxygen therapy Otitis media Home Medications Oxygen, Home [Home Oxygen] 4 - 6 lpm NASAL PRN PRN #0 04/06/19 [Rx Last Taken 07/11/20] atorvastatin 10 mg PO DAILY 10/14/20 [History Last Taken 10/13/20] gabapentin 1,200 mg PO TID 10/14/20 [History Last Taken 10/14/20 1200] lisinopril 40 mg PO DAILY #0 10/17/20 [Rx Last Taken 10/13/20 08:00] albuterol sulfate 2 puff INHALATION Q4H PRN PRN 05/29/21 [History Last Taken Unknown] budesonide-formoterol [Symbicort] 2 puff INHALATION BID 05/29/21 [History Last Taken Unknown] cholecalciferol (vitamin D3) [Vitamin D3] 1,000 unit PO DAILY 05/29/21 [History Last Taken Unknown] ipratropium-albuterol 3 ml INHALATION Q4H PRN PRN 05/29/21 [History Last Taken Unknown] omeprazole 20 mg PO DAILY 05/29/21 [History Last Taken Unknown] furosemide 40 mg PO DAILY #30 tab 06/01/21 [Rx Last Taken Unknown] potassium chloride [Klor-Con M20] 20 meq PO DAILY #30 tab 06/01/21 [Rx Last Taken Unknown] amlodipine 10 mg PO DAILY #30 tab 08/17/21 [Rx Last Taken Unknown] azithromycin 500 mg PO Q24 #3 tab 08/17/21 [Rx Last Taken Unknown] clopidogrel 75 mg PO DAILY #30 tab 08/17/21 [Rx Last Taken Unknown] insulin glargine [Lantus Solostar U-100 Insulin] 40 unit SUBCUT BID #15 ml 08/17/21 [Rx Last Taken Unknown] insulin lispro [Humalog KwikPen Insulin] See Protocol SUBCUT ACHS #15 ml 08/17/21 [Rx Last Taken Unknown] prednisone See Taper PO DAILY #30 tab 08/17/21 [Rx Last Taken Unknown] Allergy/AdvReac Type Severity Reaction Status Date / Time aspirin Allergy Anaphylaxis Verified 09/03/21 14:01 ceftriaxone [From Rocephin] Allergy Rash Verified 09/03/21 14:01 cyclobenzaprine HCl Allergy Rash Verified 09/03/21 14:01 [From Flexeril] levofloxacin [From Levaquin] Allergy Rash Verified 09/03/21 14:01 naproxen [From Naprosyn] Allergy Anaphylaxis Verified 09/03/21 14:01 bupropion HCl AdvReac nightmares Verified 09/03/21 14:01 [From Wellbutrin] doxycycline AdvReac Diarrhea Verified 09/03/21 14:01 Family History Mother Breast cancer Cancer Skin Father COPD (chronic obstructive pulmonary disease) Hypertension Heart disease Cancer Skin Surgical History History of section History of tubal ligation Social History household members: significant other Smoking Status: Former smoker Tobacco: How many years used: 24 how long ago did patient quit smokin, 1ppd second hand exposure: Yes alcohol intake: never substance use type: does not use ROS ROS ED Constitutional Constitutional ED: Denies chills or fever(s) ENT ENT ED: Reports sore throat Cardiovascular Cardiovascular: Reports chest pain Respiratory/Chest Respiratory/Chest: Reports cough, dyspnea and dyspnea on exertion Gastrointestinal Gastrointestinal: Denies abdominal pain, diarrhea, nausea or vomiting Genitourinary Genitourinary ED: Denies dysuria Musculoskeletal Musculoskeletal: Denies myalgias Integumentary Denies rash Neurologic Neurologic: Denies headache(s) Hematologic/Lymphatic Hematologic/Lymphatic: Denies easy bleeding or easy bruising EXAM Physical Exam Const Vital Signs: 09/03/21 14:01 09/03/21 14:08 09/03/21 14:09 Temperature 96.6 F L Temperature Source Temporal Pulse Rate 96 97 Respiratory Rate 24 H 34 H Respiratory Effort Accessory Muscle Use Respiratory Depth Shallow Respiratory Pattern Tachypnea Blood Pressure 176/90 H Blood Pressure Mean 118 Pulse Ox 88 90 Oxygen Delivery Method Nasal Cannula Nasal Cannula Oxygen Flow Rate (L/min) 4 4 Fraction of Inspired Oxygen (FIO2) 09/03/21 14:30 09/03/21 15:20 09/03/21 15:25 Temperature 96.1 F L Temperature Source Temporal Pulse Rate 94 95 93 Respiratory Rate 26 H 28 H 21 H Respiratory Effort Respiratory Depth Respiratory Pattern Blood Pressure 184/98 H Blood Pressure Mean 126 Pulse Ox 88 92 Oxygen Delivery Method Nasal Cannula Oxygen Flow Rate (L/min) 5 Fraction of Inspired Oxygen (FIO2) 60 09/03/21 15:45 09/03/21 15:54 09/03/21 17:04 Temperature Temperature Source Pulse Rate 94 96 Respiratory Rate 32 H Respiratory Effort Respiratory Depth Shallow Respiratory Pattern Tachypnea Blood Pressure 187/101 H 186/95 H Blood Pressure Mean 125 Pulse Ox 93 98 Oxygen Delivery Method Bi-pap Ambu-Bag Oxygen Flow Rate (L/min) Fraction of Inspired Oxygen (FIO2) 09/03/21 17:14 09/03/21 17:15 09/03/21 17:28 Temperature 96.1 F L 96.6 F L Temperature Source Temporal Temporal Pulse Rate 89 92 Respiratory Rate 12 14 14 Respiratory Effort Respiratory Depth Respiratory Pattern Blood Pressure 160/87 H Blood Pressure Mean 111 Pulse Ox 100 91 Oxygen Delivery Method Ambu-Bag Mechanical Ventilator Oxygen Flow Rate (L/min) Fraction of Inspired Oxygen (FIO2) 40 09/03/21 17:37 Temperature 96.1 F L Temperature Source Temporal Pulse Rate 87 Respiratory Rate 14 Respiratory Effort Respiratory Depth Respiratory Pattern Blood Pressure Blood Pressure Mean Pulse Ox 93 Oxygen Delivery Method Mechanical Ventilator Oxygen Flow Rate (L/min) Fraction of Inspired Oxygen (FIO2) Positive well nourished and well developed General Appearance ED: well developed HEENT HEENT Narrative: No tongue or lip swelling no oral lesions no airway edema or compromise Eyes EOMs intact bilaterally Eyes Narrative: Pupils are dilated and slightly sluggish to respond Neck supple and no JVD Chest Wall Chest Narrative: No bony deformity or crepitance Resp Resp Narrative: Breath sounds are diminished throughout with diffuse expiratory and inspiratory wheezing. Patient does have tachypnea and accessory muscle use and slight sternal retractions noted consistent with moderate respiratory distress. Cardio regular rate and regular rhythm Cardio Narrative: Radial pulses are plus 2 out of 4 bilaterally are equal and symmetric GI non-tender and non-distended GI Narrative: No voluntary guarding or rigidity no pulsatile mass Auscultation: normoactive bowel sounds Palpation: soft Extremity Extremity Narrative: There is +2 pitting edema to the bilateral lower extremities that is equal and symmetric negative Homans' sign bilaterally. Neuro CN's II-XII intact bilaterally Neuro Narrative: Patient is obtunded but will awaken to voice. She is able to move all extremities and there is no obvious focal neurologic deficit Psych Mood & Affect: depressed Skin no rashes or lesions noted Rashes: no rashes MDM MDM MDM Narrative Medical decision making narrative: EMS reported patient was in the low 70s on her normal oxygen when they arrived. With an increase in oxygen her pulse ox did improve to approximate 88% and she did awaken to loud voice. A blood gas was obtained which showed hypercapnia with CO2 115. Secondary to this high values she was started on BiPAP. Patient seemed to be tolerating the BiPAP well but 1 hour reevaluation showed that her PCO2 is now increased to 123. Secondary to this the patient was intubated. The patient's initial troponin was elevated at 314 by EKG did not show any acute STEMI. Her 2-hour delta trended down to 290 after we are treating the hypoxia and congestive heart failure. Therefore I do not feel this is cardiac in nature as the values downtrending with treating the hypoxia. At this time the patient will be placed in the ICU secondary to her respiratory failure. Her Covid test is negative was concerned this could be another viral etiology she will have a respiratory viral panel obtained Lab Data Attestation: I reviewed the patient's lab results. Labs: Laboratory Results - last 24 hr 09/03/21 09/03/21 09/03/21 14:30 14:30 14:30 WBC 13.2 H RBC 5.32 Hgb 15.7 H Hct 53.4 H MCV 100.4 H MCH 29.5 MCHC 29.4 L RDW Std Deviation 50.4 H RDW Coeff of Marcy 13.6 Plt Count 221 MPV 11.0 Immature Gran % (Auto) 0.800 Neut % (Auto) 81.9 H Lymph % (Auto) 9.0 L [place] % (Auto) 7.3 Eos % (Auto) 0.6 Baso % (Auto) 0.4 Absolute Neuts (auto) 10.8 H Absolute Lymphs (auto) 1.18 Nucleated RBC % 0 PT 12.0 INR 1.0 APTT 26.2 Sodium 138 Potassium 4.9 Chloride 93 L Carbon Dioxide 43.0 H Anion Gap 2 L BUN 21 H Creatinine 0.62 Estim Creat Clear Calc 86.81 Est GFR (MDRD) Af Amer 131 Est GFR (MDRD) Non-Af 108 BUN/Creatinine Ratio 33.7 H Glucose 368 H Calcium 9.6 Magnesium 2.2 Troponin I High Sens 314 H* B-Natriuretic Peptide 09/03/21 09/03/21 14:36 16:25 WBC RBC Hgb Hct MCV MCH MCHC RDW Std Deviation RDW Coeff of Marcy Plt Count MPV Immature Gran % (Auto) Neut % (Auto) Lymph % (Auto) [place] % (Auto) Eos % (Auto) Baso % (Auto) Absolute Neuts (auto) Absolute Lymphs (auto) Nucleated RBC % PT INR APTT Sodium Potassium Chloride Carbon Dioxide Anion Gap BUN Creatinine Estim Creat Clear Calc Est GFR (MDRD) Af Amer Est GFR (MDRD) Non-Af BUN/Creatinine Ratio Glucose Calcium Magnesium Troponin I High Sens 290 H* B-Natriuretic Peptide 194.9 H ABG Data ABG results: ABG 09/03/21 14:42 Specimen Type ART Sample Site R Radial pH 7.22 L Bicarbonate Actual 47.3 H Total CO2 > 50 Base Excess 20 H O2 Saturation 85 L ABG pCO2 115.5 H* ABG pO2 65 L Abudilio Test Positive O2 Delivery Device Cannula Liter Flow 5.0 Crit Call To/Read Back Yes Blood Gas Notified Whom Radiography Diagnostic Testing: Clinical Impression(s) from Imaging Studies Chest X-Ray 09/03/21 14:14 IMPRESSION: Cardiomegaly and CHF. Electronically Signed: Luis Mistry MD at 15:13 EDT , Service support , Procedures Intubations Intubation Method: orotracheal Intubation Verification: Positive color change and Bilateral breath sounds confirmed Intubation Complications: no complications Critical Care Time Critical Care Time: Yes Critical care time (excluding procedures): - (Please note critical care time of 37 minutes) Discharge Plan Triage Chief Complaint: Chest Pain Other Complaint: Shortness of Breath ED Provider: Joes Castro Dx/Rx/DC Orders Clinical Impression: Acute on chronic respiratory failure, Elevated troponin, Hypercarbia, Congestive heart failure Prescriptions: No Action Oxygen, Home [Home Oxygen] 4 - 6 lpm NASAL PRN PRN (Reason: breathing) Qty: 0 RF: 0 gabapentin 600 MG tablet 1,200 mg PO TID RF: 0 atorvastatin 10 MG tablet 10 mg PO DAILY RF: 0 lisinopril 40 MG tablet 40 mg PO DAILY Qty: 0 RF: 0 ipratropium-albuterol 0.5 mg-3 mg(2.5 mg base)/3 mL solution for nebulization 3 ml inhalation Q4H PRN PRN (Reason: COPD) RF: 0 omeprazole 20 mg capsule,delayed release(DR/EC) 20 mg PO DAILY RF: 0 albuterol sulfate 90 mcg/actuation HFA aerosol inhaler 2 puff INHALATION Q4H PRN PRN (Reason: COPD) RF: 0 cholecalciferol (vitamin D3) [Vitamin D3] 25 mcg (1,000 unit) tablet 1,000 unit PO DAILY RF: 0 budesonide-formoterol [Symbicort] 160-4.5 mcg/actuation HFA aerosol inhaler 2 puff INHALATION BID RF: 0 furosemide 40 mg tablet 40 mg PO DAILY Qty: 30 RF: 1 potassium chloride [Klor-Con M20] 20 mEq tablet,ER particles/crystals 20 meq PO DAILY Qty: 30 RF: 1 Lantus Solostar U-100 Insulin 100 unit/mL (3 mL) Insulin Pen 40 unit subcut BID Qty: 15 RF: 0 azithromycin 250 mg Tablet 500 mg PO Q24 Qty: 3 RF: 0 clopidogrel 75 mg Tablet 75 mg PO DAILY Qty: 30 RF: 0 amlodipine 10 mg Tablet 10 mg PO DAILY Qty: 30 RF: 0 insulin lispro [Humalog KwikPen Insulin] 100 unit/mL Insulin Pen See Protocol unit subcut ACHS Qty: 15 RF: 0 prednisone 10 mg tablet See Taper mg PO DAILY Qty: 30 RF: 0 Primary Care Provider: Rita Melton Referrals: Rita Melton MD [Primary Care Provider] - Disposition Disposition: Acute Care Hospital [facility]
[2021-09-03] MEDS: Ipratropium/Albuterol Sulfate 3 ML AMPUL.NEB INHALATION ×2 (14:30→22:09)
[2021-09-03] MEDS: MethylPREDNISolone 125 MG/2 ML Vial IV (14:30)
[2021-09-03] MEDS: Albuterol 2.5 MG/3 ML VIAL.NEB. 5 MG INHALATION (14:30)
[2021-09-03 14:41] LABS: Absolute Lymphocyte Count 1.18 X10^3/uL (0.83-4.51); Absolute Neutrophil Count 10.8 X10^3/uL (2.0-7.7); Basophil# 0.05 X10^3/uL; Basophil% 0.4 % (0-1); Eosinophil# 0.08 X10^3/uL; Eosinophils% 0.6 % (0-5); Hematocrit 53.4 % (37-47); Hemoglobin 15.7 g/dL (12.0-15.0); Lymphocyte # 1.18 X10^3/ul (0.83-4.51); Mean Corp Hgb Conc 29.4 g/dL (32-36); Mean Corpuscular Hgb 29.5 pg (27.0-32.0); Mean Corpuscular Volume 100.4 fL (81-99); Monocyte# 0.96 X10^3/uL; Monocyte% 7.3 % (0-10); NRBC Flagged by Analyzer 0 % (0-5); Neutrophil % 81.9 % (47-70); Platelet Count 221 K/mm3 (150-450); RBC Distribution Width CV 13.6 % (11.6-14.6); RBC Distribution Width SD 50.4 fl (35.1-43.9); Red Blood Count 5.32 M/mm3 (4.2-5.4); White Blood Count 13.2 K/mm3 (4.4-11.0)
[2021-09-03 15:09] LABS: Anion Gap 2 (5-15); BUN 21 mg/dL (7-18); BUN/Creat Ratio 33.7 RATIO (10-20); Calcium,Total 9.6 mg/dL (8.5-10.1); Chloride 93 mmol/L (98-107); Creatinine, Serum 0.62 mg/dL (0.55-1.02); EST Glomerular Filtration Rate 108 mL/min (>60); Est Glom Filt Rate - Afr Amer 131 mL/min (>60); Estimated Creatinine Clearance 86.81 ml/min; Glucose 368 mg/dL (74-106); Magnesium 2.2 mg/dL (1.6-2.6); Potassium 4.9 mmol/L (3.5-5.1); Sodium Level 138 mmol/L (136-145); Troponin-I HS 314 pg/mL (3.0-54.0)
[2021-09-03 15:21] LABS: BNP,B-Type NATRIURETIC PEPTIDE 194.9 pg/mL (0-100)
[2021-09-03] MEDS: LORazepam 2 MG/ML Syringe 1 MG IV (15:23)
[2021-09-03] MEDS: Furosemide 40 MG/4 ML Vial IV (15:45)
[2021-09-03] MEDS: Nitroglycerin SL (ED/IMG/CATH) 0.4 MG TABLET SL (15:45)
[2021-09-03 16:01] LABS: Allen Test Positive; Base Excess 20 mmol/L (-2 to +2); Bicarbonate 47.3 mmol/L (22-26); Blood Gas Specimen Type ART; O2 Delivery Device Cannula; PO2 65 mmHG (75-100); SITE R Radial; SO2 85 % (95-99); Total Carbon Dioxide > 50 mmol/L; pCO2 115.5 mmHg (35-45); pH 7.22 (7.35-7.45)
[2021-09-03 16:19] LABS: Partial Thromboplast Time 26.2 Seconds (24.1-36.2)
[2021-09-03 16:47] LABS: Troponin-I HS 290 pg/mL (3.0-54.0)
--- NOTE | 2021-09-03 16:49 | ED.RN ---
primary nurse, Reshma Galvez RN, informed that lab called with troponin 290.
[2021-09-03] MEDS: Etomidate 20 MG/10 ML Vial IV (17:04)
[2021-09-03] MEDS: Succinylcholine Chloride 200 MG/10 ML Vial 100 MG IV (17:04)
[2021-09-03] MEDS: Propofol 10MG/Ml 1,000 MG/100 ML Bottle 5.4 MG CONT INF (17:28)
[2021-09-03] MEDS: fentaNYL 100 MCG/2 ML Ampul 50 MCG IV (17:36)
[2021-09-03 17:56] LABS: Allen Test Positive; Base Excess 22 mmol/L (-2 to +2); Bicarbonate 49.7 mmol/L (22-26); Blood Gas Specimen Type ART; FI02 60; O2 Delivery Device BiPAP; PO2 75 mmHG (75-100); RR 14; SITE R Radial; SO2 89 % (95-99); Total Carbon Dioxide > 50 mmol/L; Vt 450; pH 7.22 (7.35-7.45)
--- NOTE | 2021-09-03 18:10 | RAD_ITS ---
STUDY: X-RAY CHEST REASON FOR EXAM: Female, 50 years old. CHEST PAIN TUBE PLACEMENT TECHNIQUE: XR Chest 1 View COMPARISON: Study done earlier today. FINDINGS: There is no demonstrated pleural abnormality. Bilateral infiltrates. There is an NGT and ET tube in place. There is mild cardiac enlargement. Normal mediastinum and miltno. Normal visualized pulmonary arteries. There is atherosclerotic calcification of the aortic arch with tortuosity. There are diffuse degenerative changes of the visualized thoracic spine. There is degenerative osteoarthritis of the bilateral shoulders. There is no demonstrated abnormality of the visualized soft tissue structures of the upper abdomen. RAD/Chest 1 View (Portable) IMPRESSION: Pulmonary findings appear worse. Electronically Signed: Joni Castañeda MD at 18:53 EDT , Service support ,
--- NOTE | 2021-09-03 18:11 | HP.PCM_ITS ---
Documented by User: DILMA Patel 09/03/21 18:32 HPI - General General Date of Admission: 09/03/21 Date of Service: 09/03/21 Chief Complaint: Shortness of breath HPI Narrative ESTIVEN LONG, is a 50 F who presents to the ER with complaints of shortness of breath. Per ER physician patient called EMS due to increased shortness of breath and chest pain. Upon EMS arrival to patient's home patient was noted to have a pulse ox in the 70s on her 4 L nasal cannula home oxygen. Upon arrival to ER patient and ABG was completed which showed hypercapnia. Patient was intubated after failed BiPAP treatment. 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 myelopathy Hypertensive urgency Obesity (BMI 30-39.9) On home oxygen therapy Otitis media Home Medications Oxygen, Home [Home Oxygen] 4 - 6 lpm NASAL PRN PRN #0 04/06/19 [Rx Last Taken 07/11/20] atorvastatin 10 mg PO DAILY 10/14/20 [History Last Taken 10/13/20] gabapentin 1,200 mg PO TID 10/14/20 [History Last Taken 10/14/20 1200] lisinopril 40 mg PO DAILY #0 10/17/20 [Rx Last Taken 10/13/20 08:00] albuterol sulfate 2 puff INHALATION Q4H PRN PRN 05/29/21 [History Last Taken Unknown] budesonide-formoterol [Symbicort] 2 puff INHALATION BID 05/29/21 [History Last Taken Unknown] cholecalciferol (vitamin D3) [Vitamin D3] 1,000 unit PO DAILY 05/29/21 [History Last Taken Unknown] ipratropium-albuterol 3 ml INHALATION Q4H PRN PRN 05/29/21 [History Last Taken Unknown] omeprazole 20 mg PO DAILY 05/29/21 [History Last Taken Unknown] furosemide 40 mg PO DAILY #30 tab 06/01/21 [Rx Last Taken Unknown] potassium chloride [Klor-Con M20] 20 meq PO DAILY #30 tab 06/01/21 [Rx Last Taken Unknown] amlodipine 10 mg PO DAILY #30 tab 08/17/21 [Rx Last Taken Unknown] azithromycin 500 mg PO Q24 #3 tab 08/17/21 [Rx Last Taken Unknown] clopidogrel 75 mg PO DAILY #30 tab 08/17/21 [Rx Last Taken Unknown] insulin glargine [Lantus Solostar U-100 Insulin] 40 unit SUBCUT BID #15 ml 08/17/21 [Rx Last Taken Unknown] insulin lispro [Humalog KwikPen Insulin] See Protocol SUBCUT ACHS #15 ml 08/17/21 [Rx Last Taken Unknown] prednisone See Taper PO DAILY #30 tab 08/17/21 [Rx Last Taken Unknown] Allergy/AdvReac Type Severity Reaction Status Date / Time aspirin Allergy Anaphylaxis Verified 09/03/21 14:01 ceftriaxone [From Rocephin] Allergy Rash Verified 09/03/21 14:01 cyclobenzaprine HCl Allergy Rash Verified 09/03/21 14:01 [From Flexeril] levofloxacin [From Levaquin] Allergy Rash Verified 09/03/21 14:01 naproxen [From Naprosyn] Allergy Anaphylaxis Verified 09/03/21 14:01 bupropion HCl AdvReac nightmares Verified 09/03/21 14:01 [From Wellbutrin] doxycycline AdvReac Diarrhea Verified 09/03/21 14:01 Family History Mother Breast cancer Cancer Skin Father COPD (chronic obstructive pulmonary disease) Hypertension Heart disease Cancer Skin Surgical History History of section History of tubal ligation Social History household members: significant other Smoking Status: Former smoker Tobacco: How many years used: 24 how long ago did patient quit smokin, 1ppd second hand exposure: Yes alcohol intake: never substance use type: does not use ROS Review of Systems ROS Unobtainable: due to endotracheal tube Vital Signs Vital Signs Vital Signs: 09/03/21 14:01 09/03/21 14:08 09/03/21 14:09 Temperature 96.6 F L Temperature Source Temporal Pulse Rate 96 97 Respiratory Rate 24 H 34 H Respiratory Effort Accessory Muscle Use Respiratory Depth Shallow Respiratory Pattern Tachypnea Blood Pressure 176/90 H Blood Pressure Mean 118 Blood Pressure Source Pulse Ox 88 90 Oxygen Delivery Method Nasal Cannula Nasal Cannula Oxygen Flow Rate (L/min) 4 4 Fraction of Inspired Oxygen (FIO2) 09/03/21 14:30 09/03/21 15:20 09/03/21 15:25 Temperature 96.1 F L Temperature Source Temporal Pulse Rate 94 95 93 Respiratory Rate 26 H 28 H 21 H Respiratory Effort Respiratory Depth Respiratory Pattern Blood Pressure 184/98 H Blood Pressure Mean 126 Blood Pressure Source Pulse Ox 88 92 Oxygen Delivery Method Nasal Cannula Oxygen Flow Rate (L/min) 5 Fraction of Inspired Oxygen (FIO2) 60 09/03/21 15:45 09/03/21 15:54 09/03/21 16:39 Temperature Temperature Source Pulse Rate 94 96 95 Respiratory Rate 32 H 20 H Respiratory Effort Respiratory Depth Respiratory Pattern Blood Pressure 187/101 H 186/95 H Blood Pressure Mean 125 Blood Pressure Source Pulse Ox 93 92 Oxygen Delivery Method Bi-pap Oxygen Flow Rate (L/min) Fraction of Inspired Oxygen (FIO2) 60 09/03/21 17:04 09/03/21 17:14 09/03/21 17:15 Temperature 96.1 F L Temperature Source Temporal Pulse Rate 89 Respiratory Rate 12 14 Respiratory Effort Respiratory Depth Shallow Respiratory Pattern Tachypnea Blood Pressure 160/87 H Blood Pressure Mean 111 Blood Pressure Source Pulse Ox 98 100 Oxygen Delivery Method Ambu-Bag Ambu-Bag Oxygen Flow Rate (L/min) Fraction of Inspired Oxygen (FIO2) 40 09/03/21 17:28 09/03/21 17:37 09/03/21 17:55 Temperature 96.6 F L 96.1 F L 97.7 F L Temperature Source Temporal Temporal Temporal Pulse Rate 92 87 86 Respiratory Rate 14 14 14 Respiratory Effort Respiratory Depth Respiratory Pattern Blood Pressure 146/83 H 138/75 H 132/73 H Blood Pressure Mean 104 96 92 Blood Pressure Source Monitor Monitor Monitor Pulse Ox 91 93 94 Oxygen Delivery Method Mechanical Ventilator Mechanical Ventilator Mechanical Ventilator Oxygen Flow Rate (L/min) Fraction of Inspired Oxygen (FIO2) 09/03/21 17:58 09/03/21 17:59 09/03/21 18:08 Temperature 97.7 F L 97.7 F L 97.7 F L Temperature Source Temporal Temporal Temporal Pulse Rate 86 86 88 Respiratory Rate 14 14 14 Respiratory Effort Respiratory Depth Respiratory Pattern Blood Pressure 144/89 H 144/89 H 148/90 H Blood Pressure Mean 107 107 109 Blood Pressure Source Monitor Pulse Ox 94 94 92 Oxygen Delivery Method Mechanical Ventilator Mechanical Ventilator Mechanical Ventilator Oxygen Flow Rate (L/min) Fraction of Inspired Oxygen (FIO2) Weight Weight: 200 lb Body Mass Index (BMI) 36.6 Physical Exam Const General Appearance: intubated, patient mechanically ventilated and other Sedated HEENT normocephalic and head/scalp atraumatic Eyes conjunctivae normal and no scleral icterus Neck supple General: trachea midline Resp Effort and Inspection: symmetric chest movement and mechanically ventilated Auscultation: rhonchi throughout Cardio regular rate, regular rhythm, S1 normal heart sound, S2 normal heart sound and peripheral pulses 2+ throughout GI normal to inspection, nondistended, normoactive bowel sounds, soft to palpation and non-tender Extremity normal capillary refill and no clubbing, cyanosis or edema General Extremity: no tenderness to palpation of joints or extremities Skin General Skin Exam: no breakdown and turgor normal Lesions: no lesions Rashes: no rashes Neuro moves all extremities Sensorium / Orientation: sedated on vent RASS: +1 Psych Appearance: intubated Results Lab / Micro Data Result Diagrams: 09/03/21 14:30 09/03/21 14:30 Labs: Laboratory Results - last 24 hr 09/03/21 14:30: WBC 13.2 H, RBC 5.32, Hgb 15.7 H, Hct 53.4 H, MCV 100.4 H, MCH 29.5, MCHC 29.4 L, RDW Std Deviation 50.4 H, RDW Coeff of Marcy 13.6, Plt Count 221, MPV 11.0, Immature Gran % (Auto) 0.800, Neut % (Auto) 81.9 H, Lymph % (Auto) 9.0 L, [place] % (Auto) 7.3, Eos % (Auto) 0.6, Baso % (Auto) 0.4, Absolute Neuts (auto) 10.8 H, Absolute Lymphs (auto) 1.18, Nucleated RBC % 0 09/03/21 14:30: Sodium 138, Potassium 4.9, Chloride 93 L, Carbon Dioxide 43.0 H, Anion Gap 2 L, BUN 21 H, Creatinine 0.62, Estim Creat Clear Calc 86.81, Est GFR (MDRD) Af Amer 131, Est GFR (MDRD) Non-Af 108, BUN/Creatinine Ratio 33.7 H, Glucose 368 H, Calcium 9.6, Magnesium 2.2, Troponin I High Sens 314 H* 09/03/21 14:30: PT 12.0, INR 1.0, APTT 26.2 09/03/21 14:36: B-Natriuretic Peptide 194.9 H 09/03/21 16:25: Troponin I High Sens 290 H* Micro: Microbiology 09/03/21 14:31 Nasal Secretion SARS-CoV-2 Antigen (Rapid) - Final ABG Data ABG results: ABG 09/03/21 09/03/21 14:42 16:45 Specimen Type ART ART Sample Site R Radial R Radial pH 7.22 L 7.22 L Bicarbonate Actual 47.3 H 49.7 H Total CO2 > 50 > 50 Base Excess 20 H 22 H O2 Saturation 85 L 89 L O2 % 60 ABG pCO2 115.5 H* 123.0 H* ABG pO2 65 L 75 Baudilio Test Positive Positive Respiration Rate 14 O2 Delivery Device Cannula BiPAP Liter Flow 5.0 Tidal Volume 450 Crit Call To/Read Back Yes Yes Blood Gas Notified Whom Dr.Andes Cannon Clinical Comments Radiology Impression Chest X-Ray 09/03/21 14:14 IMPRESSION: Cardiomegaly and CHF. Electronically Signed: Luis Mistry MD at 15:13 EDT , Service support , Assessment & Plan Assessment/Plan (1) Acute on chronic respiratory failure: QUALIFIERS: Respiratory failure complication: hypoxia and hypercapnia Qualified Code(s): J96.21 - Acute and chronic respiratory failure with hypoxia; J96.22 - Acute and chronic respiratory failure with hypercapnia (2) Elevated troponin: PLAN: 1. Acute on chronic respiratory failure secondary to COPD -Admit to ICU, maintain ET tube and mechanical ventilation -Consult brand activation manager -Continuous pulse ox and cardiac monitoring -N.p.o. -Maintain OG to low intermittent wall suction, may use OG to administer medications -PT and OT to eval and treat -CAM ICU and RASS monitoring -Maintain Balderrama catheter -Vital signs per protocol -CBC, CMP ordered for a.m. -Obtain ABG 1 hour after intubation -Chest x-ray and KUB completed following OG and ET placement -Oral care with chlorhexidine per protocol -IV Solu-Medrol -Scheduled duo nebs with as needed albuterol treatments ordered -Continue propofol and fentanyl for sedation, titrate as ordered 2. Elevated troponin -Likely secondary to oxygen demands from COPD exacerbation -Will trend cardiac enzymes 3. Diabetes mellitus type 2 -AC at bedtime blood sugars with sliding scale insulin -Continue home Lantus regimen Will hold all home p.o. medications except Plavix at this time until verified. DVT prophylaxis-subcu Lovenox This patient was seen by Roseann Ellis NP-C under the supervision of Dr. Taveras Documented by User: Dr. Robin Taveras DO 09/03/21 18:41 HPI - General General Date of Admission: 09/03/21 Date of Service: 09/03/21 Chief Complaint: dyspnea HPI Narrative This is a 50-year-old female with COPD chronic respiratory failure presents with increasing shortness of breath and chest pain today. History is obtained through the emergency room physician as patient is currently intubated and sedated. EMS was called and patient was hypoxic with pulse ox in the 70s. Taken to the emergency room and then placed on BiPAP and progressively gotten worse and subsequently intubated. In the emergency room, patient's blood pressures in the 180s and she did receive captopril twice. Also received methylprednisolone and bronchodilators. 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 myelopathy Hypertensive urgency Obesity (BMI 30-39.9) On home oxygen therapy Otitis media Home Medications Oxygen, Home [Home Oxygen] 4 - 6 lpm NASAL PRN PRN #0 04/06/19 [Rx Last Taken 07/11/20] atorvastatin 10 mg PO DAILY 10/14/20 [History Last Taken 10/13/20] gabapentin 1,200 mg PO TID 10/14/20 [History Last Taken 10/14/20 1200] lisinopril 40 mg PO DAILY #0 10/17/20 [Rx Last Taken 10/13/20 08:00] albuterol sulfate 2 puff INHALATION Q4H PRN PRN 05/29/21 [History Last Taken Unk nown] budesonide-formoterol [Symbicort] 2 puff INHALATION BID 05/29/21 [History Last Taken Unknown] cholecalciferol (vitamin D3) [Vitamin D3] 1,000 unit PO DAILY 05/29/21 [History Last Taken Unknown] ipratropium-albuterol 3 ml INHALATION Q4H PRN PRN 05/29/21 [History Last Taken Unknown] omeprazole 20 mg PO DAILY 05/29/21 [History Last Taken Unknown] furosemide 40 mg PO DAILY #30 tab 06/01/21 [Rx Last Taken Unknown] potassium chloride [Klor-Con M20] 20 meq PO DAILY #30 tab 06/01/21 [Rx Last Taken Unknown] amlodipine 10 mg PO DAILY #30 tab 08/17/21 [Rx Last Taken Unknown] azithromycin 500 mg PO Q24 #3 tab 08/17/21 [Rx Last Taken Unknown] clopidogrel 75 mg PO DAILY #30 tab 08/17/21 [Rx Last Taken Unknown] insulin glargine [Lantus Solostar U-100 Insulin] 40 unit SUBCUT BID #15 ml 08/17/21 [Rx Last Taken Unknown] insulin lispro [Humalog KwikPen Insulin] See Protocol SUBCUT ACHS #15 ml 1 [Rx Last Taken Unknown] prednisone See Taper PO DAILY #30 tab 08/17/21 [Rx Last Taken Unknown] Allergy/AdvReac Type Severity Reaction Status Date / Time aspirin Allergy Anaphylaxis Verified 09/03/21 14:01 ceftriaxone [From Rocephin] Allergy Rash Verified 09/03/21 14:01 cyclobenzaprine HCl Allergy Rash Verified 09/03/21 14:01 [From Flexeril] levofloxacin [From Levaquin] Allergy Rash Verified 09/03/21 14:01 naproxen [From Naprosyn] Allergy Anaphylaxis Verified 09/03/21 14:01 bupropion HCl AdvReac nightmares Verified 09/03/21 14:01 [From Wellbutrin] doxycycline AdvReac Diarrhea Verified 09/03/21 14:01 Family History Mother Breast cancer Cancer Skin Father COPD (chronic obstructive pulmonary disease) Hypertension Heart disease Cancer Skin Surgical History History of section History of tubal ligation Social History household members: significant other Smoking Status: Former smoker Tobacco: How many years used: 24 how long ago did patient quit smokin, 1ppd second hand exposure: Yes alcohol intake: never substance use type: does not use ROS Review of Systems ROS Unobtainable: due to endotracheal tube Physical Exam Const Constitutional Narrative: Intubated and sedated. Afebrile. HEENT head/scalp atraumatic HEENT Narrative: Slight proptosis Eyes Eyes Narrative: No scleral icterus Resp Resp Narrative: Coarse breath sounds bilaterally Cardio regular rate, regular rhythm, S1 normal heart sound and S2 normal heart sound GI normal to inspection, nondistended, normoactive bowel sounds, soft to palpation, non-tender and non-distended Extremity no clubbing, cyanosis or edema Skin General Skin Exam: turgor normal Rashes: no rashes Results Lab / Micro Data Attestation: I reviewed the patient's lab results. Result Diagrams: 09/03/21 14:30 09/03/21 14:30 EKG Initial EKG: Attestation: I personally reviewed and interpreted this EKG as follows: Prior EKG tracings: available for review EKG Rhythm Intrepretation: Sinus Rhythm (Anterior Q waves. Unchanged from August 17, 2021.) Assessment & Plan Assessment/Plan (1) Acute on chronic respiratory failure with hypoxia and hypercapnia: (2) COPD exacerbation: PLAN: Patient seen and examined independently. Data and vitals reviewed. I agree with the above note by the nurse practitioner. 1. Acute on chronic hypoxic and hypercapnic respiratory failure * Likely multifactorial due to underlying COPD, acute exacerbation of COPD and possible CHF exacerbation. * Patient is currently intubated * CCM on consult * Wean oxygen as able 2. Acute COPD exacerbation * Bronchodilators as well as methylprednisolone 3. Possible acute HFpEF * EF 75% from 2D echocardiogram on 05/29/2021. * Will give dose of IV furosemide 4. Elevated troponins * Trending down, suggesting demand ischemia * Continue with clopidogrel 5. Diabetes mellitus type 2 * As patient is currently n.p.o. we will cut her dose of basal insulin to 20 twice daily * Sliding scale insulin 6. VTE prophylaxis * High risk and patient will be on enoxaparin. Charges/Coding Visit Charges Inpatient E&M: 92399 Dis[facility] Hosp
--- NOTE | 2021-09-03 18:15 | RAD_ITS ---
EXAM: XR ABDOMEN, 1 VIEW CLINICAL INDICATION: OJ placement TECHNIQUE: Frontal supine view of the abdomen/pelvis. This report was created using [employer] report generation technology. COMPARISON: None. FINDINGS: LOWER THORAX: No acute pathology. GASTROINTESTINAL TRACT: Stool throughout the colon. Non-obstructive. No bowel or stomach distention. ORGANS: Unremarkable as visualized. No organomegaly. No abnormal calcifications. BONES/JOINTS: Degenerative findings in the lumbar spine. SOFT TISSUES: There are bilateral tubal ligation clips. TUBES, LINES AND DEVICES: There is a feeding tube/ nasogastric tube noted. The tip is in the region of the stomach. RAD/Abdomen Single View (Portable) IMPRESSION: 1. There is a feeding tube/ nasogastric tube noted. The tip is in the region of the stomach. 2. Stool throughout the colon. Electronically Signed: Joni Castañeda MD at 18:53 EDT , Service support ,
--- NOTE | 2021-09-03 18:21 | ED.RN ---
attempted to call report, ICU will call back.
[2021-09-03 20:10] LABS: Bedside Glucose 383 mg/dL (70-110)
[2021-09-03] MEDS: Insulin Lispro 100 UNIT/ML INSULN.PEN SC (20:11)
[2021-09-03] MEDS: Propofol 10MG/Ml 1,000 MG/100 ML Bottle 22.6 MG CONT INF (20:25)
[2021-09-03 20:44] LABS: Troponin-I HS 248 pg/mL (3.0-54.0)
[2021-09-03] MEDS: Chlorhexidine 15 ML PO (22:40)
[2021-09-03] MEDS: 0.9% Saline Lock 10 ML Syringe IV (22:42)
[2021-09-04] VITALS (36 sets, daily range): BP systolic 114–148; BP diastolic 69–92; PULSE 72–100; RESP 12–16; TEMP 36.8–37.1; O2SAT 89–97
[2021-09-04 00:06] LABS: Bedside Glucose 345 mg/dL (70-110)
[2021-09-04] MEDS: Insulin Lispro 100 UNIT/ML INSULN.PEN SC ×4 (00:11→17:03)
[2021-09-04] MEDS: Propofol 10MG/Ml 1,000 MG/100 ML Bottle 22.6 MG CONT INF ×6 (00:24→19:38)
--- NOTE | 2021-09-04 03:21 | NURSING ---
Glasses found broken at time of admission.
[2021-09-04] MEDS: Ipratropium/Albuterol Sulfate 3 ML AMPUL.NEB INHALATION ×6 (03:54→22:55)
[2021-09-04 04:27] LABS: Absolute Lymphocyte Count 0.69 X10^3/uL (0.83-4.51); Absolute Neutrophil Count 8.4 X10^3/uL (2.0-7.7); Basophil# 0.01 X10^3/uL; Basophil% 0.1 % (0-1); Hematocrit 48.3 % (37-47); Hemoglobin 15.1 g/dL (12.0-15.0); Lymphocyte # 0.69 X10^3/ul (0.83-4.51); Lymphocyte % 7.4 % (19-41); Mean Corp Hgb Conc 31.3 g/dL (32-36); Mean Corpuscular Hgb 29.4 pg (27.0-32.0); Mean Corpuscular Volume 94.2 fL (81-99); Mean Platelet Vol. 11.2 fl (6.2-12.0); Monocyte# 0.18 X10^3/uL; Monocyte% 1.9 % (0-10); NRBC Flagged by Analyzer 0 % (0-5); Neutrophil # 8.39 X10^3/uL (2.7-7.7); Neutrophil % 90.3 % (47-70); Platelet Count 211 K/mm3 (150-450); RBC Distribution Width CV 13.3 % (11.6-14.6); RBC Distribution Width SD 46.4 fl (35.1-43.9); Red Blood Count 5.13 M/mm3 (4.2-5.4); White Blood Count 9.3 K/mm3 (4.4-11.0)
[2021-09-04 04:44] LABS: ALB/GLOB Ratio 0.6 RATIO (0.9-2.4); AST(SGOT) 10 U/L (15-37); Alanine Aminotransfer ALT/SGPT 27 U/L (13-56); Albumin, Serum 2.4 g/dL (3.2-5.0); Alkaline Phosphatase 122 U/L (45-117); Anion Gap 5 (5-15); BUN 25 mg/dL (7-18); BUN/Creat Ratio 34.2 RATIO (10-20); Calcium,Total 8.9 mg/dL (8.5-10.1); Chloride 93 mmol/L (98-107); Creatinine, Serum 0.73 mg/dL (0.55-1.02); EST Glomerular Filtration Rate 90 mL/min (>60); Est Glom Filt Rate - Afr Amer 108 mL/min (>60); Estimated Creatinine Clearance 73.73 ml/min; Globulin 3.7 g/dL (2.2-4.2); Glucose 324 mg/dL (74-106); Potassium 4.2 mmol/L (3.5-5.1); Protein, Total 6.1 g/dL (6.4-8.2); Sodium Level 138 mmol/L (136-145)
[2021-09-04 05:06] LABS: Bedside Glucose 312 mg/dL (70-110)
[2021-09-04] MEDS: 0.9% Saline Lock 10 ML Syringe IV (05:35)
[2021-09-04 06:55] LABS: Allen Test Positive; Base Excess 22 mmol/L (-2 to +2); Bicarbonate 44.2 mmol/L (22-26); Blood Gas Specimen Type ART; FI02 40; Mode AC; O2 Delivery Device Adult Vent; PEEP 5; PO2 98 mmHG (75-100); RR 14; SITE R Radial; SO2 98 % (95-99); Total Carbon Dioxide 46 mmol/L; Vt 450; pCO2 49.5 mmHg (35-45); pH 7.56 (7.35-7.45)
--- NOTE | 2021-09-04 07:56 | PN.HOSP_ITS ---
Subjective Subjective The patient is intubated and sedated on propofol and fentanyl. Admitted with acute hypoxic and hypercarbic respiratory failure. Blood pressure was high in ER. Currently 134/82 Objective Data Objective Data Vital Signs: Vital Signs Temp Pulse Resp BP Pulse Ox 98.2 F 97 15 134/82 H 90 09/04/21 04:00 09/04/21 07:00 09/04/21 07:00 09/04/21 07:00 09/04/21 07:00 Oxygen Flow Rate (L/min) 5 Oxygen Delivery Method Mechanical Ventilator Weight: 238 lb 12.17 oz Body Mass Index (BMI) 43.7 Intake & Output: Intake and Output for Last 24 Hours 09/02/21 09/03/21 09/04/21 23:59 23:59 23:59 Intake Total 190.88 / 220.98 320.68 / 320.68 Output Total 1000 / 1600 1000 / 1000 Balance -809.12 / -1379.02 -679.32 / -679.32 Lab / Micro Data Result Diagrams: 09/04/21 04:20 09/04/21 04:20 Labs: Laboratory Results - last 24 hr 09/03/21 14:30: WBC 13.2 H, RBC 5.32, Hgb 15.7 H, Hct 53.4 H, MCV 100.4 H, MCH 29.5, MCHC 29.4 L, RDW Std Deviation 50.4 H, RDW Coeff of Marcy 13.6, Plt Count 221, MPV 11.0, Immature Gran % (Auto) 0.800, Neut % (Auto) 81.9 H, Lymph % (Auto) 9.0 L, [place] % (Auto) 7.3, Eos % (Auto) 0.6, Baso % (Auto) 0.4, Absolute Neuts (auto) 10.8 H, Absolute Lymphs (auto) 1.18, Nucleated RBC % 0 09/03/21 14:30: Sodium 138, Potassium 4.9, Chloride 93 L, Carbon Dioxide 43.0 H, Anion Gap 2 L, BUN 21 H, Creatinine 0.62, Estim Creat Clear Calc 86.81, Est GFR (MDRD) Af Amer 131, Est GFR (MDRD) Non-Af 108, BUN/Creatinine Ratio 33.7 H, Glucose 368 H, Calcium 9.6, Magnesium 2.2, Troponin I High Sens 314 H* 09/03/21 14:30: PT 12.0, INR 1.0, APTT 26.2 09/03/21 14:36: B-Natriuretic Peptide 194.9 H 09/03/21 16:25: Troponin I High Sens 290 H* 09/03/21 20:05: POC Glucose 383 H 09/03/21 20:17: Troponin I High Sens 248 H* 09/04/21 00:01: POC Glucose 345 H 09/04/21 04:20: WBC 9.3, RBC 5.13, Hgb 15.1 H, Hct 48.3 H, MCV 94.2 D, MCH 29.4, MCHC 31.3 L D, RDW Std Deviation 46.4 H, RDW Coeff of Marcy 13.3, Plt Count 211, MPV 11.2, Immature Gran % (Auto) 0.300, Neut % (Auto) 90.3 H, Lymph % (Auto) 7.4 L, [place] % (Auto) 1.9, Eos % (Auto) 0.0, Baso % (Auto) 0.1, Absolute Neuts (auto) 8.4 H, Absolute Lymphs (auto) 0.69 L, Nucleated RBC % 0 09/04/21 04:20: Sodium 138, Potassium 4.2, Chloride 93 L, Carbon Dioxide 40.0 H, Anion Gap 5, BUN 25 H, Creatinine 0.73, Estim Creat Clear Calc 73.73, Est GFR (MDRD) Af Amer 108, Est GFR (MDRD) Non-Af 90, BUN/Creatinine Ratio 34.2 H, Glucose 324 H, Calcium 8.9, Total Bilirubin 0.40, AST 10 L, ALT 27, Alkaline Phosphatase 122 H, Total Protein 6.1 L, Albumin 2.4 L, Globulin 3.7, Albumin/Globulin Ratio 0.6 L 09/04/21 05:00: POC Glucose 312 H Micro: Microbiology 09/03/21 14:09 Mucosa - Nasopharyngeal Respiratory Panel (PCR) - Final 09/03/21 14:31 Nasal Secretion SARS-CoV-2 Antigen (Rapid) - Final ABG Data ABG results: ABG 09/03/21 09/03/21 09/04/21 14:42 16:45 06:48 Specimen Type ART ART ART Sample Site R Radial R Radial R Radial pH 7.22 L 7.22 L 7.56 H Bicarbonate Actual 47.3 H 49.7 H 44.2 H Total CO2 > 50 > 50 46 Base Excess 20 H 22 H 22 H O2 Saturation 85 L 89 L 98 O2 % 60 40 ABG pCO2 115.5 H* 123.0 H* 49.5 H ABG pO2 65 L 75 98 Baudilio Test Positive Positive Positive Respiration Rate 14 14 O2 Delivery Device Cannula BiPAP Adult Vent Liter Flow 5.0 Vent Mode AC Tidal Volume 450 450 POC PEEP 5 Crit Call To/Read Back Yes Yes Blood Gas Notified Whom Dr.Andes Cannon Clinical Comments Radiography Diagnostic Testing: Radiology Impression Chest X-Ray 09/03/21 14:14 IMPRESSION: Cardiomegaly and CHF. Electronically Signed: Luis Mistry MD at 15:13 EDT , Service support , Chest X-Ray 09/03/21 18:10 IMPRESSION: Pulmonary findings appear worse. Electronically Signed: Joni Castañeda MD at 18:53 EDT , Service support , KUB X-Ray 09/03/21 18:15 IMPRESSION: 1. There is a feeding tube/ nasogastric tube noted. The tip is in the region of the stomach. 2. Stool throughout the colon. Electronically Signed: Joni Castañeda MD at 18:53 EDT , Service support , Physical Exam Narrative General: Intubated, sedated on ventilator. HEENT: Atraumatic, PERRLA, EOMI, Normocephalic Oral: ET and OG tube. Neck: Supple, No JVD, Negative Carotid Bruits Lungs: Air entry equal bilaterally. On vent support. Bilateral expiratory wheezing present Cardiovascular: Sinus rhythm, Normal S1, Normal S2, No murmurs Abdomen: Bowel Sounds Present, Soft, Non Tender, Non-Distended : No renal angle tenderness. No suprapubic tenderness. Extremities: Mild bilateral ankle edema, Capillary Refill Less than 3 Seconds Skin: No rashes, No breakdown Musculoskeletal: No Tenderness to Palpation of Joints or Extremities Neurological: Exam nonfocal. Sedated Psych/Mental Status: Sedated. Assessment & Plan Assessment/Plan (1) Acute on chronic respiratory failure with hypoxia and hypercapnia: (2) COPD exacerbation: PLAN: Patient seen and examined independently. Data and vitals reviewed. I agree with the above note by the nurse practitioner. 1. Acute on chronic hypoxic and hypercapnic respiratory failure: Patient is intubated. Comanaged with manager export * Likely multifactorial due to underlying COPD, acute exacerbation of COPD and possible CHF exacerbation. 2. Acute COPD exacerbation: Bronchodilators as well as methylprednisolone 3. Possible acute HFpEF * EF 75% from 2D echocardiogram on 05/29/2021. * Was given IV furosemide 4. Elevated troponins: High troponin, trending down suggestive of demand ischemia, type II [place]. Continue clopidogrel. 5. Diabetes mellitus type 2: Glucose is 320 in the morning labs. * As patient is currently n.p.o. Lantus insulin 40 5 subcutaneous twice daily, along with sliding scale insulin. 6. VTE prophylaxis * High risk and patient will be on enoxaparin. Charges/Coding Visit Charges Inpatient E&M: 77650 [facility] Hosp L3
--- NOTE | 2021-09-04 08:25 | CON.PCM.CC_ITS ---
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 Continue new vent settings 2. Spontaneous breathing and awakening trial per protocol 3. Check leak prior to extubation 4. Diuresis and blood pressure control. Agree with bronchodilators and steroids 5. No cardiac intervention or continued troponin trends needed from my perspective 6. Increase Lantus given steroid therapy IMPRESSIONS: 1. Acute on chronic combined respiratory failure Unclear etiology. Patient did have a chest x-ray suggestive of pulmonary edema and elevated blood pressure while on BiPAP. Patient failed BiPAP trial and was subsequently intubated. Patient has been intubated for less than 24 hours, but appears to be improved. We will continue with mechanical ventilation for now and attempt to optimize blood pressure and volume status. Patient does have some swelling of the tongue and lips, so angioedema would be a consideration. Will need to check a leak prior to extubation. Agree with steroid and bronchodilator therapy. 2. Elevated troponin Clinical suspicion for elevation in troponin secondary to supply demand mismatch in the setting of hypoxia. Continue with telemetry, but doubt extensive cardiac investigation would be indicated. 3. Diabetes mellitus with insulin requirements Patient with significantly elevated glucose levels. This is likely in part secondary to steroid therapy. Will increase Lantus. Okay to start tube feeds from my perspective. 4. Morbid obesity/COPD/CARSON/questionable compliance/GERD/repeated hospitalizations Complicates care, management, recovery and prognosis. Okay to continue with baseline medications. TIME: 37 minutes critical care time spent addressing patient's acute on chronic respiratory failure, elevated troponin, diabetes mellitus, review of all data and collaboration with care team (8 AM to 9 AM) HPI Consult Data Date of Consult: 09/04/21 HPI Narrative HPI Narrative: ESTIVEN LONG is a 50 F, with past medical history listed below and well-known to me from the outpatient office, who presents to [facility] on 09/03/2021 secondary to unresponsiveness. Patient reportedly quit smoking 6 months ago, but does wear 4 L nasal cannula at all times. Patient had called EMS secondary to some mild chest discomfort and worsening shortness of breath. On EMS arrival, the patient was noted to be saturating 75% on her baseline 4 L and had depressed mental status. Patient was started on higher flow oxygen with some improvement. Patient had reported cough, but no fever or chills. Patient did report sick contacts, but was unaware that her Covid status. In the ER, patient was afebrile, but hypoxic on baseline nasal cannula oxygen. Patient was hypertensive as high as 187/101, tachycardic and tachypneic. The patient was placed on BiPAP for some time following an ABG showing hypercarbia. However, after 1 hour of BiPAP patient CO2 increased to 123 so the patient was intubated. Patient's troponins were initially elevated, but trended down after control of hypoxia and hypercarbia. Covid test was negative, but a viral panel was also sent. This subsequently was noted to be negative. Laboratory work-up showed a white blood cell count of 13.2, hemoglobin of 15.7, normal coagulation studies, elevated bicarbonate of 43, but otherwise normal chemistry. BNP was slightly elevated at 194. Chest x-ray was suggestive of cardiomegaly and CHF. Since being in the intensive care unit, patient has had significant improvement in oxygenation. No fevers have been noted. Patient has been tachycardic and hyperglycemic. Patient's Lantus has been increased. An ABG was not done after intubation, but was completed this morning. This showed a respiratory alkalosis, so tidal volume and respiratory rate were decreased. Unable to obtain a review of systems secondary to patient's intubation. [facility] Medical History Asthma Benign essential hypertension Chronic back pain Chronic pain COPD COPD with acute exacerbation Coronary artery disease Diabetes Diabetes mellitus, type II Former smoker GERD (gastroesophageal reflux disease) Herniated thoracic disc without myelopathy Hypertensive urgency Obesity (BMI 30-39.9) On home oxygen therapy Otitis media Medical History unable to obtain Home Medications Oxygen, Home [Home Oxygen] 4 - 6 lpm NASAL PRN PRN #0 04/06/19 [Rx Last Taken 07/11/20] atorvastatin 10 mg PO DAILY 11/21/20 [History Last Taken 10/13/20] gabapentin 1,200 mg PO TID 10/14/20 [History Last Taken 10/14/20 1200] lisinopril 40 mg PO DAILY #0 10/17/20 [Rx Last Taken 10/13/20 08:00] albuterol sulfate 2 puff INHALATION Q4H PRN PRN 05/29/21 [History Last Taken Unknown] budesonide-formoterol [Symbicort] 2 puff INHALATION BID 05/29/21 [History Last Taken Unknown] cholecalciferol (vitamin D3) [Vitamin D3] 1,000 unit PO DAILY 05/29/21 [History Last Taken Unknown] ipratropium-albuterol 3 ml INHALATION Q4H PRN PRN 05/29/21 [History Last Taken Unknown] omeprazole 20 mg PO DAILY 05/29/21 [History Last Taken Unknown] furosemide 40 mg PO DAILY #30 tab 06/01/21 [Rx Last Taken Unknown] potassium chloride [Klor-Con M20] 20 meq PO DAILY #30 tab 06/01/21 [Rx Last Taken Unknown] amlodipine 10 mg PO DAILY #30 tab 08/17/21 [Rx Last Taken Unknown] azithromycin 500 mg PO Q24 #3 tab 08/17/21 [Rx Last Taken Unknown] clopidogrel 75 mg PO DAILY #30 tab 08/17/21 [Rx Last Taken Unknown] insulin glargine [Lantus Solostar U-100 Insulin] 40 unit SUBCUT BID #15 ml 08/17/21 [Rx Last Taken Unknown] insulin lispro [Humalog KwikPen Insulin] See Protocol SUBCUT ACHS #15 ml 08/17/21 [Rx Last Taken Unknown] prednisone See Taper PO DAILY #30 tab 08/17/21 [Rx Last Taken Unknown] Allergy/AdvReac Type Severity Reaction Status Date / Time aspirin Allergy Anaphylaxis Verified 09/03/21 14:01 ceftriaxone [From Rocephin] Allergy Rash Verified 09/03/21 14:01 cyclobenzaprine HCl Allergy Rash Verified 09/03/21 14:01 [From Flexeril] levofloxacin [From Levaquin] Allergy Rash Verified 09/03/21 14:01 naproxen [From Naprosyn] Allergy Anaphylaxis Verified 09/03/21 14:01 bupropion HCl AdvReac nightmares Verified 09/03/21 14:01 [From Wellbutrin] doxycycline AdvReac Diarrhea Verified 09/03/21 14:01 Family History Mother Breast cancer Cancer Skin Father COPD (chronic obstructive pulmonary disease) Hypertension Heart disease Cancer Skin Surgical History History of section History of tubal ligation Surgical History unable to obtain Social History household members: significant other Smoking Status: Former smoker Tobacco: How many years used: 24 how long ago did patient quit smokin, 1ppd second hand exposure: Yes alcohol intake: never substance use type: does not use ROS Review of Systems ROS Unobtainable: due to endotracheal tube Physical Exam Const General Appearance: intubated, patient mechanically ventilated and other Sedated HEENT normocephalic and head/scalp atraumatic HEENT Narrative: Some swelling appreciated of the tongue and lips Eyes conjunctivae normal and no scleral icterus Neck supple General: trachea midline Chest inspection of chest normal Chest: symmetrical chest wall rise; Negative for crepitus Resp Effort and Inspection: symmetric chest movement and mechanically ventilated Auscultation: rhonchi throughout Cardio regular rhythm, S1 normal heart sound, S2 normal heart sound and peripheral pulses 2+ throughout Rate: tachycardic GI normal to inspection, nondistended, normoactive bowel sounds, soft to palpation and non-tender Extremity normal capillary refill and no clubbing, cyanosis or edema General Extremity: no tenderness to palpation of joints or extremities Skin General Skin Exam: no breakdown and turgor normal Lesions: no lesions Rashes: no rashes Neuro moves all extremities Sensorium / Orientation: sedated on vent RASS: -2 Psych Appearance: intubated Lab / Micro Data Result Diagrams: 09/04/21 04:20 09/04/21 04:20 Labs: Laboratory Results - last 24 hr 09/03/21 14:30: WBC 13.2 H, RBC 5.32, Hgb 15.7 H, Hct 53.4 H, MCV 100.4 H, MCH 29.5, MCHC 29.4 L, RDW Std Deviation 50.4 H, RDW Coeff of Marcy 13.6, Plt Count 221, MPV 11.0, Immature Gran % (Auto) 0.800, Neut % (Auto) 81.9 H, Lymph % (Auto) 9.0 L, [place] % (Auto) 7.3, Eos % (Auto) 0.6, Baso % (Auto) 0.4, Absolute Neuts (auto) 10.8 H, Absolute Lymphs (auto) 1.18, Nucleated RBC % 0 09/03/21 14:30: Sodium 138, Potassium 4.9, Chloride 93 L, Carbon Dioxide 43.0 H, Anion Gap 2 L, BUN 21 H, Creatinine 0.62, Estim Creat Clear Calc 86.81, Est GFR (MDRD) Af Amer 131, Est GFR (MDRD) Non-Af 108, BUN/Creatinine Ratio 33.7 H, Glucose 368 H, Calcium 9.6, Magnesium 2.2, Troponin I High Sens 314 H* 09/03/21 14:30: PT 12.0, INR 1.0, APTT 26.2 09/03/21 14:36: B-Natriuretic Peptide 194.9 H 09/03/21 16:25: Troponin I High Sens 290 H* 09/03/21 20:05: POC Glucose 383 H 09/03/21 20:17: Troponin I High Sens 248 H* 09/04/21 00:01: POC Glucose 345 H 09/04/21 04:20: WBC 9.3, RBC 5.13, Hgb 15.1 H, Hct 48.3 H, MCV 94.2 D, MCH 29.4, MCHC 31.3 L D, RDW Std Deviation 46.4 H, RDW Coeff of Marcy 13.3, Plt Count 211, MPV 11.2, Immature Gran % (Auto) 0.300, Neut % (Auto) 90.3 H, Lymph % (Au to) 7.4 L, [place] % (Auto) 1.9, Eos % (Auto) 0.0, Baso % (Auto) 0.1, Absolute N euts (auto) 8.4 H, Absolute Lymphs (auto) 0.69 L, Nucleated RBC % 0 09/04/21 04:20: Sodium 138, Potassium 4.2, Chloride 93 L, Carbon Dioxide 40.0 H, Anion Gap 5, BUN 25 H, Creatinine 0.73, Estim Creat Clear Calc 73.73, Est GFR (MDRD) Af Amer 108, Est GFR (MDRD) Non-Af 90, BUN/Creatinine Ratio 34.2 H, Glucose 324 H, Calcium 8.9, Total Bilirubin 0.40, AST 10 L, ALT 27, Alkaline Phosphatase 122 H, Total Protein 6.1 L, Albumin 2.4 L, Globulin 3.7, Albumin/Globulin Ratio 0.6 L 09/04/21 05:00: POC Glucose 312 H Micro: Microbiology 09/03/21 14:09 Mucosa - Nasopharyngeal Respiratory Panel (PCR) - Final 09/03/21 14:31 Nasal Secretion SARS-CoV-2 Antigen (Rapid) - Final ABG Data ABG results: ABG 09/03/21 09/03/21 09/04/21 14:42 16:45 06:48 Specimen Type ART ART ART Sample Site R Radial R Radial R Radial pH 7.22 L 7.22 L 7.56 H Bicarbonate Actual 47.3 H 49.7 H 44.2 H Total CO2 > 50 > 50 46 Base Excess 20 H 22 H 22 H O2 Saturation 85 L 89 L 98 O2 % 60 40 ABG pCO2 115.5 H* 123.0 H* 49.5 H ABG pO2 65 L 75 98 Baudilio Test Positive Positive Positive Respiration Rate 14 14 O2 Delivery Device Cannula BiPAP Adult Vent Liter Flow 5.0 Vent Mode AC Tidal Volume 450 450 POC PEEP 5 Crit Call To/Read Back Yes Yes Blood Gas Notified Whom Dr.Andes Cannon Clinical Comments Radiology Impression Chest X-Ray 09/03/21 14:14 IMPRESSION: Cardiomegaly and CHF. Electronically Signed: Luis Mistry MD at 15:13 EDT , Service support , Chest X-Ray 09/03/21 18:10 IMPRESSION: Pulmonary findings appear worse. Electronically Signed: Joni Castañeda MD at 18:53 EDT , Service support , KUB X-Ray 09/03/21 18:15 IMPRESSION: 1. There is a feeding tube/ nasogastric tube noted. The tip is in the region of the stomach. 2. Stool throughout the colon. Electronically Signed: Joni Castañeda MD at 18:53 EDT , Service support , Charges/Coding Procedures Hospitalists Procedures: [id number] [facility] 1st Hr
[2021-09-04] MEDS: CHLORHEXIDINE GLUC 2% CLOTH 1 EACH TOWELETTE TOPICAL (09:29)
[2021-09-04] MEDS: Enoxaparin 40 MG/0.4 ML Syringe SC (09:29)
[2021-09-04] MEDS: Chlorhexidine 15 ML PO ×2 (09:29→21:38)
[2021-09-04] MEDS: Clopidogrel Bisulfate 75 MG Tablet GT (09:29)
[2021-09-04] MEDS: Famotidine 20 MG Tablet 40 MG GT ×2 (09:30→21:38)
[2021-09-04] MEDS: Vital High Protein 1,000 ML 20 ML GT (12:30)
[2021-09-04 12:35] LABS: Bedside Glucose 227 mg/dL (70-110)
--- NOTE | 2021-09-04 14:56 | CASEMGMT ---
Readmission chart review: 2020 admits: 05/23-06/01/21 Acute resp failure, COPD, asthma-sent home w/ increased O2 4L at rest and 7L w/ exertion 08/16-08/17/21 COPD exac, elev trop-sent home again with increased O2, 7l at rest and 8L w/ exertion-pt declined palliative previously 09/03/2137-[id number]-[id number] currently on 50% vent-per triage note, pt was 75% on 4Lnc but pt is supposed to be on 7L at rest See CM note from 08/16/21 and SW note from 05/26/21. Pt was referred to palliative but has declined services and always chooses to go home with sig other despite living conditions. Pt with hx of COPD and heart failure but per pulm note, pt has never had pulmonary fxn testing. Pt was set up to f/u at [facility] [place] at the end of May but pt no showed x2. Per notes, pt has hx of non-compliance. Pt has home oxygen thru [facility] as well as a nebulizer.
--- NOTE | 2021-09-04 15:24 | CASEMGMT ---
Readmission chart review: 2020 admits: 05/23-06/01/21 Acute resp failure, COPD, asthma-pt was on vent x2 days-sent home w/ increased O2 4L at rest and 7L w/ exertion 08/16-08/17/21 COPD exac, elev trop-sent home again with increased O2, 7l at rest and 8L w/ exertion-pt declined palliative previously 09/03/2125-[id number]-[id number] currently on 50% vent-per triage note, pt was 75% on 4Lnc but pt is supposed to be on 7L at rest See CM note from 08/16/21 and SW note from 05/26/21 in regards to DME and home living situation. Pt was referred to palliative but has declined services and always chooses to go home with sig other despite living conditions. Pt with hx of COPD and heart failure but per pulm note, pt has never had pulmonary fxn testing. Pt was set up to f/u at [facility] [place] at the end of May but pt no showed x2. Pt was also scheduled to f/u with Dr. Melton' [employer] on 08/24/21 and per office, pt did not show up for this appt either. Per notes, pt has hx of non-compliance. Pt has home oxygen thru [facility] [place] and was provided larger concentrator after last visit. Pt also has a nebulizer. Pt does have elevated troponins but per notes, most likely d/t demand ischemia from hypoxia and they are trending down. Pt also with hyperglycemia but likely d/t steroid therapy per notes. CM to follow for further discharge planning/needs. SStmai ROACH CM
[2021-09-04 17:10] LABS: Bedside Glucose 221 mg/dL (70-110)
[2021-09-05] VITALS (39 sets, daily range): BP systolic 114–169; BP diastolic 68–103; PULSE 61–97; RESP 12–20; TEMP 35.8–36.6; O2SAT 89–95
[2021-09-05] MEDS: Propofol 10MG/Ml 1,000 MG/100 ML Bottle 22.6 MG CONT INF ×3 (00:15→08:08)
[2021-09-05] MEDS: Insulin Lispro 100 UNIT/ML INSULN.PEN SC ×5 (00:20→23:42)
[2021-09-05 01:26] LABS: Bedside Glucose 223 mg/dL (70-110)
[2021-09-05] MEDS: Ipratropium/Albuterol Sulfate 3 ML AMPUL.NEB INHALATION ×6 (02:45→23:32)
[2021-09-05 05:36] LABS: Bedside Glucose 248 mg/dL (70-110)
[2021-09-05 05:42] LABS: Absolute Lymphocyte Count 0.77 X10^3/uL (0.83-4.51); Absolute Neutrophil Count 12.4 X10^3/uL (2.0-7.7); Basophil# 0.03 X10^3/uL; Basophil% 0.2 % (0-1); Eosinophil# 0.02 X10^3/uL; Eosinophils% 0.1 % (0-5); Hematocrit 48.6 % (37-47); Hemoglobin 15.1 g/dL (12.0-15.0); Lymphocyte # 0.77 X10^3/ul (0.83-4.51); Lymphocyte % 5.5 % (19-41); Mean Corp Hgb Conc 31.1 g/dL (32-36); Mean Corpuscular Hgb 29.5 pg (27.0-32.0); Mean Corpuscular Volume 94.9 fL (81-99); Mean Platelet Vol. 11.3 fl (6.2-12.0); Monocyte# 0.69 X10^3/uL; Monocyte% 4.9 % (0-10); NRBC Flagged by Analyzer 0 % (0-5); Neutrophil # 12.39 X10^3/uL (2.7-7.7); Neutrophil % 88.9 % (47-70); POSITIVE COUNT YES; Platelet Count 190 K/mm3 (150-450); RBC Distribution Width CV 13.6 % (11.6-14.6); RBC Distribution Width SD 47.7 fl (35.1-43.9); Red Blood Count 5.12 M/mm3 (4.2-5.4)
[2021-09-05 05:46] LABS: Differential Indicated SCAN CRITERIA MET
[2021-09-05 06:08] LABS: ALB/GLOB Ratio 0.7 RATIO (0.9-2.4); AST(SGOT) 10 U/L (15-37); Alanine Aminotransfer ALT/SGPT 22 U/L (13-56); Albumin, Serum 2.5 g/dL (3.2-5.0); Alkaline Phosphatase 103 U/L (45-117); Anion Gap 4 (5-15); BUN 31 mg/dL (7-18); BUN/Creat Ratio 45.3 RATIO (10-20); Calcium,Total 8.9 mg/dL (8.5-10.1); Chloride 92 mmol/L (98-107); Creatinine, Serum 0.68 mg/dL (0.55-1.02); EST Glomerular Filtration Rate 97 mL/min (>60); Est Glom Filt Rate - Afr Amer 117 mL/min (>60); Estimated Creatinine Clearance 79.15 ml/min; Globulin 3.8 g/dL (2.2-4.2); Glucose 246 mg/dL (74-106); Potassium 4.6 mmol/L (3.5-5.1); Protein, Total 6.3 g/dL (6.4-8.2); Sodium Level 139 mmol/L (136-145)
[2021-09-05 06:20] LABS: Differential Comment SCANNED; Platelet Estimate ADEQUATE (ADEQ)
--- NOTE | 2021-09-05 07:17 | PN.CC_ITS ---
Assessment & Plan Assessment/Plan (1) CARSON (obstructive sleep apnea): (2) COPD exacerbation: (3) Morbid obesity with BMI of 40.0-44.9, adult: (4) Elevated troponin: (5) Diabetes mellitus, type II: QUALIFIERS: Diabetes mellitus complication status: with other specified complication Diabetes mellitus half-way insulin use: with half-way use Qualified Code(s): E11.69 - Type 2 diabetes mellitus with other specified complication; Z79.4 - [facility] care (current) use of insulin PLAN: RECOMMENDATIONS: 1. Continue current vent settings 2. Spontaneous breathing and awakening trial per protocol. Check leak prior to extubation 3. Transition to Precedex for sedation to facilitate spontaneous breathing trial 4. Diuresis and blood pressure control. Agree with bronchodilators and steroids 5. No cardiac intervention or continued troponin trends needed from my perspective 6. Aggressive diuresis ordered IMPRESSIONS: 1. Acute on chronic combined respiratory failure Unclear etiology. Patient did have a chest x-ray suggestive of pulmonary edema and elevated blood pressure while on BiPAP. Patient failed BiPAP trial and was subsequently intubated. Patient has been intubated for over 24 hours, but appears to be improved. Patient unable to pass spontaneous awakening trial secondary to sedation or poor mechanics. We will transition to Precedex therapy and diuresis as tolerated. Agree with steroid and bronchodilator therapy. 2. Elevated troponin Clinical suspicion for elevation in troponin secondary to supply demand mismatch in the setting of hypoxia. Continue with telemetry, but doubt extensive cardiac investigation would be indicated. 3. Diabetes mellitus with insulin requirements Patient with significantly elevated glucose levels. This is likely in part secondary to steroid therapy. Will continue Lantus. Okay to continue tube feeds from my perspective. 4. Morbid obesity/COPD/CARSON/questionable compliance/GERD/repeated hospitalizations Complicates care, management, recovery and prognosis. Okay to continue with baseline medications. TIME: 33 minutes critical care time spent addressing patient's acute on chronic respiratory failure, elevated troponin, diabetes mellitus, review of all data and collaboration with care team (5:45 AM to 6:45 AM) Subjective Subjective Patient did okay overnight. No acute issues were reported. Patient has been able to be weaned to minimal vent settings, but did not tolerate spontaneous awakening trial this morning. Facial swelling is improved per nursing. Nursing does report patient can withdrawal tongue into the mouth with oral care. Objective Data Objective Data Vital Signs: Vital Signs Temp Pulse Resp BP Pulse Ox 36.4 C L 72 12 129/69 H 90 09/05/21 04:00 09/05/21 07:00 09/05/21 07:00 09/05/21 07:00 09/05/21 07:00 Oxygen Flow Rate (L/min) 5 Oxygen Delivery Method Mechanical Ventilator Weight: 108.2 kg Body Mass Index (BMI) 43.7 Intake & Output: Intake and Output for Last 24 Hours 09/03/21 09/04/21 09/05/21 23:59 23:59 23:59 Intake Total 190.88 / 220.98 1093.59 / 1131.19 564.35 / 564.35 Output Total 1000 / 1600 1650 / 1650 600 / 600 Balance -809.12 / -1379.02 -556.41 / -518.81 -35.65 / -35.65 Lab / Micro Data Result Diagrams: 09/05/21 05:30 09/05/21 05:30 Labs: Laboratory Results - last 24 hr 09/04/21 12:00: POC Glucose 227 H 09/04/21 17:02: POC Glucose 221 H 09/05/21 00:24: POC Glucose 223 H 09/05/21 05:09: POC Glucose 248 H 09/05/21 05:30: WBC 14.0 H, RBC 5.12, Hgb 15.1 H, Hct 48.6 H, MCV 94.9, MCH 29.5, MCHC 31.1 L, RDW Std Deviation 47.7 H, RDW Coeff of Marcy 13.6, Plt Count 190, MPV 11.3, Immature Gran % (Auto) 0.400, Neut % (Auto) 88.9 H, Lymph % (Auto) 5.5 L, [place] % (Auto) 4.9, Eos % (Auto) 0.1, Baso % (Auto) 0.2, Absolute Neuts (auto) 12.4 H, Absolute Lymphs (auto) 0.77 L, Nucleated RBC % 0, Differen tial Comment SCANNED, Platelet Estimate ADEQUATE 09/05/21 05:30: Sodium 139, Potassium 4.6, Chloride 92 L, Carbon Dioxide 43.0 H, Anion Gap 4 L, BUN 31 H, Creatinine 0.68, Estim Creat Clear Calc 79.15, Est GFR (MDRD) Af Amer 117, Est GFR (MDRD) Non-Af 97, BUN/Creatinine Ratio 45.3 H, Glucose 246 H, Calcium 8.9, Total Bilirubin 0.40, AST 10 L, ALT 22, Alkaline Phosphatase 103, Total Protein 6.3 L, Albumin 2.5 L, Globulin 3.8, Albumin/Globulin Ratio 0.7 L Micro: Microbiology 09/03/21 17:46 Sputum, Induced/Lukens Gram Stain - Final 09/03/21 17:46 Sputum, Induced/Lukens Respiratory Culture - Preliminary Alpha Hemolytic Streptococcus 09/03/21 14:09 Mucosa - Nasopharyngeal Respiratory Panel (PCR) - Final 09/03/21 14:31 Nasal Secretion SARS-CoV-2 Antigen (Rapid) - Final Physical Exam Const General Appearance: intubated, patient mechanically ventilated and other Sedated HEENT normocephalic and head/scalp atraumatic HEENT Narrative: Improved to normalization of swelling of the tongue and lips Eyes conjunctivae normal and no scleral icterus Neck supple General: trachea midline Chest inspection of chest normal Chest: symmetrical chest wall rise; Negative for crepitus Resp Effort and Inspection: symmetric chest movement and mechanically ventilated Auscultation: rhonchi throughout Cardio regular rhythm, S1 normal heart sound, S2 normal heart sound and peripheral pulses 2+ throughout Rate: tachycardic GI normal to inspection, nondistended, normoactive bowel sounds, soft to palpation and non-tender Extremity normal capillary refill and no clubbing, cyanosis or edema General Extremity: no tenderness to palpation of joints or extremities Skin General Skin Exam: no breakdown and turgor normal Lesions: no lesions Rashes: no rashes Neuro moves all extremities Sensorium / Orientation: sedated on vent RASS: -2 Psych Appearance: intubated Charges/Coding Procedures Hospitalists Procedures: [id number] [facility] 1st Hr
[2021-09-05] MEDS: Chlorhexidine 15 ML PO ×2 (08:27→22:02)
[2021-09-05] MEDS: CHLORHEXIDINE GLUC 2% CLOTH 1 EACH TOWELETTE TOPICAL (08:31)
[2021-09-05] MEDS: Enoxaparin 40 MG/0.4 ML Syringe SC (08:32)
[2021-09-05] MEDS: Furosemide 40 MG/4 ML Vial IV ×2 (08:34→16:55)
[2021-09-05] MEDS: Famotidine 20 MG Tablet 40 MG GT ×2 (08:35→22:03)
[2021-09-05] MEDS: Clopidogrel Bisulfate 75 MG Tablet GT (08:36)
[2021-09-05 11:16] LABS: Bedside Glucose 279 mg/dL (70-110)
[2021-09-05] MEDS: Propofol 10MG/Ml 1,000 MG/100 ML Bottle 12.9 MG CONT INF ×2 (13:46→22:14)
--- NOTE | 2021-09-05 16:23 | PN.HOSP_ITS ---
Subjective Subjective Patient was seen and examined today, she remains on the ventilator at this time under sedation. I talked briefly with pulmonary medicine about her care Objective Data Objective Data Vital Signs: Vital Signs Temp Pulse Resp BP Pulse Ox 96.8 F L 63 14 130/82 H 93 09/05/21 12:00 09/05/21 15:30 09/05/21 15:30 09/05/21 12:28 09/05/21 14:46 Oxygen Flow Rate (L/min) 5 Oxygen Delivery Method Mechanical Ventilator Weight: 108.2 kg Body Mass Index (BMI) 43.7 Intake & Output: Intake and Output for Last 24 Hours 09/03/21 09/04/21 09/05/21 23:59 23:59 23:59 Intake Total 190.88 / 220.98 1093.59 / 1131.19 1081.41 / 1081.41 Output Total 1000 / 1600 1650 / 1650 1999 / 1999 Balance -809.12 / -1379.02 -556.41 / -518.81 -918.59 / -918.59 Lab / Micro Data Result Diagrams: 09/05/21 05:30 09/05/21 05:30 Labs: Laboratory Results - last 24 hr 09/04/21 17:02: POC Glucose 221 H 09/05/21 00:24: POC Glucose 223 H 09/05/21 05:09: POC Glucose 248 H 09/05/21 05:30: WBC 14.0 H, RBC 5.12, Hgb 15.1 H, Hct 48.6 H, MCV 94.9, MCH 29.5, MCHC 31.1 L, RDW Std Deviation 47.7 H, RDW Coeff of Marcy 13.6, Plt Count 190, MPV 11.3, Immature Gran % (Auto) 0.400, Neut % (Auto) 88.9 H, Lymph % (Auto) 5.5 L, [place] % (Auto) 4.9, Eos % (Auto) 0.1, Baso % (Auto) 0.2, Absolute Neuts (auto) 12.4 H, Absolute Lymphs (auto) 0.77 L, Nucleated RBC % 0, Differential Comment SCANNED, Platelet Estimate ADEQUATE 09/05/21 05:30: Sodium 139, Potassium 4.6, Chloride 92 L, Carbon Dioxide 43.0 H, Anion Gap 4 L, BUN 31 H, Creatinine 0.68, Estim Creat Clear Calc 79.15, Est GFR (MDRD) Af Amer 117, Est GFR (MDRD) Non-Af 97, BUN/Creatinine Ratio 45.3 H, G lucose 246 H, Calcium 8.9, Total Bilirubin 0.40, AST 10 L, ALT 22, Alkaline Phosphatase 103, Total Protein 6.3 L, Albumin 2.5 L, Globulin 3.8, Albumin/Globulin Ratio 0.7 L 09/05/21 11:11: POC Glucose 279 H Micro: Microbiology 09/03/21 17:46 Sputum, Induced/Lukens Gram Stain - Final 09/03/21 17:46 Sputum, Induced/Lukens Respiratory Culture - Preliminary Alpha Hemolytic Streptococcus 09/03/21 14:09 Mucosa - Nasopharyngeal Respiratory Panel (PCR) - Final 09/03/21 14:31 Nasal Secretion SARS-CoV-2 Antigen (Rapid) - Final Physical Exam Const Constitutional Narrative: Patient is sedated and on the ventilator General Appearance: cooperative, well kempt and well developed Orientation / Consciousness: awake, oriented to person, oriented to place and oriented to time HEENT normocephalic and head/scalp atraumatic Head and Scalp: normocephalic Eyes PERRL and conjunctivae normal Neck nuchal rigidity, supple, no JVD, thyroid normal and no carotid bruits General: trachea midline Resp normal respiratory effort, no retractions, no use of accessory muscles and clear to auscultation bilaterally Auscultation: Negative for rales, rhonchi or wheezes Cardio regular rate, regular rhythm, S1 normal heart sound, S2 normal heart sound, no murmurs, no rub and no gallops GI normal to inspection, nondistended, normoactive bowel sounds, soft to palpation, non-tender and non-distended Extremity no clubbing, cyanosis or edema Skin no rashes or lesions noted General Skin Exam: no breakdown Neuro CN's II-XII intact bilaterally Neuro Narrative: Patient is sedated and on the ventilator at this time Psych thought process normal Psych Narrative: Patient is sedated and on the ventilator at this time Assessment & Plan Assessment/Plan (1) Acute respiratory failure with hypoxia: PLAN: 1. Acute on chronic combined respiratory failure-etiology unclear at this point, patient remains on the ventilator at this time, pulmonary medicine is participating in her care #2 elevated troponin-not secondary to myocardial infarction #3 type 2 diabetes-continue to monitor blood sugars #4 morbid obesity #5 chronic obstructive pulmonary disease #6 obstructive sleep apnea Charges/Coding Visit Charges Inpatient E&M: 59875 Subs Hosp L2
[2021-09-05 17:01] LABS: Bedside Glucose 221 mg/dL (70-110)
--- NOTE | 2021-09-05 19:39 | NURSING ---
Shift handoff completed with demetria huerta. Pts propofol was resumed @10mcg/kg/min by demetria huerta prior to this rn assuming care of pt. Pts rass currently at -1.
[2021-09-05] MEDS: Vital High Protein 1,000 ML 60 ML GT (19:55)
[2021-09-05] MEDS: 0.9% Saline Lock 10 ML Syringe IV (22:02)
[2021-09-05] MEDS: Dexmedetomidine 1,000 mcg in 0.9% NS 240 mL 40.6 MCG CONT INF (22:37)
[2021-09-05 23:40] LABS: Bedside Glucose 245 mg/dL (70-110)
[2021-09-06] VITALS (35 sets, daily range): BP systolic 135–164; BP diastolic 74–102; PULSE 58–97; RESP 12–16; TEMP 36.2–37.2; O2SAT 91–100
[2021-09-06] MEDS: Ipratropium/Albuterol Sulfate 3 ML AMPUL.NEB INHALATION ×6 (02:19→23:00)
[2021-09-06] MEDS: Dexmedetomidine 1,000 mcg in 0.9% NS 240 mL 40.6 MCG CONT INF (04:10)
[2021-09-06] MEDS: Propofol 10MG/Ml 1,000 MG/100 ML Bottle 9.7 MG CONT INF ×2 (04:14→14:30)
[2021-09-06 05:05] LABS: Absolute Lymphocyte Count 0.71 X10^3/uL (0.83-4.51); Absolute Neutrophil Count 12.6 X10^3/uL (2.0-7.7); Basophil# 0.01 X10^3/uL; Basophil% 0.1 % (0-1); Hematocrit 53.5 % (37-47); Hemoglobin 16.5 g/dL (12.0-15.0); Lymphocyte # 0.71 X10^3/ul (0.83-4.51); Lymphocyte % 4.9 % (19-41); Mean Corp Hgb Conc 30.8 g/dL (32-36); Mean Corpuscular Hgb 29.8 pg (27.0-32.0); Mean Corpuscular Volume 96.6 fL (81-99); Mean Platelet Vol. 11.2 fl (6.2-12.0); Monocyte% 8.3 % (0-10); NRBC Flagged by Analyzer 0 % (0-5); Neutrophil # 12.56 X10^3/uL (2.7-7.7); Neutrophil % 86.4 % (47-70); Platelet Count 217 K/mm3 (150-450); RBC Distribution Width CV 13.5 % (11.6-14.6); RBC Distribution Width SD 48.5 fl (35.1-43.9); Red Blood Count 5.54 M/mm3 (4.2-5.4); White Blood Count 14.5 K/mm3 (4.4-11.0)
[2021-09-06 05:24] LABS: ALB/GLOB Ratio 0.6 RATIO (0.9-2.4); AST(SGOT) 11 U/L (15-37); Alanine Aminotransfer ALT/SGPT 19 U/L (13-56); Albumin, Serum 2.3 g/dL (3.2-5.0); Alkaline Phosphatase 95 U/L (45-117); Anion Gap 4 (5-15); BUN 28 mg/dL (7-18); BUN/Creat Ratio 51.3 RATIO (10-20); Calcium,Total 8.7 mg/dL (8.5-10.1); Chloride 95 mmol/L (98-107); Creatinine, Serum 0.55 mg/dL (0.55-1.02); EST Glomerular Filtration Rate 126 mL/min (>60); Est Glom Filt Rate - Afr Amer 152 mL/min (>60); Estimated Creatinine Clearance 97.86 ml/min; Globulin 3.9 g/dL (2.2-4.2); Glucose 200 mg/dL (74-106); Potassium 4.2 mmol/L (3.5-5.1); Protein, Total 6.2 g/dL (6.4-8.2); Sodium Level 140 mmol/L (136-145)
[2021-09-06] MEDS: Insulin Lispro 100 UNIT/ML INSULN.PEN SC ×3 (05:34→18:02)
[2021-09-06] MEDS: 0.9% Saline Lock 10 ML Syringe IV ×4 (05:35→21:01)
[2021-09-06 05:45] LABS: Bedside Glucose 199 mg/dL (70-110)
[2021-09-06] MEDS: TITRATION PARAMETER CHANGE 1 EACH IV (06:01)
[2021-09-06] MEDS: Potassium Chloride Oral Soln 20 MEQ/15 ML UDC 40 MEQ PO (06:39)
--- NOTE | 2021-09-06 07:33 | RAD_ITS ---
STUDY: X-RAY CHEST REASON FOR EXAM: Female, 50 years old. Aspiration TECHNIQUE: Frontal view of the chest COMPARISON: None. FINDINGS: There is an endotracheal tube noted with its tip approximately 4 cm above the marcela. There is an enteric tube noted with its tip in the stomach. There is mild patchy airspace opacities in the lower lung crawford which are improved when compared with the prior exam. There are no pleural effusions. There is no pneumothorax. The heart is normal in size. The visualized osseous structures are within normal limits. RAD/Chest 1 View (Portable) IMPRESSION: Mild patchy airspace opacities in the lower lung crawford which are improved when compared with the prior exam. Electronically Signed: Kwan Sahu MD at 8:44 EDT Tel , Service support ,
[2021-09-06] MEDS: Chlorhexidine 15 ML PO ×2 (08:00→21:00)
--- NOTE | 2021-09-06 08:03 | PN.CC_ITS ---
Assessment & Plan Assessment/Plan (1) CARSON (obstructive sleep apnea): (2) COPD exacerbation: (3) Morbid obesity with BMI of 40.0-44.9, adult: (4) Elevated troponin: (5) Diabetes mellitus, type II: QUALIFIERS: Diabetes mellitus complication status: with other specified complication Diabetes mellitus nursing home insulin use: with nursing home use Qualified Code(s): E11.69 - Type 2 diabetes mellitus with other specified complication; Z79.4 - snf (current) use of insulin PLAN: RECOMMENDATIONS: 1. Continue current vent settings. Wean FiO2 as tolerated 2. Spontaneous breathing and awakening trial per protocol. Check leak prior to extubation 3. Transition to Precedex for sedation to facilitate spontaneous breathing trial 4. Diuresis and blood pressure control. Agree with bronchodilators and steroids 5. Advanced OG and recheck chest x-ray 6. Start empiric antibiotics for possible aspiration IMPRESSIONS: 1. Acute on chronic combined respiratory failure Unclear etiology. Patient did have a chest x-ray suggestive of pulmonary edema and elevated blood pressure while on BiPAP. Patient failed BiPAP trial and was subsequently intubated. Patient's oxygenation is slightly worse compared to previous. Some concern that the increase secretions were secondary to tube feeds coming back into the mouth. Cannot exclude an element of aspiration, so antibiotics have been initiated. Previous culture showed only respiratory carrie. Repeat culture has been ordered. Chest x-ray shows slight increase in infiltrate in the left lower lobe, but improvement in the right. Clinical suspicion for an element of congestive heart failure, so diuretics will be continued. 2. Elevated troponin Clinical suspicion for elevation in troponin secondary to supply demand mismatch in the setting of hypoxia. Continue with telemetry, but doubt extensive cardiac investigation would be indicated. 3. Diabetes mellitus with insulin requirements Patient with significantly elevated glucose levels. This is likely in part secondary to steroid therapy. Will continue Lantus. Okay to continue tube feeds from my perspective. 4. Morbid obesity/COPD/CARSON/questionable compliance/GERD/repeated hospitalizations Complicates care, management, recovery and prognosis. Okay to continue with baseline medications. TIME: 34 minutes critical care time spent addressing patient's acute on chronic respiratory failure, elevated troponin, diabetes mellitus, review of all data and collaboration with care team (6:45 AM to 7:45 AM) Subjective Subjective Patient did okay yesterday. Overnight, patient reportedly had significant increase in oral and endotracheal secretions. Nursing was so concerned the patient did not have a spontaneous breathing trial. Patient became significantly agitated when propofol was discontinued, so patient is currently on fentanyl, propofol and Precedex. Objective Data Objective Data Vital Signs: Vital Signs Temp Pulse Resp BP Pulse Ox 36.8 C 63 12 163/102 H 95 09/06/21 05:00 09/06/21 07:36 09/06/21 07:36 09/06/21 07:00 09/06/21 07:36 Oxygen Flow Rate (L/min) 5 Oxygen Delivery Method Mechanical Ventilator Weight: 107.4 kg Body Mass Index (BMI) 43.7 Intake & Output: Intake and Output for Last 24 Hours 09/04/21 09/05/21 09/06/21 23:59 23:59 23:59 Intake Total 1093.59 / 1131.19 2785.26 / 2842.76 635.50 / 635.50 Output Total 1650 / 1650 3550 / 3550 400 / 400 Balance -556.41 / -518.81 -764.74 / -707.24 235.50 / 235.50 Lab / Micro Data Result Diagrams: 09/06/21 04:55 09/06/21 04:55 Labs: Laboratory Results - last 24 hr 09/05/21 11:11: POC Glucose 279 H 09/05/21 16:50: POC Glucose 221 H 09/05/21 23:38: POC Glucose 245 H 09/06/21 04:55: WBC 14.5 H, RBC 5.54 H, Hgb 16.5 H, Hct 53.5 H, MCV 96.6, MCH 29.8, MCHC 30.8 L, RDW Std Deviation 48.5 H, RDW Coeff of Marcy 13.5, Plt Count 217, MPV 11.2, Immature Gran % (Auto) 0.300, Neut % (Auto) 86.4 H, Lymph % ( Auto) 4.9 L, [place] % (Auto) 8.3, Eos % (Auto) 0.0, Baso % (Auto) 0.1, Absolute Neuts (auto) 12.6 H, Absolute Lymphs (auto) 0.71 L, Nucleated RBC % 0 09/06/21 04:55: Sodium 140, Potassium 4.2, Chloride 95 L, Carbon Dioxide 41.0 H, Anion Gap 4 L, BUN 28 H, Creatinine 0.55, Estim Creat Clear Calc 97.86, Est GFR (MDRD) Af Amer 152, Est GFR (MDRD) Non-Af 126, BUN/Creatinine Ratio 51.3 H, Glucose 200 H, Calcium 8.7, Total Bilirubin 0.40, AST 11 L, ALT 19, Alkaline Phosphatase 95, Total Protein 6.2 L, Albumin 2.3 L, Globulin 3.9, Albumin/Globulin Ratio 0.6 L 09/06/21 05:32: POC Glucose 199 H Micro: Microbiology 09/03/21 17:46 Sputum, Induced/Lukens Gram Stain - Final 09/03/21 17:46 Sputum, Induced/Lukens Respiratory Culture - Final Mixed normal respiratory carrie. No Streptococcus pneumoniae, beta-hemolytic Streptococcus or Staphylococcus aureus isolated. 09/03/21 14:09 Mucosa - Nasopharyngeal Respiratory Panel (PCR) - Final 09/03/21 14:31 Nasal Secretion SARS-CoV-2 Antigen (Rapid) - Final Physical Exam Const General Appearance: intubated, patient mechanically ventilated and other Sedated HEENT normocephalic and head/scalp atraumatic HEENT Narrative: Improved to normalization of swelling of the tongue and lips. OG appears to be significantly out Eyes conjunctivae normal and no scleral icterus Neck supple General: trachea midline Chest inspection of chest normal Chest: symmetrical chest wall rise; Negative for crepitus Resp Effort and Inspection: symmetric chest movement and mechanically ventilated Auscultation: rhonchi left lower Cardio regular rate, regular rhythm, S1 normal heart sound, S2 normal heart sound and peripheral pulses 2+ throughout GI normal to inspection, nondistended, normoactive bowel sounds, soft to palpation and non-tender Extremity normal capillary refill and no clubbing, cyanosis or edema General Extremity: no tenderness to palpation of joints or extremities Skin General Skin Exam: no breakdown and turgor normal Lesions: no lesions Rashes: no rashes Neuro moves all extremities Sensorium / Orientation: sedated on vent RASS: -2 Psych Appearance: intubated Charges/Coding Procedures Hospitalists Procedures: [id number] Critial Care 1st Hr
[2021-09-06] MEDS: Dexmedetomidine 1,000 mcg in 0.9% NS 240 mL 40.3 MCG CONT INF ×3 (10:51→22:49)
[2021-09-06] MEDS: Furosemide 40 MG/4 ML Vial IV ×2 (10:57→18:02)
[2021-09-06] MEDS: Enoxaparin 40 MG/0.4 ML Syringe SC (10:58)
[2021-09-06] MEDS: Famotidine 20 MG Tablet 40 MG GT ×2 (10:58→21:00)
[2021-09-06] MEDS: CHLORHEXIDINE GLUC 2% CLOTH 1 EACH TOWELETTE TOPICAL (10:58)
[2021-09-06] MEDS: Clopidogrel Bisulfate 75 MG Tablet GT (10:59)
[2021-09-06] MEDS: Polyethylene Glycol 3350 17 GM PACKET PO (15:37)
[2021-09-06 16:21] LABS: Bedside Glucose 208 mg/dL (70-110)
--- NOTE | 2021-09-06 16:47 | PCM.PN.HOSP ---
Subjective Subjective Patient was seen and examined today in the ICU, she remains on the ventilator under sedation at this time. Objective Data Objective Data Vital Signs: Vital Signs Temp Pulse Resp BP Pulse Ox 98.2 F 62 12 163/102 H 97 09/06/21 05:00 09/06/21 15:15 09/06/21 15:15 09/06/21 07:00 09/06/21 15:15 Oxygen Flow Rate (L/min) 5 Oxygen Delivery Method Mechanical Ventilator Weight: 107.4 kg Body Mass Index (BMI) 43.7 Intake & Output: Intake and Output for Last 24 Hours 09/04/21 09/05/21 09/06/21 23:59 23:59 23:59 Intake Total 1093.59 / 1131.19 2785.26 / 2842.76 1289.62 / 1289.62 Output Total 1650 / 1650 3550 / 3550 2550 / 2550 Balance -556.41 / -518.81 -764.74 / -707.24 -1260.38 / -1260.38 Lab / Micro Data Result Diagrams: 09/06/21 04:55 09/06/21 04:55 Labs: Laboratory Results - last 24 hr 09/05/21 16:50: POC Glucose 221 H 09/05/21 23:38: POC Glucose 245 H 09/06/21 04:55: WBC 14.5 H, RBC 5.54 H, Hgb 16.5 H, Hct 53.5 H, MCV 96.6, MCH 29.8, MCHC 30.8 L, RDW Std Deviation 48.5 H, RDW Coeff of Marcy 13.5, Plt Count 217, MPV 11.2, Immature Gran % (Auto) 0.300, Neut % (Auto) 86.4 H, Lymph % (Auto) 4.9 L, [place] % (Auto) 8.3, Eos % (Auto) 0.0, Baso % (Auto) 0.1, Absolute Neuts (auto) 12.6 H, Absolute Lymphs (auto) 0.71 L, Nucleated RBC % 0 09/06/21 04:55: Sodium 140, Potassium 4.2, Chloride 95 L, Carbon Dioxide 41.0 H, Anion Gap 4 L, BUN 28 H, Creatinine 0.55, Estim Creat Clear Calc 97.86, Est GFR (MDRD) Af Amer 152, Est GFR (MDRD) Non-Af 126, BUN/Creatinine Ratio 51.3 H, Glucose 200 H, Calcium 8.7, Total Bilirubin 0.40, AST 11 L, ALT 19, Alkaline Phosphatase 95, Total Protein 6.2 L, Albumin 2.3 L, Globulin 3.9, Albumin/Globulin Ratio 0.6 L 09/06/21 05:32: POC Glucose 199 H 09/06/21 12:41: POC Glucose 208 H Micro: Microbiology 09/06/21 07:31 Sputum, Induced/Lukens Gram Stain - Final 09/03/21 17:46 Sputum, Induced/Lukens Gram Stain - Final 09/03/21 17:46 Sputum, Induced/Lukens Respiratory Culture - Final Mixed normal respiratory carrie. No Streptococcus pneumoniae, beta-hemolytic Streptococcus or Staphylococcus aureus isolated. 09/03/21 14:09 Mucosa - Nasopharyngeal Respiratory Panel (PCR) - Final 09/03/21 14:31 Nasal Secretion SARS-CoV-2 Antigen (Rapid) - Final Radiography Diagnostic Testing: Radiology Impression Chest X-Ray 09/06/21 07:33 IMPRESSION: Mild patchy airspace opacities in the lower lung crawford which are improved when compared with the prior exam. Electronically Signed: Kwan Sahu MD at 8:44 EDT Tel , Service support , Physical Exam Narrative Const Constitutional Narrative: Patient is sedated and on the ventilator General Appearance: well developed Orientation / Consciousness: Patient is sedated and on the ventilator HEENT normocephalic and head/scalp atraumatic Head and Scalp: normocephalic Eyes PERRL and conjunctivae normal Neck nuchal rigidity, supple, no JVD, thyroid normal and no carotid bruits General: trachea midline Resp normal respiratory effort, no retractions, no use of accessory muscles and clear to auscultation bilaterally Auscultation: Negative for rales, rhonchi or wheezes Cardio regular rate, regular rhythm, S1 normal heart sound, S2 normal heart sound, no murmurs, no rub and no gallops GI normal to inspection, nondistended, normoactive bowel sounds, soft to palpation, non-tender and non-distended Extremity no clubbing, cyanosis or edema Skin no rashes or lesions noted General Skin Exam: no breakdown Neuro CN's II-XII intact bilaterally Neuro Narrative: Patient is sedated and on the ventilator at this time Psych Psych Narrative: Patient is sedated and on the ventilator at this time Assessment & Plan Assessment/Plan (1) Acute respiratory failure with hypoxia: PLAN: 1. Acute on chronic combined respiratory failure-etiology unclear at this point, patient remains on the ventilator at this time, pulmonary medicine is participating in her care, chest x-ray today showed mild patchy airspace opacities in the lower lung crawford which were improved compared with the prior exam. #2 elevated troponin-not secondary to myocardial infarction #3 type 2 diabetes-continue to monitor blood sugars #4 morbid obesity #5 chronic obstructive pulmonary disease #6 obstructive sleep apnea Charges/Coding Visit Charges Inpatient E&M: 51192 Subs Hosp L2
[2021-09-06 18:10] LABS: Bedside Glucose 229 mg/dL (70-110)
[2021-09-06] MEDS: Senna Tablet 2 TABLET GT (21:00)
[2021-09-07] VITALS (36 sets, daily range): BP systolic 119–164; BP diastolic 60–93; PULSE 50–77; RESP 12–19; TEMP 36.6–37.3; O2SAT 88–100
[2021-09-07] MEDS: Insulin Lispro 100 UNIT/ML INSULN.PEN SC ×4 (00:05→17:06)
[2021-09-07 00:46] LABS: Bedside Glucose 290 mg/dL (70-110)
[2021-09-07] MEDS: Propofol 10MG/Ml 1,000 MG/100 ML Bottle 9.7 MG CONT INF ×2 (01:00→10:45)
[2021-09-07] MEDS: Vital High Protein 1,000 ML 60 ML GT ×2 (01:43→14:19)
[2021-09-07] MEDS: Ipratropium/Albuterol Sulfate 3 ML AMPUL.NEB INHALATION ×6 (03:51→22:50)
[2021-09-07] MEDS: Dexmedetomidine 1,000 mcg in 0.9% NS 240 mL 40.3 MCG CONT INF ×4 (05:02→23:18)
[2021-09-07 06:14] LABS: Absolute Neutrophil Count 9.1 X10^3/uL (2.0-7.7); Basophil# 0.01 X10^3/uL; Basophil% 0.1 % (0-1); Hematocrit 52.4 % (37-47); Hemoglobin 15.9 g/dL (12.0-15.0); Lymphocyte % 6.1 % (19-41); Mean Corp Hgb Conc 30.3 g/dL (32-36); Mean Corpuscular Hgb 29.5 pg (27.0-32.0); Mean Corpuscular Volume 97.2 fL (81-99); Mean Platelet Vol. 11.2 fl (6.2-12.0); Monocyte# 1.58 X10^3/uL; Monocyte% 13.8 % (0-10); NRBC Flagged by Analyzer 0 % (0-5); Neutrophil % 79.6 % (47-70); POSITIVE DIFFERENTIAL YES; Platelet Count 189 K/mm3 (150-450); RBC Distribution Width CV 13.4 % (11.6-14.6); RBC Distribution Width SD 47.5 fl (35.1-43.9); Red Blood Count 5.39 M/mm3 (4.2-5.4); White Blood Count 11.4 K/mm3 (4.4-11.0)
[2021-09-07 06:16] LABS: Differential Indicated SCAN CRITERIA MET
[2021-09-07 06:30] LABS: Bedside Glucose 293 mg/dL (70-110)
[2021-09-07 06:31] LABS: Anion Gap 3 (5-15); BUN 33 mg/dL (7-18); BUN/Creat Ratio 49.8 RATIO (10-20); Calcium,Total 8.9 mg/dL (8.5-10.1); Chloride 95 mmol/L (98-107); Creatinine, Serum 0.66 mg/dL (0.55-1.02); EST Glomerular Filtration Rate 100 mL/min (>60); Est Glom Filt Rate - Afr Amer 121 mL/min (>60); Estimated Creatinine Clearance 81.55 ml/min; Glucose 333 mg/dL (74-106); Magnesium 2.4 mg/dL (1.6-2.6); Sodium Level 139 mmol/L (136-145)
[2021-09-07 06:49] LABS: Differential Comment SCANNED
--- NOTE | 2021-09-07 07:29 | PN.CC_ITS ---
Assessment & Plan Assessment/Plan (1) CARSON (obstructive sleep apnea): (2) COPD exacerbation: (3) Morbid obesity with BMI of 40.0-44.9, adult: (4) Elevated troponin: (5) Diabetes mellitus, type II: QUALIFIERS: Diabetes mellitus complication status: with other specified complication Diabetes mellitus senior living insulin use: with senior living use Qualified Code(s): E11.69 - Type 2 diabetes mellitus with other specified complication; Z79.4 - prison (current) use of insulin PLAN: RECOMMENDATIONS: 1. Continue current vent settings. Wean FiO2 as tolerated 2. Spontaneous breathing and awakening trial per protocol. Check leak prior to extubation 3. Add Seroquel therapy 4. Diuresis and blood pressure control. Agree with bronchodilators and steroids 5. Aggressive pulmonary toileting 6. Continue empiric antibiotics for possible aspiration IMPRESSIONS: 1. Acute on chronic combined respiratory failure Unclear etiology. Patient did have a chest x-ray suggestive of pulmonary edema and elevated blood pressure while on BiPAP. Patient failed BiPAP trial and was subsequently intubated. Patient's oxygenation is slightly worse compared to previous. Some concern that the increase secretions were secondary to tube feeds coming back into the mouth. Clinical suspicion for an aspiration event on 09/06/2021. Clinical suspicion for an element of congestive heart failure initially, so diuretics will be continued as long as tolerated. 2. Elevated troponin Clinical suspicion for elevation in troponin secondary to supply demand mismatch in the setting of hypoxia. Continue with telemetry, but doubt extensive cardiac investigation would be indicated. 3. Diabetes mellitus with insulin requirements Patient with significantly elevated glucose levels. This is likely in part secondary to steroid therapy. Will continue Lantus. Okay to continue tube feeds from my perspective. 4. Morbid obesity/COPD/CARSON/questionable compliance/GERD/repeated hospitalizations Complicates care, management, recovery and prognosis. Okay to continue with baseline medications. TIME: 35 minutes critical care time spent addressing patient's acute on chronic respiratory failure, elevated troponin, diabetes mellitus, review of all data and collaboration with care team (6 AM to 7 AM) Subjective Subjective Patient did okay overnight. Patient was not able to tolerate a spontaneous awakening trial this morning and continues to be on propofol, Precedex and fentanyl for vent synchrony. Oral secretions are significantly improved after change in OG tube. Nursing has reported right lower lung field rhonchi thro ughout the evening. Objective Data Objective Data Vital Signs: Vital Signs Temp Pulse Resp BP Pulse Ox 37.1 C 67 12 160/93 H 100 09/07/21 04:00 09/07/21 07:00 09/07/21 07:00 09/07/21 07:00 09/07/21 07:00 Oxygen Flow Rate (L/min) 5 Oxygen Delivery Method Mechanical Ventilator Weight: 108.1 kg Body Mass Index (BMI) 43.7 Intake & Output: Intake and Output for Last 24 Hours 09/05/21 09/06/21 09/07/21 23:59 23:59 23:59 Intake Total 2785.26 / 2842.76 2591.63 / 2661.63 1544.61 / 1544.61 Output Total 3550 / 3550 4200 / 4350 675 / 675 Balance -764.74 / -707.24 -1608.37 / -1688.37 869.61 / 869.61 Lab / Micro Data Result Diagrams: 09/07/21 06:10 09/07/21 06:10 Labs: Laboratory Results - last 24 hr 09/06/21 12:41: POC Glucose 208 H 09/06/21 18:01: POC Glucose 229 H 09/07/21 00:04: POC Glucose 290 H 09/07/21 06:10: WBC 11.4 H, RBC 5.39, Hgb 15.9 H, Hct 52.4 H, MCV 97.2, MCH 29 .5, MCHC 30.3 L, RDW Std Deviation 47.5 H, RDW Coeff of Marcy 13.4, Plt Count 189, MPV 11.2, Immature Gran % (Auto) 0.400, Neut % (Auto) 79.6 H, Lymph % (Auto) 6.1 L, [place] % (Auto) 13.8 H, Eos % (Auto) 0.0, Baso % (Auto) 0.1, Absolute Neuts (auto) 9.1 H, Absolute Lymphs (auto) 0.70 L, Nucleated RBC % 0, Differential Comment SCANNED, Diff Path Review March09/07/21 06:10: Sodium 139, Potassium 4.0, Chloride 95 L, Carbon Dioxide 41.0 H, Anion Gap 3 L, BUN 33 H, Creatinine 0.66, Estim Creat Clear Calc 81.55, Est GFR (MDRD) Af Amer 121, Est GFR (MDRD) Non-Af 100, BUN/Creatinine Ratio 49.8 H, Glucose 333 H, Calcium 8.9, Phosphorus 3.0, Magnesium 2.4 09/07/21 06:18: POC Glucose 293 H Micro: Microbiology 09/06/21 07:31 Sputum, Induced/Lukens Gram Stain - Final 09/03/21 17:46 Sputum, Induced/Lukens Gram Stain - Final 09/03/21 17:46 Sputum, Induced/Lukens Respiratory Culture - Final Mixed normal respiratory carrie. No Streptococcus pneumoniae, beta-hemolytic Streptococcus or Staphylococcus aureus isolated. 09/03/21 14:09 Mucosa - Nasopharyngeal Respiratory Panel (PCR) - Final 09/03/21 14:31 Nasal Secretion SARS-CoV-2 Antigen (Rapid) - Final Radiography Diagnostic Testing: Radiology Impression Chest X-Ray 09/06/21 07:33 IMPRESSION: Mild patchy airspace opacities in the lower lung crawford which are improved when compared with the prior exam. Electronically Signed: Kwan Sahu MD at 8:44 EDT Tel , Service support , Physical Exam Const General Appearance: intubated, patient mechanically ventilated and other Sedated HEENT normocephalic and head/scalp atraumatic HEENT Narrative: Improved to normalization of swelling of the tongue and lips. OG appears to be significantly out Eyes conjunctivae normal and no scleral icterus Neck supple General: trachea midline Chest inspection of chest normal Chest: symmetrical chest wall rise; Negative for crepitus Resp Effort and Inspection: symmetric chest movement and mechanically ventilated Auscultation: rhonchi left lower and right lower Cardio regular rate, regular rhythm, S1 normal heart sound, S2 normal heart sound and peripheral pulses 2+ throughout GI normal to inspection, nondistended, normoactive bowel sounds, soft to palpation and non-tender Extremity normal capillary refill and no clubbing, cyanosis or edema General Extremity: no tenderness to palpation of joints or extremities Skin General Skin Exam: no breakdown and turgor normal Lesions: no lesions Rashes: no rashes Neuro moves all extremities Sensorium / Orientation: sedated on vent RASS: -2 Psych Appearance: intubated Charges/Coding Procedures Hospitalists Procedures: [id number] Critial Care 1st Hr
[2021-09-07] MEDS: Chlorhexidine 15 ML PO ×2 (10:00→22:34)
[2021-09-07] MEDS: Famotidine 20 MG Tablet 40 MG GT ×2 (10:01→22:35)
[2021-09-07] MEDS: Clopidogrel Bisulfate 75 MG Tablet GT (10:01)
[2021-09-07] MEDS: Furosemide 40 MG/4 ML Vial IV ×2 (10:01→17:07)
[2021-09-07] MEDS: Enoxaparin 40 MG/0.4 ML Syringe SC (10:01)
[2021-09-07] MEDS: Polyethylene Glycol 3350 17 GM PACKET PO (10:01)
[2021-09-07] MEDS: QUEtiapine 100 MG Tablet GT ×2 (10:02→22:35)
[2021-09-07] MEDS: Senna Tablet 2 TABLET GT ×2 (10:02→22:35)
[2021-09-07 12:30] LABS: Bedside Glucose 229 mg/dL (70-110)
[2021-09-07] MEDS: CHLORHEXIDINE GLUC 2% CLOTH 1 EACH TOWELETTE TOPICAL (12:38)
--- NOTE | 2021-09-07 13:31 | PCM.PN.HOSP ---
Subjective Subjective Patient was seen Therese today, she remains on ventilator support. I talked briefly with pulmonary medicine about her care. Objective Data Objective Data Vital Signs: Vital Signs Temp Pulse Resp BP Pulse Ox 98.5 F 64 12 123/62 H 91 09/07/21 09:00 09/07/21 11:00 09/07/21 11:00 09/07/21 11:00 09/07/21 11:00 Oxygen Flow Rate (L/min) 5 Oxygen Delivery Method Mechanical Ventilator Weight: 108.1 kg Body Mass Index (BMI) 43.7 Intake & Output: Intake and Output for Last 24 Hours 09/05/21 09/06/21 09/07/21 23:59 23:59 23:59 Intake Total 2785.26 / 2842.76 2591.63 / 2661.63 1890.63 / 1890.63 Output Total 3550 / 3550 4200 / 4350 1125 / 1125 Balance -764.74 / -707.24 -1608.37 / -1688.37 765.63 / 765.63 Lab / Micro Data Result Diagrams: 09/07/21 06:10 09/07/21 06:10 Labs: Laboratory Results - last 24 hr 09/06/21 12:41: POC Glucose 208 H 09/06/21 18:01: POC Glucose 229 H 09/07/21 00:04: POC Glucose 290 H 09/07/21 06:10: WBC 11.4 H, RBC 5.39, Hgb 15.9 H, Hct 52.4 H, MCV 97.2, MCH 29.5, MCHC 30.3 L, RDW Std Deviation 47.5 H, RDW Coeff of Marcy 13.4, Plt Count 189, MPV 11.2, Immature Gran % (Auto) 0.400, Neut % (Auto) 79.6 H, Lymph % (Auto) 6.1 L, [place] % (Auto) 13.8 H, Eos % (Auto) 0.0, Baso % (Auto) 0.1, Absolute Neuts (auto) 9.1 H, Absolute Lymphs (auto) 0.70 L, Nucleated RBC % 0, Differential Comment SCANNED, Diff Path Review March09/07/21 06:10: Sodium 139, Potassium 4.0, Chloride 95 L, Carbon Dioxide 41.0 H, Anion Gap 3 L, BUN 33 H, Creatinine 0.66, Estim Creat Clear Calc 81.55, Est GFR (MDRD) Af Amer 121, Est GFR (MDRD) Non-Af 100, BUN/Creatinine Ratio 49.8 H, Glucose 333 H, Calcium 8.9, Phosphorus 3.0, Magnesium 2.4 09/07/21 06:18: POC Glucose 293 H 09/07/21 12:01: POC Glucose 229 H Micro: Microbiology 09/06/21 07:31 Sputum, Induced/Lukens Gram Stain - Final 09/06/21 07:31 Sputum, Induced/Lukens Respiratory Culture - Preliminary Staphylococcus aureus 09/03/21 17:46 Sputum, Induced/Lukens Gram Stain - Final 09/03/21 17:46 Sputum, Induced/Lukens Respiratory Culture - Final Mixed normal respiratory carrie. No Streptococcus pneumoniae, beta-hemolytic Streptococcus or Staphylococcus aureus isolated. 09/03/21 14:09 Mucosa - Nasopharyngeal Respiratory Panel (PCR) - Final 09/03/21 14:31 Nasal Secretion SARS-CoV-2 Antigen (Rapid) - Final Physical Exam Narrative Const Constitutional Narrative: Patient is sedated and on the ventilator General Appearance: well developed Orientation / Consciousness: Patient is sedated and on the ventilator HEENT normocephalic and head/scalp atraumatic Head and Scalp: normocephalic Eyes PERRL and conjunctivae normal Neck nuchal rigidity, supple, no JVD, thyroid normal and no carotid bruits General: trachea midline Resp normal respiratory effort, no retractions, no use of accessory muscles and clear to auscultation bilaterally Auscultation: Negative for rales, rhonchi or wheezes Cardio regular rate, regular rhythm, S1 normal heart sound, S2 normal heart sound, no murmurs, no rub and no gallops GI normal to inspection, nondistended, normoactive bowel sounds, soft to palpation, non-tender and non-distended Extremity no clubbing, cyanosis or edema Skin no rashes or lesions noted General Skin Exam: no breakdown Neuro CN's II-XII intact bilaterally Neuro Narrative: Patient is sedated and on the ventilator at this time Psych Psych Narrative: Patient is sedated and on the ventilator at this time Assessment & Plan Assessment/Plan (1) Acute respiratory failure with hypoxia: PLAN: 1. Acute on chronic combined respiratory failure-etiology unclear at this point, continue care per pulmonary medicine #2 elevated troponin-not secondary to myocardial infarction #3 type 2 diabetes-continue to monitor blood sugars #4 morbid obesity #5 chronic obstructive pulmonary disease #6 obstructive sleep apnea Charges/Coding Visit Charges Inpatient E&M: 50889 Subs Hosp L2
--- NOTE | 2021-09-07 14:21 | PCS.PANDOC ---
PANDEMIC DOCUMENTATION INITIATED: Date: 07/09/2021 Time: 190
[2021-09-07] MEDS: Propofol 10MG/Ml 1,000 MG/100 ML Bottle 6.4 MG CONT INF (15:35)
[2021-09-07 17:01] LABS: Bedside Glucose 171 mg/dL (70-110)
[2021-09-07] MEDS: Albuterol 2.5 MG/3 ML VIAL.NEB. INHALATION (17:03)
[2021-09-07] MEDS: Magnesium Citrate 300 ML 150 ML GT (20:10)
[2021-09-07] MEDS: 0.9% Saline Lock 10 ML Syringe IV (22:36)
[2021-09-07] MEDS: Propofol 10MG/Ml 1,000 MG/100 ML Bottle 12.9 MG CONT INF (23:00)
[2021-09-08] VITALS (37 sets, daily range): BP systolic 100–160; BP diastolic 54–97; PULSE 66–100; RESP 12–25; TEMP 36.6–37.2; O2SAT 84–99
[2021-09-08] MEDS: Insulin Lispro 100 UNIT/ML INSULN.PEN SC ×5 (00:39→21:34)
[2021-09-08 00:51] LABS: Bedside Glucose 279 mg/dL (70-110)
[2021-09-08] MEDS: Ipratropium/Albuterol Sulfate 3 ML AMPUL.NEB INHALATION ×6 (02:10→22:44)
[2021-09-08 04:35] LABS: Absolute Lymphocyte Count 0.59 X10^3/uL (0.83-4.51); Basophil# 0.01 X10^3/uL; Basophil% 0.1 % (0-1); Hematocrit 50.4 % (37-47); Lymphocyte # 0.59 X10^3/ul (0.83-4.51); Lymphocyte % 5.6 % (19-41); Mean Corp Hgb Conc 29.8 g/dL (32-36); Mean Corpuscular Hgb 29.1 pg (27.0-32.0); Mean Corpuscular Volume 97.9 fL (81-99); Mean Platelet Vol. 11.6 fl (6.2-12.0); Monocyte# 0.92 X10^3/uL; Monocyte% 8.7 % (0-10); NRBC Flagged by Analyzer 0 % (0-5); Neutrophil % 85.3 % (47-70); POSITIVE DIFFERENTIAL YES; Platelet Count 189 K/mm3 (150-450); RBC Distribution Width CV 13.2 % (11.6-14.6); RBC Distribution Width SD 48.2 fl (35.1-43.9); Red Blood Count 5.15 M/mm3 (4.2-5.4); White Blood Count 10.6 K/mm3 (4.4-11.0)
[2021-09-08 04:37] LABS: Differential Indicated SCAN CRITERIA MET
[2021-09-08 04:57] LABS: Anion Gap 3 (5-15); BUN 28 mg/dL (7-18); BUN/Creat Ratio 44.6 RATIO (10-20); Calcium,Total 7.8 mg/dL (8.5-10.1); Chloride 100 mmol/L (98-107); Creatinine, Serum 0.63 mg/dL (0.55-1.02); EST Glomerular Filtration Rate 107 mL/min (>60); Est Glom Filt Rate - Afr Amer 129 mL/min (>60); Estimated Creatinine Clearance 85.43 ml/min; Glucose 289 mg/dL (74-106); Sodium Level 143 mmol/L (136-145)
[2021-09-08 05:03] LABS: Differential Comment SCANNED
[2021-09-08 05:25] LABS: Bedside Glucose 317 mg/dL (70-110)
[2021-09-08] MEDS: Dexmedetomidine 1,000 mcg in 0.9% NS 240 mL 40.3 MCG CONT INF (05:31)
--- NOTE | 2021-09-08 07:02 | PCM.PN.INT ---
Assessment & Plan Assessment/Plan (1) CARSON (obstructive sleep apnea): (2) COPD exacerbation: (3) Morbid obesity with BMI of 40.0-44.9, adult: (4) Elevated troponin: (5) Diabetes mellitus, type II: QUALIFIERS: Diabetes mellitus complication status: with other specified complication Diabetes mellitus long-term insulin use: with long-term use Qualified Code(s): E11.69 - Type 2 diabetes mellitus with other specified complication; Z79.4 - [facility] (current) use of insulin PLAN: RECOMMENDATIONS: 1. Extubate to nonrebreather. Wean FiO2 as tolerated 2. Monitor in the intensive care unit. Cannot exclude need for repeat intubation 3. Continue Seroquel therapy following bedside swallow eval 4. Diuresis and blood pressure control. Agree with bronchodilators and steroids 5. Possibly discontinue antibiotics after 48 hours if patient remains afebrile and respiratory status is stable 6. Cannot exclude the need for BiPAP rescue IMPRESSIONS: 1. Acute on chronic combined respiratory failure Unclear etiology. Patient did have a chest x-ray suggestive of pulmonary edema and elevated blood pressure while on BiPAP. Patient failed BiPAP trial and was subsequently intubated. Patient's oxygenation is slightly worse compared to previous. Some concern that the increase secretions were secondary to tube feeds coming back into the mouth. Clinical suspicion for an aspiration event on 09/06/2021. Patient extubated on 09/08/2021 secondary to agitation event. Will monitor response. 2. Elevated troponin Clinical suspicion for elevation in troponin secondary to supply demand mismatch in the setting of hypoxia. Continue with telemetry, but doubt extensive cardiac investigation would be indicated. 3. Diabetes mellitus with insulin requirements Patient with significantly elevated glucose levels. This is likely in part secondary to steroid therapy. Will continue Lantus. We will have to monitor after discontinuation of tube feeds. 4. Morbid obesity/COPD/CARSON/questionable compliance/GERD/repeated hospitalizations Complicates care, management, recovery and prognosis. Okay to continue with baseline medications. TIME: 32 minutes critical care time spent addressing patient's acute on chronic respiratory failure, elevated troponin, diabetes mellitus, review of all data and collaboration with care team (6 AM to 7 AM) Subjective Subjective Patient did okay overnight. Minimal secretions were noted. However, at approximately 6:45 AM patient was attempted on a spontaneous awakening trial. The patient became agitated and pulled at the endotracheal tube. Endotracheal tube had gone from 24 cm to 19 cm and patient was very anxious. Decision was made to remove endotracheal tube and monitor response. Objective Data Objective Data Vital Signs: Vital Signs Temp Pulse Resp BP Pulse Ox 36.8 C 81 15 138/69 H 91 09/08/21 04:00 09/08/21 05:35 09/08/21 05:35 09/08/21 05:00 09/08/21 05:35 Oxygen Flow Rate (L/min) 5 Oxygen Delivery Method Mechanical Ventilator Weight: 104.7 kg Body Mass Index (BMI) 43.7 Intake & Output: Intake and Output for Last 24 Hours 09/06/21 09/07/21 09/08/21 23:59 23:59 23:59 Intake Total 2591.63 / 2661.63 4322.07 / 4763.51 978.95 / 978.95 Output Total 4200 / 4350 3925 / 3925 550 / 550 Balance -1608.37 / -1688.37 397.07 / 838.51 428.95 / 428.95 Lab / Micro Data Result Diagrams: 09/08/21 04:10 09/08/21 04:10 Labs: Laboratory Results - last 24 hr 09/07/21 12:01: POC Glucose 229 H 09/07/21 16:55: POC Glucose 171 H 09/08/21 00:38: POC Glucose 279 H 09/08/21 04:10: WBC 10.6, RBC 5.15, Hgb 15.0, Hct 50.4 H, MCV 97.9, MCH 29.1, MCHC 29.8 L, RDW Std Deviation 48.2 H, RDW Coeff of Marcy 13.2, Plt Count 189, MPV 11.6, Immature Gran % (Auto) 0.300, Neut % (Auto) 85.3 H, Lymph % (Auto) 5.6 L, [place] % (Auto) 8.7, Eos % (Auto) 0.0, Baso % (Auto) 0.1, Absolute Neuts (auto) 9.0 H, Absolute Lymphs (auto) 0.59 L, Nucleated RBC % 0, Differential Comment SCANNED 09/08/21 04:10: Sodium 143, Potassium 4.0, Chloride 100, Carbon Dioxide 40.0 H, Anion Gap 3 L, BUN 28 H, Creatinine 0.63, Estim Creat Clear Calc 85.43, Est GFR (MDRD) Af Amer 129, Est GFR (MDRD) Non-Af 107, BUN/Creatinine Ratio 44.6 H, Glucose 289 H, Calcium 7.8 L 09/08/21 05:03: POC Glucose 317 H Micro: Microbiology 09/06/21 07:31 Sputum, Induced/Lukens Gram Stain - Final 09/06/21 07:31 Sputum, Induced/Lukens Respiratory Culture - Preliminary Staphylococcus aureus 09/03/21 17:46 Sputum, Induced/Lukens Gram Stain - Final 09/03/21 17:46 Sputum, Induced/Lukens Respiratory Culture - Final Mixed normal respiratory carrie. No Streptococcus pneumoniae, beta-hemolytic Streptococcus or Staphylococcus aureus isolated. 09/03/21 14:09 Mucosa - Nasopharyngeal Respiratory Panel (PCR) - Final 09/03/21 14:31 Nasal Secretion SARS-CoV-2 Antigen (Rapid) - Final Physical Exam Const General Appearance: intubated, patient mechanically ventilated and other Sedated HEENT normocephalic and head/scalp atraumatic HEENT Narrative: Improved to normalization of swelling of the tongue and lips. Eyes conjunctivae normal and no scleral icterus Neck supple General: trachea midline Chest inspection of chest normal Chest: symmetrical chest wall rise; Negative for crepitus Resp Effort and Inspection: symmetric chest movement and mechanically ventilated Auscultation: rhonchi left lower and right lower Cardio regular rate, regular rhythm, S1 normal heart sound, S2 normal heart sound and peripheral pulses 2+ throughout GI normal to inspection, nondistended, normoactive bowel sounds, soft to palpation and non-tender Extremity normal capillary refill and no clubbing, cyanosis or edema General Extremity: no tenderness to palpation of joints or extremities Skin General Skin Exam: no breakdown and turgor normal Lesions: no lesions Rashes: no rashes Neuro moves all extremities Sensorium / Orientation: sedated on vent RASS: +3 (During spontaneous awakening) Psych Appearance: intubated Charges/Coding Procedures Hospitalists Procedures: 20715 Critial Care 1st Hr
[2021-09-08] MEDS: TITRATION PARAMETER CHANGE 1 EACH IV (07:55)
[2021-09-08] MEDS: CHLORHEXIDINE GLUC 2% CLOTH 1 EACH TOWELETTE TOPICAL (10:09)
[2021-09-08] MEDS: Enoxaparin 40 MG/0.4 ML Syringe SC (10:09)
[2021-09-08] MEDS: Polyethylene Glycol 3350 17 GM PACKET PO (10:10)
[2021-09-08] MEDS: 0.9% Saline Lock 10 ML Syringe IV ×3 (10:10→14:28)
[2021-09-08] MEDS: Famotidine 20 MG Tablet 40 MG GT (10:10)
[2021-09-08] MEDS: Senna Tablet 2 TABLET GT ×2 (10:11→21:34)
[2021-09-08] MEDS: QUEtiapine 100 MG Tablet GT (10:11)
[2021-09-08] MEDS: Clopidogrel Bisulfate 75 MG Tablet GT (10:11)
[2021-09-08 12:51] LABS: Bedside Glucose 217 mg/dL (70-110)
[2021-09-08] MEDS: Amox/Clavulanate 500 MG Tablet PO (16:45)
[2021-09-08 16:50] LABS: Bedside Glucose 242 mg/dL (70-110)
--- NOTE | 2021-09-08 17:24 | PCM.PN.HOSP ---
Subjective Subjective Patient was seen and examined today, she was extubated earlier today and appears to be comfortable at this time. I have reviewed her medications and made medication adjustments today. Patient does not complain of any shortness of breath or chest discomfort, she does have hoarseness however. Objective Data Objective Data Vital Signs: Vital Signs Temp Pulse Resp BP Pulse Ox 98.9 F 80 22 H 127/62 H 99 09/08/21 12:00 09/08/21 15:20 09/08/21 15:20 09/08/21 13:00 09/08/21 15:19 Oxygen Flow Rate (L/min) 10 Oxygen Delivery Method Nasal Cannula Weight: 104.7 kg Body Mass Index (BMI) 43.7 Intake & Output: Intake and Output for Last 24 Hours 09/06/21 09/07/21 09/08/21 23:59 23:59 23:59 Intake Total 2591.63 / 2661.63 4322.07 / 4763.51 1616.75 / 1616.75 Output Total 4200 / 4350 3925 / 3925 1150 / 1150 Balance -1608.37 / -1688.37 397.07 / 838.51 466.75 / 466.75 Lab / Micro Data Result Diagrams: 09/08/21 04:10 09/08/21 04:10 Labs: Laboratory Results - last 24 hr 09/08/21 00:38: POC Glucose 279 H 09/08/21 04:10: WBC 10.6, RBC 5.15, Hgb 15.0, Hct 50.4 H, MCV 97.9, MCH 29.1, MCHC 29.8 L, RDW Std Deviation 48.2 H, RDW Coeff of Marcy 13.2, Plt Count 189, MPV 11.6, Immature Gran % (Auto) 0.300, Neut % (Auto) 85.3 H, Lymph % (Auto) 5.6 L, [place] % (Auto) 8.7, Eos % (Auto) 0.0, Baso % (Auto) 0.1, Absolute Neuts (auto) 9.0 H, Absolute Lymphs (auto) 0.59 L, Nucleated RBC % 0, Differential Comment SCANNED 09/08/21 04:10: Sodium 143, Potassium 4.0, Chloride 100, Carbon Dioxide 40.0 H, Anion Gap 3 L, BUN 28 H, Creatinine 0.63, Estim Creat Clear Calc 85.43, Est GFR (MDRD) Af Amer 129, Est GFR (MDRD) Non-Af 107, BUN/Creatinine Ratio 44.6 H, Glucose 289 H, Calcium 7.8 L 09/08/21 05:03: POC Glucose 317 H 09/08/21 12:14: POC Glucose 217 H 09/08/21 16:35: POC Glucose 242 H Micro: Microbiology 09/06/21 07:31 Sputum, Induced/Lukens Gram Stain - Final 09/06/21 07:31 Sputum, Induced/Lukens Respiratory Culture - Final Staphylococcus aureus 09/03/21 17:46 Sputum, Induced/Lukens Gram Stain - Final 09/03/21 17:46 Sputum, Induced/Lukens Respiratory Culture - Final Mixed normal respiratory carrie. No Streptococcus pneumoniae, beta-hemolytic Streptococcus or Staphylococcus aureus isolated. 09/03/21 14:09 Mucosa - Nasopharyngeal Respiratory Panel (PCR) - Final 09/03/21 14:31 Nasal Secretion SARS-CoV-2 Antigen (Rapid) - Final Physical Exam Const alert, oriented x3 and no apparent distress Constitutional Narrative: Patient has hoarseness General Appearance: cooperative, well kempt and well developed Orientation / Consciousness: awake, oriented to person, oriented to place and oriented to time HEENT normocephalic and moist oral mucous membranes Head and Scalp: normocephalic Eyes PERRL, EOMs intact bilaterally and conjunctivae normal Neck nuchal rigidity, supple, no JVD, thyroid normal and no carotid bruits General: trachea midline Resp normal respiratory effort, no retractions, no use of accessory muscles and clear to auscultation bilaterally Auscultation: Negative for rales, rhonchi or wheezes Cardio regular rate, regular rhythm, no murmurs, no rub and no gallops GI normal to inspection, nondistended, normoactive bowel sounds, soft to palpation, non-tender and non-distended Extremity no clubbing, cyanosis or edema Skin no rashes or lesions noted General Skin Exam: no breakdown Neuro oriented x3, CN's II-XII intact bilaterally, no focal motor deficits and no sensory deficits noted Sensorium / Orientation: awake and alert Speech: speech normal Psych thought process normal and affect normal Assessment & Plan Assessment/Plan (1) Acute respiratory failure with hypoxia: PLAN: 1. Acute on chronic combined respiratory failure-etiology unclear at this point, continue care per pulmonary medicine, patient currently is on nasal cannula oxygen at 10 L #2 elevated troponin-not secondary to myocardial infarction #3 type 2 diabetes-continue to monitor blood sugars #4 morbid obesity #5 chronic obstructive pulmonary disease #6 obstructive sleep apnea #7 essential hypertension Charges/Coding Visit Charges Inpatient E&M: 38049 Subs Hosp L2
[2021-09-08] MEDS: Acetaminophen 325 MG Tablet 650 MG PO (17:44)
[2021-09-08] MEDS: QUEtiapine 25 MG Tablet 75 MG PO (21:34)
[2021-09-08 21:56] LABS: Bedside Glucose 217 mg/dL (70-110)
[2021-09-09] VITALS (23 sets, daily range): BP systolic 139–173; BP diastolic 74–90; PULSE 77–99; RESP 16–26; TEMP 36.4–37; O2SAT 92–98
[2021-09-09] MEDS: Acetaminophen 325 MG Tablet 650 MG PO ×2 (00:08→16:20)
[2021-09-09] MEDS: Ipratropium/Albuterol Sulfate 3 ML AMPUL.NEB INHALATION ×6 (02:20→22:36)
[2021-09-09] MEDS: Ondansetron 4 MG/2 ML Vial IV (05:05)
[2021-09-09 05:14] LABS: Absolute Lymphocyte Count 1.08 X10^3/uL (0.83-4.51); Absolute Neutrophil Count 11.5 X10^3/uL (2.0-7.7); Basophil# 0.02 X10^3/uL; Basophil% 0.1 % (0-1); Eosinophil# 0.01 X10^3/uL; Eosinophils% 0.1 % (0-5); Hematocrit 50.1 % (37-47); Hemoglobin 14.8 g/dL (12.0-15.0); Lymphocyte # 1.08 X10^3/ul (0.83-4.51); Lymphocyte % 7.8 % (19-41); Mean Corp Hgb Conc 29.5 g/dL (32-36); Mean Corpuscular Hgb 29.4 pg (27.0-32.0); Mean Corpuscular Volume 99.4 fL (81-99); Mean Platelet Vol. 11.5 fl (6.2-12.0); Monocyte# 1.22 X10^3/uL; Monocyte% 8.8 % (0-10); NRBC Flagged by Analyzer 0 % (0-5); Neutrophil # 11.46 X10^3/uL (2.7-7.7); Neutrophil % 82.7 % (47-70); Platelet Count 220 K/mm3 (150-450); RBC Distribution Width CV 13.2 % (11.6-14.6); RBC Distribution Width SD 48.5 fl (35.1-43.9); Red Blood Count 5.04 M/mm3 (4.2-5.4); White Blood Count 13.9 K/mm3 (4.4-11.0)
--- NOTE | 2021-09-09 06:46 | PCM.PN.INT ---
Assessment & Plan Assessment/Plan (1) CARSON (obstructive sleep apnea): (2) COPD exacerbation: (3) Morbid obesity with BMI of 40.0-44.9, adult: (4) Elevated troponin: (5) Diabetes mellitus, type II: QUALIFIERS: Diabetes mellitus complication status: with other specified complication Diabetes mellitus senior care insulin use: with senior care use Qualified Code(s): E11.69 - Type 2 diabetes mellitus with other specified complication; Z79.4 - [facility] (current) use of insulin PLAN: RECOMMENDATIONS: 1. Walking oximetry prior to discharge. Wean FiO2 as tolerated 2. We will discontinue Seroquel therapy 3. Wean steroid therapy. Increase to baseline Norvasc 4. Stop date placed on p.o. antibiotics 5. Hemodynamically stable at baseline oxygen. Okay to transfer from the intensive care unit. IMPRESSIONS: 1. Acute on chronic combined respiratory failure Unclear etiology. Patient did have a chest x-ray suggestive of pulmonary edema and elevated blood pressure while on BiPAP. Patient failed BiPAP trial and was subsequently intubated. Patient's oxygenation is slightly worse compared to previous. Some concern that the increase secretions were secondary to tube feeds coming back into the mouth. Clinical suspicion for an aspiration event on 09/06/2021. Patient extubated on 09/08/2021 secondary to agitation event. Patient appears to be at her baseline at this time. Stop date placed on antibiotics. Wean steroids. Possibly transition to prednisone tomorrow. 2. Elevated troponin Clinical suspicion for elevation in troponin secondary to supply demand mismatch in the setting of hypoxia. Continue with telemetry, but doubt extensive cardiac investigation would be indicated. 3. Diabetes mellitus with insulin requirements Patient with significantly elevated glucose levels. This is likely in part secondary to steroid therapy. Will continue Lantus, but will need to monitor given patient transitioning to p.o. diet. 4. Morbid obesity/COPD/CARSON/questionable compliance/GERD/repeated hospitalizations Complicates care, management, recovery and prognosis. Okay to continue with baseline medications. Subjective Subjective Patient successfully extubated yesterday. No overnight events have been reported. Patient continues to report body aching that is no different than baseline. Patient has had an intermittently productive cough. No fevers or hemodynamic instability has been reported overnight. Objective Data Objective Data Vital Signs: Vital Signs Temp Pulse Resp BP Pulse Ox 37.0 C 88 22 H 169/89 H 96 09/09/21 05:00 09/09/21 06:00 09/09/21 06:00 09/09/21 06:00 09/09/21 06:00 Oxygen Flow Rate (L/min) 8 Oxygen Delivery Method Nasal Cannula Weight: 104.6 kg Body Mass Index (BMI) 43.7 Intake & Output: Intake and Output for Last 24 Hours 09/07/21 09/08/21 09/09/21 23:59 23:59 23:59 Intake Total 4322.07 / 4763.51 2056.75 / 2056.75 Output Total 3925 / 3925 1450 / 1450 250 / 250 Balance 397.07 / 838.51 606.75 / 606.75 -250 / -250 Lab / Micro Data Result Diagrams: 09/09/21 05:00 09/08/21 04:10 Labs: Laboratory Results - last 24 hr 09/08/21 12:14: POC Glucose 217 H 09/08/21 16:35: POC Glucose 242 H 09/08/21 21:30: POC Glucose 217 H 09/09/21 05:00: WBC 13.9 H, RBC 5.04, Hgb 14.8, Hct 50.1 H, MCV 99.4 H, MCH 29.4, MCHC 29.5 L, RDW Std Deviation 48.5 H, RDW Coeff of Marcy 13.2, Plt Count 220, MPV 11.5, Immature Gran % (Auto) 0.500, Neut % (Auto) 82.7 H, Lymph % (Auto) 7.8 L, [place] % (Auto) 8.8, Eos % (Auto) 0.1, Baso % (Auto) 0.1, Absolute Neuts (auto) 11.5 H, Absolute Lymphs (auto) 1.08, Nucleated RBC % 0 Micro: Microbiology 09/06/21 07:31 Sputum, Induced/Lukens Gram Stain - Final 09/06/21 07:31 Sputum, Induced/Lukens Respiratory Culture - Final Staphylococcus aureus 09/03/21 17:46 Sputum, Induced/Lukens Gram Stain - Final 09/03/21 17:46 Sputum, Induced/Lukens Respiratory Culture - Final Mixed normal respiratory carrie. No Streptococcus pneumoniae, beta-hemolytic Streptococcus or Staphylococcus aureus isolated. 09/03/21 14:09 Mucosa - Nasopharyngeal Respiratory Panel (PCR) - Final 09/03/21 14:31 Nasal Secretion SARS-CoV-2 Antigen (Rapid) - Final Physical Exam Const alert, oriented x3 and no apparent distress General Appearance: cooperative and well developed Orientation / Consciousness: awake, oriented to person, oriented to place and oriented to time HEENT normocephalic and moist oral mucous membranes Head and Scalp: normocephalic Eyes PERRL, EOMs intact bilaterally and conjunctivae normal Neck nuchal rigidity, supple, no JVD, thyroid normal and no carotid bruits General: trachea midline Chest inspection of chest normal Chest: symmetrical chest wall rise; Negative for crepitus Resp normal respiratory effort, no retractions, no use of accessory muscles and clear to auscultation bilaterally Auscultation: Negative for rales, rhonchi or wheezes Cardio regular rate, regular rhythm, no murmurs, no rub and no gallops GI normal to inspection, nondistended, normoactive bowel sounds, soft to palpation, non-tender and non-distended Extremity no clubbing, cyanosis or edema Skin no rashes or lesions noted General Skin Exam: no breakdown Neuro oriented x3, CN's II-XII intact bilaterally, no focal motor deficits and no sensory deficits noted Sensorium / Orientation: awake and alert Speech: speech normal Psych thought process normal and affect normal Charges/Coding Visit Charges Inpatient E&M: 16075 Subs Hosp L3
[2021-09-09 07:36] LABS: Anion Gap 5 (5-15); BUN 24 mg/dL (7-18); Calcium,Total 9.5 mg/dL (8.5-10.1); Chloride 94 mmol/L (98-107); Creatinine, Serum 0.55 mg/dL (0.55-1.02); EST Glomerular Filtration Rate 126 mL/min (>60); Est Glom Filt Rate - Afr Amer 152 mL/min (>60); Estimated Creatinine Clearance 97.86 ml/min; Glucose 130 mg/dL (74-106); Potassium 3.6 mmol/L (3.5-5.1); Sodium Level 141 mmol/L (136-145)
[2021-09-09] MEDS: Amox/Clavulanate 500 MG Tablet PO ×2 (08:22→16:21)
[2021-09-09 10:10] LABS: Bedside Glucose 162 mg/dL (70-110)
[2021-09-09 10:10] LABS: Bedside Glucose 103 mg/dL (70-110)
[2021-09-09] MEDS: Pantoprazole Sodium 20 MG Tablet PO (10:44)
[2021-09-09] MEDS: Enoxaparin 40 MG/0.4 ML Syringe SC (10:44)
[2021-09-09] MEDS: Furosemide 20 MG Tablet PO (10:44)
[2021-09-09] MEDS: amLODIPine 10 MG Tablet PO (10:44)
[2021-09-09] MEDS: Atorvastatin Calcium 10 MG Tablet PO (10:45)
[2021-09-09] MEDS: Clopidogrel Bisulfate 75 MG Tablet PO (10:45)
[2021-09-09] MEDS: Lisinopril 20 MG Tablet PO (10:45)
[2021-09-09] MEDS: Insulin Lispro 100 UNIT/ML INSULN.PEN SC ×2 (12:03→16:21)
[2021-09-09 12:10] LABS: Bedside Glucose 194 mg/dL (70-110)
[2021-09-09 16:30] LABS: Bedside Glucose 167 mg/dL (70-110)
--- NOTE | 2021-09-09 16:47 | PCM.PN.HOSP ---
Subjective Subjective Patient was seen and examined today in ICU, she appears stable on 8 L via nasal cannula supplemental oxygen, she does not complain of any shortness of breath or chest discomfort at this time. Objective Data Objective Data Vital Signs: Vital Signs Temp Pulse Resp BP Pulse Ox 97.7 F L 87 16 149/84 H 97 09/09/21 16:16 09/09/21 16:16 09/09/21 16:16 09/09/21 16:16 09/09/21 16:16 Oxygen Flow Rate (L/min) 8 Oxygen Delivery Method Nasal Cannula Weight: 104.6 kg Body Mass Index (BMI) 43.7 Intake & Output: Intake and Output for Last 24 Hours 09/07/21 09/08/21 09/09/21 23:59 23:59 23:59 Intake Total 4322.07 / 4763.51 2056.75 / 2056.75 240 / 240 Output Total 3925 / 3925 1450 / 1450 250 / 250 Balance 397.07 / 838.51 606.75 / 606.75 -10 / -10 Lab / Micro Data Result Diagrams: 09/09/21 05:00 09/09/21 05:00 Labs: Laboratory Results - last 24 hr 09/08/21 16:35: POC Glucose 242 H 09/08/21 21:30: POC Glucose 217 H 09/09/21 05:00: WBC 13.9 H, RBC 5.04, Hgb 14.8, Hct 50.1 H, MCV 99.4 H, MCH 29.4, MCHC 29.5 L, RDW Std Deviation 48.5 H, RDW Coeff of Marcy 13.2, Plt Count 220, MPV 11.5, Immature Gran % (Auto) 0.500, Neut % (Auto) 82.7 H, Lymph % (Auto) 7.8 L, [place] % (Auto) 8.8, Eos % (Auto) 0.1, Baso % (Auto) 0.1, Absolute Neuts (auto) 11.5 H, Absolute Lymphs (auto) 1.08, Nucleated RBC % 0 09/09/21 05:00: Sodium 141, Potassium 3.6, Chloride 94 L, Carbon Dioxide 42.0 H, Anion Gap 5, BUN 24 H, Creatinine 0.55, Estim Creat Clear Calc 97.86, Est GFR (MDRD) Af Amer 152, Est GFR (MDRD) Non-Af 126, BUN/Creatinine Ratio 44.0 H, Glucose 130 H, Calcium 9.5 09/09/21 06:57: POC Glucose 103 09/09/21 10:00: POC Glucose 162 H 09/09/21 12:02: POC Glucose 194 H 09/09/21 16:19: POC Glucose 167 H Micro: Microbiology 09/06/21 07:31 Sputum, Induced/Lukens Gram Stain - Final 09/06/21 07:31 Sputum, Induced/Lukens Respiratory Culture - Final Staphylococcus aureus 09/03/21 17:46 Sputum, Induced/Lukens Gram Stain - Final 09/03/21 17:46 Sputum, Induced/Lukens Respiratory Culture - Final Mixed normal respiratory carrie. No Streptococcus pneumoniae, beta-hemolytic Streptococcus or Staphylococcus aureus isolated. 09/03/21 14:09 Mucosa - Nasopharyngeal Respiratory Panel (PCR) - Final 09/03/21 14:31 Nasal Secretion SARS-CoV-2 Antigen (Rapid) - Final Physical Exam Narrative alert, oriented x3 and no apparent distress Constitutional Narrative: Patient has hoarseness General Appearance: cooperative, well kempt and well developed Orientation / Consciousness: awake, oriented to person, oriented to place and oriented to time HEENT normocephalic and moist oral mucous membranes Head and Scalp: normocephalic Eyes PERRL, EOMs intact bilaterally and conjunctivae normal Neck nuchal rigidity, supple, no JVD, thyroid normal and no carotid bruits General: trachea midline Resp normal respiratory effort, no retractions, no use of accessory muscles and clear to auscultation bilaterally Auscultation: Scattered expiratory rhonchi are noted bilaterally Cardio regular rate, regular rhythm, no murmurs, no rub and no gallops GI normal to inspection, nondistended, normoactive bowel sounds, soft to palpation, non-tender and non-distended Extremity no clubbing, cyanosis or edema Skin no rashes or lesions noted General Skin Exam: no breakdown Neuro oriented x3, CN's II-XII intact bilaterally, no focal motor deficits and no sensory deficits noted Sensorium / Orientation: awake and alert Speech: speech normal Psych thought process normal and affect normal Assessment & Plan Assessment/Plan (1) Hypertension: QUALIFIERS: Hypertension type: essential hypertension Qualified Code(s): I10 - Essential (primary) hypertension (2) Acute respiratory failure with hypoxia: PLAN: 1. Acute on chronic combined respiratory failure-etiology unclear at this point, continue care per pulmonary medicine, patient currently is on nasal cannula oxygen at 8 L #2 elevated troponin-not secondary to myocardial infarction #3 type 2 diabetes-continue to monitor blood sugars #4 morbid obesity #5 chronic obstructive pulmonary disease #6 obstructive sleep apnea #7 essential hypertension Charges/Coding Visit Charges Inpatient E&M: 11733 Subs Hosp L2
[2021-09-09] MEDS: 0.9% Saline Lock 10 ML Syringe IV (21:31)
[2021-09-09 21:50] LABS: Bedside Glucose 118 mg/dL (70-110)
[2021-09-10] VITALS (16 sets, daily range): BP systolic 119–142; BP diastolic 65–91; PULSE 73–102; RESP 16–21; TEMP 36.4–37.1; O2SAT 96–100
[2021-09-10] MEDS: Ipratropium/Albuterol Sulfate 3 ML AMPUL.NEB INHALATION ×5 (02:10→22:39)
--- NOTE | 2021-09-10 02:32 | NURSING ---
Patient diaphoretic. Patient refusing to let this RN check her blood sugar. Refused to drink some orange juice. Took a sip of Coke. Everything tastes gross.
[2021-09-10 06:11] LABS: Bedside Glucose 152 mg/dL (70-110)
[2021-09-10] MEDS: Lisinopril 20 MG Tablet PO (09:17)
[2021-09-10] MEDS: Amox/Clavulanate 500 MG Tablet PO ×2 (09:17→16:21)
[2021-09-10] MEDS: amLODIPine 10 MG Tablet PO (09:17)
[2021-09-10] MEDS: Clopidogrel Bisulfate 75 MG Tablet PO (09:17)
[2021-09-10] MEDS: Atorvastatin Calcium 10 MG Tablet PO (09:17)
[2021-09-10] MEDS: Enoxaparin 40 MG/0.4 ML Syringe SC (09:18)
[2021-09-10] MEDS: Pantoprazole Sodium 20 MG Tablet PO (09:18)
[2021-09-10] MEDS: Furosemide 20 MG Tablet PO (09:23)
[2021-09-10 09:27] LABS: Pathologist Review Reviewed
[2021-09-10] MEDS: Acetaminophen 325 MG Tablet 650 MG PO (11:01)
[2021-09-10] MEDS: Insulin Lispro 100 UNIT/ML INSULN.PEN SC ×3 (12:06→21:18)
[2021-09-10 12:26] LABS: Bedside Glucose 219 mg/dL (70-110)
--- NOTE | 2021-09-10 14:36 | NURSING ---
This RN reviewed SN charting
--- NOTE | 2021-09-10 15:00 | PN.HOSP_ITS ---
Subjective Subjective Patient seen and examined. She complained of nausea and shortness of breath. She complained of generally not feeling well. Review of systems is otherwise negative. SHe is on 8L of oxygen. Objective Data Objective Data Vital Signs: Vital Signs Temp Pulse Resp BP Pulse Ox 97.8 F 81 20 H 121/65 H 99 09/10/21 09:15 09/10/21 11:57 09/10/21 11:27 09/10/21 09:15 09/10/21 09:15 Oxygen Flow Rate (L/min) 8 Oxygen Delivery Method Nasal Cannula Weight: 228 lb 6.382 oz Body Mass Index (BMI) 43.7 Intake & Output: Intake and Output for Last 24 Hours 09/08/21 09/09/21 09/10/21 23:59 23:59 23:59 Intake Total 2056.75 / 2056.75 480 / 480 Output Total 1450 / 1450 250 / 250 Balance 606.75 / 606.75 230 / 230 Lab / Micro Data Result Diagrams: 09/09/21 05:00 09/09/21 05:00 Labs: Laboratory Results - last 24 hr 09/07/21 06:10: Diff Path Review Reviewed 09/09/21 16:19: POC Glucose 167 H 09/09/21 21:25: POC Glucose 118 H 09/10/21 06:02: POC Glucose 152 H 09/10/21 12:06: POC Glucose 219 H Micro: Microbiology 09/06/21 07:31 Sputum, Induced/Lukens Gram Stain - Final 09/06/21 07:31 Sputum, Induced/Lukens Respiratory Culture - Final Staphylococcus aureus 09/03/21 17:46 Sputum, Induced/Lukens Gram Stain - Final 09/03/21 17:46 Sputum, Induced/Lukens Respiratory Culture - Final Mixed normal respiratory carrie. No Streptococcus pneumoniae, beta-hemolytic Streptococcus or Staphylococcus aureus isolated. 09/03/21 14:09 Mucosa - Nasopharyngeal Respiratory Panel (PCR) - Final 09/03/21 14:31 Nasal Secretion SARS-CoV-2 Antigen (Rapid) - Final Physical Exam Const alert and oriented x3 Constitutional Narrative: looks uncomfortable. Exam Limitations: no limitations HEENT head/scalp atraumatic and moist oral mucous membranes Head and Scalp: normocephalic Eyes PERRL, EOMs intact bilaterally and conjunctivae normal Neck no lymphadenopathy Resp Resp Narrative: diminished breath sounds bibasally, no wheezes or crackles. On 8L of oxygen. Cardio regular rate, regular rhythm, S1 normal heart sound, S2 normal heart sound and no murmurs GI normal to inspection, nondistended, normoactive bowel sounds, soft to palpation, non-tender and non-distended Extremity normal to inspection, full ROM and no clubbing, cyanosis or edema Peripheral Pulses: Yes pulses 2+ throughout Skin no rashes or lesions noted Neuro oriented x3, CN's II-XII intact bilaterally and moves all extremities Sensorium / Orientation: awake and alert Psych Mood & Affect: depressed Assessment & Plan Assessment/Plan (1) Acute respiratory failure with hypoxia and hypercapnia: PLAN: #Acute hypoxic and hypercapnic respiratory failure * etiology is still not very clear. CXR was initially suggestive of pulmonary edema. Was on BIPAP, but required intubated; now extubated on 09/08/2021 * on IV steroids PO antibiotics. * on 8L of oxygen by nasal canula. She says she wears 7L of oxygen at home. * titrate oxygen to maintain sats >90% * on breathing treatment with bronchodilators. * * #Type 2 diabetes mellitus with peripheral neuropathy: * on lantus 55 units bid. ISS. Accuchecks ACHS. * on gabapentin #COPD: on breathing treatment with bronchodilators. Titrate oxygen to maintain sats >90% #Elevated troponin * thought to be due to hypoxia and increased demand. #CAROSN:on CPAP qhs. #Hypertension:on amlodipine and lisinopril DVT prophylaxis: lovenox Charges/Coding Visit Charges Inpatient E&M: 98773 Subs Hosp L2
[2021-09-10] MEDS: Gabapentin 600 MG Tablet 1200 MG PO ×2 (16:21→21:04)
[2021-09-10 16:51] LABS: Bedside Glucose 420 mg/dL (70-110)
[2021-09-10 22:55] LABS: Bedside Glucose 441 mg/dL (70-110)
[2021-09-11] VITALS (12 sets, daily range): BP systolic 116–145; BP diastolic 67–106; PULSE 76–94; RESP 16–20; TEMP 36.6–36.7; O2SAT 93–98
[2021-09-11] MEDS: Ipratropium/Albuterol Sulfate 3 ML AMPUL.NEB INHALATION ×4 (03:15→15:21)
--- NOTE | 2021-09-11 03:21 | NURSING ---
PT CALLED AND C/O RECTAL BLEEDING, PT HAD A BM AND BLOOD WAS IN THE TOILET. DID NOT WANT ME TO LOOK AT HER RECTUM, LIKELY IT WAS HEMMOROIDAL BLEEDING. PT ALSO C/O HER STOMACH HURTING, HAS BEEN EATING AND SNACKING AND DRINKING DIET SODA SINCE 1 AM.
[2021-09-11] MEDS: Gabapentin 600 MG Tablet 1200 MG PO ×2 (06:44→14:57)
[2021-09-11 06:50] LABS: Bedside Glucose 347 mg/dL (70-110)
[2021-09-11] MEDS: Insulin Lispro 100 UNIT/ML INSULN.PEN SC ×2 (06:50→12:47)
[2021-09-11 06:56] LABS: Absolute Lymphocyte Count 0.85 X10^3/uL (0.83-4.51); Absolute Neutrophil Count 8.4 X10^3/uL (2.0-7.7); Basophil# 0.01 X10^3/uL; Basophil% 0.1 % (0-1); Hematocrit 47.2 % (37-47); Hemoglobin 14.2 g/dL (12.0-15.0); Lymphocyte # 0.85 X10^3/ul (0.83-4.51); Lymphocyte % 8.1 % (19-41); Mean Corp Hgb Conc 30.1 g/dL (32-36); Mean Corpuscular Hgb 29.6 pg (27.0-32.0); Mean Corpuscular Volume 98.5 fL (81-99); Mean Platelet Vol. 12.3 fl (6.2-12.0); Monocyte# 1.25 X10^3/uL; Monocyte% 11.9 % (0-10); NRBC Flagged by Analyzer 0 % (0-5); Neutrophil # 8.38 X10^3/uL (2.7-7.7); Neutrophil % 79.4 % (47-70); Platelet Count 253 K/mm3 (150-450); RBC Distribution Width CV 12.8 % (11.6-14.6); RBC Distribution Width SD 46.7 fl (35.1-43.9); Red Blood Count 4.79 M/mm3 (4.2-5.4); White Blood Count 10.5 K/mm3 (4.4-11.0)
[2021-09-11 07:19] LABS: Anion Gap 5 (5-15); BUN 22 mg/dL (7-18); BUN/Creat Ratio 30.7 RATIO (10-20); Calcium,Total 8.9 mg/dL (8.5-10.1); Chloride 95 mmol/L (98-107); Creatinine, Serum 0.72 mg/dL (0.55-1.02); EST Glomerular Filtration Rate 92 mL/min (>60); Est Glom Filt Rate - Afr Amer 111 mL/min (>60); Estimated Creatinine Clearance 74.75 ml/min; Glucose 358 mg/dL (74-106); Potassium 4.8 mmol/L (3.5-5.1); Sodium Level 137 mmol/L (136-145)
[2021-09-11] MEDS: Amox/Clavulanate 500 MG Tablet PO (09:26)
[2021-09-11] MEDS: amLODIPine 10 MG Tablet PO (09:27)
[2021-09-11] MEDS: Pantoprazole Sodium 20 MG Tablet PO (09:27)
[2021-09-11] MEDS: Enoxaparin 40 MG/0.4 ML Syringe SC (09:27)
[2021-09-11] MEDS: Clopidogrel Bisulfate 75 MG Tablet PO (09:27)
[2021-09-11] MEDS: Furosemide 20 MG Tablet PO (09:28)
[2021-09-11] MEDS: Lisinopril 20 MG Tablet PO (09:28)
[2021-09-11] MEDS: Atorvastatin Calcium 10 MG Tablet PO (09:28)
[2021-09-11] MEDS: Polyethylene Glycol 3350 17 GM PACKET PO (09:36)
[2021-09-11] MEDS: 0.9% Saline Lock 10 ML Syringe IV (09:37)
[2021-09-11 11:40] LABS: Bedside Glucose 244 mg/dL (70-110)
--- NOTE | 2021-09-11 12:01 | CASEMGMT ---
Pt was last sent home on 7L at rest and 8L with exertion and pt is aware that she needs to be wearing oxygen to keep oxygen levels at least 89%, voices understanding. Pt encouraged to get pulse ox for at home, voices understanding. Pt states no need for any further resources at discharge. Pt voices no further questions/concerns/needs. Glenroy ROACH CM
--- NOTE | 2021-09-11 15:02 | PCM.DC.SUM ---
Providers Date of Admission: 09/03/21 Primary Care Physician: Dr. Rita Melton MD Consultations 09/03/21 18:47 Consult: Occupational Health Nurse / Pulmonary Medicine Routine Consulting Provider: Pulmonary Medicine alison Moses Reason for Consult: Vent management EMERGENT Consult: No MD Notified: Yes Date Notified: 09/03/21 Time Notified: 18:02 Method of Notification: Verbal Reason For Visit: RESPIRATORY FAILURE Diagnosis Discharge Diagnosis (1) Acute respiratory failure with hypoxia and hypercapnia: Status: Acute Code(s): J96.01 - Acute respiratory failure with hypoxia; J96.02 - Acute respiratory failure with hypercapnia Medications at Discharge Home Medications Oxygen, Home [Home Oxygen] 4 - 6 lpm NASAL PRN PRN #0 04/06/19 atorvastatin 10 mg PO DAILY 10/14/20 gabapentin 1,200 mg PO TID 10/14/20 albuterol sulfate 2 puff INHALATION Q4H PRN PRN 05/29/21 budesonide-formoterol [Symbicort] 2 puff INHALATION BID 05/29/21 cholecalciferol (vitamin D3) [Vitamin D3] 1,000 unit PO DAILY 05/29/21 ipratropium-albuterol 3 ml INHALATION Q4H 05/29/21 omeprazole 20 mg PO DAILY 05/29/21 Lantus Solostar U-100 Insulin 40 unit SUBCUT BID #15 ml 08/17/21 amlodipine 10 mg PO DAILY #30 tab 08/17/21 clopidogrel 75 mg PO DAILY #30 tab 08/17/21 insulin lispro [Humalog KwikPen Insulin] See Protocol SUBCUT ACHS #15 ml 08/17/21 amoxicillin-pot clavulanate 1 tab PO BID #4 tab 09/11/21 furosemide 20 mg PO DAILY #30 tab 09/11/21 lisinopril 20 mg PO DAILY #30 tab 09/11/21 Hospital Course Operations None Procedures None Summary of Care Provided Minutes Spent on Discharge: 45 Hospital Course: Patient is a 50-year-old female with an extensive past medical history as outlined was admitted through the ER on 09/03/2021 with a complaint of shortness of breath with associated chest pain. On arrival of EMS at her home, she was noted to be hypoxic with pulse ox in the 70s on 4 L of oxygen at home. ABG done also showed hypercapnia. She was rushed to the ER where she was placed on BiPAP but she subsequently deteriorated so she was subsequently intubated. She was admitted and managed for acute on chronic hypoxic and hypercapnic respiratory failure which was thought to be multifactorial likely due to acute COPD exacerbation and possible CHF exacerbation with preserved ejection fraction. Troponins were elevated which was thought to be due to demand ischemia and it subsequently trended down. Covid test done was negative and viral panel done was also negative. CBC and BMP were largely unremarkable and chest x-ray was suggestive of cardiomegaly and CHF. Due to concerns about possible aspiration, patient was started on antibiotics. Patient was started on steroids as well which was subsequently weaned. She was subsequently extubated and transferred out of the ICU on 09/09/2021. Patient shortness of breath improved and she went down to her baseline. It appeared that patient was supposed to be on 6 to 7 L at home but had actually been wearing 4 L of at home. On day of discharge, she was on 4 L of oxygen. She felt much better and was discharged home on 09/11/2021. She was counseled to be adherent to the usage of her oxygen and also to be compliant with her medications. She is follow-up with her primary care doctor and follow-up with pulmonology as well. Patient was seen and examined prior to discharge. She felt better and had no complaints. Review of systems otherwise negative. Labs and vitals reviewed. Home medication reviewed and reconciled. Physical Exam Const alert, oriented x3 and no apparent distress Constitutional Narrative: l General Appearance: cooperative, well kempt, well developed, intubated, patient mechanically ventilated and other Sedated Orientation / Consciousness: awake, oriented to person, oriented to place and oriented to time Exam Limitations: no limitations HEENT normocephalic, head/scalp atraumatic and moist oral mucous membranes Eyes PERRL, EOMs intact bilaterally, conjunctivae normal and no scleral icterus Eyes Narrative: No scleral icterus Neck nuchal rigidity, no lymphadenopathy, supple, no JVD, thyroid normal and no carotid bruits General: trachea midline Resp normal respiratory effort, no retractions, no use of accessory muscles and clear to auscultation bilaterally Resp Narrative: diminished breath sounds bibasally, no wheezes or crackles. On 4L of oxygen. Effort and Inspection: symmetric chest movement and mechanically ventilated Auscultation: Negative for rales, rhonchi or wheezes Cardio regular rate, regular rhythm, S1 normal heart sound, S2 normal heart sound, no murmurs, no rub, no gallops and peripheral pulses 2+ throughout GI normal to inspection, nondistended, normoactive bowel sounds, soft to palpation, non-tender and non-distended Extremity normal to inspection, full ROM, normal capillary refill and no clubbing, cyanosis or edema General Extremity: no tenderness to palpation of joints or extremities Skin no rashes or lesions noted General Skin Exam: no breakdown and turgor normal Lesions: no lesions Rashes: no rashes Neuro oriented x3, CN's II-XII intact bilaterally, moves all extremities, no focal motor deficits and no sensory deficits noted Sensorium / Orientation: awake, alert and sedated on vent RASS: +1 Speech: speech normal Psych thought process normal and affect normal Appearance: intubated Weight / BMI Weight Weight: 228 lb 6.382 oz Body Mass Index (BMI) 43.7 ABG / Lab / Microbiology Data Result Diagrams: 09/11/21 06:25 09/11/21 06:25 Laboratory: Laboratory Results - last 24 hr 09/10/21 16:26: POC Glucose 420 H 09/10/21 21:16: POC Glucose 441 H 09/11/21 06:25: WBC 10.5, RBC 4.79, Hgb 14.2, Hct 47.2 H, MCV 98.5, MCH 29.6, MCHC 30.1 L, RDW Std Deviation 46.7 H, RDW Coeff of Marcy 12.8, Plt Count 253, MPV 12.3 H, Immature Gran % (Auto) 0.500, Neut % (Auto) 79.4 H, Lymph % (Auto) 8.1 L, [place] % (Auto) 11.9 H, Eos % (Auto) 0.0, Baso % (Auto) 0.1, Absolute Neuts (auto) 8.4 H, Absolute Lymphs (auto) 0.85, Nucleated RBC % 0 09/11/21 06:25: Sodium 137, Potassium 4.8, Chloride 95 L, Carbon Dioxide 37.0 H, Anion Gap 5, BUN 22 H, Creatinine 0.72, Estim Creat Clear Calc 74.75, Est GFR (MDRD) Af Amer 111, Est GFR (MDRD) Non-Af 92, BUN/Creatinine Ratio 30.7 H, Glucose 358 H, Calcium 8.9 09/11/21 06:42: POC Glucose 347 H 09/11/21 11:37: POC Glucose 244 H Microbiology: Microbiology 09/06/21 07:31 Sputum, Induced/[place]ukens Gram Stain - Final 09/06/21 07:31 Sputum, Induced/[place]ukens Respiratory Culture - Final Staphylococcus aureus 09/03/21 17:46 Sputum, Induced/[place]ens Gram Stain - Final 09/03/21 17:46 Sputum, Induced/[place]ukens Respiratory Culture - Final Mixed normal respiratory carrie. No Streptococcus pneumoniae, beta-hemolytic Streptococcus or Staphylococcus aureus isolated. 09/03/21 14:09 Mucosa - Nasopharyngeal Respiratory Panel (PCR) - Final 09/03/21 14:31 Nasal Secretion SARS-CoV-2 Antigen (Rapid) - Final D/C Instructions Discharge Diet: Low fat / Low cholesterol Discharge Activity: Return to Normal Activity Weight Bearing Status: Weight bearing as tolerated Call your doctor if you observe: Fever of 101 or Higher, Shortness of breath, Dizziness, Swelling in the ankles, Chest pain and Increased palpitations (irregular heartbeat) Meaningful Use Info Meaningful Use Diagnoses (Choose all that apply): None applicable Discharge Plan Admission Admit Date/Time: 09/03/21 17:56 Primary Reason for Your Visit: acute on chronic hypoxic and hypercapnic respiratory failure Attending Provider: Kathia Magana Primary Care Provider: Rita Melton Consulting Providers: Herminio Dupont ; Adilson Myers ; Danni Bahena [employer] BUILDING EN[employer]GY ENGINEER Instructions Additional Instructions / Restrictions: use oxygen for shortness of breath as needed. Discharge Orders/Prescriptions Prescriptions: New lisinopril 20 mg tablet 20 mg PO DAILY Qty: 30 RF: 1 furosemide 20 mg tablet 20 mg PO DAILY Qty: 30 RF: 1 amoxicillin-pot clavulanate 875-125 mg tablet 1 tab PO BID Qty: 4 RF: 0 Continued Oxygen, Home [Home Oxygen] 4 - 6 lpm NASAL PRN PRN (Reason: breathing) Qty: 0 RF: 0 gabapentin 600 MG tablet 1,200 mg PO TID RF: 0 atorvastatin 10 MG tablet 10 mg PO DAILY RF: 0 ipratropium-albuterol 0.5 mg-3 mg(2.5 mg base)/3 mL solution for nebulization 3 ml inhalation Q4H RF: 0 omeprazole 20 mg capsule,delayed release(DR/EC) 20 mg PO DAILY RF: 0 albuterol sulfate 90 mcg/actuation HFA aerosol inhaler 2 puff INHALATION Q4H PRN PRN (Reason: COPD) RF: 0 cholecalciferol (vitamin D3) [Vitamin D3] 25 mcg (1,000 unit) tablet 1,000 unit PO DAILY RF: 0 budesonide-formoterol [Symbicort] 160-4.5 mcg/actuation HFA aerosol inhaler 2 puff INHALATION BID RF: 0 Lantus Solostar U-100 Insulin 100 unit/mL (3 mL) Insulin Pen 40 unit subcut BID Qty: 15 RF: 0 clopidogrel 75 mg Tablet 75 mg PO DAILY Qty: 30 RF: 0 amlodipine 10 mg Tablet 10 mg PO DAILY Qty: 30 RF: 0 insulin lispro [Humalog KwikPen Insulin] 100 unit/mL Insulin Pen See Protocol unit subcut ACHS Qty: 15 RF: 0 Discontinued lisinopril 40 MG tablet 40 mg PO DAILY Qty: 0 RF: 0 Referrals / Follow Up: Adilson Myers DO [STAFF PHYSICIAN] - Within 2 Weeks Rita Melton MD [Primary Care Provider] - Within 2 Weeks Disposition Disposition (needs filled in before D/C Order can be placed): Home, Self Care Charges/Coding Visit Charges Inpatient E&M: 67904 Disch Hosp
--- NOTE | 2021-09-12 15:07 | CASEMGMT ---
DOC BOLTON Discharge Follow-up Phone Call: NIA: 15 Strata: 4 Call Date: 09/12/21 Discharge Date: 09/11/21 Time of Call: 1505 Duration: 1 min Admitting Diagnosis: respiratory failure DOC BOLTON attempted to complete follow-up phone call after recent hospitalization. No answer, unable to leave message as voicemail box is not setup.
== END 2021-09-11 16:03 | disposition home or self-care (01) | DRG 130 ==
LOC: ED 17:58 → ICU 19:55 → PCU 09-09 09:38
PROVIDERS: Internal Medicine; Internal Medicine Critical Care Medicine; Emergency Provider Emergency Medicine; PCP Internal Medicine; Visit Provider Student in an Organized Health Care Education/Training Program
DX: J44.1 Chronic obstructive pulmonary disease with (acute) exacerbation (principal); J96.21 Acute and chronic respiratory failure with hypoxia; J96.22 Acute and chronic respiratory failure with hypercapnia; I50.31 Acute diastolic (congestive) heart failure; I11.0 Hypertensive heart disease with heart failure; I25.10 Atherosclerotic heart disease of native coronary artery without angina pectoris; K21.9 Gastro-esophageal reflux disease without esophagitis; E66.01 Morbid (severe) obesity due to excess calories; I24.8 Other forms of acute ischemic heart disease; G47.33 Obstructive sleep apnea (adult) (pediatric); E11.65 Type 2 diabetes mellitus with hyperglycemia; E11.42 Type 2 diabetes mellitus with diabetic polyneuropathy; T38.0X5A Adverse effect of glucocorticoids and synthetic analogues, initial encounter; Z68.41 Body mass index [BMI] 40.0-44.9, adult; Z79.899 Other long term (current) drug therapy; Z79.02 Long term (current) use of antithrombotics/antiplatelets; Z79.4 Long term (current) use of insulin; Z79.51 Long term (current) use of inhaled steroids; Z87.891 Personal history of nicotine dependence; Z99.81 Dependence on supplemental oxygen
CPT/HCPCS: 31500; 31720; 36415; 36600; 51702; 71045; 74018; 80048; 80053; 82803; 82962; 83735; 83880; 84100; 84484; 85025; 85610; 85730; 87070; 87077; 87186; 87205; 87426; 87633; 93005; 94002; 94003; 94640; 97110; 97161; 97166; 97530; 97802; 97803; 99251; 99285; 99406; J7050; A4216; G0463; J0330; J1940; J2405; J3010

== ENCOUNTER 2021-11-28 15:46 | Inpatient (IN) | payer MEDICAID, SELFPAY ==
[2021-11-28] VITALS (15 sets, daily range): BP systolic 142–191; BP diastolic 79–143; PULSE 34–111; RESP 4–35; TEMP 36–37.4; O2SAT 90–98; BMI 47.7; BMI 47.8
--- NOTE | 2021-11-28 15:57 | EKG12_ITS ---
Test Reason : SOB Blood Pressure : / mmHG Vent. Rate : 108 BPM Atrial Rate : 108 BPM P-R Int : 146 ms QRS Dur : 072 ms QT Int : 324 ms P-R-T Axes : 041 120 019 degrees QTc Int : 434 ms Sinus tachycardia Low voltage QRS Septal infarct (cited on or before 16-OCT-2020) Abnormal ECG Confirmed by JASON MARTINEZ, BATSHEVA ([id number]), content editor VIKASH LYMAN ([id number]) on 11/30/2021 10:07:21 AM Referred By: FLAQUITO Confirmed By:BATSHEVA GOMEZ MD
--- NOTE | 2021-11-28 15:59 | ED.VIS.DYS ---
HPI History of Present Illness Chief Complaint: Shortness of Breath Informant: patient and EMS Onset/Context/Timing Onset: Days (several) Context: gradual and onset Timing: Continuous Quality: Positive for - (sob) Current Severity: Severe Maximum Severity: Severe Narrative Narrative: Very limited history available in this dyspneic patient presented by EMS, she had aerosols in route, history of severe COPD on 2 L of oxygen at home, she is so dyspneic she is not able to talk except for very short sentences, she does not respond to every question because of her condition/acuity. [facility] Medical History Acute on chronic respiratory failure with hypoxia and hypercapnia Acute respiratory failure with hypoxia Asthma Benign essential hypertension Chronic back pain Chronic pain Congestive heart failure COPD COPD with acute exacerbation Coronary artery disease Diabetes Diabetes mellitus, type II Former smoker GERD (gastroesophageal reflux disease) Herniated thoracic disc without myelopathy Hypertension Hypertensive urgency Morbid obesity with BMI of 40.0-44.9, adult Obesity (BMI 30-39.9) On home oxygen therapy CARSON (obstructive sleep apnea) Otitis media Home Medications Oxygen, Home [Home Oxygen] 4 - 6 lpm NASAL PRN PRN #0 04/06/19 [Rx Last Taken 07/11/20] atorvastatin 10 mg PO DAILY 10/14/20 [History Last Taken 10/13/20] gabapentin 1,200 mg PO TID 10/14/20 [History Last Taken 10/14/20 1200] albuterol sulfate 2 puff INHALATION Q4H PRN PRN 05/29/21 [History Last Taken Unknown] budesonide-formoterol [Symbicort] 2 puff INHALATION BID 05/29/21 [History Last Taken Unknown] cholecalciferol (vitamin D3) [Vitamin D3] 1,000 unit PO DAILY 05/29/21 [History Last Taken Unknown] ipratropium-albuterol 3 ml INHALATION Q4H 05/29/21 [History Last Taken Unknown] omeprazole 20 mg PO DAILY 05/29/21 [History Last Taken Unknown] Lantus Solostar U-100 Insulin 40 unit SUBCUT BID #15 ml 08/17/21 [Rx Last Taken Unknown] amlodipine 10 mg PO DAILY #30 tab 08/17/21 [Rx Last Taken Unknown] clopidogrel 75 mg PO DAILY #30 tab 08/17/21 [Rx Last Taken Unknown] insulin lispro [Humalog KwikPen Insulin] See Protocol SUBCUT ACHS #15 ml 08/17/21 [Rx Last Taken Unknown] amoxicillin-pot clavulanate 1 tab PO BID #4 tab 09/11/21 [Rx Last Taken Unknown] furosemide 20 mg PO DAILY #30 tab 09/11/21 [Rx Last Taken Unknown] lisinopril 20 mg PO DAILY #30 tab 09/11/21 [Rx Last Taken Unknown] Allergy/AdvReac Type Severity Reaction Status Date / Time aspirin Allergy Anaphylaxis Verified 11/28/21 15:57 ceftriaxone [From Rocephin] Allergy Rash Verified 11/28/21 15:57 cyclobenzaprine HCl Allergy Rash Verified 11/28/21 15:57 [From Flexeril] levofloxacin [From Levaquin] Allergy Rash Verified 11/28/21 15:57 naproxen [From Naprosyn] Allergy Anaphylaxis Verified 11/28/21 15:57 bupropion HCl AdvReac nightmares Verified 11/28/21 15:57 [From Wellbutrin] doxycycline AdvReac Diarrhea Verified 11/28/21 15:57 Family History Mother Breast cancer Cancer Skin Father COPD (chronic obstructive pulmonary disease) Hypertension Heart disease Cancer Skin Surgical History History of section History of tubal ligation Surgical History unable to obtain Social History household members: significant other Smoking Status: Former smoker Tobacco: How many years used: 24 how long ago did patient quit smokin, 1ppd second hand exposure: Yes alcohol intake: never substance use type: does not use ROS ROS ED Review of Systems ROS Unobtainable: other Details: Limited due to acuity/condition Respiratory/Chest Respiratory/Chest: Reports cough and dyspnea EXAM Physical Exam Const Vital Signs: 11/28/21 15:47 11/28/21 15:58 11/28/21 16:17 Temperature 99.3 F H Temperature Source Temporal Pulse Rate 111 H 104 H Respiratory Rate 35 H 30 H Respiratory Effort Labored Accessory Muscle Use Respiratory Pattern Hyperpnea Blood Pressure 164/143 H Blood Pressure Mean 150 Pulse Ox 94 98 Oxygen Delivery Method Non-Rebreather Non-Rebreather Oxygen Flow Rate (L/min) 15 15 Fraction of Inspired Oxygen (FIO2) 65 11/28/21 17:11 11/28/21 17:20 Temperature Temperature Source Pulse Rate 104 H 34 L Respiratory Rate Respiratory Effort Respiratory Pattern Blood Pressure 186/111 H Blood Pressure Mean 136 Pulse Ox 90 Oxygen Delivery Method Bi-pap Bi-pap Oxygen Flow Rate (L/min) Fraction of Inspired Oxygen (FIO2) 65 Positive well nourished and well developed Constitutional Narrative: Ill-appearing, severe respiratory distress General Appearance ED: well developed and NAD Nutritional Appearance: morbidly obese HEENT Reports moist mucous membranes normocephalic and atraumatic Eyes PERRL and EOMs intact bilaterally Neck full ROM, supple and no JVD Resp Resp Narrative: Very poor air movement, struggling to breathe with tracheal tugging and intercostal retractions. Very diminished breath sounds throughout both sides otherwise relatively clear but again limited evaluation due to poor air movement Cardio regular rate, regular rhythm and no murmurs Rate: tachycardic GI non-tender and non-distended Auscultation: normoactive bowel sounds Palpation: soft Back/Spine no CVA tenderness General Back: other FROM Extremity normal to inspection and no calf tenderness General Extremety ED: Yes edema; Negative for pulses abnormal or tenderness General Extremity: edema bilateral lower extremity Details: mild; Negative for pulses abnormal Neuro oriented x3, CN's II-XII intact bilaterally and no sensory deficits noted Sensorium / Orientation: awake and alert Motor Exam: strength 5/5 throughout Skin no rashes or lesions noted and no wounds Skin Narrative: Ashen with cyanosis diffusely MDM MDM MDM Narrative Medical decision making narrative: Upon initial evaluation advised patient and staff that she needs to be intubated immediately. She was hypoxic in the 60s, we got her up to around 90 on a nonrebreather. The patient then states that she does not want to be intubated and apparently she also told EMS this. I asked her if she wanted no intubation even if it meant she would and she confirmed that even if it meant she would , she does not want to be intubated/ventilated, her words. Therefore we put the patient on BiPAP immediately. ABG shows significant CO2 retention with PCO2 of 120. Patient remained somnolent on BiPAP, we adjusted by increasing the TV since she was already breathing 30 x/min. Also, added continuous albuterol through BiPAP, terbutaline, and magnesium infusion. At 65% FiO2, she is oxygenating in the low-mid 90s. Rapid Covid is negative. Given the high prevalence of disease at this time in the population and the fact that this patient is unvaccinated, PCR is sent and is pending. Her troponin is elevated, which it has been multiple times in the past, given her unremarkable EKG I suspect this is due to hypoxemia. Lab Data Attestation: I reviewed the patient's lab results. Labs: Laboratory Results - last 24 hr 11/28/21 11/28/21 11/28/21 16:10 16:10 16:10 WBC 10.0 RBC 5.66 H Hgb 16.3 H Hct 56.0 H MCV 98.9 MCH 28.8 MCHC 29.1 L RDW Std Deviation 49.3 H RDW Coeff of Marcy 13.3 Plt Count 295 MPV 11.8 Immature Gran % (Auto) 0.400 Neut % (Auto) 91.0 H Lymph % (Auto) 4.7 L [place] % (Auto) 3.4 Eos % (Auto) 0.0 Baso % (Auto) 0.5 Absolute Neuts (auto) 9.1 H Absolute Lymphs (auto) 0.47 L Nucleated RBC % 0 Differential Comment SCANNED Sodium 140 Potassium 4.5 Chloride 94 L Carbon Dioxide 42.0 H Anion Gap 4 L BUN 15 Creatinine 0.56 Estim Creat Clear Calc 96.11 Est GFR (MDRD) Af Amer 149 Est GFR (MDRD) Non-Af 123 BUN/Creatinine Ratio 27.0 H Glucose 226 H Lactic Acid Calcium 9.2 Magnesium Total Bilirubin 1.10 H AST 25 ALT 44 Alkaline Phosphatase 196 H Troponin I High Sens 249 H* B-Natriuretic Peptide 355.5 H Total Protein 6.8 Albumin 3.2 Globulin 3.6 Albumin/Globulin Ratio 0.9 11/28/21 11/28/21 16:10 16:55 WBC RBC Hgb Hct MCV MCH MCHC RDW Std Deviation RDW Coeff of Marcy Plt Count MPV Immature Gran % (Auto) Neut % (Auto) Lymph % (Auto) [place] % (Auto) Eos % (Auto) Baso % (Auto) Absolute Neuts (auto) Absolute Lymphs (auto) Nucleated RBC % Differential Comment Sodium Potassium Chloride Carbon Dioxide Anion Gap BUN Creatinine Estim Creat Clear Calc Est GFR (MDRD) Af Amer Est GFR (MDRD) Non-Af BUN/Creatinine Ratio Glucose Lactic Acid 0.9 Calcium Magnesium 1.6 Total Bilirubin AST ALT Alkaline Phosphatase Troponin I High Sens B-Natriuretic Peptide Total Protein Albumin Globulin Albumin/Globulin Ratio ABG Data ABG results: ABG 11/28/21 16:22 Specimen Type ART Sample Site L Brach pH 7.24 L Bicarbonate Actual 51.5 H Total CO2 > 50 Base Excess 24 H O2 Saturation 92 L O2 % 65 ABG pCO2 120.7 H* ABG pO2 83 Baudilio Test Positive O2 Delivery Device AVAPS Crit Call To/Read Back Yes Blood Gas Notified Whom Maninder Radiography Chest X-Ray - ED: 1 View, Read by ED Physician and Right Infiltrate EKG Initial EKG: Attestation: I personally reviewed and interpreted this EKG as follows: Interpretation: Sinus Tachycardia Comments: Low voltage. Rightward axis. Prior EKG tracings: available for review Prior: Unchanged Critical Care Time Critical Care Time: Yes Critical care time (excluding procedures): 30-74 minutes (40 min), Including time spent:, Discussing w/Patient &/or Family/Publications Manager, Discussing w/Consultants, Arranging Admission or Transfer and Performing Direct Patient Care at Bedside Discharge Plan Dx/Rx/DC Orders Clinical Impression: Acute respiratory failure with hypoxia and hypercapnia, Acute exacerbation of chronic obstructive pulmonary disease (COPD), Pneumonia, Elevated troponin Disposition Disposition: [facility] Capacity Capacity Assessment Tool Can the patient make a choice & communicate that choice?: Yes Can the patient understand benefits, risks and alternatives?: Yes Can the patient make a logical, rational choice?: Yes Is the choice the patient makes consistent w/ their values?: Yes Is there an impending, emergent risk to the patient?: Yes Does the patient have an Advance Directive?: No Is there a Surrogate Available?: No (RN contacted mother via phone; sig other attempted but not available)
[2021-11-28] MEDS: Albuterol 2.5 MG/3 ML VIAL.NEB. INHALATION ×3 (16:16→16:17)
[2021-11-28] MEDS: MethylPREDNISolone 125 MG/2 ML Vial IV (16:31)
[2021-11-28 16:40] LABS: Allen Test Positive; Base Excess 24 mmol/L (-2 to +2); Bicarbonate 51.5 mmol/L (22-26); Blood Gas Specimen Type ART; FI02 65; O2 Delivery Device AVAPS; PO2 83 mmHG (75-100); SITE L Brach; SO2 92 % (95-99); Total Carbon Dioxide > 50 mmol/L; pCO2 120.7 mmHg (35-45); pH 7.24 (7.35-7.45)
[2021-11-28 17:08] LABS: Absolute Lymphocyte Count 0.47 X10^3/uL (0.83-4.51); Absolute Neutrophil Count 9.1 X10^3/uL (2.0-7.7); Basophil# 0.05 X10^3/uL; Basophil% 0.5 % (0-1); Hemoglobin 16.3 g/dL (12.0-15.0); Lymphocyte # 0.47 X10^3/ul (0.83-4.51); Lymphocyte % 4.7 % (19-41); Mean Corp Hgb Conc 29.1 g/dL (32-36); Mean Corpuscular Hgb 28.8 pg (27.0-32.0); Mean Corpuscular Volume 98.9 fL (81-99); Mean Platelet Vol. 11.8 fl (6.2-12.0); Monocyte# 0.34 X10^3/uL; Monocyte% 3.4 % (0-10); NRBC Flagged by Analyzer 0 % (0-5); Neutrophil # 9.09 X10^3/uL (2.7-7.7); POSITIVE DIFFERENTIAL YES; Platelet Count 295 K/mm3 (150-450); RBC Distribution Width CV 13.3 % (11.6-14.6); RBC Distribution Width SD 49.3 fl (35.1-43.9); Red Blood Count 5.66 M/mm3 (4.2-5.4)
[2021-11-28 17:18] LABS: Differential Indicated SCAN CRITERIA MET
[2021-11-28] MEDS: Terbutaline 1 MG/ML Vial 0.25 MG SC (17:19)
--- NOTE | 2021-11-28 17:20 | RAD_ITS ---
HISTORY: sob EXAMINATION/TECHNIQUE: XR Chest 1 View: Portable AP semiupright chest x-ray COMPARISON: 09/06/21 FINDINGS: LINES/DEVICES: None. LUNGS: Right basilar airspace opacity with small consolidation. No definite pleural effusion.. MEDIASTINUM AND CARDIOVASCULAR STRUCTURES: Stable cardiomegaly. BONES AND SOFT TISSUES: No acute bony abnormalities. RAD/Chest 1 View (Portable) IMPRESSION: Cardiomegaly with right basilar airspace disease and small consolidation. Findings consistent with pneumonia. at 1759 Reported and signed by: Rikki Hill MD Electronically Signed: Rikki Hill MD at 17:58 EST Tel , Service support ,
[2021-11-28 17:33] LABS: Lactic Acid 0.9 mmol/L (0.4-1.9)
[2021-11-28 17:35] LABS: Magnesium 1.6 mg/dL (1.6-2.6)
[2021-11-28 17:36] LABS: Differential Comment SCANNED
[2021-11-28 17:37] LABS: ALB/GLOB Ratio 0.9 RATIO (0.9-2.4); AST(SGOT) 25 U/L (15-37); Alanine Aminotransfer ALT/SGPT 44 U/L (13-56); Albumin, Serum 3.2 g/dL (3.2-5.0); Alkaline Phosphatase 196 U/L (45-117); Anion Gap 4 (5-15); BUN 15 mg/dL (7-18); Calcium,Total 9.2 mg/dL (8.5-10.1); Chloride 94 mmol/L (98-107); Creatinine, Serum 0.56 mg/dL (0.55-1.02); EST Glomerular Filtration Rate 123 mL/min (>60); Est Glom Filt Rate - Afr Amer 149 mL/min (>60); Estimated Creatinine Clearance 96.11 ml/min; Globulin 3.6 g/dL (2.2-4.2); Glucose 226 mg/dL (74-106); Potassium 4.5 mmol/L (3.5-5.1); Protein, Total 6.8 g/dL (6.4-8.2); Sodium Level 140 mmol/L (136-145); Troponin-I HS 249 pg/mL (3.0-54.0)
--- NOTE | 2021-11-28 17:43 | ED.RN ---
THIS NURSE SPOKE WITH MOTHER OF PATIENT AND LET HER KNOW THAT PT. WAS IN ED AND NOT DOING WELL. PT. MOTHER STATED THEY CANNOT COME IN BECAUSE THEY CAN'T DRIVE AT NIGHT AND THAT PT. IS IN HERE FREQUENTLY. NURSE INFORMED MOTHER THAT PT. WAS HAVING DIFFICULTY BREATHING AND REFUSED INTUBATION. MOTHER SAID TO CALL BOYFRIEND. NURSE ATTEMPTED TO CALL BOYFRIEND, BUT THERE WAS NO ANSWER.
[2021-11-28 17:49] LABS: BNP,B-Type NATRIURETIC PEPTIDE 355.5 pg/mL (0-100)
[2021-11-28] MEDS: Magnesium Sulfate 4gm/100mL 4 GM/100 ML IV.SOLN. IV (18:29)
--- NOTE | 2021-11-28 18:57 | PCM.HP.STD ---
HPI - General General Date of Admission: 11/28/21 HPI Narrative ESTIVEN LONG, is a 50 F who presents presents with shortness of breath. History obtained through the emergency room physician the patient is obtunded at present unable to find any history. They wanted to intubate the patient in the emergency room the patient was alert enough and verified to the emergency room physician that she wished to be DNR Comfort Care arrest no intubation. Patient was then put on BiPAP. She had an ABG that showed a pH of 7.24, PCO2 120.7. She received aztreonam, vancomycin, aerosols and methylprednisolone. [facility] Medical History Acute on chronic respiratory failure with hypoxia and hypercapnia Acute respiratory failure with hypoxia Asthma Benign essential hypertension Chronic back pain Chronic pain Congestive heart failure COPD COPD with acute exacerbation Coronary artery disease Diabetes Diabetes mellitus, type II Former smoker GERD (gastroesophageal reflux disease) Herniated thoracic disc without myelopathy Hypertension Hypertensive urgency Morbid obesity with BMI of 40.0-44.9, adult Obesity (BMI 30-39.9) On home oxygen therapy CARSON (obstructive sleep apnea) Otitis media Home Medications Oxygen, Home [Home Oxygen] 4 - 6 lpm NASAL PRN PRN #0 04/06/19 [Rx Last Taken 07/11/20] atorvastatin 10 mg PO DAILY 10/14/20 [History Last Taken 10/13/20] gabapentin 1,200 mg PO TID 10/14/20 [History Last Taken 10/14/20 1200] albuterol sulfate 2 puff INHALATION Q4H PRN PRN 05/29/21 [History Last Taken Unknown] budesonide-formoterol [Symbicort] 2 puff INHALATION BID 05/29/21 [History Last Taken Unknown] cholecalciferol (vitamin D3) [Vitamin D3] 1,000 unit PO DAILY 05/29/21 [History Last Taken Unknown] ipratropium-albuterol 3 ml INHALATION Q4H 05/29/21 [History Last Taken Unknown] omeprazole 20 mg PO DAILY 05/29/21 [History Last Taken Unknown] Lantus Solostar U-100 Insulin 40 unit SUBCUT BID #15 ml 08/17/21 [Rx Last Taken Unknown] amlodipine 10 mg PO DAILY #30 tab 09/24/21 [Rx Last Taken Unknown] clopidogrel 75 mg PO DAILY #30 tab 08/17/21 [Rx Last Taken Unknown] insulin lispro [Humalog KwikPen Insulin] See Protocol SUBCUT ACHS #15 ml 08/17/21 [Rx Last Taken Unknown] amoxicillin-pot clavulanate 1 tab PO BID #4 tab 09/11/21 [Rx Last Taken Unknown] furosemide 20 mg PO DAILY #30 tab 09/11/21 [Rx Last Taken Unknown] lisinopril 20 mg PO DAILY #30 tab 09/11/21 [Rx Last Taken Unknown] Allergy/AdvReac Type Severity Reaction Status Date / Time aspirin Allergy Anaphylaxis Verified 11/28/21 15:57 ceftriaxone [From Rocephin] Allergy Rash Verified 11/28/21 15:57 cyclobenzaprine HCl Allergy Rash Verified 11/28/21 15:57 [From Flexeril] levofloxacin [From Levaquin] Allergy Rash Verified 11/28/21 15:57 naproxen [From Naprosyn] Allergy Anaphylaxis Verified 11/28/21 15:57 bupropion HCl AdvReac nightmares Verified 11/28/21 15:57 [From Wellbutrin] doxycycline AdvReac Diarrhea Verified 11/28/21 15:57 Family History Mother Breast cancer Cancer Skin Father COPD (chronic obstructive pulmonary disease) Hypertension Heart disease Cancer Skin Surgical History History of section History of tubal ligation Social History household members: significant other Smoking Status: Former smoker Tobacco: How many years used: 24 how long ago did patient quit smokin, 1ppd second hand exposure: Yes alcohol intake: never substance use type: does not use ROS Review of Systems ROS Unobtainable: due to encephalopathy Vital Signs Vital Signs Vital Signs: 11/28/21 15:47 11/28/21 15:58 11/28/21 16:17 Temperature 37.4 C H Temperature Source Temporal Pulse Rate 111 H 104 H Respiratory Rate 35 H 30 H Respiratory Effort Labored Accessory Muscle Use Respiratory Pattern Hyperpnea Blood Pressure 164/143 H Blood Pressure Mean 150 Pulse Ox 94 98 Oxygen Delivery Method Non-Rebreather Non-Rebreather Oxygen Flow Rate (L/min) 15 15 Fraction of Inspired Oxygen (FIO2) 65 11/28/21 17:11 11/28/21 17:20 11/28/21 18:08 Temperature Temperature Source Pulse Rate 104 H 34 L 100 Respiratory Rate 18 Respiratory Effort Respiratory Pattern Blood Pressure 186/111 H 161/86 H Blood Pressure Mean 136 111 Pulse Ox 90 95 Oxygen Delivery Method Bi-pap Bi-pap Mechanical Ventilator Oxygen Flow Rate (L/min) Fraction of Inspired Oxygen (FIO2) 65 65 11/28/21 18:22 Temperature 36.0 C L Temperature Source Temporal Pulse Rate 104 H Respiratory Rate 19 H Respiratory Effort Respiratory Pattern Blood Pressure 163/94 H Blood Pressure Mean 117 Pulse Ox 94 Oxygen Delivery Method Bi-pap Oxygen Flow Rate (L/min) Fraction of Inspired Oxygen (FIO2) 75 Weight Weight: 118.5 kg Body Mass Index (BMI) 47.7 Physical Exam Const Constitutional Narrative: Obtunded, on BiPAP. HEENT normocephalic and head/scalp atraumatic Resp Resp Narrative: Coarse breath sounds bilaterally Cardio regular rate, regular rhythm, S1 normal heart sound and S2 normal heart sound GI normal to inspection, nondistended, normoactive bowel sounds, soft to palpation, non-tender and non-distended Extremity normal to inspection Skin no rashes or lesions noted and no wounds Results Lab / Micro Data Attestation: I reviewed the patient's lab results. Result Diagrams: 11/28/21 16:10 11/28/21 16:10 Labs: Laboratory Results - last 24 hr 11/28/21 16:10: WBC 10.0, RBC 5.66 H, Hgb 16.3 H, Hct 56.0 H, MCV 98.9, MCH 28.8, MCHC 29.1 L, RDW Std Deviation 49.3 H, RDW Coeff of Marcy 13.3, Plt Count 295, MPV 11.8, Immature Gran % (Auto) 0.400, Neut % (Auto) 91.0 H, Lymph % (Auto) 4.7 L, Culberson % (Auto) 3.4, Eos % (Auto) 0.0, Baso % (Auto) 0.5, Absolute Neuts (auto) 9.1 H, Absolute Lymphs (auto) 0.47 L, Nucleated RBC % 0, Differential Comment SCANNED 11/28/21 16:10: Sodium 140, Potassium 4.5, Chloride 94 L, Carbon Dioxide 42.0 H, Anion Gap 4 L, BUN 15, Creatinine 0.56, Estim Creat Clear Calc 96.11, Est GFR (MDRD) Af Amer 149, Est GFR (MDRD) Non-Af 123, BUN/Creatinine Ratio 27.0 H, Glucose 226 H, Calcium 9.2, Total Bilirubin 1.10 H, AST 25, ALT 44, Alkaline Phosphatase 196 H, Troponin I High Sens 249 H*, Total Protein 6.8, Albumin 3.2, Globulin 3.6, Albumin/Globulin Ratio 0.9 11/28/21 16:10: B-Natriuretic Peptide 355.5 H 11/28/21 16:10: Magnesium 1.6 11/28/21 16:55: Lactic Acid 0.9 Micro: Microbiology 11/28/21 16:04 Nasal Secretion SARS-CoV-2 Antigen (Rapid) - Final ABG Data ABG results: ABG 11/28/21 16:22 Specimen Type ART Sample Site L Brach pH 7.24 L Bicarbonate Actual 51.5 H Total CO2 > 50 Base Excess 24 H O2 Saturation 92 L O2 % 65 ABG pCO2 120.7 H* ABG pO2 83 Baudilio Test Positive O2 Delivery Device AVAPS Crit Call To/Read Back Yes Blood Gas Notified Whom Maninder Radiology Impression Chest X-Ray 11/28/21 17:20 IMPRESSION: Cardiomegaly with right basilar airspace disease and small consolidation. Findings consistent with pneumonia. at 1759 Reported and signed by: Rikki Hill MD Electronically Signed: Rikki Hill MD at 17:58 EST Tel , Service support , Assessment & Plan Assessment/Plan (1) Acute respiratory failure with hypoxia and hypercapnia: (2) Acute exacerbation of chronic obstructive pulmonary disease (COPD): (3) Pneumonia: QUALIFIERS: Pneumonia type: due to unspecified organism Laterality: bilateral Lung location: lower lobe of lung Qualified Code(s): J18.9 - Pneumonia, unspecified organism (4) Elevated troponin: (5) CO2 narcosis: (6) (HFpEF) heart failure with preserved ejection fraction: QUALIFIERS: Heart failure chronicity: acute on chronic Qualified Code(s): I50.33 - Acute on chronic diastolic (congestive) heart failure PLAN: 1. Acute on chronic hypoxic and hypercapnic respiratory failure Likely multifactorial due to possible pneumonia plus exacerbation of COPD plus CHF Currently on BiPAP. Patient does not not want to be intubated Wean oxygen as able Recheck ABG 6 hours after the first Since patient does not want to be intubated we will put the patient on the progressive care unit 2. Acute exacerbation of COPD Bronchodilators and methylprednisolone 3. Possible gram-negative pneumonia Continue with aztreonam and vancomycin Follow-up infectious work-up 4. Acute heart failure with preserved ejection fraction EF 75% from 2D echocardiogram from 05/29/2021 Diuretics 5. Elevated troponins Chronic Unclear significance but monitor for now 6. CO2 narcosis Likely contributed to the patient's metabolic encephalopathy Continue BiPAP and recheck ABG. 7. VTE prophylaxis with enoxaparin 8. CODE STATUS: Verified by the emergency room physician who spoke with the patient as well as the witnesses at bedside that patient is DNR Comfort Care arrest no intubation 9. Prognosis is guarded to poor. Charges/Coding Visit Charges Inpatient E&M: 24791 Init Hosp L3
--- NOTE | 2021-11-28 20:56 | PCS.PANDOC ---
PANDEMIC DOCUMENTATION INITIATED: Date: 07/09/2021 Time: 190
--- NOTE | 2021-11-28 22:13 | CPS ---
(1947) Additional 10mg of Albuterol Concentrate given to pt.; Dr. Dickens wanted to antagonize pt.'s heart to help increase air movement in lungs.
--- NOTE | 2021-11-28 23:02 | CPS ---
DECREASED FIO2 TO 65%
[2021-11-29] VITALS (16 sets, daily range): BP systolic 121–146; BP diastolic 67–89; PULSE 98–104; RESP 17–32; TEMP 36.2–36.7; O2SAT 89–99
[2021-11-29] MEDS: 0.9% Saline Lock 10 ML Syringe IV ×3 (00:46→14:46)
[2021-11-29] MEDS: Furosemide 40 MG/4 ML Vial IV ×2 (00:46→10:25)
--- NOTE | 2021-11-29 00:49 | PCM.RX.CS ---
Consult Pharmacy has been consulted to manage selected antiobiotic: Vancomycin Type of Consult: New start Suspected Infection: Pneumonia Prior Doses of Antibiotics Received/Current Regimen: Medications Vancomycin HCl 1,250 mg/ (Sodium Chloride) 275 mls @ 167 mls/hr IV Q8H BEVERLY Discontinued Medications Vancomycin HCl 1,750 mg/ (Sodium Chloride) 535 mls @ 250 mls/hr IV X1 ONE Stop: 11/28/21 20:08 Last Admin: 11/28/21 21:44 Dose: Infused Documented by: Labs: Sodium 140 mmol/L (136-145) 11/28/21 16:10 Potassium 4.5 mmol/L (3.5-5.1) 11/28/21 16:10 Chloride 94 mmol/L (98-107) L 11/28/21 16:10 Carbon Dioxide 42.0 mmol/L (21.0-32.0) H 11/28/21 16:10 Anion Gap 4 (5-15) L 11/28/21 16:10 BUN 15 mg/dL (7-18) 11/28/21 16:10 Creatinine 0.56 mg/dL (0.55-1.02) 11/28/21 16:10 Est GFR (MDRD) Af Amer 149 mL/min (>60) 11/28/21 16:10 Est GFR (MDRD) Non-Af 123 mL/min (>60) 11/28/21 16:10 BUN/Creatinine Ratio 27.0 RATIO (10-20) H 11/28/21 16:10 Glucose 226 mg/dL (74-106) H 11/28/21 16:10 Microbiology: Microbiology 11/28/21 18:25 Mucosa - Nose Influenza Types A,B Direct FA (DARRYL) - Final 11/28/21 16:04 Nasal Secretion SARS-CoV-2 Antigen (Rapid) - Final Weight used for dosin.6 kg Estimated Creatinine Clearance: 96 Goal Trough: 15-20 mcg/mL Pharmacy Plan for Drug Dosing: Pharmacy Service will continue to monitor and adjust dosing as required. Follow-Up Labs: Trough Vancomycin Labs to be done on [date and time ordered]: 11/29/21 @1900
[2021-11-29] MEDS: Ipratropium/Albuterol Sulfate 3 ML AMPUL.NEB INHALATION ×2 (07:03→13:33)
[2021-11-29 07:23] LABS: Absolute Lymphocyte Count 0.57 X10^3/uL (0.83-4.51); Absolute Neutrophil Count 7.6 X10^3/uL (2.0-7.7); Basophil# 0.02 X10^3/uL; Basophil% 0.2 % (0-1); Hematocrit 54.3 % (37-47); Hemoglobin 15.4 g/dL (12.0-15.0); Lymphocyte # 0.57 X10^3/ul (0.83-4.51); Lymphocyte % 6.7 % (19-41); Mean Corp Hgb Conc 28.4 g/dL (32-36); Mean Corpuscular Hgb 28.5 pg (27.0-32.0); Mean Corpuscular Volume 100.6 fL (81-99); Mean Platelet Vol. 11.4 fl (6.2-12.0); Monocyte# 0.26 X10^3/uL; Monocyte% 3.1 % (0-10); NRBC Flagged by Analyzer 0 % (0-5); Neutrophil # 7.62 X10^3/uL (2.7-7.7); Neutrophil % 89.6 % (47-70); POSITIVE DIFFERENTIAL YES; Platelet Count 292 K/mm3 (150-450); RBC Distribution Width CV 13.6 % (11.6-14.6); White Blood Count 8.5 K/mm3 (4.4-11.0)
[2021-11-29 07:29] LABS: Differential Indicated SCAN CRITERIA MET
[2021-11-29 07:44] LABS: ALB/GLOB Ratio 0.7 RATIO (0.9-2.4); AST(SGOT) 16 U/L (15-37); Alanine Aminotransfer ALT/SGPT 40 U/L (13-56); Albumin, Serum 2.8 g/dL (3.2-5.0); Alkaline Phosphatase 178 U/L (45-117); Anion Gap 7 (5-15); BUN 21 mg/dL (7-18); BUN/Creat Ratio 30.3 RATIO (10-20); Calcium,Total 8.8 mg/dL (8.5-10.1); Chloride 94 mmol/L (98-107); Creatinine, Serum 0.69 mg/dL (0.55-1.02); EST Glomerular Filtration Rate 95 mL/min (>60); Est Glom Filt Rate - Afr Amer 116 mL/min (>60); Globulin 3.8 g/dL (2.2-4.2); Glucose 310 mg/dL (74-106); Potassium 4.7 mmol/L (3.5-5.1); Protein, Total 6.6 g/dL (6.4-8.2); Sodium Level 139 mmol/L (136-145)
[2021-11-29 08:58] LABS: Differential Comment SCANNED
--- NOTE | 2021-11-29 09:57 | NURSING ---
pcu in and doing bath with soap and water. pt very excoriated with yeast to groin and periarea. pt angry and c/o during am care.
[2021-11-29] MEDS: Enoxaparin 40 MG/0.4 ML Syringe SC (10:25)
--- NOTE | 2021-11-29 10:48 | CPS ---
Patient rips off Bipap mask and refuses to wear it.
--- NOTE | 2021-11-29 12:28 | NURSING ---
abg obtained and pt keeps eyes closed and only flinches. pt placed back on bipap with charge and resp therapist. had to hold hands down and pt thrashing head side to side but got bipap on after couple minutes. pt saying no! no! pt settled back down and able to wood. will monitor for hypoxia as pt may have ripped mask off again.
--- NOTE | 2021-11-29 12:31 | NURSING ---
pt spo2 84% and when went into room pt with bipap pulled off and laying on chest. pt thrashing head about when attempted to just put nc back on. pt arms held and high flow o2 back on. will monitor
--- NOTE | 2021-11-29 13:44 | CASEMGMT ---
Physician called patient's parents via speaker phone at desk. Physician discussed patient's condition and recommendation for Hospice. Patient is not able to make this decision right now as she is not alert enough. Patient's mom said she will come to the hospital. Physician let her know that DIMITRY will send a referral to Hospice and she was in agreement with this. DIMITRY called Hospice regarding referral and spoke with Wilman who answered the phone. DIMITRY told her that the physician would like this referral completed today. Wilman said she can take the referral. DIMITRY made referral and also faxed information. Vanessa Chin MSW [place]ERNARD
--- NOTE | 2021-11-29 13:58 | NURSING ---
pts mother updated and here to visit. wanting to have resp try and put her on the mask again since ill be here pt fought but mothers voice seemed to calm pt and pt placed back on sucessfully now. mother at bedside and dr. boles aware that is here to come talk with. 5min after pt placed on bipap pt ripped back off again despite mother sitting with pt. cps and hot molder assisted with getting nc back in place.
--- NOTE | 2021-11-29 14:17 | CPS ---
NEON SIGN INSTALLER and RN tried multiple times for patient to wear Bipap. Patients mother was in to try and help patient keep mask on but this did not work either. NC placed back on patient
[2021-11-29 14:25] LABS: Allen Test Positive; Base Excess 23 mmol/L (-2 to +2); Bicarbonate 50.4 mmol/L (22-26); Blood Gas Specimen Type ART; O2 Delivery Device Cannula; PO2 63 mmHG (75-100); SITE R Radial; SO2 83 % (95-99); Total Carbon Dioxide > 50 mmol/L; pCO2 126.4 mmHg (35-45); pH 7.21 (7.35-7.45)
[2021-11-29] MEDS: Nystatin Ointment 1 APPLIC TOPICAL (14:34)
--- NOTE | 2021-11-29 15:05 | NURSING ---
[address] mother at bedside and dr. boles and charge and this rn in to enforce pt's prognosis to mother and to get hospice consulted. mother crying and willing pt to live and to wear the mask attempted again to place bipap but pt thrashing head and saying no mom no! i cant! [facility] called. hospice appt set up for today per dr. kirby. mothers sister coming in for support.
--- NOTE | 2021-11-29 15:25 | CASEMGMT ---
SW tried to call the number that we have for patient's adult son Zay ([phone]). However, the number has been disconnected. DIMITRY spoke with patient's mom, Nereida. SW asked if she had Zay's phone number. She at first wanted to just keep him out of it, but SW told her that legally we need to check with him. Nereida then called Zay and put him on speaker phone. DIMITRY spoke with Zay, introduced self and role at [facility]. DIMITRY explained that patient is not doing well and the doctor is recommending Hospice. SW told him that legally he is the next of kin. DIMITRY asked Zay if he would give permission for Hospice or if he wanted to pass this on to his grandma, Nereida. Zay said, I want to pass it on to my grandma. DIMITRY appreciated him talking with SW we just did not want to leave him out of situation. He thanked DIMITRY for checking and again would prefer Nereida make the decisions. Vanessa Chin BLACK TOP SPREADER MACHINE OPERATOR [place]
--- NOTE | 2021-11-29 16:05 | CHAPLAIN ---
Type of Pastoral Visit _x__ Initial Visit ___ Follow-up Visit ___ On-call Visit ___ General Patient Visit ___ Spiritual Assessment ___ Family Conference ___ Bereavement ___ Rapid Response ___ Code Blue ___ Other (describe below) Pastoral Care Referral From ___ Patient ___ Family _x__ Nurse ___ Physician ___ Compensation And Benefits Analyst ___ Pathologist ___ Other (describe below) Sacrament/Intervention _x__ Active listening ___ Anointing ___ Mormon ___ Bereavement ___ Communion _x__ Ann exploration ___ _x__ Life review _x__ Prayer ___ Reconciliation ___ Sacrament of Sick _x__ Supportive presence ___ Wedding ___ Other (describe below) Pastoral Comments charge entry specialist called to request support for mother of this patient; pt is not doing well, is minimally responsive, and will have a hospice consult; sat at bedside with patient and her mother; pt in not responding at this time but makes some movements; mother repeats over and over about how tired she is, pleading with God for help, speaking of how hard this situation is for her, etc.; much time in listening, inquiring of mother's own support and resources for help; mother states she is a believer but does not participant in any moravian; mother says that family is small in numbers but she has friends to call on; father recently had surgery, son and his have COVID, and thus mother is handling the situation by being present; a sister of the patient arrived to give support; presence and prayer along with a listening ear and facilitation of coping skills were given by this motor assembler
--- NOTE | 2021-11-29 16:32 | DS.PCM_ITS ---
Providers Date of Admission: 11/28/21 Date of Discharge: 12/01/21 Primary Care Physician: Dr. Rita Melton MD Reason For Visit: RESPIRATORY FAILURE Diagnosis Discharge Diagnosis (1) Acute respiratory failure with hypoxia and hypercapnia: Status: Acute Code(s): J96.01 - Acute respiratory failure with hypoxia; J96.02 - Acute respiratory f ailure with hypercapnia (2) Acute exacerbation of chronic obstructive pulmonary disease (COPD): Status: Acute Code(s): J44.1 - Chronic obstructive pulmonary disease with (acute) exacerbation (3) Pneumonia: Status: Acute Code(s): J18.9 - Pneumonia, unspecified organism Qualifiers: Laterality: bilateral Lung location: lower lobe of lung Pneumonia type: due to unspecified organism Qualified Code(s): J18.9 - Pneumonia, unspecified organism (4) Elevated troponin: Status: Acute Code(s): R77.8 - Other specified abnormalities of plasma proteins (5) CO2 narcosis: Status: Acute Code(s): R06.89 - Other abnormalities of breathing (6) (HFpEF) heart failure with preserved ejection fraction: Status: Acute Code(s): I50.30 - Unspecified diastolic (congestive) heart failure Qualifiers: Heart failure chronicity: acute on chronic Qualified Code(s): I50.33 - Acute on chronic diastolic (congestive) heart failure Medications at Discharge Home Medications Oxygen, Home [Home Oxygen] 4 - 6 lpm NASAL PRN PRN #0 04/06/19 atorvastatin 10 mg PO DAILY 10/14/20 gabapentin 1,200 mg PO TID 10/14/20 albuterol sulfate 2 puff INHALATION Q4H PRN PRN 05/29/21 budesonide-formoterol [Symbicort] 2 puff INHALATION BID 05/29/21 cholecalciferol (vitamin D3) [Vitamin D3] 1,000 unit PO DAILY 05/29/21 ipratropium-albuterol 3 ml INHALATION Q4H 05/29/21 omeprazole 20 mg PO DAILY 05/29/21 Lantus Solostar U-100 Insulin 40 unit SUBCUT BID #15 ml 08/17/21 amlodipine 10 mg PO DAILY #30 tab 08/17/21 clopidogrel 75 mg PO DAILY #30 tab 08/17/21 insulin lispro [Humalog KwikPen Insulin] See Protocol SUBCUT ACHS #15 ml 08/17/21 amoxicillin-pot clavulanate 1 tab PO BID #4 tab 09/11/21 furosemide 20 mg PO DAILY #30 tab 09/11/21 lisinopril 20 mg PO DAILY #30 tab 09/11/21 Hospital Course Operations None Procedures None Summary of Care Provided Minutes Spent on Discharge: 40 Hospital Course: 50-year-old female with past medical history of COPD, hypertension, morbid obesity, sleep apnea who presented with progressive shortness of breath. Patient was found to be in acute respiratory failure in the ED. Her pH was 7.24, PCO2 was 120.7. A chest x-ray showed bilateral infiltrates. Patient was very lethargic in the ED and was going to be intubated. She however was alert enough to tell the ED physician that she does not want any intubation. She was started on IV Solu-Medrol, breathing treatme nt, IV aztreonam and vancomycin. She was admitted to the PCU. Patient was managed on BiPAP overnight. When patient was seen the next day, she was very lethargic, she has been refusing her BiPAP since 8 AM. Her repeat PCO2 initially showed an improvement. Patient was monitored further. She continued to be very somnolent, repeat ABG showed pH of 7.21, PCO2 126.4. Patient repeatedly says she did not want to be on BiPAP anymore. It was unclear if patient truly understood the implication. Called her parents on phone, her mother stated that patient has said repeatedly prior to admission that she did not want to be intubated again. She agreed to come in and talk to patient. Patient and her mother was seen at the bedside. Patient repeatedly told her mother that she did not want to be intubated. We discussed her current general clinical presentation. Hospice was recommended. Hospice was consulted, patient was accepted to the inpatient hospice facility. Physical Exam Narrative Physical exam: General: Alert, Oriented x3, very lethargic, obese HEENT: Atraumatic Oral: Moist Mucosa Neck: Supple Lungs: Diminished to auscultation Cardiovascular: HS I+II, regular, no murmurs Abdomen: Bowel Sounds Present, Soft, Non Tender Extremities: No edema Weight / BMI Weight Weight: 118.6 kg Body Mass Index (BMI) 47.8 ABG / Lab / Microbiology Data Result Diagrams: 11/29/21 07:00 11/29/21 07:00 Laboratory: Laboratory Results - last 24 hr 11/28/21 16:10: WBC 10.0, RBC 5.66 H, Hgb 16.3 H, Hct 56.0 H, MCV 98.9, MCH 28.8, MCHC 29.1 L, RDW Std Deviation 49.3 H, RDW Coeff of Marcy 13.3, Plt Count 295, MPV 11.8, Immature Gran % (Auto) 0.400, Neut % (Auto) 91.0 H, Lymph % (Auto) 4.7 L, [place] % (Auto) 3.4, Eos % (Auto) 0.0, Baso % (Auto) 0.5, Absolute Neuts (auto) 9.1 H, Absolute Lymphs (auto) 0.47 L, Nucleated RBC % 0, Differential Comment SCANNED 11/28/21 16:10: Sodium 140, Potassium 4.5, Chloride 94 L, Carbon Dioxide 42.0 H, Anion Gap 4 L, BUN 15, Creatinine 0.56, Estim Creat Clear Calc 96.11, Est GFR (MDRD) Af Amer 149, Est GFR (MDRD) Non-Af 123, BUN/Creatinine Ratio 27.0 H, Glucose 226 H, Calcium 9.2, Total Bilirubin 1.10 H, AST 25, ALT 44, Alkaline Phosphatase 196 H, Troponin I High Sens 249 H*, Total Protein 6.8, Albumin 3.2, Globulin 3.6, Albumin/Globulin Ratio 0.9 11/28/21 16:10: B-Natriuretic Peptide 355.5 H 11/28/21 16:10: Magnesium 1.6 11/28/21 16:55: Lactic Acid 0.9 11/28/21 17:14: COVID-19 (KOFI) Not Detected 11/29/21 07:00: WBC 8.5, RBC 5.40, Hgb 15.4 H, Hct 54.3 H, MCV 100.6 H, MCH 28.5, MCHC 28.4 L, RDW Std Deviation 51.0 H, RDW Coeff of Marcy 13.6, Plt Count 292, MPV 11.4, Immature Gran % (Auto) 0.400, Neut % (Auto) 89.6 H, Lymph % (Auto) 6.7 L, [place] % (Auto) 3.1, Eos % (Auto) 0.0, Baso % (Auto) 0.2, Absolute Neuts (auto) 7.6, Absolute Lymphs (auto) 0.57 L, Nucleated RBC % 0, Differential Comment SCANNED 11/29/21 07:00: Sodium 139, Potassium 4.7, Chloride 94 L, Carbon Dioxide 38.0 H, Anion Gap 7, BUN 21 H, Creatinine 0.69, Estim Creat Clear Calc 78.00, Est GFR (MDRD) Af Amer 116, Est GFR (MDRD) Non-Af 95, BUN/Creatinine Ratio 30.3 H, Glucose 310 H, Calcium 8.8, Total Bilirubin 0.50, AST 16, ALT 40, Alkaline Phosphatase 178 H, Total Protein 6.6, Albumin 2.8 L, Globulin 3.8, Albumin/Globulin Ratio 0.7 L Microbiology: Microbiology 11/29/21 00:45 Urine, Random Legionella Antigen - Final 11/29/21 00:45 Urine, Random Streptococcus pneumoniae Antigen (M - Final 11/28/21 18:25 Mucosa - Nose Influenza Types A,B Direct FA (DARRYL) - Final 11/28/21 16:04 Nasal Secretion SARS-CoV-2 Antigen (Rapid) - Final ABG: ABG 11/28/21 11/29/21 16:22 12:25 Specimen Type ART ART Sample Site L Brach R Radial pH 7.24 L 7.21 L Bicarbonate Actual 51.5 H 50.4 H Total CO2 > 50 > 50 Base Excess 24 H 23 H O2 Saturation 92 L 83 L O2 % 65 ABG pCO2 120.7 H* 126.4 H* ABG pO2 83 63 L Baudilio Test Positive Positive O2 Delivery Device AVAPS Cannula Liter Flow 15.0 Crit Call To/Read Back Yes Yes Blood Gas Notified [facility] Radi[facility] Diagnostic Testing: Radiology Impression Chest X-Ray 11/28/21 17:20 IMPRESSION: Cardiomegaly with right basilar airspace disease and small consolidation. Findings consistent with pneumonia. at 1759 Reported and signed by: Rikki Hill MD Electronically Signed: Rikki Hill MD at 17:58 EST Tel , Service support , D/C Instructions Discharge Diet: No restrictions Meaningful Use Info Meaningful Use Diagnoses (Choose all that apply): None applicable Discharge Plan Admission Admit Date/Time: 11/28/21 18:49 Primary Reason for Your Visit: Acute combined respiratory failure Attending Provider: Meghann Caro Primary Care Provider: Rita Melton Discharge Orders/Prescriptions Prescriptions: No Action Oxygen, Home [Home Oxygen] 4 - 6 lpm NASAL PRN PRN (Reason: breathing) Qty: 0 RF: 0 gabapentin 600 MG tablet 1,200 mg PO TID RF: 0 atorvastatin 10 MG tablet 10 mg PO DAILY RF: 0 ipratropium-albuterol 0.5 mg-3 mg(2.5 mg base)/3 mL solution for nebulization 3 ml inhalation Q4H RF: 0 omeprazole 20 mg capsule,delayed release(DR/EC) 20 mg PO DAILY RF: 0 albuterol sulfate 90 mcg/actuation HFA aerosol inhaler 2 puff INHALATION Q4H PRN PRN (Reason: COPD) RF: 0 cholecalciferol (vitamin D3) [Vitamin D3] 25 mcg (1,000 unit) tablet 1,000 unit PO DAILY RF: 0 budesonide-formoterol [Symbicort] 160-4.5 mcg/actuation HFA aerosol inhaler 2 puff INHALATION BID RF: 0 Lantus Solostar U-100 Insulin 100 unit/mL (3 mL) Insulin Pen 40 unit subcut BID Qty: 15 RF: 0 clopidogrel 75 mg Tablet 75 mg PO DAILY Qty: 30 RF: 0 amlodipine 10 mg Tablet 10 mg PO DAILY Qty: 30 RF: 0 insulin lispro [Humalog KwikPen Insulin] 100 unit/mL Insulin Pen See Protocol unit subcut ACHS Qty: 15 RF: 0 lisinopril 20 mg tablet 20 mg PO DAILY Qty: 30 RF: 1 furosemide 20 mg tablet 20 mg PO DAILY Qty: 30 RF: 1 amoxicillin-pot clavulanate 875-125 mg tablet 1 tab PO BID Qty: 4 RF: 0 Referrals / Follow Up: Rita Melton MD [Primary Care Provider] - Disposition Disposition (needs filled in before D/C Order can be placed): Hospice in Medical Facility Charges/Coding Visit Charges Inpatient E&M: 43779 Disch Hosp
--- NOTE | 2021-11-29 16:45 | CASEMGMT ---
Patient has been approved for the inpatient Hospice unit. DIMITRY faxed d/c information and DNR to Hospice. DIMITRY called Yamini with Hospice and let her know that patient will be coming at 530. However, there was a misunderstanding and transport showed up at 430. DIMITRY called Yamini at Hospice and let her know this information. DIMITRY notified RN and she will call report. Patient's mom is here and aware of transport. Plan: d/c to [facility] unit. [facility] transported. Vanessa WAGNER
--- NOTE | 2021-11-29 17:05 | NURSING ---
1650-mother in at bedside. ambulance here for transfer to hospice inpatient. report called to rn ambulatory with no questions voiced
== END 2021-11-29 16:52 | disposition hospice, inpatient (51) | DRG 133 ==
LOC: ED 18:17 → PCU 19:12
PROVIDERS: Emergency Provider Emergency Medicine; PCP Internal Medicine; Visit Provider Internal Medicine
DX: J96.21 Acute and chronic respiratory failure with hypoxia (principal); I50.33 Acute on chronic diastolic (congestive) heart failure; G93.41 Metabolic encephalopathy; I11.0 Hypertensive heart disease with heart failure; J15.6 Pneumonia due to other Gram-negative bacteria; Z99.81 Dependence on supplemental oxygen; J44.0 Chronic obstructive pulmonary disease with (acute) lower respiratory infection; J44.1 Chronic obstructive pulmonary disease with (acute) exacerbation; J96.22 Acute and chronic respiratory failure with hypercapnia; E11.9 Type 2 diabetes mellitus without complications; E66.01 Morbid (severe) obesity due to excess calories; Z68.41 Body mass index [BMI] 40.0-44.9, adult; Z79.4 Long term (current) use of insulin; I25.10 Atherosclerotic heart disease of native coronary artery without angina pectoris; K21.9 Gastro-esophageal reflux disease without esophagitis; G47.33 Obstructive sleep apnea (adult) (pediatric); Z20.822 Contact with and (suspected) exposure to COVID-19; R77.8 Other specified abnormalities of plasma proteins; Z87.891 Personal history of nicotine dependence; G89.29 Other chronic pain; Z66 Do not resuscitate
CPT/HCPCS: 36415; 36600; 71045; 80053; 82803; 83605; 83735; 83880; 84484; 85025; 87040; 87426; 87449; 87635; 87804; 93005; 94002; 94640; 99251; 99285; J7040; J7050; A4216; G0463; J1940; U0003; U0005